=== PATIENT | female | born 1960 | race African-American/Black ===

== ENCOUNTER 2016-11-25 14:39 | Inpatient (IN) | payer MEDICARE, OTHER ==
[~2016-11-25] VITALS: Ht 162.6 cm; Wt 98.0 kg
[~2016-11-25 14:39] MED LIST: DIPH25CA58 PO; HYDR-963 PO; HYDR200T PO; IBUP-1027 PO; MULT1TAB52 PO; OXYC-323 PO; OXYC1TAB9 PO
[2016-11-25] MEDS ORDERED: IV NORMAL SALINE 1000ML BAG 1,000 ML IV ONE (15:15)
--- NOTE | 2016-11-25 15:26 | EKG ---
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
--- NOTE | 2016-11-25 15:30 | RAD ---
Indication change in mental status. Suspect CVA. Protocol study. A single view of the chest was obtained. Comparison is made to a previous examination 02/03/2015. Heart size is unremarkable. There is no congestive heart failure. A left Port-A-Cath is noted. Tiny calcified parenchymal granulomas are noted. An acute parenchymal infiltrate is not seen. A significant change compared to the prior study is not apparent. IMPRESSION: No acute finding. No significant change
[2016-11-25 15:31] LABS: BASO % 0 % (0-3); EOS % 0 % (0-3); HEMATOCRIT 43.1 % (36.0-47.0); HEMOGLOBIN 15.1 g/dL (12.0-15.5); LYMPH # 0.2 x10^3/uL (1.0-4.8); LYMPH % 4 % (24-48); MEAN CORPUSCULAR HEMOGLOBIN 30 pg (25-35); MEAN CORPUSCULAR HGB CONC 35 g/dL (31-37); MEAN CORPUSCULAR VOLUME 86 fL (79-100); MONO % 6 % (0-9); NEUT % 89 % (31-73); PLATELET COUNT 56 x10^3/uL (140-400); RED BLOOD COUNT 5.01 x10^6/uL (3.50-5.40); RED CELL DISTRIBUTION WIDTH 13.8 % (11.5-14.5); WHITE BLOOD COUNT 5.6 x10^3/uL (4.0-11.0)
[2016-11-25 15:36] LABS: INR 1.3 (0.8-1.1); PROTHROMBIN TIME PATIENT 15.6 SEC (11.7-14.0)
--- NOTE | 2016-11-25 15:46 | PHYS DOC ---
Past Medical History Past Medical History: Bipolar, Bronchitis, Other Additional Past Medical Histor: DJD,Lupus"in the skin not in the blood." Past Surgical History: Cholecystectomy, Tonsillectomy, Other Additional Past Surgical Histo: Bone spurs in neck. Alcohol Use: Occasionally Drug Use: Marijuana, Other Adult General Chief Complaint Chief Complaint: ALTERED MENTAL STATUS [facility] HPI Patient is a 55 year old female presenting to the emergency department for evaluation of altered mental status. Reportedly someone from her apartment complex came to check on her as known had seen her in 3 days and she was found passed out on the floor. EMS was called and they brought her to the emergency department for further evaluation. Patient is oriented to place and person but very confused on the day and she appears somewhat lethargic. She has some dried substance around her mouth and her mouth appears very dry. There is no obvious signs of trauma on her that there is some dried scab on the back of her head. She denies any pain to me. As we were looking through her purse to check for her medications she had a pill bottle of 5 mg oxycodone was written on November 14 for 180 pills that may be 30 pills were left in the bottle. Nurse later also found a white powdery substance as well. Review of Systems Review of Systems Constitutional: Denies fever or chills [] Eyes: Denies change in visual acuity, redness, or eye pain [] HENT: Denies nasal congestion or sore throat [] Respiratory: Denies cough or shortness of breath [] Cardiovascular: No additional information not addressed in HPI [] GI: Denies abdominal pain, nausea, vomiting, bloody stools or diarrhea [] : Denies dysuria or hematuria [] Musculoskeletal: Denies back pain or joint pain [] Integument: Denies rash or skin lesions [] Neurologic: Denies headache, focal weakness or sensory changes [] Endocrine: Denies polyuria or polydipsia [] Current Medications Current Medications Current Medications Medications (Trade) Dose Ordered Sig/Altaf Start Time Stop Time Status Last Admin Dose Admin Sodium Chloride 1,000 ml @ 1,000 mls/hr 1X ONCE 11/25/16 15:15 11/25/16 16:14 DC 11/25/16 15:56 1,000 MLS/HR Allergies Allergies Allergies Coded Allergies Type Severity Reaction Last Updated Verified Penicillins Adverse Reaction Intermediate NAUSEA AND VOMITING WITH PENICILLIN INJECTIONS/ORAL IS OK 05/12/15 Yes diazepam Adverse Reaction Intermediate NAUSEA AND VOMITING WITH IV DOSES/OK WITH ORAL FORM 05/12/15 Yes ibuprofen Adverse Reaction Intermediate LARGE DOSES CAUSE GI UPSET 05/12/15 Yes Physical Exam Physical Exam Constitutional: Well developed, well nourished, no acute distress, non-toxic appearance. [] HENT: Normocephalic, atraumatic, bilateral external ears normal, oropharynx dry Eyes: PERRLA, EOMI, conjunctiva normal, no discharge. [] Neck: Normal range of motion, no tenderness, supple, no stridor. [] Cardiovascular:Heart rate regular rhythm, no murmur [] Lungs & Thorax: Bilateral breath sounds clear to auscultation [] Abdomen: Bowel sounds normal, soft, mild lower tenderness, no rebound or guarding no masses, no pulsatile masses. [] Skin: Right volar wrist with multiple small red appearing lesions that were flat and non-blanchable. Back: No tenderness, no CVA tenderness. [] Extremities: No tenderness, no cyanosis, no clubbing, ROM intact, no edema. [] Neurologic: Alert and oriented X 2, moves all extremities Current Patient Data Vital Signs Vital Signs Date Time Temp Pulse Resp B/P (MAP) Pulse Ox O2 Delivery O2 Flow Rate FiO2 11/25/16 16:30 92 23 108/61 (77) 96 Room Air 11/25/16 14:39 98.5 98.5 Lab Values Laboratory Tests Test 11/25/16 14:55 11/25/16 15:41 White Blood Count 5.6 x10^3/uL (4.0-11.0) Red Blood Count 5.01 x10^6/uL (3.50-5.40) Hemoglobin 15.1 g/dL (12.0-15.5) Hematocrit 43.1 % (36.0-47.0) Mean Corpuscular Volume 86 fL (79-100) Mean Corpuscular Hemoglobin 30 pg (25-35) Mean Corpuscular Hemoglobin Concent 35 g/dL (31-37) Red Cell Distribution Width 13.8 % (11.5-14.5) Platelet Count 56 x10^3/uL (140-400) L Neutrophils (%) (Auto) 89 % (31-73) H Lymphocytes (%) (Auto) 4 % (24-48) L Monocytes (%) (Auto) 6 % (0-9) Eosinophils (%) (Auto) 0 % (0-3) Basophils (%) (Auto) 0 % (0-3) Neutrophils # (Auto) 5.0 x10^3uL (1.8-7.7) Lymphocytes # (Auto) 0.2 x10^3/uL (1.0-4.8) L Monocytes # (Auto) 0.4 x10^3/uL (0.0-1.1) Eosinophils # (Auto) 0.0 x10^3/uL (0.0-0.7) Basophils # (Auto) 0.0 x10^3/uL (0.0-0.2) Prothrombin Time 15.6 SEC (11.7-14.0) H Prothrombin Time INR 1.3 (0.8-1.1) H PTT 29 SEC (24-38) Sodium Level 125 mmol/L (136-145) L Potassium Level 2.3 mmol/L (3.5-5.1) *L Chloride Level 88 mmol/L (98-107) L Carbon Dioxide Level 23 mmol/L (21-32) Anion Gap 14 (6-14) Blood Urea Nitrogen 12 mg/dL (7-20) Creatinine 0.7 mg/dL (0.6-1.0) Estimated GFR (Cockcroft-Gault) 105.1 BUN/Creatinine Ratio 17 (6-20) Glucose Level 113 mg/dL (70-99) H Lactic Acid Level 2.0 mmol/L (0.4-2.0) Calcium Level 8.9 mg/dL (8.5-10.1) Magnesium Level 2.0 mg/dL (1.8-2.4) Total Bilirubin 1.3 mg/dL (0.2-1.0) H Aspartate Amino Transferase (AST) 88 U/L (15-37) H Alanine Aminotransferase (ALT) 43 U/L (14-59) Alkaline Phosphatase 74 U/L (46-116) Creatine Kinase 1113 U/L (26-192) H Troponin I Quantitative 0.046 ng/mL (0.000-0.055) [id number]-Type Natriuretic Peptide 6907 pg/mL (0-124) H Total Protein 7.1 g/dL (6.4-8.2) Albumin 2.8 g/dL (3.4-5.0) L Albumin/Globulin Ratio 0.7 (1.0-1.7) L Lipase 603 U/L (73-393) H Thyroid Stimulating Hormone (TSH) 0.586 uIU/mL (0.358-3.74) Salicylates Level < 2.8 mg/dL (2.8-20.0) L Salicylate Last Dose Date Unk Salicylate Last Dose Time Unk Acetaminophen Level < 10 mcg/ml (10-30) L Acetaminophen Last Dose Date Unk Acetaminophen Last Dose Time Unk Ethyl Alcohol Level < 10 mg/dL (0-10) Urine Collection Type U cath Urine Color [place] Urine Clarity Cloudy Urine pH 6.0 Urine Specific [place] 1.025 Urine Protein >=300 mg/dL (NEG-TRACE) Urine Glucose (UA) Negative mg/dL (NEG) Urine Ketones (Stick) 40 mg/dL (NEG) Urine Blood Large (NEG) Urine Nitrite Negative (NEG) Urine Bilirubin Small (NEG) Urine Urobilinogen Dipstick 1.0 mg/dL (0.2 mg/dL) Urine Leukocyte Esterase Small (NEG) Urine RBC Occ /HPF (0-2) Urine WBC 11-20 /HPF (0-4) Urine Squamous Epithelial Cells Few /LPF Urine Bacteria Many /HPF (0-FEW) Urine Hyaline Casts Few /HPF Urine Mucus Slight /LPF Urine Opiates Screen Neg (NEG) Urine Methadone Screen Neg (NEG) Urine Barbiturates Neg (NEG) Urine Phencyclidine Screen Neg (NEG) Urine Amphetamine/Methamphetamine Pos (NEG) Urine Benzodiazepines Screen Neg (NEG) Urine Cocaine Screen Neg (NEG) Urine Cannabinoids Screen Neg (NEG) Urine Ethyl Alcohol Neg (NEG) Laboratory Tests 11/25/16 14:55 Laboratory Tests 11/25/16 14:55 EKG EKG Sinus rhythm at 99 beats per minutes with leftward axis no deviation no obvious ST elevation or depression and normal T waves. Radiology/Procedures Radiology/Procedures Indication change in mental status. Suspect CVA. Protocol study. A single view of the chest was obtained. Comparison is made to a previous examination 02/03/2015. Heart size is unremarkable. There is no congestive heart failure. A left Port-A-Cath is noted. Tiny calcified parenchymal granulomas are noted. An acute parenchymal infiltrate is not seen. A significant change compared to the prior study is not apparent. IMPRESSION: No acute finding. No significant change DICTATED and SIGNED BY: BRITNEY MACDONALD MD DATE: 11/25/[address] of the head without contrast, 11/25/2016: History: Altered mental status The ventricles are within normal limits in size. There is no shift of the midline structures. There is no evidence of acute intracranial hemorrhage or mass effect. IMPRESSION: No acute intracranial abnormality is detected. PQRS Compliance Statement: One or more of the following individualized dose reduction techniques were utilized for this examination: 1. Automated exposure control 2. Adjustment of the mA and/or kV according to patient size 3. Use of iterative reconstruction technique DICTATED and SIGNED BY: NIMA ROD MD DATE: 11/25/16 1542 Course & Med Decision Making Course & Med Decision Making Patient with undifferentiated altered mental status however substance abuse seems to be the most likely etiology based off the information I have. We'll check screening labs give fluids and reassess. Patient is suffering from some sort of metabolic encephalopathy. She has some possible petechial. Lesions on her right wrist and she is thrombocytopenic so we 'll go ahead and give a dose of IV Rocephin. She has normal lactic acid and white blood cell count so she is not septic. Patient is profoundly hypokalemic so she was given an oral potassium pill in addition to potassium IV fluids. Patient will be admitted to the hospital in guarded condition given her mental status and profound metabolic derangements. Critical care time of 35 minutes Dragon Disclaimer Dragon Disclaimer This electronic medical record was generated, in whole or in part, using a voice recognition dictation system. Departure Departure Impression: Primary Impression: Encephalopathy acute Additional Impressions: Hypokalemia Hyponatremia Thrombocytopenia Disposition: 09 ADMITTED INPATIENT Admitting Physician: Other (REUSCH) Condition: GUARDED Referrals: AMA LR MD (PCP) Problem Qualifiers MARIE HURT DO Nov 25, 2016 15:46
--- NOTE | 2016-11-25 15:54 | ACF ---
Admit Criteria Forms Admit Criteria Forms Admit Criteria Forms MENTAL STATUS CHANGE Clinical Indications for Inpatient Care (Place 'X' for any and all applicable criteria): Ongoing inpatient care may be needed for 1 or more of the following(1)(2)(3)(5)( 6): [X]I. Suspected serious etiology (eg, medical disorder, WIRE SPLICER event) of altered mental status [ ]II. Danger to self or others not manageable at lower level of care [ ]III. Grave disability (eg, inability to perform self care necessary at lower level of care) [ ]IV. Agitation or inappropriate behavior interfering with care for primary condition (eg, attempting to discontinue lines or drains prematurely, unable to cooperate with respiratory care) [ ]V. Delirium [A] [D][E] as described by 1 or more of the following(26): [ ]a) Delirium due to alcohol or sedative [F] withdrawal [ ]b) Delirium of uncertain etiology that has not responded to appropriate empiric treatment [ ]c) Delirium that prevents performance of a life-sustaining function (eg, feeding or hydrating oneself) [X]. General contraindications and/or Inappropriate clinical situations for Observational Care in patients with Mental Status Change, when ANY ONE of the following is required: [X]a) Prediction of prolongation of LOS based on ANY ONE of the following may be considered as a contraindication for observational care 2, 3, 4, 5, 6, 7, 8, 9, 10, 11 [ ]i) Age > 65 yrs. [X]ii) Patient arriving by ambulance [ ]iii) Patient with high acuity [ ]iv) Patient requiring vital sign monitoring [ ]v) Patient on IV medication [ ]b) Systolic blood pressures greater than or equal to 180mmHg 3, 12 [ ]c) Patient with altered mental status including delirium and other alteration of consciousness, (3) [ ]d) Patient whose discharge disposition will be to a [place] [facility] home or rehabilitation home should not be managed in Emergency Department Observation Unit. CMS rule requires 3 days hospital stay before such placement.3,13 [ ]e) Patient with failure to thrive due to broad array of etiologies 3,16,17 [ ]f) Inability to ambulate 3,14 Extended stay beyond goal length of stay for the primary condition may be needed until ALL of the following are present(3)(5): [ ]a) Underlying medical etiology of mental status change is absent, or has been established and adequately treated [ ]b) Danger to self or others is absent or manageable at lower level of care. [ ]c) Behavior crisis management, including physical or chemical restraints, is not required or available at lower level of car [ ]d) Substance or alcohol withdrawal is absent or manageable at lower level of care. [ ]e) Behavioral symptoms (eg, agitation, somnolence, inappropriate behavior) are absent, or are manageable at lower level of care. The original [facility] content created by [facility] has been revised. The portions of the content which have been revised are identified through the use of italic text or in bold, and [facility] has neither reviewed nor approved the modified material. All other unmodified content is copyright [facility]. Please see references footnoted in the original [facility] [employer] edition 2016 SDUHA MATTSON Nov 25, 2016 15:54
[2016-11-25 15:56] LABS: BILIRUBIN,URINE SMALL (NEG); GLUCOSE,URINE NEGATIVE (NEG); NITRITE,URINE NEGATIVE (NEG); PROTEIN,URINE >=300 mg/dL (NEG-TRACE)
[2016-11-25 16:03] LABS: BARBITURATES NEG (NEG); BENZODIAZEPINES NEG (NEG); CANNABINOIDS NEG (NEG); COCAINE NEG (NEG); METHADONE NEG (NEG); OPIATES NEG (NEG); PHENCYCLIDINE NEG (NEG)
[2016-11-25 16:16] LABS: ETHANOL < 10 mg/dL (0-10)
[2016-11-25 16:28] LABS: ALBUMIN 2.8 g/dL (3.4-5.0); ALBUMIN/GLOBULIN RATIO 0.7 (1.0-1.7); CALCIUM 8.9 mg/dL (8.5-10.1); CREATININE 0.7 mg/dL (0.6-1.0); GFR 105.1; TOTAL BILIRUBIN 1.3 mg/dL (0.2-1.0); TOTAL PROTEIN 7.1 g/dL (6.4-8.2)
[2016-11-25 16:43] LABS: POTASSIUM 2.3 mmol/L (3.5-5.1)
[2016-11-25 16:45] LABS: BACTERIA,URINE MANY /HPF (0-FEW); RBC,URINE OCC /HPF (0-2); SQUAMOUS EPITHELIAL CELL,UR FEW /LPF
[2016-11-25] MEDS ORDERED: ONDANSETRON PF 4 MG/2 ML VIAL. IV PRN (16:45)
[2016-11-25] MEDS ORDERED: POTASSIUM CL 40MEQ IN 0.9%NACL 1,000 ML IV ONE (17:00)
[2016-11-25] MEDS ORDERED: POTASSIUM CHLORIDE 20 MEQ TABLET.ER. PO ONE (17:00)
[2016-11-25] MEDS ORDERED: POTASSIUM CL 40MEQ D5-0.45NACL 1,000 ML IV ONE (17:00)
[2016-11-25 19:00] VITALS: BP 118/71
[2016-11-25] MEDS ORDERED: HYDR200T5 PO (20:54)
[2016-11-25] MEDS ORDERED: HYDR25TA PO (20:54)
[2016-11-25] MEDS ORDERED: ALPR0.254 PO (20:54)
[2016-11-25] MEDS ORDERED: BUPR100T11 PO (20:54)
[2016-11-25] MEDS ORDERED: CLON0.1T PO (20:54)
[2016-11-25] MEDS ORDERED: [UNRECOGNIZED DRUG - CODE] NS (20:54)
[2016-11-25] MEDS ORDERED: ONDA8TAB14 PO (20:54)
[2016-11-25] MEDS ORDERED: GABA300C8 PO (20:54)
[2016-11-25] MEDS ORDERED: DULO60CA44 PO (20:54)
[2016-11-25] MEDS ORDERED: FURO20TA3 PO (20:54)
[2016-11-25] MEDS ORDERED: ROPI0.252 PO (20:54)
[2016-11-25] MEDS ORDERED: RANI150C PO (20:54)
[2016-11-25] MEDS ORDERED: NYST15CR TP (20:54)
[2016-11-25] MEDS ORDERED: ALBU1.25 NEB (20:54)
[2016-11-25] MEDS ORDERED: OXYC5TAB PO (20:54)
[2016-11-25] MEDS ORDERED: AZIT250T6 PO (20:54)
[2016-11-25] MEDS ORDERED: LISI-334 PO (20:54)
[2016-11-25] MEDS ORDERED: PREG150C PO (20:54)
[2016-11-25] MEDS ORDERED: FAMC125T PO (20:54)
[2016-11-25] MEDS ORDERED: ALPRAZolam 0.25 MG TABLET PO PRN (21:00)
[2016-11-25] MEDS: NYSTATIN 100,000 UNIT/GM TOPICAL CREAM 15GM TUBE. TP SCH (21:00)
[2016-11-25] MEDS ORDERED: IBUPROFEN 400 MG TABLET. PO PRN (21:00)
--- NOTE | 2016-11-25 22:07 | HP ---
ADMIT DATE: 11/25/2016 CHIEF COMPLAINT: Altered mental status. HISTORY OF PRESENT ILLNESS: This is a 55-year-old woman with past medical history of bipolar, systemic lupus as well as breast cancer with completed treatment by the end of last year, who presented to the Emergency Room with altered mental status. Reportedly, she was found down by one of her friends in the apartment complex when she was noted to be absent from the community for about 3 days. EMS was called, and she was brought in for further evaluation and treatment. The patient was still confused in the Emergency Room and appears lethargic. This seems to be continuing at this time. She is not quite sure what happened. She denies any pain currently. She does have two scabs in the back of her head with dried blood. In the Emergency Room, her purse was examined, and oxycodone bottle was found, which had been written on 11/14/2016 with 180 pills. The vast majority of these were gone. A white powder was found as well, and the patient's drug screen was found positive for methamphetamine, negative for opioids. The patient is now admitted for further management and care. PAST MEDICAL HISTORY: Bipolar disorder, lupus, on Plaquenil; breast cancer, T2N1A HER2 positive, completed Herceptin by the end of last year; DJD with bone spurs in her neck, and bronchitis. FAMILY HISTORY: No known disorders prevalent. SOCIAL HISTORY: Lives by herself, admits to marijuana. Denies any methamphetamine use. ALLERGIES: No known drug allergies. MEDICATIONS: MAR reconciled with home meds. REVIEW OF SYSTEMS: The patient currently denies any pain. She is lethargic and cannot recall any further details but is aware that she is now at [facility]. Rest of organ system review is negative. PHYSICAL EXAMINATION: VITAL SIGNS: From today show a blood pressure of 126/69, heart rate of 96, respiratory rate of 23. She is afebrile. GENERAL: This is a 55-year-old, obese, woman, lethargic, responding appropriately, but significant memory lapses about the recent history. HEENT: Shows no scleral icterus. Oral mucosa is very dry. NECK: Supple. LUNGS: Clear. HEART: Regular rate and rhythm. ABDOMEN: Obese, positive bowel sounds. EXTREMITIES: Show no edema. Medial upper thighs with erythema. LABORATORY DATA: CBC with a WBC of 5.6, hemoglobin 15.1, and platelets of 56. Neutrophils at 89%. Chemistries with a BUN and creatinine of 12 and 0.7, potassium at 2.3, sodium 125, CO2 at 23, total bilirubin 1.3, AST at 88, CK 1113, proBNP 6907, albumin 2.8, lipase at 603, and initial troponin 0.046. Coags with a PT and PTT of 15.6 and 2.9. Of note, historical data revealed hepatitis C positive in 2013. Toxicology screen is positive for methamphetamines and negative for opioids or other drugs. IMAGING STUDIES: Chest x-ray with no acute findings. CT of the head is revealing no acute intracranial abnormality. ASSESSMENT AND PLAN: The patient is a 55-year-old woman with several medical issues who was found down for unknown etiology. Apparently, she did have some diarrhea at home. It is unclear how long this had been going on. This would certainly explain the sides of dehydration as well as low potassium. We will give IV fluids, replete electrolytes, monitor magnesium, phos, and potassium as well as sodium. 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 It is unclear if she actually is taking these as her screen has been negative. She maintains that in the past 4 days she has not been able to eat or drink anything. Nevertheless, over 100 pills are missing from her bottle which was just issued 1 week ago. This in conjunction with methamphetamine in her drug screen is somewhat suspicious for abuse, potential sale of her prescription medications. We will hold off for now. For neuropathy, she would be better served with Neurontin. The patient is on Plaquenil for her lupus. We will continue the medications as no blood count abnormality except for thrombocytopenia as noted. Although this is a potential side effect, I doubt that this is related. Monitor counts closely. The patient does have a historical finding of hepatitis C with genotype 1A. This is unclear if she was ever treated for this. The elevated liver function tests may be related versus more acute issue. We will monitor labs for the time being. For prophylaxis, we will omit heparin or heparinoids for the time being given her low platelet count. SCDs and compression stockings will be instituted. For reflux disease, we will start proton pump inhibitor. RICO WOODWARD MD DR: MEHNAZ/nts JOB#: [id number] / [id number] A Crowder MD [facility]
[2016-11-25] MEDS: POTASSIUM CHLORIDE 30 MEQ in IV NORMAL SALINE 1000ML BAG 1,000 ML IV SCH (22:25)
[2016-11-25] MEDS: GABAPENTIN 300 MG CAPSULE. PO SCH (22:26)
[2016-11-25] MEDS: FAMOTIDINE 20 MG TABLET. PO SCH (22:26)
[2016-11-25] MEDS: buPROPion 100 MG TABLET PO SCH (22:26)
[2016-11-25 23:00] VITALS: BP 120/52
[2016-11-26] MEDS ORDERED: NON FORMULARY ITEM (Albuterol Sulfate (Albuterol Sulfate Neb Soln) 1 VIAL) NEB SCH
[2016-11-26 03:00] VITALS: BP 128/75
[2016-11-26 06:39] LABS: CALCIUM 8.9 mg/dL (8.5-10.1); CREATININE 0.7 mg/dL (0.6-1.0); GFR 105.1
[2016-11-26 06:48] LABS: ALBUMIN 2.4 g/dL (3.4-5.0); DIRECT BILIRUBIN 0.5 mg/dL (0.0-0.2); MAGNESIUM 1.8 mg/dL (1.8-2.4); TOTAL PROTEIN 5.8 g/dL (6.4-8.2)
[2016-11-26 06:50] LABS: POTASSIUM 2.9 mmol/L (3.5-5.1)
[2016-11-26 07:00] VITALS: BP 117/69
[2016-11-26 07:22] LABS: BASO % 0 % (0-3); EOS % 1 % (0-3); HEMATOCRIT 37.6 % (36.0-47.0); LYMPH # 0.3 x10^3/uL (1.0-4.8); LYMPH % 7 % (24-48); MEAN CORPUSCULAR HEMOGLOBIN 30 pg (25-35); MEAN CORPUSCULAR HGB CONC 35 g/dL (31-37); MEAN CORPUSCULAR VOLUME 87 fL (79-100); MONO % 8 % (0-9); NEUT % 84 % (31-73); PLATELET COUNT 39 x10^3/uL (140-400); RED CELL DISTRIBUTION WIDTH 14.3 % (11.5-14.5); WHITE BLOOD COUNT 4.1 x10^3/uL (4.0-11.0)
[2016-11-26] MEDS: POTASSIUM CHLORIDE 20 MEQ TABLET.ER. PO SCH ×2 (08:46→12:14)
[2016-11-26] MEDS: CROMOLYN 4% NASAL SPRAY 26ML BOTTLE. NS SCH (08:47)
[2016-11-26] MEDS: DULoxetine HCL 30 MG CAPSULE.DR PO SCH (08:48)
[2016-11-26] MEDS: cloNIDine HCL 0.1 MG TABLET PO SCH (08:48)
[2016-11-26] MEDS: FAMOTIDINE 20 MG TABLET. PO SCH ×2 (08:49→20:51)
[2016-11-26] MEDS: GABAPENTIN 300 MG CAPSULE. PO SCH ×2 (08:49→20:51)
[2016-11-26] MEDS: HYDROXYCHLOROQUINE 200 MG TABLET PO SCH (08:49)
[2016-11-26] MEDS: MULTIVITAMIN with MINERAL TABLET. PO SCH (08:50)
[2016-11-26] MEDS: LISINOPRIL 20 MG TABLET PO SCH (08:50)
[2016-11-26] MEDS: ONDANSETRON ODT 4 MG TAB.RAPDIS. PO SCH (08:51)
[2016-11-26] MEDS: NYSTATIN 100,000 UNIT/GM TOPICAL CREAM 15GM TUBE. TP SCH ×2 (08:52→20:53)
[2016-11-26 09:47] LABS: % EOS 1 % (0-5)
[2016-11-26 09:48] LABS: PLT ESTIMATE DECREASED (ADEQUATE)
[2016-11-26] MEDS: buPROPion 100 MG TABLET PO SCH ×2 (10:17→20:53)
[2016-11-26] MEDS: hydrOXYzine 10 MG TABLET PO SCH (10:17)
[2016-11-26 11:00] VITALS: BP 92/50
[2016-11-26] MEDS: POTASSIUM CHLORIDE 30 MEQ in IV NORMAL SALINE 1000ML BAG 1,000 ML IV SCH ×2 (12:13→17:18)
[2016-11-26 15:00] VITALS: BP 87/44
--- NOTE | 2016-11-26 15:51 | PDOC ---
PROGRESS NOTES Chief Complaint Chief Complaint Altered mental status Electrolyte derangements ASSESSMENT AND PLAN: 1. Encephalopathy: suspected metabolic/toxic, but cannot r/o hepatic or malignant. remains lethargic, but answering appropriately. NH3 pending. MRI brain ordered as well 2. UTI: empiric ceftriax. prelim culture with GNR 3. Diarrhea: intermittent; C.diff pending 4. Hyponatremia, Hypokalemia: severe; replete IV and PO 5. HCV 1A: dx.ed 3 yrs ago; unclear if treated. mild hepatitis by labs is sl improved. monitor; check NH3; viral load PCR only available on O/P basis 6. Peripheral neuropathy: chemo incuced. on lortab, but UDS neg for opioids... stop narcotics, start neurontin if indicated (currently no c/o) 7. Drug abuse: UDS is positive for meth, which she denies using 8. SLE: on plaquenil; cont home med 9. Thrombocytopenia: poss 2/2 plaquenil vs HCV induced. 10. Breast CA: completed triple rx last 11. GERD: PPI 12. Prophylaxis: SCDs. hold SQ 2/2 thrombocytopenia History of Present Illness History of Present Illness no pain. not feeling like getting up because "there is nothing to do" Vitals Vitals Vital Signs Date Time Temp Pulse Resp B/P (MAP) Pulse Ox O2 Delivery O2 Flow Rate FiO2 11/26/16 11:00 97.8 64 18 92/50 (64) 96 Room Air 97.8 Physical Exam General: Cooperative, No acute distress, Other (lethargic, answering appropriately) Heart: Regular rate Lungs: Clear Abdomen: Normal bowel sounds, Soft, No tenderness Extremities: No edema Skin: Other (erythema on neck and upper chest, per pt, c/w her SLE) Labs LABS Laboratory Tests Test 11/25/16 15:41 11/25/16 21:30 11/25/16 23:54 11/26/16 06:15 Urine Collection Type U cath Urine Color [place] Urine Clarity Cloudy Urine pH 6.0 Urine Specific [place] 1.025 Urine Protein >=300 mg/dL (NEG-TRACE) Urine Glucose (UA) Negative mg/dL (NEG) Urine Ketones (Stick) 40 mg/dL (NEG) Urine Blood Large (NEG) Urine Nitrite Negative (NEG) Urine Bilirubin Small (NEG) Urine Urobilinogen Dipstick 1.0 mg/dL (0.2 mg/dL) Urine Leukocyte Esterase Small (NEG) Urine RBC Occ /HPF (0-2) Urine WBC 11-20 /HPF (0-4) Urine Squamous Epithelial Cells Few /LPF Urine Bacteria Many /HPF (0-FEW) Urine Hyaline Casts Few /HPF Urine Mucus Slight /LPF Urine Opiates Screen Neg (NEG) Urine Methadone Screen Neg (NEG) Urine Barbiturates Neg (NEG) Urine Phencyclidine Screen Neg (NEG) Urine Amphetamine/Methamphetamine Pos (NEG) Urine Benzodiazepines Screen Neg (NEG) Urine Cocaine Screen Neg (NEG) Urine Cannabinoids Screen Neg (NEG) Urine Ethyl Alcohol Neg (NEG) Nasal Screen MRSA (PCR) Positive (Negative) Clostridium difficile Toxin (PCR) Negative (Negative) White Blood Count 4.1 x10^3/uL (4.0-11.0) Red Blood Count 4.30 x10^6/uL (3.50-5.40) Hemoglobin 13.0 g/dL (12.0-15.5) Hematocrit 37.6 % (36.0-47.0) Mean Corpuscular Volume 87 fL (79-100) Mean Corpuscular Hemoglobin 30 pg (25-35) Mean Corpuscular Hemoglobin Concent 35 g/dL (31-37) Red Cell Distribution Width 14.3 % (11.5-14.5) Platelet Count 39 x10^3/uL (140-400) Neutrophils (%) (Auto) 84 % (31-73) Lymphocytes (%) (Auto) 7 % (24-48) Monocytes (%) (Auto) 8 % (0-9) Eosinophils (%) (Auto) 1 % (0-3) Basophils (%) (Auto) 0 % (0-3) Neutrophils # (Auto) 3.4 x10^3uL (1.8-7.7) Lymphocytes # (Auto) 0.3 x10^3/uL (1.0-4.8) Monocytes # (Auto) 0.3 x10^3/uL (0.0-1.1) Eosinophils # (Auto) 0.0 x10^3/uL (0.0-0.7) Basophils # (Auto) 0.0 x10^3/uL (0.0-0.2) Segmented Neutrophils % 75 % (35-66) Band Neutrophils % 16 % (0-9) Lymphocytes % 3 % (24-48) Monocytes % 4 % (0-10) Eosinophils % 1 % (0-5) Metamyelocytes % 1 % (0-0) Platelet Estimate Decreased (ADEQUATE) Sodium Level 126 mmol/L (136-145) Potassium Level 2.9 mmol/L (3.5-5.1) Chloride Level 91 mmol/L (98-107) Carbon Dioxide Level 24 mmol/L (21-32) Anion Gap 11 (6-14) Blood Urea Nitrogen 10 mg/dL (7-20) Creatinine 0.7 mg/dL (0.6-1.0) Estimated GFR (Cockcroft-Gault) 105.1 Glucose Level 93 mg/dL (70-99) Calcium Level 8.9 mg/dL (8.5-10.1) Magnesium Level 1.8 mg/dL (1.8-2.4) Total Bilirubin 1.0 mg/dL (0.2-1.0) Direct Bilirubin 0.5 mg/dL (0.0-0.2) Aspartate Amino Transf (AST/SGOT) 73 U/L (15-37) Alanine Aminotransferase (ALT/SGPT) 37 U/L (14-59) Alkaline Phosphatase 64 U/L (46-116) Total Protein 5.8 g/dL (6.4-8.2) Albumin 2.4 g/dL (3.4-5.0) RICO WOODWARD MD Nov 26, 2016 15:51
[2016-11-26] MEDS: ALBUTEROL SULFATE 2.5 MG/3 ML NEBU. NEB SCH ×3 (16:00→17:16)
[2016-11-26] MEDS ORDERED: GADOBUTROL 10 MMOL/10 ML VIAL IV ONE (16:30)
--- NOTE | 2016-11-26 17:04 | RAD ---
MR BRAIN HISTORY: NO PRIORS....GAVE 9ML GADAVIST...GENERALIZED WEAKENS MENTAL STATUS CHANGE... TECHNIQUE: Axial diffusion weighted imaging was obtained. Additional sagittal T1, axial T1, axial FLAIR, and axial T2 weighted imaging of the brain was also performed. FINDINGS: There are a few scattered foci of FLAIR signal hyperintensity in the bilateral cerebral white matter. Nonspecific lesions but commonly related to sequelae of chronic small vessel ischemic disease. No evidence of acute intracranial hemorrhage. There is restricted diffusion involving the central portion of the splenium at midline. This shows very slight T2 hyperintensity. No extra-axial fluid collections. No midline shift or mass effect. Ventricular size is appropriate. There is a small focus of hemosiderin deposition in the posteromedial right temporal lobe likely from previous tiny microhemorrhage. Midline structures have a normal anatomic configuration. Basal cisterns are patent. Arterial flow voids at the skull base and major dural venous sinuses are maintained. Globes and orbits are unremarkable. Paranasal sinuses and mastoid air cells are clear. IMPRESSION: There is some restricted diffusion noted in the midline involving the splenium of the corpus callosum. This could represent a splenule infarct but is also a common place for artifact from the sudden cessation of antiepileptic medication or associated with patient's experiencing mild encephalitis/encephalopathy. ( Mild encephalopathy/encephalitis with reversible splenium lesion MERS). The latter is favored given the lack of other territorial areas of restricted diffusion. A follow-up MRI could confirm or refute this. Electronically signed by: Hunter Michaud MD (11/26/2016 5:01 PM)
[2016-11-26 18:41] LABS: BASO % 0 % (0-3); EOS % 1 % (0-3); HEMATOCRIT 38.9 % (36.0-47.0); HEMOGLOBIN 13.2 g/dL (12.0-15.5); LYMPH # 0.3 x10^3/uL (1.0-4.8); LYMPH % 10 % (24-48); MEAN CORPUSCULAR HEMOGLOBIN 30 pg (25-35); MEAN CORPUSCULAR HGB CONC 34 g/dL (31-37); MEAN CORPUSCULAR VOLUME 88 fL (79-100); MONO % 10 % (0-9); NEUT % 79 % (31-73); PLATELET COUNT 34 x10^3/uL (140-400); RED BLOOD COUNT 4.41 x10^6/uL (3.50-5.40); RED CELL DISTRIBUTION WIDTH 14.3 % (11.5-14.5); WHITE BLOOD COUNT 3.3 x10^3/uL (4.0-11.0)
[2016-11-26 18:49] LABS: ALBUMIN 2.4 g/dL (3.4-5.0); ALBUMIN/GLOBULIN RATIO 0.6 (1.0-1.7); CALCIUM 8.9 mg/dL (8.5-10.1); CREATININE 0.9 mg/dL (0.6-1.0); GFR 78.7; POTASSIUM 3.8 mmol/L (3.5-5.1); TOTAL PROTEIN 6.5 g/dL (6.4-8.2)
[2016-11-26 19:00] VITALS: BP 97/54
[2016-11-26 23:00] VITALS: BP 83/50
[2016-11-27] MEDS: POTASSIUM CHLORIDE 30 MEQ in IV NORMAL SALINE 1000ML BAG 1,000 ML IV SCH ×2 (00:13→09:18)
[2016-11-27 03:00] VITALS: BP 105/55
[2016-11-27 07:00] VITALS: BP 121/69
[2016-11-27] MEDS: ALBUTEROL SULFATE 2.5 MG/3 ML NEBU. NEB SCH ×4 (07:12→20:07)
[2016-11-27] MEDS: POTASSIUM CHLORIDE 20 MEQ TABLET.ER. PO SCH ×2 (08:34→11:52)
[2016-11-27] MEDS: CROMOLYN 4% NASAL SPRAY 26ML BOTTLE. NS SCH (08:34)
[2016-11-27] MEDS: hydrOXYzine 10 MG TABLET PO SCH (08:37)
[2016-11-27] MEDS: cloNIDine HCL 0.1 MG TABLET PO SCH (08:37)
[2016-11-27] MEDS: DULoxetine HCL 30 MG CAPSULE.DR PO SCH (08:38)
[2016-11-27] MEDS: GABAPENTIN 300 MG CAPSULE. PO SCH ×2 (08:38→21:03)
[2016-11-27] MEDS: HYDROXYCHLOROQUINE 200 MG TABLET PO SCH (08:39)
[2016-11-27] MEDS: FAMOTIDINE 20 MG TABLET. PO SCH ×2 (08:39→21:03)
[2016-11-27] MEDS: LISINOPRIL 20 MG TABLET PO SCH (08:39)
[2016-11-27] MEDS: MULTIVITAMIN with MINERAL TABLET. PO SCH (08:39)
[2016-11-27] MEDS: ONDANSETRON ODT 4 MG TAB.RAPDIS. PO SCH (08:40)
[2016-11-27] MEDS: buPROPion 100 MG TABLET PO SCH ×2 (08:40→21:03)
[2016-11-27] MEDS: NYSTATIN 100,000 UNIT/GM TOPICAL CREAM 15GM TUBE. TP SCH ×2 (08:41→21:03)
[2016-11-27] MEDS ORDERED: oxyCODONE IR 5 MG TABLET PO PRN (10:15)
[2016-11-27 10:58] VITALS: BP 96/57
--- NOTE | 2016-11-27 13:05 | PDOC ---
PROGRESS NOTES Chief Complaint Chief Complaint Altered mental status Electrolyte derangements ASSESSMENT AND PLAN: 1. Encephalopathy: suspected metabolic/toxic (low Na, meth). remains lethargic, but answering appropriately. NH3 neg, MRI w/o significant abn. she states she is at her baseline. 2. UTI: empiric ceftriax. prelim culture with GNR 3. Diarrhea: intermittent; C.diff neg 4. Hyponatremia: ongoing; unclear etiology. stop IVF. strict I&O. urine Na 5. Hypokalemia: severe at POA, now resolved 5. HCV 1A: dx.ed 3 yrs ago; unclear if treated. mild hepatitis by labs is sl improved. monitor; check NH3; viral load PCR only available on O/P basis 6. Peripheral neuropathy: chemo induced. on lortab, but UDS neg for opioids... stop narcotics, start neurontin if indicated (currently no c/o) 7. Drug abuse: UDS is positive for meth, which she denies using 8. SLE: on plaquenil; cont home med 9. Thrombocytopenia: poss 2/2 plaquenil vs HCV induced. 10. Breast CA: completed triple rx last 11. GERD: PPI 12. Prophylaxis: SCDs. hold SQ 2/2 thrombocytopenia 13. Dispo: OT/PT rec.s for SNF. to be arranged History of Present Illness History of Present Illness sitting in chair. eyes closed, but answering in complete and logical sentences Vitals Vitals Vital Signs Date Time Temp Pulse Resp B/P (MAP) Pulse Ox O2 Delivery O2 Flow Rate FiO2 11/27/16 11:39 20 97 Room Air 11/27/16 10:58 97.9 67 96/57 (70) 97.9 Physical Exam General: Oriented X3, Cooperative, No acute distress, Other (lethargic, answering appropriately) Heart: Regular rate Lungs: Clear Abdomen: Normal bowel sounds, Soft, No tenderness Extremities: No edema Skin: Other (erythema on neck and upper chest, per pt, c/w her SLE) Labs LABS Laboratory Tests Test 11/26/16 18:00 White Blood Count 3.3 x10^3/uL (4.0-11.0) Red Blood Count 4.41 x10^6/uL (3.50-5.40) Hemoglobin 13.2 g/dL (12.0-15.5) Hematocrit 38.9 % (36.0-47.0) Mean Corpuscular Volume 88 fL (79-100) Mean Corpuscular Hemoglobin 30 pg (25-35) Mean Corpuscular Hemoglobin Concent 34 g/dL (31-37) Red Cell Distribution Width 14.3 % (11.5-14.5) Platelet Count 34 x10^3/uL (140-400) Neutrophils (%) (Auto) 79 % (31-73) Lymphocytes (%) (Auto) 10 % (24-48) Monocytes (%) (Auto) 10 % (0-9) Eosinophils (%) (Auto) 1 % (0-3) Basophils (%) (Auto) 0 % (0-3) Neutrophils # (Auto) 2.6 x10^3uL (1.8-7.7) Lymphocytes # (Auto) 0.3 x10^3/uL (1.0-4.8) Monocytes # (Auto) 0.3 x10^3/uL (0.0-1.1) Eosinophils # (Auto) 0.0 x10^3/uL (0.0-0.7) Basophils # (Auto) 0.0 x10^3/uL (0.0-0.2) Sodium Level 126 mmol/L (136-145) Potassium Level 3.8 mmol/L (3.5-5.1) Chloride Level 93 mmol/L (98-107) Carbon Dioxide Level 23 mmol/L (21-32) Anion Gap 10 (6-14) Blood Urea Nitrogen 15 mg/dL (7-20) Creatinine 0.9 mg/dL (0.6-1.0) Estimated GFR (Cockcroft-Gault) 78.7 BUN/Creatinine Ratio 17 (6-20) Glucose Level 102 mg/dL (70-99) Calcium Level 8.9 mg/dL (8.5-10.1) Total Bilirubin 1.0 mg/dL (0.2-1.0) Aspartate Amino Transf (AST/SGOT) 72 U/L (15-37) Alanine Aminotransferase (ALT/SGPT) 36 U/L (14-59) Alkaline Phosphatase 66 U/L (46-116) Ammonia < 10 mcmol/L (11-34) Total Protein 6.5 g/dL (6.4-8.2) Albumin 2.4 g/dL (3.4-5.0) Albumin/Globulin Ratio 0.6 (1.0-1.7) RICO WOODWARD MD Nov 27, 2016 13:05
[2016-11-27 13:47] LABS: ALBUMIN 2.2 g/dL (3.4-5.0); ALBUMIN/GLOBULIN RATIO 0.6 (1.0-1.7); CALCIUM 8.6 mg/dL (8.5-10.1); CREATININE 0.6 mg/dL (0.6-1.0); GFR 125.6; POTASSIUM 4.3 mmol/L (3.5-5.1); TOTAL BILIRUBIN 0.7 mg/dL (0.2-1.0); TOTAL PROTEIN 6.2 g/dL (6.4-8.2)
[2016-11-27 13:49] LABS: BASO % 1 % (0-3); EOS % 1 % (0-3); HEMATOCRIT 34.8 % (36.0-47.0); LYMPH # 0.5 x10^3/uL (1.0-4.8); LYMPH % 12 % (24-48); MEAN CORPUSCULAR HEMOGLOBIN 30 pg (25-35); MEAN CORPUSCULAR HGB CONC 35 g/dL (31-37); MEAN CORPUSCULAR VOLUME 87 fL (79-100); MONO % 12 % (0-9); NEUT % 75 % (31-73); PLATELET COUNT 41 x10^3/uL (140-400); RED CELL DISTRIBUTION WIDTH 14.4 % (11.5-14.5); WHITE BLOOD COUNT 4.3 x10^3/uL (4.0-11.0)
[2016-11-27 15:00] VITALS: BP 99/59
[2016-11-27 19:00] VITALS: BP 107/58
[2016-11-27] MEDS ORDERED: hydrOXYzine PAMOATE 25 MG CAPSULE PO SCH (21:05)
[2016-11-27] MEDS: oxyCODONE IR 5 MG TABLET PO PRN (21:41)
[2016-11-27 23:00] VITALS: BP 104/55
[2016-11-28 03:12] VITALS: BP 109/72
[2016-11-28] MEDS: oxyCODONE IR 5 MG TABLET PO PRN (04:05)
[2016-11-28 07:00] VITALS: BP 104/52
[2016-11-28] MEDS: ALBUTEROL SULFATE 2.5 MG/3 ML NEBU. NEB SCH ×2 (07:11→11:15)
[2016-11-28] MEDS: POTASSIUM CHLORIDE 20 MEQ TABLET.ER. PO SCH ×2 (07:45→11:33)
[2016-11-28 08:30] LABS: SODIUM, URINE <20 mmol/L (Not Estab.)
[2016-11-28] MEDS: cloNIDine HCL 0.1 MG TABLET PO SCH (09:00)
[2016-11-28] MEDS: LISINOPRIL 20 MG TABLET PO SCH (09:00)
[2016-11-28] MEDS: buPROPion 100 MG TABLET PO SCH (09:17)
[2016-11-28] MEDS: GABAPENTIN 300 MG CAPSULE. PO SCH (09:17)
[2016-11-28] MEDS: DULoxetine HCL 30 MG CAPSULE.DR PO SCH (09:17)
[2016-11-28] MEDS: FAMOTIDINE 20 MG TABLET. PO SCH (09:17)
[2016-11-28] MEDS: ONDANSETRON ODT 4 MG TAB.RAPDIS. PO SCH (09:18)
[2016-11-28] MEDS: HYDROXYCHLOROQUINE 200 MG TABLET PO SCH (09:18)
[2016-11-28] MEDS: NYSTATIN 100,000 UNIT/GM TOPICAL CREAM 15GM TUBE. TP SCH (09:19)
[2016-11-28] MEDS: MULTIVITAMIN with MINERAL TABLET. PO SCH (09:19)
[2016-11-28 11:00] VITALS: BP 105/57
[2016-11-28] MEDS: CROMOLYN 4% NASAL SPRAY 26ML BOTTLE. NS SCH (14:36)
[2016-11-28 14:44] VITALS: BP 110/53
--- NOTE | 2016-11-28 15:49 | PDOC ---
PROGRESS NOTES Chief Complaint Chief Complaint Altered mental status Electrolyte derangements ASSESSMENT AND PLAN: 1. Encephalopathy: suspected metabolic/toxic (low Na, meth). improving; remains lethargic, but answering appropriately. NH3 neg, MRI w/o significant abn. she states she is at her baseline. 2. UTI: Ecoli, pansensitive. stop ceftriax (3 doses) 3. Diarrhea: intermittent; C.diff neg 4. Hyponatremia: improving. unclear etiology. appropriately low urine sodium , ruling out SIADH. monitor periodically 5. Hypokalemia: severe at POA, now resolved 5. HCV 1A: dx.ed 3 yrs ago; unclear if treated. mild hepatitis by labs is sl improved. monitor; check NH3; viral load PCR only available on O/P basis 6. Peripheral neuropathy: chemo induced. on lortab, but UDS neg for opioids... neurontin bid, oxy as last resort 7. Drug abuse: UDS is positive for meth, which she denies using 8. SLE: on plaquenil; cont home med 9. Thrombocytopenia: poss 2/2 plaquenil vs HCV induced. 10. Breast CA: completed triple rx last 11. GERD: PPI 12. Prophylaxis: SCDs. hold SQ 2/2 thrombocytopenia 13. Dispo: to SNF today History of Present Illness History of Present Illness sitting in chair. eyes closed, but answering in complete and logical sentences Vitals Vitals Vital Signs Date Time Temp Pulse Resp B/P (MAP) Pulse Ox O2 Delivery O2 Flow Rate FiO2 11/28/16 14:44 98.1 90 22 110/53 (72) 97 Room Air 98.1 Physical Exam General: Oriented X3, Cooperative, No acute distress, Other (lethargic, answering appropriately) Heart: Regular rate Lungs: Clear Abdomen: Normal bowel sounds, Soft, No tenderness Extremities: No edema Skin: Other (erythema on neck and upper chest, per pt, c/w her SLE) RICO WOODWARD MD Nov 28, 2016 15:49
[2016-11-28] MEDS ORDERED: OXYC5TAB PO (15:56)
--- NOTE | 2016-11-29 01:11 | DS ---
DATE OF DISCHARGE: 11/28/2016 CHIEF COMPLAINT: Altered mental status, electrolyte derangements. HOSPITAL COURSE: The patient is a 55-year-old woman who presented to the hospital after being found down by her neighbor for unknown amount of time. Encephalopathy was diagnosed in the Emergency Room and suspected to be secondary to methamphetamine for which she was found positive. She did have a prescription from her oncologist for oxycodone for peripheral neuropathy, chemo-induced, which was three quarters gone, although just been within the week prior. However, UDS was negative for opioids. During her hospitalization, her mental status slowly cleared. She, however, seemed very lethargic and sleeping easily. In entire workup including hepatic encephalopathy and breast cancer, mets to brain could be ruled out with lab studies and MRI. She was found with a sodium of 126 at admission, which did not seem to respond to IV normal saline repletion initially. However, with time, sodium slowly began improving. She was also found with UTI, E. coli, which was pansensitive. She received ceftriaxone for 3 doses. Intermittent diarrhea was shown to be C. diff negative and resolved spontaneously. Hypokalemia at admission was thought to be secondary to fluid and electrolyte losses due to diarrhea. This resolved completely with serial repletion. Multiple chronic issues were maintained on her home medications including systemic lupus erythematosus on Plaquenil, peripheral neuropathy on Neurontin, opioids sparingly sparingly. She received a PPI for GERD. She was found with thrombocytopenia and in further review of old charts, she was found to have been diagnosed with hepatitis C. It was unclear if she ever had been treated for this in the past 3 years. Mild transaminitis was attributed to this diagnosis. Ammonia level, however, was completely negative. Thrombocytopenia was also moderate and attributed to hepatitis. In evaluation by physical therapy, she was thought to benefit from rehab placement. She initially declined this, but later agreed and was accepted on 11/28/2016. DISCHARGE DATE: 11/28/2016. DISCHARGE DIAGNOSES: Altered mental status, methamphetamine use, urinary tract infection, hypokalemia and hyponatremia. DISCHARGE DISPOSITION: To SNF. DISCHARGE CONDITION: Improved. DISCHARGE MEDICATIONS: Please refer to the transfer sheet. DISCHARGE INSTRUCTIONS: The patient will follow up with PCP and Oncology after discharge back to home. RICO WOODWARD MD DR: MEHNAZ/nts JOB#: [id number] / [id number] A Crowder MD [facility]
[2016-11-29] MEDS ORDERED: CROMOLYN 4% NASAL SPRAY 26ML BOTTLE. NS SCH (09:00)
== END 2016-11-28 17:49 | DRG 640 ==
LOC: ER 14:39 → 5 NORTH 16:43
PROVIDERS: ADMIT Internal Medicine Hematology & Oncology; ATTEND Internal Medicine Hematology & Oncology
DX: E86.0 Dehydration (principal); G93.40 Encephalopathy, unspecified; R65.11 Systemic inflammatory response syndrome (SIRS) of non-infectious origin with acute organ dysfunction; N39.0 Urinary tract infection, site not specified; E44.0 Moderate protein-calorie malnutrition; E87.1 Hypo-osmolality and hyponatremia; F31.9 Bipolar disorder, unspecified; M19.90 Unspecified osteoarthritis, unspecified site; F12.90 Cannabis use, unspecified, uncomplicated; E87.6 Hypokalemia; D69.6 Thrombocytopenia, unspecified; K21.9 Gastro-esophageal reflux disease without esophagitis; G62.9 Polyneuropathy, unspecified; B19.20 Unspecified viral hepatitis C without hepatic coma; M32.9 Systemic lupus erythematosus, unspecified; B96.20 Unspecified Escherichia coli [E. coli] as the cause of diseases classified elsewhere; F15.90 Other stimulant use, unspecified, uncomplicated; R74.0 Nonspecific elevation of levels of transaminase and lactic acid dehydrogenase [LDH]; Z88.0 Allergy status to penicillin; Z90.89 Acquired absence of other organs; Z90.49 Acquired absence of other specified parts of digestive tract; Z85.3 Personal history of malignant neoplasm of breast; Z88.6 Allergy status to analgesic agent; Z88.8 Allergy status to other drugs, medicaments and biological substances
CPT/HCPCS: 36415; 70450; 70553; 71010; 80048; 80053; 80076; 80329; 81001; 82140; 82436; 82550; 82962; 83605; 83690; 83735; 83880; 84133; 84300; 84443; 84484; 85007; 85027; 85610; 85730; 87086; 87186; 87324; 87641; 93005; 94640; 94760; 96365; 96366; 96367; 96375; A9585; G0480; G0481; J0690; J0696; J2405; J3480; J7030; Q0162; Q0177; 97110; 97535; 99291-25

== ENCOUNTER 2016-12-06 15:40 | Inpatient (IN) | payer MEDICARE, OTHER ==
[~2016-12-06] VITALS: Ht 162.6 cm; Wt 105.7 kg
[2016-12-06] VITALS (10 sets, daily range): BP systolic 75–103; BP diastolic 5–57
[~2016-12-06 15:40] MED LIST changes: +ALBU1.25 NEB; +ALPR0.254 PO; +AZIT250T6 PO; +BUPR100T11 PO; +CLON0.1T PO; +DULO60CA44 PO; +FAMC125T PO; +FURO20TA3 PO; +GABA300C8 PO; +HYDR200T5 PO; +HYDR25TA PO; +LISI-334 PO; +NYST15CR TP; +ONDA8TAB14 PO; +OXYC5TAB PO; +PREG150C PO; +RANI150C PO; +ROPI0.252 PO; +[UNRECOGNIZED DRUG - CODE] NS
[2016-12-06] MEDS ORDERED: IV NORMAL SALINE 1000ML BAG 1,000 ML IV ONE ×3 (16:15→19:15)
[2016-12-06 16:23] LABS: BASO % 1 % (0-3); EOS % 1 % (0-3); HEMATOCRIT 23.1 % (36.0-47.0); HEMOGLOBIN 7.8 g/dL (12.0-15.5); LYMPH # 0.2 x10^3/uL (1.0-4.8); LYMPH % 10 % (24-48); MEAN CORPUSCULAR HEMOGLOBIN 30 pg (25-35); MEAN CORPUSCULAR HGB CONC 34 g/dL (31-37); MEAN CORPUSCULAR VOLUME 89 fL (79-100); MONO % 7 % (0-9); NEUT % 81 % (31-73); PLATELET COUNT 27 x10^3/uL (140-400); RED CELL DISTRIBUTION WIDTH 14.5 % (11.5-14.5)
[2016-12-06 16:28] LABS: WHITE BLOOD COUNT 1.7 x10^3/uL (4.0-11.0)
[2016-12-06 16:36] LABS: CREATININE 1.6 mg/dL (0.6-1.0); GFR 40.5; POTASSIUM 3.7 mmol/L (3.5-5.1)
[2016-12-06 16:43] LABS: ALBUMIN 1.6 g/dL (3.4-5.0); ALBUMIN/GLOBULIN RATIO 0.4 (1.0-1.7); C-REACTIVE PROTEIN 191.2 mg/L (0-3.3); TOTAL BILIRUBIN 1.1 mg/dL (0.2-1.0); TOTAL PROTEIN 5.4 g/dL (6.4-8.2)
--- NOTE | 2016-12-06 16:43 | RAD ---
AP portable chest radiograph 12/06/2016 Clinical History: Shortness of breath. An AP portable erect digital radiograph of the chest was obtained. Comparison study is dated 11/25/2016. A left subclavian Htqely-a-Ahaj type catheter is unchanged in position. The cardiac silhouette is mildly enlarged. The thoracic aorta is minimally tortuous. Calcified right paratracheal lymph nodes are unchanged. No area of consolidation is seen. No pneumothorax or significant pleural effusion is noted. The osseous structures are unchanged. Impression: No area of consolidation is seen.
[2016-12-06 16:50] LABS: BILIRUBIN,URINE MODERATE (NEG); GLUCOSE,URINE NEGATIVE (NEG); NITRITE,URINE NEGATIVE (NEG); PROTEIN,URINE 30 mg/dL (NEG-TRACE)
[2016-12-06 16:58] LABS: PLT ESTIMATE DECREASED (ADEQUATE)
[2016-12-06 16:58] LABS: BACTERIA,URINE 0 /HPF (0-FEW); RBC,URINE 0 /HPF (0-2)
[2016-12-06 17:00] LABS: TOXIC VACUOLATION MOD
[2016-12-06] MEDS ORDERED: VANCOMYCIN 2 GM in IV NORMAL SALINE 500ML BAG 500 ML IV ONE (17:00)
[2016-12-06 17:01] LABS: TOXIC GRANULATION MOD
[2016-12-06 17:02] LABS: FIO2 ABG 28; HCO3 ABG 20 mmol/L (21-28); PCO2 ABG 30 mmHg (35-46); PH ABG 7.43 (7.35-7.45); PO2 ABG 75 mmHg (75-108); SAT O2 ABG 94 % (92-99)
[2016-12-06] MEDS ORDERED: SUCCINYLCHOLINE 200 MG/10 ML VIAL. IV ONE (17:15)
[2016-12-06] MEDS ORDERED: ETOMIDATE 20 MG/10 ML VIAL. IV ONE (17:15)
[2016-12-06] MEDS: MEROPENEM 500 MG in IV NORMAL SALINE 50ML 50 ML IV SCH (17:26)
--- NOTE | 2016-12-06 17:26 | ED.ADGEN ---
Past Medical History Past Medical History: Bipolar, Bronchitis, Cancer, GERD, Hepatitis, MRSA, Other Additional Past Medical Histor: DJD,Lupus"in the skin not in the blood.",VIRAL HEP C,DRUG INDUCED POLYNEUR Past Surgical History: Cholecystectomy, Tonsillectomy, Other Additional Past Surgical Histo: Bone spurs in neck,R MASTECTOMY,HEP B&C Additional Information: 1 PPD Alcohol Use: Occasionally Drug Use: Marijuana, Other Adult General Chief Complaint Chief Complaint: HYPOTENSION HPI HPI Patient is a 55 year old female with history of lupus, immunocompromise currently on Plaquenil who presents with altered mental status , tachycardia and hypotension from outpatient rehabilitation. Reportedly, the patient being diagnosed with urinary tract infection earlier today. She was started on Rocephin, this afternoon, the patient reportedly being confused with abnormal vital signs and was referred to the ED for further evaluation. History is limited by the patient's clinical condition. Review of Systems Review of Systems ROS unobtainable. Current Medications Current Medications Current Medications Medications (Trade) Dose Ordered Sig/Altaf Start Time Stop Time Status Last Admin Dose Admin Sodium Chloride 1,000 ml @ 1,000 mls/hr 1X ONCE 12/06/16 16:15 12/06/16 17:14 DC 12/06/16 16:18 1,000 MLS/HR Allergies Allergies Allergies Coded Allergies Type Severity Reaction Last Updated Verified I S O L A T I O N *CONTACT* Allergy Unknown 11/27/16 Yes Penicillins Adverse Reaction Intermediate NAUSEA AND VOMITING WITH PENICILLIN INJECTIONS/ORAL IS OK 05/12/15 Yes diazepam Adverse Reaction Intermediate NAUSEA AND VOMITING WITH IV DOSES/OK WITH ORAL FORM 05/12/15 Yes ibuprofen Adverse Reaction Intermediate LARGE DOSES CAUSE GI UPSET 05/12/15 Yes Physical Exam Physical Exam Constitutional: Acutely ill-appearing. HENT: Normocephalic, atraumatic, bilateral external ears normal, oropharynx, dry , no oral exudates, nose normal. Eyes: PERRL. Neck: Supple. Cardiovascular: Tachycardia. Lungs & Thorax: Respirations nonlabored, mildly diminished. Abdomen: Bowel sounds normal, soft, no tenderness. Skin: Mottling of torso. Back: No tenderness. Neurologic: Decreased mentation with with disorientation. Current Patient Data Vital Signs Vital Signs Date Time Temp Pulse Resp B/P (MAP) Pulse Ox O2 Delivery O2 Flow Rate FiO2 12/06/16 15:40 98.8 94 26 107/59 (75) 97 Nasal Cannula 2.0 98.8 Lab Values Laboratory Tests Test 12/06/16 16:03 12/06/16 16:06 12/06/16 16:40 O2 Saturation 94 % (92-99) Arterial Blood pH 7.43 (7.35-7.45) Arterial Blood pCO2 at Patient Temp 30 mmHg (35-46) L Arterial Blood pO2 at Patient Temp 75 mmHg (75-108) Arterial Blood HCO3 20 mmol/L (21-28) L Arterial Blood Base Excess -4 mmol/L (-3-3) L FiO2 28 White Blood Count 1.7 x10^3/uL (4.0-11.0) *L Red Blood Count 2.60 x10^6/uL (3.50-5.40) L Hemoglobin 7.8 g/dL (12.0-15.5) L Hematocrit 23.1 % (36.0-47.0) L Mean Corpuscular Volume 89 fL (79-100) Mean Corpuscular Hemoglobin 30 pg (25-35) Mean Corpuscular Hemoglobin Concent 34 g/dL (31-37) Red Cell Distribution Width 14.5 % (11.5-14.5) Platelet Count 27 x10^3/uL (140-400) L Neutrophils (%) (Auto) 81 % (31-73) H Lymphocytes (%) (Auto) 10 % (24-48) L Monocytes (%) (Auto) 7 % (0-9) Eosinophils (%) (Auto) 1 % (0-3) Basophils (%) (Auto) 1 % (0-3) Neutrophils # (Auto) 1.4 x10^3uL (1.8-7.7) L Lymphocytes # (Auto) 0.2 x10^3/uL (1.0-4.8) L Monocytes # (Auto) 0.1 x10^3/uL (0.0-1.1) Eosinophils # (Auto) 0.0 x10^3/uL (0.0-0.7) Basophils # (Auto) 0.0 x10^3/uL (0.0-0.2) Segmented Neutrophils % 68 % (35-66) H Band Neutrophils % 30 % (0-9) H Lymphocytes % 2 % (24-48) L Toxic Granulation Mod Toxic Vacuolation Mod Dohle Bodies Present Platelet Estimate Decreased (ADEQUATE) Sodium Level 126 mmol/L (136-145) L Potassium Level 3.7 mmol/L (3.5-5.1) Chloride Level 94 mmol/L (98-107) L Carbon Dioxide Level 22 mmol/L (21-32) Anion Gap 10 (6-14) Blood Urea Nitrogen 61 mg/dL (7-20) H Creatinine 1.6 mg/dL (0.6-1.0) H Estimated GFR (Cockcroft-Gault) 40.5 BUN/Creatinine Ratio 38 (6-20) H Glucose Level 94 mg/dL (70-99) Calcium Level 8.0 mg/dL (8.5-10.1) L Total Bilirubin 1.1 mg/dL (0.2-1.0) H Aspartate Amino Transferase (AST) 85 U/L (15-37) H Alanine Aminotransferase (ALT) 51 U/L (14-59) Alkaline Phosphatase 64 U/L (46-116) Ammonia 13 mcmol/L (11-34) C-Reactive Protein, Quantitative 191.2 mg/L (0-3.3) H VO-Zjc-[id number]-Type Natriuretic Peptide 5646 pg/mL (0-124) H Total Protein 5.4 g/dL (6.4-8.2) L Albumin 1.6 g/dL (3.4-5.0) L Albumin/Globulin Ratio 0.4 (1.0-1.7) L Urine Collection Type Unknown Urine Color Andrews Urine Clarity Cloudy Urine pH 5.0 Urine Specific [place] 1.020 Urine Protein 30 mg/dL (NEG-TRACE) Urine Glucose (UA) Negative mg/dL (NEG) Urine Ketones (Stick) Trace mg/dL (NEG) Urine Blood Negative (NEG) Urine Nitrite Negative (NEG) Urine Bilirubin Moderate (NEG) Urine Urobilinogen Dipstick 1.0 mg/dL (0.2 mg/dL) Urine Leukocyte Esterase Small (NEG) Urine RBC 0 /HPF (0-2) Urine WBC 5-10 /HPF (0-4) Urine Amorphous Sediment Present /HPF Urine Bacteria 0 /HPF (0-FEW) Urine Hyaline Casts Many /HPF Urine Granular Casts Occasional /HPF Laboratory Tests 6/16/17 16:06 Laboratory Tests 12/06/16 16:06 EKG EKG [EKG normal sinus rate 94, ST segments-limited interpretation due to artifact, QTC 433] Radiology/Procedures Radiology/Procedures [Chest x-ray: No acute cardiopulmonary disease per radiology report Post Intubation chest x-ray: Endotracheal tube in good position, patient with diffuse interstitial markings not present on previous imaging study] Course & Med Decision Making Course & Med Decision Making Pertinent Labs and Imaging studies reviewed. (See chart for details) [Patient with severe sepsis and hypotension with unknown worse. Rest of IV fluids, broad-spectrum antibiotics given. Due to hemodynamics instability, and worsening respiratory status, the patient was intubated while in the emergency department. Dr. Green agrees to admit to the ICU. Dr. Alan will infectious disease consult, Dr. Janes GUNN, neurology/critical care consultation. Attempts to notify next of kin/family friend were unsuccessful. Dragon Disclaimer Dragon Disclaimer This electronic medical record was generated, in whole or in part, using a voice recognition dictation system. LUIGI VIDES DO Dec 06, 2016 17:26
[2016-12-06] MEDS: VANCOMYCIN PER PHARMACY MC PRN (17:29)
[2016-12-06] MEDS ORDERED: MIDAZOLAM PREMIX 100 ML IV ONE (17:36)
[2016-12-06] MEDS ORDERED: MIDAZOLAM HCL/PF 5 MG/5 ML VIAL. ONE (17:37)
[2016-12-06] MEDS ORDERED: MIDAZOLAM HCL/PF 2 MG/2 ML VIAL. IV PRN (17:45)
--- NOTE | 2016-12-06 18:13 | ACF ---
Admission Forms Criteria SEPSIS and OTHER FEBRILE ILLNESS, W/O FOCAL INFECTION Clinical Indications for Admission to Inpatient Care ( Place 'X' for any and all applicable criteria): Admission is indicated for ANY ONE of the following (1)(2)(3)(4): [ ] I. Bacteremia [ ]II. Suspected or identified specific infection requiring hospitalization (eg, meningitis, endocarditis) [ ]III. Hemodynamic instability [ ]IV. Altered mental status [X]V. Failure or unavailability of outpatient antimicrobial treatment [ ]. Hypoxemia [ ]VII. Seizures [ ]VIII. High-risk febrile neutropenia [ ]IX. Need for parenteral antibiotic in patient who is likely to abuse vascular access device (eg, injection drug user) [A](7) [ ]X. Temperature greater than 104.9 degrees F (40.5 degrees C) (oral) [ ]XI. Inpatient admission required rather than observation care because of ANY ONE of the following: [ ]1) Specific infection identified that is too severe for outpatient treatment or observation care trial [ ]2) Metabolic disorder (eg, hypoglycemia, hyperglycemia, metabolic acidosis) that is severe or persistent [ ]3) Temperature greater than 103.1 degrees F (39.5 degrees C) ( oral) that is not responsive to observation care treatment [ ]4) IV fluid to replace significant ongoing (eg, for over 24 hours) losses (> 3 L/m2 per day) [ ]5) Supplemental oxygen or respiratory treatments for over 24 hours that is performable only in acute inpatient setting [ ]6) Parenteral nutrition regimen need that must be implemented on inpatient basis [ ]7) Strict or protective (eg, laminar flow) isolation [ ]8) Other condition, treatment or monitoring requiring inpatient admission Extended stay beyond goal length of stay may be needed for(1)(3) [ ]a) Sepsis or septic shock(22) [ ]b) Positive blood cultures [ ]c) Insufficient oral intake [ ]d) High-risk febrile neutropenia(29)(30) [ ]e) Continued fever and clinical instability [ ]f) Clinically active comorbid illness (e.g,heart failure, renal failure , diabetes) The original [employer] content created by [employer] has been revised. The portions of the content which have been revised are identified through the use of italic text or in bold, and [employer] has neither reviewed nor approved the modified material. All other unmodified content is copyright [facility]. Please see references footnoted in the original [facility] edition 2016 Admission Criteria Met?: Yes ALONDRA SANDERSON Dec 06, 2016 18:13
--- NOTE | 2016-12-06 18:40 | PDOC1 ---
History and Physical Past Medical History Cardiovascular: No pertinent hx Pulmonary: No pertinent hx, Bronchitis CENTRAL NERVOUS SYSTEM: Periperal neuropathy GI: GERD, Other Heme/Onc: No pertinent hx Hepatobiliary: No pertinent hx Psych: Bipolar Rheumatologic: Other Infectious disease: No pertinent hx Renal/: No pertinent hx, Other Endocrine: Diabetes Past Surgical History Past Surgical History: Appendectomy, Cholecystectomy Family History Family History: Cancer Social History ALCOHOL: none Drugs: None Current Problem List Problem List Problems Medical Problems: (1) Respiratory failure Status: Acute Current Medications Current Medications Current Medications Medications (Trade) Dose Ordered Sig/Altaf Start Time Stop Time Status Last Admin Dose Admin Dopamine HCl/ Dextrose 250 ml @ 16.414 mls/ hr 1X ONCE 12/06/16 17:15 12/07/16 08:28 12/06/16 17:41 16.414 MLS/HR Etomidate (Amidate) 20 mg 1X ONCE 12/06/16 17:15 12/06/16 17:17 DC 12/06/16 17:19 20 MG Hydrocortisone Sodium Succinate (Solu-CORTEF) 100 mg Q8HRS 12/06/16 18:30 Levofloxacin/ Dextrose 150 ml @ 100 mls/hr 1X ONCE 12/06/16 17:00 12/06/16 18:29 DC Meropenem 500 mg/ Sodium Chloride 50 ml @ 100 mls/hr Q8HRS 12/06/16 18:00 12/06/16 17:26 100 MLS/HR Midazolam HCl (Versed) 5 mg PRN Q10MIN PRN 12/06/16 17:45 Sodium Chloride 1,000 ml @ 1,000 mls/hr 1X ONCE 12/06/16 17:00 12/06/16 17:59 DC 12/06/16 17:09 1,000 MLS/HR Succinylcholine Chloride (Anectine) 100 mg 1X ONCE 12/06/16 17:15 12/06/16 17:17 DC 12/06/16 17:20 100 MG Vancomycin HCl 1 each 1X ONCE 12/07/16 16:30 12/07/16 16:31 Vancomycin HCl (Vanco Per Pharmacy) 1 each PRN DAILY PRN 12/06/16 17:00 12/06/16 17:29 1 EACH Vancomycin HCl 1.25 gm/Sodium Chloride 250 ml @ 167 mls/hr Q24H 12/07/16 17:00 Vancomycin HCl 2 gm/Sodium Chloride 500 ml @ 250 mls/hr 1X ONCE 12/06/16 17:00 12/06/16 18:59 12/06/16 17:11 250 MLS/HR Allergies Allergies Allergies Coded Allergies Type Severity Reaction Last Updated Verified I S O L A T I O N *CONTACT* Allergy Unknown 11/27/16 Yes Penicillins Adverse Reaction Intermediate NAUSEA AND VOMITING WITH PENICILLIN INJECTIONS/ORAL IS OK 05/12/15 Yes diazepam Adverse Reaction Intermediate NAUSEA AND VOMITING WITH IV DOSES/OK WITH ORAL FORM 05/12/15 Yes ibuprofen Adverse Reaction Intermediate LARGE DOSES CAUSE GI UPSET 05/12/15 Yes ROS Review of System not able to obtain due to severity of condition, Physical Exam Physical Exam GEN.: sedated, incubated. HEENT: Head is normocephalic, atraumatic NECK: Supple. no JVD LUNGS: Clear to auscultation. Anterior, lot of secretions HEART: RRR, S1, S2 present. Peripheral pulses intact ABDOMEN: Soft, nontender. Positive bowel sounds. EXTREMITIES: Without any cyanosis. NEUROLOGIC: sedated. PSYCHIATRIC: SKIN: circular ecchymose on abdomen Vitals Vitals Vital Signs Date Time Temp Pulse Resp B/P (MAP) Pulse Ox O2 Delivery O2 Flow Rate FiO2 12/06/16 17:30 97 Ventilator 12/06/16 17:03 2.0 12/06/16 15:40 98.8 94 26 107/59 (75) 98.8 Labs Labs Laboratory Tests Test 12/06/16 16:03 12/06/16 16:06 12/06/16 16:40 O2 Saturation 94 % (92-99) Arterial Blood pH 7.43 (7.35-7.45) Arterial Blood pCO2 at Patient Temp 30 mmHg (35-46) Arterial Blood pO2 at Patient Temp 75 mmHg (75-108) Arterial Blood HCO3 20 mmol/L (21-28) Arterial Blood Base Excess -4 mmol/L (-3-3) FiO2 28 White Blood Count 1.7 x10^3/uL (4.0-11.0) Red Blood Count 2.60 x10^6/uL (3.50-5.40) Hemoglobin 7.8 g/dL (12.0-15.5) Hematocrit 23.1 % (36.0-47.0) Mean Corpuscular Volume 89 fL (79-100) Mean Corpuscular Hemoglobin 30 pg (25-35) Mean Corpuscular Hemoglobin Concent 34 g/dL (31-37) Red Cell Distribution Width 14.5 % (11.5-14.5) Platelet Count 27 x10^3/uL (140-400) Neutrophils (%) (Auto) 81 % (31-73) Lymphocytes (%) (Auto) 10 % (24-48) Monocytes (%) (Auto) 7 % (0-9) Eosinophils (%) (Auto) 1 % (0-3) Basophils (%) (Auto) 1 % (0-3) Neutrophils # (Auto) 1.4 x10^3uL (1.8-7.7) Lymphocytes # (Auto) 0.2 x10^3/uL (1.0-4.8) Monocytes # (Auto) 0.1 x10^3/uL (0.0-1.1) Eosinophils # (Auto) 0.0 x10^3/uL (0.0-0.7) Basophils # (Auto) 0.0 x10^3/uL (0.0-0.2) Segmented Neutrophils % 68 % (35-66) Band Neutrophils % 30 % (0-9) Lymphocytes % 2 % (24-48) Toxic Granulation Mod Toxic Vacuolation Mod Dohle Bodies Present Platelet Estimate Decreased (ADEQUATE) Sodium Level 126 mmol/L (136-145) Potassium Level 3.7 mmol/L (3.5-5.1) Chloride Level 94 mmol/L (98-107) Carbon Dioxide Level 22 mmol/L (21-32) Anion Gap 10 (6-14) Blood Urea Nitrogen 61 mg/dL (7-20) Creatinine 1.6 mg/dL (0.6-1.0) Estimated GFR (Cockcroft-Gault) 40.5 BUN/Creatinine Ratio 38 (6-20) Glucose Level 94 mg/dL (70-99) Calcium Level 8.0 mg/dL (8.5-10.1) Total Bilirubin 1.1 mg/dL (0.2-1.0) Aspartate Amino Transf (AST/SGOT) 85 U/L (15-37) Alanine Aminotransferase (ALT/SGPT) 51 U/L (14-59) Alkaline Phosphatase 64 U/L (46-116) Ammonia 13 mcmol/L (11-34) C-Reactive Protein, Quantitative 191.2 mg/L (0-3.3) DN-Qrv-[id number]-Type Natriuretic Peptide 5646 pg/mL (0-124) Total Protein 5.4 g/dL (6.4-8.2) Albumin 1.6 g/dL (3.4-5.0) Albumin/Globulin Ratio 0.4 (1.0-1.7) Urine Collection Type Unknown Urine Color [place] Urine Clarity Cloudy Urine pH 5.0 Urine Specific [place] 1.020 Urine Protein 30 mg/dL (NEG-TRACE) Urine Glucose (UA) Negative mg/dL (NEG) Urine Ketones (Stick) Trace mg/dL (NEG) Urine Blood Negative (NEG) Urine Nitrite Negative (NEG) Urine Bilirubin Moderate (NEG) Urine Urobilinogen Dipstick 1.0 mg/dL (0.2 mg/dL) Urine Leukocyte Esterase Small (NEG) Urine RBC 0 /HPF (0-2) Urine WBC 5-10 /HPF (0-4) Urine Amorphous Sediment Present /HPF Urine Bacteria 0 /HPF (0-FEW) Urine Hyaline Casts Many /HPF Urine Granular Casts Occasional /HPF Laboratory Tests Test 12/06/16 16:03 12/06/16 16:06 12/06/16 16:40 O2 Saturation 94 % (92-99) Arterial Blood pH 7.43 (7.35-7.45) Arterial Blood pCO2 at Patient Temp 30 mmHg (35-46) Arterial Blood pO2 at Patient Temp 75 mmHg (75-108) Arterial Blood HCO3 20 mmol/L (21-28) Arterial Blood Base Excess -4 mmol/L (-3-3) FiO2 28 White Blood Count 1.7 x10^3/uL (4.0-11.0) Red Blood Count 2.60 x10^6/uL (3.50-5.40) Hemoglobin 7.8 g/dL (12.0-15.5) Hematocrit 23.1 % (36.0-47.0) Mean Corpuscular Volume 89 fL (79-100) Mean Corpuscular Hemoglobin 30 pg (25-35) Mean Corpuscular Hemoglobin Concent 34 g/dL (31-37) Red Cell Distribution Width 14.5 % (11.5-14.5) Platelet Count 27 x10^3/uL (140-400) Neutrophils (%) (Auto) 81 % (31-73) Lymphocytes (%) (Auto) 10 % (24-48) Monocytes (%) (Auto) 7 % (0-9) Eosinophils (%) (Auto) 1 % (0-3) Basophils (%) (Auto) 1 % (0-3) Neutrophils # (Auto) 1.4 x10^3uL (1.8-7.7) Lymphocytes # (Auto) 0.2 x10^3/uL (1.0-4.8) Monocytes # (Auto) 0.1 x10^3/uL (0.0-1.1) Eosinophils # (Auto) 0.0 x10^3/uL (0.0-0.7) Basophils # (Auto) 0.0 x10^3/uL (0.0-0.2) Segmented Neutrophils % 68 % (35-66) Band Neutrophils % 30 % (0-9) Lymphocytes % 2 % (24-48) Toxic Granulation Mod Toxic Vacuolation Mod Dohle Bodies Present Platelet Estimate Decreased (ADEQUATE) Sodium Level 126 mmol/L (136-145) Potassium Level 3.7 mmol/L (3.5-5.1) Chloride Level 94 mmol/L (98-107) Carbon Dioxide Level 22 mmol/L (21-32) Anion Gap 10 (6-14) Blood Urea Nitrogen 61 mg/dL (7-20) Creatinine 1.6 mg/dL (0.6-1.0) Estimated GFR (Cockcroft-Gault) 40.5 BUN/Creatinine Ratio 38 (6-20) Glucose Level 94 mg/dL (70-99) Calcium Level 8.0 mg/dL (8.5-10.1) Total Bilirubin 1.1 mg/dL (0.2-1.0) Aspartate Amino Transf (AST/SGOT) 85 U/L (15-37) Alanine Aminotransferase (ALT/SGPT) 51 U/L (14-59) Alkaline Phosphatase 64 U/L (46-116) Ammonia 13 mcmol/L (11-34) C-Reactive Protein, Quantitative 191.2 mg/L (0-3.3) YY-Did-E-Type Natriuretic Peptide 5646 pg/mL (0-124) Total Protein 5.4 g/dL (6.4-8.2) Albumin 1.6 g/dL (3.4-5.0) Albumin/Globulin Ratio 0.4 (1.0-1.7) Urine Collection Type Unknown Urine Color [place] Urine Clarity Cloudy Urine pH 5.0 Urine Specific [place] 1.020 Urine Protein 30 mg/dL (NEG-TRACE) Urine Glucose (UA) Negative mg/dL (NEG) Urine Ketones (Stick) Trace mg/dL (NEG) Urine Blood Negative (NEG) Urine Nitrite Negative (NEG) Urine Bilirubin Moderate (NEG) Urine Urobilinogen Dipstick 1.0 mg/dL (0.2 mg/dL) Urine Leukocyte Esterase Small (NEG) Urine RBC 0 /HPF (0-2) Urine WBC 5-10 /HPF (0-4) Urine Amorphous Sediment Present /HPF Urine Bacteria 0 /HPF (0-FEW) Urine Hyaline Casts Many /HPF Urine Granular Casts Occasional /HPF VTE Prophylaxis Ordered VTE Prophylaxis Devices: Contraindicated VTE Pharmacological Prophylaxi: Contraindicated REDD CAN MD Dec 06, 2016 18:39
[2016-12-06] MEDS ORDERED: ACETAMINOPHEN 325 MG TABLET. PO PRN (19:00)
[2016-12-06] MEDS ORDERED: NOREPINEPHRINE VIAL 16 MG in IV NORMAL SALINE 250ML 250 ML IV PRN (19:00)
[2016-12-06] MEDS ORDERED: NOREPINEPHRIN PREMIX 250 ML IV PRN (19:00)
[2016-12-06] MEDS ORDERED: ONDANSETRON PF 4 MG/2 ML VIAL. IV PRN (19:00)
[2016-12-06] MEDS: IV NORMAL SALINE 1000ML BAG 1,000 ML IV SCH (19:48)
[2016-12-06] MEDS: HYDROCORTISONE SOD SUCC/PF 100 MG/2 ML VIAL. IV SCH (19:55)
[2016-12-06] MEDS: PANTOPRAZOLE IV PUSH 40 MG VIAL. IVP SCH (19:55)
[2016-12-06 21:28] LABS: FIO2 ABG 40; HCO3 ABG 17 mmol/L (21-28); PCO2 ABG 30 mmHg (35-46); PH ABG 7.36 (7.35-7.45); PO2 ABG 134 mmHg (75-108); SAT O2 ABG 98 % (92-99)
--- NOTE | 2016-12-06 22:40 | HP ---
ADMIT DATE: 12/06/2016 CHIEF COMPLAINT: Hypotension. HISTORY OF PRESENT ILLNESS: A 55-year-old female patient who was recently discharged from [facility], brought back to the ER with complaints of altered mental status and hypotension. Reportedly, the patient was treated for urinary tract infection with Rocephin; however, her blood pressures did not improve. Old records reviewed. She was here with altered mental status, suspect due to narcotic abuse. At the time of arrival to the ER, the patient was hypotensive and she received IV hydration and also placed on vasopressors such as dopamine. Later, after some time, ER physician thought the patient may not maintain her airway and she was intubated to protect her airway. At the time of my examination, no family members available. The patient is intubated, sedated, currently on pressors and IV hydration. PAST MEDICAL HISTORY: Bipolar, breast cancer, GERD, hepatitis, MRSA, lupus, degenerative joint disease, viral hepatitis C, drug induced PAST SURGICAL HISTORY: Cholecystectomy, tonsillectomy, surgical history of, bone spurs and mastectomy. PERSONAL HISTORY: Smoking positive, occasionally drinks alcohol and substance abuse positive. FAMILY HISTORY: Per records, cancer, not able to verify. REVIEW OF SYSTEMS: Not able to obtain. ALLERGIES: PENICILLIN, DIAZEPAM, REVIEW OF SYSTEMS AND PHYSICAL EXAMINATION: Please see my electronic H and P. LABORATORY DATA: Chemistry: Sodium 126, potassium is 3.7, chloride is 94, gap is 10, BUN is 61, creatinine 1.6. Total bilirubin 1.2. CRP 191. ProBNP 5646. Hematology: WBC 1.7, hemoglobin is 7.8, MCV 89, platelets 27. INR is 1.3. Urine protein 30, ____ nitrites negative, leukocyte esterase small. IMAGING STUDIES: Chest x-ray: No area of consolidation noted. ASSESSMENT: 1. Shock. 2. Pancytopenia. 3. Suspected neutropenic fevers. 4. Dehydration. 5. Lupus. 6. Recently treated urinary tract infection, Escherichia coli. 7. Hyponatremia. PLAN: 1. The patient has been placed in Critical Care Unit and will continue IV antibiotics, meropenem and vancomycin. Vancomycin is to be dosed according to renal functions. 2. Monitor CBC and BMP closely. The patient is at high risk for bleeding due to thrombocytopenia. 3. Consult Oncology. Replace platelets if the patient's platelets drop less than 10 with any episodes of bleeding. 4. IV hydration, normal saline bolus 1 liter now and change fluids to 125 mL per hour normal saline and add Levophed to keep MAP around 65. 5. We will order an echocardiogram in the a.m. 6. Infectious Disease consult and Pulmonology consult. 7. The patient currently resting comfortably on ventilator and we will consult Pulmonology. 8. ABGs daily. 9. Vent protocol, Protonix. PROGNOSIS: Guarded. CONDITION: Critical. Total critical care time is 35 minutes. Plan discussed with RN. REDD CAN MD DR: ANMOL/cricket JOB#: [id number] / [id number] ANDREI
[2016-12-07] VITALS (24 sets, daily range): BP systolic 86–155; BP diastolic 46–82
[2016-12-07] MEDS: MEROPENEM 500 MG in IV NORMAL SALINE 50ML 50 ML IV SCH ×4 (00:21→21:36)
[2016-12-07 05:01] LABS: BARBITURATES NEG (NEG); BENZODIAZEPINES POS (NEG); CANNABINOIDS NEG (NEG); COCAINE NEG (NEG); METHADONE NEG (NEG); OPIATES POS (NEG); PHENCYCLIDINE NEG (NEG)
[2016-12-07] MEDS: IV NORMAL SALINE 1000ML BAG 1,000 ML IV SCH ×3 (05:08→20:27)
[2016-12-07 05:14] LABS: BASO % 1 % (0-3); EOS % 3 % (0-3); HEMATOCRIT 25.6 % (36.0-47.0); HEMOGLOBIN 8.6 g/dL (12.0-15.5); LYMPH # 0.2 x10^3/uL (1.0-4.8); LYMPH % 9 % (24-48); MEAN CORPUSCULAR HEMOGLOBIN 30 pg (25-35); MEAN CORPUSCULAR HGB CONC 34 g/dL (31-37); MEAN CORPUSCULAR VOLUME 90 fL (79-100); MONO % 8 % (0-9); NEUT % 79 % (31-73); PLATELET COUNT 37 x10^3/uL (140-400); RED BLOOD COUNT 2.85 x10^6/uL (3.50-5.40); RED CELL DISTRIBUTION WIDTH 15.2 % (11.5-14.5); WHITE BLOOD COUNT 2.7 x10^3/uL (4.0-11.0)
[2016-12-07] MEDS: HYDROCORTISONE SOD SUCC/PF 100 MG/2 ML VIAL. IV SCH ×3 (05:16→21:36)
[2016-12-07 05:42] LABS: CALCIUM 7.6 mg/dL (8.5-10.1); GFR 69.7; POTASSIUM 3.7 mmol/L (3.5-5.1)
[2016-12-07] MEDS: PANTOPRAZOLE IV PUSH 40 MG VIAL. IVP SCH (07:48)
[2016-12-07 07:50] LABS: HCO3 ABG 16 mmol/L (21-28); PCO2 ABG 27 mmHg (35-46); PH ABG 7.39 (7.35-7.45); PO2 ABG 150 mmHg (75-108); SAT O2 ABG 99 % (92-99)
[2016-12-07 07:52] LABS: FIO2 ABG 40
--- NOTE | 2016-12-07 08:48 | PDOC ---
Provider Note Provider Note [id number] acute resp fail abnl cxr septic shock cont vent support until more stable. MAYURI WHITNEY MD Dec 07, 2016 08:48
--- NOTE | 2016-12-07 09:03 | RAD ---
EXAM: Chest one view. HISTORY: Intubated, respiratory failure. COMPARISON: 12/06/2016, 1626. FINDINGS: A frontal view of the chest is obtained. An endotracheal tube has its tip 1 cm above the nunu. A left-sided port catheter has its tip in the superior cavoatrial junction. Multifocal airspace opacities most notable in the left apex and right base have increased since the prior study. There is no pneumothorax or pleural effusion. The heart is mildly enlarged. Calcified mediastinal lymph nodes are likely secondary to old granulomatous disease. There are multiple calcified parenchymal granulomas bilaterally. IMPRESSION: 1. Increased airspace infiltrates in the left upper lobe and right base. 2. Mild cardiomegaly.
[2016-12-07] MEDS ORDERED: PNEUMOCOCCAL VAX SCREEN BY RX. MC PRN (09:30)
--- NOTE | 2016-12-07 10:04 | CONS ---
DATE OF CONSULTATION: 12/07/2016 I was asked to see this 55-year-old lady for acute respiratory failure and septic shock. HISTORY OF PRESENT ILLNESS: The patient is currently on the ventilator and sedated and is not able to give me any information. All of the information was obtained from chart and nursing staff. She has lupus and is immunocompromised. She is on Plaquenil. She was brought to the Emergency Room with altered mental status and hypertension. I think earlier yesterday, she was diagnosed with a UTI. She was given Rocephin. Her respiratory status is get worse. In the Emergency Room, she was intubated. She was given IV fluid. She is now on Levophed. PAST MEDICAL HISTORY: History of breast cancer, gastroesophageal reflux disease; lupus on Plaquenil, immunocompromised; hepatitis; MRSA; DJD and hepatitis C. PAST SURGICAL HISTORY: Cholecystectomy, tonsillectomy, and mastectomy. SOCIAL HISTORY: Positive for smoking details are not known. FAMILY HISTORY: Positive for cancer, not able to verify. ALLERGIES: PENICILLIN, DIAZEPAM AND IBUPROFEN. MEDICATIONS: Currently she is on Levophed, vancomycin, Protonix, IV fluid, meropenem, Solu-Cortef 100 mg IV every 8 hours. REVIEW OF SYSTEMS: As mentioned as above. I have discussed the patient with RN and RT. Other systems are otherwise negative. PHYSICAL EXAMINATION: GENERAL: This is a well-developed lady on the ventilator. She is sedated. VITAL SIGNS: Her O2 saturation on 40% FiO2 is 98%, respiratory rate 22, heart rate 84, blood pressure 120/63 temperature 98. HEENT: Normocephalic, atraumatic. Pupils are equal, round and reactive to light. She is orally intubated. Nose is clear. NECK: There is no JVD, lymphadenopathy or thyromegaly. CARDIOVASCULAR: Regular rate and rhythm. PMI is nondisplaced. CHEST: Inspection is normal. LUNGS: There are bibasilar crackles, dullness at the bases. ABDOMEN: Soft. Bowel sounds are good. There is no mass. EXTREMITIES: There is trace edema. LYMPHATICS: There is no lymphadenopathy. NEUROLOGIC: She is sedated. SKIN: Warm. LABORATORY DATA: I reviewed the following lab data: Chest x-ray does show bilateral infiltrate, which is worsening right lower lobe area. ABG this morning, pH 7.39, pCO2 of 27, pO2 of 150. Sodium 132, potassium 3.7, chloride 101, CO2 of 20, glucose 118, BUN 42, creatinine 1, yesterday creatinine was 1.6. WBC 2.7, hemoglobin 8.6, platelet 37. Her urine drug screen is positive for opioid and benzodiazepine. IMPRESSION: 1. Acute respiratory failure, multifactorial in etiology. 2. Abnormal chest x-ray could be secondary to volume overdose, congestive heart failure or pneumonia. 3. Septic shock? source. 4. Hypotension. 5. Pancytopenia. 6. Systemic lupus erythematosus, immunocompromised. 7. Hyponatremia. 8. Acute kidney injury. 9. History of breast cancer. 10. Hepatitis C. 11. Gastroesophageal reflux disease. 12. MRSA colonization. PLAN AND RECOMMENDATIONS: 1. Titrate FiO2 to keep O2 saturation 94%. 2. Continue ventilator support. Ventilator setting was reviewed. We will continue ventilator support until the patient is more stable and off pressors. 3. Continue antibiotic. ID is consulted. 4. Follow up sheikh cultures. 5. Protonix for stress ulcer prophylaxis. 6. Start DuoNeb. 7. SCDs. 8. A.m. ABG and portable chest x-ray. 9. solucortef 100 mg q 8hrs The findings and recommendations were discussed with RN and RT. Thank you very much for allowing me to participate in care of this very nice lady. Liliam WORTHY/cricket JOB#: [id number] / [id number] ANDREI
--- NOTE | 2016-12-07 10:06 | PDOC1 ---
History and Physical Past Medical History Cardiovascular: No pertinent hx Pulmonary: No pertinent hx, Bronchitis CENTRAL NERVOUS SYSTEM: Periperal neuropathy GI: GERD, Other Heme/Onc: No pertinent hx Hepatobiliary: No pertinent hx Psych: Bipolar Rheumatologic: Other Infectious disease: No pertinent hx Renal/: No pertinent hx, Other Endocrine: Diabetes Past Surgical History Past Surgical History: Appendectomy, Cholecystectomy Family History Family History: Cancer Social History ALCOHOL: none Drugs: None Current Problem List Problem List Problems Medical Problems: (1) Respiratory failure Status: Acute Current Medications Current Medications Current Medications Medications (Trade) Dose Ordered Sig/Altaf Start Time Stop Time Status Last Admin Dose Admin Acetaminophen (Tylenol) 325 mg PRN Q6HRS PRN 12/06/16 19:00 Albuterol Sulfate (Ventolin Neb Soln) 2.5 mg PRN Q4HRS PRN 12/06/16 19:00 Albuterol/ Ipratropium (Duoneb) 3 ml RTQID 12/07/16 12:00 Dopamine HCl/ Dextrose 250 ml @ 16.414 mls/ hr 1X ONCE 12/06/16 17:15 12/07/16 08:28 DC 12/06/16 17:41 16.414 MLS/HR Etomidate (Amidate) 20 mg 1X ONCE 12/06/16 17:15 12/06/16 17:17 DC 12/06/16 17:19 20 MG Hydralazine HCl (Apresoline) 10 mg PRN Q4HRS PRN 12/06/16 19:00 Hydrocortisone Sodium Succinate (Solu-CORTEF) 100 mg Q8HRS 12/06/16 18:30 12/07/16 05:16 100 MG Levofloxacin/ Dextrose 150 ml @ 100 mls/hr 1X ONCE 12/06/16 17:00 12/06/16 18:29 DC 12/06/16 20:04 100 MLS/HR Meropenem 500 mg/ Sodium Chloride 50 ml @ 100 mls/hr Q8HRS 12/06/16 18:00 12/07/16 05:08 100 MLS/HR Midazolam HCl 100 ml @ 0 mls/hr CONT PRN 12/07/16 10:15 UNV Midazolam HCl (Versed) 5 mg PRN Q10MIN PRN 12/06/16 17:45 Norepinephrine Bitartrate 250 ml @ 1.875 mls/ hr CONT PRN 12/06/16 19:00 12/06/16 19:55 7.5 MLS/HR Norepinephrine Bitartrate 16 mg/ Sodium Chloride 266 ml @ 0 mls/hr CONT PRN 12/06/16 19:00 UNV Ondansetron HCl (Zofran) 4 mg PRN Q8HRS PRN 12/06/16 19:00 Pantoprazole Sodium (Protonix Vial) 40 mg DAILYAC 12/06/16 19:30 12/07/16 07:48 40 MG Pneumococcal Polyvalent Vaccine (Do NOT chart on this placeholder) 1 each PRN DAILY PRN 12/07/16 09:30 Pneumococcal Polyvalent Vaccine (Pneumovax 23) 0.5 ml ONCE ONCE 12/08/16 09:00 12/08/16 09:01 Sodium Chloride 1,000 ml @ 125 mls/hr Q8H 12/06/16 19:15 12/07/16 05:08 125 MLS/HR Succinylcholine Chloride (Anectine) 100 mg 1X ONCE 12/06/16 17:15 12/06/16 17:17 DC 12/06/16 17:20 100 MG Vancomycin HCl 1 each 1X ONCE 12/07/16 16:30 12/07/16 16:31 Vancomycin HCl (Vanco Per Pharmacy) 1 each PRN DAILY PRN 12/06/16 17:00 12/06/16 17:29 1 EACH Vancomycin HCl 1.25 gm/Sodium Chloride 250 ml @ 167 mls/hr Q24H 12/07/16 17:00 Vancomycin HCl 2 gm/Sodium Chloride 500 ml @ 250 mls/hr 1X ONCE 12/06/16 17:00 12/06/16 18:59 DC 12/06/16 17:11 250 MLS/HR Allergies Allergies Allergies Coded Allergies Type Severity Reaction Last Updated Verified I S O L A T I O N *CONTACT* Allergy Unknown 11/27/16 Yes Penicillins Adverse Reaction Intermediate NAUSEA AND VOMITING WITH PENICILLIN INJECTIONS/ORAL IS OK 05/12/15 Yes diazepam Adverse Reaction Intermediate NAUSEA AND VOMITING WITH IV DOSES/OK WITH ORAL FORM 05/12/15 Yes ibuprofen Adverse Reaction Intermediate LARGE DOSES CAUSE GI UPSET 05/12/15 Yes ROS Review of System CONSTITUTIONAL: No fever or chills EYES: No recent changes SKIN: No rash or itching CARDIOVASCULAR: No chest pain, syncope, palpitations, or edema RESPIRATORY: No SOB or cough GASTROINTESTINAL: No nausea, vomiting or abdominal pain NEUROLOGICAL: No headaches or weakness ENDOCRINE: No cold or heat intolerance GENITOURINARY: No urgency or frequency of urination MUSCULOSKELETAL: No back pain or joint pain LYMPHATICS: No enlarged lymph nodes PSYCHIATRIC: No anxiety or depression Physical Exam Physical Exam GEN.: No apparent distress. Alert and oriented. HEENT: Head is normocephalic, atraumatic NECK: Supple. LUNGS: Clear to auscultation. HEART: RRR, S1, S2 present. Peripheral pulses intact ABDOMEN: Soft, nontender. Positive bowel sounds. EXTREMITIES: Without any cyanosis. NEUROLOGIC: Normal speech, normal tone PSYCHIATRIC: Normal affect, normal mood. SKIN: No ulcerations Vitals Vitals Vital Signs Date Time Temp Pulse Resp B/P (MAP) Pulse Ox O2 Delivery O2 Flow Rate FiO2 12/07/16 08:57 99 Ventilator 12/07/16 07:00 84 23 122/63 (82) 12/07/16 04:00 2.0 12/07/16 03:00 98.6 98.6 Labs Labs Laboratory Tests Test 12/06/16 16:03 12/06/16 16:06 12/06/16 16:40 12/06/16 19:10 O2 Saturation 94 % (92-99) Arterial Blood pH 7.43 (7.35-7.45) Arterial Blood pCO2 at Patient Temp 30 mmHg (35-46) Arterial Blood pO2 at Patient Temp 75 mmHg (75-108) Arterial Blood HCO3 20 mmol/L (21-28) Arterial Blood Base Excess -4 mmol/L (-3-3) FiO2 28 White Blood Count 1.7 x10^3/uL (4.0-11.0) Red Blood Count 2.60 x10^6/uL (3.50-5.40) Hemoglobin 7.8 g/dL (12.0-15.5) Hematocrit 23.1 % (36.0-47.0) Mean Corpuscular Volume 89 fL (79-100) Mean Corpuscular Hemoglobin 30 pg (25-35) Mean Corpuscular Hemoglobin Concent 34 g/dL (31-37) Red Cell Distribution Width 14.5 % (11.5-14.5) Platelet Count 27 x10^3/uL (140-400) Neutrophils (%) (Auto) 81 % (31-73) Lymphocytes (%) (Auto) 10 % (24-48) Monocytes (%) (Auto) 7 % (0-9) Eosinophils (%) (Auto) 1 % (0-3) Basophils (%) (Auto) 1 % (0-3) Neutrophils # (Auto) 1.4 x10^3uL (1.8-7.7) Lymphocytes # (Auto) 0.2 x10^3/uL (1.0-4.8) Monocytes # (Auto) 0.1 x10^3/uL (0.0-1.1) Eosinophils # (Auto) 0.0 x10^3/uL (0.0-0.7) Basophils # (Auto) 0.0 x10^3/uL (0.0-0.2) Segmented Neutrophils % 68 % (35-66) Band Neutrophils % 30 % (0-9) Lymphocytes % 2 % (24-48) Toxic Granulation Mod Toxic Vacuolation Mod Dohle Bodies Present Platelet Estimate Decreased (ADEQUATE) Sodium Level 126 mmol/L (136-145) Potassium Level 3.7 mmol/L (3.5-5.1) Chloride Level 94 mmol/L (98-107) Carbon Dioxide Level 22 mmol/L (21-32) Anion Gap 10 (6-14) Blood Urea Nitrogen 61 mg/dL (7-20) Creatinine 1.6 mg/dL (0.6-1.0) Estimated GFR (Cockcroft-Gault) 40.5 BUN/Creatinine Ratio 38 (6-20) Glucose Level 94 mg/dL (70-99) Calcium Level 8.0 mg/dL (8.5-10.1) Total Bilirubin 1.1 mg/dL (0.2-1.0) Aspartate Amino Transf (AST/SGOT) 85 U/L (15-37) Alanine Aminotransferase (ALT/SGPT) 51 U/L (14-59) Alkaline Phosphatase 64 U/L (46-116) Ammonia 13 mcmol/L (11-34) C-Reactive Protein, Quantitative 191.2 mg/L (0-3.3) DG-Iaz-Y-Type Natriuretic Peptide 5646 pg/mL (0-124) Total Protein 5.4 g/dL (6.4-8.2) Albumin 1.6 g/dL (3.4-5.0) Albumin/Globulin Ratio 0.4 (1.0-1.7) Urine Collection Type Unknown Urine Color [place] Urine Clarity Cloudy Urine pH 5.0 Urine Specific [place] 1.020 Urine Protein 30 mg/dL (NEG-TRACE) Urine Glucose (UA) Negative mg/dL (NEG) Urine Ketones (Stick) Trace mg/dL (NEG) Urine Blood Negative (NEG) Urine Nitrite Negative (NEG) Urine Bilirubin Moderate (NEG) Urine Urobilinogen Dipstick 1.0 mg/dL (0.2 mg/dL) Urine Leukocyte Esterase Small (NEG) Urine RBC 0 /HPF (0-2) Urine WBC 5-10 /HPF (0-4) Urine Amorphous Sediment Present /HPF Urine Bacteria 0 /HPF (0-FEW) Urine Hyaline Casts Many /HPF Urine Granular Casts Occasional /HPF Lactic Acid Level 1.0 mmol/L (0.4-2.0) Test 12/06/16 20:15 12/07/16 01:15 12/07/16 05:00 12/07/16 08:00 O2 Saturation 98 % (92-99) 99 % (92-99) Arterial Blood pH 7.36 (7.35-7.45) 7.39 (7.35-7.45) Arterial Blood pCO2 at Patient Temp 30 mmHg (35-46) 27 mmHg (35-46) Arterial Blood pO2 at Patient Temp 134 mmHg (75-108) 150 mmHg (75-108) Arterial Blood HCO3 17 mmol/L (21-28) 16 mmol/L (21-28) Arterial Blood Base Excess -8 mmol/L (-3-3) -8 mmol/L (-3-3) FiO2 40 40 Urine Opiates Screen Pos (NEG) Urine Methadone Screen Neg (NEG) Urine Barbiturates Neg (NEG) Urine Phencyclidine Screen Neg (NEG) Urine Amphetamine/Methamphetamine Neg (NEG) Urine Benzodiazepines Screen Pos (NEG) Urine Cocaine Screen Neg (NEG) Urine Cannabinoids Screen Neg (NEG) Urine Ethyl Alcohol Neg (NEG) White Blood Count 2.7 x10^3/uL (4.0-11.0) Red Blood Count 2.85 x10^6/uL (3.50-5.40) Hemoglobin 8.6 g/dL (12.0-15.5) Hematocrit 25.6 % (36.0-47.0) Mean Corpuscular Volume 90 fL (79-100) Mean Corpuscular Hemoglobin 30 pg (25-35) Mean Corpuscular Hemoglobin Concent 34 g/dL (31-37) Red Cell Distribution Width 15.2 % (11.5-14.5) Platelet Count 37 x10^3/uL (140-400) Neutrophils (%) (Auto) 79 % (31-73) Lymphocytes (%) (Auto) 9 % (24-48) Monocytes (%) (Auto) 8 % (0-9) Eosinophils (%) (Auto) 3 % (0-3) Basophils (%) (Auto) 1 % (0-3) Neutrophils # (Auto) 2.1 x10^3uL (1.8-7.7) Lymphocytes # (Auto) 0.2 x10^3/uL (1.0-4.8) Monocytes # (Auto) 0.2 x10^3/uL (0.0-1.1) Eosinophils # (Auto) 0.1 x10^3/uL (0.0-0.7) Basophils # (Auto) 0.0 x10^3/uL (0.0-0.2) Sodium Level 132 mmol/L (136-145) Potassium Level 3.7 mmol/L (3.5-5.1) Chloride Level 101 mmol/L (98-107) Carbon Dioxide Level 20 mmol/L (21-32) Anion Gap 11 (6-14) Blood Urea Nitrogen 42 mg/dL (7-20) Creatinine 1.0 mg/dL (0.6-1.0) Estimated GFR (Cockcroft-Gault) 69.7 Glucose Level 118 mg/dL (70-99) Calcium Level 7.6 mg/dL (8.5-10.1) Laboratory Tests Test 12/06/16 16:03 12/06/16 16:06 12/06/16 16:40 12/06/16 19:10 O2 Saturation 94 % (92-99) Arterial Blood pH 7.43 (7.35-7.45) Arterial Blood pCO2 at Patient Temp 30 mmHg (35-46) Arterial Blood pO2 at Patient Temp 75 mmHg (75-108) Arterial Blood HCO3 20 mmol/L (21-28) Arterial Blood Base Excess -4 mmol/L (-3-3) FiO2 28 White Blood Count 1.7 x10^3/uL (4.0-11.0) Red Blood Count 2.60 x10^6/uL (3.50-5.40) Hemoglobin 7.8 g/dL (12.0-15.5) Hematocrit 23.1 % (36.0-47.0) Mean Corpuscular Volume 89 fL (79-100) Mean Corpuscular Hemoglobin 30 pg (25-35) Mean Corpuscular Hemoglobin Concent 34 g/dL (31-37) Red Cell Distribution Width 14.5 % (11.5-14.5) Platelet Count 27 x10^3/uL (140-400) Neutrophils (%) (Auto) 81 % (31-73) Lymphocytes (%) (Auto) 10 % (24-48) Monocytes (%) (Auto) 7 % (0-9) Eosinophils (%) (Auto) 1 % (0-3) Basophils (%) (Auto) 1 % (0-3) Neutrophils # (Auto) 1.4 x10^3uL (1.8-7.7) Lymphocytes # (Auto) 0.2 x10^3/uL (1.0-4.8) Monocytes # (Auto) 0.1 x10^3/uL (0.0-1.1) Eosinophils # (Auto) 0.0 x10^3/uL (0.0-0.7) Basophils # (Auto) 0.0 x10^3/uL (0.0-0.2) Segmented Neutrophils % 68 % (35-66) Band Neutrophils % 30 % (0-9) Lymphocytes % 2 % (24-48) Toxic Granulation Mod Toxic Vacuolation Mod Dohle Bodies Present Platelet Estimate Decreased (ADEQUATE) Sodium Level 126 mmol/L (136-145) Potassium Level 3.7 mmol/L (3.5-5.1) Chloride Level 94 mmol/L (98-107) Carbon Dioxide Level 22 mmol/L (21-32) Anion Gap 10 (6-14) Blood Urea Nitrogen 61 mg/dL (7-20) Creatinine 1.6 mg/dL (0.6-1.0) Estimated GFR (Cockcroft-Gault) 40.5 BUN/Creatinine Ratio 38 (6-20) Glucose Level 94 mg/dL (70-99) Calcium Level 8.0 mg/dL (8.5-10.1) Total Bilirubin 1.1 mg/dL (0.2-1.0) Aspartate Amino Transf (AST/SGOT) 85 U/L (15-37) Alanine Aminotransferase (ALT/SGPT) 51 U/L (14-59) Alkaline Phosphatase 64 U/L (46-116) Ammonia 13 mcmol/L (11-34) C-Reactive Protein, Quantitative 191.2 mg/L (0-3.3) KW-Unk-K-Type Natriuretic Peptide 5646 pg/mL (0-124) Total Protein 5.4 g/dL (6.4-8.2) Albumin 1.6 g/dL (3.4-5.0) Albumin/Globulin Ratio 0.4 (1.0-1.7) Urine Collection Type Unknown Urine Color [place] Urine Clarity Cloudy Urine pH 5.0 Urine Specific [place] 1.020 Urine Protein 30 mg/dL (NEG-TRACE) Urine Glucose (UA) Negative mg/dL (NEG) Urine Ketones (Stick) Trace mg/dL (NEG) Urine Blood Negative (NEG) Urine Nitrite Negative (NEG) Urine Bilirubin Moderate (NEG) Urine Urobilinogen Dipstick 1.0 mg/dL (0.2 mg/dL) Urine Leukocyte Esterase Small (NEG) Urine RBC 0 /HPF (0-2) Urine WBC 5-10 /HPF (0-4) Urine Amorphous Sediment Present /HPF Urine Bacteria 0 /HPF (0-FEW) Urine Hyaline Casts Many /HPF Urine Granular Casts Occasional /HPF Lactic Acid Level 1.0 mmol/L (0.4-2.0) Test 12/06/16 20:15 12/07/16 01:15 12/07/16 05:00 12/07/16 08:00 O2 Saturation 98 % (92-99) 99 % (92-99) Arterial Blood pH 7.36 (7.35-7.45) 7.39 (7.35-7.45) Arterial Blood pCO2 at Patient Temp 30 mmHg (35-46) 27 mmHg (35-46) Arterial Blood pO2 at Patient Temp 134 mmHg (75-108) 150 mmHg (75-108) Arterial Blood HCO3 17 mmol/L (21-28) 16 mmol/L (21-28) Arterial Blood Base Excess -8 mmol/L (-3-3) -8 mmol/L (-3-3) FiO2 40 40 Urine Opiates Screen Pos (NEG) Urine Methadone Screen Neg (NEG) Urine Barbiturates Neg (NEG) Urine Phencyclidine Screen Neg (NEG) Urine Amphetamine/Methamphetamine Neg (NEG) Urine Benzodiazepines Screen Pos (NEG) Urine Cocaine Screen Neg (NEG) Urine Cannabinoids Screen Neg (NEG) Urine Ethyl Alcohol Neg (NEG) White Blood Count 2.7 x10^3/uL (4.0-11.0) Red Blood Count 2.85 x10^6/uL (3.50-5.40) Hemoglobin 8.6 g/dL (12.0-15.5) Hematocrit 25.6 % (36.0-47.0) Mean Corpuscular Volume 90 fL (79-100) Mean Corpuscular Hemoglobin 30 pg (25-35) Mean Corpuscular Hemoglobin Concent 34 g/dL (31-37) Red Cell Distribution Width 15.2 % (11.5-14.5) Platelet Count 37 x10^3/uL (140-400) Neutrophils (%) (Auto) 79 % (31-73) Lymphocytes (%) (Auto) 9 % (24-48) Monocytes (%) (Auto) 8 % (0-9) Eosinophils (%) (Auto) 3 % (0-3) Basophils (%) (Auto) 1 % (0-3) Neutrophils # (Auto) 2.1 x10^3uL (1.8-7.7) Lymphocytes # (Auto) 0.2 x10^3/uL (1.0-4.8) Monocytes # (Auto) 0.2 x10^3/uL (0.0-1.1) Eosinophils # (Auto) 0.1 x10^3/uL (0.0-0.7) Basophils # (Auto) 0.0 x10^3/uL (0.0-0.2) Sodium Level 132 mmol/L (136-145) Potassium Level 3.7 mmol/L (3.5-5.1) Chloride Level 101 mmol/L (98-107) Carbon Dioxide Level 20 mmol/L (21-32) Anion Gap 11 (6-14) Blood Urea Nitrogen 42 mg/dL (7-20) Creatinine 1.0 mg/dL (0.6-1.0) Estimated GFR (Cockcroft-Gault) 69.7 Glucose Level 118 mg/dL (70-99) Calcium Level 7.6 mg/dL (8.5-10.1) VTE Prophylaxis Ordered VTE Prophylaxis Devices: Yes VTE Pharmacological Prophylaxi: Contraindicated REDD CAN MD Dec 07, 2016 10:06
[2016-12-07] MEDS ORDERED: MIDAZOLAM PREMIX 100 ML IV PRN (10:15)
--- NOTE | 2016-12-07 10:30 | PDOC ---
Infectious Disease Note Vital Sign Vital Signs Vital Signs Date Time Temp Pulse Resp B/P (MAP) Pulse Ox O2 Delivery O2 Flow Rate FiO2 12/07/16 08:57 99 Ventilator 12/07/16 07:00 84 23 122/63 (82) 12/07/16 04:00 2.0 12/07/16 03:00 98.6 98.6 Labs Lab Laboratory Tests Test 12/06/16 16:03 12/06/16 16:06 12/06/16 16:40 12/06/16 19:10 O2 Saturation 94 % (92-99) Arterial Blood pH 7.43 (7.35-7.45) Arterial Blood pCO2 at Patient Temp 30 mmHg (35-46) Arterial Blood pO2 at Patient Temp 75 mmHg (75-108) Arterial Blood HCO3 20 mmol/L (21-28) Arterial Blood Base Excess -4 mmol/L (-3-3) FiO2 28 White Blood Count 1.7 x10^3/uL (4.0-11.0) Red Blood Count 2.60 x10^6/uL (3.50-5.40) Hemoglobin 7.8 g/dL (12.0-15.5) Hematocrit 23.1 % (36.0-47.0) Mean Corpuscular Volume 89 fL (79-100) Mean Corpuscular Hemoglobin 30 pg (25-35) Mean Corpuscular Hemoglobin Concent 34 g/dL (31-37) Red Cell Distribution Width 14.5 % (11.5-14.5) Platelet Count 27 x10^3/uL (140-400) Neutrophils (%) (Auto) 81 % (31-73) Lymphocytes (%) (Auto) 10 % (24-48) Monocytes (%) (Auto) 7 % (0-9) Eosinophils (%) (Auto) 1 % (0-3) Basophils (%) (Auto) 1 % (0-3) Neutrophils # (Auto) 1.4 x10^3uL (1.8-7.7) Lymphocytes # (Auto) 0.2 x10^3/uL (1.0-4.8) Monocytes # (Auto) 0.1 x10^3/uL (0.0-1.1) Eosinophils # (Auto) 0.0 x10^3/uL (0.0-0.7) Basophils # (Auto) 0.0 x10^3/uL (0.0-0.2) Segmented Neutrophils % 68 % (35-66) Band Neutrophils % 30 % (0-9) Lymphocytes % 2 % (24-48) Toxic Granulation Mod Toxic Vacuolation Mod Dohle Bodies Present Platelet Estimate Decreased (ADEQUATE) Sodium Level 126 mmol/L (136-145) Potassium Level 3.7 mmol/L (3.5-5.1) Chloride Level 94 mmol/L (98-107) Carbon Dioxide Level 22 mmol/L (21-32) Anion Gap 10 (6-14) Blood Urea Nitrogen 61 mg/dL (7-20) Creatinine 1.6 mg/dL (0.6-1.0) Estimated GFR (Cockcroft-Gault) 40.5 BUN/Creatinine Ratio 38 (6-20) Glucose Level 94 mg/dL (70-99) Calcium Level 8.0 mg/dL (8.5-10.1) Total Bilirubin 1.1 mg/dL (0.2-1.0) Aspartate Amino Transf (AST/SGOT) 85 U/L (15-37) Alanine Aminotransferase (ALT/SGPT) 51 U/L (14-59) Alkaline Phosphatase 64 U/L (46-116) Ammonia 13 mcmol/L (11-34) C-Reactive Protein, Quantitative 191.2 mg/L (0-3.3) PV-Hwn-P-Type Natriuretic Peptide 5646 pg/mL (0-124) Total Protein 5.4 g/dL (6.4-8.2) Albumin 1.6 g/dL (3.4-5.0) Albumin/Globulin Ratio 0.4 (1.0-1.7) Urine Collection Type Unknown Urine Color [place] Urine Clarity Cloudy Urine pH 5.0 Urine Specific [place] 1.020 Urine Protein 30 mg/dL (NEG-TRACE) Urine Glucose (UA) Negative mg/dL (NEG) Urine Ketones (Stick) Trace mg/dL (NEG) Urine Blood Negative (NEG) Urine Nitrite Negative (NEG) Urine Bilirubin Moderate (NEG) Urine Urobilinogen Dipstick 1.0 mg/dL (0.2 mg/dL) Urine Leukocyte Esterase Small (NEG) Urine RBC 0 /HPF (0-2) Urine WBC 5-10 /HPF (0-4) Urine Amorphous Sediment Present /HPF Urine Bacteria 0 /HPF (0-FEW) Urine Hyaline Casts Many /HPF Urine Granular Casts Occasional /HPF Lactic Acid Level 1.0 mmol/L (0.4-2.0) Test 12/06/16 20:15 12/07/16 01:15 12/07/16 05:00 12/07/16 08:00 O2 Saturation 98 % (92-99) 99 % (92-99) Arterial Blood pH 7.36 (7.35-7.45) 7.39 (7.35-7.45) Arterial Blood pCO2 at Patient Temp 30 mmHg (35-46) 27 mmHg (35-46) Arterial Blood pO2 at Patient Temp 134 mmHg (75-108) 150 mmHg (75-108) Arterial Blood HCO3 17 mmol/L (21-28) 16 mmol/L (21-28) Arterial Blood Base Excess -8 mmol/L (-3-3) -8 mmol/L (-3-3) FiO2 40 40 Urine Opiates Screen Pos (NEG) Urine Methadone Screen Neg (NEG) Urine Barbiturates Neg (NEG) Urine Phencyclidine Screen Neg (NEG) Urine Amphetamine/Methamphetamine Neg (NEG) Urine Benzodiazepines Screen Pos (NEG) Urine Cocaine Screen Neg (NEG) Urine Cannabinoids Screen Neg (NEG) Urine Ethyl Alcohol Neg (NEG) White Blood Count 2.7 x10^3/uL (4.0-11.0) Red Blood Count 2.85 x10^6/uL (3.50-5.40) Hemoglobin 8.6 g/dL (12.0-15.5) Hematocrit 25.6 % (36.0-47.0) Mean Corpuscular Volume 90 fL (79-100) Mean Corpuscular Hemoglobin 30 pg (25-35) Mean Corpuscular Hemoglobin Concent 34 g/dL (31-37) Red Cell Distribution Width 15.2 % (11.5-14.5) Platelet Count 37 x10^3/uL (140-400) Neutrophils (%) (Auto) 79 % (31-73) Lymphocytes (%) (Auto) 9 % (24-48) Monocytes (%) (Auto) 8 % (0-9) Eosinophils (%) (Auto) 3 % (0-3) Basophils (%) (Auto) 1 % (0-3) Neutrophils # (Auto) 2.1 x10^3uL (1.8-7.7) Lymphocytes # (Auto) 0.2 x10^3/uL (1.0-4.8) Monocytes # (Auto) 0.2 x10^3/uL (0.0-1.1) Eosinophils # (Auto) 0.1 x10^3/uL (0.0-0.7) Basophils # (Auto) 0.0 x10^3/uL (0.0-0.2) Sodium Level 132 mmol/L (136-145) Potassium Level 3.7 mmol/L (3.5-5.1) Chloride Level 101 mmol/L (98-107) Carbon Dioxide Level 20 mmol/L (21-32) Anion Gap 11 (6-14) Blood Urea Nitrogen 42 mg/dL (7-20) Creatinine 1.0 mg/dL (0.6-1.0) Estimated GFR (Cockcroft-Gault) 69.7 Glucose Level 118 mg/dL (70-99) Calcium Level 7.6 mg/dL (8.5-10.1) Objective Assessment Sepsis. POA Hypotension Pancytopenia PCN allergy, reaction unknown Acute encephalopathy LEONARDO Acute respiratory failure h/o breast cancer, s/p chemo. Port still in place Lupus on Plaquenil Recent E. coli UTI h/o MRSA nares, 6/ Plan Plan of Care Vanc, meropenem Monitor WBC, Cr and temp Await results of pancultures and C. diff PCR D/w sister Critically ill Thank you [phone]... Attending Co-Sign The patient was seen and interviewed as well as examined at the bedside. The chart was reviewed. The case was discussed. Agree with the plan of care. YOCASTA RODRÍGUEZ APRN Dec 07, 2016 10:30 AMANDA MARC MD Dec 07, 2016 14:14
[2016-12-07] MEDS: IPRATRPIUM/ALBUTEROL 0.5/2.5MG 3 ML NEBU. NEB SCH ×3 (12:00→20:34)
--- NOTE | 2016-12-07 12:11 | EKG ---
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
[2016-12-07 13:21] LABS: NEG OBC FOB NEG; POS OBC FOB POS
--- NOTE | 2016-12-07 16:27 | PDOC ---
PROGRESS NOTES Chief Complaint Chief Complaint cc: hypotension 1. Shock, septic: On Levophed, with IV hydration, on Meropenem and Vancomycin, Ranal dosing. follow blood cx. 2. Pancytopenia: monitor, neutropenic precautions, monitor, consult hematology. 3. Acute respiratory failure on [employer] ventilation: daily CXR, sedation breaks, tube feeding, Protonix and but no DVT prophylaxis. 4. Malnutrition, 5. Lupus, immuno suppressive state. 6. Recently treated urinary tract infection, Escherichia coli. 7. Hyponatremia.: improving. Prognosis: guarded, critical conditions, d/w sister at bedside, all questions answered. cc time 36 min. Vitals Vitals Vital Signs Date Time Temp Pulse Resp B/P (MAP) Pulse Ox O2 Delivery O2 Flow Rate FiO2 12/07/16 14:59 100 Ventilator 12/07/16 14:00 78 22 112/63 (79) 12/07/16 12:00 98.5 98.5 12/07/16 04:00 2.0 Physical Exam General: Other Heart: Normal S1, Normal S2 Lungs: Clear Abdomen: Normal bowel sounds, Soft Extremities: No clubbing Skin: Other Labs LABS Laboratory Tests Test 12/06/16 16:40 12/06/16 19:10 12/06/16 20:15 12/07/16 01:15 Urine Collection Type Unknown Urine Color [place] Urine Clarity Cloudy Urine pH 5.0 Urine Specific [employer] 1.020 Urine Protein 30 mg/dL (NEG-TRACE) Urine Glucose (UA) Negative mg/dL (NEG) Urine Ketones (Stick) Trace mg/dL (NEG) Urine Blood Negative (NEG) Urine Nitrite Negative (NEG) Urine Bilirubin Moderate (NEG) Urine Urobilinogen Dipstick 1.0 mg/dL (0.2 mg/dL) Urine Leukocyte Esterase Small (NEG) Urine RBC 0 /HPF (0-2) Urine WBC 5-10 /HPF (0-4) Urine Amorphous Sediment Present /HPF Urine Bacteria 0 /HPF (0-FEW) Urine Hyaline Casts Many /HPF Urine Granular Casts Occasional /HPF Clostridium difficile Toxin (PCR) Negative (Negative) Lactic Acid Level 1.0 mmol/L (0.4-2.0) O2 Saturation 98 % (92-99) Arterial Blood pH 7.36 (7.35-7.45) Arterial Blood pCO2 at Patient Temp 30 mmHg (35-46) Arterial Blood pO2 at Patient Temp 134 mmHg (75-108) Arterial Blood HCO3 17 mmol/L (21-28) Arterial Blood Base Excess -8 mmol/L (-3-3) FiO2 40 Urine Opiates Screen Pos (NEG) Urine Methadone Screen Neg (NEG) Urine Barbiturates Neg (NEG) Urine Phencyclidine Screen Neg (NEG) Urine Amphetamine/Methamphetamine Neg (NEG) Urine Benzodiazepines Screen Pos (NEG) Urine Cocaine Screen Neg (NEG) Urine Cannabinoids Screen Neg (NEG) Urine Ethyl Alcohol Neg (NEG) Test 12/07/16 04:20 12/07/16 05:00 12/07/16 08:00 Stool Occult Blood Negative (NEG) White Blood Count 2.7 x10^3/uL (4.0-11.0) Red Blood Count 2.85 x10^6/uL (3.50-5.40) Hemoglobin 8.6 g/dL (12.0-15.5) Hematocrit 25.6 % (36.0-47.0) Mean Corpuscular Volume 90 fL (79-100) Mean Corpuscular Hemoglobin 30 pg (25-35) Mean Corpuscular Hemoglobin Concent 34 g/dL (31-37) Red Cell Distribution Width 15.2 % (11.5-14.5) Platelet Count 37 x10^3/uL (140-400) Neutrophils (%) (Auto) 79 % (31-73) Lymphocytes (%) (Auto) 9 % (24-48) Monocytes (%) (Auto) 8 % (0-9) Eosinophils (%) (Auto) 3 % (0-3) Basophils (%) (Auto) 1 % (0-3) Neutrophils # (Auto) 2.1 x10^3uL (1.8-7.7) Lymphocytes # (Auto) 0.2 x10^3/uL (1.0-4.8) Monocytes # (Auto) 0.2 x10^3/uL (0.0-1.1) Eosinophils # (Auto) 0.1 x10^3/uL (0.0-0.7) Basophils # (Auto) 0.0 x10^3/uL (0.0-0.2) Sodium Level 132 mmol/L (136-145) Potassium Level 3.7 mmol/L (3.5-5.1) Chloride Level 101 mmol/L (98-107) Carbon Dioxide Level 20 mmol/L (21-32) Anion Gap 11 (6-14) Blood Urea Nitrogen 42 mg/dL (7-20) Creatinine 1.0 mg/dL (0.6-1.0) Estimated GFR (Cockcroft-Gault) 69.7 Glucose Level 118 mg/dL (70-99) Calcium Level 7.6 mg/dL (8.5-10.1) O2 Saturation 99 % (92-99) Arterial Blood pH 7.39 (7.35-7.45) Arterial Blood pCO2 at Patient Temp 27 mmHg (35-46) Arterial Blood pO2 at Patient Temp 150 mmHg (75-108) Arterial Blood HCO3 16 mmol/L (21-28) Arterial Blood Base Excess -8 mmol/L (-3-3) FiO2 40 Assessment and Plan Assessmemt and Plan Problems Medical Problems: (1) Respiratory failure Status: Acute Problems: Comment Review of Relevant I have reviewed the following items anselmo (where applicable) has been applied. Labs Laboratory Tests Test 12/06/16 16:03 12/06/16 16:06 12/06/16 16:40 12/06/16 19:10 O2 Saturation 94 % (92-99) Arterial Blood pH 7.43 (7.35-7.45) Arterial Blood pCO2 at Patient Temp 30 mmHg (35-46) Arterial Blood pO2 at Patient Temp 75 mmHg (75-108) Arterial Blood HCO3 20 mmol/L (21-28) Arterial Blood Base Excess -4 mmol/L (-3-3) FiO2 28 White Blood Count 1.7 x10^3/uL (4.0-11.0) Red Blood Count 2.60 x10^6/uL (3.50-5.40) Hemoglobin 7.8 g/dL (12.0-15.5) Hematocrit 23.1 % (36.0-47.0) Mean Corpuscular Volume 89 fL (79-100) Mean Corpuscular Hemoglobin 30 pg (25-35) Mean Corpuscular Hemoglobin Concent 34 g/dL (31-37) Red Cell Distribution Width 14.5 % (11.5-14.5) Platelet Count 27 x10^3/uL (140-400) Neutrophils (%) (Auto) 81 % (31-73) Lymphocytes (%) (Auto) 10 % (24-48) Monocytes (%) (Auto) 7 % (0-9) Eosinophils (%) (Auto) 1 % (0-3) Basophils (%) (Auto) 1 % (0-3) Neutrophils # (Auto) 1.4 x10^3uL (1.8-7.7) Lymphocytes # (Auto) 0.2 x10^3/uL (1.0-4.8) Monocytes # (Auto) 0.1 x10^3/uL (0.0-1.1) Eosinophils # (Auto) 0.0 x10^3/uL (0.0-0.7) Basophils # (Auto) 0.0 x10^3/uL (0.0-0.2) Segmented Neutrophils % 68 % (35-66) Band Neutrophils % 30 % (0-9) Lymphocytes % 2 % (24-48) Toxic Granulation Mod Toxic Vacuolation Mod Dohle Bodies Present Platelet Estimate Decreased (ADEQUATE) Sodium Level 126 mmol/L (136-145) Potassium Level 3.7 mmol/L (3.5-5.1) Chloride Level 94 mmol/L (98-107) Carbon Dioxide Level 22 mmol/L (21-32) Anion Gap 10 (6-14) Blood Urea Nitrogen 61 mg/dL (7-20) Creatinine 1.6 mg/dL (0.6-1.0) Estimated GFR (Cockcroft-Gault) 40.5 BUN/Creatinine Ratio 38 (6-20) Glucose Level 94 mg/dL (70-99) Calcium Level 8.0 mg/dL (8.5-10.1) Total Bilirubin 1.1 mg/dL (0.2-1.0) Aspartate Amino Transf (AST/SGOT) 85 U/L (15-37) Alanine Aminotransferase (ALT/SGPT) 51 U/L (14-59) Alkaline Phosphatase 64 U/L (46-116) Ammonia 13 mcmol/L (11-34) C-Reactive Protein, Quantitative 191.2 mg/L (0-3.3) YC-Xkq-V-Type Natriuretic Peptide 5646 pg/mL (0-124) Total Protein 5.4 g/dL (6.4-8.2) Albumin 1.6 g/dL (3.4-5.0) Albumin/Globulin Ratio 0.4 (1.0-1.7) Urine Collection Type Unknown Urine Color [place] Urine Clarity Cloudy Urine pH 5.0 Urine Specific [employer] 1.020 Urine Protein 30 mg/dL (NEG-TRACE) Urine Glucose (UA) Negative mg/dL (NEG) Urine Ketones (Stick) Trace mg/dL (NEG) Urine Blood Negative (NEG) Urine Nitrite Negative (NEG) Urine Bilirubin Moderate (NEG) Urine Urobilinogen Dipstick 1.0 mg/dL (0.2 mg/dL) Urine Leukocyte Esterase Small (NEG) Urine RBC 0 /HPF (0-2) Urine WBC 5-10 /HPF (0-4) Urine Amorphous Sediment Present /HPF Urine Bacteria 0 /HPF (0-FEW) Urine Hyaline Casts Many /HPF Urine Granular Casts Occasional /HPF Clostridium difficile Toxin (PCR) Negative (Negative) Lactic Acid Level 1.0 mmol/L (0.4-2.0) Test 12/06/16 20:15 12/07/16 01:15 12/07/16 04:20 12/07/16 05:00 O2 Saturation 98 % (92-99) Arterial Blood pH 7.36 (7.35-7.45) Arterial Blood pCO2 at Patient Temp 30 mmHg (35-46) Arterial Blood pO2 at Patient Temp 134 mmHg (75-108) Arterial Blood HCO3 17 mmol/L (21-28) Arterial Blood Base Excess -8 mmol/L (-3-3) FiO2 40 Urine Opiates Screen Pos (NEG) Urine Methadone Screen Neg (NEG) Urine Barbiturates Neg (NEG) Urine Phencyclidine Screen Neg (NEG) Urine Amphetamine/Methamphetamine Neg (NEG) Urine Benzodiazepines Screen Pos (NEG) Urine Cocaine Screen Neg (NEG) Urine Cannabinoids Screen Neg (NEG) Urine Ethyl Alcohol Neg (NEG) Stool Occult Blood Negative (NEG) White Blood Count 2.7 x10^3/uL (4.0-11.0) Red Blood Count 2.85 x10^6/uL (3.50-5.40) Hemoglobin 8.6 g/dL (12.0-15.5) Hematocrit 25.6 % (36.0-47.0) Mean Corpuscular Volume 90 fL (79-100) Mean Corpuscular Hemoglobin 30 pg (25-35) Mean Corpuscular Hemoglobin Concent 34 g/dL (31-37) Red Cell Distribution Width 15.2 % (11.5-14.5) Platelet Count 37 x10^3/uL (140-400) Neutrophils (%) (Auto) 79 % (31-73) Lymphocytes (%) (Auto) 9 % (24-48) Monocytes (%) (Auto) 8 % (0-9) Eosinophils (%) (Auto) 3 % (0-3) Basophils (%) (Auto) 1 % (0-3) Neutrophils # (Auto) 2.1 x10^3uL (1.8-7.7) Lymphocytes # (Auto) 0.2 x10^3/uL (1.0-4.8) Monocytes # (Auto) 0.2 x10^3/uL (0.0-1.1) Eosinophils # (Auto) 0.1 x10^3/uL (0.0-0.7) Basophils # (Auto) 0.0 x10^3/uL (0.0-0.2) Sodium Level 132 mmol/L (136-145) Potassium Level 3.7 mmol/L (3.5-5.1) Chloride Level 101 mmol/L (98-107) Carbon Dioxide Level 20 mmol/L (21-32) Anion Gap 11 (6-14) Blood Urea Nitrogen 42 mg/dL (7-20) Creatinine 1.0 mg/dL (0.6-1.0) Estimated GFR (Cockcroft-Gault) 69.7 Glucose Level 118 mg/dL (70-99) Calcium Level 7.6 mg/dL (8.5-10.1) Test 12/07/16 08:00 O2 Saturation 99 % (92-99) Arterial Blood pH 7.39 (7.35-7.45) Arterial Blood pCO2 at Patient Temp 27 mmHg (35-46) Arterial Blood pO2 at Patient Temp 150 mmHg (75-108) Arterial Blood HCO3 16 mmol/L (21-28) Arterial Blood Base Excess -8 mmol/L (-3-3) FiO2 40 Laboratory Tests Test 12/06/16 16:40 12/06/16 19:10 12/06/16 20:15 12/07/16 01:15 Urine Collection Type Unknown Urine Color [place] Urine Clarity Cloudy Urine pH 5.0 Urine Specific [employer] 1.020 Urine Protein 30 mg/dL (NEG-TRACE) Urine Glucose (UA) Negative mg/dL (NEG) Urine Ketones (Stick) Trace mg/dL (NEG) Urine Blood Negative (NEG) Urine Nitrite Negative (NEG) Urine Bilirubin Moderate (NEG) Urine Urobilinogen Dipstick 1.0 mg/dL (0.2 mg/dL) Urine Leukocyte Esterase Small (NEG) Urine RBC 0 /HPF (0-2) Urine WBC 5-10 /HPF (0-4) Urine Amorphous Sediment Present /HPF Urine Bacteria 0 /HPF (0-FEW) Urine Hyaline Casts Many /HPF Urine Granular Casts Occasional /HPF Clostridium difficile Toxin (PCR) Negative (Negative) Lactic Acid Level 1.0 mmol/L (0.4-2.0) O2 Saturation 98 % (92-99) Arterial Blood pH 7.36 (7.35-7.45) Arterial Blood pCO2 at Patient Temp 30 mmHg (35-46) Arterial Blood pO2 at Patient Temp 134 mmHg (75-108) Arterial Blood HCO3 17 mmol/L (21-28) Arterial Blood Base Excess -8 mmol/L (-3-3) FiO2 40 Urine Opiates Screen Pos (NEG) Urine Methadone Screen Neg (NEG) Urine Barbiturates Neg (NEG) Urine Phencyclidine Screen Neg (NEG) Urine Amphetamine/Methamphetamine Neg (NEG) Urine Benzodiazepines Screen Pos (NEG) Urine Cocaine Screen Neg (NEG) Urine Cannabinoids Screen Neg (NEG) Urine Ethyl Alcohol Neg (NEG) Test 12/07/16 04:20 12/07/16 05:00 12/07/16 08:00 Stool Occult Blood Negative (NEG) White Blood Count 2.7 x10^3/uL (4.0-11.0) Red Blood Count 2.85 x10^6/uL (3.50-5.40) Hemoglobin 8.6 g/dL (12.0-15.5) Hematocrit 25.6 % (36.0-47.0) Mean Corpuscular Volume 90 fL (79-100) Mean Corpuscular Hemoglobin 30 pg (25-35) Mean Corpuscular Hemoglobin Concent 34 g/dL (31-37) Red Cell Distribution Width 15.2 % (11.5-14.5) Platelet Count 37 x10^3/uL (140-400) Neutrophils (%) (Auto) 79 % (31-73) Lymphocytes (%) (Auto) 9 % (24-48) Monocytes (%) (Auto) 8 % (0-9) Eosinophils (%) (Auto) 3 % (0-3) Basophils (%) (Auto) 1 % (0-3) Neutrophils # (Auto) 2.1 x10^3uL (1.8-7.7) Lymphocytes # (Auto) 0.2 x10^3/uL (1.0-4.8) Monocytes # (Auto) 0.2 x10^3/uL (0.0-1.1) Eosinophils # (Auto) 0.1 x10^3/uL (0.0-0.7) Basophils # (Auto) 0.0 x10^3/uL (0.0-0.2) Sodium Level 132 mmol/L (136-145) Potassium Level 3.7 mmol/L (3.5-5.1) Chloride Level 101 mmol/L (98-107) Carbon Dioxide Level 20 mmol/L (21-32) Anion Gap 11 (6-14) Blood Urea Nitrogen 42 mg/dL (7-20) Creatinine 1.0 mg/dL (0.6-1.0) Estimated GFR (Cockcroft-Gault) 69.7 Glucose Level 118 mg/dL (70-99) Calcium Level 7.6 mg/dL (8.5-10.1) O2 Saturation 99 % (92-99) Arterial Blood pH 7.39 (7.35-7.45) Arterial Blood pCO2 at Patient Temp 27 mmHg (35-46) Arterial Blood pO2 at Patient Temp 150 mmHg (75-108) Arterial Blood HCO3 16 mmol/L (21-28) Arterial Blood Base Excess -8 mmol/L (-3-3) FiO2 40 Microbiology 12/06/16 Blood Culture - Final, Complete Medications Current Medications Sodium Chloride 1,000 ml @ 1,000 mls/hr 1X ONCE IV Last administered on 16:18; Start 12/06/16 at 16:15; Stop 12/06/16 at 17:14; Status DC Vancomycin HCl (Vanco Per Pharmacy) 1 each PRN DAILY PRN MC SEE COMMENTS Last administered on 12/06/16 17:29; Start 12/06/16 at 17:00 Levofloxacin/ Dextrose 150 ml @ 100 mls/hr 1X ONCE IV Last administered on 20:04; Start 12/06/16 at 17:00; Stop 12/06/16 at 18:29; Status DC Vancomycin HCl 2 gm/Sodium Chloride 500 ml @ 250 mls/hr 1X ONCE IV Last administered on 12/06/16 17:11; Start 12/06/16 at 17:00; Stop 12/06/16 at 18:59 ; Status DC Sodium Chloride 1,000 ml @ 1,000 mls/hr 1X ONCE IV Last administered on 17:09; Start 12/06/16 at 17:00; Stop 12/06/16 at 17:59; Status DC Meropenem 500 mg/ Sodium Chloride 50 ml @ 100 mls/hr Q8HRS IV Last administered on 12/07/16 14:36; Start 12/06/16 at 18:00 Dopamine HCl/ Dextrose 250 ml @ 16.414 mls/ hr 1X ONCE IV Last administered on 12/06/16 17:41; Start 12/06/16 at 17:15; Stop 12/07/16 at 08:28; Status DC Etomidate (Amidate) 20 mg 1X ONCE IV Last administered on 12/06/16 17:19; Start 12/06/16 at 17:15; Stop 12/06/16 at 17:17; Status DC Succinylcholine Chloride (Anectine) 100 mg 1X ONCE IV Last administered on 17:20; Start 12/06/16 at 17:15; Stop 12/06/16 at 17:17; Status DC Vancomycin HCl 1.25 gm/Sodium Chloride 250 ml @ 167 mls/hr Q24H IV ; Start at 17:00 Vancomycin HCl 1 each 1X ONCE MC ; Start 12/07/16 at 16:30; Stop 12/07/16 at 16 :31 Midazolam HCl 100 ml @ As Directed STK-MED ONCE IV ; Start 12/06/16 at 17:36; Stop 12/06/16 at 17:37; Status DC Midazolam HCl (Versed) 5 mg STK-MED ONCE .ROUTE ; Start 12/06/16 at 17:37; Stop 12/06/16 at 17:38; Status DC Midazolam HCl (Versed) 5 mg PRN Q10MIN PRN IV SEDATION; Start 12/06/16 at 17:45 Hydrocortisone Sodium Succinate (Solu-CORTEF) 100 mg Q8HRS IV Last administered on 12/07/16 14:36; Start 12/06/16 at 18:30 Norepinephrine Bitartrate 16 mg/ Sodium Chloride 266 ml @ 0 mls/hr CONT PRN IV SEE I/O RECORD; Start 12/06/16 at 19:00; Status UNV Pantoprazole Sodium (Protonix Vial) 40 mg DAILYAC IVP Last administered on 12/07 07:48; Start 12/06/16 at 19:30 Acetaminophen (Tylenol) 325 mg PRN Q6HRS PRN PO MILD PAIN / TEMP; Start at 19:00 Hydralazine HCl (Apresoline) 10 mg PRN Q4HRS PRN IVP ELEVATED BP, SEE COMMENTS ; Start 12/06/16 at 19:00 Ondansetron HCl (Zofran) 4 mg PRN Q8HRS PRN IV NAUSEA/VOMITING; Start 12/06/16 at 19:00 Albuterol Sulfate (Ventolin Neb Soln) 2.5 mg PRN Q4HRS PRN NEB SHORTNESS OF BREATH; Start 12/06/16 at 19:00 Norepinephrine Bitartrate 250 ml @ 1.875 mls/ hr CONT PRN IV SEE I/O RECORD Last administered on 12/06/16 19:55; Start 12/06/16 at 19:00 Sodium Chloride 1,000 ml @ 1,000 mls/hr 1X ONCE IV Last administered on 19:56; Start 12/06/16 at 19:15; Stop 12/06/16 at 20:14; Status DC Sodium Chloride 1,000 ml @ 125 mls/hr Q8H IV Last administered on 12/07/16 12 :17; Start 12/06/16 at 19:15 Pneumococcal Polyvalent Vaccine (Do NOT chart on this placeholder) 1 each PRN DAILY PRN MC PT UNABLE TO RESPOND; Start 12/07/16 at 09:30 Pneumococcal Polyvalent Vaccine (Pneumovax 23) 0.5 ml ONCE ONCE VAX IM ; Start 12/08/16 at 09:00; Stop 12/08/16 at 09:01 Albuterol/ Ipratropium (Duoneb) 3 ml RTQID NEB ; Start 12/07/16 at 12:00 Midazolam HCl 100 ml @ 0 mls/hr CONT PRN IV SEE I/O RECORD Last administered on 12/07/16t 10:29; Start 12/07/16 at 10:15 Fentanyl Citrate (Fentanyl 2ml Vial) 25 mcg PRN Q1HR PRN IV PAIN; Start at 10:45 Active Scripts Active Oxycodone Hcl 5 Mg Tablet 5 Mg PO PRN Q6HRS PRN Reported Albuterol Sulfate Neb Soln (Albuterol Sulfate) 1.25 Mg/3 Ml Vial.neb 1 Vial NEB Q6HRS Ranitidine Hcl 150 Mg Capsule 75 Mg PO DAILY Ondansetron Hcl 8 Mg Tablet 8 Mg PO DAILY Azithromycin Tablet (Azithromycin) 250 Mg Tablet 250 Mg PO DAILY Bupropion Hcl 100 Mg Tablet 100 Mg PO BID Nasal Allergy [place] (Cromolyn Sodium) 13 Ml [place].pump 13 Ml NS DAILY Gabapentin 300 Mg Capsule 300 Mg PO BID Hydroxyzine Hcl 25 Mg Tablet 25 Mg PO DAILY Nystatin 15 Gm Cream..g. 15 Gm TP BID Duloxetine Hcl 60 Mg Capsule.dr 60 Mg PO DAILY Clonidine Hcl 0.1 Mg Tablet 0.1 Mg PO DAILY Lisinopril 20 Mg Tablet 20 Mg PO DAILY Famciclovir 125 Mg Tablet 125 Mg PO DAILY Ropinirole Hcl 0.25 Mg Tablet 0.25 Mg PO DAILY Hydroxychloroquine Sulfate 200 Mg Tablet 200 Mg PO DAILY Lyrica (Pregabalin) 150 Mg Capsule 150 Mg PO DAILY Furosemide 20 Mg Tablet 20 Mg PO DAILY Alprazolam 0.25 Mg Tablet 0.25 Mg PO Oxycodone Hcl 5 Mg Tablet 5 Mg PO PRN Q4HRS PRN Ibuprofen 400 Mg Tablet 400 Mg PO PRN DAILY PRN Multivitamins (Multivitamin) 1 Each Tablet 1 Each PO DAILY Oxycodone-Acetaminophen 10-325 (Oxycodone Hcl/Acetaminophen) 1 Each Tablet 1 Each PO PRN Q4-6HRS PRN Plaquenil (Hydroxychloroquine Sulfate) 200 Mg Tablet 200 Mg PO BID Vitals/I & O Vital Sign - Last 24 Hours 12/06/16 12/06/16 12/06/16 12/06/16 16:36 16:39 17:03 17:04 Pulse 94 94 94 Resp 27 26 27 B/P (MAP) 79/38 (52) 85/48 (60) 68/37 (47) Pulse Ox 93 97 89 O2 Delivery Nasal Cannula Nasal Cannula Nasal Cannula Nasal Cannula O2 Flow Rate 2.0 2.0 2.0 2.0 12/06/16 12/06/16 12/06/16 12/06/16 17:12 17:17 17:22 17:27 Pulse 92 94 102 104 Resp 28 31 24 16 B/P (MAP) 89/54 (66) 78/51 (60) 151/86 (107) 137/73 (94) Pulse Ox 94 98 100 100 O2 Delivery Nasal Cannula Nasal Cannula Nasal Cannula Ventilator O2 Flow Rate 2.0 2.0 2.0 12/06/16 12/06/16 12/06/16 12/06/16 17:30 17:32 17:37 17:42 Pulse 108 108 106 Resp 16 37 29 B/P (MAP) 154/87 (109) 145/72 (96) 126/64 (84) Pulse Ox 97 95 95 96 O2 Delivery Ventilator Ventilator Ventilator Ventilator 12/06/16 12/06/16 12/06/16 12/06/16 17:47 17:52 17:57 18:02 Pulse 102 100 100 96 Resp 31 29 34 31 B/P (MAP) 104/57 (73) 114/55 (74) 110/54 (72) 97/67 (77) Pulse Ox 98 94 100 98 O2 Delivery Ventilator Ventilator Ventilator Ventilator 12/06/16 12/06/16 12/06/16 12/06/16 18:07 18:12 18:17 19:00 Temp 98.9 98.9 Pulse 96 94 84 86 Resp 30 24 45 16 B/P (MAP) 92/44 (60) 96/38 (57) 75/41 (52) 80/32 (48) Pulse Ox 96 100 100 97 O2 Delivery Ventilator Ventilator Ventilator Ventilator 12/06/16 12/06/16 12/06/16 12/06/16 20:00 20:00 20:12 20:20 Pulse 88 Resp 19 B/P (MAP) 79/34 (49) 76/34 (48) Pulse Ox 96 97 O2 Delivery Mechanical Ventilator Ventilator Ventilator O2 Flow Rate 2.0 6/12/06/16 12/06/16 12/06/16 20:30 21:00 21:59 22:00 Pulse 88 83 Resp 19 16 B/P (MAP) 75/39 (51) 87/44 (58) 86/50 (62) 93/49 (64) Pulse Ox 97 97 O2 Delivery Ventilator Ventilator 12/06/16 12/06/16 12/06/16 12/06/16 22:17 22:45 23:00 23:17 Temp 98.7 98.7 Pulse 83 Resp 19 B/P (MAP) 98/54 (69) 92/56 (68) 103/57 (72) Pulse Ox 98 O2 Delivery Ventilator Mechanical Ventilator 12/06/16 12/06/16 12/07/16 12/07/16 23:18 23:59 00:00 01:00 Pulse 94 92 Resp 16 16 B/P (MAP) 128/79 (95) 135/77 (96) Pulse Ox 98 99 100 O2 Delivery Ventilator Mechanical Ventilator Ventilator Ventilator 12/07/16 12/07/16 12/07/16 12/07/16 02:00 02:30 03:00 03:43 Temp 98.6 98.6 Pulse 99 92 Resp 16 16 B/P (MAP) 135/67 (89) 138/75 (96) Pulse Ox 100 98 99 98 O2 Delivery Ventilator Ventilator Ventilator Ventilator 12/07/16 12/07/16 12/07/16 12/07/16 04:00 04:00 05:00 06:07 Pulse 88 85 86 Resp 25 23 24 B/P (MAP) 133/74 (93) 130/74 (92) 122/75 (91) Pulse Ox 99 100 100 O2 Delivery Ventilator Mechanical Ventilator Ventilator Ventilator O2 Flow Rate 2.0 12/07/16 12/07/16 12/07/16 12/07/16 06:18 07:00 07:38 08:00 Pulse 84 Resp 23 B/P (MAP) 122/63 (82) Pulse Ox 100 100 100 O2 Delivery Ventilator Ventilator Ventilator Mechanical Ventilator 12/07/16 12/07/16 12/07/16 12/07/16 08:00 08:57 09:00 10:00 Temp 99.1 99.1 Pulse 84 80 80 Resp 24 23 25 B/P (MAP) 117/58 (77) 120/62 (81) 108/62 (77) Pulse Ox 99 99 99 99 O2 Delivery Ventilator Ventilator Ventilator Ventilator 12/07/16 12/07/16 12/07/16 12/07/16 10:57 11:00 12:00 12:00 Temp 98.5 98.5 Pulse 82 78 Resp 22 25 B/P (MAP) 110/60 (77) 112/64 (80) Pulse Ox 99 99 99 O2 Delivery Ventilator Ventilator Ventilator Mechanical Ventilator 12/07/16 12/07/16 12/07/16 12/07/16 12:43 13:00 14:00 14:59 Pulse 82 78 Resp 21 22 B/P (MAP) 113/59 (77) 112/63 (79) Pulse Ox 99 99 99 100 O2 Delivery Ventilator Ventilator Ventilator Ventilator Intake and Output 12/06/16 12/06/16 12/07/16 15:00 23:00 07:00 Intake Total 1200 ml 3127 ml Output Total 725 ml 1165 ml Balance 475 ml 1962 ml REDD CAN MD Dec 07, 2016 16:27
[2016-12-07] MEDS: VANCOMYCIN PER PHARMACY MC PRN (16:43)
[2016-12-07] MEDS ORDERED: VANCOMYCIN 1.25 GM in IV NORMAL SALINE 250ML 250 ML IV SCH (17:00)
[2016-12-07] MEDS ORDERED: PANTOPRAZOLE IV PUSH 40 MG VIAL. IVP SCH (17:00)
[2016-12-07] MEDS: fentaNYL PF VIAL 100 MCG/2 ML VIAL IV PRN (22:33)
[2016-12-08] VITALS (24 sets, daily range): BP systolic 93–129; BP diastolic 53–83
[2016-12-08] MEDS: IV NORMAL SALINE 1000ML BAG 1,000 ML IV SCH ×3 (03:19→21:55)
[2016-12-08] MEDS: fentaNYL PF VIAL 100 MCG/2 ML VIAL IV PRN (03:20)
[2016-12-08 05:11] LABS: BASO % 0 % (0-3); EOS % 0 % (0-3); HEMATOCRIT 23.1 % (36.0-47.0); HEMOGLOBIN 7.7 g/dL (12.0-15.5); LYMPH # 0.3 x10^3/uL (1.0-4.8); LYMPH % 13 % (24-48); MEAN CORPUSCULAR HEMOGLOBIN 30 pg (25-35); MEAN CORPUSCULAR HGB CONC 34 g/dL (31-37); MEAN CORPUSCULAR VOLUME 90 fL (79-100); MONO % 7 % (0-9); NEUT % 79 % (31-73); PLATELET COUNT 38 x10^3/uL (140-400); RED BLOOD COUNT 2.56 x10^6/uL (3.50-5.40); RED CELL DISTRIBUTION WIDTH 14.6 % (11.5-14.5); WHITE BLOOD COUNT 2.7 x10^3/uL (4.0-11.0)
[2016-12-08] MEDS: MEROPENEM 500 MG in IV NORMAL SALINE 50ML 50 ML IV SCH ×3 (05:21→21:54)
[2016-12-08 05:22] LABS: CALCIUM 8.6 mg/dL (8.5-10.1); CREATININE 0.6 mg/dL (0.6-1.0); GFR 125.6; POTASSIUM 3.6 mmol/L (3.5-5.1)
[2016-12-08] MEDS: HYDROCORTISONE SOD SUCC/PF 100 MG/2 ML VIAL. IV SCH ×3 (05:25→21:55)
--- NOTE | 2016-12-08 05:25 | CONS ---
DATE OF CONSULTATION: 12/06/2016 REFERRING PHYSICIAN: Dr. Miller. REASON FOR CONSULT: Infectious disease process. HISTORY OF PRESENT ILLNESS: This patient is a 55-year-old female with a past medical history of breast cancer status post right mastectomy and chemotherapy as well as lupus, on Plaquenil, who was sent from [facility] rehab with confusion, tachycardia and hypotension. The patient is currently in the intensive care unit, intubated and sedated, unable to provide history of present illness, past medical history, and review of systems. Her sister Kristin is present, but she is unable to provide additional information regarding recent events. On arrival to the ER, she had a white blood cell count of 1700 with segs 68%, bands 30%. Lactic acid was 1.0. Urinalysis was unremarkable for infection. Sheikh cultures have been ordered. She is on a Levophed drip at 5 mcg. She has a rectal tube in place due to diarrhea. C. difficile PCR is pending. ID has been asked to consult for further evaluation. PAST MEDICAL HISTORY: E. coli UTI, breast cancer, status post right mastectomy and chemotherapy. Lupus, on Plaquenil. 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 FAMILY HISTORY: Positive for cancer, hypertension, and obesity. SOCIAL HISTORY: Currently residing in a [facility] facility. History of drug abuse. Alcohol use and tobaccoism. ALLERGIES: PENICILLIN, REACTION UNKNOWN, DIAZEPAM AND IBUPROFEN. PAST SURGICAL HISTORY: Appendectomy, cholecystectomy, right mastectomy, left subclavian Port-A-Cath placement on 05/12/2015, and tonsillectomy. REVIEW OF SYSTEMS: Unobtainable as the patient is intubated and sedated. MEDICATIONS: Vancomycin and meropenem. Other medications are available and have been reviewed on AUG. PHYSICAL EXAMINATION: HEAD female, intubated and sedated. VITAL SIGNS: Temperature is 98.6, blood pressure 122/63, heart rate 84, respiratory rate 23, pulse oximetry is 99% on FiO2 of 40%, and weight is 211 pounds. HEENT: Pupils equally round, reactive. Normal conjunctivae. ETT. LUNGS: Clear to auscultation anteriorly. HEART: Normal S1 and S2. ABDOMEN: Nondistended. Bowel sounds are present and soft. Rectal tube in place. GENITOURINARY: She has a Vaughan in place. EXTREMITIES: No gross edema or cyanosis. SKIN: Without rash. Warm to touch. NEUROLOGIC: Unresponsive/sedated. LINES: Left-sided Port-A-Cath access. No area of redness or swelling noted. LABORATORY DATA: Today's WBC is 2.7, hemoglobin 8.6, and platelet count 37,000. Sodium 132, potassium 3.7, creatinine 1.0 from 1.6 on admission, BUN 42, lactic acid 1.0, and total bilirubin 1.1, AST 85, ALT 51. Ammonia is 13. CRP 191.2. BNP 5646, albumin 1.6. Sheikh cultures pending. MRSA screen on 11/25/2016 positive. C. difficile PCR pending. IMAGING STUDIES: Recent chest x-ray shows increased airspace infiltrates in the left upper lobe and right base; and mild cardiomegaly. IMPRESSION: 1. Sepsis present on admission. 2. Hypotension. 3. Pancytopenia. 4. Penicillin allergy, reaction unknown. 5. Acute encephalopathy. 6. Acute kidney injury. 7. Acute respiratory failure. 8. History of breast cancer, status post chemotherapy. Jvlr-[id number]-Amkgptub remains in place. 9. Lupus, on Plaquenil. 10. History of methicillin-resistant Staphylococcus aureus ____ on 11/25/2016. PLAN: Continue broad spectrum antibiotics. Await results of sheikh cultures and stool for Clostridium difficile. Monitor WBC count, creatinine and temperature. Supportive care. I discussed with the patient's sister. The patient is critically ill. Thank you, Dr. Miller for asking us to participate in this patient's care. Should you have further questions or concerns, please call. AMANDA MARC MD DR: PING/cricket JOB#: [id number] / [id number]
[2016-12-08] MEDS: VANCOMYCIN 1.25 GM in IV NORMAL SALINE 250ML 250 ML IV SCH ×2 (06:08→18:38)
[2016-12-08] MEDS: PANTOPRAZOLE IV PUSH 40 MG VIAL. IVP SCH (07:30)
--- NOTE | 2016-12-08 08:30 | PDOC ---
PULMONARY PROGRESS NOTES Subjective on vent sedated, large ett secretion, sedated Vitals Vital Signs Date Time Temp Pulse Resp B/P (MAP) Pulse Ox O2 Delivery O2 Flow Rate FiO2 12/08/16 07:00 72 24 105/64 (78) 100 Ventilator 12/08/16 03:00 97.7 97.7 Comments ros discussed w rn, as mentioned as above, other sys otherwise neg HEENT: Other (nc at perrl, orally intubated, nose clear... neck no lap, no thyromegaly) Lungs: Crackles Cardiovascular: S1, S2 Abdomen: Soft, Non-tender, Other (no mass) Extremities: Other (edema) Skin: Warm Labs Laboratory Tests Test 12/06/16 16:03 12/06/16 16:06 12/06/16 16:40 12/06/16 18:50 O2 Saturation 94 % (92-99) Arterial Blood pH 7.43 (7.35-7.45) Arterial Blood pCO2 at Patient Temp 30 mmHg (35-46) Arterial Blood pO2 at Patient Temp 75 mmHg (75-108) Arterial Blood HCO3 20 mmol/L (21-28) Arterial Blood Base Excess -4 mmol/L (-3-3) FiO2 28 White Blood Count 1.7 x10^3/uL (4.0-11.0) Red Blood Count 2.60 x10^6/uL (3.50-5.40) Hemoglobin 7.8 g/dL (12.0-15.5) Hematocrit 23.1 % (36.0-47.0) Mean Corpuscular Volume 89 fL (79-100) Mean Corpuscular Hemoglobin 30 pg (25-35) Mean Corpuscular Hemoglobin Concent 34 g/dL (31-37) Red Cell Distribution Width 14.5 % (11.5-14.5) Platelet Count 27 x10^3/uL (140-400) Neutrophils (%) (Auto) 81 % (31-73) Lymphocytes (%) (Auto) 10 % (24-48) Monocytes (%) (Auto) 7 % (0-9) Eosinophils (%) (Auto) 1 % (0-3) Basophils (%) (Auto) 1 % (0-3) Neutrophils # (Auto) 1.4 x10^3uL (1.8-7.7) Lymphocytes # (Auto) 0.2 x10^3/uL (1.0-4.8) Monocytes # (Auto) 0.1 x10^3/uL (0.0-1.1) Eosinophils # (Auto) 0.0 x10^3/uL (0.0-0.7) Basophils # (Auto) 0.0 x10^3/uL (0.0-0.2) Segmented Neutrophils % 68 % (35-66) Band Neutrophils % 30 % (0-9) Lymphocytes % 2 % (24-48) Toxic Granulation Mod Toxic Vacuolation Mod Dohle Bodies Present Platelet Estimate Decreased (ADEQUATE) Sodium Level 126 mmol/L (136-145) Potassium Level 3.7 mmol/L (3.5-5.1) Chloride Level 94 mmol/L (98-107) Carbon Dioxide Level 22 mmol/L (21-32) Anion Gap 10 (6-14) Blood Urea Nitrogen 61 mg/dL (7-20) Creatinine 1.6 mg/dL (0.6-1.0) Estimated GFR (Cockcroft-Gault) 40.5 BUN/Creatinine Ratio 38 (6-20) Glucose Level 94 mg/dL (70-99) Calcium Level 8.0 mg/dL (8.5-10.1) Total Bilirubin 1.1 mg/dL (0.2-1.0) Aspartate Amino Transf (AST/SGOT) 85 U/L (15-37) Alanine Aminotransferase (ALT/SGPT) 51 U/L (14-59) Alkaline Phosphatase 64 U/L (46-116) Ammonia 13 mcmol/L (11-34) C-Reactive Protein, Quantitative 191.2 mg/L (0-3.3) XG-Lhh-W-Type Natriuretic Peptide 5646 pg/mL (0-124) Total Protein 5.4 g/dL (6.4-8.2) Albumin 1.6 g/dL (3.4-5.0) Albumin/Globulin Ratio 0.4 (1.0-1.7) Urine Collection Type Unknown Urine Color Elliott Urine Clarity Cloudy Urine pH 5.0 Urine Specific [place] 1.020 Urine Protein 30 mg/dL (NEG-TRACE) Urine Glucose (UA) Negative mg/dL (NEG) Urine Ketones (Stick) Trace mg/dL (NEG) Urine Blood Negative (NEG) Urine Nitrite Negative (NEG) Urine Bilirubin Moderate (NEG) Urine Urobilinogen Dipstick 1.0 mg/dL (0.2 mg/dL) Urine Leukocyte Esterase Small (NEG) Urine RBC 0 /HPF (0-2) Urine WBC 5-10 /HPF (0-4) Urine Amorphous Sediment Present /HPF Urine Bacteria 0 /HPF (0-FEW) Urine Hyaline Casts Many /HPF Urine Granular Casts Occasional /HPF Clostridium difficile Toxin (PCR) Negative (Negative) Nasal Screen MRSA (PCR) Positive (Negative) Test 12/06/16 19:10 12/06/16 20:15 12/07/16 01:15 12/07/16 04:20 Lactic Acid Level 1.0 mmol/L (0.4-2.0) O2 Saturation 98 % (92-99) Arterial Blood pH 7.36 (7.35-7.45) Arterial Blood pCO2 at Patient Temp 30 mmHg (35-46) Arterial Blood pO2 at Patient Temp 134 mmHg (75-108) Arterial Blood HCO3 17 mmol/L (21-28) Arterial Blood Base Excess -8 mmol/L (-3-3) FiO2 40 Urine Opiates Screen Pos (NEG) Urine Methadone Screen Neg (NEG) Urine Barbiturates Neg (NEG) Urine Phencyclidine Screen Neg (NEG) Urine Amphetamine/Methamphetamine Neg (NEG) Urine Benzodiazepines Screen Pos (NEG) Urine Cocaine Screen Neg (NEG) Urine Cannabinoids Screen Neg (NEG) Urine Ethyl Alcohol Neg (NEG) Stool Occult Blood Negative (NEG) Test 12/07/16 05:00 12/07/16 08:00 12/08/16 03:38 White Blood Count 2.7 x10^3/uL (4.0-11.0) 2.7 x10^3/uL (4.0-11.0) Red Blood Count 2.85 x10^6/uL (3.50-5.40) 2.56 x10^6/uL (3.50-5.40) Hemoglobin 8.6 g/dL (12.0-15.5) 7.7 g/dL (12.0-15.5) Hematocrit 25.6 % (36.0-47.0) 23.1 % (36.0-47.0) Mean Corpuscular Volume 90 fL (79-100) 90 fL (79-100) Mean Corpuscular Hemoglobin 30 pg (25-35) 30 pg (25-35) Mean Corpuscular Hemoglobin Concent 34 g/dL (31-37) 34 g/dL (31-37) Red Cell Distribution Width 15.2 % (11.5-14.5) 14.6 % (11.5-14.5) Platelet Count 37 x10^3/uL (140-400) 38 x10^3/uL (140-400) Neutrophils (%) (Auto) 79 % (31-73) 79 % (31-73) Lymphocytes (%) (Auto) 9 % (24-48) 13 % (24-48) Monocytes (%) (Auto) 8 % (0-9) 7 % (0-9) Eosinophils (%) (Auto) 3 % (0-3) 0 % (0-3) Basophils (%) (Auto) 1 % (0-3) 0 % (0-3) Neutrophils # (Auto) 2.1 x10^3uL (1.8-7.7) 2.1 x10^3uL (1.8-7.7) Lymphocytes # (Auto) 0.2 x10^3/uL (1.0-4.8) 0.3 x10^3/uL (1.0-4.8) Monocytes # (Auto) 0.2 x10^3/uL (0.0-1.1) 0.2 x10^3/uL (0.0-1.1) Eosinophils # (Auto) 0.1 x10^3/uL (0.0-0.7) 0.0 x10^3/uL (0.0-0.7) Basophils # (Auto) 0.0 x10^3/uL (0.0-0.2) 0.0 x10^3/uL (0.0-0.2) Sodium Level 132 mmol/L (136-145) 139 mmol/L (136-145) Potassium Level 3.7 mmol/L (3.5-5.1) 3.6 mmol/L (3.5-5.1) Chloride Level 101 mmol/L (98-107) 109 mmol/L (98-107) Carbon Dioxide Level 20 mmol/L (21-32) 19 mmol/L (21-32) Anion Gap 11 (6-14) 11 (6-14) Blood Urea Nitrogen 42 mg/dL (7-20) 41 mg/dL (7-20) Creatinine 1.0 mg/dL (0.6-1.0) 0.6 mg/dL (0.6-1.0) Estimated GFR (Cockcroft-Gault) 69.7 125.6 Glucose Level 118 mg/dL (70-99) 151 mg/dL (70-99) Calcium Level 7.6 mg/dL (8.5-10.1) 8.6 mg/dL (8.5-10.1) O2 Saturation 99 % (92-99) Arterial Blood pH 7.39 (7.35-7.45) Arterial Blood pCO2 at Patient Temp 27 mmHg (35-46) Arterial Blood pO2 at Patient Temp 150 mmHg (75-108) Arterial Blood HCO3 16 mmol/L (21-28) Arterial Blood Base Excess -8 mmol/L (-3-3) FiO2 40 Laboratory Tests Test 12/08/16 03:38 White Blood Count 2.7 x10^3/uL (4.0-11.0) Red Blood Count 2.56 x10^6/uL (3.50-5.40) Hemoglobin 7.7 g/dL (12.0-15.5) Hematocrit 23.1 % (36.0-47.0) Mean Corpuscular Volume 90 fL (79-100) Mean Corpuscular Hemoglobin 30 pg (25-35) Mean Corpuscular Hemoglobin Concent 34 g/dL (31-37) Red Cell Distribution Width 14.6 % (11.5-14.5) Platelet Count 38 x10^3/uL (140-400) Neutrophils (%) (Auto) 79 % (31-73) Lymphocytes (%) (Auto) 13 % (24-48) Monocytes (%) (Auto) 7 % (0-9) Eosinophils (%) (Auto) 0 % (0-3) Basophils (%) (Auto) 0 % (0-3) Neutrophils # (Auto) 2.1 x10^3uL (1.8-7.7) Lymphocytes # (Auto) 0.3 x10^3/uL (1.0-4.8) Monocytes # (Auto) 0.2 x10^3/uL (0.0-1.1) Eosinophils # (Auto) 0.0 x10^3/uL (0.0-0.7) Basophils # (Auto) 0.0 x10^3/uL (0.0-0.2) Sodium Level 139 mmol/L (136-145) Potassium Level 3.6 mmol/L (3.5-5.1) Chloride Level 109 mmol/L (98-107) Carbon Dioxide Level 19 mmol/L (21-32) Anion Gap 11 (6-14) Blood Urea Nitrogen 41 mg/dL (7-20) Creatinine 0.6 mg/dL (0.6-1.0) Estimated GFR (Cockcroft-Gault) 125.6 Glucose Level 151 mg/dL (70-99) Calcium Level 8.6 mg/dL (8.5-10.1) Medications Active Scripts Medications Dose Route/Sig Max Daily Dose Days Date Category Oxycodone Hcl 5 Mg Tablet 5 Mg PO PRN Q6HRS PRN 11/28/16 Rx Albuterol Sulfate Neb Soln (Albuterol Sulfate) 1.25 Mg/3 Ml Vial.neb 1 Vial NEB Q6HRS 11/25/16 Reported Ranitidine Hcl 150 Mg Capsule 75 Mg PO DAILY 11/25/16 Reported Ondansetron Hcl 8 Mg Tablet 8 Mg PO DAILY 11/25/16 Reported Azithromycin Tablet (Azithromycin) 250 Mg Tablet 250 Mg PO DAILY 11/25/16 Reported Bupropion Hcl 100 Mg Tablet 100 Mg PO BID 11/25/16 Reported Nasal Allergy [place] (Cromolyn Sodium) 13 Ml [place].pump 13 Ml NS DAILY 11/25/16 Reported Gabapentin 300 Mg Capsule 300 Mg PO BID 11/25/16 Reported Hydroxyzine Hcl 25 Mg Tablet 25 Mg PO DAILY 11/25/16 Reported Nystatin 15 Gm Cream..g. 15 Gm TP BID 11/25/16 Reported Duloxetine Hcl 60 Mg Capsule.dr 60 Mg PO DAILY 11/25/16 Reported Clonidine Hcl 0.1 Mg Tablet 0.1 Mg PO DAILY 11/25/16 Reported Lisinopril 20 Mg Tablet 20 Mg PO DAILY 11/25/16 Reported Famciclovir 125 Mg Tablet 125 Mg PO DAILY 11/25/16 Reported Ropinirole Hcl 0.25 Mg Tablet 0.25 Mg PO DAILY 11/25/16 Reported Hydroxychloroquine Sulfate 200 Mg Tablet 200 Mg PO DAILY 11/25/16 Reported Lyrica (Pregabalin) 150 Mg Capsule 150 Mg PO DAILY 11/25/16 Reported Furosemide 20 Mg Tablet 20 Mg PO DAILY 11/25/16 Reported Alprazolam 0.25 Mg Tablet 0.25 Mg PO 11/25/16 Reported Oxycodone Hcl 5 Mg Tablet 5 Mg PO PRN Q4HRS PRN 11/25/16 Reported Ibuprofen 400 Mg Tablet 400 Mg PO PRN DAILY PRN 05/11/15 Reported Multivitamins (Multivitamin) 1 Each Tablet 1 Each PO DAILY 05/11/15 Reported Oxycodone-Acetaminophen 10-325 (Oxycodone Hcl/Acetaminophen) 1 Each Tablet 1 Each PO PRN Q4-6HRS PRN 05/11/15 Reported Plaquenil (Hydroxychloroquine Sulfate) 200 Mg Tablet 200 Mg PO BID 08/19/13 Reported Comments cxr reviewed,, 1. Improved airspace infiltrates. Mild pulmonary edema persists. 2. Mild cardiomegaly. Impression . IMPRESSION: 1. Acute respiratory failure, multifactorial in etiology. 2. Abnormal chest x-ray could be secondary to volume overload, congestive heart failure or pneumonia. 3. Septic shock, bacteremis, g + cocci 4. Hypotension, resolved. 5. Pancytopenia. 6. Systemic lupus erythematosus, immunocompromised. 7. Hyponatremia. 8. Acute kidney injury. 9. History of breast cancer. 10. Hepatitis C. 11. Gastroesophageal reflux disease. 12. MRSA colonization. Plan . PLAN AND RECOMMENDATIONS: 1. Titrate FiO2 to keep O2 saturation 94%. 2. Continue ventilator support. Ventilator setting was reviewed. decrease sedation, sbt when more awake 3. Continue antibiotic per D 4. Follow up sheikh cultures. 5. Protonix for stress ulcer prophylaxis. 6. Start DuoNeb. 7. SCDs. 8. ABG and portable chest x-ray. 9. solucortef 100 mg q 8hrs The findings and recommendations were discussed with RN and RT. MAYURI WHITNEY MD Dec 08, 2016 08:30
[2016-12-08] MEDS: IPRATRPIUM/ALBUTEROL 0.5/2.5MG 3 ML NEBU. NEB SCH ×4 (08:46→20:27)
[2016-12-08] MEDS ORDERED: PNEUMOC CONJ VACC 23-VALENT 0.5 ML VIAL. VAX IM ONE (09:00)
--- NOTE | 2016-12-08 09:09 | PDOC ---
Infectious Disease Note Subjective Subjective Sedated Remains intubated, FiO2 35 % BP stable, off Levophed No fever last 24 hours + diarrhea, rectal tube in place ROS ROS Unobtainable Vital Sign Vital Signs Vital Signs Date Time Temp Pulse Resp B/P (MAP) Pulse Ox O2 Delivery O2 Flow Rate FiO2 12/08/16 07:00 72 24 105/64 (78) 100 Ventilator 12/08/16 03:00 97.7 97.7 Physical Exam PHYSICAL EXAM GENERAL: Intubated and sedated. mittens HEENT: PERRL. ETT. LUNGS: Clear to auscultation anteriorly. HEART: Normal S1 and S2. ABDOMEN: Nondistended. Bowel sounds present, soft. + rectal tube. GENITOURINARY: [place] EXTREMITIES: Generalized trace edema. No cyanosis SKIN: Without rash. Warm to touch. NEUROLOGIC: Unresponsive/sedated. Port-a-cath. clean Labs Lab Laboratory Tests Test 12/08/16 03:38 White Blood Count 2.7 x10^3/uL (4.0-11.0) Red Blood Count 2.56 x10^6/uL (3.50-5.40) Hemoglobin 7.7 g/dL (12.0-15.5) Hematocrit 23.1 % (36.0-47.0) Mean Corpuscular Volume 90 fL (79-100) Mean Corpuscular Hemoglobin 30 pg (25-35) Mean Corpuscular Hemoglobin Concent 34 g/dL (31-37) Red Cell Distribution Width 14.6 % (11.5-14.5) Platelet Count 38 x10^3/uL (140-400) Neutrophils (%) (Auto) 79 % (31-73) Lymphocytes (%) (Auto) 13 % (24-48) Monocytes (%) (Auto) 7 % (0-9) Eosinophils (%) (Auto) 0 % (0-3) Basophils (%) (Auto) 0 % (0-3) Neutrophils # (Auto) 2.1 x10^3uL (1.8-7.7) Lymphocytes # (Auto) 0.3 x10^3/uL (1.0-4.8) Monocytes # (Auto) 0.2 x10^3/uL (0.0-1.1) Eosinophils # (Auto) 0.0 x10^3/uL (0.0-0.7) Basophils # (Auto) 0.0 x10^3/uL (0.0-0.2) Sodium Level 139 mmol/L (136-145) Potassium Level 3.6 mmol/L (3.5-5.1) Chloride Level 109 mmol/L (98-107) Carbon Dioxide Level 19 mmol/L (21-32) Anion Gap 11 (6-14) Blood Urea Nitrogen 41 mg/dL (7-20) Creatinine 0.6 mg/dL (0.6-1.0) Estimated GFR (Cockcroft-Gault) 125.6 Glucose Level 151 mg/dL (70-99) Calcium Level 8.6 mg/dL (8.5-10.1) Micro URINE CULTURE RES 1 Preliminary Comment No growth after 18-24 hours. BLOOD CULTURE Final GRAM POSITIVE COCCI IN CLUSTERS 1 SET DRAWN, 1 OF 2 POSITIVE CALLED SILVIA CAREY RN IN ICU BY AVA,12/07/16,1400 SPECIMEN SEND TO [facility] FOR FURTHER WORK GRAM POSITIVE COCCI IN CLUSTERS 1 SET DRAWN,2 OF 2 POSITIVE Objective Assessment Sepsis. POA Hypotension, now off pressor Pancytopenia PCN allergy, reaction unknown Acute encephalopathy LEONARDO Acute respiratory failure h/o breast cancer, s/p chemo. Port still in place Lupus on Plaquenil Recent E. coli UTI MRSA nares, 11/25, 12/06 Diarrhea. C. diff. neg 12/06 Plan Plan of Care Vanc, meropenem Monitor WBC, Cr and temp Await GPC ID Critically ill Attending Co-Sign The patient was seen and interviewed as well as examined at the bedside. The chart was reviewed. The case was discussed. Agree with the plan of care. YOCASTA RODRÍGUEZ APRN Dec 08, 2016 09:09 AMANDA MARC MD Dec 08, 2016 12:07
--- NOTE | 2016-12-08 09:11 | RAD ---
EXAM: Chest one view. HISTORY: Ventilated, respiratory failure. COMPARISON: 12/06/2016. FINDINGS: A frontal view of the chest is obtained. An endotracheal tube has its tip 2.5 cm above the nunu. A left-sided port catheter has its tip in the right atrium. Cholecystectomy clips are noted. Previously noted airspace opacities in the right base and left apex have improved. There are mild interstitial opacities elsewhere. Calcified mediastinal lymph nodes are likely secondary to old granulomatous disease. There is no pneumothorax or clear pleural effusion. The heart is mildly enlarged. IMPRESSION: 1. Improved airspace infiltrates. Mild pulmonary edema persists. 2. Mild cardiomegaly.
--- NOTE | 2016-12-08 13:02 | CARD ---
APPROVED REPORT EXAM: Two-dimensional and M-mode echocardiogram with Doppler and color Doppler. Other Information Quality : Good INDICATION Hypotension 2D DIMENSIONS RVDd3.0 (2.9-3.5cm)Left Atrium(2D)4.1 (1.6-4.0cm) IVSd0.8 (0.7-1.1cm)Aortic Root(2D)2.7 (2.0-3.7cm) LVDd4.4 (3.9-5.9cm)LVOT Diameter2.0 (1.8-2.4cm) PWd0.9 (0.7-1.1cm)LVDs2.7 (2.5-4.0cm) FS (%) 39.1 %SV60.9 ml LVEF(%)60.0 (>50%) Aortic Valve AoV Peak Pablo.163.0cm/sAoV VTI28.0cm AO Peak GR.10.6mmHgLVOT VTI 26.02cm AO Mean GR.6mmHg Mitral Valve MV E Cnaswiqj495.2cm/sMV DECEL [id number] MV A Zlvoonhv929.8cm/sE/A Ratio0.9 TDI Lateral E' P. V8.82cm/sMedial E' P. V5.60cm/s E/Lateral E'12.4E/Medial E'19.5 Tricuspid Valve TR P. Jrquujdh824nc/sRAP [id number] TR Peak Gr.12yfJuARDO54smIc Pulmonary Vein S1 Lsrkqxuw57.9cm/sS2 Cndpoava21.51cm/s D2 Expeerkn47.5cm/s LEFT VENTRICLE The left ventricle is normal size. There is normal left ventricular wall thickness. The left ventricu lar systolic function is normal and the ejection fraction is 60% There is normal LV segmental wall mo tion. Transmitral Doppler flow pattern is Grade I-abnormal relaxation pattern. RIGHT VENTRICLE The right ventricle is normal size. The right ventricular systolic function is normal. ATRIA The left atrium is mildly dilated. The right atrium size is normal. The interatrial septum is intact with no evidence for an atrial septal defect or patent foramen ovale as noted on 2-D or Doppler imagi ng. AORTIC VALVE The aortic valve is calcified but opens well. Doppler and Color Flow revealed no significant aortic r egurgitation. There is no significant aortic valvular stenosis. MITRAL VALVE The mitral valve is normal in structure Mitral annular calcification is mild. There is no evidence of mitral valve prolapse. There is no mitral valve stenosis. Doppler and Color-flow revealed mild pooja l regurgitation. TRICUSPID VALVE The tricuspid valve is normal in structure Doppler and Color Flow revealed mild tricuspid regurgitati on. There is mild pulmonary hypertension. The PA pressure was estimated at 34 mmHg. There is no tricu spid valve stenosis. PULMONIC VALVE The pulmonary valve is normal in structure Doppler and Color Flow revealed trace pulmonic valvular re gurgitation. There is no pulmonic valvular stenosis. GREAT VESSELS The aortic root is normal in size. The ascending aorta is normal in size. PERICARDIAL EFFUSION There is a trace of pericardial effusion. Critical Notification Critical Value: No <Conclusion> The left ventricular systolic function is normal and the ejection fraction is 60% Transmitral Doppler flow pattern is Grade I-abnormal relaxation pattern. The left atrium is mildly dilated. The right atrium size is normal. The aortic valve is calcified but opens well. Doppler and Color-flow revealed mild mitral regurgitation. The mitral valve is normal in structure Mitral annular calcification is mild. Doppler and Color Flow revealed mild tricuspid regurgitation. There is mild pulmonary hypertension. The PA pressure was estimated at 34 mmHg. Doppler and Color Flow revealed trace pulmonic valvular regurgitation. There is a trace of pericardial effusion.
--- NOTE | 2016-12-08 13:28 | PDOC ---
PROGRESS NOTES Chief Complaint Chief Complaint cc: hypotension 1. Shock, septic: off Levophed, on IV hydration, on Meropenem and Vancomycin, Ranal dosing. follow blood cx. GPC 2. Pancytopenia: monitor, neutropenic precautions, monitor, consult hematology. 3. Acute respiratory failure on Mechan[employer] ventilation: daily CXR, sedation breaks, tube feeding, Protonix and but no DVT prophylaxis. 4. Malnutrition, 5. Lupus, immuno suppressive state. 6. Recently treated urinary tract infection, Escherichia coli. 7. Hyponatremia.: improving. Prognosis: guarded, critical conditions, d/w sister at bedside, all questions answered. cc time 31 min. Vitals Vitals Vital Signs Date Time Temp Pulse Resp B/P (MAP) Pulse Ox O2 Delivery O2 Flow Rate FiO2 12/08/16 12:50 100 Ventilator 12/08/16 12:00 76 20 104/58 (73) 12/08/16 09:00 97.9 97.9 Physical Exam General: Other (sedated) Heart: Normal S1, Normal S2 Lungs: Clear Abdomen: Normal bowel sounds, Soft Extremities: No clubbing Skin: Other Labs LABS Laboratory Tests Test 12/08/16 03:38 White Blood Count 2.7 x10^3/uL (4.0-11.0) Red Blood Count 2.56 x10^6/uL (3.50-5.40) Hemoglobin 7.7 g/dL (12.0-15.5) Hematocrit 23.1 % (36.0-47.0) Mean Corpuscular Volume 90 fL (79-100) Mean Corpuscular Hemoglobin 30 pg (25-35) Mean Corpuscular Hemoglobin Concent 34 g/dL (31-37) Red Cell Distribution Width 14.6 % (11.5-14.5) Platelet Count 38 x10^3/uL (140-400) Neutrophils (%) (Auto) 79 % (31-73) Lymphocytes (%) (Auto) 13 % (24-48) Monocytes (%) (Auto) 7 % (0-9) Eosinophils (%) (Auto) 0 % (0-3) Basophils (%) (Auto) 0 % (0-3) Neutrophils # (Auto) 2.1 x10^3uL (1.8-7.7) Lymphocytes # (Auto) 0.3 x10^3/uL (1.0-4.8) Monocytes # (Auto) 0.2 x10^3/uL (0.0-1.1) Eosinophils # (Auto) 0.0 x10^3/uL (0.0-0.7) Basophils # (Auto) 0.0 x10^3/uL (0.0-0.2) Sodium Level 139 mmol/L (136-145) Potassium Level 3.6 mmol/L (3.5-5.1) Chloride Level 109 mmol/L (98-107) Carbon Dioxide Level 19 mmol/L (21-32) Anion Gap 11 (6-14) Blood Urea Nitrogen 41 mg/dL (7-20) Creatinine 0.6 mg/dL (0.6-1.0) Estimated GFR (Cockcroft-Gault) 125.6 Glucose Level 151 mg/dL (70-99) Calcium Level 8.6 mg/dL (8.5-10.1) Assessment and Plan Assessmemt and Plan Problems Medical Problems: (1) Respiratory failure Status: Acute Problems: Comment Review of Relevant I have reviewed the following items anselmo (where applicable) has been applied. Labs Laboratory Tests Test 12/06/16 16:03 12/06/16 16:06 12/06/16 16:40 12/06/16 18:50 O2 Saturation 94 % (92-99) Arterial Blood pH 7.43 (7.35-7.45) Arterial Blood pCO2 at Patient Temp 30 mmHg (35-46) Arterial Blood pO2 at Patient Temp 75 mmHg (75-108) Arterial Blood HCO3 20 mmol/L (21-28) Arterial Blood Base Excess -4 mmol/L (-3-3) FiO2 28 White Blood Count 1.7 x10^3/uL (4.0-11.0) Red Blood Count 2.60 x10^6/uL (3.50-5.40) Hemoglobin 7.8 g/dL (12.0-15.5) Hematocrit 23.1 % (36.0-47.0) Mean Corpuscular Volume 89 fL (79-100) Mean Corpuscular Hemoglobin 30 pg (25-35) Mean Corpuscular Hemoglobin Concent 34 g/dL (31-37) Red Cell Distribution Width 14.5 % (11.5-14.5) Platelet Count 27 x10^3/uL (140-400) Neutrophils (%) (Auto) 81 % (31-73) Lymphocytes (%) (Auto) 10 % (24-48) Monocytes (%) (Auto) 7 % (0-9) Eosinophils (%) (Auto) 1 % (0-3) Basophils (%) (Auto) 1 % (0-3) Neutrophils # (Auto) 1.4 x10^3uL (1.8-7.7) Lymphocytes # (Auto) 0.2 x10^3/uL (1.0-4.8) Monocytes # (Auto) 0.1 x10^3/uL (0.0-1.1) Eosinophils # (Auto) 0.0 x10^3/uL (0.0-0.7) Basophils # (Auto) 0.0 x10^3/uL (0.0-0.2) Segmented Neutrophils % 68 % (35-66) Band Neutrophils % 30 % (0-9) Lymphocytes % 2 % (24-48) Toxic Granulation Mod Toxic Vacuolation Mod Dohle Bodies Present Platelet Estimate Decreased (ADEQUATE) Sodium Level 126 mmol/L (136-145) Potassium Level 3.7 mmol/L (3.5-5.1) Chloride Level 94 mmol/L (98-107) Carbon Dioxide Level 22 mmol/L (21-32) Anion Gap 10 (6-14) Blood Urea Nitrogen 61 mg/dL (7-20) Creatinine 1.6 mg/dL (0.6-1.0) Estimated GFR (Cockcroft-Gault) 40.5 BUN/Creatinine Ratio 38 (6-20) Glucose Level 94 mg/dL (70-99) Calcium Level 8.0 mg/dL (8.5-10.1) Total Bilirubin 1.1 mg/dL (0.2-1.0) Aspartate Amino Transf (AST/SGOT) 85 U/L (15-37) Alanine Aminotransferase (ALT/SGPT) 51 U/L (14-59) Alkaline Phosphatase 64 U/L (46-116) Ammonia 13 mcmol/L (11-34) C-Reactive Protein, Quantitative 191.2 mg/L (0-3.3) WN-Slv-Q-Type Natriuretic Peptide 5646 pg/mL (0-124) Total Protein 5.4 g/dL (6.4-8.2) Albumin 1.6 g/dL (3.4-5.0) Albumin/Globulin Ratio 0.4 (1.0-1.7) Urine Collection Type Unknown Urine Color [place] Urine Clarity Cloudy Urine pH 5.0 Urine Specific [place] 1.020 Urine Protein 30 mg/dL (NEG-TRACE) Urine Glucose (UA) Negative mg/dL (NEG) Urine Ketones (Stick) Trace mg/dL (NEG) Urine Blood Negative (NEG) Urine Nitrite Negative (NEG) Urine Bilirubin Moderate (NEG) Urine Urobilinogen Dipstick 1.0 mg/dL (0.2 mg/dL) Urine Leukocyte Esterase Small (NEG) Urine RBC 0 /HPF (0-2) Urine WBC 5-10 /HPF (0-4) Urine Amorphous Sediment Present /HPF Urine Bacteria 0 /HPF (0-FEW) Urine Hyaline Casts Many /HPF Urine Granular Casts Occasional /HPF Clostridium difficile Toxin (PCR) Negative (Negative) Nasal Screen MRSA (PCR) Positive (Negative) Test 12/06/16 19:10 12/06/16 20:15 12/07/16 01:15 12/07/16 04:20 Lactic Acid Level 1.0 mmol/L (0.4-2.0) O2 Saturation 98 % (92-99) Arterial Blood pH 7.36 (7.35-7.45) Arterial Blood pCO2 at Patient Temp 30 mmHg (35-46) Arterial Blood pO2 at Patient Temp 134 mmHg (75-108) Arterial Blood HCO3 17 mmol/L (21-28) Arterial Blood Base Excess -8 mmol/L (-3-3) FiO2 40 Urine Opiates Screen Pos (NEG) Urine Methadone Screen Neg (NEG) Urine Barbiturates Neg (NEG) Urine Phencyclidine Screen Neg (NEG) Urine Amphetamine/Methamphetamine Neg (NEG) Urine Benzodiazepines Screen Pos (NEG) Urine Cocaine Screen Neg (NEG) Urine Cannabinoids Screen Neg (NEG) Urine Ethyl Alcohol Neg (NEG) Stool Occult Blood Negative (NEG) Test 12/07/16 05:00 12/07/16 08:00 12/08/16 03:38 White Blood Count 2.7 x10^3/uL (4.0-11.0) 2.7 x10^3/uL (4.0-11.0) Red Blood Count 2.85 x10^6/uL (3.50-5.40) 2.56 x10^6/uL (3.50-5.40) Hemoglobin 8.6 g/dL (12.0-15.5) 7.7 g/dL (12.0-15.5) Hematocrit 25.6 % (36.0-47.0) 23.1 % (36.0-47.0) Mean Corpuscular Volume 90 fL (79-100) 90 fL (79-100) Mean Corpuscular Hemoglobin 30 pg (25-35) 30 pg (25-35) Mean Corpuscular Hemoglobin Concent 34 g/dL (31-37) 34 g/dL (31-37) Red Cell Distribution Width 15.2 % (11.5-14.5) 14.6 % (11.5-14.5) Platelet Count 37 x10^3/uL (140-400) 38 x10^3/uL (140-400) Neutrophils (%) (Auto) 79 % (31-73) 79 % (31-73) Lymphocytes (%) (Auto) 9 % (24-48) 13 % (24-48) Monocytes (%) (Auto) 8 % (0-9) 7 % (0-9) Eosinophils (%) (Auto) 3 % (0-3) 0 % (0-3) Basophils (%) (Auto) 1 % (0-3) 0 % (0-3) Neutrophils # (Auto) 2.1 x10^3uL (1.8-7.7) 2.1 x10^3uL (1.8-7.7) Lymphocytes # (Auto) 0.2 x10^3/uL (1.0-4.8) 0.3 x10^3/uL (1.0-4.8) Monocytes # (Auto) 0.2 x10^3/uL (0.0-1.1) 0.2 x10^3/uL (0.0-1.1) Eosinophils # (Auto) 0.1 x10^3/uL (0.0-0.7) 0.0 x10^3/uL (0.0-0.7) Basophils # (Auto) 0.0 x10^3/uL (0.0-0.2) 0.0 x10^3/uL (0.0-0.2) Sodium Level 132 mmol/L (136-145) 139 mmol/L (136-145) Potassium Level 3.7 mmol/L (3.5-5.1) 3.6 mmol/L (3.5-5.1) Chloride Level 101 mmol/L (98-107) 109 mmol/L (98-107) Carbon Dioxide Level 20 mmol/L (21-32) 19 mmol/L (21-32) Anion Gap 11 (6-14) 11 (6-14) Blood Urea Nitrogen 42 mg/dL (7-20) 41 mg/dL (7-20) Creatinine 1.0 mg/dL (0.6-1.0) 0.6 mg/dL (0.6-1.0) Estimated GFR (Cockcroft-Gault) 69.7 125.6 Glucose Level 118 mg/dL (70-99) 151 mg/dL (70-99) Calcium Level 7.6 mg/dL (8.5-10.1) 8.6 mg/dL (8.5-10.1) O2 Saturation 99 % (92-99) Arterial Blood pH 7.39 (7.35-7.45) Arterial Blood pCO2 at Patient Temp 27 mmHg (35-46) Arterial Blood pO2 at Patient Temp 150 mmHg (75-108) Arterial Blood HCO3 16 mmol/L (21-28) Arterial Blood Base Excess -8 mmol/L (-3-3) FiO2 40 Laboratory Tests Test 12/08/16 03:38 White Blood Count 2.7 x10^3/uL (4.0-11.0) Red Blood Count 2.56 x10^6/uL (3.50-5.40) Hemoglobin 7.7 g/dL (12.0-15.5) Hematocrit 23.1 % (36.0-47.0) Mean Corpuscular Volume 90 fL (79-100) Mean Corpuscular Hemoglobin 30 pg (25-35) Mean Corpuscular Hemoglobin Concent 34 g/dL (31-37) Red Cell Distribution Width 14.6 % (11.5-14.5) Platelet Count 38 x10^3/uL (140-400) Neutrophils (%) (Auto) 79 % (31-73) Lymphocytes (%) (Auto) 13 % (24-48) Monocytes (%) (Auto) 7 % (0-9) Eosinophils (%) (Auto) 0 % (0-3) Basophils (%) (Auto) 0 % (0-3) Neutrophils # (Auto) 2.1 x10^3uL (1.8-7.7) Lymphocytes # (Auto) 0.3 x10^3/uL (1.0-4.8) Monocytes # (Auto) 0.2 x10^3/uL (0.0-1.1) Eosinophils # (Auto) 0.0 x10^3/uL (0.0-0.7) Basophils # (Auto) 0.0 x10^3/uL (0.0-0.2) Sodium Level 139 mmol/L (136-145) Potassium Level 3.6 mmol/L (3.5-5.1) Chloride Level 109 mmol/L (98-107) Carbon Dioxide Level 19 mmol/L (21-32) Anion Gap 11 (6-14) Blood Urea Nitrogen 41 mg/dL (7-20) Creatinine 0.6 mg/dL (0.6-1.0) Estimated GFR (Cockcroft-Gault) 125.6 Glucose Level 151 mg/dL (70-99) Calcium Level 8.6 mg/dL (8.5-10.1) Microbiology 12/06/16 Blood Culture - Preliminary, Resulted 12/06/16 Blood Culture Result 1 (LUCINA) - Preliminary, Resulted 12/06/16 Urine Culture - Preliminary, Resulted 12/06/16 Urine Culture Result 1 (LUCINA) - Preliminary, Resulted Medications Current Medications Sodium Chloride 1,000 ml @ 1,000 mls/hr 1X ONCE IV Last administered on 16:18; Start 12/06/16 at 16:15; Stop 12/06/16 at 17:14; Status DC Vancomycin HCl (Vanco Per Pharmacy) 1 each PRN DAILY PRN MC SEE COMMENTS Last administered on 12/07/16 16:43; Start 12/06/16 at 17:00 Levofloxacin/ Dextrose 150 ml @ 100 mls/hr 1X ONCE IV Last administered on 20:04; Start 12/06/16 at 17:00; Stop 12/06/16 at 18:29; Status DC Vancomycin HCl 2 gm/Sodium Chloride 500 ml @ 250 mls/hr 1X ONCE IV Last administered on 12/06/16 17:11; Start 12/06/16 at 17:00; Stop 12/06/16 at 18:59 ; Status DC Sodium Chloride 1,000 ml @ 1,000 mls/hr 1X ONCE IV Last administered on 17:09; Start 12/06/16 at 17:00; Stop 12/06/16 at 17:59; Status DC Meropenem 500 mg/ Sodium Chloride 50 ml @ 100 mls/hr Q8HRS IV Last administered on 12/08/16 05:21; Start 12/06/16 at 18:00 Dopamine HCl/ Dextrose 250 ml @ 16.414 mls/ hr 1X ONCE IV Last administered on 12/06/16 17:41; Start 12/06/16 at 17:15; Stop 12/07/16 at 08:28; Status DC Etomidate (Amidate) 20 mg 1X ONCE IV Last administered on 12/06/16 17:19; Start 12/06/16 at 17:15; Stop 12/06/16 at 17:17; Status DC Succinylcholine Chloride (Anectine) 100 mg 1X ONCE IV Last administered on 17:20; Start 12/06/16 at 17:15; Stop 12/06/16 at 17:17; Status DC Vancomycin HCl 1.25 gm/Sodium Chloride 250 ml @ 167 mls/hr Q24H IV Last administered on 12/07/16 18:39; Start 12/07/16 at 17:00; Stop 12/07/16 at 23:00 ; Status DC Vancomycin HCl 1 each 1X ONCE MC ; Start 12/07/16 at 16:30; Stop 12/07/16 at 16 :31; Status Cancel Midazolam HCl 100 ml @ As Directed STK-MED ONCE IV ; Start 12/06/16 at 17:36; Stop 12/06/16 at 17:37; Status DC Midazolam HCl (Versed) 5 mg STK-MED ONCE .ROUTE ; Start 12/06/16 at 17:37; Stop 12/06/16 at 17:38; Status DC Midazolam HCl (Versed) 5 mg PRN Q10MIN PRN IV SEDATION; Start 12/06/16 at 17:45 Hydrocortisone Sodium Succinate (Solu-CORTEF) 100 mg Q8HRS IV Last administered on 12/08/16 05:25; Start 12/06/16 at 18:30 Norepinephrine Bitartrate 16 mg/ Sodium Chloride 266 ml @ 0 mls/hr CONT PRN IV SEE I/O RECORD; Start 12/06/16 at 19:00; Status UNV Pantoprazole Sodium (Protonix Vial) 40 mg DAILYAC IVP Last administered on 12/08 07:30; Start 12/06/16 at 19:30 Acetaminophen (Tylenol) 325 mg PRN Q6HRS PRN PO MILD PAIN / TEMP; Start at 19:00 Hydralazine HCl (Apresoline) 10 mg PRN Q4HRS PRN IVP ELEVATED BP, SEE COMMENTS ; Start 12/06/16 at 19:00 Ondansetron HCl (Zofran) 4 mg PRN Q8HRS PRN IV NAUSEA/VOMITING; Start 12/06/16 at 19:00 Albuterol Sulfate (Ventolin Neb Soln) 2.5 mg PRN Q4HRS PRN NEB SHORTNESS OF BREATH; Start 12/06/16 at 19:00 Norepinephrine Bitartrate 250 ml @ 1.875 mls/ hr CONT PRN IV SEE I/O RECORD Last administered on 12/06/16 19:55; Start 12/06/16 at 19:00 Sodium Chloride 1,000 ml @ 1,000 mls/hr 1X ONCE IV Last administered on 19:56; Start 12/06/16 at 19:15; Stop 12/06/16 at 20:14; Status DC Sodium Chloride 1,000 ml @ 125 mls/hr Q8H IV Last administered on 12/08/16 03 :19; Start 12/06/16 at 19:15 Pneumococcal Polyvalent Vaccine (Do NOT chart on this placeholder) 1 each PRN DAILY PRN MC PT UNABLE TO RESPOND; Start 12/07/16 at 09:30; Status Cancel Pneumococcal Polyvalent Vaccine (Pneumovax 23) 0.5 ml ONCE ONCE VAX IM ; Start 12/08/16 at 09:00; Stop 12/08/16 at 09:01; Status DC Albuterol/ Ipratropium (Duoneb) 3 ml RTQID NEB Last administered on 12/08/16 12:50; Start 12/07/16 at 12:00 Midazolam HCl 100 ml @ 0 mls/hr CONT PRN IV SEE I/O RECORD Last administered on 12/07/16 10:29; Start 12/07/16 at 10:15 Fentanyl Citrate (Fentanyl 2ml Vial) 25 mcg PRN Q1HR PRN IV PAIN Last administered on 12/08/16 03:20; Start 12/07/16 at 10:45 Pantoprazole Sodium (Protonix Vial) 40 mg DAILYAC IVP ; Start 12/07/16 at 17:00 ; Status Cancel Vancomycin HCl 1.25 gm/Sodium Chloride 250 ml @ 167 mls/hr Q12H IV Last administered on 12/08/16 06:08; Start 12/08/16 at 06:00 Vancomycin HCl 1 each 1X ONCE MC ; Start 12/08/16 at 17:30; Stop 12/08/16 at 17 :31 Active Scripts Active Oxycodone Hcl 5 Mg Tablet 5 Mg PO PRN Q6HRS PRN Reported Albuterol Sulfate Neb Soln (Albuterol Sulfate) 1.25 Mg/3 Ml Vial.neb 1 Vial NEB Q6HRS Ranitidine Hcl 150 Mg Capsule 75 Mg PO DAILY Ondansetron Hcl 8 Mg Tablet 8 Mg PO DAILY Azithromycin Tablet (Azithromycin) 250 Mg Tablet 250 Mg PO DAILY Bupropion Hcl 100 Mg Tablet 100 Mg PO BID Nasal Allergy [place] (Cromolyn Sodium) 13 Ml [place].pump 13 Ml NS DAILY Gabapentin 300 Mg Capsule 300 Mg PO BID Hydroxyzine Hcl 25 Mg Tablet 25 Mg PO DAILY Nystatin 15 Gm Cream..g. 15 Gm TP BID Duloxetine Hcl 60 Mg Capsule.dr 60 Mg PO DAILY Clonidine Hcl 0.1 Mg Tablet 0.1 Mg PO DAILY Lisinopril 20 Mg Tablet 20 Mg PO DAILY Famciclovir 125 Mg Tablet 125 Mg PO DAILY Ropinirole Hcl 0.25 Mg Tablet 0.25 Mg PO DAILY Hydroxychloroquine Sulfate 200 Mg Tablet 200 Mg PO DAILY Lyrica (Pregabalin) 150 Mg Capsule 150 Mg PO DAILY Furosemide 20 Mg Tablet 20 Mg PO DAILY Alprazolam 0.25 Mg Tablet 0.25 Mg PO Oxycodone Hcl 5 Mg Tablet 5 Mg PO PRN Q4HRS PRN Ibuprofen 400 Mg Tablet 400 Mg PO PRN DAILY PRN Multivitamins (Multivitamin) 1 Each Tablet 1 Each PO DAILY Oxycodone-Acetaminophen 10-325 (Oxycodone Hcl/Acetaminophen) 1 Each Tablet 1 Each PO PRN Q4-6HRS PRN Plaquenil (Hydroxychloroquine Sulfate) 200 Mg Tablet 200 Mg PO BID Vitals/I & O Vital Sign - Last 24 Hours 12/07/16 12/07/16 12/07/16 12/07/16 14:00 14:59 15:00 16:00 Temp 98.1 98.1 Pulse 78 84 84 Resp 22 24 24 B/P (MAP) 112/63 (79) 116/63 (80) 155/82 (106) Pulse Ox 99 100 99 97 O2 Delivery Ventilator Ventilator Ventilator Ventilator 12/07/16 12/07/16 12/07/16 12/07/16 16:00 16:59 17:00 18:00 Pulse 82 84 Resp 23 24 B/P (MAP) 86/46 (59) 144/72 (96) Pulse Ox 98 98 99 O2 Delivery Mechanical Ventilator Ventilator Ventilator Ventilator 12/07/16 12/07/16 12/07/16 12/07/16 19:00 20:00 20:00 20:34 Temp 98.1 98.1 Pulse 78 76 Resp 22 21 B/P (MAP) 144/59 (87) 114/63 (80) Pulse Ox 98 99 98 O2 Delivery Ventilator Mechanical Ventilator Ventilator Ventilator 12/07/16 12/07/16 12/07/16 12/07/16 21:00 22:00 22:33 23:00 Temp 97.5 97.5 Pulse 78 78 74 Resp 20 20 23 22 B/P (MAP) 124/65 (84) 123/64 (83) 105/60 (75) Pulse Ox 99 99 99 100 O2 Delivery Ventilator Ventilator Ventilator Ventilator 12/07/16 12/08/16 12/08/16 12/08/16 23:26 00:00 00:00 01:00 Pulse 77 76 Resp 22 20 B/P (MAP) 125/75 (92) 123/74 (90) Pulse Ox 98 100 99 O2 Delivery Ventilator Mechanical Ventilator Ventilator Ventilator 12/08/16 12/08/16 12/08/16 12/08/16 02:00 02:31 03:00 03:20 Temp 97.7 97.7 Pulse 78 75 Resp 20 19 19 B/P (MAP) 125/71 (89) 129/81 (97) Pulse Ox 99 100 100 100 O2 Delivery Ventilator Ventilator Ventilator Ventilator 12/08/16 12/08/16 12/08/16 12/08/16 03:48 03:50 04:00 04:00 Pulse 76 Resp 21 21 B/P (MAP) 93/53 (66) Pulse Ox 100 100 100 O2 Delivery Ventilator Ventilator Mechanical Ventilator 12/08/16 12/08/16 12/08/16 12/08/16 05:00 05:29 06:00 07:00 Pulse 73 76 72 Resp 22 21 24 B/P (MAP) 100/61 (74) 97/61 (73) 105/64 (78) Pulse Ox 100 100 100 100 O2 Delivery Ventilator Ventilator Ventilator Ventilator 12/08/16 12/08/16 12/08/16 12/08/16 08:00 08:00 08:46 09:00 Temp 97.9 97.9 Pulse 76 72 Resp 24 24 B/P (MAP) 110/69 (83) 110/65 (80) Pulse Ox 100 100 100 O2 Delivery Ventilator Mechanical Ventilator Ventilator Ventilator 12/08/16 12/08/16 12/08/16 12/08/16 10:00 11:00 12:00 12:00 Pulse 76 77 76 Resp 24 24 20 B/P (MAP) 102/58 (73) 94/64 (74) 104/58 (73) Pulse Ox 100 100 100 O2 Delivery Ventilator Ventilator Ventilator Mechanical Ventilator 12/08/16 12:50 Pulse Ox 100 O2 Delivery Ventilator Intake and Output 12/07/16 12/07/16 12/08/16 15:00 23:00 07:00 Intake Total 0 ml 1981.17 ml 3629 ml Output Total 805 ml 585 ml 380 ml Balance -805 ml 1396.17 ml 3249 ml REDD CAN MD Dec 08, 2016 13:28
[2016-12-08] MEDS: VANCOMYCIN PER PHARMACY MC PRN (14:58)
[2016-12-08] MEDS ORDERED: VANCOMYCIN 1 GM in IV NORMAL SALINE 250ML 250 ML IV SCH (18:00)
[2016-12-08 18:23] LABS: HCO3 ABG 18 mmol/L (21-28); PCO2 ABG 29 mmHg (35-46); PH ABG 7.42 (7.35-7.45); PO2 ABG 115 mmHg (75-108); SAT O2 ABG 98 % (92-99)
[2016-12-08 19:07] LABS: FIO2 ABG 35
[2016-12-09] VITALS (24 sets, daily range): BP systolic 113–178; BP diastolic 64–103
[2016-12-09] MEDS: fentaNYL PF VIAL 100 MCG/2 ML VIAL IV PRN ×3 (00:45→21:06)
[2016-12-09 04:34] LABS: BASO % 0 % (0-3); EOS % 0 % (0-3); HEMATOCRIT 24.6 % (36.0-47.0); HEMOGLOBIN 8.2 g/dL (12.0-15.5); LYMPH # 0.4 x10^3/uL (1.0-4.8); LYMPH % 12 % (24-48); MEAN CORPUSCULAR HEMOGLOBIN 30 pg (25-35); MEAN CORPUSCULAR HGB CONC 33 g/dL (31-37); MEAN CORPUSCULAR VOLUME 89 fL (79-100); MONO % 6 % (0-9); NEUT % 82 % (31-73); PLATELET COUNT 43 x10^3/uL (140-400); RED BLOOD COUNT 2.75 x10^6/uL (3.50-5.40); RED CELL DISTRIBUTION WIDTH 15.3 % (11.5-14.5); WHITE BLOOD COUNT 3.2 x10^3/uL (4.0-11.0)
[2016-12-09 05:12] LABS: CALCIUM 8.6 mg/dL (8.5-10.1); CREATININE 0.7 mg/dL (0.6-1.0); GFR 105.1; POTASSIUM 3.9 mmol/L (3.5-5.1)
[2016-12-09] MEDS: HYDROCORTISONE SOD SUCC/PF 100 MG/2 ML VIAL. IV SCH ×3 (06:02→20:17)
[2016-12-09] MEDS: MEROPENEM 500 MG in IV NORMAL SALINE 50ML 50 ML IV SCH ×3 (06:02→22:24)
[2016-12-09] MEDS: VANCOMYCIN 1.25 GM in IV NORMAL SALINE 250ML 250 ML IV SCH ×2 (06:03→17:55)
[2016-12-09] MEDS: PANTOPRAZOLE IV PUSH 40 MG VIAL. IVP SCH (08:04)
--- NOTE | 2016-12-09 08:19 | PDOC ---
Infectious Disease Note Subjective Subjective Sedated Remains intubated, FiO2 35 % BP stable, off Levophed No fever last 24 hours + diarrhea, rectal tube in place ROS ROS unable to do Vital Sign Vital Signs Vital Signs Date Time Temp Pulse Resp B/P (MAP) Pulse Ox O2 Delivery O2 Flow Rate FiO2 12/09/16 06:00 88 16 144/79 (100) 100 Ventilator 12/09/16 03:00 98.5 98.5 Physical Exam PHYSICAL EXAM GENERAL: NAD, on vent HEENT: PERRL, OC/OP NECK: Supple, no JVD, no LN LUNGS: Clear HEART: S1S2, no gallop, no murmur ABD: Soft, NT, no organomegaly, no rebound EXT: No edema, no cyanosis [employer]: sedated on vent SKIN: No rash IV: ok Labs Lab Laboratory Tests Test 12/08/16 17:30 12/09/16 04:00 Vancomycin Level Trough 19.8 mcg/mL (10.0-20.0) Vancomycin Last Dose Date Vancomycin Last Dose Time White Blood Count 3.2 x10^3/uL (4.0-11.0) Red Blood Count 2.75 x10^6/uL (3.50-5.40) Hemoglobin 8.2 g/dL (12.0-15.5) Hematocrit 24.6 % (36.0-47.0) Mean Corpuscular Volume 89 fL (79-100) Mean Corpuscular Hemoglobin 30 pg (25-35) Mean Corpuscular Hemoglobin Concent 33 g/dL (31-37) Red Cell Distribution Width 15.3 % (11.5-14.5) Platelet Count 43 x10^3/uL (140-400) Neutrophils (%) (Auto) 82 % (31-73) Lymphocytes (%) (Auto) 12 % (24-48) Monocytes (%) (Auto) 6 % (0-9) Eosinophils (%) (Auto) 0 % (0-3) Basophils (%) (Auto) 0 % (0-3) Neutrophils # (Auto) 2.7 x10^3uL (1.8-7.7) Lymphocytes # (Auto) 0.4 x10^3/uL (1.0-4.8) Monocytes # (Auto) 0.2 x10^3/uL (0.0-1.1) Eosinophils # (Auto) 0.0 x10^3/uL (0.0-0.7) Basophils # (Auto) 0.0 x10^3/uL (0.0-0.2) Sodium Level 144 mmol/L (136-145) Potassium Level 3.9 mmol/L (3.5-5.1) Chloride Level 113 mmol/L (98-107) Carbon Dioxide Level 22 mmol/L (21-32) Anion Gap 9 (6-14) Blood Urea Nitrogen 46 mg/dL (7-20) Creatinine 0.7 mg/dL (0.6-1.0) Estimated GFR (Cockcroft-Gault) 105.1 Glucose Level 162 mg/dL (70-99) Calcium Level 8.6 mg/dL (8.5-10.1) Micro staph a Objective Assessment Sepsis. POA Hypotension, now off pressor Pancytopenia PCN allergy, reaction unknown Acute encephalopathy LEONARDO Acute respiratory failure h/o breast cancer, s/p chemo. Port still in place Lupus on Plaquenil Recent E. coli UTI MRSA nares, 11/25, 12/06 Diarrhea. C. diff. neg 12/06 BC + with staph A Plan Plan of Care Vanc, meropenem Monitor WBC, Cr and temp Critically ill AMANDA MARC MD Dec 09, 2016 08:19
[2016-12-09 08:53] LABS: HCO3 ABG 18 mmol/L (21-28); PCO2 ABG 29 mmHg (35-46); PO2 ABG 102 mmHg (75-108); SAT O2 ABG 97 % (92-99)
[2016-12-09 08:54] LABS: FIO2 ABG 35
[2016-12-09] MEDS: IPRATRPIUM/ALBUTEROL 0.5/2.5MG 3 ML NEBU. NEB SCH ×4 (08:54→20:24)
[2016-12-09] MEDS: VANCOMYCIN PER PHARMACY MC PRN (09:30)
[2016-12-09 13:56] LABS: HCO3 ABG 18 mmol/L (21-28); PCO2 ABG 30 mmHg (35-46); PO2 ABG 123 mmHg (75-108); SAT O2 ABG 98 % (92-99)
--- NOTE | 2016-12-09 14:30 | PDOC ---
PROGRESS NOTES Chief Complaint Chief Complaint cc: hypotension 1. Shock, septic: off Levophed, on IV hydration, on Meropenem and Vancomycin, Naresh dosing. follow blood cx. GPC 2. Pancytopenia: monitor, neutropenic precautions, monitor, hematology consulted 3. Acute respiratory failure on Mechan[employer] ventilation: daily CXR, sedation breaks, tube feeding, Protonix and but no DVT prophylaxis. possible extubation today. failed SBT yesterday 4. Malnutrition, 5. Lupus, immuno suppressive state. 6. Recently treated urinary tract infection, Escherichia coli. 7. Hyponatremia.: improving. Prognosis: guarded, critical conditions, Vitals Vitals Vital Signs Date Time Temp Pulse Resp B/P (MAP) Pulse Ox O2 Delivery O2 Flow Rate FiO2 12/09/16 14:00 89 16 133/75 (94) 100 Ventilator 12/09/16 12:00 98.1 98.1 Physical Exam General: Other (sedated) Heart: Normal S1, Normal S2 Lungs: Clear Abdomen: Normal bowel sounds, Soft Extremities: No clubbing Skin: Other Labs LABS Laboratory Tests Test 12/08/16 17:30 12/09/16 04:00 12/09/16 08:50 Vancomycin Level Trough 19.8 mcg/mL (10.0-20.0) Vancomycin Last Dose Date Vancomycin Last Dose Time White Blood Count 3.2 x10^3/uL (4.0-11.0) Red Blood Count 2.75 x10^6/uL (3.50-5.40) Hemoglobin 8.2 g/dL (12.0-15.5) Hematocrit 24.6 % (36.0-47.0) Mean Corpuscular Volume 89 fL (79-100) Mean Corpuscular Hemoglobin 30 pg (25-35) Mean Corpuscular Hemoglobin Concent 33 g/dL (31-37) Red Cell Distribution Width 15.3 % (11.5-14.5) Platelet Count 43 x10^3/uL (140-400) Neutrophils (%) (Auto) 82 % (31-73) Lymphocytes (%) (Auto) 12 % (24-48) Monocytes (%) (Auto) 6 % (0-9) Eosinophils (%) (Auto) 0 % (0-3) Basophils (%) (Auto) 0 % (0-3) Neutrophils # (Auto) 2.7 x10^3uL (1.8-7.7) Lymphocytes # (Auto) 0.4 x10^3/uL (1.0-4.8) Monocytes # (Auto) 0.2 x10^3/uL (0.0-1.1) Eosinophils # (Auto) 0.0 x10^3/uL (0.0-0.7) Basophils # (Auto) 0.0 x10^3/uL (0.0-0.2) Sodium Level 144 mmol/L (136-145) Potassium Level 3.9 mmol/L (3.5-5.1) Chloride Level 113 mmol/L (98-107) Carbon Dioxide Level 22 mmol/L (21-32) Anion Gap 9 (6-14) Blood Urea Nitrogen 46 mg/dL (7-20) Creatinine 0.7 mg/dL (0.6-1.0) Estimated GFR (Cockcroft-Gault) 105.1 Glucose Level 162 mg/dL (70-99) Calcium Level 8.6 mg/dL (8.5-10.1) O2 Saturation 97 % (92-99) Arterial Blood pH 7.40 (7.35-7.45) Arterial Blood pCO2 at Patient Temp 29 mmHg (35-46) Arterial Blood pO2 at Patient Temp 102 mmHg (75-108) Arterial Blood HCO3 18 mmol/L (21-28) Arterial Blood Base Excess -6 mmol/L (-3-3) FiO2 35 Assessment and Plan Assessmemt and Plan Problems Medical Problems: (1) Respiratory failure Status: Acute Problems: Comment Review of Relevant I have reviewed the following items anselmo (where applicable) has been applied. Labs Laboratory Tests Test 12/08/16 03:38 12/08/16 08:00 12/08/16 17:30 12/09/16 04:00 White Blood Count 2.7 x10^3/uL (4.0-11.0) 3.2 x10^3/uL (4.0-11.0) Red Blood Count 2.56 x10^6/uL (3.50-5.40) 2.75 x10^6/uL (3.50-5.40) Hemoglobin 7.7 g/dL (12.0-15.5) 8.2 g/dL (12.0-15.5) Hematocrit 23.1 % (36.0-47.0) 24.6 % (36.0-47.0) Mean Corpuscular Volume 90 fL (79-100) 89 fL (79-100) Mean Corpuscular Hemoglobin 30 pg (25-35) 30 pg (25-35) Mean Corpuscular Hemoglobin Concent 34 g/dL (31-37) 33 g/dL (31-37) Red Cell Distribution Width 14.6 % (11.5-14.5) 15.3 % (11.5-14.5) Platelet Count 38 x10^3/uL (140-400) 43 x10^3/uL (140-400) Neutrophils (%) (Auto) 79 % (31-73) 82 % (31-73) Lymphocytes (%) (Auto) 13 % (24-48) 12 % (24-48) Monocytes (%) (Auto) 7 % (0-9) 6 % (0-9) Eosinophils (%) (Auto) 0 % (0-3) 0 % (0-3) Basophils (%) (Auto) 0 % (0-3) 0 % (0-3) Neutrophils # (Auto) 2.1 x10^3uL (1.8-7.7) 2.7 x10^3uL (1.8-7.7) Lymphocytes # (Auto) 0.3 x10^3/uL (1.0-4.8) 0.4 x10^3/uL (1.0-4.8) Monocytes # (Auto) 0.2 x10^3/uL (0.0-1.1) 0.2 x10^3/uL (0.0-1.1) Eosinophils # (Auto) 0.0 x10^3/uL (0.0-0.7) 0.0 x10^3/uL (0.0-0.7) Basophils # (Auto) 0.0 x10^3/uL (0.0-0.2) 0.0 x10^3/uL (0.0-0.2) Sodium Level 139 mmol/L (136-145) 144 mmol/L (136-145) Potassium Level 3.6 mmol/L (3.5-5.1) 3.9 mmol/L (3.5-5.1) Chloride Level 109 mmol/L (98-107) 113 mmol/L (98-107) Carbon Dioxide Level 19 mmol/L (21-32) 22 mmol/L (21-32) Anion Gap 11 (6-14) 9 (6-14) Blood Urea Nitrogen 41 mg/dL (7-20) 46 mg/dL (7-20) Creatinine 0.6 mg/dL (0.6-1.0) 0.7 mg/dL (0.6-1.0) Estimated GFR (Cockcroft-Gault) 125.6 105.1 Glucose Level 151 mg/dL (70-99) 162 mg/dL (70-99) Calcium Level 8.6 mg/dL (8.5-10.1) 8.6 mg/dL (8.5-10.1) O2 Saturation 98 % (92-99) Arterial Blood pH 7.42 (7.35-7.45) Arterial Blood pCO2 at Patient Temp 29 mmHg (35-46) Arterial Blood pO2 at Patient Temp 115 mmHg (75-108) Arterial Blood HCO3 18 mmol/L (21-28) Arterial Blood Base Excess -5 mmol/L (-3-3) FiO2 35 Vancomycin Level Trough 19.8 mcg/mL (10.0-20.0) Vancomycin Last Dose Date Vancomycin Last Dose Time Test 12/09/16 08:50 O2 Saturation 97 % (92-99) Arterial Blood pH 7.40 (7.35-7.45) Arterial Blood pCO2 at Patient Temp 29 mmHg (35-46) Arterial Blood pO2 at Patient Temp 102 mmHg (75-108) Arterial Blood HCO3 18 mmol/L (21-28) Arterial Blood Base Excess -6 mmol/L (-3-3) FiO2 35 Laboratory Tests Test 12/08/16 17:30 12/09/16 04:00 12/09/16 08:50 Vancomycin Level Trough 19.8 mcg/mL (10.0-20.0) Vancomycin Last Dose Date Vancomycin Last Dose Time White Blood Count 3.2 x10^3/uL (4.0-11.0) Red Blood Count 2.75 x10^6/uL (3.50-5.40) Hemoglobin 8.2 g/dL (12.0-15.5) Hematocrit 24.6 % (36.0-47.0) Mean Corpuscular Volume 89 fL (79-100) Mean Corpuscular Hemoglobin 30 pg (25-35) Mean Corpuscular Hemoglobin Concent 33 g/dL (31-37) Red Cell Distribution Width 15.3 % (11.5-14.5) Platelet Count 43 x10^3/uL (140-400) Neutrophils (%) (Auto) 82 % (31-73) Lymphocytes (%) (Auto) 12 % (24-48) Monocytes (%) (Auto) 6 % (0-9) Eosinophils (%) (Auto) 0 % (0-3) Basophils (%) (Auto) 0 % (0-3) Neutrophils # (Auto) 2.7 x10^3uL (1.8-7.7) Lymphocytes # (Auto) 0.4 x10^3/uL (1.0-4.8) Monocytes # (Auto) 0.2 x10^3/uL (0.0-1.1) Eosinophils # (Auto) 0.0 x10^3/uL (0.0-0.7) Basophils # (Auto) 0.0 x10^3/uL (0.0-0.2) Sodium Level 144 mmol/L (136-145) Potassium Level 3.9 mmol/L (3.5-5.1) Chloride Level 113 mmol/L (98-107) Carbon Dioxide Level 22 mmol/L (21-32) Anion Gap 9 (6-14) Blood Urea Nitrogen 46 mg/dL (7-20) Creatinine 0.7 mg/dL (0.6-1.0) Estimated GFR (Cockcroft-Gault) 105.1 Glucose Level 162 mg/dL (70-99) Calcium Level 8.6 mg/dL (8.5-10.1) O2 Saturation 97 % (92-99) Arterial Blood pH 7.40 (7.35-7.45) Arterial Blood pCO2 at Patient Temp 29 mmHg (35-46) Arterial Blood pO2 at Patient Temp 102 mmHg (75-108) Arterial Blood HCO3 18 mmol/L (21-28) Arterial Blood Base Excess -6 mmol/L (-3-3) FiO2 35 Microbiology 12/06/16 Blood Culture - Final, Complete 12/06/16 Blood Culture Result 1 (LUCINA) - Final, Complete 12/06/16 Antimicrobic Susceptibility - Final, Complete 12/07/16 Gram Stain - Final, Complete 12/06/16 Urine Culture - Final, Complete 12/06/16 Urine Culture Result 1 (LUCINA) - Final, Complete Medications Current Medications Sodium Chloride 1,000 ml @ 1,000 mls/hr 1X ONCE IV Last administered on 16:18; Start 12/06/16 at 16:15; Stop 12/06/16 at 17:14; Status DC Vancomycin HCl (Vanco Per Pharmacy) 1 each PRN DAILY PRN MC SEE COMMENTS Last administered on 12/09/16 09:30; Start 12/06/16 at 17:00 Levofloxacin/ Dextrose 150 ml @ 100 mls/hr 1X ONCE IV Last administered on 20:04; Start 12/06/16 at 17:00; Stop 12/06/16 at 18:29; Status DC Vancomycin HCl 2 gm/Sodium Chloride 500 ml @ 250 mls/hr 1X ONCE IV Last administered on 12/06/16 17:11; Start 12/06/16 at 17:00; Stop 12/06/16 at 18:59 ; Status DC Sodium Chloride 1,000 ml @ 1,000 mls/hr 1X ONCE IV Last administered on 17:09; Start 12/06/16 at 17:00; Stop 12/06/16 at 17:59; Status DC Meropenem 500 mg/ Sodium Chloride 50 ml @ 100 mls/hr Q8HRS IV Last administered on 12/09/16 13:55; Start 12/06/16 at 18:00 Dopamine HCl/ Dextrose 250 ml @ 16.414 mls/ hr 1X ONCE IV Last administered on 12/06/16 17:41; Start 12/06/16 at 17:15; Stop 12/07/16 at 08:28; Status DC Etomidate (Amidate) 20 mg 1X ONCE IV Last administered on 12/06/16 17:19; Start 12/06/16 at 17:15; Stop 12/06/16 at 17:17; Status DC Succinylcholine Chloride (Anectine) 100 mg 1X ONCE IV Last administered on 17:20; Start 12/06/16 at 17:15; Stop 12/06/16 at 17:17; Status DC Vancomycin HCl 1.25 gm/Sodium Chloride 250 ml @ 167 mls/hr Q24H IV Last administered on 12/07/16 18:39; Start 12/07/16 at 17:00; Stop 12/07/16 at 23:00 ; Status DC Vancomycin HCl 1 each 1X ONCE MC ; Start 12/07/16 at 16:30; Stop 12/07/16 at 16 :31; Status Cancel Midazolam HCl 100 ml @ As Directed STK-MED ONCE IV ; Start 12/06/16 at 17:36; Stop 12/06/16 at 17:37; Status DC Midazolam HCl (Versed) 5 mg STK-MED ONCE .ROUTE ; Start 12/06/16 at 17:37; Stop 12/06/16 at 17:38; Status DC Midazolam HCl (Versed) 5 mg PRN Q10MIN PRN IV SEDATION; Start 12/06/16 at 17:45 Hydrocortisone Sodium Succinate (Solu-CORTEF) 100 mg Q8HRS IV Last administered on 12/09/16 13:55; Start 12/06/16 at 18:30 Norepinephrine Bitartrate 16 mg/ Sodium Chloride 266 ml @ 0 mls/hr CONT PRN IV SEE I/O RECORD; Start 12/06/16 at 19:00; Status UNV Pantoprazole Sodium (Protonix Vial) 40 mg DAILYAC IVP Last administered on 12/09 08:04; Start 12/06/16 at 19:30 Acetaminophen (Tylenol) 325 mg PRN Q6HRS PRN PO MILD PAIN / TEMP; Start at 19:00 Hydralazine HCl (Apresoline) 10 mg PRN Q4HRS PRN IVP ELEVATED BP, SEE COMMENTS ; Start 12/06/16 at 19:00 Ondansetron HCl (Zofran) 4 mg PRN Q8HRS PRN IV NAUSEA/VOMITING; Start 12/06/16 at 19:00 Albuterol Sulfate (Ventolin Neb Soln) 2.5 mg PRN Q4HRS PRN NEB SHORTNESS OF BREATH; Start 12/06/16 at 19:00 Norepinephrine Bitartrate 250 ml @ 1.875 mls/ hr CONT PRN IV SEE I/O RECORD Last administered on 12/06/16 19:55; Start 12/06/16 at 19:00 Sodium Chloride 1,000 ml @ 1,000 mls/hr 1X ONCE IV Last administered on 19:56; Start 12/06/16 at 19:15; Stop 12/06/16 at 20:14; Status DC Sodium Chloride 1,000 ml @ 75 mls/hr [id number] IV Last administered on 21:55; Start 12/06/16 at 19:15 Pneumococcal Polyvalent Vaccine (Do NOT chart on this placeholder) 1 each PRN DAILY PRN MC PT UNABLE TO RESPOND; Start 12/07/16 at 09:30; Status Cancel Pneumococcal Polyvalent Vaccine (Pneumovax 23) 0.5 ml ONCE ONCE VAX IM ; Start 12/08/16 at 09:00; Stop 12/08/16 at 09:01; Status DC Albuterol/ Ipratropium (Duoneb) 3 ml RTQID NEB Last administered on 12/09/16 11:53; Start 12/07/16 at 12:00 Midazolam HCl 100 ml @ 0 mls/hr CONT PRN IV SEE I/O RECORD Last administered on 12/07/16 10:29; Start 12/07/16 at 10:15 Fentanyl Citrate (Fentanyl 2ml Vial) 25 mcg PRN Q1HR PRN IV PAIN Last administered on 12/09/16 00:45; Start 12/07/16 at 10:45 Pantoprazole Sodium (Protonix Vial) 40 mg DAILYAC IVP ; Start 12/07/16 at 17:00 ; Status Cancel Vancomycin HCl 1.25 gm/Sodium Chloride 250 ml @ 167 mls/hr Q12H IV Last administered on 12/09/16 06:03; Start 12/08/16 at 06:00 Vancomycin HCl 1 each 1X ONCE MC ; Start 12/08/16 at 17:30; Stop 12/08/16 at 17 :31; Status DC Vancomycin HCl 1 gm/Sodium Chloride 250 ml @ 250 mls/hr Q12H IV ; Start at 18:00; Status Cancel Chlorhexidine Gluconate (Peridex) 15 ml BID SWSP ; Start 12/09/16 at 21:00 Active Scripts Active Oxycodone Hcl 5 Mg Tablet 5 Mg PO PRN Q6HRS PRN Reported Albuterol Sulfate Neb Soln (Albuterol Sulfate) 1.25 Mg/3 Ml Vial.neb 1 Vial NEB Q6HRS Ranitidine Hcl 150 Mg Capsule 75 Mg PO DAILY Ondansetron Hcl 8 Mg Tablet 8 Mg PO DAILY Azithromycin Tablet (Azithromycin) 250 Mg Tablet 250 Mg PO DAILY Bupropion Hcl 100 Mg Tablet 100 Mg PO BID Nasal Allergy [place] (Cromolyn Sodium) 13 Ml [place].pump 13 Ml NS DAILY Gabapentin 300 Mg Capsule 300 Mg PO BID Hydroxyzine Hcl 25 Mg Tablet 25 Mg PO DAILY Nystatin 15 Gm Cream..g. 15 Gm TP BID Duloxetine Hcl 60 Mg Capsule.dr 60 Mg PO DAILY Clonidine Hcl 0.1 Mg Tablet 0.1 Mg PO DAILY Lisinopril 20 Mg Tablet 20 Mg PO DAILY Famciclovir 125 Mg Tablet 125 Mg PO DAILY Ropinirole Hcl 0.25 Mg Tablet 0.25 Mg PO DAILY Hydroxychloroquine Sulfate 200 Mg Tablet 200 Mg PO DAILY Lyrica (Pregabalin) 150 Mg Capsule 150 Mg PO DAILY Furosemide 20 Mg Tablet 20 Mg PO DAILY Alprazolam 0.25 Mg Tablet 0.25 Mg PO Oxycodone Hcl 5 Mg Tablet 5 Mg PO PRN Q4HRS PRN Ibuprofen 400 Mg Tablet 400 Mg PO PRN DAILY PRN Multivitamins (Multivitamin) 1 Each Tablet 1 Each PO DAILY Oxycodone-Acetaminophen 10-325 (Oxycodone Hcl/Acetaminophen) 1 Each Tablet 1 Each PO PRN Q4-6HRS PRN Plaquenil (Hydroxychloroquine Sulfate) 200 Mg Tablet 200 Mg PO BID Vitals/I & O Vital Sign - Last 24 Hours 12/08/16 12/08/16 12/08/16 12/08/16 15:00 16:00 16:08 17:00 Pulse 80 78 76 Resp 22 27 28 B/P (MAP) 99/59 (72) 111/66 (81) 116/63 (80) Pulse Ox 94 95 100 O2 Delivery Ventilator Ventilator Mechanical Ventilator Ventilator 12/08/16 12/08/16 12/08/16 12/08/16 18:00 19:00 20:00 20:00 Temp 97.6 97.6 Pulse 79 80 82 Resp 24 22 22 B/P (MAP) 112/62 (79) 114/83 (93) 120/67 (84) Pulse Ox 100 99 100 O2 Delivery Ventilator Ventilator Mechanical Ventilator 12/08/16 12/08/16 12/08/16 12/08/16 20:22 21:00 22:00 23:00 Temp 98.2 98.2 Pulse 86 83 84 Resp 23 24 24 B/P (MAP) 116/62 (80) 120/75 (90) 121/74 (90) Pulse Ox 100 97 96 100 O2 Delivery Ventilator Ventilator Ventilator Ventilator 12/08/16 12/09/16 12/09/16 12/09/16 23:28 00:00 00:00 00:45 Pulse 82 Resp 16 24 B/P (MAP) 124/73 (90) Pulse Ox 100 100 100 O2 Delivery Ventilator Ventilator Mechanical Ventilator Ventilator 12/09/16 12/09/16 12/09/16 12/09/16 01:00 01:15 01:50 02:00 Temp 98.5 98.5 Pulse 81 83 Resp 21 21 B/P (MAP) 135/64 (87) 139/73 (95) Pulse Ox 100 100 100 O2 Delivery Ventilator Ventilator Ventilator Ventilator 12/09/16 12/09/16 12/09/16 12/09/16 03:00 03:35 04:00 04:00 Temp 98.5 98.5 Pulse 88 87 Resp 24 B/P (MAP) 133/76 (95) 126/75 (92) Pulse Ox 100 100 100 O2 Delivery Ventilator Ventilator Mechanical Ventilator Ventilator 12/09/16 12/09/16 12/09/16 12/09/16 05:00 05:44 06:00 07:00 Pulse 90 88 84 Resp 13 16 16 B/P (MAP) 124/64 (84) 144/79 (100) 134/96 (109) Pulse Ox 100 100 100 100 O2 Delivery Ventilator Ventilator Ventilator intubated 12/09/16 12/09/16 12/09/16 12/09/16 08:00 08:00 08:46 09:00 Temp 97.0 97.0 Pulse 88 90 Resp 16 16 B/P (MAP) 159/96 (117) 156/103 (120) Pulse Ox 100 100 100 O2 Delivery intubated Mechanical Ventilator Ventilator 12/09/16 12/09/16 12/09/16 12/09/16 10:00 11:00 11:53 12:00 Pulse 89 90 Resp 24 20 B/P (MAP) 150/84 (106) 143/88 (106) Pulse Ox 100 99 97 O2 Delivery Ventilator Mechanical Ventilator 12/09/16 12/09/16 12/09/16 12/09/16 12:00 13:00 13:12 14:00 Temp 98.1 98.1 Pulse 80 95 89 Resp 16 16 16 B/P (MAP) 137/86 (103) 137/77 (97) 133/75 (94) Pulse Ox 98 100 100 100 O2 Delivery Ventilator Ventilator Ventilator Intake and Output 12/08/16 12/08/16 12/09/16 15:00 23:00 07:00 Intake Total 250 ml 1028.73 ml 1367 ml Output Total 135 ml 670 ml 370 ml Balance 115 ml 358.73 ml 997 ml Nutrition Consultation Dietary Evaluation: Recommendations by RD: Increase Calorie Intake Comments: Rec. advance to a regular diet when extubated and when medically appropriate Expected Outcomes/Goals: meet 75% estimated nutrition needs Malnutrition Findings: Reduced Electrotype Molder Strength: N/A Reduced Electrotype Molder Strength (Non-Sev: N/A Malnutrition related to morbid: No Weight Status: Obese REDD CAN MD Dec 09, 2016 14:30
--- NOTE | 2016-12-09 15:03 | PDOC ---
PULMONARY PROGRESS NOTES Subjective PT AWAKE AND ALERT Vitals Vital Signs Date Time Temp Pulse Resp B/P (MAP) Pulse Ox O2 Delivery O2 Flow Rate FiO2 12/09/16 14:00 89 16 133/75 (94) 100 Ventilator 12/09/16 12:00 98.1 98.1 HEENT: Other (nc at perrl, orally intubated, nose clear... neck no lap, no thyromegaly) Lungs: Clear Cardiovascular: S1, S2 Abdomen: Soft, Non-tender, Other (no mass) Neuro Exam: Alert Extremities: Other (edema) Skin: Warm Labs Laboratory Tests Test 12/08/16 03:38 12/08/16 08:00 12/08/16 17:30 12/09/16 04:00 White Blood Count 2.7 x10^3/uL (4.0-11.0) 3.2 x10^3/uL (4.0-11.0) Red Blood Count 2.56 x10^6/uL (3.50-5.40) 2.75 x10^6/uL (3.50-5.40) Hemoglobin 7.7 g/dL (12.0-15.5) 8.2 g/dL (12.0-15.5) Hematocrit 23.1 % (36.0-47.0) 24.6 % (36.0-47.0) Mean Corpuscular Volume 90 fL (79-100) 89 fL (79-100) Mean Corpuscular Hemoglobin 30 pg (25-35) 30 pg (25-35) Mean Corpuscular Hemoglobin Concent 34 g/dL (31-37) 33 g/dL (31-37) Red Cell Distribution Width 14.6 % (11.5-14.5) 15.3 % (11.5-14.5) Platelet Count 38 x10^3/uL (140-400) 43 x10^3/uL (140-400) Neutrophils (%) (Auto) 79 % (31-73) 82 % (31-73) Lymphocytes (%) (Auto) 13 % (24-48) 12 % (24-48) Monocytes (%) (Auto) 7 % (0-9) 6 % (0-9) Eosinophils (%) (Auto) 0 % (0-3) 0 % (0-3) Basophils (%) (Auto) 0 % (0-3) 0 % (0-3) Neutrophils # (Auto) 2.1 x10^3uL (1.8-7.7) 2.7 x10^3uL (1.8-7.7) Lymphocytes # (Auto) 0.3 x10^3/uL (1.0-4.8) 0.4 x10^3/uL (1.0-4.8) Monocytes # (Auto) 0.2 x10^3/uL (0.0-1.1) 0.2 x10^3/uL (0.0-1.1) Eosinophils # (Auto) 0.0 x10^3/uL (0.0-0.7) 0.0 x10^3/uL (0.0-0.7) Basophils # (Auto) 0.0 x10^3/uL (0.0-0.2) 0.0 x10^3/uL (0.0-0.2) Sodium Level 139 mmol/L (136-145) 144 mmol/L (136-145) Potassium Level 3.6 mmol/L (3.5-5.1) 3.9 mmol/L (3.5-5.1) Chloride Level 109 mmol/L (98-107) 113 mmol/L (98-107) Carbon Dioxide Level 19 mmol/L (21-32) 22 mmol/L (21-32) Anion Gap 11 (6-14) 9 (6-14) Blood Urea Nitrogen 41 mg/dL (7-20) 46 mg/dL (7-20) Creatinine 0.6 mg/dL (0.6-1.0) 0.7 mg/dL (0.6-1.0) Estimated GFR (Cockcroft-Gault) 125.6 105.1 Glucose Level 151 mg/dL (70-99) 162 mg/dL (70-99) Calcium Level 8.6 mg/dL (8.5-10.1) 8.6 mg/dL (8.5-10.1) O2 Saturation 98 % (92-99) Arterial Blood pH 7.42 (7.35-7.45) Arterial Blood pCO2 at Patient Temp 29 mmHg (35-46) Arterial Blood pO2 at Patient Temp 115 mmHg (75-108) Arterial Blood HCO3 18 mmol/L (21-28) Arterial Blood Base Excess -5 mmol/L (-3-3) FiO2 35 Vancomycin Level Trough 19.8 mcg/mL (10.0-20.0) Vancomycin Last Dose Date Vancomycin Last Dose Time Test 12/09/16 08:50 O2 Saturation 97 % (92-99) Arterial Blood pH 7.40 (7.35-7.45) Arterial Blood pCO2 at Patient Temp 29 mmHg (35-46) Arterial Blood pO2 at Patient Temp 102 mmHg (75-108) Arterial Blood HCO3 18 mmol/L (21-28) Arterial Blood Base Excess -6 mmol/L (-3-3) FiO2 35 Laboratory Tests Test 12/08/16 17:30 12/09/16 04:00 12/09/16 08:50 Vancomycin Level Trough 19.8 mcg/mL (10.0-20.0) Vancomycin Last Dose Date Vancomycin Last Dose Time White Blood Count 3.2 x10^3/uL (4.0-11.0) Red Blood Count 2.75 x10^6/uL (3.50-5.40) Hemoglobin 8.2 g/dL (12.0-15.5) Hematocrit 24.6 % (36.0-47.0) Mean Corpuscular Volume 89 fL (79-100) Mean Corpuscular Hemoglobin 30 pg (25-35) Mean Corpuscular Hemoglobin Concent 33 g/dL (31-37) Red Cell Distribution Width 15.3 % (11.5-14.5) Platelet Count 43 x10^3/uL (140-400) Neutrophils (%) (Auto) 82 % (31-73) Lymphocytes (%) (Auto) 12 % (24-48) Monocytes (%) (Auto) 6 % (0-9) Eosinophils (%) (Auto) 0 % (0-3) Basophils (%) (Auto) 0 % (0-3) Neutrophils # (Auto) 2.7 x10^3uL (1.8-7.7) Lymphocytes # (Auto) 0.4 x10^3/uL (1.0-4.8) Monocytes # (Auto) 0.2 x10^3/uL (0.0-1.1) Eosinophils # (Auto) 0.0 x10^3/uL (0.0-0.7) Basophils # (Auto) 0.0 x10^3/uL (0.0-0.2) Sodium Level 144 mmol/L (136-145) Potassium Level 3.9 mmol/L (3.5-5.1) Chloride Level 113 mmol/L (98-107) Carbon Dioxide Level 22 mmol/L (21-32) Anion Gap 9 (6-14) Blood Urea Nitrogen 46 mg/dL (7-20) Creatinine 0.7 mg/dL (0.6-1.0) Estimated GFR (Cockcroft-Gault) 105.1 Glucose Level 162 mg/dL (70-99) Calcium Level 8.6 mg/dL (8.5-10.1) O2 Saturation 97 % (92-99) Arterial Blood pH 7.40 (7.35-7.45) Arterial Blood pCO2 at Patient Temp 29 mmHg (35-46) Arterial Blood pO2 at Patient Temp 102 mmHg (75-108) Arterial Blood HCO3 18 mmol/L (21-28) Arterial Blood Base Excess -6 mmol/L (-3-3) FiO2 35 Medications Active Scripts Medications Dose Route/Sig Max Daily Dose Days Date Category Oxycodone Hcl 5 Mg Tablet 5 Mg PO PRN Q6HRS PRN 11/28/16 Rx Albuterol Sulfate Neb Soln (Albuterol Sulfate) 1.25 Mg/3 Ml Vial.neb 1 Vial NEB Q6HRS 11/25/16 Reported Ranitidine Hcl 150 Mg Capsule 75 Mg PO DAILY 11/25/16 Reported Ondansetron Hcl 8 Mg Tablet 8 Mg PO DAILY 11/25/16 Reported Azithromycin Tablet (Azithromycin) 250 Mg Tablet 250 Mg PO DAILY 11/25/16 Reported Bupropion Hcl 100 Mg Tablet 100 Mg PO BID 11/25/16 Reported Nasal Allergy [place] (Cromolyn Sodium) 13 Ml [place].pump 13 Ml NS DAILY 11/25/16 Reported Gabapentin 300 Mg Capsule 300 Mg PO BID 11/25/16 Reported Hydroxyzine Hcl 25 Mg Tablet 25 Mg PO DAILY 11/25/16 Reported Nystatin 15 Gm Cream..g. 15 Gm TP BID 11/25/16 Reported Duloxetine Hcl 60 Mg Capsule.dr 60 Mg PO DAILY 11/25/16 Reported Clonidine Hcl 0.1 Mg Tablet 0.1 Mg PO DAILY 11/25/16 Reported Lisinopril 20 Mg Tablet 20 Mg PO DAILY 11/25/16 Reported Famciclovir 125 Mg Tablet 125 Mg PO DAILY 11/25/16 Reported Ropinirole Hcl 0.25 Mg Tablet 0.25 Mg PO DAILY 11/25/16 Reported Hydroxychloroquine Sulfate 200 Mg Tablet 200 Mg PO DAILY 11/25/16 Reported Lyrica (Pregabalin) 150 Mg Capsule 150 Mg PO DAILY 11/25/16 Reported Furosemide 20 Mg Tablet 20 Mg PO DAILY 11/25/16 Reported Alprazolam 0.25 Mg Tablet 0.25 Mg PO 11/25/16 Reported Oxycodone Hcl 5 Mg Tablet 5 Mg PO PRN Q4HRS PRN 11/25/16 Reported Ibuprofen 400 Mg Tablet 400 Mg PO PRN DAILY PRN 05/11/15 Reported Multivitamins (Multivitamin) 1 Each Tablet 1 Each PO DAILY 05/11/15 Reported Oxycodone-Acetaminophen 10-325 (Oxycodone Hcl/Acetaminophen) 1 Each Tablet 1 Each PO PRN Q4-6HRS PRN 05/11/15 Reported Plaquenil (Hydroxychloroquine Sulfate) 200 Mg Tablet 200 Mg PO BID 08/19/13 Reported Impression . 1. Acute respiratory failure, multifactorial in etiology. 2. Abnormal chest x-ray could be secondary to volume overload, congestive heart failure or pneumonia. 3. Septic shock, bacteremia, g + cocci 4. Hypotension, resolved. 5. Pancytopenia. 6. Systemic lupus erythematosus, immunocompromised. 7. Hyponatremia. 8. Acute kidney injury. 9. History of breast cancer. 10. Hepatitis C. 11. Gastroesophageal reflux disease. 12. MRSA colonization. Plan . PT DID WELL ON TRIAL SHE IS FOLLOWING COMMANDS WILL PROCEED WITH EXTUBATION D/W RT 1. Titrate FiO2 to keep O2 saturation 94%. 2. TRIAL TODAY 3. ANTIBX PER ID 4. Follow up sheikh cultures. 5. Protonix for stress ulcer prophylaxis. 6. Start DuoNeb. 7. SCDs. 8. NO CXR TODAY 9. solucortef DECREASE TO Q12 YASMANY HENSON MD Dec 09, 2016 15:03
[2016-12-09] MEDS ORDERED: AMINO AC 3%/ELECTROLYTE/GLYCER 1,000 ML IV SCH (17:00)
[2016-12-09 18:34] LABS: FIO2 ABG 35
[2016-12-09] MEDS: buPROPion 100 MG TABLET PO SCH (20:17)
[2016-12-09] MEDS: rOPINIRole 0.25 MG TABLET. PO SCH (20:17)
[2016-12-09] MEDS ORDERED: CHLORHEXIDINE 0.12% 15 ML MOUTHWASH. SWSP SCH (21:00)
[2016-12-09] MEDS ORDERED: GABAPENTIN 300 MG CAPSULE. PO SCH (21:00)
[2016-12-10] VITALS (23 sets, daily range): BP systolic 80–168; BP diastolic 37–95
[2016-12-10] MEDS: fentaNYL PF VIAL 100 MCG/2 ML VIAL IV PRN ×4 (02:52→20:35)
[2016-12-10] MEDS: VANCOMYCIN 1.25 GM in IV NORMAL SALINE 250ML 250 ML IV SCH ×2 (06:00→18:19)
[2016-12-10] MEDS: hydrALAZINE 20 MG/ML VIAL. IVP PRN (07:29)
[2016-12-10] MEDS: MEROPENEM 500 MG in IV NORMAL SALINE 50ML 50 ML IV SCH (07:30)
[2016-12-10] MEDS: IPRATRPIUM/ALBUTEROL 0.5/2.5MG 3 ML NEBU. NEB SCH ×4 (07:38→19:38)
[2016-12-10] MEDS ORDERED: RACEPINEPHRINE 2.25% 0.5 ML NEBU. NEB ONE (07:45)
--- NOTE | 2016-12-10 08:13 | PDOC ---
Infectious Disease Note Subjective Subjective on bipap, extubated yesterday ROS ROS unable to do Vital Sign Vital Signs Vital Signs Date Time Temp Pulse Resp B/P (MAP) Pulse Ox O2 Delivery O2 Flow Rate FiO2 12/10/16 07:52 Nasal Cannula 4.0 12/10/16 07:29 28 12/10/16 07:29 122 165/109 12/10/16 06:00 91 12/10/16 04:00 98.0 98.0 Physical Exam PHYSICAL EXAM GENERAL: mod resp distress, on bipap HEENT: PERRL, OC/OP NECK: Supple, no JVD, no LN LUNGS: Clear HEART: S1S2, no gallop, no murmur ABD: Soft, NT, no organomegaly, no rebound EXT: No edema, no cyanosis [employer]: alert, moves all ext SKIN: No rash IV: ok Labs Lab Laboratory Tests Test 12/09/16 08:50 12/09/16 13:40 O2 Saturation 97 % (92-99) 98 % (92-99) Arterial Blood pH 7.40 (7.35-7.45) 7.40 (7.35-7.45) Arterial Blood pCO2 at Patient Temp 29 mmHg (35-46) 30 mmHg (35-46) Arterial Blood pO2 at Patient Temp 102 mmHg (75-108) 123 mmHg (75-108) Arterial Blood HCO3 18 mmol/L (21-28) 18 mmol/L (21-28) Arterial Blood Base Excess -6 mmol/L (-3-3) -6 mmol/L (-3-3) FiO2 35 35 Micro BC + MRSA sputum with staph a Objective Assessment Sepsis. POA Hypotension, now off pressor Pancytopenia PCN allergy, reaction unknown Acute encephalopathy [place] Acute respiratory failure h/o breast cancer, s/p chemo. Port still in place Lupus on Plaquenil Recent E. coli UTI MRSA nares, 11/25, 12/06 Diarrhea. C. diff. neg 12/06 BC + MRSA Plan Plan of Care cont Vanc, d/c meropenem Monitor WBC, Cr and temp AMANDA MARC MD Dec 10, 2016 08:13
[2016-12-10] MEDS: PANTOPRAZOLE IV PUSH 40 MG VIAL. IVP SCH (08:34)
[2016-12-10] MEDS: HYDROCORTISONE SOD SUCC/PF 100 MG/2 ML VIAL. IV SCH ×2 (08:34→20:34)
[2016-12-10] MEDS: PREGABALIN 75 MG CAPSULE PO SCH (08:35)
[2016-12-10] MEDS: buPROPion 100 MG TABLET PO SCH ×2 (08:35→20:34)
[2016-12-10] MEDS: ALPRAZolam 0.25 MG TABLET PO SCH (08:35)
--- NOTE | 2016-12-10 08:48 | PDOC ---
PULMONARY PROGRESS NOTES Subjective Pt had some resp distress earlier needed to be re intubated by anesthesia Vitals Vital Signs Date Time Temp Pulse Resp B/P (MAP) Pulse Ox O2 Delivery O2 Flow Rate FiO2 12/10/16 08:34 37 96 BiPAP/CPAP 12/10/16 07:52 4.0 12/10/16 07:29 122 165/109 12/10/16 04:00 98.0 98.0 HEENT: Other (nc at perrl, orally intubated, nose clear... neck no lap, no thyromegaly) Lungs: Clear Cardiovascular: S1, S2 Abdomen: Soft, Non-tender, Other (no mass) Neuro Exam: Alert Extremities: Other (edema) Skin: Warm Labs Laboratory Tests Test 12/08/16 17:30 12/09/16 04:00 12/09/16 08:50 12/09/16 13:40 Vancomycin Level Trough 19.8 mcg/mL (10.0-20.0) Vancomycin Last Dose Date Vancomycin Last Dose Time White Blood Count 3.2 x10^3/uL (4.0-11.0) Red Blood Count 2.75 x10^6/uL (3.50-5.40) Hemoglobin 8.2 g/dL (12.0-15.5) Hematocrit 24.6 % (36.0-47.0) Mean Corpuscular Volume 89 fL (79-100) Mean Corpuscular Hemoglobin 30 pg (25-35) Mean Corpuscular Hemoglobin Concent 33 g/dL (31-37) Red Cell Distribution Width 15.3 % (11.5-14.5) Platelet Count 43 x10^3/uL (140-400) Neutrophils (%) (Auto) 82 % (31-73) Lymphocytes (%) (Auto) 12 % (24-48) Monocytes (%) (Auto) 6 % (0-9) Eosinophils (%) (Auto) 0 % (0-3) Basophils (%) (Auto) 0 % (0-3) Neutrophils # (Auto) 2.7 x10^3uL (1.8-7.7) Lymphocytes # (Auto) 0.4 x10^3/uL (1.0-4.8) Monocytes # (Auto) 0.2 x10^3/uL (0.0-1.1) Eosinophils # (Auto) 0.0 x10^3/uL (0.0-0.7) Basophils # (Auto) 0.0 x10^3/uL (0.0-0.2) Sodium Level 144 mmol/L (136-145) Potassium Level 3.9 mmol/L (3.5-5.1) Chloride Level 113 mmol/L (98-107) Carbon Dioxide Level 22 mmol/L (21-32) Anion Gap 9 (6-14) Blood Urea Nitrogen 46 mg/dL (7-20) Creatinine 0.7 mg/dL (0.6-1.0) Estimated GFR (Cockcroft-Gault) 105.1 Glucose Level 162 mg/dL (70-99) Calcium Level 8.6 mg/dL (8.5-10.1) O2 Saturation 97 % (92-99) 98 % (92-99) Arterial Blood pH 7.40 (7.35-7.45) 7.40 (7.35-7.45) Arterial Blood pCO2 at Patient Temp 29 mmHg (35-46) 30 mmHg (35-46) Arterial Blood pO2 at Patient Temp 102 mmHg (75-108) 123 mmHg (75-108) Arterial Blood HCO3 18 mmol/L (21-28) 18 mmol/L (21-28) Arterial Blood Base Excess -6 mmol/L (-3-3) -6 mmol/L (-3-3) FiO2 35 35 Laboratory Tests Test 12/09/16 08:50 12/09/16 13:40 O2 Saturation 97 % (92-99) 98 % (92-99) Arterial Blood pH 7.40 (7.35-7.45) 7.40 (7.35-7.45) Arterial Blood pCO2 at Patient Temp 29 mmHg (35-46) 30 mmHg (35-46) Arterial Blood pO2 at Patient Temp 102 mmHg (75-108) 123 mmHg (75-108) Arterial Blood HCO3 18 mmol/L (21-28) 18 mmol/L (21-28) Arterial Blood Base Excess -6 mmol/L (-3-3) -6 mmol/L (-3-3) FiO2 35 35 Medications Active Scripts Medications Dose Route/Sig Max Daily Dose Days Date Category Oxycodone Hcl 5 Mg Tablet 5 Mg PO PRN Q6HRS PRN 11/28/16 Rx Albuterol Sulfate Neb Soln (Albuterol Sulfate) 1.25 Mg/3 Ml Vial.neb 1 Vial NEB Q6HRS 11/25/16 Reported Ranitidine Hcl 150 Mg Capsule 75 Mg PO DAILY 11/25/16 Reported Ondansetron Hcl 8 Mg Tablet 8 Mg PO DAILY 11/25/16 Reported Azithromycin Tablet (Azithromycin) 250 Mg Tablet 250 Mg PO DAILY 11/25/16 Reported Bupropion Hcl 100 Mg Tablet 100 Mg PO BID 11/25/16 Reported Nasal Allergy [place] (Cromolyn Sodium) 13 Ml [place].pump 13 Ml NS DAILY 11/25/16 Reported Gabapentin 300 Mg Capsule 300 Mg PO BID 11/25/16 Reported Hydroxyzine Hcl 25 Mg Tablet 25 Mg PO DAILY 11/25/16 Reported Nystatin 15 Gm Cream..g. 15 Gm TP BID 11/25/16 Reported Duloxetine Hcl 60 Mg Capsule.dr 60 Mg PO DAILY 11/25/16 Reported Clonidine Hcl 0.1 Mg Tablet 0.1 Mg PO DAILY 11/25/16 Reported Lisinopril 20 Mg Tablet 20 Mg PO DAILY 11/25/16 Reported Famciclovir 125 Mg Tablet 125 Mg PO DAILY 11/25/16 Reported Ropinirole Hcl 0.25 Mg Tablet 0.25 Mg PO DAILY 11/25/16 Reported Hydroxychloroquine Sulfate 200 Mg Tablet 200 Mg PO DAILY 11/25/16 Reported Lyrica (Pregabalin) 150 Mg Capsule 150 Mg PO DAILY 11/25/16 Reported Furosemide 20 Mg Tablet 20 Mg PO DAILY 11/25/16 Reported Alprazolam 0.25 Mg Tablet 0.25 Mg PO 11/25/16 Reported Oxycodone Hcl 5 Mg Tablet 5 Mg PO PRN Q4HRS PRN 11/25/16 Reported Ibuprofen 400 Mg Tablet 400 Mg PO PRN DAILY PRN 05/11/15 Reported Multivitamins (Multivitamin) 1 Each Tablet 1 Each PO DAILY 05/11/15 Reported Oxycodone-Acetaminophen 10-325 (Oxycodone Hcl/Acetaminophen) 1 Each Tablet 1 Each PO PRN Q4-6HRS PRN 05/11/15 Reported Plaquenil (Hydroxychloroquine Sulfate) 200 Mg Tablet 200 Mg PO BID 08/19/13 Reported Comments cxr bilateral infiltrates no change Impression . 1. Acute respiratory failure, multifactorial in etiology. 2. Abnormal chest x-ray could be secondary to volume overload, congestive heart failure or pneumonia. 3. Septic shock, bacteremia, g + cocci 4. Hypotension, resolved. 5. Pancytopenia. 6. Systemic lupus erythematosus, immunocompromised. 7. Hyponatremia. 8. Acute kidney injury. 9. History of breast cancer. 10. Hepatitis C. 11. Gastroesophageal reflux disease. 12. MRSA colonization. Plan . REINTUBATED 12/10 REPEAT ABG ON VENT D/W RT/RN RESTART TUBE FEEDING 1. Titrate FiO2 to keep O2 saturation 94%. 2. TRIAL TODAY 3. ANTIBX PER ID 4. Follow up sheikh cultures. 5. Protonix for stress ulcer prophylaxis. 6. Start DuoNeb. 7. SCDs. 8. DAILY CXR 9. solucortef DECREASE TO Q12 YASMANY HENSON MD Dec 10, 2016 08:48
[2016-12-10 09:08] LABS: HCO3 ABG 18 mmol/L (21-28); PO2 ABG 96 mmHg (75-108); SAT O2 ABG 92 % (92-99)
--- NOTE | 2016-12-10 09:08 | RAD ---
Indication difficulty breathing. A single view of the chest was obtained and is compared to a study 2 days previously. There is unchanged mild cardiomegaly. There are background changes suggesting congestive heart failure slightly worse than on the previous study. There are probable tiny pleural effusions. A consolidated pneumonia is not seen. A Port-A-Cath is noted. Endotracheal tube has been removed. IMPRESSION: Probable background changes of mild congestive heart failure. Small pleural effusions, similar.
[2016-12-10 09:11] LABS: PCO2 ABG 70 mmHg (35-46); PH ABG 7.03 (7.35-7.45)
[2016-12-10 09:12] LABS: FIO2 ABG 60
[2016-12-10 09:37] LABS: CALCIUM 8.7 mg/dL (8.5-10.1); GFR 69.7; POTASSIUM 5.2 mmol/L (3.5-5.1)
[2016-12-10 09:38] LABS: BASO % 0 % (0-3); EOS % 1 % (0-3); HEMATOCRIT 34.5 % (36.0-47.0); LYMPH # 1.7 x10^3/uL (1.0-4.8); LYMPH % 20 % (24-48); MEAN CORPUSCULAR HEMOGLOBIN 30 pg (25-35); MEAN CORPUSCULAR HGB CONC 33 g/dL (31-37); MEAN CORPUSCULAR VOLUME 93 fL (79-100); MONO % 1 % (0-9); NEUT % 78 % (31-73); PLATELET COUNT 62 x10^3/uL (140-400); RED BLOOD COUNT 3.72 x10^6/uL (3.50-5.40); RED CELL DISTRIBUTION WIDTH 15.8 % (11.5-14.5); WHITE BLOOD COUNT 8.4 x10^3/uL (4.0-11.0)
[2016-12-10 09:39] LABS: HEMOGLOBIN 11.2 g/dL (12.0-15.5)
[2016-12-10] MEDS: VANCOMYCIN PER PHARMACY MC PRN (10:04)
[2016-12-10] MEDS ORDERED: SUCCINYLCHOLINE 200 MG/10 ML VIAL. ONE (10:28)
[2016-12-10] MEDS ORDERED: PROPOFOL 100 ML IV ONE (10:28)
--- NOTE | 2016-12-10 11:15 | RAD ---
Indication respiratory failure. A single view of the chest was obtained at 1056 and is compared to a study approximately 4 hours earlier. Heart size is unchanged. Patchy pulmonary infiltrates persist and appear similar. Small pleural effusions appear similar. Left-sided Port-A-Cath is again noted. Relative to the previous exam an endotracheal tube has been passed which is appropriately positioned above the nunu. Nasogastric tube has its tip in the antrum of the stomach. Note is made of distention of the stomach with air. IMPRESSION: No significant change in the appearance of the chest. Interval placement of endotracheal and nasogastric tubes which appear appropriately placed
--- NOTE | 2016-12-10 11:18 | PDOC ---
PROGRESS NOTES Chief Complaint Chief Complaint cc: hypotension 1. Septic Shock, MRSA bacteremia, nares + MRSA, septic: off Levophed, on IV hydration, Vancomycin, Naresh dosing. follow blood cx. GPC 2. Pancytopenia: monitor, neutropenic precautions, monitor, hematology consulted, wbc up due to steroids 3. Acute respiratory failure on Mechan[employer] ventilation: extubated and re intubated today. 4. Malnutrition: on PPN, change to tube feeds, nutrition consultation 5. Lupus, immuno suppressive state. 6. Recently treated urinary tract infection, Escherichia coli. 7. Hyponatremia.:resolved 5. mild hyperkalemia: jamie gluconate and iv Lasix Prognosis: guarded, critical condition, no family at bedside. Vitals Vitals Vital Signs Date Time Temp Pulse Resp B/P (MAP) Pulse Ox O2 Delivery O2 Flow Rate FiO2 12/10/16 10:41 99 Ventilator 12/10/16 10:00 117 34 104/52 (69) 12/10/16 08:00 97.3 4.0 97.3 Physical Exam General: Other (sedated) Heart: Normal S1, Normal S2 Lungs: Clear, Other (rales) Abdomen: Normal bowel sounds, Soft Extremities: No clubbing Skin: Other Labs LABS Laboratory Tests Test 12/09/16 13:40 12/10/16 09:00 12/10/16 09:20 O2 Saturation 98 % (92-99) 92 % (92-99) Arterial Blood pH 7.40 (7.35-7.45) 7.03 (7.35-7.45) Arterial Blood pCO2 at Patient Temp 30 mmHg (35-46) 70 mmHg (35-46) Arterial Blood pO2 at Patient Temp 123 mmHg (75-108) 96 mmHg (75-108) Arterial Blood HCO3 18 mmol/L (21-28) 18 mmol/L (21-28) Arterial Blood Base Excess -6 mmol/L (-3-3) -13 mmol/L (-3-3) FiO2 35 60 White Blood Count 8.4 x10^3/uL (4.0-11.0) Red Blood Count 3.72 x10^6/uL (3.50-5.40) Hemoglobin 11.2 g/dL (12.0-15.5) Hematocrit 34.5 % (36.0-47.0) Mean Corpuscular Volume 93 fL (79-100) Mean Corpuscular Hemoglobin 30 pg (25-35) Mean Corpuscular Hemoglobin Concent 33 g/dL (31-37) Red Cell Distribution Width 15.8 % (11.5-14.5) Platelet Count 62 x10^3/uL (140-400) Neutrophils (%) (Auto) 78 % (31-73) Lymphocytes (%) (Auto) 20 % (24-48) Monocytes (%) (Auto) 1 % (0-9) Eosinophils (%) (Auto) 1 % (0-3) Basophils (%) (Auto) 0 % (0-3) Neutrophils # (Auto) 6.5 x10^3uL (1.8-7.7) Lymphocytes # (Auto) 1.7 x10^3/uL (1.0-4.8) Monocytes # (Auto) 0.1 x10^3/uL (0.0-1.1) Eosinophils # (Auto) 0.1 x10^3/uL (0.0-0.7) Basophils # (Auto) 0.0 x10^3/uL (0.0-0.2) Sodium Level 144 mmol/L (136-145) Potassium Level 5.2 mmol/L (3.5-5.1) Chloride Level 114 mmol/L (98-107) Carbon Dioxide Level 21 mmol/L (21-32) Anion Gap 9 (6-14) Blood Urea Nitrogen 49 mg/dL (7-20) Creatinine 1.0 mg/dL (0.6-1.0) Estimated GFR (Cockcroft-Gault) 69.7 Glucose Level 306 mg/dL (70-99) Calcium Level 8.7 mg/dL (8.5-10.1) Assessment and Plan Assessmemt and Plan Problems Medical Problems: (1) Respiratory failure Status: Acute Problems: Comment Review of Relevant I have reviewed the following items anselmo (where applicable) has been applied. Labs Laboratory Tests Test 12/08/16 17:30 12/09/16 04:00 12/09/16 08:50 12/09/16 13:40 Vancomycin Level Trough 19.8 mcg/mL (10.0-20.0) Vancomycin Last Dose Date Vancomycin Last Dose Time White Blood Count 3.2 x10^3/uL (4.0-11.0) Red Blood Count 2.75 x10^6/uL (3.50-5.40) Hemoglobin 8.2 g/dL (12.0-15.5) Hematocrit 24.6 % (36.0-47.0) Mean Corpuscular Volume 89 fL (79-100) Mean Corpuscular Hemoglobin 30 pg (25-35) Mean Corpuscular Hemoglobin Concent 33 g/dL (31-37) Red Cell Distribution Width 15.3 % (11.5-14.5) Platelet Count 43 x10^3/uL (140-400) Neutrophils (%) (Auto) 82 % (31-73) Lymphocytes (%) (Auto) 12 % (24-48) Monocytes (%) (Auto) 6 % (0-9) Eosinophils (%) (Auto) 0 % (0-3) Basophils (%) (Auto) 0 % (0-3) Neutrophils # (Auto) 2.7 x10^3uL (1.8-7.7) Lymphocytes # (Auto) 0.4 x10^3/uL (1.0-4.8) Monocytes # (Auto) 0.2 x10^3/uL (0.0-1.1) Eosinophils # (Auto) 0.0 x10^3/uL (0.0-0.7) Basophils # (Auto) 0.0 x10^3/uL (0.0-0.2) Sodium Level 144 mmol/L (136-145) Potassium Level 3.9 mmol/L (3.5-5.1) Chloride Level 113 mmol/L (98-107) Carbon Dioxide Level 22 mmol/L (21-32) Anion Gap 9 (6-14) Blood Urea Nitrogen 46 mg/dL (7-20) Creatinine 0.7 mg/dL (0.6-1.0) Estimated GFR (Cockcroft-Gault) 105.1 Glucose Level 162 mg/dL (70-99) Calcium Level 8.6 mg/dL (8.5-10.1) O2 Saturation 97 % (92-99) 98 % (92-99) Arterial Blood pH 7.40 (7.35-7.45) 7.40 (7.35-7.45) Arterial Blood pCO2 at Patient Temp 29 mmHg (35-46) 30 mmHg (35-46) Arterial Blood pO2 at Patient Temp 102 mmHg (75-108) 123 mmHg (75-108) Arterial Blood HCO3 18 mmol/L (21-28) 18 mmol/L (21-28) Arterial Blood Base Excess -6 mmol/L (-3-3) -6 mmol/L (-3-3) FiO2 35 35 Test 12/10/16 09:00 12/10/16 09:20 O2 Saturation 92 % (92-99) Arterial Blood pH 7.03 (7.35-7.45) Arterial Blood pCO2 at Patient Temp 70 mmHg (35-46) Arterial Blood pO2 at Patient Temp 96 mmHg (75-108) Arterial Blood HCO3 18 mmol/L (21-28) Arterial Blood Base Excess -13 mmol/L (-3-3) FiO2 60 White Blood Count 8.4 x10^3/uL (4.0-11.0) Red Blood Count 3.72 x10^6/uL (3.50-5.40) Hemoglobin 11.2 g/dL (12.0-15.5) Hematocrit 34.5 % (36.0-47.0) Mean Corpuscular Volume 93 fL (79-100) Mean Corpuscular Hemoglobin 30 pg (25-35) Mean Corpuscular Hemoglobin Concent 33 g/dL (31-37) Red Cell Distribution Width 15.8 % (11.5-14.5) Platelet Count 62 x10^3/uL (140-400) Neutrophils (%) (Auto) 78 % (31-73) Lymphocytes (%) (Auto) 20 % (24-48) Monocytes (%) (Auto) 1 % (0-9) Eosinophils (%) (Auto) 1 % (0-3) Basophils (%) (Auto) 0 % (0-3) Neutrophils # (Auto) 6.5 x10^3uL (1.8-7.7) Lymphocytes # (Auto) 1.7 x10^3/uL (1.0-4.8) Monocytes # (Auto) 0.1 x10^3/uL (0.0-1.1) Eosinophils # (Auto) 0.1 x10^3/uL (0.0-0.7) Basophils # (Auto) 0.0 x10^3/uL (0.0-0.2) Sodium Level 144 mmol/L (136-145) Potassium Level 5.2 mmol/L (3.5-5.1) Chloride Level 114 mmol/L (98-107) Carbon Dioxide Level 21 mmol/L (21-32) Anion Gap 9 (6-14) Blood Urea Nitrogen 49 mg/dL (7-20) Creatinine 1.0 mg/dL (0.6-1.0) Estimated GFR (Cockcroft-Gault) 69.7 Glucose Level 306 mg/dL (70-99) Calcium Level 8.7 mg/dL (8.5-10.1) Laboratory Tests Test 12/09/16 13:40 12/10/16 09:00 12/10/16 09:20 O2 Saturation 98 % (92-99) 92 % (92-99) Arterial Blood pH 7.40 (7.35-7.45) 7.03 (7.35-7.45) Arterial Blood pCO2 at Patient Temp 30 mmHg (35-46) 70 mmHg (35-46) Arterial Blood pO2 at Patient Temp 123 mmHg (75-108) 96 mmHg (75-108) Arterial Blood HCO3 18 mmol/L (21-28) 18 mmol/L (21-28) Arterial Blood Base Excess -6 mmol/L (-3-3) -13 mmol/L (-3-3) FiO2 35 60 White Blood Count 8.4 x10^3/uL (4.0-11.0) Red Blood Count 3.72 x10^6/uL (3.50-5.40) Hemoglobin 11.2 g/dL (12.0-15.5) Hematocrit 34.5 % (36.0-47.0) Mean Corpuscular Volume 93 fL (79-100) Mean Corpuscular Hemoglobin 30 pg (25-35) Mean Corpuscular Hemoglobin Concent 33 g/dL (31-37) Red Cell Distribution Width 15.8 % (11.5-14.5) Platelet Count 62 x10^3/uL (140-400) Neutrophils (%) (Auto) 78 % (31-73) Lymphocytes (%) (Auto) 20 % (24-48) Monocytes (%) (Auto) 1 % (0-9) Eosinophils (%) (Auto) 1 % (0-3) Basophils (%) (Auto) 0 % (0-3) Neutrophils # (Auto) 6.5 x10^3uL (1.8-7.7) Lymphocytes # (Auto) 1.7 x10^3/uL (1.0-4.8) Monocytes # (Auto) 0.1 x10^3/uL (0.0-1.1) Eosinophils # (Auto) 0.1 x10^3/uL (0.0-0.7) Basophils # (Auto) 0.0 x10^3/uL (0.0-0.2) Sodium Level 144 mmol/L (136-145) Potassium Level 5.2 mmol/L (3.5-5.1) Chloride Level 114 mmol/L (98-107) Carbon Dioxide Level 21 mmol/L (21-32) Anion Gap 9 (6-14) Blood Urea Nitrogen 49 mg/dL (7-20) Creatinine 1.0 mg/dL (0.6-1.0) Estimated GFR (Cockcroft-Gault) 69.7 Glucose Level 306 mg/dL (70-99) Calcium Level 8.7 mg/dL (8.5-10.1) Microbiology 12/06/16 Blood Culture - Final, Complete 12/06/16 Blood Culture Result 1 (LUCINA) - Final, Complete 12/06/16 Antimicrobic Susceptibility - Final, Complete 12/08/16 Sputum Culture - Preliminary, Resulted 12/08/16 Sputum Result 1 - Preliminary, Resulted 12/06/16 Urine Culture - Final, Complete 12/06/16 Urine Culture Result 1 (LUCINA) - Final, Complete Medications Current Medications Sodium Chloride 1,000 ml @ 1,000 mls/hr 1X ONCE IV Last administered on 16:18; Start 12/06/16 at 16:15; Stop 12/06/16 at 17:14; Status DC Vancomycin HCl (Vanco Per Pharmacy) 1 each PRN DAILY PRN MC SEE COMMENTS Last administered on 12/10/16 10:04; Start 12/06/16 at 17:00 Levofloxacin/ Dextrose 150 ml @ 100 mls/hr 1X ONCE IV Last administered on 20:04; Start 12/06/16 at 17:00; Stop 12/06/16 at 18:29; Status DC Vancomycin HCl 2 gm/Sodium Chloride 500 ml @ 250 mls/hr 1X ONCE IV Last administered on 12/06/16 17:11; Start 12/06/16 at 17:00; Stop 12/06/16 at 18:59 ; Status DC Sodium Chloride 1,000 ml @ 1,000 mls/hr 1X ONCE IV Last administered on 17:09; Start 12/06/16 at 17:00; Stop 12/06/16 at 17:59; Status DC Meropenem 500 mg/ Sodium Chloride 50 ml @ 100 mls/hr Q8HRS IV Last administered on 12/10/16 07:30; Start 12/06/16 at 18:00; Stop 12/10/16 at 08:13 ; Status DC Dopamine HCl/ Dextrose 250 ml @ 16.414 mls/ hr 1X ONCE IV Last administered on 12/06/16 17:41; Start 12/06/16 at 17:15; Stop 12/07/16 at 08:28; Status DC Etomidate (Amidate) 20 mg 1X ONCE IV Last administered on 12/06/16 17:19; Start 12/06/16 at 17:15; Stop 12/06/16 at 17:17; Status DC Succinylcholine Chloride (Anectine) 100 mg 1X ONCE IV Last administered on 17:20; Start 12/06/16 at 17:15; Stop 12/06/16 at 17:17; Status DC Vancomycin HCl 1.25 gm/Sodium Chloride 250 ml @ 167 mls/hr Q24H IV Last administered on 12/07/16 18:39; Start 12/07/16 at 17:00; Stop 12/07/16 at 23:00 ; Status DC Vancomycin HCl 1 each 1X ONCE MC ; Start 12/07/16 at 16:30; Stop 12/07/16 at 16 :31; Status Cancel Midazolam HCl 100 ml @ As Directed STK-MED ONCE IV ; Start 12/06/16 at 17:36; Stop 12/06/16 at 17:37; Status DC Midazolam HCl (Versed) 5 mg STK-MED ONCE .ROUTE ; Start 12/06/16 at 17:37; Stop 12/06/16 at 17:38; Status DC Midazolam HCl (Versed) 5 mg PRN Q10MIN PRN IV SEDATION; Start 12/06/16 at 17:45 Hydrocortisone Sodium Succinate (Solu-CORTEF) 100 mg Q8HRS IV Last administered on 12/09/16 13:55; Start 12/06/16 at 18:30; Stop 12/09/16 at 16:21 ; Status DC Norepinephrine Bitartrate 16 mg/ Sodium Chloride 266 ml @ 0 mls/hr CONT PRN IV SEE I/O RECORD; Start 12/06/16 at 19:00; Status UNV Pantoprazole Sodium (Protonix Vial) 40 mg DAILYAC IVP Last administered on 12/10 08:34; Start 12/06/16 at 19:30 Acetaminophen (Tylenol) 325 mg PRN Q6HRS PRN PO MILD PAIN / TEMP; Start at 19:00 Hydralazine HCl (Apresoline) 10 mg PRN Q4HRS PRN IVP ELEVATED BP, SEE COMMENTS Last administered on 12/10/16 07:29; Start 12/06/16 at 19:00 Ondansetron HCl (Zofran) 4 mg PRN Q8HRS PRN IV NAUSEA/VOMITING; Start 12/06/16 at 19:00 Albuterol Sulfate (Ventolin Neb Soln) 2.5 mg PRN Q4HRS PRN NEB SHORTNESS OF BREATH; Start 12/06/16 at 19:00 Norepinephrine Bitartrate 250 ml @ 1.875 mls/ hr CONT PRN IV SEE I/O RECORD Last administered on 12/06/16 19:55; Start 12/06/16 at 19:00 Sodium Chloride 1,000 ml @ 1,000 mls/hr 1X ONCE IV Last administered on 19:56; Start 12/06/16 at 19:15; Stop 12/06/16 at 20:14; Status DC Sodium Chloride 1,000 ml @ 75 mls/hr [id number] IV Last administered on 21:55; Start 12/06/16 at 19:15; Stop 12/09/16 at 18:44; Status DC Pneumococcal Polyvalent Vaccine (Do NOT chart on this placeholder) 1 each PRN DAILY PRN MC PT UNABLE TO RESPOND; Start 12/07/16 at 09:30; Status Cancel Pneumococcal Polyvalent Vaccine (Pneumovax 23) 0.5 ml ONCE ONCE VAX IM ; Start 12/08/16 at 09:00; Stop 12/08/16 at 09:01; Status DC Albuterol/ Ipratropium (Duoneb) 3 ml RTQID NEB Last administered on 12/10/16 07:38; Start 12/07/16 at 12:00 Midazolam HCl 100 ml @ 0 mls/hr CONT PRN IV SEE I/O RECORD Last administered on 12/07/16 10:29; Start 12/07/16 at 10:15 Fentanyl Citrate (Fentanyl 2ml Vial) 25 mcg PRN Q1HR PRN IV PAIN Last administered on 12/10/16 07:29; Start 12/07/16 at 10:45 Pantoprazole Sodium (Protonix Vial) 40 mg DAILYAC IVP ; Start 12/07/16 at 17:00 ; Status Cancel Vancomycin HCl 1.25 gm/Sodium Chloride 250 ml @ 167 mls/hr Q12H IV Last administered on 12/10/16 06:00; Start 12/08/16 at 06:00 Vancomycin HCl 1 each 1X ONCE MC ; Start 12/08/16 at 17:30; Stop 12/08/16 at 17 :31; Status DC Vancomycin HCl 1 gm/Sodium Chloride 250 ml @ 250 mls/hr Q12H IV ; Start at 18:00; Status Cancel Chlorhexidine Gluconate (Peridex) 15 ml BID SWSP ; Start 12/09/16 at 21:00; Stop 12/10/16 at 07:23; Status DC Hydrocortisone Sodium Succinate (Solu-CORTEF) 100 mg Q12HR IV Last administered on 12/10/16 08:34; Start 12/09/16 at 21:00 Amino Acids/ Glycerin/ Electrolytes 1,000 ml @ 40 mls/hr Q24H IV Last administered on 12/09/16 17:56; Start 12/09/16 at 17:00 Alprazolam (Xanax) 0.25 mg DAILY PO ; Start 12/10/16 at 09:00 Bupropion HCl (Wellbutrin) 100 mg BID PO Last administered on 12/09/16 20:17; Start 12/09/16 at 21:00 Gabapentin (Neurontin) 300 mg BID PO ; Start 12/09/16 at 21:00; Status Cancel Ropinirole HCl (Requip) 0.25 mg QHS PO Last administered on 12/09/16 20:17; Start 12/09/16 at 21:00 Pregabalin (Lyrica) 150 mg DAILY PO ; Start 12/10/16 at 09:00 Epinephrine (S2 Racepinephrine) 0.5 ml 1X ONCE NEB Last administered on 07:45; Start 12/10/16 at 07:45; Stop 12/10/16 at 07:46; Status DC Lorazepam (Ativan) 2 mg 1X ONCE IV Last administered on 12/10/16 08:33; Start 12/10/16 at 08:00; Stop 12/10/16 at 08:01; Status DC Succinylcholine Chloride (Anectine) 200 mg STK-MED ONCE .ROUTE ; Start 12/10/16 at 10:28; Stop 12/10/16 at 10:29; Status DC Propofol 100 ml @ As Directed STK-MED ONCE IV ; Start 12/10/16 at 10:28; Stop 12/10/16 at 10:29; Status DC Active Scripts Active Oxycodone Hcl 5 Mg Tablet 5 Mg PO PRN Q6HRS PRN Reported Albuterol Sulfate Neb Soln (Albuterol Sulfate) 1.25 Mg/3 Ml Vial.neb 1 Vial NEB Q6HRS Ranitidine Hcl 150 Mg Capsule 75 Mg PO DAILY Ondansetron Hcl 8 Mg Tablet 8 Mg PO DAILY Azithromycin Tablet (Azithromycin) 250 Mg Tablet 250 Mg PO DAILY Bupropion Hcl 100 Mg Tablet 100 Mg PO BID Nasal Allergy [employer] (Cromolyn Sodium) 13 Ml [employer].pump 13 Ml NS DAILY Gabapentin 300 Mg Capsule 300 Mg PO BID Hydroxyzine Hcl 25 Mg Tablet 25 Mg PO DAILY Nystatin 15 Gm Cream..g. 15 Gm TP BID Duloxetine Hcl 60 Mg Capsule.dr 60 Mg PO DAILY Clonidine Hcl 0.1 Mg Tablet 0.1 Mg PO DAILY Lisinopril 20 Mg Tablet 20 Mg PO DAILY Famciclovir 125 Mg Tablet 125 Mg PO DAILY Ropinirole Hcl 0.25 Mg Tablet 0.25 Mg PO DAILY Hydroxychloroquine Sulfate 200 Mg Tablet 200 Mg PO DAILY Lyrica (Pregabalin) 150 Mg Capsule 150 Mg PO DAILY Furosemide 20 Mg Tablet 20 Mg PO DAILY Alprazolam 0.25 Mg Tablet 0.25 Mg PO Oxycodone Hcl 5 Mg Tablet 5 Mg PO PRN Q4HRS PRN Ibuprofen 400 Mg Tablet 400 Mg PO PRN DAILY PRN Multivitamins (Multivitamin) 1 Each Tablet 1 Each PO DAILY Oxycodone-Acetaminophen 10-325 (Oxycodone Hcl/Acetaminophen) 1 Each Tablet 1 Each PO PRN Q4-6HRS PRN Plaquenil (Hydroxychloroquine Sulfate) 200 Mg Tablet 200 Mg PO BID Vitals/I & O Vital Sign - Last 24 Hours 12/09/16 12/09/16 12/09/16 12/09/16 11:53 12:00 12:00 13:00 Temp 98.1 98.1 Pulse 80 95 Resp 16 16 B/P (MAP) 137/86 (103) 137/77 (97) Pulse Ox 97 98 100 O2 Delivery Ventilator Mechanical Ventilator Ventilator 12/09/16 12/09/16 12/09/16 12/09/16 13:12 14:00 15:00 15:15 Pulse 89 89 Resp 16 16 B/P (MAP) 133/75 (94) 145/79 (101) Pulse Ox 100 100 100 97 O2 Delivery Ventilator Ventilator Ventilator 12/09/16 12/09/16 12/09/16 12/09/16 15:58 16:00 16:00 17:00 Temp 97.9 97.9 Pulse 86 92 Resp 18 18 B/P (MAP) 145/94 (111) 155/91 (112) Pulse Ox 98 97 O2 Delivery Nasal Cannula Nasal Cannula Nasal Cannula Nasal Cannula O2 Flow Rate 3.0 3.0 3.0 3.0 12/09/16 12/09/16 12/09/16 12/09/16 18:00 19:00 19:58 20:00 Pulse 96 96 Resp 15 25 B/P (MAP) 178/85 (116) 148/83 (104) Pulse Ox 100 100 O2 Delivery Nasal Cannula Nasal Cannula Room Air Nasal Cannula O2 Flow Rate 3.0 3.0 3.0 12/09/16 12/09/16 12/09/16 12/09/16 20:00 20:26 21:00 21:06 Temp 97.5 97.5 Pulse 100 96 Resp 28 24 B/P (MAP) 113/87 (96) 119/82 (94) Pulse Ox 96 95 96 O2 Delivery Room Air Room Air Room Air Room Air 12/09/16 12/09/16 12/10/16 12/10/16 22:00 23:00 00:00 00:00 Pulse 90 88 92 Resp 21 B/P (MAP) 127/83 (98) 131/85 (100) Pulse Ox 97 96 93 O2 Delivery Room Air Room Air Room Air Nasal Cannula O2 Flow Rate 3.0 12/10/16 12/10/16 12/10/16 12/10/16 00:00 01:00 02:00 02:52 Temp 97.5 97.5 Pulse 90 92 Resp 21 B/P (MAP) 152/74 (100) 137/77 (97) Pulse Ox 95 97 O2 Delivery Room Air Room Air Room Air 12/10/16 12/10/16 12/10/16 12/10/16 03:00 04:00 04:00 05:00 Temp 98.0 98.0 Pulse 94 96 92 Resp 22 B/P (MAP) 125/89 (101) 144/89 (107) 144/79 (100) Pulse Ox 93 96 95 O2 Delivery Room Air Nasal Cannula Room Air Room Air O2 Flow Rate 3.0 12/10/16 12/10/16 12/10/16 12/10/16 06:00 06:20 07:00 07:29 Pulse 99 120 122 Resp 29 26 B/P (MAP) 140/89 (106) 140/89 (106) 165/109 Pulse Ox 91 91 O2 Delivery Room Air Room Air Nasal Cannula O2 Flow Rate 2.0 12/10/16 12/10/16 12/10/16 12/10/16 07:29 07:39 07:52 08:00 Resp 28 O2 Delivery Nasal Cannula Nasal Cannula Nasal Cannula Nasal Cannula O2 Flow Rate 2.0 4.0 4.0 2.0 12/10/16 12/10/16 12/10/16 12/10/16 08:00 08:34 08:44 09:00 Temp 97.3 97.3 Pulse 132 124 Resp 36 37 35 B/P (MAP) 168/95 (119) 142/37 (72) Pulse Ox 94 96 93 93 O2 Delivery Nasal Cannula BiPAP/CPAP BiPAP/CPAP BiPAP/CPAP O2 Flow Rate 4.0 12/10/16 12/10/16 10:00 10:41 Pulse 117 Resp 34 B/P (MAP) 104/52 (69) Pulse Ox 91 99 O2 Delivery BiPAP/CPAP Ventilator Intake and Output 12/09/16 12/09/16 12/10/16 15:00 23:00 07:00 Intake Total 300 ml 0 ml 1987 ml Output Total 298 ml 375 ml 327 ml Balance 2 ml -375 ml 1660 ml Nutrition Consultation Dietary Evaluation: Recommendations by RD: Increase Calorie Intake Comments: PPN running at 40 ml/hr, consider increasing rate to 80 ml/hr Consider dobhoff TF's if unable to advance diet Expected Outcomes/Goals: meet 75% estimated nutrition needs Malnutrition Findings: Reduced Authorization Rep Strength: N/A Reduced Authorization Rep Strength (Non-Sev: N/A Malnutrition related to morbid: No Weight Status: Obese REDD CAN MD Dec 10, 2016 11:18
[2016-12-10] MEDS ORDERED: CALCIUM GLUCONATE 1,000 MG/10 ML VIAL. IVP ONE (11:30)
[2016-12-10] MEDS ORDERED: SUCCINYLCHOLINE 200 MG/10 ML VIAL. IV ONE (11:30)
[2016-12-10] MEDS: PROPOFOL 100 ML IV PRN ×2 (11:42→22:35)
[2016-12-10 12:03] LABS: HCO3 ABG 18 mmol/L (21-28); PCO2 ABG 38 mmHg (35-46); PH ABG 7.29 (7.35-7.45); PO2 ABG 299 mmHg (75-108); SAT O2 ABG 99 % (92-99)
[2016-12-10 12:06] LABS: FIO2 ABG 100
[2016-12-10] MEDS ORDERED: DEXTROSE 50% 25 GM / 50ML DISP.SYRIN. IV PRN (20:30)
[2016-12-10] MEDS: rOPINIRole 0.25 MG TABLET. PO SCH (20:34)
[2016-12-10] MEDS: INSULIN ASPART 300 UNITS/3 ML INSULN.PEN SQ SCH (23:43)
[2016-12-11] VITALS (24 sets, daily range): BP systolic 80–117; BP diastolic 50–65
[2016-12-11] MEDS: PROPOFOL 100 ML IV PRN ×3 (05:01→20:01)
[2016-12-11 05:24] LABS: BASO % 0 % (0-3); EOS % 0 % (0-3); HEMATOCRIT 24.4 % (36.0-47.0); LYMPH # 0.5 x10^3/uL (1.0-4.8); LYMPH % 17 % (24-48); MEAN CORPUSCULAR HEMOGLOBIN 30 pg (25-35); MEAN CORPUSCULAR HGB CONC 33 g/dL (31-37); MEAN CORPUSCULAR VOLUME 90 fL (79-100); MONO % 4 % (0-9); NEUT % 79 % (31-73); RED BLOOD COUNT 2.71 x10^6/uL (3.50-5.40); RED CELL DISTRIBUTION WIDTH 15.1 % (11.5-14.5)
[2016-12-11 05:33] LABS: PLATELET COUNT 22 x10^3/uL (140-400)
[2016-12-11 05:43] LABS: CALCIUM 8.2 mg/dL (8.5-10.1); CREATININE 0.9 mg/dL (0.6-1.0); GFR 78.7; POTASSIUM 4.1 mmol/L (3.5-5.1)
[2016-12-11] MEDS: INSULIN ASPART 300 UNITS/3 ML INSULN.PEN SQ SCH ×4 (05:57→23:56)
[2016-12-11] MEDS: VANCOMYCIN 1.25 GM in IV NORMAL SALINE 250ML 250 ML IV SCH ×2 (05:57→17:55)
[2016-12-11] MEDS: IPRATRPIUM/ALBUTEROL 0.5/2.5MG 3 ML NEBU. NEB SCH ×4 (07:27→21:40)
[2016-12-11] MEDS ORDERED: INSULIN ASPART 300 UNITS/3 ML INSULN.PEN SQ SCH (08:00)
--- NOTE | 2016-12-11 08:04 | PDOC ---
Infectious Disease Note Subjective Subjective reintubated ROS ROS unable to do Vital Sign Vital Signs Vital Signs Date Time Temp Pulse Resp B/P (MAP) Pulse Ox O2 Delivery O2 Flow Rate FiO2 12/11/16 07:27 100 Ventilator 12/11/16 06:00 86 18 91/57 (68) 12/11/16 04:00 98.0 98.0 12/10/16 21:00 16.0 Physical Exam PHYSICAL EXAM GENERAL: sedated on vent HEENT: PERRL, OC/OP NECK: Supple, no JVD, no LN LUNGS: Clear HEART: S1S2, no gallop, no murmur ABD: Soft, NT, no organomegaly, no rebound EXT: No edema, no cyanosis [employer]: sedated on vent SKIN: No rash IV: ok Labs Lab Laboratory Tests Test 12/10/16 09:00 12/10/16 09:20 12/10/16 11:50 12/10/16 23:43 O2 Saturation 92 % (92-99) 99 % (92-99) Arterial Blood pH 7.03 (7.35-7.45) 7.29 (7.35-7.45) Arterial Blood pCO2 at Patient Temp 70 mmHg (35-46) 38 mmHg (35-46) Arterial Blood pO2 at Patient Temp 96 mmHg (75-108) 299 mmHg (75-108) Arterial Blood HCO3 18 mmol/L (21-28) 18 mmol/L (21-28) Arterial Blood Base Excess -13 mmol/L (-3-3) -8 mmol/L (-3-3) FiO2 60 100 White Blood Count 8.4 x10^3/uL (4.0-11.0) Red Blood Count 3.72 x10^6/uL (3.50-5.40) Hemoglobin 11.2 g/dL (12.0-15.5) Hematocrit 34.5 % (36.0-47.0) Mean Corpuscular Volume 93 fL (79-100) Mean Corpuscular Hemoglobin 30 pg (25-35) Mean Corpuscular Hemoglobin Concent 33 g/dL (31-37) Red Cell Distribution Width 15.8 % (11.5-14.5) Platelet Count 62 x10^3/uL (140-400) Neutrophils (%) (Auto) 78 % (31-73) Lymphocytes (%) (Auto) 20 % (24-48) Monocytes (%) (Auto) 1 % (0-9) Eosinophils (%) (Auto) 1 % (0-3) Basophils (%) (Auto) 0 % (0-3) Neutrophils # (Auto) 6.5 x10^3uL (1.8-7.7) Lymphocytes # (Auto) 1.7 x10^3/uL (1.0-4.8) Monocytes # (Auto) 0.1 x10^3/uL (0.0-1.1) Eosinophils # (Auto) 0.1 x10^3/uL (0.0-0.7) Basophils # (Auto) 0.0 x10^3/uL (0.0-0.2) Sodium Level 144 mmol/L (136-145) Potassium Level 5.2 mmol/L (3.5-5.1) Chloride Level 114 mmol/L (98-107) Carbon Dioxide Level 21 mmol/L (21-32) Anion Gap 9 (6-14) Blood Urea Nitrogen 49 mg/dL (7-20) Creatinine 1.0 mg/dL (0.6-1.0) Estimated GFR (Cockcroft-Gault) 69.7 Glucose Level 306 mg/dL (70-99) Calcium Level 8.7 mg/dL (8.5-10.1) Glucose (Fingerstick) 133 mg/dL (70-99) Test 12/11/16 04:55 12/11/16 05:54 White Blood Count 3.0 x10^3/uL (4.0-11.0) Red Blood Count 2.71 x10^6/uL (3.50-5.40) Hemoglobin 8.0 g/dL (12.0-15.5) Hematocrit 24.4 % (36.0-47.0) Mean Corpuscular Volume 90 fL (79-100) Mean Corpuscular Hemoglobin 30 pg (25-35) Mean Corpuscular Hemoglobin Concent 33 g/dL (31-37) Red Cell Distribution Width 15.1 % (11.5-14.5) Platelet Count 22 x10^3/uL (140-400) Neutrophils (%) (Auto) 79 % (31-73) Lymphocytes (%) (Auto) 17 % (24-48) Monocytes (%) (Auto) 4 % (0-9) Eosinophils (%) (Auto) 0 % (0-3) Basophils (%) (Auto) 0 % (0-3) Neutrophils # (Auto) 2.4 x10^3uL (1.8-7.7) Lymphocytes # (Auto) 0.5 x10^3/uL (1.0-4.8) Monocytes # (Auto) 0.1 x10^3/uL (0.0-1.1) Eosinophils # (Auto) 0.0 x10^3/uL (0.0-0.7) Basophils # (Auto) 0.0 x10^3/uL (0.0-0.2) Sodium Level 144 mmol/L (136-145) Potassium Level 4.1 mmol/L (3.5-5.1) Chloride Level 113 mmol/L (98-107) Carbon Dioxide Level 20 mmol/L (21-32) Anion Gap 11 (6-14) Blood Urea Nitrogen 59 mg/dL (7-20) Creatinine 0.9 mg/dL (0.6-1.0) Estimated GFR (Cockcroft-Gault) 78.7 Glucose Level 171 mg/dL (70-99) Calcium Level 8.2 mg/dL (8.5-10.1) Glucose (Fingerstick) 151 mg/dL (70-99) Micro BLOOD CULTURE PRL Final Final report BLD CULT RESULT 1 Final Staphylococcus aureus Recovered from aerobic and anaerobic bottles. Methicillin resistant (MRSA) Based on resistance to oxacillin this isolate would be resistant to all currently available beta-lactam antimicrobial agents, with the exception of the newer cephalosporins with anti-MRSA activity, such as Ceftaroline ANTIMICROBIAL SUSCEPTIBILITY Final Comment S = Susceptible; I = Intermediate; R = Resistant P = Positive; N = Negative MICS are expressed in micrograms per mL Antibiotic RSLT#1 RSLT#2 RSLT#3 RSLT#4 Ciprofloxacin S Gentamicin S Levofloxacin S Linezolid S Nitrofurantoin S Oxacillin R Penicillin R Rifampin S Tetracycline S Trimethoprim/Sulfa S Vancomycin S Performed at: [address] [id number] [employer]: Evelyn Reyes MD, Phone: [phone] Objective Assessment Sepsis. POA Hypotension, now off pressor Pancytopenia PCN allergy, reaction unknown Acute encephalopathy LEONARDO Acute respiratory failure h/o breast cancer, s/p chemo. Port still in place Lupus on Plaquenil Recent E. coli UTI MRSA nares, 11/25, 12/06 and sputum Diarrhea. C. diff. neg 12/06 BC + MRSA Plan Plan of Care cont Vanc, Monitor WBC, Cr and temp CHARLI AMANDA MARC MD Dec 11, 2016 08:04
[2016-12-11 08:08] LABS: HCO3 ABG 18 mmol/L (21-28); PCO2 ABG 27 mmHg (35-46); PH ABG 7.45 (7.35-7.45); PO2 ABG 123 mmHg (75-108); SAT O2 ABG 98 % (92-99)
[2016-12-11] MEDS: VANCOMYCIN PER PHARMACY MC PRN (08:24)
[2016-12-11] MEDS: PREGABALIN 75 MG CAPSULE PO SCH (08:32)
[2016-12-11] MEDS: buPROPion 100 MG TABLET PO SCH ×2 (08:32→20:53)
[2016-12-11] MEDS: PANTOPRAZOLE IV PUSH 40 MG VIAL. IVP SCH (08:33)
[2016-12-11] MEDS: ALPRAZolam 0.25 MG TABLET PO SCH (08:33)
[2016-12-11] MEDS: HYDROCORTISONE SOD SUCC/PF 100 MG/2 ML VIAL. IV SCH ×2 (08:33→20:53)
[2016-12-11 08:39] LABS: FIO2 ABG 40
--- NOTE | 2016-12-11 09:21 | PDOC ---
PROGRESS NOTES Chief Complaint Chief Complaint cc: hypotension 1. Septic Shock, MRSA bacteremia, nares + MRSA, septic: off Levophed, on IV hydration, Vancomycin, Naresh dosing. follow blood cx. 2. Pancytopenia: possible due to sepsis, monitor, neutropenic precautions, monitor, hematology note reviewed. wbc up due to steroids 3. Acute respiratory failure on Mechanica ventilation: extubated and re intubated back on 12/11/16, CXR showed infiltrates 4. Malnutrition: on PPN, change to tube feeds, nutrition consultation 5. Lupus, immuno suppressive state. 6. Recently treated urinary tract infection, Escherichia coli. 7. Hyponatremia.:resolved 5. Mild hyperkalemia:resolved. Prognosis: guarded, critical condition, no family at bedside. Vitals Vitals Vital Signs Date Time Temp Pulse Resp B/P (MAP) Pulse Ox O2 Delivery O2 Flow Rate FiO2 12/11/16 09:00 86 22 97/56 (70) 100 Ventilator 20.0 12/11/16 08:00 97.8 97.8 Physical Exam General: Other (sedated) Heart: Normal S1, Normal S2 Lungs: Clear, Other (rales) Abdomen: Normal bowel sounds, Soft Extremities: No clubbing Skin: Other Labs LABS Laboratory Tests Test 12/10/16 11:50 12/10/16 23:43 12/11/16 04:55 12/11/16 05:54 O2 Saturation 99 % (92-99) Arterial Blood pH 7.29 (7.35-7.45) Arterial Blood pCO2 at Patient Temp 38 mmHg (35-46) Arterial Blood pO2 at Patient Temp 299 mmHg (75-108) Arterial Blood HCO3 18 mmol/L (21-28) Arterial Blood Base Excess -8 mmol/L (-3-3) FiO2 100 Glucose (Fingerstick) 133 mg/dL (70-99) 151 mg/dL (70-99) White Blood Count 3.0 x10^3/uL (4.0-11.0) Red Blood Count 2.71 x10^6/uL (3.50-5.40) Hemoglobin 8.0 g/dL (12.0-15.5) Hematocrit 24.4 % (36.0-47.0) Mean Corpuscular Volume 90 fL (79-100) Mean Corpuscular Hemoglobin 30 pg (25-35) Mean Corpuscular Hemoglobin Concent 33 g/dL (31-37) Red Cell Distribution Width 15.1 % (11.5-14.5) Platelet Count 22 x10^3/uL (140-400) Neutrophils (%) (Auto) 79 % (31-73) Lymphocytes (%) (Auto) 17 % (24-48) Monocytes (%) (Auto) 4 % (0-9) Eosinophils (%) (Auto) 0 % (0-3) Basophils (%) (Auto) 0 % (0-3) Neutrophils # (Auto) 2.4 x10^3uL (1.8-7.7) Lymphocytes # (Auto) 0.5 x10^3/uL (1.0-4.8) Monocytes # (Auto) 0.1 x10^3/uL (0.0-1.1) Eosinophils # (Auto) 0.0 x10^3/uL (0.0-0.7) Basophils # (Auto) 0.0 x10^3/uL (0.0-0.2) Sodium Level 144 mmol/L (136-145) Potassium Level 4.1 mmol/L (3.5-5.1) Chloride Level 113 mmol/L (98-107) Carbon Dioxide Level 20 mmol/L (21-32) Anion Gap 11 (6-14) Blood Urea Nitrogen 59 mg/dL (7-20) Creatinine 0.9 mg/dL (0.6-1.0) Estimated GFR (Cockcroft-Gault) 78.7 Glucose Level 171 mg/dL (70-99) Calcium Level 8.2 mg/dL (8.5-10.1) Test 12/11/16 08:10 O2 Saturation 98 % (92-99) Arterial Blood pH 7.45 (7.35-7.45) Arterial Blood pCO2 at Patient Temp 27 mmHg (35-46) Arterial Blood pO2 at Patient Temp 123 mmHg (75-108) Arterial Blood HCO3 18 mmol/L (21-28) Arterial Blood Base Excess -5 mmol/L (-3-3) FiO2 40 Assessment and Plan Assessmemt and Plan Problems Medical Problems: (1) Respiratory failure Status: Acute Problems: Comment Review of Relevant I have reviewed the following items anselmo (where applicable) has been applied. Labs Laboratory Tests Test 12/09/16 13:40 6/20/17 09:00 12/10/16 09:20 12/10/16 11:50 O2 Saturation 98 % (92-99) 92 % (92-99) 99 % (92-99) Arterial Blood pH 7.40 (7.35-7.45) 7.03 (7.35-7.45) 7.29 (7.35-7.45) Arterial Blood pCO2 at Patient Temp 30 mmHg (35-46) 70 mmHg (35-46) 38 mmHg (35-46) Arterial Blood pO2 at Patient Temp 123 mmHg (75-108) 96 mmHg (75-108) 299 mmHg (75-108) Arterial Blood HCO3 18 mmol/L (21-28) 18 mmol/L (21-28) 18 mmol/L (21-28) Arterial Blood Base Excess -6 mmol/L (-3-3) -13 mmol/L (-3-3) -8 mmol/L (-3-3) FiO2 35 60 100 White Blood Count 8.4 x10^3/uL (4.0-11.0) Red Blood Count 3.72 x10^6/uL (3.50-5.40) Hemoglobin 11.2 g/dL (12.0-15.5) Hematocrit 34.5 % (36.0-47.0) Mean Corpuscular Volume 93 fL (79-100) Mean Corpuscular Hemoglobin 30 pg (25-35) Mean Corpuscular Hemoglobin Concent 33 g/dL (31-37) Red Cell Distribution Width 15.8 % (11.5-14.5) Platelet Count 62 x10^3/uL (140-400) Neutrophils (%) (Auto) 78 % (31-73) Lymphocytes (%) (Auto) 20 % (24-48) Monocytes (%) (Auto) 1 % (0-9) Eosinophils (%) (Auto) 1 % (0-3) Basophils (%) (Auto) 0 % (0-3) Neutrophils # (Auto) 6.5 x10^3uL (1.8-7.7) Lymphocytes # (Auto) 1.7 x10^3/uL (1.0-4.8) Monocytes # (Auto) 0.1 x10^3/uL (0.0-1.1) Eosinophils # (Auto) 0.1 x10^3/uL (0.0-0.7) Basophils # (Auto) 0.0 x10^3/uL (0.0-0.2) Sodium Level 144 mmol/L (136-145) Potassium Level 5.2 mmol/L (3.5-5.1) Chloride Level 114 mmol/L (98-107) Carbon Dioxide Level 21 mmol/L (21-32) Anion Gap 9 (6-14) Blood Urea Nitrogen 49 mg/dL (7-20) Creatinine 1.0 mg/dL (0.6-1.0) Estimated GFR (Cockcroft-Gault) 69.7 Glucose Level 306 mg/dL (70-99) Calcium Level 8.7 mg/dL (8.5-10.1) Test 12/10/16 23:43 12/11/16 04:55 12/11/16 05:54 12/11/16 08:10 Glucose (Fingerstick) 133 mg/dL (70-99) 151 mg/dL (70-99) White Blood Count 3.0 x10^3/uL (4.0-11.0) Red Blood Count 2.71 x10^6/uL (3.50-5.40) Hemoglobin 8.0 g/dL (12.0-15.5) Hematocrit 24.4 % (36.0-47.0) Mean Corpuscular Volume 90 fL (79-100) Mean Corpuscular Hemoglobin 30 pg (25-35) Mean Corpuscular Hemoglobin Concent 33 g/dL (31-37) Red Cell Distribution Width 15.1 % (11.5-14.5) Platelet Count 22 x10^3/uL (140-400) Neutrophils (%) (Auto) 79 % (31-73) Lymphocytes (%) (Auto) 17 % (24-48) Monocytes (%) (Auto) 4 % (0-9) Eosinophils (%) (Auto) 0 % (0-3) Basophils (%) (Auto) 0 % (0-3) Neutrophils # (Auto) 2.4 x10^3uL (1.8-7.7) Lymphocytes # (Auto) 0.5 x10^3/uL (1.0-4.8) Monocytes # (Auto) 0.1 x10^3/uL (0.0-1.1) Eosinophils # (Auto) 0.0 x10^3/uL (0.0-0.7) Basophils # (Auto) 0.0 x10^3/uL (0.0-0.2) Sodium Level 144 mmol/L (136-145) Potassium Level 4.1 mmol/L (3.5-5.1) Chloride Level 113 mmol/L (98-107) Carbon Dioxide Level 20 mmol/L (21-32) Anion Gap 11 (6-14) Blood Urea Nitrogen 59 mg/dL (7-20) Creatinine 0.9 mg/dL (0.6-1.0) Estimated GFR (Cockcroft-Gault) 78.7 Glucose Level 171 mg/dL (70-99) Calcium Level 8.2 mg/dL (8.5-10.1) O2 Saturation 98 % (92-99) Arterial Blood pH 7.45 (7.35-7.45) Arterial Blood pCO2 at Patient Temp 27 mmHg (35-46) Arterial Blood pO2 at Patient Temp 123 mmHg (75-108) Arterial Blood HCO3 18 mmol/L (21-28) Arterial Blood Base Excess -5 mmol/L (-3-3) FiO2 40 Laboratory Tests Test 12/10/16 11:50 12/10/16 23:43 12/11/16 04:55 12/11/16 05:54 O2 Saturation 99 % (92-99) Arterial Blood pH 7.29 (7.35-7.45) Arterial Blood pCO2 at Patient Temp 38 mmHg (35-46) Arterial Blood pO2 at Patient Temp 299 mmHg (75-108) Arterial Blood HCO3 18 mmol/L (21-28) Arterial Blood Base Excess -8 mmol/L (-3-3) FiO2 100 Glucose (Fingerstick) 133 mg/dL (70-99) 151 mg/dL (70-99) White Blood Count 3.0 x10^3/uL (4.0-11.0) Red Blood Count 2.71 x10^6/uL (3.50-5.40) Hemoglobin 8.0 g/dL (12.0-15.5) Hematocrit 24.4 % (36.0-47.0) Mean Corpuscular Volume 90 fL (79-100) Mean Corpuscular Hemoglobin 30 pg (25-35) Mean Corpuscular Hemoglobin Concent 33 g/dL (31-37) Red Cell Distribution Width 15.1 % (11.5-14.5) Platelet Count 22 x10^3/uL (140-400) Neutrophils (%) (Auto) 79 % (31-73) Lymphocytes (%) (Auto) 17 % (24-48) Monocytes (%) (Auto) 4 % (0-9) Eosinophils (%) (Auto) 0 % (0-3) Basophils (%) (Auto) 0 % (0-3) Neutrophils # (Auto) 2.4 x10^3uL (1.8-7.7) Lymphocytes # (Auto) 0.5 x10^3/uL (1.0-4.8) Monocytes # (Auto) 0.1 x10^3/uL (0.0-1.1) Eosinophils # (Auto) 0.0 x10^3/uL (0.0-0.7) Basophils # (Auto) 0.0 x10^3/uL (0.0-0.2) Sodium Level 144 mmol/L (136-145) Potassium Level 4.1 mmol/L (3.5-5.1) Chloride Level 113 mmol/L (98-107) Carbon Dioxide Level 20 mmol/L (21-32) Anion Gap 11 (6-14) Blood Urea Nitrogen 59 mg/dL (7-20) Creatinine 0.9 mg/dL (0.6-1.0) Estimated GFR (Cockcroft-Gault) 78.7 Glucose Level 171 mg/dL (70-99) Calcium Level 8.2 mg/dL (8.5-10.1) Test 12/11/16 08:10 O2 Saturation 98 % (92-99) Arterial Blood pH 7.45 (7.35-7.45) Arterial Blood pCO2 at Patient Temp 27 mmHg (35-46) Arterial Blood pO2 at Patient Temp 123 mmHg (75-108) Arterial Blood HCO3 18 mmol/L (21-28) Arterial Blood Base Excess -5 mmol/L (-3-3) FiO2 40 Microbiology 12/10/16 Blood Culture - Preliminary, Resulted NO GROWTH AFTER 1 DAY 12/08/16 Sputum Culture - Final, Complete 12/08/16 Sputum Result 1 - Final, Complete 12/08/16 Antimicrobic Susceptibility - Final, Complete 12/06/16 Urine Culture - Final, Complete 12/06/16 Urine Culture Result 1 (LUCINA) - Final, Complete Medications Current Medications Sodium Chloride 1,000 ml @ 1,000 mls/hr 1X ONCE IV Last administered on 16:18; Start 12/06/16 at 16:15; Stop 12/06/16 at 17:14; Status DC Vancomycin HCl (Vanco Per Pharmacy) 1 each PRN DAILY PRN MC SEE COMMENTS Last administered on 12/11/16 08:24; Start 12/06/16 at 17:00 Levofloxacin/ Dextrose 150 ml @ 100 mls/hr 1X ONCE IV Last administered on 20:04; Start 12/06/16 at 17:00; Stop 12/06/16 at 18:29; Status DC Vancomycin HCl 2 gm/Sodium Chloride 500 ml @ 250 mls/hr 1X ONCE IV Last administered on 12/06/16 17:11; Start 12/06/16 at 17:00; Stop 12/06/16 at 18:59 ; Status DC Sodium Chloride 1,000 ml @ 1,000 mls/hr 1X ONCE IV Last administered on 17:09; Start 12/06/16 at 17:00; Stop 12/06/16 at 17:59; Status DC Meropenem 500 mg/ Sodium Chloride 50 ml @ 100 mls/hr Q8HRS IV Last administered on 12/10/16 07:30; Start 12/06/16 at 18:00; Stop 12/10/16 at 08:13 ; Status DC Dopamine HCl/ Dextrose 250 ml @ 16.414 mls/ hr 1X ONCE IV Last administered on 12/06/16 17:41; Start 12/06/16 at 17:15; Stop 12/07/16 at 08:28; Status DC Etomidate (Amidate) 20 mg 1X ONCE IV Last administered on 12/06/16 17:19; Start 12/06/16 at 17:15; Stop 12/06/16 at 17:17; Status DC Succinylcholine Chloride (Anectine) 100 mg 1X ONCE IV Last administered on 17:20; Start 12/06/16 at 17:15; Stop 12/06/16 at 17:17; Status DC Vancomycin HCl 1.25 gm/Sodium Chloride 250 ml @ 167 mls/hr Q24H IV Last administered on 12/07/16 18:39; Start 12/07/16 at 17:00; Stop 12/07/16 at 23:00 ; Status DC Vancomycin HCl 1 each 1X ONCE MC ; Start 12/07/16 at 16:30; Stop 12/07/16 at 16 :31; Status Cancel Midazolam HCl 100 ml @ As Directed STK-MED ONCE IV ; Start 12/06/16 at 17:36; Stop 12/06/16 at 17:37; Status DC Midazolam HCl (Versed) 5 mg STK-MED ONCE .ROUTE ; Start 12/06/16 at 17:37; Stop 12/06/16 at 17:38; Status DC Midazolam HCl (Versed) 5 mg PRN Q10MIN PRN IV SEDATION; Start 12/06/16 at 17:45 Hydrocortisone Sodium Succinate (Solu-CORTEF) 100 mg Q8HRS IV Last administered on 12/09/16 13:55; Start 12/06/16 at 18:30; Stop 12/09/16 at 16:21 ; Status DC Norepinephrine Bitartrate 16 mg/ Sodium Chloride 266 ml @ 0 mls/hr CONT PRN IV SEE I/O RECORD; Start 12/06/16 at 19:00; Status UNV Pantoprazole Sodium (Protonix Vial) 40 mg DAILYAC IVP Last administered on 12/11 08:33; Start 12/06/16 at 19:30 Acetaminophen (Tylenol) 325 mg PRN Q6HRS PRN PO MILD PAIN / TEMP; Start at 19:00 Hydralazine HCl (Apresoline) 10 mg PRN Q4HRS PRN IVP ELEVATED BP, SEE COMMENTS Last administered on 12/10/16 07:29; Start 12/06/16 at 19:00 Ondansetron HCl (Zofran) 4 mg PRN Q8HRS PRN IV NAUSEA/VOMITING; Start 12/06/16 at 19:00 Albuterol Sulfate (Ventolin Neb Soln) 2.5 mg PRN Q4HRS PRN NEB SHORTNESS OF BREATH; Start 12/06/16 at 19:00 Norepinephrine Bitartrate 250 ml @ 1.875 mls/ hr CONT PRN IV SEE I/O RECORD Last administered on 12/06/16 19:55; Start 12/06/16 at 19:00 Sodium Chloride 1,000 ml @ 1,000 mls/hr 1X ONCE IV Last administered on 19:56; Start 12/06/16 at 19:15; Stop 12/06/16 at 20:14; Status DC Sodium Chloride 1,000 ml @ 75 mls/hr [id number] IV Last administered on 21:55; Start 12/06/16 at 19:15; Stop 12/09/16 at 18:44; Status DC Pneumococcal Polyvalent Vaccine (Do NOT chart on this placeholder) 1 each PRN DAILY PRN MC PT UNABLE TO RESPOND; Start 12/07/16 at 09:30; Status Cancel Pneumococcal Polyvalent Vaccine (Pneumovax 23) 0.5 ml ONCE ONCE VAX IM ; Start 12/08/16 at 09:00; Stop 12/08/16 at 09:01; Status DC Albuterol/ Ipratropium (Duoneb) 3 ml RTQID NEB Last administered on 12/11/16 07:27; Start 12/07/16 at 12:00 Midazolam HCl 100 ml @ 0 mls/hr CONT PRN IV SEE I/O RECORD Last administered on 12/07/16 10:29; Start 12/07/16 at 10:15 Fentanyl Citrate (Fentanyl 2ml Vial) 25 mcg PRN Q1HR PRN IV PAIN Last administered on 12/10/16 20:35; Start 12/07/16 at 10:45 Pantoprazole Sodium (Protonix Vial) 40 mg DAILYAC IVP ; Start 12/07/16 at 17:00 ; Status Cancel Vancomycin HCl 1.25 gm/Sodium Chloride 250 ml @ 167 mls/hr Q12H IV Last administered on 12/11/16 05:57; Start 12/08/16 at 06:00 Vancomycin HCl 1 each 1X ONCE MC ; Start 12/08/16 at 17:30; Stop 12/08/16 at 17 :31; Status DC Vancomycin HCl 1 gm/Sodium Chloride 250 ml @ 250 mls/hr Q12H IV ; Start at 18:00; Status Cancel Chlorhexidine Gluconate (Peridex) 15 ml BID SWSP ; Start 12/09/16 at 21:00; Stop 12/10/16 at 07:23; Status DC Hydrocortisone Sodium Succinate (Solu-CORTEF) 100 mg Q12HR IV Last administered on 12/11/16 08:33; Start 12/09/16 at 21:00 Amino Acids/ Glycerin/ Electrolytes 1,000 ml @ 40 mls/hr Q24H IV Last administered on 12/09/16 17:56; Start 12/09/16 at 17:00; Stop 12/10/16 at 14:16 ; Status DC Alprazolam (Xanax) 0.25 mg DAILY PO Last administered on 12/11/16 08:33; Start 12/10/16 at 09:00 Bupropion HCl (Wellbutrin) 100 mg BID PO Last administered on 12/11/16 08:32; Start 12/09/16 at 21:00 Gabapentin (Neurontin) 300 mg BID PO ; Start 12/09/16 at 21:00; Status Cancel Ropinirole HCl (Requip) 0.25 mg QHS PO Last administered on 12/10/16 20:34; Start 12/09/16 at 21:00 Pregabalin (Lyrica) 150 mg DAILY PO Last administered on 12/11/16 08:32; Start 12/10/16 at 09:00 Epinephrine (S2 Racepinephrine) 0.5 ml 1X ONCE NEB Last administered on 07:45; Start 12/10/16 at 07:45; Stop 12/10/16 at 07:46; Status DC Lorazepam (Ativan) 2 mg 1X ONCE IV Last administered on 12/10/16 08:33; Start 12/10/16 at 08:00; Stop 12/10/16 at 08:01; Status DC Succinylcholine Chloride (Anectine) 200 mg STK-MED ONCE .ROUTE ; Start 12/10/16 at 10:28; Stop 12/10/16 at 10:29; Status DC Propofol 100 ml @ As Directed STK-MED ONCE IV ; Start 12/10/16 at 10:28; Stop 12/10/16 at 10:29; Status DC Calcium Gluconate (Calcium Gluconate) 1,000 mg 1X ONCE IVP Last administered on 12/10/16 11:41; Start 12/10/16 at 11:30; Stop 12/10/16 at 11:31; Status DC Succinylcholine Chloride (Anectine) 200 mg 1X ONCE IV Last administered on 11:41; Start 12/10/16 at 11:30; Stop 12/10/16 at 11:31; Status DC Propofol 100 ml @ 0 mls/hr CONT PRN IV SEE I/O RECORD Last administered on 12/11 05:01; Start 12/10/16 at 11:30 Insulin Aspart (NovoLOG) 0-5 UNITS TIDWMEALS SQ ; Start 12/11/16 at 08:00; Stop 12/11/16 at 08:00; Status DC Dextrose (Dextrose 50%-Water Syringe) 12.5 gm PRN Q15MIN PRN IV SEE COMMENTS; Start 12/10/16 at 20:30 Insulin Aspart (NovoLOG) 0-5 UNITS Q6HRS SQ Last administered on 12/11/16 05: 57; Start 12/11/16 at 00:00 Active Scripts Active Oxycodone Hcl 5 Mg Tablet 5 Mg PO PRN Q6HRS PRN Reported Albuterol Sulfate Neb Soln (Albuterol Sulfate) 1.25 Mg/3 Ml Vial.neb 1 Vial NEB Q6HRS Ranitidine Hcl 150 Mg Capsule 75 Mg PO DAILY Ondansetron Hcl 8 Mg Tablet 8 Mg PO DAILY Azithromycin Tablet (Azithromycin) 250 Mg Tablet 250 Mg PO DAILY Bupropion Hcl 100 Mg Tablet 100 Mg PO BID Nasal Allergy [place] (Cromolyn Sodium) 13 Ml [place].pump 13 Ml NS DAILY Gabapentin 300 Mg Capsule 300 Mg PO BID Hydroxyzine Hcl 25 Mg Tablet 25 Mg PO DAILY Nystatin 15 Gm Cream..g. 15 Gm TP BID Duloxetine Hcl 60 Mg Capsule.dr 60 Mg PO DAILY Clonidine Hcl 0.1 Mg Tablet 0.1 Mg PO DAILY Lisinopril 20 Mg Tablet 20 Mg PO DAILY Famciclovir 125 Mg Tablet 125 Mg PO DAILY Ropinirole Hcl 0.25 Mg Tablet 0.25 Mg PO DAILY Hydroxychloroquine Sulfate 200 Mg Tablet 200 Mg PO DAILY Lyrica (Pregabalin) 150 Mg Capsule 150 Mg PO DAILY Furosemide 20 Mg Tablet 20 Mg PO DAILY Alprazolam 0.25 Mg Tablet 0.25 Mg PO Oxycodone Hcl 5 Mg Tablet 5 Mg PO PRN Q4HRS PRN Ibuprofen 400 Mg Tablet 400 Mg PO PRN DAILY PRN Multivitamins (Multivitamin) 1 Each Tablet 1 Each PO DAILY Oxycodone-Acetaminophen 10-325 (Oxycodone Hcl/Acetaminophen) 1 Each Tablet 1 Each PO PRN Q4-6HRS PRN Plaquenil (Hydroxychloroquine Sulfate) 200 Mg Tablet 200 Mg PO BID Vitals/I & O Vital Sign - Last 24 Hours 12/10/16 12/10/16 12/10/16 12/10/16 10:00 10:41 11:00 11:21 Pulse 117 118 Resp 34 32 B/P (MAP) 104/52 (69) 97/54 (68) Pulse Ox 91 99 100 100 O2 Delivery BiPAP/CPAP Ventilator Ventilator Ventilator 12/10/16 12/10/16 12/10/16 12/10/16 12:00 12:00 13:00 14:00 Temp 97.8 97.8 Pulse 108 106 98 Resp 30 29 29 B/P (MAP) 86/46 (59) 86/54 (65) 88/55 (66) Pulse Ox 99 98 100 O2 Delivery Mechanical Ventilator Ventilator Ventilator Ventilator 12/10/16 12/10/16 12/10/16 12/10/16 15:00 15:27 16:00 16:00 Temp 97.5 97.5 Pulse 109 95 Resp 16 25 B/P (MAP) 91/74 (80) 94/62 (73) Pulse Ox 99 100 100 O2 Delivery Ventilator Ventilator Mechanical Ventilator Ventilator 12/10/16 12/10/16 12/10/16 12/10/16 17:00 18:00 19:00 19:39 Pulse 98 104 96 Resp 28 30 27 B/P (MAP) 83/59 (67) 101/77 (85) 85/57 (66) Pulse Ox 100 100 100 100 O2 Delivery Ventilator Ventilator Ventilator Ventilator 12/10/16 12/10/16 12/10/16 12/10/16 19:49 20:01 20:35 21:00 Temp 97.9 97.9 Pulse 93 94 Resp 36 31 B/P (MAP) 80/54 (63) 85/53 (64) Pulse Ox 100 98 99 O2 Delivery Mechanical Ventilator Ventilator Ventilator Ventilator O2 Flow Rate 16.0 12/10/16 12/10/16 12/10/16 12/10/16 21:05 21:05 22:00 23:00 Pulse 87 88 Resp 16 20 25 B/P (MAP) 90/60 (70) 94/62 (73) Pulse Ox 99 100 100 100 O2 Delivery Ventilator Ventilator Ventilator Ventilator 12/10/16 12/10/16 12/11/16 12/11/16 23:10 23:56 00:00 00:12 Temp 97.6 97.6 Pulse 87 Resp 25 B/P (MAP) 88/58 (68) Pulse Ox 100 100 O2 Delivery Ventilator Mechanical Ventilator Ventilator 12/11/16 12/11/16 12/11/16 12/11/16 01:00 01:25 02:00 03:00 Pulse 89 88 90 Resp 22 22 22 B/P (MAP) 93/59 (70) 82/56 (65) 80/50 (60) Pulse Ox 100 100 100 100 O2 Delivery Ventilator Ventilator Ventilator Ventilator 12/11/16 12/11/16 12/11/16 12/11/16 03:17 04:00 04:00 05:00 Temp 98.0 98.0 Pulse 95 85 Resp 27 18 B/P (MAP) 89/60 (70) 99/61 (74) Pulse Ox 100 100 100 O2 Delivery Ventilator Mechanical Ventilator Ventilator Ventilator 12/11/16 12/11/16 12/11/16 12/11/16 05:38 06:00 07:00 07:27 Pulse 86 86 Resp 18 20 B/P (MAP) 91/57 (68) 91/54 (66) Pulse Ox 100 100 100 100 O2 Delivery Ventilator Ventilator Ventilator Ventilator O2 Flow Rate 20.0 12/11/16 12/11/16 12/11/16 08:00 08:57 09:00 Temp 97.8 97.8 Pulse 86 86 Resp 20 22 B/P (MAP) 97/57 (70) 97/56 (70) Pulse Ox 100 100 100 O2 Delivery Ventilator Ventilator Ventilator O2 Flow Rate 20.0 20.0 Intake and Output 12/10/16 12/10/16 12/11/16 15:00 23:00 07:00 Intake Total 300 ml 2127.9 ml 1406 ml Output Total 100 ml 305 ml 260 ml Balance 200 ml 1822.9 ml 1146 ml Nutrition Consultation Dietary Evaluation: Recommendations by RD: Increase Calorie Intake Comments: Rec. TF's with Diabetisource AC, goal rate 60 ml/hr start at 20 ml/hr, increase by 20 ml/hr q8h to goal flushes 200 cc q6h Expected Outcomes/Goals: tolerate the TF's at goal rate-in progress meet 75% estimated nutrition needs- in progress Malnutrition Findings: Reduced Case Therapist Strength: N/A Reduced Case Therapist Strength (Non-Sev: N/A Malnutrition related to morbid: No Weight Status: Obese REDD CAN MD Dec 11, 2016 09:21
--- NOTE | 2016-12-11 09:40 | RAD ---
Portable chest, 12/11/2016: History: Respiratory failure Comparison is made to yesterday's study. The tip of the ET tube lies well above the nunu. A left Port-A-Cath extends into the spur aspect of the right atrium. An NG tube extends into the stomach. The heart is within normal limits in size. There are patchy bilateral pulmonary infiltrates with poor definition of the underlying pulmonary vascularity. These infiltrates appear to have improved slightly, however, a better depth of inspiration may be contributing to that appearance. There are small bilateral pleural effusions, with slight interval increase on the left. IMPRESSION: 1. Various tubes and catheters remain in place in satisfactory positions. 2. Patchy bilateral pulmonary infiltrates appear to have improved slightly. 3. Ongoing small pleural effusions with slight increase on the left.
--- NOTE | 2016-12-11 09:46 | PDOC ---
PULMONARY PROGRESS NOTES Subjective ac mode Vitals Vital Signs Date Time Temp Pulse Resp B/P (MAP) Pulse Ox O2 Delivery O2 Flow Rate FiO2 12/11/16 09:00 86 22 97/56 (70) 100 Ventilator 20.0 12/11/16 08:00 97.8 97.8 HEENT: Other (nc at perrl, orally intubated, nose clear... neck no lap, no thyromegaly) Lungs: Clear, Other (rales) Cardiovascular: S1, S2 Abdomen: Soft, Non-tender, Other (no mass) Extremities: Other (edema) Skin: Warm Labs Laboratory Tests Test 12/09/16 13:40 12/10/16 09:00 12/10/16 09:20 12/10/16 11:50 O2 Saturation 98 % (92-99) 92 % (92-99) 99 % (92-99) Arterial Blood pH 7.40 (7.35-7.45) 7.03 (7.35-7.45) 7.29 (7.35-7.45) Arterial Blood pCO2 at Patient Temp 30 mmHg (35-46) 70 mmHg (35-46) 38 mmHg (35-46) Arterial Blood pO2 at Patient Temp 123 mmHg (75-108) 96 mmHg (75-108) 299 mmHg (75-108) Arterial Blood HCO3 18 mmol/L (21-28) 18 mmol/L (21-28) 18 mmol/L (21-28) Arterial Blood Base Excess -6 mmol/L (-3-3) -13 mmol/L (-3-3) -8 mmol/L (-3-3) FiO2 35 60 100 White Blood Count 8.4 x10^3/uL (4.0-11.0) Red Blood Count 3.72 x10^6/uL (3.50-5.40) Hemoglobin 11.2 g/dL (12.0-15.5) Hematocrit 34.5 % (36.0-47.0) Mean Corpuscular Volume 93 fL (79-100) Mean Corpuscular Hemoglobin 30 pg (25-35) Mean Corpuscular Hemoglobin Concent 33 g/dL (31-37) Red Cell Distribution Width 15.8 % (11.5-14.5) Platelet Count 62 x10^3/uL (140-400) Neutrophils (%) (Auto) 78 % (31-73) Lymphocytes (%) (Auto) 20 % (24-48) Monocytes (%) (Auto) 1 % (0-9) Eosinophils (%) (Auto) 1 % (0-3) Basophils (%) (Auto) 0 % (0-3) Neutrophils # (Auto) 6.5 x10^3uL (1.8-7.7) Lymphocytes # (Auto) 1.7 x10^3/uL (1.0-4.8) Monocytes # (Auto) 0.1 x10^3/uL (0.0-1.1) Eosinophils # (Auto) 0.1 x10^3/uL (0.0-0.7) Basophils # (Auto) 0.0 x10^3/uL (0.0-0.2) Sodium Level 144 mmol/L (136-145) Potassium Level 5.2 mmol/L (3.5-5.1) Chloride Level 114 mmol/L (98-107) Carbon Dioxide Level 21 mmol/L (21-32) Anion Gap 9 (6-14) Blood Urea Nitrogen 49 mg/dL (7-20) Creatinine 1.0 mg/dL (0.6-1.0) Estimated GFR (Cockcroft-Gault) 69.7 Glucose Level 306 mg/dL (70-99) Calcium Level 8.7 mg/dL (8.5-10.1) Test 12/10/16 23:43 12/11/16 04:55 12/11/16 05:54 12/11/16 08:10 Glucose (Fingerstick) 133 mg/dL (70-99) 151 mg/dL (70-99) White Blood Count 3.0 x10^3/uL (4.0-11.0) Red Blood Count 2.71 x10^6/uL (3.50-5.40) Hemoglobin 8.0 g/dL (12.0-15.5) Hematocrit 24.4 % (36.0-47.0) Mean Corpuscular Volume 90 fL (79-100) Mean Corpuscular Hemoglobin 30 pg (25-35) Mean Corpuscular Hemoglobin Concent 33 g/dL (31-37) Red Cell Distribution Width 15.1 % (11.5-14.5) Platelet Count 22 x10^3/uL (140-400) Neutrophils (%) (Auto) 79 % (31-73) Lymphocytes (%) (Auto) 17 % (24-48) Monocytes (%) (Auto) 4 % (0-9) Eosinophils (%) (Auto) 0 % (0-3) Basophils (%) (Auto) 0 % (0-3) Neutrophils # (Auto) 2.4 x10^3uL (1.8-7.7) Lymphocytes # (Auto) 0.5 x10^3/uL (1.0-4.8) Monocytes # (Auto) 0.1 x10^3/uL (0.0-1.1) Eosinophils # (Auto) 0.0 x10^3/uL (0.0-0.7) Basophils # (Auto) 0.0 x10^3/uL (0.0-0.2) Sodium Level 144 mmol/L (136-145) Potassium Level 4.1 mmol/L (3.5-5.1) Chloride Level 113 mmol/L (98-107) Carbon Dioxide Level 20 mmol/L (21-32) Anion Gap 11 (6-14) Blood Urea Nitrogen 59 mg/dL (7-20) Creatinine 0.9 mg/dL (0.6-1.0) Estimated GFR (Cockcroft-Gault) 78.7 Glucose Level 171 mg/dL (70-99) Calcium Level 8.2 mg/dL (8.5-10.1) O2 Saturation 98 % (92-99) Arterial Blood pH 7.45 (7.35-7.45) Arterial Blood pCO2 at Patient Temp 27 mmHg (35-46) Arterial Blood pO2 at Patient Temp 123 mmHg (75-108) Arterial Blood HCO3 18 mmol/L (21-28) Arterial Blood Base Excess -5 mmol/L (-3-3) FiO2 40 Laboratory Tests Test 12/10/16 11:50 12/10/16 23:43 12/11/16 04:55 12/11/16 05:54 O2 Saturation 99 % (92-99) Arterial Blood pH 7.29 (7.35-7.45) Arterial Blood pCO2 at Patient Temp 38 mmHg (35-46) Arterial Blood pO2 at Patient Temp 299 mmHg (75-108) Arterial Blood HCO3 18 mmol/L (21-28) Arterial Blood Base Excess -8 mmol/L (-3-3) FiO2 100 Glucose (Fingerstick) 133 mg/dL (70-99) 151 mg/dL (70-99) White Blood Count 3.0 x10^3/uL (4.0-11.0) Red Blood Count 2.71 x10^6/uL (3.50-5.40) Hemoglobin 8.0 g/dL (12.0-15.5) Hematocrit 24.4 % (36.0-47.0) Mean Corpuscular Volume 90 fL (79-100) Mean Corpuscular Hemoglobin 30 pg (25-35) Mean Corpuscular Hemoglobin Concent 33 g/dL (31-37) Red Cell Distribution Width 15.1 % (11.5-14.5) Platelet Count 22 x10^3/uL (140-400) Neutrophils (%) (Auto) 79 % (31-73) Lymphocytes (%) (Auto) 17 % (24-48) Monocytes (%) (Auto) 4 % (0-9) Eosinophils (%) (Auto) 0 % (0-3) Basophils (%) (Auto) 0 % (0-3) Neutrophils # (Auto) 2.4 x10^3uL (1.8-7.7) Lymphocytes # (Auto) 0.5 x10^3/uL (1.0-4.8) Monocytes # (Auto) 0.1 x10^3/uL (0.0-1.1) Eosinophils # (Auto) 0.0 x10^3/uL (0.0-0.7) Basophils # (Auto) 0.0 x10^3/uL (0.0-0.2) Sodium Level 144 mmol/L (136-145) Potassium Level 4.1 mmol/L (3.5-5.1) Chloride Level 113 mmol/L (98-107) Carbon Dioxide Level 20 mmol/L (21-32) Anion Gap 11 (6-14) Blood Urea Nitrogen 59 mg/dL (7-20) Creatinine 0.9 mg/dL (0.6-1.0) Estimated GFR (Cockcroft-Gault) 78.7 Glucose Level 171 mg/dL (70-99) Calcium Level 8.2 mg/dL (8.5-10.1) Test 12/11/16 08:10 O2 Saturation 98 % (92-99) Arterial Blood pH 7.45 (7.35-7.45) Arterial Blood pCO2 at Patient Temp 27 mmHg (35-46) Arterial Blood pO2 at Patient Temp 123 mmHg (75-108) Arterial Blood HCO3 18 mmol/L (21-28) Arterial Blood Base Excess -5 mmol/L (-3-3) FiO2 40 Medications Active Scripts Medications Dose Route/Sig Max Daily Dose Days Date Category Oxycodone Hcl 5 Mg Tablet 5 Mg PO PRN Q6HRS PRN 11/28/16 Rx Albuterol Sulfate Neb Soln (Albuterol Sulfate) 1.25 Mg/3 Ml Vial.neb 1 Vial NEB Q6HRS 11/25/16 Reported Ranitidine Hcl 150 Mg Capsule 75 Mg PO DAILY 11/25/16 Reported Ondansetron Hcl 8 Mg Tablet 8 Mg PO DAILY 11/25/16 Reported Azithromycin Tablet (Azithromycin) 250 Mg Tablet 250 Mg PO DAILY 11/25/16 Reported Bupropion Hcl 100 Mg Tablet 100 Mg PO BID 11/25/16 Reported Nasal Allergy [place] (Cromolyn Sodium) 13 Ml [place].pump 13 Ml NS DAILY 11/25/16 Reported Gabapentin 300 Mg Capsule 300 Mg PO BID 11/25/16 Reported Hydroxyzine Hcl 25 Mg Tablet 25 Mg PO DAILY 11/25/16 Reported Nystatin 15 Gm Cream..g. 15 Gm TP BID 11/25/16 Reported Duloxetine Hcl 60 Mg Capsule.dr 60 Mg PO DAILY 11/25/16 Reported Clonidine Hcl 0.1 Mg Tablet 0.1 Mg PO DAILY 11/25/16 Reported Lisinopril 20 Mg Tablet 20 Mg PO DAILY 11/25/16 Reported Famciclovir 125 Mg Tablet 125 Mg PO DAILY 11/25/16 Reported Ropinirole Hcl 0.25 Mg Tablet 0.25 Mg PO DAILY 11/25/16 Reported Hydroxychloroquine Sulfate 200 Mg Tablet 200 Mg PO DAILY 11/25/16 Reported Lyrica (Pregabalin) 150 Mg Capsule 150 Mg PO DAILY 11/25/16 Reported Furosemide 20 Mg Tablet 20 Mg PO DAILY 11/25/16 Reported Alprazolam 0.25 Mg Tablet 0.25 Mg PO 11/25/16 Reported Oxycodone Hcl 5 Mg Tablet 5 Mg PO PRN Q4HRS PRN 11/25/16 Reported Ibuprofen 400 Mg Tablet 400 Mg PO PRN DAILY PRN 05/11/15 Reported Multivitamins (Multivitamin) 1 Each Tablet 1 Each PO DAILY 05/11/15 Reported Oxycodone-Acetaminophen 10-325 (Oxycodone Hcl/Acetaminophen) 1 Each Tablet 1 Each PO PRN Q4-6HRS PRN 05/11/15 Reported Plaquenil (Hydroxychloroquine Sulfate) 200 Mg Tablet 200 Mg PO BID 08/19/13 Reported Comments cxr bilateral infiltrates no change Impression . 1. Acute respiratory failure, multifactorial in etiology. 2. Abnormal chest x-ray could be secondary to volume overload, congestive heart failure or pneumonia. 3. Septic shock, bacteremia, g + cocci 4. Hypotension, resolved. 5. Pancytopenia. 6. Systemic lupus erythematosus, immunocompromised. 7. Hyponatremia. 8. Acute kidney injury. 9. History of breast cancer. 10. Hepatitis C. 11. Gastroesophageal reflux disease. 12. MRSA colonization. Plan . REINTUBATED 12/10 REPEAT ABG ON VENT UPPER EXT EDEMA RESTART TUBE FEEDING 1. Titrate FiO2 to keep O2 saturation 94%. 2. U/S UPPER EXT 3. ANTIBX PER ID 4. Follow up sheikh cultures. 5. Protonix for stress ulcer prophylaxis. 6. Start DuoNeb. 7. SCDs. 8. DAILY CXR 9. solucortef DECREASE TO Q12 YASMANY HENSON MD Dec 11, 2016 09:46
--- NOTE | 2016-12-11 09:53 | PDOC ---
Provider Note Provider Note Onc consult dictated- [id number] Pancytopenia- Related to severe sepsis. Nml CBC with Dr. Nuñez late October 2016. Breast cancer-- Finished chemo 08/09 MRSA bacteremia, severe sepsis- On supportive care, ok to remove port if needed. LUE swelling- U/S ordered but can't tolerate anticoag until plt > 50. Dr. Nuñez will return tomorrow. FLACO SHAW DO Dec 11, 2016 09:53
--- NOTE | 2016-12-11 14:03 | RAD ---
Left upper extremity venous ultrasound, 12/11/2016: History: Severe swelling and bruising Duplex evaluation of the major veins in the left upper extremity was performed including grayscale, color-flow and spectral Doppler analysis. The left internal jugular, subclavian, axillary, brachial and basilic veins are patent. The cephalic vein was not clearly visualized. There are streaky subcutaneous edema in the antecubital fossa extending into the forearm. There is an ill-defined discoid shaped hypoechoic area in the antecubital fossa suggesting complex fluid, probably hemorrhage. It measures approximately 25 x 30 x 8 mm in greatest dimension. IMPRESSION: 1. No sonographic evidence of deep vein thrombosis in the left upper extremity. 2. Small complex fluid collection in the antecubital fossa probably representing a hematoma with adjacent subcutaneous edema.
--- NOTE | 2016-12-11 14:32 | PDOC ---
Provider Note Provider Note 12/11/2016 1420 Discussed with ID and requesting CHARLI to rule out endocarditis in regards to sepsis/bacteremia/MRSA. Pt currently intubated and on mechanical ventilation. Trying to notify sister to obtain consent for CHARLI and awaiting call. Tentatively schedule for tomorrow pending consent, no acute bleed, and PLT is not significantly low in which currently 22 which is a contraindication for CHARLI. SHANICE CARPIO SENIOR APPLICATION SOFTWARE ENGINEER Dec 11, 2016 14:32
[2016-12-11] MEDS: rOPINIRole 0.25 MG TABLET. PO SCH (20:53)
[2016-12-11] MEDS: CHLORHEXIDINE 0.12% 15 ML MOUTHWASH. MM SCH (20:53)
[2016-12-12] VITALS (24 sets, daily range): BP systolic 112–143; BP diastolic 57–77
--- NOTE | 2016-12-12 01:59 | CONS ---
DATE OF CONSULTATION: 12/11/2016 REFERRING PROVIDER: Dr. Sam Green. REASON FOR CONSULTATION: Pancytopenia. HISTORY OF PRESENT ILLNESS: The patient is a 55-year-old female who presented to the hospital on 12/06/2016, with severe sepsis, acute respiratory failure, and significant pancytopenia. She is followed by Dr. 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 She has several risk features. Ultimately, she agreed to have a mastectomy, which was completed in 04/2015. Her tumor was ER/AL negative, HER2 positive. She completed adjuvant Adriamycin/Cytoxan in 06/2015 and Taxol/Herceptin. She completed 1 year of Herceptin in 07/2016. A CT scan in 07/2016 showed indeterminant hilar lymph nodes and pulmonary nodules and bone scan was negative for any metastases. He last saw her in 10/2016 and had referred her to genetic counseling because she had multiple family members with malignancies and she desired prophylactic left mastectomy as well. Of note, on 11/14/2016, her CBC was essentially unremarkable with hemoglobin 12.8, platelets 129 (although in July it had been normal at 163), and WBC 4.8. Upon presentation here in the Emergency Room, her WBC was 1.7, hemoglobin has dropped to 8.0 and platelets have dropped to 22. She has grown MRSA from her blood and the port will likely be removed. This morning I also noted left upper extremity swelling, which is possibly new as well. Previous abdominal ultrasound in 06/2015 showed hepatomegaly and steatosis. PAST MEDICAL HISTORY: Neuropathy, diabetes, degenerative joint disease, hepatitis B and C, bipolar, breast cancer, lupus, rheumatoid arthritis and history of cervical cancer. PAST SURGICAL HISTORY: Appendectomy, cholecystectomy, right mastectomy, bone spur surgery and tonsillectomy. FAMILY HISTORY: Mom had lung cancer and reported liver cancer. Dad had diabetes and high cholesterol, maternal aunt with breast cancer, possibly maternal uncle also with breast cancer, paternal aunts with breast cancer. SOCIAL HISTORY: Per chart review, smoking 1 pack per day and previously told Dr. Nuñez she did not want to quit. She was living in a [facility] facility before her admission. Positive alcohol use, but I am not sure how much. ALLERGIES: PENICILLIN, VALIUM, IBUPROFEN. CURRENT MEDICATIONS: NovoLog, propofol, Lyrica, Xanax, Requip, Wellbutrin, Solu-Reyes, vancomycin, DuoNebs, fentanyl, Versed, Protonix, norepinephrine, albuterol, Zofran, hydralazine, and Tylenol. REVIEW OF SYSTEMS: Unobtainable due to the patient's sedated and intubated state. PHYSICAL EXAMINATION: VITAL SIGNS: Temperature 97.8, pulse 86, respiratory rate 20, blood pressure 97/57, 100% O2 on the ventilator. GENERAL: Sedated, no distress. HEENT: Eyes closed, endotracheal tube in place. CARDIOVASCULAR: Heart is regular in rhythm and rate. LUNGS: Clear to auscultation bilaterally. ABDOMEN: Soft, nontender. EXTREMITIES: 2+ edema in left upper extremity, 1+ edema in other extremities. NEUROLOGIC: Sedated. SKIN: No petechiae or excessive bruising. IMAGING AND LABORATORY DATA: Pertinent previous oncology records, labs, ultrasound and hospital admission records reviewed as above. ASSESSMENT AND PLAN: The patient is a 55-year-old female with the following medical problems: 1. Acute pancytopenia, likely related to her severe sepsis with methicillin-resistant Staphylococcus aureus bacteremia. Her CBC was normal in late 10/2016. I recommend continuing to treat the underlying infection as you are doing. Transfuse for hemoglobin less than 7, platelets less than 10. She has no evidence of bleeding at this time. Per discussion with nursing, her port may be removed. This is very reasonable as she has finished with her chemotherapy. 2. Left upper extremity swelling. Ultrasound has been ordered, but if positive for a DVT, we cannot use anticoagulation until her platelet count rises closer to 50. Thank you for alerting us of her admission. Dr. Nuñez will return and will continue following her tomorrow. FLACO SHAW DO DR: RANI/cricket JOB#: [id number] / [id number] ANDREI
[2016-12-12 04:23] LABS: BASO % 0 % (0-3); EOS % 0 % (0-3); HEMATOCRIT 21.2 % (36.0-47.0); HEMOGLOBIN 7.2 g/dL (12.0-15.5); LYMPH # 0.3 x10^3/uL (1.0-4.8); LYMPH % 13 % (24-48); MEAN CORPUSCULAR HEMOGLOBIN 30 pg (25-35); MEAN CORPUSCULAR HGB CONC 34 g/dL (31-37); MEAN CORPUSCULAR VOLUME 88 fL (79-100); MONO % 4 % (0-9); NEUT % 83 % (31-73); RED BLOOD COUNT 2.41 x10^6/uL (3.50-5.40); WHITE BLOOD COUNT 2.6 x10^3/uL (4.0-11.0)
[2016-12-12 04:37] LABS: CREATININE 1.1 mg/dL (0.6-1.0); GFR 62.4; PLATELET COUNT 24 x10^3/uL (140-400); POTASSIUM 4.4 mmol/L (3.5-5.1)
[2016-12-12] MEDS: PROPOFOL 100 ML IV PRN ×2 (04:56→11:14)
[2016-12-12] MEDS: VANCOMYCIN 1.25 GM in IV NORMAL SALINE 250ML 250 ML IV SCH ×2 (05:35→18:06)
[2016-12-12] MEDS: INSULIN ASPART 300 UNITS/3 ML INSULN.PEN SQ SCH ×4 (05:36→23:32)
[2016-12-12] MEDS ORDERED: IV RINGERS,LACTATED 1000ML 1,000 ML IV SCH (07:00)
[2016-12-12] MEDS ORDERED: fentaNYL PF VIAL 100 MCG/2 ML VIAL IV PRN ×2 (07:00)
[2016-12-12] MEDS ORDERED: MORPHINE SULFATE 2 MG/ML DISP.SYRIN. IV PRN (07:00)
[2016-12-12] MEDS ORDERED: HYDROmorphone 2 MG/ML VIAL IV PRN (07:00)
[2016-12-12] MEDS ORDERED: PROCHLORPERAZINE 10 MG/2 ML VIAL. IV PRN (07:00)
[2016-12-12] MEDS ORDERED: LIDOCAINE 1% 1 ML SYRINGE. ID PRN (07:00)
[2016-12-12] MEDS: IPRATRPIUM/ALBUTEROL 0.5/2.5MG 3 ML NEBU. NEB SCH ×4 (07:51→19:56)
[2016-12-12] MEDS: ALPRAZolam 0.25 MG TABLET PO SCH (08:04)
[2016-12-12] MEDS: PANTOPRAZOLE IV PUSH 40 MG VIAL. IVP SCH (08:04)
[2016-12-12] MEDS: buPROPion 100 MG TABLET PO SCH ×2 (08:04→21:08)
[2016-12-12] MEDS: HYDROCORTISONE SOD SUCC/PF 100 MG/2 ML VIAL. IV SCH ×2 (08:04→21:09)
[2016-12-12] MEDS: PREGABALIN 75 MG CAPSULE PO SCH (08:05)
[2016-12-12] MEDS: CHLORHEXIDINE 0.12% 15 ML MOUTHWASH. MM SCH ×2 (08:05→21:08)
[2016-12-12 08:08] LABS: HCO3 ABG 19 mmol/L (21-28); PCO2 ABG 30 mmHg (35-46); PH ABG 7.42 (7.35-7.45); PO2 ABG 131 mmHg (75-108); SAT O2 ABG 98 % (92-99)
[2016-12-12] MEDS ORDERED: LIDOCAINE 2% PF Vial for OR 5 ML VIAL. ONE (08:15)
[2016-12-12] MEDS ORDERED: PROPOFOL 0 ML IV ONE (08:15)
--- NOTE | 2016-12-12 08:15 | PDOC ---
Infectious Disease Note Subjective Subjective intubated on vent, awake ROS ROS unable to do Vital Sign Vital Signs Vital Signs Date Time Temp Pulse Resp B/P (MAP) Pulse Ox O2 Delivery O2 Flow Rate FiO2 12/12/16 07:52 100 Ventilator 12/12/16 07:00 97 24 128/69 (88) 16.0 12/12/16 04:00 97.6 97.6 Physical Exam PHYSICAL EXAM GENERAL: NAD, Alert on vent HEENT: PERRL, OC/OP NECK: Supple, no JVD, no LN LUNGS: Clear HEART: S1S2, no gallop, no murmur ABD: Soft, NT, no organomegaly, no rebound EXT: No edema, no cyanosis ACADEMIC PROGRAM SPECIALIST: Alert, on vent SKIN: No rash IV: ok Labs Lab Laboratory Tests Test 12/11/16 13:00 12/11/16 17:59 12/11/16 23:54 12/12/16 04:10 Glucose (Fingerstick) 164 mg/dL (70-99) 163 mg/dL (70-99) 153 mg/dL (70-99) White Blood Count 2.6 x10^3/uL (4.0-11.0) Red Blood Count 2.41 x10^6/uL (3.50-5.40) Hemoglobin 7.2 g/dL (12.0-15.5) Hematocrit 21.2 % (36.0-47.0) Mean Corpuscular Volume 88 fL (79-100) Mean Corpuscular Hemoglobin 30 pg (25-35) Mean Corpuscular Hemoglobin Concent 34 g/dL (31-37) Red Cell Distribution Width 15.0 % (11.5-14.5) Platelet Count 24 x10^3/uL (140-400) Neutrophils (%) (Auto) 83 % (31-73) Lymphocytes (%) (Auto) 13 % (24-48) Monocytes (%) (Auto) 4 % (0-9) Eosinophils (%) (Auto) 0 % (0-3) Basophils (%) (Auto) 0 % (0-3) Neutrophils # (Auto) 2.2 x10^3uL (1.8-7.7) Lymphocytes # (Auto) 0.3 x10^3/uL (1.0-4.8) Monocytes # (Auto) 0.1 x10^3/uL (0.0-1.1) Eosinophils # (Auto) 0.0 x10^3/uL (0.0-0.7) Basophils # (Auto) 0.0 x10^3/uL (0.0-0.2) Sodium Level 146 mmol/L (136-145) Potassium Level 4.4 mmol/L (3.5-5.1) Chloride Level 115 mmol/L (98-107) Carbon Dioxide Level 21 mmol/L (21-32) Anion Gap 10 (6-14) Blood Urea Nitrogen 64 mg/dL (7-20) Creatinine 1.1 mg/dL (0.6-1.0) Estimated GFR (Cockcroft-Gault) 62.4 Glucose Level 192 mg/dL (70-99) Calcium Level 8.0 mg/dL (8.5-10.1) Test 12/12/16 05:35 Glucose (Fingerstick) 171 mg/dL (70-99) Micro BLOOD CULTURE PRL Final Final report BLD CULT RESULT 1 Final Staphylococcus aureus Recovered from aerobic and anaerobic bottles. Methicillin resistant (MRSA) Based on resistance to oxacillin this isolate would be resistant to all currently available beta-lactam antimicrobial agents, with the exception of the newer cephalosporins with anti-MRSA activity, such as Ceftaroline ANTIMICROBIAL SUSCEPTIBILITY Final Comment S = Susceptible; I = Intermediate; R = Resistant P = Positive; N = Negative MICS are expressed in micrograms per mL Antibiotic RSLT#1 RSLT#2 RSLT#3 RSLT#4 Ciprofloxacin S Gentamicin S Levofloxacin S Linezolid S Nitrofurantoin S Oxacillin R Penicillin R Rifampin S Tetracycline S Trimethoprim/Sulfa S Vancomycin S Performed at: [facility] [address], [place] [id number] Service Worker Helper: Evelyn Reyes MD, Phone: [phone] Objective Assessment Sepsis. POA Hypotension, now off pressor Pancytopenia PCN allergy, reaction unknown Acute encephalopathy LEONARDO Acute respiratory failure h/o breast cancer, s/p chemo. Port still in place Lupus on Plaquenil Recent E. coli UTI MRSA nares, 11/25, 12/06 and sputum Diarrhea. C. diff. neg 12/06 BC + MRSA Plan Plan of Care cont Vanc, Monitor WBC, Cr and temp CHARLI pending AMANDA MARC MD Dec 12, 2016 08:15
[2016-12-12] MEDS ORDERED: ACETAMINOPHEN 650 MG/20.3 ML SOLUTION. PEG PRN (08:30)
--- NOTE | 2016-12-12 09:17 | PDOC ---
PROGRESS NOTES Chief Complaint Chief Complaint 1. Severe sepsis with Shock, s/p pressors 2. MRSA bacteremia, + nares 2. Pancytopenia: background of sepsis 3. Acute respiratory failure RE intubation 12/11 4. Malnutrition: MOderate - to severe 5. Lupus, immuno suppressive 6. Recently treated urinary tract infection, Escherichia coli. 7. Hyponatremia.:resolved 8. Mild hyperkalemia:resolved. \ 9. Hx breast CA History of Present Illness History of Present Illness Seen in ICU On vent, awake, calm CHart reviewed, other notes read LAbs:Na 146 K 4.4 CRea 1,1 PLatelets 24 - Contraindic for CHARLI as per cards, hgb 7 plus, WBC 2,.6 Heme onc note reviewed Needed to be reintubated yesterday PLAn: CPM Levo on Aug if needed MOnitor pancytopenia SCs only SUpprotive care Prog guarded Vent labs/bundle FUll code Vitals Vitals Vital Signs Date Time Temp Pulse Resp B/P (MAP) Pulse Ox O2 Delivery O2 Flow Rate FiO2 12/12/16 08:27 100 Ventilator 12/12/16 07:00 97 24 128/69 (88) 16.0 12/12/16 04:00 97.6 97.6 Physical Exam General: Cooperative, Other (sedated) Heart: Normal S1, Normal S2 Lungs: Clear, Other (rales) Abdomen: Normal bowel sounds, Soft Extremities: No clubbing Skin: Other Labs LABS Laboratory Tests Test 12/11/16 13:00 12/11/16 17:59 12/11/16 23:54 12/12/16 04:10 Glucose (Fingerstick) 164 mg/dL (70-99) 163 mg/dL (70-99) 153 mg/dL (70-99) White Blood Count 2.6 x10^3/uL (4.0-11.0) Red Blood Count 2.41 x10^6/uL (3.50-5.40) Hemoglobin 7.2 g/dL (12.0-15.5) Hematocrit 21.2 % (36.0-47.0) Mean Corpuscular Volume 88 fL (79-100) Mean Corpuscular Hemoglobin 30 pg (25-35) Mean Corpuscular Hemoglobin Concent 34 g/dL (31-37) Red Cell Distribution Width 15.0 % (11.5-14.5) Platelet Count 24 x10^3/uL (140-400) Neutrophils (%) (Auto) 83 % (31-73) Lymphocytes (%) (Auto) 13 % (24-48) Monocytes (%) (Auto) 4 % (0-9) Eosinophils (%) (Auto) 0 % (0-3) Basophils (%) (Auto) 0 % (0-3) Neutrophils # (Auto) 2.2 x10^3uL (1.8-7.7) Lymphocytes # (Auto) 0.3 x10^3/uL (1.0-4.8) Monocytes # (Auto) 0.1 x10^3/uL (0.0-1.1) Eosinophils # (Auto) 0.0 x10^3/uL (0.0-0.7) Basophils # (Auto) 0.0 x10^3/uL (0.0-0.2) Sodium Level 146 mmol/L (136-145) Potassium Level 4.4 mmol/L (3.5-5.1) Chloride Level 115 mmol/L (98-107) Carbon Dioxide Level 21 mmol/L (21-32) Anion Gap 10 (6-14) Blood Urea Nitrogen 64 mg/dL (7-20) Creatinine 1.1 mg/dL (0.6-1.0) Estimated GFR (Cockcroft-Gault) 62.4 Glucose Level 192 mg/dL (70-99) Calcium Level 8.0 mg/dL (8.5-10.1) Test 12/12/16 05:35 Glucose (Fingerstick) 171 mg/dL (70-99) Review of Systems Review of Systems on vent Assessment and Plan Assessmemt and Plan Problems Medical Problems: (1) Respiratory failure Status: Acute Problems: Comment Review of Relevant I have reviewed the following items anselmo (where applicable) has been applied. Labs Laboratory Tests Test 12/10/16 09:20 12/10/16 11:50 12/10/16 23:43 12/11/16 04:55 White Blood Count 8.4 x10^3/uL (4.0-11.0) 3.0 x10^3/uL (4.0-11.0) Red Blood Count 3.72 x10^6/uL (3.50-5.40) 2.71 x10^6/uL (3.50-5.40) Hemoglobin 11.2 g/dL (12.0-15.5) 8.0 g/dL (12.0-15.5) Hematocrit 34.5 % (36.0-47.0) 24.4 % (36.0-47.0) Mean Corpuscular Volume 93 fL (79-100) 90 fL (79-100) Mean Corpuscular Hemoglobin 30 pg (25-35) 30 pg (25-35) Mean Corpuscular Hemoglobin Concent 33 g/dL (31-37) 33 g/dL (31-37) Red Cell Distribution Width 15.8 % (11.5-14.5) 15.1 % (11.5-14.5) Platelet Count 62 x10^3/uL (140-400) 22 x10^3/uL (140-400) Neutrophils (%) (Auto) 78 % (31-73) 79 % (31-73) Lymphocytes (%) (Auto) 20 % (24-48) 17 % (24-48) Monocytes (%) (Auto) 1 % (0-9) 4 % (0-9) Eosinophils (%) (Auto) 1 % (0-3) 0 % (0-3) Basophils (%) (Auto) 0 % (0-3) 0 % (0-3) Neutrophils # (Auto) 6.5 x10^3uL (1.8-7.7) 2.4 x10^3uL (1.8-7.7) Lymphocytes # (Auto) 1.7 x10^3/uL (1.0-4.8) 0.5 x10^3/uL (1.0-4.8) Monocytes # (Auto) 0.1 x10^3/uL (0.0-1.1) 0.1 x10^3/uL (0.0-1.1) Eosinophils # (Auto) 0.1 x10^3/uL (0.0-0.7) 0.0 x10^3/uL (0.0-0.7) Basophils # (Auto) 0.0 x10^3/uL (0.0-0.2) 0.0 x10^3/uL (0.0-0.2) Sodium Level 144 mmol/L (136-145) 144 mmol/L (136-145) Potassium Level 5.2 mmol/L (3.5-5.1) 4.1 mmol/L (3.5-5.1) Chloride Level 114 mmol/L (98-107) 113 mmol/L (98-107) Carbon Dioxide Level 21 mmol/L (21-32) 20 mmol/L (21-32) Anion Gap 9 (6-14) 11 (6-14) Blood Urea Nitrogen 49 mg/dL (7-20) 59 mg/dL (7-20) Creatinine 1.0 mg/dL (0.6-1.0) 0.9 mg/dL (0.6-1.0) Estimated GFR (Cockcroft-Gault) 69.7 78.7 Glucose Level 306 mg/dL (70-99) 171 mg/dL (70-99) Calcium Level 8.7 mg/dL (8.5-10.1) 8.2 mg/dL (8.5-10.1) O2 Saturation 99 % (92-99) Arterial Blood pH 7.29 (7.35-7.45) Arterial Blood pCO2 at Patient Temp 38 mmHg (35-46) Arterial Blood pO2 at Patient Temp 299 mmHg (75-108) Arterial Blood HCO3 18 mmol/L (21-28) Arterial Blood Base Excess -8 mmol/L (-3-3) FiO2 100 Glucose (Fingerstick) 133 mg/dL (70-99) Test 12/11/16 05:54 12/11/16 08:10 12/11/16 13:00 12/11/16 17:59 Glucose (Fingerstick) 151 mg/dL (70-99) 164 mg/dL (70-99) 163 mg/dL (70-99) O2 Saturation 98 % (92-99) Arterial Blood pH 7.45 (7.35-7.45) Arterial Blood pCO2 at Patient Temp 27 mmHg (35-46) Arterial Blood pO2 at Patient Temp 123 mmHg (75-108) Arterial Blood HCO3 18 mmol/L (21-28) Arterial Blood Base Excess -5 mmol/L (-3-3) FiO2 40 Test 12/11/16 23:54 12/12/16 04:10 12/12/16 05:35 Glucose (Fingerstick) 153 mg/dL (70-99) 171 mg/dL (70-99) White Blood Count 2.6 x10^3/uL (4.0-11.0) Red Blood Count 2.41 x10^6/uL (3.50-5.40) Hemoglobin 7.2 g/dL (12.0-15.5) Hematocrit 21.2 % (36.0-47.0) Mean Corpuscular Volume 88 fL (79-100) Mean Corpuscular Hemoglobin 30 pg (25-35) Mean Corpuscular Hemoglobin Concent 34 g/dL (31-37) Red Cell Distribution Width 15.0 % (11.5-14.5) Platelet Count 24 x10^3/uL (140-400) Neutrophils (%) (Auto) 83 % (31-73) Lymphocytes (%) (Auto) 13 % (24-48) Monocytes (%) (Auto) 4 % (0-9) Eosinophils (%) (Auto) 0 % (0-3) Basophils (%) (Auto) 0 % (0-3) Neutrophils # (Auto) 2.2 x10^3uL (1.8-7.7) Lymphocytes # (Auto) 0.3 x10^3/uL (1.0-4.8) Monocytes # (Auto) 0.1 x10^3/uL (0.0-1.1) Eosinophils # (Auto) 0.0 x10^3/uL (0.0-0.7) Basophils # (Auto) 0.0 x10^3/uL (0.0-0.2) Sodium Level 146 mmol/L (136-145) Potassium Level 4.4 mmol/L (3.5-5.1) Chloride Level 115 mmol/L (98-107) Carbon Dioxide Level 21 mmol/L (21-32) Anion Gap 10 (6-14) Blood Urea Nitrogen 64 mg/dL (7-20) Creatinine 1.1 mg/dL (0.6-1.0) Estimated GFR (Cockcroft-Gault) 62.4 Glucose Level 192 mg/dL (70-99) Calcium Level 8.0 mg/dL (8.5-10.1) Laboratory Tests Test 12/11/16 13:00 12/11/16 17:59 12/11/16 23:54 12/12/16 04:10 Glucose (Fingerstick) 164 mg/dL (70-99) 163 mg/dL (70-99) 153 mg/dL (70-99) White Blood Count 2.6 x10^3/uL (4.0-11.0) Red Blood Count 2.41 x10^6/uL (3.50-5.40) Hemoglobin 7.2 g/dL (12.0-15.5) Hematocrit 21.2 % (36.0-47.0) Mean Corpuscular Volume 88 fL (79-100) Mean Corpuscular Hemoglobin 30 pg (25-35) Mean Corpuscular Hemoglobin Concent 34 g/dL (31-37) Red Cell Distribution Width 15.0 % (11.5-14.5) Platelet Count 24 x10^3/uL (140-400) Neutrophils (%) (Auto) 83 % (31-73) Lymphocytes (%) (Auto) 13 % (24-48) Monocytes (%) (Auto) 4 % (0-9) Eosinophils (%) (Auto) 0 % (0-3) Basophils (%) (Auto) 0 % (0-3) Neutrophils # (Auto) 2.2 x10^3uL (1.8-7.7) Lymphocytes # (Auto) 0.3 x10^3/uL (1.0-4.8) Monocytes # (Auto) 0.1 x10^3/uL (0.0-1.1) Eosinophils # (Auto) 0.0 x10^3/uL (0.0-0.7) Basophils # (Auto) 0.0 x10^3/uL (0.0-0.2) Sodium Level 146 mmol/L (136-145) Potassium Level 4.4 mmol/L (3.5-5.1) Chloride Level 115 mmol/L (98-107) Carbon Dioxide Level 21 mmol/L (21-32) Anion Gap 10 (6-14) Blood Urea Nitrogen 64 mg/dL (7-20) Creatinine 1.1 mg/dL (0.6-1.0) Estimated GFR (Cockcroft-Gault) 62.4 Glucose Level 192 mg/dL (70-99) Calcium Level 8.0 mg/dL (8.5-10.1) Test 12/12/16 05:35 Glucose (Fingerstick) 171 mg/dL (70-99) Microbiology 12/10/16 Blood Culture - Preliminary, Resulted NO GROWTH AFTER 2 DAYS 12/09/16 Stool Culture, Resulted Pending 12/09/16 Stool Culture Result 1 (LUCINA), Resulted Pending 12/09/16 Campylobacter Antigen Assay, Resulted Pending 12/09/16 Campylobactor Result 1, Resulted Pending 12/09/16 Shiga Toxin Test - Final, Resulted 12/08/16 Sputum Culture - Final, Complete 12/08/16 Sputum Result 1 - Final, Complete 12/08/16 Antimicrobic Susceptibility - Final, Complete 12/06/16 Urine Culture - Final, Complete 12/06/16 Urine Culture Result 1 (LUCINA) - Final, Complete Medications Current Medications Sodium Chloride 1,000 ml @ 1,000 mls/hr 1X ONCE IV Last administered on 16:18; Start 12/06/16 at 16:15; Stop 12/06/16 at 17:14; Status DC Vancomycin HCl (Vanco Per Pharmacy) 1 each PRN DAILY PRN MC SEE COMMENTS Last administered on 12/11/16 08:24; Start 12/06/16 at 17:00 Levofloxacin/ Dextrose 150 ml @ 100 mls/hr 1X ONCE IV Last administered on 20:04; Start 12/06/16 at 17:00; Stop 12/06/16 at 18:29; Status DC Vancomycin HCl 2 gm/Sodium Chloride 500 ml @ 250 mls/hr 1X ONCE IV Last administered on 12/06/16 17:11; Start 12/06/16 at 17:00; Stop 12/06/16 at 18:59 ; Status DC Sodium Chloride 1,000 ml @ 1,000 mls/hr 1X ONCE IV Last administered on 17:09; Start 12/06/16 at 17:00; Stop 12/06/16 at 17:59; Status DC Meropenem 500 mg/ Sodium Chloride 50 ml @ 100 mls/hr Q8HRS IV Last administered on 12/10/16 07:30; Start 12/06/16 at 18:00; Stop 12/10/16 at 08:13 ; Status DC Dopamine HCl/ Dextrose 250 ml @ 16.414 mls/ hr 1X ONCE IV Last administered on 12/06/16 17:41; Start 12/06/16 at 17:15; Stop 12/07/16 at 08:28; Status DC Etomidate (Amidate) 20 mg 1X ONCE IV Last administered on 12/06/16 17:19; Start 12/06/16 at 17:15; Stop 12/06/16 at 17:17; Status DC Succinylcholine Chloride (Anectine) 100 mg 1X ONCE IV Last administered on 17:20; Start 12/06/16 at 17:15; Stop 12/06/16 at 17:17; Status DC Vancomycin HCl 1.25 gm/Sodium Chloride 250 ml @ 167 mls/hr Q24H IV Last administered on 12/07/16 18:39; Start 12/07/16 at 17:00; Stop 12/07/16 at 23:00 ; Status DC Vancomycin HCl 1 each 1X ONCE MC ; Start 12/07/16 at 16:30; Stop 12/07/16 at 16 :31; Status Cancel Midazolam HCl 100 ml @ As Directed STK-MED ONCE IV ; Start 12/06/16 at 17:36; Stop 12/06/16 at 17:37; Status DC Midazolam HCl (Versed) 5 mg STK-MED ONCE .ROUTE ; Start 12/06/16 at 17:37; Stop 12/06/16 at 17:38; Status DC Midazolam HCl (Versed) 5 mg PRN Q10MIN PRN IV SEDATION; Start 12/06/16 at 17:45 Hydrocortisone Sodium Succinate (Solu-CORTEF) 100 mg Q8HRS IV Last administered on 12/09/16 13:55; Start 12/06/16 at 18:30; Stop 12/09/16 at 16:21 ; Status DC Norepinephrine Bitartrate 16 mg/ Sodium Chloride 266 ml @ 0 mls/hr CONT PRN IV SEE I/O RECORD; Start 12/06/16 at 19:00; Status UNV Pantoprazole Sodium (Protonix Vial) 40 mg DAILYAC IVP Last administered on 12/12 08:04; Start 12/06/16 at 19:30 Acetaminophen (Tylenol) 325 mg PRN Q6HRS PRN PO MILD PAIN / TEMP; Start at 19:00 Hydralazine HCl (Apresoline) 10 mg PRN Q4HRS PRN IVP ELEVATED BP, SEE COMMENTS Last administered on 12/10/16 07:29; Start 12/06/16 at 19:00 Ondansetron HCl (Zofran) 4 mg PRN Q8HRS PRN IV NAUSEA/VOMITING; Start 12/06/16 at 19:00; Stop 12/12/16 at 08:31; Status DC Albuterol Sulfate (Ventolin Neb Soln) 2.5 mg PRN Q4HRS PRN NEB SHORTNESS OF BREATH; Start 12/06/16 at 19:00 Norepinephrine Bitartrate 250 ml @ 1.875 mls/ hr CONT PRN IV SEE I/O RECORD Last administered on 12/06/16 19:55; Start 12/06/16 at 19:00 Sodium Chloride 1,000 ml @ 1,000 mls/hr 1X ONCE IV Last administered on 19:56; Start 12/06/16 at 19:15; Stop 12/06/16 at 20:14; Status DC Sodium Chloride 1,000 ml @ 75 mls/hr [id number] IV Last administered on 21:55; Start 12/06/16 at 19:15; Stop 12/09/16 at 18:44; Status DC Pneumococcal Polyvalent Vaccine (Do NOT chart on this placeholder) 1 each PRN DAILY PRN MC PT UNABLE TO RESPOND; Start 12/07/16 at 09:30; Status Cancel Pneumococcal Polyvalent Vaccine (Pneumovax 23) 0.5 ml ONCE ONCE VAX IM ; Start 12/08/16 at 09:00; Stop 12/08/16 at 09:01; Status DC Albuterol/ Ipratropium (Duoneb) 3 ml RTQID NEB Last administered on 12/12/16 07:51; Start 12/07/16 at 12:00 Midazolam HCl 100 ml @ 0 mls/hr CONT PRN IV SEE I/O RECORD Last administered on 12/07/16 10:29; Start 12/07/16 at 10:15 Fentanyl Citrate (Fentanyl 2ml Vial) 25 mcg PRN Q1HR PRN IV PAIN Last administered on 12/10/16 20:35; Start 12/07/16 at 10:45 Pantoprazole Sodium (Protonix Vial) 40 mg DAILYAC IVP ; Start 12/07/16 at 17:00 ; Status Cancel Vancomycin HCl 1.25 gm/Sodium Chloride 250 ml @ 167 mls/hr Q12H IV Last administered on 12/12/16 05:35; Start 12/08/16 at 06:00 Vancomycin HCl 1 each 1X ONCE MC ; Start 12/08/16 at 17:30; Stop 12/08/16 at 17 :31; Status DC Vancomycin HCl 1 gm/Sodium Chloride 250 ml @ 250 mls/hr Q12H IV ; Start at 18:00; Status Cancel Chlorhexidine Gluconate (Peridex) 15 ml BID SWSP ; Start 12/09/16 at 21:00; Stop 12/10/16 at 07:23; Status DC Hydrocortisone Sodium Succinate (Solu-CORTEF) 100 mg Q12HR IV Last administered on 12/12/16 08:04; Start 12/09/16 at 21:00 Amino Acids/ Glycerin/ Electrolytes 1,000 ml @ 40 mls/hr Q24H IV Last administered on 12/09/16 17:56; Start 12/09/16 at 17:00; Stop 12/10/16 at 14:16 ; Status DC Alprazolam (Xanax) 0.25 mg DAILY PO Last administered on 12/12/16 08:04; Start 12/10/16 at 09:00 Bupropion HCl (Wellbutrin) 100 mg BID PO Last administered on 12/12/16 08:04; Start 12/09/16 at 21:00 Gabapentin (Neurontin) 300 mg BID PO ; Start 12/09/16 at 21:00; Status Cancel Ropinirole HCl (Requip) 0.25 mg QHS PO Last administered on 12/11/16 20:53; Start 12/09/16 at 21:00 Pregabalin (Lyrica) 150 mg DAILY PO Last administered on 12/12/16 08:05; Start 12/10/16 at 09:00 Epinephrine (S2 Racepinephrine) 0.5 ml 1X ONCE NEB Last administered on 07:45; Start 12/10/16 at 07:45; Stop 12/10/16 at 07:46; Status DC Lorazepam (Ativan) 2 mg 1X ONCE IV Last administered on 12/10/16 08:33; Start 12/10/16 at 08:00; Stop 12/10/16 at 08:01; Status DC Succinylcholine Chloride (Anectine) 200 mg STK-MED ONCE .ROUTE ; Start 12/10/16 at 10:28; Stop 12/10/16 at 10:29; Status DC Propofol 100 ml @ As Directed STK-MED ONCE IV ; Start 12/10/16 at 10:28; Stop 12/10/16 at 10:29; Status DC Calcium Gluconate (Calcium Gluconate) 1,000 mg 1X ONCE IVP Last administered on 12/10/16 11:41; Start 12/10/16 at 11:30; Stop 12/10/16 at 11:31; Status DC Succinylcholine Chloride (Anectine) 200 mg 1X ONCE IV Last administered on 11:41; Start 12/10/16 at 11:30; Stop 12/10/16 at 11:31; Status DC Propofol 100 ml @ 0 mls/hr CONT PRN IV SEE I/O RECORD Last administered on 12/12 04:56; Start 12/10/16 at 11:30 Insulin Aspart (NovoLOG) 0-5 UNITS TIDWMEALS SQ ; Start 12/11/16 at 08:00; Stop 12/11/16 at 08:00; Status DC Dextrose (Dextrose 50%-Water Syringe) 12.5 gm PRN Q15MIN PRN IV SEE COMMENTS; Start 12/10/16 at 20:30 Insulin Aspart (NovoLOG) 0-5 UNITS Q6HRS SQ Last administered on 12/12/16 05: 36; Start 12/11/16 at 00:00 Chlorhexidine Gluconate (Peridex) 15 ml BID MM Last administered on 12/12/16 08:05; Start 12/11/16 at 21:00 Fentanyl Citrate (Fentanyl 2ml Vial) 25 mcg PRN Q5MIN PRN IV MILD PAIN; Start 12/12/16 at 07:00; Stop 12/13/16 at 06:59 Fentanyl Citrate (Fentanyl 2ml Vial) 50 mcg PRN Q5MIN PRN IV MODERATE PAIN; Start 12/12/16 at 07:00; Stop 12/13/16 at 06:59 Morphine Sulfate 1 mg PRN Q10MIN PRN IV SEVERE PAIN; Start 12/12/16 at 07:00; Stop 12/13/16 at 06:59 Ringer's Solution 1,000 ml @ 30 mls/hr Q24H IV ; Start 12/12/16 at 07:00; Stop 12/12/16 at 18:59 Lidocaine HCl 2 ml PRN 1X PRN ID PRIOR TO IV START; Start 12/12/16 at 07:00; Stop 12/13/16 at 06:59 Hydromorphone HCl (Dilaudid) 0.5 mg PRN Q10MIN PRN IV SEV PAIN, Second choice; Start 12/12/16 at 07:00; Stop 12/13/16 at 06:59 Prochlorperazine Edisylate (Compazine) 5 mg PACU PRN PRN IV NAUSEA, MRX1; Start 12/12/16 at 07:00; Stop 12/13/16 at 06:59 Lidocaine HCl (Lidocaine Pf 2% Vial) 5 ml STK-MED ONCE .ROUTE ; Start 12/12/16 at 08:15; Stop 12/12/16 at 08:16; Status DC Propofol 20 ml @ As Directed STK-MED ONCE IV ; Start 12/12/16 at 08:15; Stop at 08:16; Status DC Ondansetron HCl (Zofran) 4 mg PRN Q6HRS PRN IV NAUSEA/VOMITING; Start 12/12/16 at 19:00 Acetaminophen (Tylenol) 650 mg PRN Q6HRS PRN PEG MILD PAIN / TEMP; Start at 08:30 Active Scripts Active Oxycodone Hcl 5 Mg Tablet 5 Mg PO PRN Q6HRS PRN Reported Albuterol Sulfate Neb Soln (Albuterol Sulfate) 1.25 Mg/3 Ml Vial.neb 1 Vial NEB Q6HRS Ranitidine Hcl 150 Mg Capsule 75 Mg PO DAILY Ondansetron Hcl 8 Mg Tablet 8 Mg PO DAILY Azithromycin Tablet (Azithromycin) 250 Mg Tablet 250 Mg PO DAILY Bupropion Hcl 100 Mg Tablet 100 Mg PO BID Nasal Allergy Argos (Cromolyn Sodium) 13 Ml Argos.pump 13 Ml NS DAILY Gabapentin 300 Mg Capsule 300 Mg PO BID Hydroxyzine Hcl 25 Mg Tablet 25 Mg PO DAILY Nystatin 15 Gm Cream..g. 15 Gm TP BID Duloxetine Hcl 60 Mg Capsule.dr 60 Mg PO DAILY Clonidine Hcl 0.1 Mg Tablet 0.1 Mg PO DAILY Lisinopril 20 Mg Tablet 20 Mg PO DAILY Famciclovir 125 Mg Tablet 125 Mg PO DAILY Ropinirole Hcl 0.25 Mg Tablet 0.25 Mg PO DAILY Hydroxychloroquine Sulfate 200 Mg Tablet 200 Mg PO DAILY Lyrica (Pregabalin) 150 Mg Capsule 150 Mg PO DAILY Furosemide 20 Mg Tablet 20 Mg PO DAILY Alprazolam 0.25 Mg Tablet 0.25 Mg PO Oxycodone Hcl 5 Mg Tablet 5 Mg PO PRN Q4HRS PRN Ibuprofen 400 Mg Tablet 400 Mg PO PRN DAILY PRN Multivitamins (Multivitamin) 1 Each Tablet 1 Each PO DAILY Oxycodone-Acetaminophen 10-325 (Oxycodone Hcl/Acetaminophen) 1 Each Tablet 1 Each PO PRN Q4-6HRS PRN Plaquenil (Hydroxychloroquine Sulfate) 200 Mg Tablet 200 Mg PO BID Vitals/I & O Vital Sign - Last 24 Hours 12/11/16 12/11/16 12/11/16 12/11/16 10:00 11:00 11:15 12:00 Pulse 94 88 Resp B/P (MAP) 104/65 (78) 90/58 (69) Pulse Ox 99 99 100 O2 Delivery Ventilator Ventilator Ventilator Mechanical Ventilator O2 Flow Rate 16.0 16.0 16.0 12/11/16 12/11/16 12/11/16 12/11/16 12:00 13:00 13:03 14:00 Temp 97.7 97.7 Pulse 98 96 89 Resp B/P (MAP) 100/57 (71) 94/55 (68) 92/54 (67) Pulse Ox 98 99 99 94 O2 Delivery Ventilator Ventilator Ventilator Ventilator O2 Flow Rate 16.0 16.0 16.0 12/11/16 12/11/16 12/11/16 12/11/16 15:00 15:14 16:00 16:00 Pulse 86 90 Resp B/P (MAP) 83/56 (65) 104/61 (75) Pulse Ox 100 100 100 O2 Delivery Ventilator Ventilator Ventilator Mechanical Ventilator O2 Flow Rate 16.0 16.0 16.0 12/11/16 12/11/16 12/11/16 12/11/16 16:52 17:00 18:00 19:00 Temp 97.7 97.7 Pulse 96 102 92 Resp 32 25 16 B/P (MAP) 103/61 (75) 116/60 (78) 97/54 (68) Pulse Ox 100 98 99 100 O2 Delivery Ventilator Ventilator Ventilator Ventilator O2 Flow Rate 16.0 16.0 12/11/16 12/11/16 12/11/16 12/11/16 19:36 20:00 20:13 21:00 Temp 97.8 97.8 Pulse 87 85 Resp 16 16 B/P (MAP) 90/53 (65) 103/59 (74) Pulse Ox 100 100 100 O2 Delivery Mechanical Ventilator Ventilator Ventilator Ventilator 12/11/16 12/11/16 12/11/16 12/11/16 21:40 22:00 23:00 23:59 Pulse 88 89 Resp 16 16 B/P (MAP) 107/59 (75) 117/65 (82) Pulse Ox 100 100 100 O2 Delivery Ventilator Ventilator Ventilator Mechanical Ventilator 12/12/16 12/12/16 12/12/16 12/12/16 00:00 00:19 01:00 02:00 Temp 97.6 97.6 Pulse 91 86 90 Resp 16 16 16 B/P (MAP) 117/60 (79) 112/61 (78) 114/67 (83) Pulse Ox 100 100 100 100 O2 Delivery Ventilator Ventilator Ventilator Ventilator 12/12/16 12/12/16 12/12/16 12/12/16 02:10 03:00 03:45 04:00 Temp 97.6 97.6 Pulse 92 92 Resp 16 16 B/P (MAP) 118/63 (81) 122/65 (84) Pulse Ox 100 100 100 O2 Delivery Ventilator Ventilator Mechanical Ventilator Ventilator 12/12/16 12/12/16 12/12/16 12/12/16 04:06 05:00 05:38 06:00 Pulse 94 92 Resp 16 18 B/P (MAP) 119/60 (79) 119/74 (89) Pulse Ox 100 100 100 100 O2 Delivery Ventilator Ventilator Ventilator Ventilator 12/12/16 12/12/16 12/12/16 12/12/16 07:00 07:52 08:00 08:27 Pulse 97 Resp 24 B/P (MAP) 128/69 (88) Pulse Ox 99 100 100 O2 Delivery Ventilator Ventilator Mechanical Ventilator Ventilator O2 Flow Rate 16.0 Intake and Output 12/11/16 12/11/16 12/12/16 15:00 23:00 07:00 Intake Total 800 ml 1870 ml 1584 ml Output Total 100 ml 658 ml 380 ml Balance 700 ml 1212 ml 1204 ml Nutrition Consultation Dietary Evaluation: Recommendations by RD: Increase Calorie Intake Comments: Rec. TF's with Diabetisource AC, goal rate 60 ml/hr start at 20 ml/hr, increase by 20 ml/hr q8h to goal flushes 200 cc q6h Expected Outcomes/Goals: tolerate the TF's at goal rate-in progress meet 75% estimated nutrition needs- in progress Malnutrition Findings: Reduced Clinical Exercise Specialist Strength: N/A Reduced Clinical Exercise Specialist Strength (Non-Sev: N/A Malnutrition related to morbid: No Weight Status: Obese SHARIF REYNA MD Dec 12, 2016 09:17
--- NOTE | 2016-12-12 09:46 | PDOC ---
PULMONARY PROGRESS NOTES Subjective Pt seen on PS no major distress Vitals Vital Signs Date Time Temp Pulse Resp B/P (MAP) Pulse Ox O2 Delivery O2 Flow Rate FiO2 12/12/16 09:00 91 20 136/69 (91) 99 Ventilator 12/12/16 08:00 98.0 98.0 12/12/16 07:00 16.0 HEENT: Other (nc at perrl, orally intubated, nose clear... neck no lap, no thyromegaly) Lungs: Clear, Wheezing, Other (poor airlfolow) Cardiovascular: S1, S2 Abdomen: Soft, Non-tender, Other (no mass) Neuro Exam: Alert Extremities: Other (edema) Skin: Warm Labs Laboratory Tests Test 12/10/16 11:50 12/10/16 23:43 12/11/16 04:55 12/11/16 05:54 O2 Saturation 99 % (92-99) Arterial Blood pH 7.29 (7.35-7.45) Arterial Blood pCO2 at Patient Temp 38 mmHg (35-46) Arterial Blood pO2 at Patient Temp 299 mmHg (75-108) Arterial Blood HCO3 18 mmol/L (21-28) Arterial Blood Base Excess -8 mmol/L (-3-3) FiO2 100 Glucose (Fingerstick) 133 mg/dL (70-99) 151 mg/dL (70-99) White Blood Count 3.0 x10^3/uL (4.0-11.0) Red Blood Count 2.71 x10^6/uL (3.50-5.40) Hemoglobin 8.0 g/dL (12.0-15.5) Hematocrit 24.4 % (36.0-47.0) Mean Corpuscular Volume 90 fL (79-100) Mean Corpuscular Hemoglobin 30 pg (25-35) Mean Corpuscular Hemoglobin Concent 33 g/dL (31-37) Red Cell Distribution Width 15.1 % (11.5-14.5) Platelet Count 22 x10^3/uL (140-400) Neutrophils (%) (Auto) 79 % (31-73) Lymphocytes (%) (Auto) 17 % (24-48) Monocytes (%) (Auto) 4 % (0-9) Eosinophils (%) (Auto) 0 % (0-3) Basophils (%) (Auto) 0 % (0-3) Neutrophils # (Auto) 2.4 x10^3uL (1.8-7.7) Lymphocytes # (Auto) 0.5 x10^3/uL (1.0-4.8) Monocytes # (Auto) 0.1 x10^3/uL (0.0-1.1) Eosinophils # (Auto) 0.0 x10^3/uL (0.0-0.7) Basophils # (Auto) 0.0 x10^3/uL (0.0-0.2) Sodium Level 144 mmol/L (136-145) Potassium Level 4.1 mmol/L (3.5-5.1) Chloride Level 113 mmol/L (98-107) Carbon Dioxide Level 20 mmol/L (21-32) Anion Gap 11 (6-14) Blood Urea Nitrogen 59 mg/dL (7-20) Creatinine 0.9 mg/dL (0.6-1.0) Estimated GFR (Cockcroft-Gault) 78.7 Glucose Level 171 mg/dL (70-99) Calcium Level 8.2 mg/dL (8.5-10.1) Test 12/11/16 08:10 12/11/16 13:00 12/11/16 17:59 12/11/16 23:54 O2 Saturation 98 % (92-99) Arterial Blood pH 7.45 (7.35-7.45) Arterial Blood pCO2 at Patient Temp 27 mmHg (35-46) Arterial Blood pO2 at Patient Temp 123 mmHg (75-108) Arterial Blood HCO3 18 mmol/L (21-28) Arterial Blood Base Excess -5 mmol/L (-3-3) FiO2 40 Glucose (Fingerstick) 164 mg/dL (70-99) 163 mg/dL (70-99) 153 mg/dL (70-99) Test 12/12/16 04:10 12/12/16 05:35 White Blood Count 2.6 x10^3/uL (4.0-11.0) Red Blood Count 2.41 x10^6/uL (3.50-5.40) Hemoglobin 7.2 g/dL (12.0-15.5) Hematocrit 21.2 % (36.0-47.0) Mean Corpuscular Volume 88 fL (79-100) Mean Corpuscular Hemoglobin 30 pg (25-35) Mean Corpuscular Hemoglobin Concent 34 g/dL (31-37) Red Cell Distribution Width 15.0 % (11.5-14.5) Platelet Count 24 x10^3/uL (140-400) Neutrophils (%) (Auto) 83 % (31-73) Lymphocytes (%) (Auto) 13 % (24-48) Monocytes (%) (Auto) 4 % (0-9) Eosinophils (%) (Auto) 0 % (0-3) Basophils (%) (Auto) 0 % (0-3) Neutrophils # (Auto) 2.2 x10^3uL (1.8-7.7) Lymphocytes # (Auto) 0.3 x10^3/uL (1.0-4.8) Monocytes # (Auto) 0.1 x10^3/uL (0.0-1.1) Eosinophils # (Auto) 0.0 x10^3/uL (0.0-0.7) Basophils # (Auto) 0.0 x10^3/uL (0.0-0.2) Sodium Level 146 mmol/L (136-145) Potassium Level 4.4 mmol/L (3.5-5.1) Chloride Level 115 mmol/L (98-107) Carbon Dioxide Level 21 mmol/L (21-32) Anion Gap 10 (6-14) Blood Urea Nitrogen 64 mg/dL (7-20) Creatinine 1.1 mg/dL (0.6-1.0) Estimated GFR (Cockcroft-Gault) 62.4 Glucose Level 192 mg/dL (70-99) Calcium Level 8.0 mg/dL (8.5-10.1) Glucose (Fingerstick) 171 mg/dL (70-99) Laboratory Tests Test 12/11/16 13:00 12/11/16 17:59 12/11/16 23:54 12/12/16 04:10 Glucose (Fingerstick) 164 mg/dL (70-99) 163 mg/dL (70-99) 153 mg/dL (70-99) White Blood Count 2.6 x10^3/uL (4.0-11.0) Red Blood Count 2.41 x10^6/uL (3.50-5.40) Hemoglobin 7.2 g/dL (12.0-15.5) Hematocrit 21.2 % (36.0-47.0) Mean Corpuscular Volume 88 fL (79-100) Mean Corpuscular Hemoglobin 30 pg (25-35) Mean Corpuscular Hemoglobin Concent 34 g/dL (31-37) Red Cell Distribution Width 15.0 % (11.5-14.5) Platelet Count 24 x10^3/uL (140-400) Neutrophils (%) (Auto) 83 % (31-73) Lymphocytes (%) (Auto) 13 % (24-48) Monocytes (%) (Auto) 4 % (0-9) Eosinophils (%) (Auto) 0 % (0-3) Basophils (%) (Auto) 0 % (0-3) Neutrophils # (Auto) 2.2 x10^3uL (1.8-7.7) Lymphocytes # (Auto) 0.3 x10^3/uL (1.0-4.8) Monocytes # (Auto) 0.1 x10^3/uL (0.0-1.1) Eosinophils # (Auto) 0.0 x10^3/uL (0.0-0.7) Basophils # (Auto) 0.0 x10^3/uL (0.0-0.2) Sodium Level 146 mmol/L (136-145) Potassium Level 4.4 mmol/L (3.5-5.1) Chloride Level 115 mmol/L (98-107) Carbon Dioxide Level 21 mmol/L (21-32) Anion Gap 10 (6-14) Blood Urea Nitrogen 64 mg/dL (7-20) Creatinine 1.1 mg/dL (0.6-1.0) Estimated GFR (Cockcroft-Gault) 62.4 Glucose Level 192 mg/dL (70-99) Calcium Level 8.0 mg/dL (8.5-10.1) Test 12/12/16 05:35 Glucose (Fingerstick) 171 mg/dL (70-99) Medications Active Scripts Medications Dose Route/Sig Max Daily Dose Days Date Category Oxycodone Hcl 5 Mg Tablet 5 Mg PO PRN Q6HRS PRN 11/28/16 Rx Albuterol Sulfate Neb Soln (Albuterol Sulfate) 1.25 Mg/3 Ml Vial.neb 1 Vial NEB Q6HRS 11/25/16 Reported Ranitidine Hcl 150 Mg Capsule 75 Mg PO DAILY 11/25/16 Reported Ondansetron Hcl 8 Mg Tablet 8 Mg PO DAILY 11/25/16 Reported Azithromycin Tablet (Azithromycin) 250 Mg Tablet 250 Mg PO DAILY 11/25/16 Reported Bupropion Hcl 100 Mg Tablet 100 Mg PO BID 11/25/16 Reported Nasal Allergy Sycamore (Cromolyn Sodium) 13 Ml Sycamore.pump 13 Ml NS DAILY 11/25/16 Reported Gabapentin 300 Mg Capsule 300 Mg PO BID 11/25/16 Reported Hydroxyzine Hcl 25 Mg Tablet 25 Mg PO DAILY 11/25/16 Reported Nystatin 15 Gm Cream..g. 15 Gm TP BID 11/25/16 Reported Duloxetine Hcl 60 Mg Capsule.dr 60 Mg PO DAILY 11/25/16 Reported Clonidine Hcl 0.1 Mg Tablet 0.1 Mg PO DAILY 11/25/16 Reported Lisinopril 20 Mg Tablet 20 Mg PO DAILY 11/25/16 Reported Famciclovir 125 Mg Tablet 125 Mg PO DAILY 11/25/16 Reported Ropinirole Hcl 0.25 Mg Tablet 0.25 Mg PO DAILY 11/25/16 Reported Hydroxychloroquine Sulfate 200 Mg Tablet 200 Mg PO DAILY 11/25/16 Reported Lyrica (Pregabalin) 150 Mg Capsule 150 Mg PO DAILY 11/25/16 Reported Furosemide 20 Mg Tablet 20 Mg PO DAILY 11/25/16 Reported Alprazolam 0.25 Mg Tablet 0.25 Mg PO 11/25/16 Reported Oxycodone Hcl 5 Mg Tablet 5 Mg PO PRN Q4HRS PRN 11/25/16 Reported Ibuprofen 400 Mg Tablet 400 Mg PO PRN DAILY PRN 05/11/15 Reported Multivitamins (Multivitamin) 1 Each Tablet 1 Each PO DAILY 05/11/15 Reported Oxycodone-Acetaminophen 10-325 (Oxycodone Hcl/Acetaminophen) 1 Each Tablet 1 Each PO PRN Q4-6HRS PRN 05/11/15 Reported Plaquenil (Hydroxychloroquine Sulfate) 200 Mg Tablet 200 Mg PO BID 08/19/13 Reported Comments cxr bilateral infiltrates no change Impression . 1. Acute respiratory failure, multifactorial in etiology. 2. Abnormal chest x-ray could be secondary to volume overload, congestive heart failure or pneumonia. 3. Septic shock, bacteremia, g + cocci 4. Hypotension, resolved. 5. Pancytopenia. 6. Systemic lupus erythematosus, immunocompromised. 7. Hyponatremia. 8. Acute kidney injury. 9. History of breast cancer. 10. Hepatitis C. 11. Gastroesophageal reflux disease. 12. MRSA colonization. Plan . REINTUBATED 12/10 IMPROVING WILL MAINTAIN ON PS ALL DAY AND QHS AC UPPER EXT EDEMA RESTART TUBE FEEDING D/W RN 1. Titrate FiO2 to keep O2 saturation 94%. 2. U/S UPPER EXT LEFT NEGATIVE FOR DVT 3. ANTIBX PER ID 4. Follow up sheikh cultures. 5. Protonix for stress ulcer prophylaxis. 6. Start DuoNeb. 7. SCDs. 8. DAILY CXR 9. solucortef DECREASE TO Q12 YASMANY HENSON MD Dec 12, 2016 09:46
[2016-12-12 10:21] LABS: FIO2 ABG 40%
--- NOTE | 2016-12-12 12:33 | PDOC ---
Provider Note Provider Note 12/12/2016 0900 Discussed CHARLI with sister, risks and benefits and agreeable. I did discuss with her that this could not be performed at this time due to very low PLTs. Will reeval at a later time, prior TTE noted with no vegetation. Will defer for now, reconsult once PLT/HGG are much improved. SHANICE CARPIO APRN Dec 12, 2016 12:33
[2016-12-12] MEDS: VANCOMYCIN PER PHARMACY MC PRN (14:10)
--- NOTE | 2016-12-12 16:11 | PDOC ---
PROGRESS NOTES Subjective Subjective c/c - f/u of pancytopenia ROS - -on vent Objective Objective Vital Signs Date Time Temp Pulse Resp B/P (MAP) Pulse Ox O2 Delivery O2 Flow Rate FiO2 12/12/16 15:00 89 17 119/64 (82) 100 Ventilator 12/12/16 12:00 98.6 98.6 12/12/16 07:00 16.0 Intake and Output 12/12/16 07:00 Intake Total 4254 ml Output Total 1138 ml Balance 3116 ml IV Total 559 ml Tube Feeding 3495 ml Other 200 ml Output Urine Total 1138 ml Physical Exam Heart: Normal S1, Normal S2 Lungs: Clear to auscultation Psych/Mental Status: Other (on vent) Assessment Assessment Problems Medical Problems: (1) Respiratory failure Status: Acute ASSESSMENT AND PLAN: The patient is a 55-year-old female with the following medical problems: 1. Acute pancytopenia, likely related to her severe sepsis with methicillin-resistant Staphylococcus aureus bacteremia. Her CBC was normal in late 10/2016. I recommend continuing to treat the underlying infection as you are doing. Transfuse for hemoglobin less than 7, platelets less than 10. She has no evidence of bleeding at this time. Her port may be removed. This is very reasonable as she has finished with her chemotherapy. 2. Left upper extremity swelling. Ultrasound negative for a DVT 3. 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 She has several risk features. Ultimately, she agreed to have a mastectomy, which was completed in 04/2015. Her tumor was ER/ND negative, HER2 positive. She completed adjuvant Adriamycin/Cytoxan in 06/2015 and Taxol/Herceptin. She completed 1 year of Herceptin in 07/2016. A CT scan in 07/2016 showed indeterminant hilar lymph nodes and pulmonary nodules and bone scan was negative for any metastases. Comment Review of Relevant I have reviewed the following items anselmo (where applicable) has been applied. Labs Laboratory Tests Test 12/10/16 23:43 12/11/16 04:55 12/11/16 05:54 12/11/16 08:10 Glucose (Fingerstick) 133 mg/dL (70-99) 151 mg/dL (70-99) White Blood Count 3.0 x10^3/uL (4.0-11.0) Red Blood Count 2.71 x10^6/uL (3.50-5.40) Hemoglobin 8.0 g/dL (12.0-15.5) Hematocrit 24.4 % (36.0-47.0) Mean Corpuscular Volume 90 fL (79-100) Mean Corpuscular Hemoglobin 30 pg (25-35) Mean Corpuscular Hemoglobin Concent 33 g/dL (31-37) Red Cell Distribution Width 15.1 % (11.5-14.5) Platelet Count 22 x10^3/uL (140-400) Neutrophils (%) (Auto) 79 % (31-73) Lymphocytes (%) (Auto) 17 % (24-48) Monocytes (%) (Auto) 4 % (0-9) Eosinophils (%) (Auto) 0 % (0-3) Basophils (%) (Auto) 0 % (0-3) Neutrophils # (Auto) 2.4 x10^3uL (1.8-7.7) Lymphocytes # (Auto) 0.5 x10^3/uL (1.0-4.8) Monocytes # (Auto) 0.1 x10^3/uL (0.0-1.1) Eosinophils # (Auto) 0.0 x10^3/uL (0.0-0.7) Basophils # (Auto) 0.0 x10^3/uL (0.0-0.2) Sodium Level 144 mmol/L (136-145) Potassium Level 4.1 mmol/L (3.5-5.1) Chloride Level 113 mmol/L (98-107) Carbon Dioxide Level 20 mmol/L (21-32) Anion Gap 11 (6-14) Blood Urea Nitrogen 59 mg/dL (7-20) Creatinine 0.9 mg/dL (0.6-1.0) Estimated GFR (Cockcroft-Gault) 78.7 Glucose Level 171 mg/dL (70-99) Calcium Level 8.2 mg/dL (8.5-10.1) O2 Saturation 98 % (92-99) Arterial Blood pH 7.45 (7.35-7.45) Arterial Blood pCO2 at Patient Temp 27 mmHg (35-46) Arterial Blood pO2 at Patient Temp 123 mmHg (75-108) Arterial Blood HCO3 18 mmol/L (21-28) Arterial Blood Base Excess -5 mmol/L (-3-3) FiO2 40 Test 12/11/16 13:00 12/11/16 17:59 12/11/16 23:54 12/12/16 04:10 Glucose (Fingerstick) 164 mg/dL (70-99) 163 mg/dL (70-99) 153 mg/dL (70-99) White Blood Count 2.6 x10^3/uL (4.0-11.0) Red Blood Count 2.41 x10^6/uL (3.50-5.40) Hemoglobin 7.2 g/dL (12.0-15.5) Hematocrit 21.2 % (36.0-47.0) Mean Corpuscular Volume 88 fL (79-100) Mean Corpuscular Hemoglobin 30 pg (25-35) Mean Corpuscular Hemoglobin Concent 34 g/dL (31-37) Red Cell Distribution Width 15.0 % (11.5-14.5) Platelet Count 24 x10^3/uL (140-400) Neutrophils (%) (Auto) 83 % (31-73) Lymphocytes (%) (Auto) 13 % (24-48) Monocytes (%) (Auto) 4 % (0-9) Eosinophils (%) (Auto) 0 % (0-3) Basophils (%) (Auto) 0 % (0-3) Neutrophils # (Auto) 2.2 x10^3uL (1.8-7.7) Lymphocytes # (Auto) 0.3 x10^3/uL (1.0-4.8) Monocytes # (Auto) 0.1 x10^3/uL (0.0-1.1) Eosinophils # (Auto) 0.0 x10^3/uL (0.0-0.7) Basophils # (Auto) 0.0 x10^3/uL (0.0-0.2) Sodium Level 146 mmol/L (136-145) Potassium Level 4.4 mmol/L (3.5-5.1) Chloride Level 115 mmol/L (98-107) Carbon Dioxide Level 21 mmol/L (21-32) Anion Gap 10 (6-14) Blood Urea Nitrogen 64 mg/dL (7-20) Creatinine 1.1 mg/dL (0.6-1.0) Estimated GFR (Cockcroft-Gault) 62.4 Glucose Level 192 mg/dL (70-99) Calcium Level 8.0 mg/dL (8.5-10.1) Test 12/12/16 05:35 12/12/16 08:00 12/12/16 11:15 Glucose (Fingerstick) 171 mg/dL (70-99) 161 mg/dL (70-99) O2 Saturation 98 % (92-99) Arterial Blood pH 7.42 (7.35-7.45) Arterial Blood pCO2 at Patient Temp 30 mmHg (35-46) Arterial Blood pO2 at Patient Temp 131 mmHg (75-108) Arterial Blood HCO3 19 mmol/L (21-28) Arterial Blood Base Excess -5 mmol/L (-3-3) FiO2 40% Laboratory Tests Test 12/11/16 17:59 12/11/16 23:54 12/12/16 04:10 12/12/16 05:35 Glucose (Fingerstick) 163 mg/dL (70-99) 153 mg/dL (70-99) 171 mg/dL (70-99) White Blood Count 2.6 x10^3/uL (4.0-11.0) Red Blood Count 2.41 x10^6/uL (3.50-5.40) Hemoglobin 7.2 g/dL (12.0-15.5) Hematocrit 21.2 % (36.0-47.0) Mean Corpuscular Volume 88 fL (79-100) Mean Corpuscular Hemoglobin 30 pg (25-35) Mean Corpuscular Hemoglobin Concent 34 g/dL (31-37) Red Cell Distribution Width 15.0 % (11.5-14.5) Platelet Count 24 x10^3/uL (140-400) Neutrophils (%) (Auto) 83 % (31-73) Lymphocytes (%) (Auto) 13 % (24-48) Monocytes (%) (Auto) 4 % (0-9) Eosinophils (%) (Auto) 0 % (0-3) Basophils (%) (Auto) 0 % (0-3) Neutrophils # (Auto) 2.2 x10^3uL (1.8-7.7) Lymphocytes # (Auto) 0.3 x10^3/uL (1.0-4.8) Monocytes # (Auto) 0.1 x10^3/uL (0.0-1.1) Eosinophils # (Auto) 0.0 x10^3/uL (0.0-0.7) Basophils # (Auto) 0.0 x10^3/uL (0.0-0.2) Sodium Level 146 mmol/L (136-145) Potassium Level 4.4 mmol/L (3.5-5.1) Chloride Level 115 mmol/L (98-107) Carbon Dioxide Level 21 mmol/L (21-32) Anion Gap 10 (6-14) Blood Urea Nitrogen 64 mg/dL (7-20) Creatinine 1.1 mg/dL (0.6-1.0) Estimated GFR (Cockcroft-Gault) 62.4 Glucose Level 192 mg/dL (70-99) Calcium Level 8.0 mg/dL (8.5-10.1) Test 12/12/16 08:00 12/12/16 11:15 O2 Saturation 98 % (92-99) Arterial Blood pH 7.42 (7.35-7.45) Arterial Blood pCO2 at Patient Temp 30 mmHg (35-46) Arterial Blood pO2 at Patient Temp 131 mmHg (75-108) Arterial Blood HCO3 19 mmol/L (21-28) Arterial Blood Base Excess -5 mmol/L (-3-3) FiO2 40% Glucose (Fingerstick) 161 mg/dL (70-99) Microbiology 12/10/16 Blood Culture - Preliminary, Resulted NO GROWTH AFTER 2 DAYS 12/09/16 Stool Culture - Final, Resulted 12/09/16 Stool Culture Result 1 (LUCINA) - Final, Resulted 12/09/16 Campylobacter Antigen Assay - Preliminary, Resulted 12/09/16 Campylobactor Result 1 - Preliminary, Resulted 12/09/16 Shiga Toxin Test - Final, Resulted 12/08/16 Sputum Culture - Final, Complete 12/08/16 Sputum Result 1 - Final, Complete 12/08/16 Antimicrobic Susceptibility - Final, Complete 12/06/16 Urine Culture - Final, Complete 12/06/16 Urine Culture Result 1 (LUCINA) - Final, Complete Medications Current Medications Sodium Chloride 1,000 ml @ 1,000 mls/hr 1X ONCE IV Last administered on 16:18; Start 12/06/16 at 16:15; Stop 12/06/16 at 17:14; Status DC Vancomycin HCl (Vanco Per Pharmacy) 1 each PRN DAILY PRN MC SEE COMMENTS Last administered on 12/12/16 14:10; Start 12/06/16 at 17:00 Levofloxacin/ Dextrose 150 ml @ 100 mls/hr 1X ONCE IV Last administered on 20:04; Start 12/06/16 at 17:00; Stop 12/06/16 at 18:29; Status DC Vancomycin HCl 2 gm/Sodium Chloride 500 ml @ 250 mls/hr 1X ONCE IV Last administered on 12/06/16 17:11; Start 12/06/16 at 17:00; Stop 12/06/16 at 18:59 ; Status DC Sodium Chloride 1,000 ml @ 1,000 mls/hr 1X ONCE IV Last administered on 17:09; Start 12/06/16 at 17:00; Stop 12/06/16 at 17:59; Status DC Meropenem 500 mg/ Sodium Chloride 50 ml @ 100 mls/hr Q8HRS IV Last administered on 12/10/16 07:30; Start 12/06/16 at 18:00; Stop 12/10/16 at 08:13 ; Status DC Dopamine HCl/ Dextrose 250 ml @ 16.414 mls/ hr 1X ONCE IV Last administered on 12/06/16 17:41; Start 12/06/16 at 17:15; Stop 12/07/16 at 08:28; Status DC Etomidate (Amidate) 20 mg 1X ONCE IV Last administered on 12/06/16 17:19; Start 12/06/16 at 17:15; Stop 12/06/16 at 17:17; Status DC Succinylcholine Chloride (Anectine) 100 mg 1X ONCE IV Last administered on 17:20; Start 12/06/16 at 17:15; Stop 12/06/16 at 17:17; Status DC Vancomycin HCl 1.25 gm/Sodium Chloride 250 ml @ 167 mls/hr Q24H IV Last administered on 12/07/16 18:39; Start 12/07/16 at 17:00; Stop 12/07/16 at 23:00 ; Status DC Vancomycin HCl 1 each 1X ONCE MC ; Start 12/07/16 at 16:30; Stop 12/07/16 at 16 :31; Status Cancel Midazolam HCl 100 ml @ As Directed STK-MED ONCE IV ; Start 12/06/16 at 17:36; Stop 12/06/16 at 17:37; Status DC Midazolam HCl (Versed) 5 mg STK-MED ONCE .ROUTE ; Start 12/06/16 at 17:37; Stop 12/06/16 at 17:38; Status DC Midazolam HCl (Versed) 5 mg PRN Q10MIN PRN IV SEDATION; Start 12/06/16 at 17:45 Hydrocortisone Sodium Succinate (Solu-CORTEF) 100 mg Q8HRS IV Last administered on 12/09/16 13:55; Start 12/06/16 at 18:30; Stop 12/09/16 at 16:21 ; Status DC Norepinephrine Bitartrate 16 mg/ Sodium Chloride 266 ml @ 0 mls/hr CONT PRN IV SEE I/O RECORD; Start 12/06/16 at 19:00; Status UNV Pantoprazole Sodium (Protonix Vial) 40 mg DAILYAC IVP Last administered on 12/12 08:04; Start 12/06/16 at 19:30 Acetaminophen (Tylenol) 325 mg PRN Q6HRS PRN PO MILD PAIN / TEMP; Start at 19:00 Hydralazine HCl (Apresoline) 10 mg PRN Q4HRS PRN IVP ELEVATED BP, SEE COMMENTS Last administered on 12/10/16 07:29; Start 12/06/16 at 19:00 Ondansetron HCl (Zofran) 4 mg PRN Q8HRS PRN IV NAUSEA/VOMITING; Start 12/06/16 at 19:00; Stop 12/12/16 at 08:31; Status DC Albuterol Sulfate (Ventolin Neb Soln) 2.5 mg PRN Q4HRS PRN NEB SHORTNESS OF BREATH; Start 12/06/16 at 19:00 Norepinephrine Bitartrate 250 ml @ 1.875 mls/ hr CONT PRN IV SEE I/O RECORD Last administered on 12/06/16 19:55; Start 12/06/16 at 19:00 Sodium Chloride 1,000 ml @ 1,000 mls/hr 1X ONCE IV Last administered on 19:56; Start 12/06/16 at 19:15; Stop 12/06/16 at 20:14; Status DC Sodium Chloride 1,000 ml @ 75 mls/hr [id number] IV Last administered on 21:55; Start 12/06/16 at 19:15; Stop 12/09/16 at 18:44; Status DC Pneumococcal Polyvalent Vaccine (Do NOT chart on this placeholder) 1 each PRN DAILY PRN MC PT UNABLE TO RESPOND; Start 12/07/16 at 09:30; Status Cancel Pneumococcal Polyvalent Vaccine (Pneumovax 23) 0.5 ml ONCE ONCE VAX IM ; Start 12/08/16 at 09:00; Stop 12/08/16 at 09:01; Status DC Albuterol/ Ipratropium (Duoneb) 3 ml RTQID NEB Last administered on 12/12/16 13:57; Start 12/07/16 at 12:00 Midazolam HCl 100 ml @ 0 mls/hr CONT PRN IV SEE I/O RECORD Last administered on 12/07/16 10:29; Start 12/07/16 at 10:15 Fentanyl Citrate (Fentanyl 2ml Vial) 25 mcg PRN Q1HR PRN IV PAIN Last administered on 12/10/16 20:35; Start 12/07/16 at 10:45 Pantoprazole Sodium (Protonix Vial) 40 mg DAILYAC IVP ; Start 12/07/16 at 17:00 ; Status Cancel Vancomycin HCl 1.25 gm/Sodium Chloride 250 ml @ 167 mls/hr Q12H IV Last administered on 12/12/16 05:35; Start 12/08/16 at 06:00 Vancomycin HCl 1 each 1X ONCE MC ; Start 12/08/16 at 17:30; Stop 12/08/16 at 17 :31; Status DC Vancomycin HCl 1 gm/Sodium Chloride 250 ml @ 250 mls/hr Q12H IV ; Start at 18:00; Status Cancel Chlorhexidine Gluconate (Peridex) 15 ml BID SWSP ; Start 12/09/16 at 21:00; Stop 12/10/16 at 07:23; Status DC Hydrocortisone Sodium Succinate (Solu-CORTEF) 100 mg Q12HR IV Last administered on 12/12/16 08:04; Start 12/09/16 at 21:00 Amino Acids/ Glycerin/ Electrolytes 1,000 ml @ 40 mls/hr Q24H IV Last administered on 12/09/16 17:56; Start 12/09/16 at 17:00; Stop 12/10/16 at 14:16 ; Status DC Alprazolam (Xanax) 0.25 mg DAILY PO Last administered on 12/12/16 08:04; Start 12/10/16 at 09:00 Bupropion HCl (Wellbutrin) 100 mg BID PO Last administered on 12/12/16 08:04; Start 12/09/16 at 21:00 Gabapentin (Neurontin) 300 mg BID PO ; Start 12/09/16 at 21:00; Status Cancel Ropinirole HCl (Requip) 0.25 mg QHS PO Last administered on 12/11/16 20:53; Start 12/09/16 at 21:00 Pregabalin (Lyrica) 150 mg DAILY PO Last administered on 12/12/16 08:05; Start 12/10/16 at 09:00 Epinephrine (S2 Racepinephrine) 0.5 ml 1X ONCE NEB Last administered on 07:45; Start 12/10/16 at 07:45; Stop 12/10/16 at 07:46; Status DC Lorazepam (Ativan) 2 mg 1X ONCE IV Last administered on 12/10/16 08:33; Start 12/10/16 at 08:00; Stop 12/10/16 at 08:01; Status DC Succinylcholine Chloride (Anectine) 200 mg STK-MED ONCE .ROUTE ; Start 12/10/16 at 10:28; Stop 12/10/16 at 10:29; Status DC Propofol 100 ml @ As Directed STK-MED ONCE IV ; Start 12/10/16 at 10:28; Stop 12/10/16 at 10:29; Status DC Calcium Gluconate (Calcium Gluconate) 1,000 mg 1X ONCE IVP Last administered on 12/10/16 11:41; Start 12/10/16 at 11:30; Stop 12/10/16 at 11:31; Status DC Succinylcholine Chloride (Anectine) 200 mg 1X ONCE IV Last administered on 11:41; Start 12/10/16 at 11:30; Stop 12/10/16 at 11:31; Status DC Propofol 100 ml @ 0 mls/hr CONT PRN IV SEE I/O RECORD Last administered on 12/12 11:14; Start 12/10/16 at 11:30 Insulin Aspart (NovoLOG) 0-5 UNITS TIDWMEALS SQ ; Start 12/11/16 at 08:00; Stop 12/11/16 at 08:00; Status DC Dextrose (Dextrose 50%-Water Syringe) 12.5 gm PRN Q15MIN PRN IV SEE COMMENTS; Start 12/10/16 at 20:30 Insulin Aspart (NovoLOG) 0-5 UNITS Q6HRS SQ Last administered on 12/12/16 11: 23; Start 12/11/16 at 00:00 Chlorhexidine Gluconate (Peridex) 15 ml BID MM Last administered on 12/12/16 08:05; Start 12/11/16 at 21:00 Fentanyl Citrate (Fentanyl 2ml Vial) 25 mcg PRN Q5MIN PRN IV MILD PAIN; Start 12/12/16 at 07:00; Stop 12/13/16 at 06:59 Fentanyl Citrate (Fentanyl 2ml Vial) 50 mcg PRN Q5MIN PRN IV MODERATE PAIN; Start 12/12/16 at 07:00; Stop 12/13/16 at 06:59 Morphine Sulfate 1 mg PRN Q10MIN PRN IV SEVERE PAIN; Start 12/12/16 at 07:00; Stop 12/13/16 at 06:59 Ringer's Solution 1,000 ml @ 30 mls/hr Q24H IV ; Start 12/12/16 at 07:00; Stop 12/12/16 at 18:59 Lidocaine HCl 2 ml PRN 1X PRN ID PRIOR TO IV START; Start 12/12/16 at 07:00; Stop 12/13/16 at 06:59 Hydromorphone HCl (Dilaudid) 0.5 mg PRN Q10MIN PRN IV SEV PAIN, Second choice; Start 12/12/16 at 07:00; Stop 12/13/16 at 06:59 Prochlorperazine Edisylate (Compazine) 5 mg PACU PRN PRN IV NAUSEA, MRX1; Start 12/12/16 at 07:00; Stop 12/13/16 at 06:59 Lidocaine HCl (Lidocaine Pf 2% Vial) 5 ml STK-MED ONCE .ROUTE ; Start 12/12/16 at 08:15; Stop 12/12/16 at 08:16; Status DC Propofol 0 ml @ As Directed STK-MED ONCE IV ; Start 12/12/16 at 08:15; Stop at 08:16; Status DC Ondansetron HCl (Zofran) 4 mg PRN Q6HRS PRN IV NAUSEA/VOMITING; Start 12/12/16 at 19:00 Acetaminophen (Tylenol) 650 mg PRN Q6HRS PRN PEG MILD PAIN / TEMP; Start at 08:30 Active Scripts Active Oxycodone Hcl 5 Mg Tablet 5 Mg PO PRN Q6HRS PRN Reported Albuterol Sulfate Neb Soln (Albuterol Sulfate) 1.25 Mg/3 Ml Vial.neb 1 Vial NEB Q6HRS Ranitidine Hcl 150 Mg Capsule 75 Mg PO DAILY Ondansetron Hcl 8 Mg Tablet 8 Mg PO DAILY Azithromycin Tablet (Azithromycin) 250 Mg Tablet 250 Mg PO DAILY Bupropion Hcl 100 Mg Tablet 100 Mg PO BID Nasal Allergy [place] (Cromolyn Sodium) 13 Ml [place].pump 13 Ml NS DAILY Gabapentin 300 Mg Capsule 300 Mg PO BID Hydroxyzine Hcl 25 Mg Tablet 25 Mg PO DAILY Nystatin 15 Gm Cream..g. 15 Gm TP BID Duloxetine Hcl 60 Mg Capsule.dr 60 Mg PO DAILY Clonidine Hcl 0.1 Mg Tablet 0.1 Mg PO DAILY Lisinopril 20 Mg Tablet 20 Mg PO DAILY Famciclovir 125 Mg Tablet 125 Mg PO DAILY Ropinirole Hcl 0.25 Mg Tablet 0.25 Mg PO DAILY Hydroxychloroquine Sulfate 200 Mg Tablet 200 Mg PO DAILY Lyrica (Pregabalin) 150 Mg Capsule 150 Mg PO DAILY Furosemide 20 Mg Tablet 20 Mg PO DAILY Alprazolam 0.25 Mg Tablet 0.25 Mg PO Oxycodone Hcl 5 Mg Tablet 5 Mg PO PRN Q4HRS PRN Ibuprofen 400 Mg Tablet 400 Mg PO PRN DAILY PRN Multivitamins (Multivitamin) 1 Each Tablet 1 Each PO DAILY Oxycodone-Acetaminophen 10-325 (Oxycodone Hcl/Acetaminophen) 1 Each Tablet 1 Each PO PRN Q4-6HRS PRN Plaquenil (Hydroxychloroquine Sulfate) 200 Mg Tablet 200 Mg PO BID Vitals/I & O Vital Sign - Last 24 Hours 12/11/16 12/11/16 12/11/16 12/11/16 16:52 17:00 18:00 19:00 Temp 97.7 97.7 Pulse 96 102 92 Resp 32 25 16 B/P (MAP) 103/61 (75) 116/60 (78) 97/54 (68) Pulse Ox 100 98 99 100 O2 Delivery Ventilator Ventilator Ventilator Ventilator O2 Flow Rate 16.0 16.0 12/11/16 12/11/16 12/11/16 12/11/16 19:36 20:00 20:13 21:00 Temp 97.8 97.8 Pulse 87 85 Resp 16 16 B/P (MAP) 90/53 (65) 103/59 (74) Pulse Ox 100 100 100 O2 Delivery Mechanical Ventilator Ventilator Ventilator Ventilator 12/11/16 12/11/16 12/11/16 12/11/16 21:40 22:00 23:00 23:59 Pulse 88 89 Resp 16 16 B/P (MAP) 107/59 (75) 117/65 (82) Pulse Ox 100 100 100 O2 Delivery Ventilator Ventilator Ventilator Mechanical Ventilator 12/12/16 12/12/16 12/12/16 12/12/16 00:00 00:19 01:00 02:00 Temp 97.6 97.6 Pulse 91 86 90 Resp 16 16 16 B/P (MAP) 117/60 (79) 112/61 (78) 114/67 (83) Pulse Ox 100 100 100 100 O2 Delivery Ventilator Ventilator Ventilator Ventilator 12/12/16 12/12/16 12/12/16 12/12/16 02:10 03:00 03:45 04:00 Temp 97.6 97.6 Pulse 92 92 Resp 16 16 B/P (MAP) 118/63 (81) 122/65 (84) Pulse Ox 100 100 100 O2 Delivery Ventilator Ventilator Mechanical Ventilator Ventilator 12/12/16 12/12/16 12/12/16 12/12/16 04:06 05:00 05:38 06:00 Pulse 94 92 Resp 16 18 B/P (MAP) 119/60 (79) 119/74 (89) Pulse Ox 100 100 100 100 O2 Delivery Ventilator Ventilator Ventilator Ventilator 12/12/16 12/12/16 12/12/16 12/12/16 07:00 07:52 08:00 08:00 Temp 98.0 98.0 Pulse 97 95 Resp 24 19 B/P (MAP) 128/69 (88) 120/65 (83) Pulse Ox 99 100 100 O2 Delivery Ventilator Ventilator Ventilator Mechanical Ventilator O2 Flow Rate 16.0 12/12/16 12/12/16 12/12/16 12/12/16 08:27 09:00 10:00 11:00 Pulse 91 90 91 Resp 20 19 18 B/P (MAP) 136/69 (91) 131/71 (91) 139/73 (95) Pulse Ox 100 99 99 99 O2 Delivery Ventilator Ventilator Ventilator Ventilator 12/12/16 12/12/16 12/12/16 12/12/16 11:13 12:00 12:00 12:17 Temp 98.6 98.6 Pulse 90 Resp 18 B/P (MAP) 118/65 (82) Pulse Ox 99 99 99 O2 Delivery Ventilator Mechanical Ventilator Ventilator Ventilator 12/12/16 12/12/16 12/12/16 12/12/16 13:00 13:57 14:00 15:00 Pulse 86 86 89 Resp 16 17 17 B/P (MAP) 119/66 (83) 134/67 (89) 119/64 (82) Pulse Ox 99 99 100 100 O2 Delivery Ventilator Ventilator Ventilator Ventilator Intake and Output 12/11/16 12/11/16 12/12/16 15:00 23:00 07:00 Intake Total 800 ml 1870 ml 1584 ml Output Total 100 ml 658 ml 380 ml Balance 700 ml 1212 ml 1204 ml Nutrition Consultation Dietary Evaluation: Recommendations by RD: Increase Calorie Intake Comments: Contiue the TF's with Diabetisource AC, goal rate 60 ml/hr start at 20 ml/hr, increase by 20 ml/hr q8h to goal flushes 200 cc q6h Expected Outcomes/Goals: tolerate the TF's at goal rate- goal met meet 75% estimated nutrition needs- goal met Malnutrition Findings: Reduced House Player Strength: N/A Reduced House Player Strength (Non-Sev: N/A Malnutrition related to morbid: No Weight Status: Obese ELLE CLARK MD Dec 12, 2016 16:11
[2016-12-12] MEDS ORDERED: ONDANSETRON PF 4 MG/2 ML VIAL. IV PRN (19:00)
[2016-12-12] MEDS: rOPINIRole 0.25 MG TABLET. PO SCH (21:09)
[2016-12-13] VITALS (30 sets, daily range): BP systolic 110–164; BP diastolic 56–90
[2016-12-13] MEDS: fentaNYL PF VIAL 100 MCG/2 ML VIAL IV PRN (00:52)
[2016-12-13] MEDS: PROPOFOL 100 ML IV PRN (00:57)
[2016-12-13 05:49] LABS: BASO % 0 % (0-3); EOS % 0 % (0-3); LYMPH # 0.5 x10^3/uL (1.0-4.8); LYMPH % 14 % (24-48); MEAN CORPUSCULAR HEMOGLOBIN 30 pg (25-35); MEAN CORPUSCULAR HGB CONC 34 g/dL (31-37); MEAN CORPUSCULAR VOLUME 90 fL (79-100); MONO % 4 % (0-9); NEUT % 82 % (31-73); PLATELET COUNT 30 x10^3/uL (140-400); RED BLOOD COUNT 2.28 x10^6/uL (3.50-5.40); RED CELL DISTRIBUTION WIDTH 14.8 % (11.5-14.5); WHITE BLOOD COUNT 3.2 x10^3/uL (4.0-11.0)
[2016-12-13 06:00] LABS: HEMATOCRIT 20.4 % (36.0-47.0); HEMOGLOBIN 6.8 g/dL (12.0-15.5)
[2016-12-13 06:06] LABS: GFR 69.7; POTASSIUM 4.6 mmol/L (3.5-5.1)
[2016-12-13] MEDS: VANCOMYCIN 1.25 GM in IV NORMAL SALINE 250ML 250 ML IV SCH ×2 (06:24→18:25)
[2016-12-13] MEDS: INSULIN ASPART 300 UNITS/3 ML INSULN.PEN SQ SCH ×3 (06:25→18:00)
[2016-12-13] MEDS: IPRATRPIUM/ALBUTEROL 0.5/2.5MG 3 ML NEBU. NEB SCH ×4 (07:41→19:25)
--- NOTE | 2016-12-13 07:49 | RAD ---
Portable chest, 12/13/2016: History: Respiratory failure Comparison is made to a study from 12/11/2016. The tip of the ET tube lies 2.5 cm above the nunu. A left Port-A-Cath extends into the right atrium. An NG tube extends into the stomach although its tip is not visible. The patient is rotated to the right on today's exam. The heart size is unchanged. The pulmonary vascularity appears prominent. There are bibasilar opacities compatible with a small amount of pleural fluid, left greater than right, and mild underlying infiltrates. There has been no interval improvement. No new abnormality is detected. IMPRESSION: No significant change since 12/11/2016.
[2016-12-13 07:53] LABS: HCO3 ABG 19 mmol/L (21-28); PCO2 ABG 30 mmHg (35-46); PO2 ABG 149 mmHg (75-108); SAT O2 ABG 98 % (92-99)
[2016-12-13 07:58] LABS: FIO2 ABG 40; PH ABG 7.42 (7.35-7.45)
--- NOTE | 2016-12-13 08:46 | PDOC ---
PULMONARY PROGRESS NOTES Subjective Pt did well on trial Vitals Vital Signs Date Time Temp Pulse Resp B/P (MAP) Pulse Ox O2 Delivery O2 Flow Rate FiO2 12/13/16 07:42 100 Ventilator 12/13/16 06:00 78 17 116/59 (78) 12/13/16 04:00 97.7 97.7 12/12/16 07:00 16.0 HEENT: Other (nc at perrl, orally intubated, nose clear... neck no lap, no thyromegaly) Lungs: Clear, Wheezing, Other (poor airlfolow) Cardiovascular: S1, S2 Abdomen: Soft, Non-tender, Other (no mass) Neuro Exam: Alert Extremities: Other (edema) Skin: Warm Labs Laboratory Tests Test 12/11/16 13:00 12/11/16 17:59 12/11/16 23:54 12/12/16 04:10 Glucose (Fingerstick) 164 mg/dL (70-99) 163 mg/dL (70-99) 153 mg/dL (70-99) White Blood Count 2.6 x10^3/uL (4.0-11.0) Red Blood Count 2.41 x10^6/uL (3.50-5.40) Hemoglobin 7.2 g/dL (12.0-15.5) Hematocrit 21.2 % (36.0-47.0) Mean Corpuscular Volume 88 fL (79-100) Mean Corpuscular Hemoglobin 30 pg (25-35) Mean Corpuscular Hemoglobin Concent 34 g/dL (31-37) Red Cell Distribution Width 15.0 % (11.5-14.5) Platelet Count 24 x10^3/uL (140-400) Neutrophils (%) (Auto) 83 % (31-73) Lymphocytes (%) (Auto) 13 % (24-48) Monocytes (%) (Auto) 4 % (0-9) Eosinophils (%) (Auto) 0 % (0-3) Basophils (%) (Auto) 0 % (0-3) Neutrophils # (Auto) 2.2 x10^3uL (1.8-7.7) Lymphocytes # (Auto) 0.3 x10^3/uL (1.0-4.8) Monocytes # (Auto) 0.1 x10^3/uL (0.0-1.1) Eosinophils # (Auto) 0.0 x10^3/uL (0.0-0.7) Basophils # (Auto) 0.0 x10^3/uL (0.0-0.2) Sodium Level 146 mmol/L (136-145) Potassium Level 4.4 mmol/L (3.5-5.1) Chloride Level 115 mmol/L (98-107) Carbon Dioxide Level 21 mmol/L (21-32) Anion Gap 10 (6-14) Blood Urea Nitrogen 64 mg/dL (7-20) Creatinine 1.1 mg/dL (0.6-1.0) Estimated GFR (Cockcroft-Gault) 62.4 Glucose Level 192 mg/dL (70-99) Calcium Level 8.0 mg/dL (8.5-10.1) Test 12/12/16 05:35 12/12/16 08:00 12/12/16 11:15 12/12/16 18:07 Glucose (Fingerstick) 171 mg/dL (70-99) 161 mg/dL (70-99) 156 mg/dL (70-99) O2 Saturation 98 % (92-99) Arterial Blood pH 7.42 (7.35-7.45) Arterial Blood pCO2 at Patient Temp 30 mmHg (35-46) Arterial Blood pO2 at Patient Temp 131 mmHg (75-108) Arterial Blood HCO3 19 mmol/L (21-28) Arterial Blood Base Excess -5 mmol/L (-3-3) FiO2 40% Test 12/12/16 23:28 12/13/16 04:30 12/13/16 06:19 12/13/16 07:45 Glucose (Fingerstick) 162 mg/dL (70-99) 187 mg/dL (70-99) White Blood Count 3.2 x10^3/uL (4.0-11.0) Red Blood Count 2.28 x10^6/uL (3.50-5.40) Hemoglobin 6.8 g/dL (12.0-15.5) Hematocrit 20.4 % (36.0-47.0) Mean Corpuscular Volume 90 fL (79-100) Mean Corpuscular Hemoglobin 30 pg (25-35) Mean Corpuscular Hemoglobin Concent 34 g/dL (31-37) Red Cell Distribution Width 14.8 % (11.5-14.5) Platelet Count 30 x10^3/uL (140-400) Neutrophils (%) (Auto) 82 % (31-73) Lymphocytes (%) (Auto) 14 % (24-48) Monocytes (%) (Auto) 4 % (0-9) Eosinophils (%) (Auto) 0 % (0-3) Basophils (%) (Auto) 0 % (0-3) Neutrophils # (Auto) 2.6 x10^3uL (1.8-7.7) Lymphocytes # (Auto) 0.5 x10^3/uL (1.0-4.8) Monocytes # (Auto) 0.1 x10^3/uL (0.0-1.1) Eosinophils # (Auto) 0.0 x10^3/uL (0.0-0.7) Basophils # (Auto) 0.0 x10^3/uL (0.0-0.2) Sodium Level 147 mmol/L (136-145) Potassium Level 4.6 mmol/L (3.5-5.1) Chloride Level 115 mmol/L (98-107) Carbon Dioxide Level 23 mmol/L (21-32) Anion Gap 9 (6-14) Blood Urea Nitrogen 63 mg/dL (7-20) Creatinine 1.0 mg/dL (0.6-1.0) Estimated GFR (Cockcroft-Gault) 69.7 Glucose Level 183 mg/dL (70-99) Calcium Level 8.0 mg/dL (8.5-10.1) O2 Saturation 98 % (92-99) Arterial Blood pH 7.42 (7.35-7.45) Arterial Blood pCO2 at Patient Temp 30 mmHg (35-46) Arterial Blood pO2 at Patient Temp 149 mmHg (75-108) Arterial Blood HCO3 19 mmol/L (21-28) Arterial Blood Base Excess -5 mmol/L (-3-3) FiO2 40 Laboratory Tests Test 12/12/16 11:15 12/12/16 18:07 12/12/16 23:28 12/13/16 04:30 Glucose (Fingerstick) 161 mg/dL (70-99) 156 mg/dL (70-99) 162 mg/dL (70-99) White Blood Count 3.2 x10^3/uL (4.0-11.0) Red Blood Count 2.28 x10^6/uL (3.50-5.40) Hemoglobin 6.8 g/dL (12.0-15.5) Hematocrit 20.4 % (36.0-47.0) Mean Corpuscular Volume 90 fL (79-100) Mean Corpuscular Hemoglobin 30 pg (25-35) Mean Corpuscular Hemoglobin Concent 34 g/dL (31-37) Red Cell Distribution Width 14.8 % (11.5-14.5) Platelet Count 30 x10^3/uL (140-400) Neutrophils (%) (Auto) 82 % (31-73) Lymphocytes (%) (Auto) 14 % (24-48) Monocytes (%) (Auto) 4 % (0-9) Eosinophils (%) (Auto) 0 % (0-3) Basophils (%) (Auto) 0 % (0-3) Neutrophils # (Auto) 2.6 x10^3uL (1.8-7.7) Lymphocytes # (Auto) 0.5 x10^3/uL (1.0-4.8) Monocytes # (Auto) 0.1 x10^3/uL (0.0-1.1) Eosinophils # (Auto) 0.0 x10^3/uL (0.0-0.7) Basophils # (Auto) 0.0 x10^3/uL (0.0-0.2) Sodium Level 147 mmol/L (136-145) Potassium Level 4.6 mmol/L (3.5-5.1) Chloride Level 115 mmol/L (98-107) Carbon Dioxide Level 23 mmol/L (21-32) Anion Gap 9 (6-14) Blood Urea Nitrogen 63 mg/dL (7-20) Creatinine 1.0 mg/dL (0.6-1.0) Estimated GFR (Cockcroft-Gault) 69.7 Glucose Level 183 mg/dL (70-99) Calcium Level 8.0 mg/dL (8.5-10.1) Test 12/13/16 06:19 12/13/16 07:45 Glucose (Fingerstick) 187 mg/dL (70-99) O2 Saturation 98 % (92-99) Arterial Blood pH 7.42 (7.35-7.45) Arterial Blood pCO2 at Patient Temp 30 mmHg (35-46) Arterial Blood pO2 at Patient Temp 149 mmHg (75-108) Arterial Blood HCO3 19 mmol/L (21-28) Arterial Blood Base Excess -5 mmol/L (-3-3) FiO2 40 Medications Active Scripts Medications Dose Route/Sig Max Daily Dose Days Date Category Oxycodone Hcl 5 Mg Tablet 5 Mg PO PRN Q6HRS PRN 11/28/16 Rx Albuterol Sulfate Neb Soln (Albuterol Sulfate) 1.25 Mg/3 Ml Vial.neb 1 Vial NEB Q6HRS 11/25/16 Reported Ranitidine Hcl 150 Mg Capsule 75 Mg PO DAILY 11/25/16 Reported Ondansetron Hcl 8 Mg Tablet 8 Mg PO DAILY 11/25/16 Reported Azithromycin Tablet (Azithromycin) 250 Mg Tablet 250 Mg PO DAILY 11/25/16 Reported Bupropion Hcl 100 Mg Tablet 100 Mg PO BID 11/25/16 Reported Nasal Allergy [place] (Cromolyn Sodium) 13 Ml [place].pump 13 Ml NS DAILY 11/25/16 Reported Gabapentin 300 Mg Capsule 300 Mg PO BID 11/25/16 Reported Hydroxyzine Hcl 25 Mg Tablet 25 Mg PO DAILY 11/25/16 Reported Nystatin 15 Gm Cream..g. 15 Gm TP BID 11/25/16 Reported Duloxetine Hcl 60 Mg Capsule.dr 60 Mg PO DAILY 11/25/16 Reported Clonidine Hcl 0.1 Mg Tablet 0.1 Mg PO DAILY 11/25/16 Reported Lisinopril 20 Mg Tablet 20 Mg PO DAILY 11/25/16 Reported Famciclovir 125 Mg Tablet 125 Mg PO DAILY 11/25/16 Reported Ropinirole Hcl 0.25 Mg Tablet 0.25 Mg PO DAILY 11/25/16 Reported Hydroxychloroquine Sulfate 200 Mg Tablet 200 Mg PO DAILY 11/25/16 Reported Lyrica (Pregabalin) 150 Mg Capsule 150 Mg PO DAILY 11/25/16 Reported Furosemide 20 Mg Tablet 20 Mg PO DAILY 11/25/16 Reported Alprazolam 0.25 Mg Tablet 0.25 Mg PO 11/25/16 Reported Oxycodone Hcl 5 Mg Tablet 5 Mg PO PRN Q4HRS PRN 11/25/16 Reported Ibuprofen 400 Mg Tablet 400 Mg PO PRN DAILY PRN 05/11/15 Reported Multivitamins (Multivitamin) 1 Each Tablet 1 Each PO DAILY 05/11/15 Reported Oxycodone-Acetaminophen 10-325 (Oxycodone Hcl/Acetaminophen) 1 Each Tablet 1 Each PO PRN Q4-6HRS PRN 05/11/15 Reported Plaquenil (Hydroxychloroquine Sulfate) 200 Mg Tablet 200 Mg PO BID 08/19/13 Reported Comments cxr bilateral infiltrates no change Impression . 1. Acute respiratory failure, multifactorial in etiology. 2. Abnormal chest x-ray could be secondary to volume overload, congestive heart failure or pneumonia. 3. Septic shock, bacteremia, g + cocci 4. Hypotension, resolved. 5. Pancytopenia. 6. Systemic lupus erythematosus, immunocompromised. 7. Hyponatremia. 8. Acute kidney injury. 9. History of breast cancer. 10. Hepatitis C. 11. Gastroesophageal reflux disease. 12. MRSA colonization. Plan . REINTUBATED 12/10 DID WELL ON TRIAL MORE AWAKE AND ALERT WILL EXTUBATE UPPER EXT EDEMA RESTART TUBE FEEDING D/W RN/RT DECREASE STEROIDS IN AM ANTIBX PER YASMANY JUAREZ MD Dec 13, 2016 08:46
--- NOTE | 2016-12-13 09:05 | PDOC ---
Infectious Disease Note Subjective Subjective No fever Denies N/V/D or pain Remains intubated Lightly sedated Tube feedings via OGT Vital Sign Vital Signs Vital Signs Date Time Temp Pulse Resp B/P (MAP) Pulse Ox O2 Delivery O2 Flow Rate FiO2 12/13/16 07:42 100 Ventilator 12/13/16 06:00 78 17 116/59 (78) 12/13/16 04:00 97.7 97.7 12/12/16 07:00 16.0 Physical Exam PHYSICAL EXAM GENERAL: Intubated. alert, calm. mittens. HEENT: ETT. OGT LUNGS: Clear to auscultation anteriorly. HEART: Normal S1 and S2. No murmur appreciated. ABDOMEN: Nondistended. Bowel sounds present, soft. GENITOURINARY: [place] EXTREMITIES: Generalized trace edema. No cyanosis SKIN: + purpura BLE. L>R NEUROLOGIC: Alert, nods to questions appropriately and follow commands Port-a-cath. clean Labs Lab Laboratory Tests Test 12/12/16 11:15 12/12/16 18:07 12/12/16 23:28 12/13/16 04:30 Glucose (Fingerstick) 161 mg/dL (70-99) 156 mg/dL (70-99) 162 mg/dL (70-99) White Blood Count 3.2 x10^3/uL (4.0-11.0) Red Blood Count 2.28 x10^6/uL (3.50-5.40) Hemoglobin 6.8 g/dL (12.0-15.5) Hematocrit 20.4 % (36.0-47.0) Mean Corpuscular Volume 90 fL (79-100) Mean Corpuscular Hemoglobin 30 pg (25-35) Mean Corpuscular Hemoglobin Concent 34 g/dL (31-37) Red Cell Distribution Width 14.8 % (11.5-14.5) Platelet Count 30 x10^3/uL (140-400) Neutrophils (%) (Auto) 82 % (31-73) Lymphocytes (%) (Auto) 14 % (24-48) Monocytes (%) (Auto) 4 % (0-9) Eosinophils (%) (Auto) 0 % (0-3) Basophils (%) (Auto) 0 % (0-3) Neutrophils # (Auto) 2.6 x10^3uL (1.8-7.7) Lymphocytes # (Auto) 0.5 x10^3/uL (1.0-4.8) Monocytes # (Auto) 0.1 x10^3/uL (0.0-1.1) Eosinophils # (Auto) 0.0 x10^3/uL (0.0-0.7) Basophils # (Auto) 0.0 x10^3/uL (0.0-0.2) Sodium Level 147 mmol/L (136-145) Potassium Level 4.6 mmol/L (3.5-5.1) Chloride Level 115 mmol/L (98-107) Carbon Dioxide Level 23 mmol/L (21-32) Anion Gap 9 (6-14) Blood Urea Nitrogen 63 mg/dL (7-20) Creatinine 1.0 mg/dL (0.6-1.0) Estimated GFR (Cockcroft-Gault) 69.7 Glucose Level 183 mg/dL (70-99) Calcium Level 8.0 mg/dL (8.5-10.1) Test 12/13/16 06:19 12/13/16 07:45 Glucose (Fingerstick) 187 mg/dL (70-99) O2 Saturation 98 % (92-99) Arterial Blood pH 7.42 (7.35-7.45) Arterial Blood pCO2 at Patient Temp 30 mmHg (35-46) Arterial Blood pO2 at Patient Temp 149 mmHg (75-108) Arterial Blood HCO3 19 mmol/L (21-28) Arterial Blood Base Excess -5 mmol/L (-3-3) FiO2 40 Portable chest, 12/13/2016: History: Respiratory failure Comparison is made to a study from 12/11/2016. The tip of the ET tube lies 2.5 cm above the nunu. A left Port-A-Cath extends into the right atrium. An NG tube extends into the stomach although its tip is not visible. The patient is rotated to the right on today's exam. The heart size is unchanged. The pulmonary vascularity appears prominent. There are bibasilar opacities compatible with a small amount of pleural fluid, left greater than right, and mild underlying infiltrates. There has been no interval improvement. No new abnormality is detected. IMPRESSION: No significant change since 12/11/2016. Micro 12/10. BLOOD CULTURE Preliminary GRAM POSITIVE COCCI IN CLUSTERS, SUGGESTIVE OF STAPH, IN 1 OF 2 BOTTLES, ONE SET DRAWN. Objective Assessment Sepsis. POA with MRSA bacteremia. -TTE neg. repeat BC positive, 12/10 MRSA pneumonia, POA Hypotension, now off pressor Pancytopenia/anemia PCN allergy, reaction unknown Acute encephalopathy- improved LEONARDO Acute respiratory failure h/o breast cancer, s/p chemo. Port still in place Lupus on Plaquenil Recent E. coli UTI MRSA nares, 11/25, 12/06 Diarrhea. C. diff. neg 12/06 Plan Plan of Care cont Vanc, Monitor WBC, Cr and temp CHARLI pending Port removal considered - will likely need removed Await GPC ID Blood transfusion underway D/w family Attending Co-Sign Attending Co-Sign The patient was seen and interviewed as well as examined at the bedside. The chart was reviewed. The case was discussed. Agree with the plan of care. YOCASTA RODRÍGUEZ APRN Dec 13, 2016 09:05 KEITH DAIGLE MD Dec 13, 2016 14:10
[2016-12-13] MEDS: buPROPion 100 MG TABLET PO SCH ×2 (09:45→21:00)
[2016-12-13] MEDS: HYDROCORTISONE SOD SUCC/PF 100 MG/2 ML VIAL. IV SCH ×2 (09:45→21:18)
[2016-12-13] MEDS: PREGABALIN 75 MG CAPSULE PO SCH (09:45)
[2016-12-13] MEDS: PANTOPRAZOLE IV PUSH 40 MG VIAL. IVP SCH (09:45)
[2016-12-13] MEDS: ALPRAZolam 0.25 MG TABLET PO SCH (09:45)
[2016-12-13] MEDS: CHLORHEXIDINE 0.12% 15 ML MOUTHWASH. MM SCH (09:46)
--- NOTE | 2016-12-13 09:53 | PDOC ---
PROGRESS NOTES Chief Complaint Chief Complaint 1. Severe sepsis with Shock, s/p pressors 2. MRSA bacteremia, + nares 2. Pancytopenia: background of sepsis 3. Acute respiratory failure RE intubation 12/11 4. Malnutrition: MOderate - to severe 5. Lupus, immuno suppressive 6. Recently treated urinary tract infection, Escherichia coli. 7. Hyponatremia.:resolved 8. Mild hyperkalemia:resolved. \ 9. Hx breast CA History of Present Illness History of Present Illness Seen in ICU On vent, awake, calm FAmily at bedside CHart reviewed, other notes read LAbs:Na 146 K 4.4 CRea 1,1 PLatelets 230 today better - Contraindic for CHARLI as per cards, hgb 6.8 today, dropped from 7.2 Heme onc note reviewed Needed to be reintubated 12/10 PLAn: TRAnsfuse 1 pRBC CBC again dominick Steroid decreased today q12 by pulmo (BS ok) COnt TF MOnitor pancytopenia SCDs only SUpprotive care Prog guarded Vent labs/bundle FUll code Vitals Vitals Vital Signs Date Time Temp Pulse Resp B/P (MAP) Pulse Ox O2 Delivery O2 Flow Rate FiO2 12/13/16 09:15 99 Ventilator 12/13/16 06:00 78 17 116/59 (78) 12/13/16 04:00 97.7 97.7 12/12/16 07:00 16.0 Physical Exam General: Cooperative, Other (sedated) Heart: Normal S1, Normal S2 Lungs: Clear, Wheezing, Other (poor airlfolow) Abdomen: Normal bowel sounds, Soft Extremities: No clubbing Skin: Other Labs LABS Laboratory Tests Test 12/12/16 11:15 12/12/16 18:07 12/12/16 23:28 12/13/16 04:30 Glucose (Fingerstick) 161 mg/dL (70-99) 156 mg/dL (70-99) 162 mg/dL (70-99) White Blood Count 3.2 x10^3/uL (4.0-11.0) Red Blood Count 2.28 x10^6/uL (3.50-5.40) Hemoglobin 6.8 g/dL (12.0-15.5) Hematocrit 20.4 % (36.0-47.0) Mean Corpuscular Volume 90 fL (79-100) Mean Corpuscular Hemoglobin 30 pg (25-35) Mean Corpuscular Hemoglobin Concent 34 g/dL (31-37) Red Cell Distribution Width 14.8 % (11.5-14.5) Platelet Count 30 x10^3/uL (140-400) Neutrophils (%) (Auto) 82 % (31-73) Lymphocytes (%) (Auto) 14 % (24-48) Monocytes (%) (Auto) 4 % (0-9) Eosinophils (%) (Auto) 0 % (0-3) Basophils (%) (Auto) 0 % (0-3) Neutrophils # (Auto) 2.6 x10^3uL (1.8-7.7) Lymphocytes # (Auto) 0.5 x10^3/uL (1.0-4.8) Monocytes # (Auto) 0.1 x10^3/uL (0.0-1.1) Eosinophils # (Auto) 0.0 x10^3/uL (0.0-0.7) Basophils # (Auto) 0.0 x10^3/uL (0.0-0.2) Sodium Level 147 mmol/L (136-145) Potassium Level 4.6 mmol/L (3.5-5.1) Chloride Level 115 mmol/L (98-107) Carbon Dioxide Level 23 mmol/L (21-32) Anion Gap 9 (6-14) Blood Urea Nitrogen 63 mg/dL (7-20) Creatinine 1.0 mg/dL (0.6-1.0) Estimated GFR (Cockcroft-Gault) 69.7 Glucose Level 183 mg/dL (70-99) Calcium Level 8.0 mg/dL (8.5-10.1) Test 12/13/16 06:19 12/13/16 07:45 Glucose (Fingerstick) 187 mg/dL (70-99) O2 Saturation 98 % (92-99) Arterial Blood pH 7.42 (7.35-7.45) Arterial Blood pCO2 at Patient Temp 30 mmHg (35-46) Arterial Blood pO2 at Patient Temp 149 mmHg (75-108) Arterial Blood HCO3 19 mmol/L (21-28) Arterial Blood Base Excess -5 mmol/L (-3-3) FiO2 40 Review of Systems Review of Systems intubated, lightly sedated Assessment and Plan Assessmemt and Plan Problems Medical Problems: (1) Respiratory failure Status: Acute Problems: Comment Review of Relevant I have reviewed the following items anselmo (where applicable) has been applied. Labs Laboratory Tests Test 12/11/16 13:00 12/11/16 17:59 12/11/16 23:54 12/12/16 04:10 Glucose (Fingerstick) 164 mg/dL (70-99) 163 mg/dL (70-99) 153 mg/dL (70-99) White Blood Count 2.6 x10^3/uL (4.0-11.0) Red Blood Count 2.41 x10^6/uL (3.50-5.40) Hemoglobin 7.2 g/dL (12.0-15.5) Hematocrit 21.2 % (36.0-47.0) Mean Corpuscular Volume 88 fL (79-100) Mean Corpuscular Hemoglobin 30 pg (25-35) Mean Corpuscular Hemoglobin Concent 34 g/dL (31-37) Red Cell Distribution Width 15.0 % (11.5-14.5) Platelet Count 24 x10^3/uL (140-400) Neutrophils (%) (Auto) 83 % (31-73) Lymphocytes (%) (Auto) 13 % (24-48) Monocytes (%) (Auto) 4 % (0-9) Eosinophils (%) (Auto) 0 % (0-3) Basophils (%) (Auto) 0 % (0-3) Neutrophils # (Auto) 2.2 x10^3uL (1.8-7.7) Lymphocytes # (Auto) 0.3 x10^3/uL (1.0-4.8) Monocytes # (Auto) 0.1 x10^3/uL (0.0-1.1) Eosinophils # (Auto) 0.0 x10^3/uL (0.0-0.7) Basophils # (Auto) 0.0 x10^3/uL (0.0-0.2) Sodium Level 146 mmol/L (136-145) Potassium Level 4.4 mmol/L (3.5-5.1) Chloride Level 115 mmol/L (98-107) Carbon Dioxide Level 21 mmol/L (21-32) Anion Gap 10 (6-14) Blood Urea Nitrogen 64 mg/dL (7-20) Creatinine 1.1 mg/dL (0.6-1.0) Estimated GFR (Cockcroft-Gault) 62.4 Glucose Level 192 mg/dL (70-99) Calcium Level 8.0 mg/dL (8.5-10.1) Test 12/12/16 05:35 12/12/16 08:00 12/12/16 11:15 12/12/16 18:07 Glucose (Fingerstick) 171 mg/dL (70-99) 161 mg/dL (70-99) 156 mg/dL (70-99) O2 Saturation 98 % (92-99) Arterial Blood pH 7.42 (7.35-7.45) Arterial Blood pCO2 at Patient Temp 30 mmHg (35-46) Arterial Blood pO2 at Patient Temp 131 mmHg (75-108) Arterial Blood HCO3 19 mmol/L (21-28) Arterial Blood Base Excess -5 mmol/L (-3-3) FiO2 40% Test 12/12/16 23:28 12/13/16 04:30 12/13/16 06:19 12/13/16 07:45 Glucose (Fingerstick) 162 mg/dL (70-99) 187 mg/dL (70-99) White Blood Count 3.2 x10^3/uL (4.0-11.0) Red Blood Count 2.28 x10^6/uL (3.50-5.40) Hemoglobin 6.8 g/dL (12.0-15.5) Hematocrit 20.4 % (36.0-47.0) Mean Corpuscular Volume 90 fL (79-100) Mean Corpuscular Hemoglobin 30 pg (25-35) Mean Corpuscular Hemoglobin Concent 34 g/dL (31-37) Red Cell Distribution Width 14.8 % (11.5-14.5) Platelet Count 30 x10^3/uL (140-400) Neutrophils (%) (Auto) 82 % (31-73) Lymphocytes (%) (Auto) 14 % (24-48) Monocytes (%) (Auto) 4 % (0-9) Eosinophils (%) (Auto) 0 % (0-3) Basophils (%) (Auto) 0 % (0-3) Neutrophils # (Auto) 2.6 x10^3uL (1.8-7.7) Lymphocytes # (Auto) 0.5 x10^3/uL (1.0-4.8) Monocytes # (Auto) 0.1 x10^3/uL (0.0-1.1) Eosinophils # (Auto) 0.0 x10^3/uL (0.0-0.7) Basophils # (Auto) 0.0 x10^3/uL (0.0-0.2) Sodium Level 147 mmol/L (136-145) Potassium Level 4.6 mmol/L (3.5-5.1) Chloride Level 115 mmol/L (98-107) Carbon Dioxide Level 23 mmol/L (21-32) Anion Gap 9 (6-14) Blood Urea Nitrogen 63 mg/dL (7-20) Creatinine 1.0 mg/dL (0.6-1.0) Estimated GFR (Cockcroft-Gault) 69.7 Glucose Level 183 mg/dL (70-99) Calcium Level 8.0 mg/dL (8.5-10.1) O2 Saturation 98 % (92-99) Arterial Blood pH 7.42 (7.35-7.45) Arterial Blood pCO2 at Patient Temp 30 mmHg (35-46) Arterial Blood pO2 at Patient Temp 149 mmHg (75-108) Arterial Blood HCO3 19 mmol/L (21-28) Arterial Blood Base Excess -5 mmol/L (-3-3) FiO2 40 Laboratory Tests Test 12/12/16 11:15 12/12/16 18:07 12/12/16 23:28 12/13/16 04:30 Glucose (Fingerstick) 161 mg/dL (70-99) 156 mg/dL (70-99) 162 mg/dL (70-99) White Blood Count 3.2 x10^3/uL (4.0-11.0) Red Blood Count 2.28 x10^6/uL (3.50-5.40) Hemoglobin 6.8 g/dL (12.0-15.5) Hematocrit 20.4 % (36.0-47.0) Mean Corpuscular Volume 90 fL (79-100) Mean Corpuscular Hemoglobin 30 pg (25-35) Mean Corpuscular Hemoglobin Concent 34 g/dL (31-37) Red Cell Distribution Width 14.8 % (11.5-14.5) Platelet Count 30 x10^3/uL (140-400) Neutrophils (%) (Auto) 82 % (31-73) Lymphocytes (%) (Auto) 14 % (24-48) Monocytes (%) (Auto) 4 % (0-9) Eosinophils (%) (Auto) 0 % (0-3) Basophils (%) (Auto) 0 % (0-3) Neutrophils # (Auto) 2.6 x10^3uL (1.8-7.7) Lymphocytes # (Auto) 0.5 x10^3/uL (1.0-4.8) Monocytes # (Auto) 0.1 x10^3/uL (0.0-1.1) Eosinophils # (Auto) 0.0 x10^3/uL (0.0-0.7) Basophils # (Auto) 0.0 x10^3/uL (0.0-0.2) Sodium Level 147 mmol/L (136-145) Potassium Level 4.6 mmol/L (3.5-5.1) Chloride Level 115 mmol/L (98-107) Carbon Dioxide Level 23 mmol/L (21-32) Anion Gap 9 (6-14) Blood Urea Nitrogen 63 mg/dL (7-20) Creatinine 1.0 mg/dL (0.6-1.0) Estimated GFR (Cockcroft-Gault) 69.7 Glucose Level 183 mg/dL (70-99) Calcium Level 8.0 mg/dL (8.5-10.1) Test 12/13/16 06:19 12/13/16 07:45 Glucose (Fingerstick) 187 mg/dL (70-99) O2 Saturation 98 % (92-99) Arterial Blood pH 7.42 (7.35-7.45) Arterial Blood pCO2 at Patient Temp 30 mmHg (35-46) Arterial Blood pO2 at Patient Temp 149 mmHg (75-108) Arterial Blood HCO3 19 mmol/L (21-28) Arterial Blood Base Excess -5 mmol/L (-3-3) FiO2 40 Microbiology 12/10/16 Blood Culture - Preliminary, Resulted 12/09/16 Stool Culture - Final, Resulted 12/09/16 Stool Culture Result 1 (LUCINA) - Final, Resulted 12/09/16 Campylobacter Antigen Assay - Preliminary, Resulted 12/09/16 Campylobactor Result 1 - Preliminary, Resulted 12/09/16 Shiga Toxin Test - Final, Resulted 12/08/16 Sputum Culture - Final, Complete 12/08/16 Sputum Result 1 - Final, Complete 12/08/16 Antimicrobic Susceptibility - Final, Complete 12/06/16 Urine Culture - Final, Complete 12/06/16 Urine Culture Result 1 (LUCINA) - Final, Complete Medications Current Medications Sodium Chloride 1,000 ml @ 1,000 mls/hr 1X ONCE IV Last administered on 16:18; Start 12/06/16 at 16:15; Stop 12/06/16 at 17:14; Status DC Vancomycin HCl (Vanco Per Pharmacy) 1 each PRN DAILY PRN MC SEE COMMENTS Last administered on 12/12/16 14:10; Start 12/06/16 at 17:00 Levofloxacin/ Dextrose 150 ml @ 100 mls/hr 1X ONCE IV Last administered on 20:04; Start 12/06/16 at 17:00; Stop 12/06/16 at 18:29; Status DC Vancomycin HCl 2 gm/Sodium Chloride 500 ml @ 250 mls/hr 1X ONCE IV Last administered on 12/06/16 17:11; Start 12/06/16 at 17:00; Stop 12/06/16 at 18:59 ; Status DC Sodium Chloride 1,000 ml @ 1,000 mls/hr 1X ONCE IV Last administered on 17:09; Start 12/06/16 at 17:00; Stop 12/06/16 at 17:59; Status DC Meropenem 500 mg/ Sodium Chloride 50 ml @ 100 mls/hr Q8HRS IV Last administered on 12/10/16 07:30; Start 12/06/16 at 18:00; Stop 12/10/16 at 08:13 ; Status DC Dopamine HCl/ Dextrose 250 ml @ 16.414 mls/ hr 1X ONCE IV Last administered on 12/06/16 17:41; Start 12/06/16 at 17:15; Stop 12/07/16 at 08:28; Status DC Etomidate (Amidate) 20 mg 1X ONCE IV Last administered on 12/06/16 17:19; Start 12/06/16 at 17:15; Stop 12/06/16 at 17:17; Status DC Succinylcholine Chloride (Anectine) 100 mg 1X ONCE IV Last administered on 17:20; Start 12/06/16 at 17:15; Stop 12/06/16 at 17:17; Status DC Vancomycin HCl 1.25 gm/Sodium Chloride 250 ml @ 167 mls/hr Q24H IV Last administered on 12/07/16 18:39; Start 12/07/16 at 17:00; Stop 12/07/16 at 23:00 ; Status DC Vancomycin HCl 1 each 1X ONCE MC ; Start 12/07/16 at 16:30; Stop 12/07/16 at 16 :31; Status Cancel Midazolam HCl 100 ml @ As Directed STK-MED ONCE IV ; Start 12/06/16 at 17:36; Stop 12/06/16 at 17:37; Status DC Midazolam HCl (Versed) 5 mg STK-MED ONCE .ROUTE ; Start 12/06/16 at 17:37; Stop 12/06/16 at 17:38; Status DC Midazolam HCl (Versed) 5 mg PRN Q10MIN PRN IV SEDATION; Start 12/06/16 at 17:45 Hydrocortisone Sodium Succinate (Solu-CORTEF) 100 mg Q8HRS IV Last administered on 12/09/16 13:55; Start 12/06/16 at 18:30; Stop 12/09/16 at 16:21 ; Status DC Norepinephrine Bitartrate 16 mg/ Sodium Chloride 266 ml @ 0 mls/hr CONT PRN IV SEE I/O RECORD; Start 12/06/16 at 19:00; Status UNV Pantoprazole Sodium (Protonix Vial) 40 mg DAILYAC IVP Last administered on 12/13 09:45; Start 12/06/16 at 19:30 Acetaminophen (Tylenol) 325 mg PRN Q6HRS PRN PO MILD PAIN / TEMP; Start at 19:00 Hydralazine HCl (Apresoline) 10 mg PRN Q4HRS PRN IVP ELEVATED BP, SEE COMMENTS Last administered on 12/10/16 07:29; Start 12/06/16 at 19:00 Ondansetron HCl (Zofran) 4 mg PRN Q8HRS PRN IV NAUSEA/VOMITING; Start 12/06/16 at 19:00; Stop 12/12/16 at 08:31; Status DC Albuterol Sulfate (Ventolin Neb Soln) 2.5 mg PRN Q4HRS PRN NEB SHORTNESS OF BREATH; Start 12/06/16 at 19:00 Norepinephrine Bitartrate 250 ml @ 1.875 mls/ hr CONT PRN IV SEE I/O RECORD Last administered on 12/06/16 19:55; Start 12/06/16 at 19:00 Sodium Chloride 1,000 ml @ 1,000 mls/hr 1X ONCE IV Last administered on 19:56; Start 12/06/16 at 19:15; Stop 12/06/16 at 20:14; Status DC Sodium Chloride 1,000 ml @ 75 mls/hr [id number] IV Last administered on 21:55; Start 12/06/16 at 19:15; Stop 12/09/16 at 18:44; Status DC Pneumococcal Polyvalent Vaccine (Do NOT chart on this placeholder) 1 each PRN DAILY PRN MC PT UNABLE TO RESPOND; Start 12/07/16 at 09:30; Status Cancel Pneumococcal Polyvalent Vaccine (Pneumovax 23) 0.5 ml ONCE ONCE VAX IM ; Start 12/08/16 at 09:00; Stop 12/08/16 at 09:01; Status DC Albuterol/ Ipratropium (Duoneb) 3 ml RTQID NEB Last administered on 12/13/16 07:41; Start 12/07/16 at 12:00 Midazolam HCl 100 ml @ 0 mls/hr CONT PRN IV SEE I/O RECORD Last administered on 12/07/16 10:29; Start 12/07/16 at 10:15 Fentanyl Citrate (Fentanyl 2ml Vial) 25 mcg PRN Q1HR PRN IV PAIN Last administered on 12/13/16 00:52; Start 12/07/16 at 10:45 Pantoprazole Sodium (Protonix Vial) 40 mg DAILYAC IVP ; Start 12/07/16 at 17:00 ; Status Cancel Vancomycin HCl 1.25 gm/Sodium Chloride 250 ml @ 167 mls/hr Q12H IV Last administered on 12/13/16 06:24; Start 12/08/16 at 06:00 Vancomycin HCl 1 each 1X ONCE MC ; Start 12/08/16 at 17:30; Stop 12/08/16 at 17 :31; Status DC Vancomycin HCl 1 gm/Sodium Chloride 250 ml @ 250 mls/hr Q12H IV ; Start at 18:00; Status Cancel Chlorhexidine Gluconate (Peridex) 15 ml BID SWSP ; Start 12/09/16 at 21:00; Stop 12/10/16 at 07:23; Status DC Hydrocortisone Sodium Succinate (Solu-CORTEF) 100 mg Q12HR IV Last administered on 12/13/16 09:45; Start 12/09/16 at 21:00 Amino Acids/ Glycerin/ Electrolytes 1,000 ml @ 40 mls/hr Q24H IV Last administered on 12/09/16 17:56; Start 12/09/16 at 17:00; Stop 12/10/16 at 14:16 ; Status DC Alprazolam (Xanax) 0.25 mg DAILY PO Last administered on 12/13/16 09:45; Start 12/10/16 at 09:00 Bupropion HCl (Wellbutrin) 100 mg BID PO Last administered on 12/13/16 09:45; Start 12/09/16 at 21:00 Gabapentin (Neurontin) 300 mg BID PO ; Start 12/09/16 at 21:00; Status Cancel Ropinirole HCl (Requip) 0.25 mg QHS PO Last administered on 12/12/16 21:09; Start 12/09/16 at 21:00 Pregabalin (Lyrica) 150 mg DAILY PO Last administered on 12/13/16 09:45; Start 12/10/16 at 09:00 Epinephrine (S2 Racepinephrine) 0.5 ml 1X ONCE NEB Last administered on 07:45; Start 12/10/16 at 07:45; Stop 12/10/16 at 07:46; Status DC Lorazepam (Ativan) 2 mg 1X ONCE IV Last administered on 12/10/16 08:33; Start 12/10/16 at 08:00; Stop 12/10/16 at 08:01; Status DC Succinylcholine Chloride (Anectine) 200 mg STK-MED ONCE .ROUTE ; Start 12/10/16 at 10:28; Stop 12/10/16 at 10:29; Status DC Propofol 100 ml @ As Directed STK-MED ONCE IV ; Start 12/10/16 at 10:28; Stop 12/10/16 at 10:29; Status DC Calcium Gluconate (Calcium Gluconate) 1,000 mg 1X ONCE IVP Last administered on 12/10/16 11:41; Start 12/10/16 at 11:30; Stop 12/10/16 at 11:31; Status DC Succinylcholine Chloride (Anectine) 200 mg 1X ONCE IV Last administered on 11:41; Start 12/10/16 at 11:30; Stop 12/10/16 at 11:31; Status DC Propofol 100 ml @ 0 mls/hr CONT PRN IV SEE I/O RECORD Last administered on 12/13 00:57; Start 12/10/16 at 11:30 Insulin Aspart (NovoLOG) 0-5 UNITS TIDWMEALS SQ ; Start 12/11/16 at 08:00; Stop 12/11/16 at 08:00; Status DC Dextrose (Dextrose 50%-Water Syringe) 12.5 gm PRN Q15MIN PRN IV SEE COMMENTS; Start 12/10/16 at 20:30 Insulin Aspart (NovoLOG) 0-5 UNITS Q6HRS SQ Last administered on 12/13/16 06: 25; Start 12/11/16 at 00:00 Chlorhexidine Gluconate (Peridex) 15 ml BID MM Last administered on 12/13/16 09:46; Start 12/11/16 at 21:00 Fentanyl Citrate (Fentanyl 2ml Vial) 25 mcg PRN Q5MIN PRN IV MILD PAIN; Start 12/12/16 at 07:00; Stop 12/13/16 at 06:59; Status DC Fentanyl Citrate (Fentanyl 2ml Vial) 50 mcg PRN Q5MIN PRN IV MODERATE PAIN; Start 12/12/16 at 07:00; Stop 12/13/16 at 06:59; Status DC Morphine Sulfate 1 mg PRN Q10MIN PRN IV SEVERE PAIN; Start 12/12/16 at 07:00; Stop 12/13/16 at 06:59; Status DC Ringer's Solution 1,000 ml @ 30 mls/hr Q24H IV ; Start 12/12/16 at 07:00; Stop 12/12/16 at 18:59; Status DC Lidocaine HCl 2 ml PRN 1X PRN ID PRIOR TO IV START; Start 12/12/16 at 07:00; Stop 12/13/16 at 06:59; Status DC Hydromorphone HCl (Dilaudid) 0.5 mg PRN Q10MIN PRN IV SEV PAIN, Second choice; Start 12/12/16 at 07:00; Stop 12/13/16 at 06:59; Status DC Prochlorperazine Edisylate (Compazine) 5 mg PACU PRN PRN IV NAUSEA, MRX1; Start 12/12/16 at 07:00; Stop 12/13/16 at 06:59; Status DC Lidocaine HCl (Lidocaine Pf 2% Vial) 5 ml STK-MED ONCE .ROUTE ; Start 12/12/16 at 08:15; Stop 12/12/16 at 08:16; Status DC Propofol 0 ml @ As Directed STK-MED ONCE IV ; Start 12/12/16 at 08:15; Stop at 08:16; Status DC Ondansetron HCl (Zofran) 4 mg PRN Q6HRS PRN IV NAUSEA/VOMITING; Start 12/12/16 at 19:00 Acetaminophen (Tylenol) 650 mg PRN Q6HRS PRN PEG MILD PAIN / TEMP; Start at 08:30 Active Scripts Active Oxycodone Hcl 5 Mg Tablet 5 Mg PO PRN Q6HRS PRN Reported Albuterol Sulfate Neb Soln (Albuterol Sulfate) 1.25 Mg/3 Ml Vial.neb 1 Vial NEB Q6HRS Ranitidine Hcl 150 Mg Capsule 75 Mg PO DAILY Ondansetron Hcl 8 Mg Tablet 8 Mg PO DAILY Azithromycin Tablet (Azithromycin) 250 Mg Tablet 250 Mg PO DAILY Bupropion Hcl 100 Mg Tablet 100 Mg PO BID Nasal Allergy [place] (Cromolyn Sodium) 13 Ml [place].pump 13 Ml NS DAILY Gabapentin 300 Mg Capsule 300 Mg PO BID Hydroxyzine Hcl 25 Mg Tablet 25 Mg PO DAILY Nystatin 15 Gm Cream..g. 15 Gm TP BID Duloxetine Hcl 60 Mg Capsule.dr 60 Mg PO DAILY Clonidine Hcl 0.1 Mg Tablet 0.1 Mg PO DAILY Lisinopril 20 Mg Tablet 20 Mg PO DAILY Famciclovir 125 Mg Tablet 125 Mg PO DAILY Ropinirole Hcl 0.25 Mg Tablet 0.25 Mg PO DAILY Hydroxychloroquine Sulfate 200 Mg Tablet 200 Mg PO DAILY Lyrica (Pregabalin) 150 Mg Capsule 150 Mg PO DAILY Furosemide 20 Mg Tablet 20 Mg PO DAILY Alprazolam 0.25 Mg Tablet 0.25 Mg PO Oxycodone Hcl 5 Mg Tablet 5 Mg PO PRN Q4HRS PRN Ibuprofen 400 Mg Tablet 400 Mg PO PRN DAILY PRN Multivitamins (Multivitamin) 1 Each Tablet 1 Each PO DAILY Oxycodone-Acetaminophen 10-325 (Oxycodone Hcl/Acetaminophen) 1 Each Tablet 1 Each PO PRN Q4-6HRS PRN Plaquenil (Hydroxychloroquine Sulfate) 200 Mg Tablet 200 Mg PO BID Vitals/I & O Vital Sign - Last 24 Hours 12/12/16 12/12/16 12/12/16 12/12/16 10:00 11:00 11:13 12:00 Pulse 90 91 Resp 18 B/P (MAP) 131/71 (91) 139/73 (95) Pulse Ox 99 99 99 O2 Delivery Ventilator Ventilator Ventilator Mechanical Ventilator 12/12/16 12/12/16 12/12/16 12/12/16 12:00 12:17 13:00 13:57 Temp 98.6 98.6 Pulse 90 86 Resp 18 16 B/P (MAP) 118/65 (82) 119/66 (83) Pulse Ox 99 99 99 99 O2 Delivery Ventilator Ventilator Ventilator Ventilator 12/12/16 12/12/16 12/12/16 12/12/16 14:00 15:00 16:00 16:00 Pulse 86 89 87 Resp 17 21 B/P (MAP) 134/67 (89) 119/64 (82) 116/64 (81) Pulse Ox 100 100 99 O2 Delivery Ventilator Ventilator Mechanical Ventilator Ventilator 12/12/16 12/12/16 12/12/16 12/12/16 16:46 17:00 18:00 19:00 Temp 98.4 98.4 Pulse 88 88 80 Resp 20 18 15 B/P (MAP) 133/71 (91) 120/65 (83) 143/77 (99) Pulse Ox 100 99 99 99 O2 Delivery Ventilator Ventilator Ventilator Ventilator 12/12/16 12/12/16 12/12/16 12/12/16 19:33 19:53 20:00 21:00 Temp 98.6 98.6 Pulse 87 86 Resp 15 16 B/P (MAP) 134/64 (87) 119/57 (77) Pulse Ox 100 99 100 O2 Delivery Mechanical Ventilator Ventilator Ventilator Ventilator 12/12/16 12/12/16 12/12/16 12/12/16 22:00 23:00 23:39 23:59 Pulse 86 83 Resp 16 16 B/P (MAP) 124/63 (83) 127/60 (82) Pulse Ox 100 100 100 O2 Delivery Ventilator Ventilator Ventilator Mechanical Ventilator 12/13/16 12/13/16 12/13/16 12/13/16 00:00 00:52 01:00 01:22 Temp 98.4 98.4 Pulse 86 82 Resp 16 16 16 16 B/P (MAP) 134/62 (86) 116/56 (76) Pulse Ox 100 100 98 99 O2 Delivery Ventilator Ventilator Ventilator Ventilator 12/13/16 12/13/16 12/13/16 12/13/16 01:40 02:00 03:00 03:45 Pulse 85 77 Resp 16 16 B/P (MAP) 123/60 (81) 121/62 (81) Pulse Ox 100 98 100 100 O2 Delivery Ventilator Ventilator Ventilator Ventilator 12/13/16 12/13/16 12/13/16 12/13/16 03:46 04:00 05:00 05:42 Temp 97.7 97.7 Pulse 80 79 Resp 16 16 B/P (MAP) 115/59 (77) 115/59 (77) Pulse Ox 100 100 100 O2 Delivery Mechanical Ventilator Ventilator Ventilator Ventilator 12/13/16 12/13/16 12/13/16 06:00 07:42 09:15 Pulse 78 Resp 17 B/P (MAP) 116/59 (78) Pulse Ox 100 100 99 O2 Delivery Ventilator Ventilator Ventilator Intake and Output 12/12/16 12/12/16 12/13/16 14:59 22:59 06:59 Intake Total 620 ml 1964.74 ml 1092 ml Output Total 350 ml 1374 ml 505 ml Balance 270 ml 590.74 ml 587 ml Nutrition Consultation Dietary Evaluation: Recommendations by RD: Increase Calorie Intake Comments: Contiue the TF's with Diabetisource AC, goal rate 60 ml/hr start at 20 ml/hr, increase by 20 ml/hr q8h to goal flushes 200 cc q6h Expected Outcomes/Goals: tolerate the TF's at goal rate- goal met meet 75% estimated nutrition needs- goal met Malnutrition Findings: Reduced Hander In Strength: N/A Reduced Hander In Strength (Non-Sev: N/A Malnutrition related to morbid: No Weight Status: Obese SHARIF REYNA MD Dec 13, 2016 09:53
[2016-12-13] MEDS: VANCOMYCIN PER PHARMACY MC PRN ×2 (09:57→19:13)
[2016-12-13 10:15] LABS: HCO3 ABG 20 mmol/L (21-28); PCO2 ABG 33 mmHg (35-46); PO2 ABG 440 mmHg (75-108); SAT O2 ABG 99 % (92-99)
--- NOTE | 2016-12-13 10:50 | PDOC ---
PROGRESS NOTES Subjective Subjective c/c - f/u of pancytopenia ROS - on vent Objective Objective Vital Signs Date Time Temp Pulse Resp B/P (MAP) Pulse Ox O2 Delivery O2 Flow Rate FiO2 12/13/16 10:35 98.0 79 16 137/74 98.0 12/13/16 09:15 99 Ventilator 12/12/16 07:00 16.0 Intake and Output 12/13/16 07:00 Intake Total 3676.74 ml Output Total 2179 ml Balance 1497.74 ml IV Total 642.74 ml Tube Feeding 2834 ml Other 200 ml Output Urine Total 2179 ml Physical Exam Heart: Normal S1, Normal S2 General: Alert, Oriented X3 HEENT: Atraumatic Lungs: Clear to auscultation Assessment Assessment Problems Medical Problems: (1) Respiratory failure Status: Acute ASSESSMENT AND PLAN: The patient is a 55-year-old female with the following medical problems: 1. Acute pancytopenia, likely related to her severe sepsis with methicillin-resistant Staphylococcus aureus bacteremia. Her CBC was normal in late 10/2016. I recommend continuing to treat the underlying infection as you are doing. Transfuse for hemoglobin less than 7, platelets less than 20. She has no evidence of bleeding at this time. 2. Left upper extremity swelling. Ultrasound negative for a DVT 3. 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 She has several risk features. Ultimately, she agreed to have a mastectomy, which was completed in 04/2015. Her tumor was ER/ID negative, HER2 positive. She completed adjuvant Adriamycin/Cytoxan in 06/2015 and Taxol/Herceptin. She completed 1 year of Herceptin in 07/2016. A CT scan in 07/2016 showed indeterminant hilar lymph nodes and pulmonary nodules and bone scan was negative for any metastases. 4. Anemia worse, Hb 6.8, agree to transfuse. Comment Review of Relevant I have reviewed the following items anselmo (where applicable) has been applied. Labs Laboratory Tests Test 12/11/16 13:00 12/11/16 17:59 12/11/16 23:54 12/12/16 04:10 Glucose (Fingerstick) 164 mg/dL (70-99) 163 mg/dL (70-99) 153 mg/dL (70-99) White Blood Count 2.6 x10^3/uL (4.0-11.0) Red Blood Count 2.41 x10^6/uL (3.50-5.40) Hemoglobin 7.2 g/dL (12.0-15.5) Hematocrit 21.2 % (36.0-47.0) Mean Corpuscular Volume 88 fL (79-100) Mean Corpuscular Hemoglobin 30 pg (25-35) Mean Corpuscular Hemoglobin Concent 34 g/dL (31-37) Red Cell Distribution Width 15.0 % (11.5-14.5) Platelet Count 24 x10^3/uL (140-400) Neutrophils (%) (Auto) 83 % (31-73) Lymphocytes (%) (Auto) 13 % (24-48) Monocytes (%) (Auto) 4 % (0-9) Eosinophils (%) (Auto) 0 % (0-3) Basophils (%) (Auto) 0 % (0-3) Neutrophils # (Auto) 2.2 x10^3uL (1.8-7.7) Lymphocytes # (Auto) 0.3 x10^3/uL (1.0-4.8) Monocytes # (Auto) 0.1 x10^3/uL (0.0-1.1) Eosinophils # (Auto) 0.0 x10^3/uL (0.0-0.7) Basophils # (Auto) 0.0 x10^3/uL (0.0-0.2) Sodium Level 146 mmol/L (136-145) Potassium Level 4.4 mmol/L (3.5-5.1) Chloride Level 115 mmol/L (98-107) Carbon Dioxide Level 21 mmol/L (21-32) Anion Gap 10 (6-14) Blood Urea Nitrogen 64 mg/dL (7-20) Creatinine 1.1 mg/dL (0.6-1.0) Estimated GFR (Cockcroft-Gault) 62.4 Glucose Level 192 mg/dL (70-99) Calcium Level 8.0 mg/dL (8.5-10.1) Test 12/12/16 05:35 12/12/16 08:00 12/12/16 11:15 12/12/16 18:07 Glucose (Fingerstick) 171 mg/dL (70-99) 161 mg/dL (70-99) 156 mg/dL (70-99) O2 Saturation 98 % (92-99) Arterial Blood pH 7.42 (7.35-7.45) Arterial Blood pCO2 at Patient Temp 30 mmHg (35-46) Arterial Blood pO2 at Patient Temp 131 mmHg (75-108) Arterial Blood HCO3 19 mmol/L (21-28) Arterial Blood Base Excess -5 mmol/L (-3-3) FiO2 40% Test 12/12/16 23:28 12/13/16 04:30 12/13/16 06:19 12/13/16 07:45 Glucose (Fingerstick) 162 mg/dL (70-99) 187 mg/dL (70-99) White Blood Count 3.2 x10^3/uL (4.0-11.0) Red Blood Count 2.28 x10^6/uL (3.50-5.40) Hemoglobin 6.8 g/dL (12.0-15.5) Hematocrit 20.4 % (36.0-47.0) Mean Corpuscular Volume 90 fL (79-100) Mean Corpuscular Hemoglobin 30 pg (25-35) Mean Corpuscular Hemoglobin Concent 34 g/dL (31-37) Red Cell Distribution Width 14.8 % (11.5-14.5) Platelet Count 30 x10^3/uL (140-400) Neutrophils (%) (Auto) 82 % (31-73) Lymphocytes (%) (Auto) 14 % (24-48) Monocytes (%) (Auto) 4 % (0-9) Eosinophils (%) (Auto) 0 % (0-3) Basophils (%) (Auto) 0 % (0-3) Neutrophils # (Auto) 2.6 x10^3uL (1.8-7.7) Lymphocytes # (Auto) 0.5 x10^3/uL (1.0-4.8) Monocytes # (Auto) 0.1 x10^3/uL (0.0-1.1) Eosinophils # (Auto) 0.0 x10^3/uL (0.0-0.7) Basophils # (Auto) 0.0 x10^3/uL (0.0-0.2) Sodium Level 147 mmol/L (136-145) Potassium Level 4.6 mmol/L (3.5-5.1) Chloride Level 115 mmol/L (98-107) Carbon Dioxide Level 23 mmol/L (21-32) Anion Gap 9 (6-14) Blood Urea Nitrogen 63 mg/dL (7-20) Creatinine 1.0 mg/dL (0.6-1.0) Estimated GFR (Cockcroft-Gault) 69.7 Glucose Level 183 mg/dL (70-99) Calcium Level 8.0 mg/dL (8.5-10.1) O2 Saturation 98 % (92-99) Arterial Blood pH 7.42 (7.35-7.45) Arterial Blood pCO2 at Patient Temp 30 mmHg (35-46) Arterial Blood pO2 at Patient Temp 149 mmHg (75-108) Arterial Blood HCO3 19 mmol/L (21-28) Arterial Blood Base Excess -5 mmol/L (-3-3) FiO2 40 Test 12/13/16 10:00 O2 Saturation 99 % (92-99) Arterial Blood pH 7.40 (7.35-7.45) Arterial Blood pCO2 at Patient Temp 33 mmHg (35-46) Arterial Blood pO2 at Patient Temp 440 mmHg (75-108) Arterial Blood HCO3 20 mmol/L (21-28) Arterial Blood Base Excess -4 mmol/L (-3-3) FiO2 35.0 Laboratory Tests Test 12/12/16 11:15 12/12/16 18:07 12/12/16 23:28 12/13/16 04:30 Glucose (Fingerstick) 161 mg/dL (70-99) 156 mg/dL (70-99) 162 mg/dL (70-99) White Blood Count 3.2 x10^3/uL (4.0-11.0) Red Blood Count 2.28 x10^6/uL (3.50-5.40) Hemoglobin 6.8 g/dL (12.0-15.5) Hematocrit 20.4 % (36.0-47.0) Mean Corpuscular Volume 90 fL (79-100) Mean Corpuscular Hemoglobin 30 pg (25-35) Mean Corpuscular Hemoglobin Concent 34 g/dL (31-37) Red Cell Distribution Width 14.8 % (11.5-14.5) Platelet Count 30 x10^3/uL (140-400) Neutrophils (%) (Auto) 82 % (31-73) Lymphocytes (%) (Auto) 14 % (24-48) Monocytes (%) (Auto) 4 % (0-9) Eosinophils (%) (Auto) 0 % (0-3) Basophils (%) (Auto) 0 % (0-3) Neutrophils # (Auto) 2.6 x10^3uL (1.8-7.7) Lymphocytes # (Auto) 0.5 x10^3/uL (1.0-4.8) Monocytes # (Auto) 0.1 x10^3/uL (0.0-1.1) Eosinophils # (Auto) 0.0 x10^3/uL (0.0-0.7) Basophils # (Auto) 0.0 x10^3/uL (0.0-0.2) Sodium Level 147 mmol/L (136-145) Potassium Level 4.6 mmol/L (3.5-5.1) Chloride Level 115 mmol/L (98-107) Carbon Dioxide Level 23 mmol/L (21-32) Anion Gap 9 (6-14) Blood Urea Nitrogen 63 mg/dL (7-20) Creatinine 1.0 mg/dL (0.6-1.0) Estimated GFR (Cockcroft-Gault) 69.7 Glucose Level 183 mg/dL (70-99) Calcium Level 8.0 mg/dL (8.5-10.1) Test 12/13/16 06:19 12/13/16 07:45 12/13/16 10:00 Glucose (Fingerstick) 187 mg/dL (70-99) O2 Saturation 98 % (92-99) 99 % (92-99) Arterial Blood pH 7.42 (7.35-7.45) 7.40 (7.35-7.45) Arterial Blood pCO2 at Patient Temp 30 mmHg (35-46) 33 mmHg (35-46) Arterial Blood pO2 at Patient Temp 149 mmHg (75-108) 440 mmHg (75-108) Arterial Blood HCO3 19 mmol/L (21-28) 20 mmol/L (21-28) Arterial Blood Base Excess -5 mmol/L (-3-3) -4 mmol/L (-3-3) FiO2 40 35.0 Microbiology 12/10/16 Blood Culture - Preliminary, Resulted 12/09/16 Stool Culture - Final, Resulted 12/09/16 Stool Culture Result 1 (LUCINA) - Final, Resulted 12/09/16 Campylobacter Antigen Assay - Preliminary, Resulted 12/09/16 Campylobactor Result 1 - Preliminary, Resulted 12/09/16 Shiga Toxin Test - Final, Resulted 12/08/16 Sputum Culture - Final, Complete 12/08/16 Sputum Result 1 - Final, Complete 12/08/16 Antimicrobic Susceptibility - Final, Complete 12/06/16 Urine Culture - Final, Complete 12/06/16 Urine Culture Result 1 (LUCINA) - Final, Complete Medications Current Medications Sodium Chloride 1,000 ml @ 1,000 mls/hr 1X ONCE IV Last administered on 16:18; Start 12/06/16 at 16:15; Stop 12/06/16 at 17:14; Status DC Vancomycin HCl (Vanco Per Pharmacy) 1 each PRN DAILY PRN MC SEE COMMENTS Last administered on 12/13/16 09:57; Start 12/06/16 at 17:00 Levofloxacin/ Dextrose 150 ml @ 100 mls/hr 1X ONCE IV Last administered on 20:04; Start 12/06/16 at 17:00; Stop 12/06/16 at 18:29; Status DC Vancomycin HCl 2 gm/Sodium Chloride 500 ml @ 250 mls/hr 1X ONCE IV Last administered on 12/06/16 17:11; Start 12/06/16 at 17:00; Stop 12/06/16 at 18:59 ; Status DC Sodium Chloride 1,000 ml @ 1,000 mls/hr 1X ONCE IV Last administered on 17:09; Start 12/06/16 at 17:00; Stop 12/06/16 at 17:59; Status DC Meropenem 500 mg/ Sodium Chloride 50 ml @ 100 mls/hr Q8HRS IV Last administered on 12/10/16 07:30; Start 12/06/16 at 18:00; Stop 12/10/16 at 08:13 ; Status DC Dopamine HCl/ Dextrose 250 ml @ 16.414 mls/ hr 1X ONCE IV Last administered on 12/06/16 17:41; Start 12/06/16 at 17:15; Stop 12/07/16 at 08:28; Status DC Etomidate (Amidate) 20 mg 1X ONCE IV Last administered on 12/06/16 17:19; Start 12/06/16 at 17:15; Stop 12/06/16 at 17:17; Status DC Succinylcholine Chloride (Anectine) 100 mg 1X ONCE IV Last administered on 17:20; Start 12/06/16 at 17:15; Stop 12/06/16 at 17:17; Status DC Vancomycin HCl 1.25 gm/Sodium Chloride 250 ml @ 167 mls/hr Q24H IV Last administered on 12/07/16 18:39; Start 12/07/16 at 17:00; Stop 12/07/16 at 23:00 ; Status DC Vancomycin HCl 1 each 1X ONCE MC ; Start 12/07/16 at 16:30; Stop 12/07/16 at 16 :31; Status Cancel Midazolam HCl 100 ml @ As Directed STK-MED ONCE IV ; Start 12/06/16 at 17:36; Stop 12/06/16 at 17:37; Status DC Midazolam HCl (Versed) 5 mg STK-MED ONCE .ROUTE ; Start 12/06/16 at 17:37; Stop 12/06/16 at 17:38; Status DC Midazolam HCl (Versed) 5 mg PRN Q10MIN PRN IV SEDATION; Start 12/06/16 at 17:45 Hydrocortisone Sodium Succinate (Solu-CORTEF) 100 mg Q8HRS IV Last administered on 12/09/16 13:55; Start 12/06/16 at 18:30; Stop 12/09/16 at 16:21 ; Status DC Norepinephrine Bitartrate 16 mg/ Sodium Chloride 266 ml @ 0 mls/hr CONT PRN IV SEE I/O RECORD; Start 12/06/16 at 19:00; Status UNV Pantoprazole Sodium (Protonix Vial) 40 mg DAILYAC IVP Last administered on 12/13 09:45; Start 12/06/16 at 19:30 Acetaminophen (Tylenol) 325 mg PRN Q6HRS PRN PO MILD PAIN / TEMP; Start at 19:00 Hydralazine HCl (Apresoline) 10 mg PRN Q4HRS PRN IVP ELEVATED BP, SEE COMMENTS Last administered on 12/10/16 07:29; Start 12/06/16 at 19:00 Ondansetron HCl (Zofran) 4 mg PRN Q8HRS PRN IV NAUSEA/VOMITING; Start 12/06/16 at 19:00; Stop 12/12/16 at 08:31; Status DC Albuterol Sulfate (Ventolin Neb Soln) 2.5 mg PRN Q4HRS PRN NEB SHORTNESS OF BREATH; Start 12/06/16 at 19:00 Norepinephrine Bitartrate 250 ml @ 1.875 mls/ hr CONT PRN IV SEE I/O RECORD Last administered on 12/06/16 19:55; Start 12/06/16 at 19:00 Sodium Chloride 1,000 ml @ 1,000 mls/hr 1X ONCE IV Last administered on 19:56; Start 12/06/16 at 19:15; Stop 12/06/16 at 20:14; Status DC Sodium Chloride 1,000 ml @ 75 mls/hr [id number] IV Last administered on 21:55; Start 12/06/16 at 19:15; Stop 12/09/16 at 18:44; Status DC Pneumococcal Polyvalent Vaccine (Do NOT chart on this placeholder) 1 each PRN DAILY PRN MC PT UNABLE TO RESPOND; Start 12/07/16 at 09:30; Status Cancel Pneumococcal Polyvalent Vaccine (Pneumovax 23) 0.5 ml ONCE ONCE VAX IM ; Start 12/08/16 at 09:00; Stop 12/08/16 at 09:01; Status DC Albuterol/ Ipratropium (Duoneb) 3 ml RTQID NEB Last administered on 12/13/16 07:41; Start 12/07/16 at 12:00 Midazolam HCl 100 ml @ 0 mls/hr CONT PRN IV SEE I/O RECORD Last administered on 12/07/16 10:29; Start 12/07/16 at 10:15 Fentanyl Citrate (Fentanyl 2ml Vial) 25 mcg PRN Q1HR PRN IV PAIN Last administered on 12/13/16 00:52; Start 12/07/16 at 10:45 Pantoprazole Sodium (Protonix Vial) 40 mg DAILYAC IVP ; Start 12/07/16 at 17:00 ; Status Cancel Vancomycin HCl 1.25 gm/Sodium Chloride 250 ml @ 167 mls/hr Q12H IV Last administered on 12/13/16 06:24; Start 12/08/16 at 06:00 Vancomycin HCl 1 each 1X ONCE MC ; Start 12/08/16 at 17:30; Stop 12/08/16 at 17 :31; Status DC Vancomycin HCl 1 gm/Sodium Chloride 250 ml @ 250 mls/hr Q12H IV ; Start at 18:00; Status Cancel Chlorhexidine Gluconate (Peridex) 15 ml BID SWSP ; Start 12/09/16 at 21:00; Stop 12/10/16 at 07:23; Status DC Hydrocortisone Sodium Succinate (Solu-CORTEF) 100 mg Q12HR IV Last administered on 12/13/16 09:45; Start 12/09/16 at 21:00 Amino Acids/ Glycerin/ Electrolytes 1,000 ml @ 40 mls/hr Q24H IV Last administered on 12/09/16 17:56; Start 12/09/16 at 17:00; Stop 12/10/16 at 14:16 ; Status DC Alprazolam (Xanax) 0.25 mg DAILY PO Last administered on 12/13/16 09:45; Start 12/10/16 at 09:00 Bupropion HCl (Wellbutrin) 100 mg BID PO Last administered on 12/13/16 09:45; Start 12/09/16 at 21:00 Gabapentin (Neurontin) 300 mg BID PO ; Start 12/09/16 at 21:00; Status Cancel Ropinirole HCl (Requip) 0.25 mg QHS PO Last administered on 12/12/16 21:09; Start 12/09/16 at 21:00 Pregabalin (Lyrica) 150 mg DAILY PO Last administered on 12/13/16 09:45; Start 12/10/16 at 09:00 Epinephrine (S2 Racepinephrine) 0.5 ml 1X ONCE NEB Last administered on 07:45; Start 12/10/16 at 07:45; Stop 12/10/16 at 07:46; Status DC Lorazepam (Ativan) 2 mg 1X ONCE IV Last administered on 12/10/16 08:33; Start 12/10/16 at 08:00; Stop 12/10/16 at 08:01; Status DC Succinylcholine Chloride (Anectine) 200 mg STK-MED ONCE .ROUTE ; Start 12/10/16 at 10:28; Stop 12/10/16 at 10:29; Status DC Propofol 100 ml @ As Directed STK-MED ONCE IV ; Start 12/10/16 at 10:28; Stop 12/10/16 at 10:29; Status DC Calcium Gluconate (Calcium Gluconate) 1,000 mg 1X ONCE IVP Last administered on 12/10/16 11:41; Start 12/10/16 at 11:30; Stop 12/10/16 at 11:31; Status DC Succinylcholine Chloride (Anectine) 200 mg 1X ONCE IV Last administered on 11:41; Start 12/10/16 at 11:30; Stop 12/10/16 at 11:31; Status DC Propofol 100 ml @ 0 mls/hr CONT PRN IV SEE I/O RECORD Last administered on 12/13 00:57; Start 12/10/16 at 11:30 Insulin Aspart (NovoLOG) 0-5 UNITS TIDWMEALS SQ ; Start 12/11/16 at 08:00; Stop 12/11/16 at 08:00; Status DC Dextrose (Dextrose 50%-Water Syringe) 12.5 gm PRN Q15MIN PRN IV SEE COMMENTS; Start 12/10/16 at 20:30 Insulin Aspart (NovoLOG) 0-5 UNITS Q6HRS SQ Last administered on 12/13/16 06: 25; Start 12/11/16 at 00:00 Chlorhexidine Gluconate (Peridex) 15 ml BID MM Last administered on 12/13/16 09:46; Start 12/11/16 at 21:00 Fentanyl Citrate (Fentanyl 2ml Vial) 25 mcg PRN Q5MIN PRN IV MILD PAIN; Start 12/12/16 at 07:00; Stop 12/13/16 at 06:59; Status DC Fentanyl Citrate (Fentanyl 2ml Vial) 50 mcg PRN Q5MIN PRN IV MODERATE PAIN; Start 12/12/16 at 07:00; Stop 12/13/16 at 06:59; Status DC Morphine Sulfate 1 mg PRN Q10MIN PRN IV SEVERE PAIN; Start 12/12/16 at 07:00; Stop 12/13/16 at 06:59; Status DC Ringer's Solution 1,000 ml @ 30 mls/hr Q24H IV ; Start 12/12/16 at 07:00; Stop 12/12/16 at 18:59; Status DC Lidocaine HCl 2 ml PRN 1X PRN ID PRIOR TO IV START; Start 12/12/16 at 07:00; Stop 12/13/16 at 06:59; Status DC Hydromorphone HCl (Dilaudid) 0.5 mg PRN Q10MIN PRN IV SEV PAIN, Second choice; Start 12/12/16 at 07:00; Stop 12/13/16 at 06:59; Status DC Prochlorperazine Edisylate (Compazine) 5 mg PACU PRN PRN IV NAUSEA, MRX1; Start 12/12/16 at 07:00; Stop 12/13/16 at 06:59; Status DC Lidocaine HCl (Lidocaine Pf 2% Vial) 5 ml STK-MED ONCE .ROUTE ; Start 12/12/16 at 08:15; Stop 12/12/16 at 08:16; Status DC Propofol 0 ml @ As Directed STK-MED ONCE IV ; Start 12/12/16 at 08:15; Stop at 08:16; Status DC Ondansetron HCl (Zofran) 4 mg PRN Q6HRS PRN IV NAUSEA/VOMITING; Start 12/12/16 at 19:00 Acetaminophen (Tylenol) 650 mg PRN Q6HRS PRN PEG MILD PAIN / TEMP; Start at 08:30 Vancomycin HCl 1 each 1X ONCE MC Last administered on 12/13/16t 10:00; Start 12/13/16 at 10:00; Stop 12/13/16 at 10:01; Status DC Active Scripts Active Oxycodone Hcl 5 Mg Tablet 5 Mg PO PRN Q6HRS PRN Reported Albuterol Sulfate Neb Soln (Albuterol Sulfate) 1.25 Mg/3 Ml Vial.neb 1 Vial NEB Q6HRS Ranitidine Hcl 150 Mg Capsule 75 Mg PO DAILY Ondansetron Hcl 8 Mg Tablet 8 Mg PO DAILY Azithromycin Tablet (Azithromycin) 250 Mg Tablet 250 Mg PO DAILY Bupropion Hcl 100 Mg Tablet 100 Mg PO BID Nasal Allergy [place] (Cromolyn Sodium) 13 Ml [place].pump 13 Ml NS DAILY Gabapentin 300 Mg Capsule 300 Mg PO BID Hydroxyzine Hcl 25 Mg Tablet 25 Mg PO DAILY Nystatin 15 Gm Cream..g. 15 Gm TP BID Duloxetine Hcl 60 Mg Capsule.dr 60 Mg PO DAILY Clonidine Hcl 0.1 Mg Tablet 0.1 Mg PO DAILY Lisinopril 20 Mg Tablet 20 Mg PO DAILY Famciclovir 125 Mg Tablet 125 Mg PO DAILY Ropinirole Hcl 0.25 Mg Tablet 0.25 Mg PO DAILY Hydroxychloroquine Sulfate 200 Mg Tablet 200 Mg PO DAILY Lyrica (Pregabalin) 150 Mg Capsule 150 Mg PO DAILY Furosemide 20 Mg Tablet 20 Mg PO DAILY Alprazolam 0.25 Mg Tablet 0.25 Mg PO Oxycodone Hcl 5 Mg Tablet 5 Mg PO PRN Q4HRS PRN Ibuprofen 400 Mg Tablet 400 Mg PO PRN DAILY PRN Multivitamins (Multivitamin) 1 Each Tablet 1 Each PO DAILY Oxycodone-Acetaminophen 10-325 (Oxycodone Hcl/Acetaminophen) 1 Each Tablet 1 Each PO PRN Q4-6HRS PRN Plaquenil (Hydroxychloroquine Sulfate) 200 Mg Tablet 200 Mg PO BID Vitals/I & O Vital Sign - Last 24 Hours 12/12/16 12/12/16 12/12/16 12/12/16 11:00 11:13 12:00 12:00 Temp 98.6 98.6 Pulse 91 90 Resp 18 18 B/P (MAP) 139/73 (95) 118/65 (82) Pulse Ox 99 99 99 O2 Delivery Ventilator Ventilator Mechanical Ventilator Ventilator 12/12/16 12/12/16 12/12/16 12/12/16 12:17 13:00 13:57 14:00 Pulse 86 86 Resp 16 17 B/P (MAP) 119/66 (83) 134/67 (89) Pulse Ox 99 99 99 100 O2 Delivery Ventilator Ventilator Ventilator Ventilator 12/12/16 12/12/16 12/12/16 12/12/16 15:00 16:00 16:00 16:46 Pulse 89 87 Resp 17 21 B/P (MAP) 119/64 (82) 116/64 (81) Pulse Ox 100 99 100 O2 Delivery Ventilator Mechanical Ventilator Ventilator Ventilator 12/12/16 12/12/16 12/12/1622/17 17:00 18:00 19:00 19:33 Temp 98.4 98.4 Pulse 88 88 80 Resp 20 18 15 B/P (MAP) 133/71 (91) 120/65 (83) 143/77 (99) Pulse Ox 99 99 99 O2 Delivery Ventilator Ventilator Ventilator Mechanical Ventilator 12/12/16 12/12/16 12/12/16 12/12/16 19:53 20:00 21:00 22:00 Temp 98.6 98.6 Pulse 87 86 86 Resp 15 16 16 B/P (MAP) 134/64 (87) 119/57 (77) 124/63 (83) Pulse Ox 100 99 100 100 O2 Delivery Ventilator Ventilator Ventilator Ventilator 12/12/16 12/12/16 12/12/16 12/13/16 23:00 23:39 23:59 00:00 Temp 98.4 98.4 Pulse 83 86 Resp 16 16 B/P (MAP) 127/60 (82) 134/62 (86) Pulse Ox 100 100 100 O2 Delivery Ventilator Ventilator Mechanical Ventilator Ventilator 12/13/16 12/13/16 12/13/16 12/13/16 00:52 01:00 01:22 01:40 Pulse 82 Resp 16 16 16 B/P (MAP) 116/56 (76) Pulse Ox 100 98 99 100 O2 Delivery Ventilator Ventilator Ventilator Ventilator 12/13/16 12/13/16 12/13/16 12/13/16 02:00 03:00 03:45 03:46 Pulse 85 77 Resp 16 16 B/P (MAP) 123/60 (81) 121/62 (81) Pulse Ox 98 100 100 O2 Delivery Ventilator Ventilator Ventilator Mechanical Ventilator 12/13/16 12/13/16 12/13/16 12/13/16 04:00 05:00 05:42 06:00 Temp 97.7 97.7 Pulse 80 79 78 Resp 16 16 17 B/P (MAP) 115/59 (77) 115/59 (77) 116/59 (78) Pulse Ox 100 100 100 100 O2 Delivery Ventilator Ventilator Ventilator Ventilator 12/13/16 12/13/16 12/13/16 07:42 09:15 10:35 Temp 98.0 98.0 Pulse 79 Resp 16 B/P (MAP) 137/74 Pulse Ox 100 99 O2 Delivery Ventilator Ventilator Intake and Output 12/12/16 12/12/16 12/13/16 15:00 23:00 07:00 Intake Total 620 ml 1964.74 ml 1092 ml Output Total 300 ml 1429 ml 450 ml Balance 320 ml 535.74 ml 642 ml Nutrition Consultation Dietary Evaluation: Recommendations by RD: Increase Calorie Intake Comments: Contiue the TF's with Diabetisource AC, goal rate 60 ml/hr start at 20 ml/hr, increase by 20 ml/hr q8h to goal flushes 225 cc q6h Expected Outcomes/Goals: tolerate the TF's at goal rate- goal met meet 75% estimated nutrition needs- goal met Malnutrition Findings: Reduced Physiotherapy Assistant Strength: N/A Reduced Physiotherapy Assistant Strength (Non-Sev: N/A Malnutrition related to morbid: No Weight Status: Obese ELLE CLARK MD Dec 13, 2016 10:50
[2016-12-13] MEDS ORDERED: FUROSEMIDE 20 MG/2 ML VIAL. IVP ONE (11:15)
[2016-12-13] MEDS: rOPINIRole 0.25 MG TABLET. PO SCH (21:00)
[2016-12-13] MEDS: AMINO AC 3%/ELECTROLYTE/GLYCER 1,000 ML IV SCH (21:17)
[2016-12-14] VITALS (23 sets, daily range): BP systolic 149–179; BP diastolic 80–100
[2016-12-14] MEDS: hydrALAZINE 20 MG/ML VIAL. IVP PRN ×3 (04:39→23:33)
[2016-12-14 04:51] LABS: BASO % 0 % (0-3); EOS % 0 % (0-3); HEMATOCRIT 26.7 % (36.0-47.0); HEMOGLOBIN 8.9 g/dL (12.0-15.5); LYMPH # 0.4 x10^3/uL (1.0-4.8); LYMPH % 6 % (24-48); MEAN CORPUSCULAR HEMOGLOBIN 30 pg (25-35); MEAN CORPUSCULAR HGB CONC 34 g/dL (31-37); MEAN CORPUSCULAR VOLUME 90 fL (79-100); MONO % 3 % (0-9); NEUT % 91 % (31-73); PLATELET COUNT 42 x10^3/uL (140-400); RED BLOOD COUNT 2.97 x10^6/uL (3.50-5.40); WHITE BLOOD COUNT 7.3 x10^3/uL (4.0-11.0)
[2016-12-14] MEDS: fentaNYL PF VIAL 100 MCG/2 ML VIAL IV PRN ×3 (04:52→21:27)
[2016-12-14 05:19] LABS: CALCIUM 8.8 mg/dL (8.5-10.1); GFR 69.7; POTASSIUM 4.2 mmol/L (3.5-5.1)
[2016-12-14] MEDS: INSULIN ASPART 300 UNITS/3 ML INSULN.PEN SQ SCH ×5 (06:00→23:33)
[2016-12-14] MEDS: IPRATRPIUM/ALBUTEROL 0.5/2.5MG 3 ML NEBU. NEB SCH ×4 (08:07→19:24)
[2016-12-14] MEDS: PREGABALIN 75 MG CAPSULE PO SCH (08:22)
[2016-12-14] MEDS: buPROPion 100 MG TABLET PO SCH ×2 (08:22→19:58)
[2016-12-14] MEDS: ALPRAZolam 0.25 MG TABLET PO SCH (08:23)
--- NOTE | 2016-12-14 08:27 | PDOC ---
Infectious Disease Note Subjective Subjective Extubated "Thirsty, throat dry" + cough with phlegm production Denies work of breathing, SOA or chest discomfort PPN + BM ROS ROS GEN: Denies fevers, chills, sweats GI: Denies n/v Vital Sign Vital Signs Vital Signs Date Time Temp Pulse Resp B/P (MAP) Pulse Ox O2 Delivery O2 Flow Rate FiO2 12/14/16 08:09 98 Nasal Cannula 2.0 12/14/16 06:00 108 24 170/92 (118) 12/14/16 05:00 99.5 99.5 Physical Exam PHYSICAL EXAM GENERAL: Propped up in bed, relaxed appearance, joking, NAD HEENT: OC/OP dry NECK: Supple LUNGS: Clear anteriorly, nonlabored HEART: S1S2, no gallop, no murmur ABD: Soft, NT, BS active : [employer]: Alert, oriented x 3, no focal neurologic deficit EXT: Generalized edema. SKIN: + purpura BLE. L>R. stable Port-a-cath. clean Labs Lab Laboratory Tests Test 12/13/16 10:00 12/13/16 12:57 12/13/16 17:30 12/13/16 17:44 O2 Saturation 99 % (92-99) Arterial Blood pH 7.40 (7.35-7.45) Arterial Blood pCO2 at Patient Temp 33 mmHg (35-46) Arterial Blood pO2 at Patient Temp 440 mmHg (75-108) Arterial Blood HCO3 20 mmol/L (21-28) Arterial Blood Base Excess -4 mmol/L (-3-3) FiO2 35.0 Glucose (Fingerstick) 135 mg/dL (70-99) 137 mg/dL (70-99) Vancomycin Level Trough 48.8 mcg/mL (10.0-20.0) Vancomycin Last Dose Date 12/13/16 Vancomycin Last Dose Time 0600 Test 12/13/16 23:34 12/14/16 04:00 Glucose (Fingerstick) 115 mg/dL (70-99) White Blood Count 7.3 x10^3/uL (4.0-11.0) Red Blood Count 2.97 x10^6/uL (3.50-5.40) Hemoglobin 8.9 g/dL (12.0-15.5) Hematocrit 26.7 % (36.0-47.0) Mean Corpuscular Volume 90 fL (79-100) Mean Corpuscular Hemoglobin 30 pg (25-35) Mean Corpuscular Hemoglobin Concent 34 g/dL (31-37) Red Cell Distribution Width 15.0 % (11.5-14.5) Platelet Count 42 x10^3/uL (140-400) Neutrophils (%) (Auto) 91 % (31-73) Lymphocytes (%) (Auto) 6 % (24-48) Monocytes (%) (Auto) 3 % (0-9) Eosinophils (%) (Auto) 0 % (0-3) Basophils (%) (Auto) 0 % (0-3) Neutrophils # (Auto) 6.7 x10^3uL (1.8-7.7) Lymphocytes # (Auto) 0.4 x10^3/uL (1.0-4.8) Monocytes # (Auto) 0.2 x10^3/uL (0.0-1.1) Eosinophils # (Auto) 0.0 x10^3/uL (0.0-0.7) Basophils # (Auto) 0.0 x10^3/uL (0.0-0.2) Sodium Level 146 mmol/L (136-145) Potassium Level 4.2 mmol/L (3.5-5.1) Chloride Level 113 mmol/L (98-107) Carbon Dioxide Level 24 mmol/L (21-32) Anion Gap 9 (6-14) Blood Urea Nitrogen 59 mg/dL (7-20) Creatinine 1.0 mg/dL (0.6-1.0) Estimated GFR (Cockcroft-Gault) 69.7 Glucose Level 165 mg/dL (70-99) Calcium Level 8.8 mg/dL (8.5-10.1) Micro 12/10. BLOOD CULTURE Preliminary GRAM POSITIVE COCCI IN CLUSTERS, SUGGESTIVE OF STAPH, IN 1 OF 2 BOTTLES, ONE SET DRAWN. Objective Assessment Sepsis. POA with MRSA bacteremia. 12/06 with repeat 12/10 likely positive -TTE neg. repeat BC positive, 12/10 MRSA pneumonia, POA Hypotension, now off pressor Pancytopenia/anemia PCN allergy, reaction unknown Acute encephalopathy- improved LEONARDO Acute respiratory failure h/o breast cancer, s/p chemo. Port still in place Lupus on Plaquenil Recent E. coli UTI MRSA nares, 11/25, 12/06 Diarrhea. C. diff. neg 12/06 Plan Plan of Care cont Vanc - held last pm with elevated level and repeated random this am Monitor WBC, Cr and temp. May need to change off Vanc Repeat BC today 12/14 CHARLI pending Port removal considered - will likely need removal GPC ID - staph aureus Attending Co-Sign Attending Co-Sign The patient was seen and interviewed as well as examined at the bedside. The chart was reviewed. The case was discussed. Agree with the plan of care. YOCASTA RODRÍGUEZ APRN Dec 14, 2016 08:27 KEITH DAIGLE MD Dec 14, 2016 12:19
[2016-12-14] MEDS: HYDROCORTISONE SOD SUCC/PF 100 MG/2 ML VIAL. IV SCH (08:53)
[2016-12-14] MEDS: PANTOPRAZOLE IV PUSH 40 MG VIAL. IVP SCH (08:54)
[2016-12-14] MEDS ORDERED: VANCOMYCIN RANDOM LEVEL. MC ONE (09:00)
[2016-12-14] MEDS: VANCOMYCIN PER PHARMACY MC PRN (10:22)
--- NOTE | 2016-12-14 11:23 | PDOC ---
PROGRESS NOTES Chief Complaint Chief Complaint 1. Severe sepsis with Shock, s/p pressors 2. MRSA bacteremia, + nares 2. Pancytopenia: background of sepsis 3. Acute respiratory failure RE intubation 12/11 - extubated 12/13 4. Malnutrition: MOderate - to severe 5. Lupus, immuno suppressive 6. Recently treated urinary tract infection, Escherichia coli. 7. Hyponatremia.:resolved 8. Mild hyperkalemia:resolved. \ 9. 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 The left atrium is mildly dilated. The right atrium size is normal. The aortic valve is calcified but opens well. Doppler and Color-flow revealed mild mitral regurgitation. The mitral valve is normal in structure Mitral annular calcification is mild. Doppler and Color Flow revealed mild tricuspid regurgitation. There is mild pulmonary hypertension. The PA pressure was estimated at 34 mmHg. Doppler and Color Flow revealed trace pulmonic valvular regurgitation. There is a trace of pericardial effusion. Vitals Vitals Vital Signs Date Time Temp Pulse Resp B/P (MAP) Pulse Ox O2 Delivery O2 Flow Rate FiO2 12/14/16 08:09 98 Nasal Cannula 2.0 12/14/16 06:00 108 24 170/92 (118) 12/14/16 05:00 99.5 99.5 Physical Exam General: Alert, Oriented X3 Heart: Normal S1, Normal S2 Lungs: Clear, Wheezing, Other (poor airlfolow) Abdomen: Normal bowel sounds, Soft Extremities: No clubbing Skin: Other Labs LABS Laboratory Tests Test 12/13/16 12:57 12/13/16 17:30 12/13/16 17:44 12/13/16 23:34 Glucose (Fingerstick) 135 mg/dL (70-99) 137 mg/dL (70-99) 115 mg/dL (70-99) Vancomycin Level Trough 48.8 mcg/mL (10.0-20.0) Vancomycin Last Dose Date 12/13/16 Vancomycin Last Dose Time 0600 Test 12/14/16 04:00 12/14/16 09:05 White Blood Count 7.3 x10^3/uL (4.0-11.0) Red Blood Count 2.97 x10^6/uL (3.50-5.40) Hemoglobin 8.9 g/dL (12.0-15.5) Hematocrit 26.7 % (36.0-47.0) Mean Corpuscular Volume 90 fL (79-100) Mean Corpuscular Hemoglobin 30 pg (25-35) Mean Corpuscular Hemoglobin Concent 34 g/dL (31-37) Red Cell Distribution Width 15.0 % (11.5-14.5) Platelet Count 42 x10^3/uL (140-400) Neutrophils (%) (Auto) 91 % (31-73) Lymphocytes (%) (Auto) 6 % (24-48) Monocytes (%) (Auto) 3 % (0-9) Eosinophils (%) (Auto) 0 % (0-3) Basophils (%) (Auto) 0 % (0-3) Neutrophils # (Auto) 6.7 x10^3uL (1.8-7.7) Lymphocytes # (Auto) 0.4 x10^3/uL (1.0-4.8) Monocytes # (Auto) 0.2 x10^3/uL (0.0-1.1) Eosinophils # (Auto) 0.0 x10^3/uL (0.0-0.7) Basophils # (Auto) 0.0 x10^3/uL (0.0-0.2) Sodium Level 146 mmol/L (136-145) Potassium Level 4.2 mmol/L (3.5-5.1) Chloride Level 113 mmol/L (98-107) Carbon Dioxide Level 24 mmol/L (21-32) Anion Gap 9 (6-14) Blood Urea Nitrogen 59 mg/dL (7-20) Creatinine 1.0 mg/dL (0.6-1.0) Estimated GFR (Cockcroft-Gault) 69.7 Glucose Level 165 mg/dL (70-99) Calcium Level 8.8 mg/dL (8.5-10.1) Random Vancomycin Level 36.6 mcg/mL Review of Systems Review of Systems too weak to participate Assessment and Plan Assessmemt and Plan Problems Medical Problems: (1) Respiratory failure Status: Acute Problems: Comment Review of Relevant I have reviewed the following items anselmo (where applicable) has been applied. Labs Laboratory Tests Test 12/12/16 18:07 12/12/16 23:28 12/13/16 04:30 12/13/16 06:19 Glucose (Fingerstick) 156 mg/dL (70-99) 162 mg/dL (70-99) 187 mg/dL (70-99) White Blood Count 3.2 x10^3/uL (4.0-11.0) Red Blood Count 2.28 x10^6/uL (3.50-5.40) Hemoglobin 6.8 g/dL (12.0-15.5) Hematocrit 20.4 % (36.0-47.0) Mean Corpuscular Volume 90 fL (79-100) Mean Corpuscular Hemoglobin 30 pg (25-35) Mean Corpuscular Hemoglobin Concent 34 g/dL (31-37) Red Cell Distribution Width 14.8 % (11.5-14.5) Platelet Count 30 x10^3/uL (140-400) Neutrophils (%) (Auto) 82 % (31-73) Lymphocytes (%) (Auto) 14 % (24-48) Monocytes (%) (Auto) 4 % (0-9) Eosinophils (%) (Auto) 0 % (0-3) Basophils (%) (Auto) 0 % (0-3) Neutrophils # (Auto) 2.6 x10^3uL (1.8-7.7) Lymphocytes # (Auto) 0.5 x10^3/uL (1.0-4.8) Monocytes # (Auto) 0.1 x10^3/uL (0.0-1.1) Eosinophils # (Auto) 0.0 x10^3/uL (0.0-0.7) Basophils # (Auto) 0.0 x10^3/uL (0.0-0.2) Sodium Level 147 mmol/L (136-145) Potassium Level 4.6 mmol/L (3.5-5.1) Chloride Level 115 mmol/L (98-107) Carbon Dioxide Level 23 mmol/L (21-32) Anion Gap 9 (6-14) Blood Urea Nitrogen 63 mg/dL (7-20) Creatinine 1.0 mg/dL (0.6-1.0) Estimated GFR (Cockcroft-Gault) 69.7 Glucose Level 183 mg/dL (70-99) Calcium Level 8.0 mg/dL (8.5-10.1) Test 12/13/16 07:45 12/13/16 10:00 12/13/16 12:57 12/13/16 17:30 O2 Saturation 98 % (92-99) 99 % (92-99) Arterial Blood pH 7.42 (7.35-7.45) 7.40 (7.35-7.45) Arterial Blood pCO2 at Patient Temp 30 mmHg (35-46) 33 mmHg (35-46) Arterial Blood pO2 at Patient Temp 149 mmHg (75-108) 440 mmHg (75-108) Arterial Blood HCO3 19 mmol/L (21-28) 20 mmol/L (21-28) Arterial Blood Base Excess -5 mmol/L (-3-3) -4 mmol/L (-3-3) FiO2 40 35.0 Glucose (Fingerstick) 135 mg/dL (70-99) Vancomycin Level Trough 48.8 mcg/mL (10.0-20.0) Vancomycin Last Dose Date 12/13/16 Vancomycin Last Dose Time 0600 Test 12/13/16 17:44 12/13/16 23:34 12/14/16 04:00 12/14/16 09:05 Glucose (Fingerstick) 137 mg/dL (70-99) 115 mg/dL (70-99) White Blood Count 7.3 x10^3/uL (4.0-11.0) Red Blood Count 2.97 x10^6/uL (3.50-5.40) Hemoglobin 8.9 g/dL (12.0-15.5) Hematocrit 26.7 % (36.0-47.0) Mean Corpuscular Volume 90 fL (79-100) Mean Corpuscular Hemoglobin 30 pg (25-35) Mean Corpuscular Hemoglobin Concent 34 g/dL (31-37) Red Cell Distribution Width 15.0 % (11.5-14.5) Platelet Count 42 x10^3/uL (140-400) Neutrophils (%) (Auto) 91 % (31-73) Lymphocytes (%) (Auto) 6 % (24-48) Monocytes (%) (Auto) 3 % (0-9) Eosinophils (%) (Auto) 0 % (0-3) Basophils (%) (Auto) 0 % (0-3) Neutrophils # (Auto) 6.7 x10^3uL (1.8-7.7) Lymphocytes # (Auto) 0.4 x10^3/uL (1.0-4.8) Monocytes # (Auto) 0.2 x10^3/uL (0.0-1.1) Eosinophils # (Auto) 0.0 x10^3/uL (0.0-0.7) Basophils # (Auto) 0.0 x10^3/uL (0.0-0.2) Sodium Level 146 mmol/L (136-145) Potassium Level 4.2 mmol/L (3.5-5.1) Chloride Level 113 mmol/L (98-107) Carbon Dioxide Level 24 mmol/L (21-32) Anion Gap 9 (6-14) Blood Urea Nitrogen 59 mg/dL (7-20) Creatinine 1.0 mg/dL (0.6-1.0) Estimated GFR (Cockcroft-Gault) 69.7 Glucose Level 165 mg/dL (70-99) Calcium Level 8.8 mg/dL (8.5-10.1) Random Vancomycin Level 36.6 mcg/mL Laboratory Tests Test 12/13/16 12:57 12/13/16 17:30 12/13/16 17:44 12/13/16 23:34 Glucose (Fingerstick) 135 mg/dL (70-99) 137 mg/dL (70-99) 115 mg/dL (70-99) Vancomycin Level Trough 48.8 mcg/mL (10.0-20.0) Vancomycin Last Dose Date 12/13/16 Vancomycin Last Dose Time 0600 Test 12/14/16 04:00 12/14/16 09:05 White Blood Count 7.3 x10^3/uL (4.0-11.0) Red Blood Count 2.97 x10^6/uL (3.50-5.40) Hemoglobin 8.9 g/dL (12.0-15.5) Hematocrit 26.7 % (36.0-47.0) Mean Corpuscular Volume 90 fL (79-100) Mean Corpuscular Hemoglobin 30 pg (25-35) Mean Corpuscular Hemoglobin Concent 34 g/dL (31-37) Red Cell Distribution Width 15.0 % (11.5-14.5) Platelet Count 42 x10^3/uL (140-400) Neutrophils (%) (Auto) 91 % (31-73) Lymphocytes (%) (Auto) 6 % (24-48) Monocytes (%) (Auto) 3 % (0-9) Eosinophils (%) (Auto) 0 % (0-3) Basophils (%) (Auto) 0 % (0-3) Neutrophils # (Auto) 6.7 x10^3uL (1.8-7.7) Lymphocytes # (Auto) 0.4 x10^3/uL (1.0-4.8) Monocytes # (Auto) 0.2 x10^3/uL (0.0-1.1) Eosinophils # (Auto) 0.0 x10^3/uL (0.0-0.7) Basophils # (Auto) 0.0 x10^3/uL (0.0-0.2) Sodium Level 146 mmol/L (136-145) Potassium Level 4.2 mmol/L (3.5-5.1) Chloride Level 113 mmol/L (98-107) Carbon Dioxide Level 24 mmol/L (21-32) Anion Gap 9 (6-14) Blood Urea Nitrogen 59 mg/dL (7-20) Creatinine 1.0 mg/dL (0.6-1.0) Estimated GFR (Cockcroft-Gault) 69.7 Glucose Level 165 mg/dL (70-99) Calcium Level 8.8 mg/dL (8.5-10.1) Random Vancomycin Level 36.6 mcg/mL Microbiology 12/10/16 Blood Culture - Preliminary, Resulted 12/10/16 Blood Culture Result 1 (LUCINA) - Preliminary, Resulted 12/09/16 Stool Culture - Final, Complete 12/09/16 Stool Culture Result 1 (LUCINA) - Final, Complete 12/09/16 Campylobacter Antigen Assay - Final, Complete 12/09/16 Campylobactor Result 1 - Final, Complete 12/09/16 Shiga Toxin Test - Final, Complete 12/08/16 Sputum Culture - Final, Complete 12/08/16 Sputum Result 1 - Final, Complete 12/08/16 Antimicrobic Susceptibility - Final, Complete 12/06/16 Urine Culture - Final, Complete 12/06/16 Urine Culture Result 1 (LUCINA) - Final, Complete Medications Current Medications Sodium Chloride 1,000 ml @ 1,000 mls/hr 1X ONCE IV Last administered on 16:18; Start 12/06/16 at 16:15; Stop 12/06/16 at 17:14; Status DC Vancomycin HCl (Vanco Per Pharmacy) 1 each PRN DAILY PRN MC SEE COMMENTS Last administered on 12/14/16 10:22; Start 12/06/16 at 17:00 Levofloxacin/ Dextrose 150 ml @ 100 mls/hr 1X ONCE IV Last administered on 20:04; Start 12/06/16 at 17:00; Stop 12/06/16 at 18:29; Status DC Vancomycin HCl 2 gm/Sodium Chloride 500 ml @ 250 mls/hr 1X ONCE IV Last administered on 12/06/16 17:11; Start 12/06/16 at 17:00; Stop 12/06/16 at 18:59 ; Status DC Sodium Chloride 1,000 ml @ 1,000 mls/hr 1X ONCE IV Last administered on 17:09; Start 12/06/16 at 17:00; Stop 12/06/16 at 17:59; Status DC Meropenem 500 mg/ Sodium Chloride 50 ml @ 100 mls/hr Q8HRS IV Last administered on 12/10/16 07:30; Start 12/06/16 at 18:00; Stop 12/10/16 at 08:13 ; Status DC Dopamine HCl/ Dextrose 250 ml @ 16.414 mls/ hr 1X ONCE IV Last administered on 12/06/16 17:41; Start 12/06/16 at 17:15; Stop 12/07/16 at 08:28; Status DC Etomidate (Amidate) 20 mg 1X ONCE IV Last administered on 12/06/16 17:19; Start 12/06/16 at 17:15; Stop 12/06/16 at 17:17; Status DC Succinylcholine Chloride (Anectine) 100 mg 1X ONCE IV Last administered on 17:20; Start 12/06/16 at 17:15; Stop 12/06/16 at 17:17; Status DC Vancomycin HCl 1.25 gm/Sodium Chloride 250 ml @ 167 mls/hr Q24H IV Last administered on 12/07/16 18:39; Start 12/07/16 at 17:00; Stop 12/07/16 at 23:00 ; Status DC Vancomycin HCl 1 each 1X ONCE MC ; Start 12/07/16 at 16:30; Stop 12/07/16 at 16 :31; Status Cancel Midazolam HCl 100 ml @ As Directed STK-MED ONCE IV ; Start 12/06/16 at 17:36; Stop 12/06/16 at 17:37; Status DC Midazolam HCl (Versed) 5 mg STK-MED ONCE .ROUTE ; Start 12/06/16 at 17:37; Stop 12/06/16 at 17:38; Status DC Midazolam HCl (Versed) 5 mg PRN Q10MIN PRN IV SEDATION; Start 12/06/16 at 17:45 Hydrocortisone Sodium Succinate (Solu-CORTEF) 100 mg Q8HRS IV Last administered on 12/09/16 13:55; Start 12/06/16 at 18:30; Stop 12/09/16 at 16:21 ; Status DC Norepinephrine Bitartrate 16 mg/ Sodium Chloride 266 ml @ 0 mls/hr CONT PRN IV SEE I/O RECORD; Start 12/06/16 at 19:00; Status UNV Pantoprazole Sodium (Protonix Vial) 40 mg DAILYAC IVP Last administered on 12/14 08:54; Start 12/06/16 at 19:30 Acetaminophen (Tylenol) 325 mg PRN Q6HRS PRN PO MILD PAIN / TEMP; Start at 19:00 Hydralazine HCl (Apresoline) 10 mg PRN Q4HRS PRN IVP ELEVATED BP, SEE COMMENTS Last administered on 12/14/16 04:39; Start 12/06/16 at 19:00 Ondansetron HCl (Zofran) 4 mg PRN Q8HRS PRN IV NAUSEA/VOMITING; Start 12/06/16 at 19:00; Stop 12/12/16 at 08:31; Status DC Albuterol Sulfate (Ventolin Neb Soln) 2.5 mg PRN Q4HRS PRN NEB SHORTNESS OF BREATH; Start 12/06/16 at 19:00 Norepinephrine Bitartrate 250 ml @ 1.875 mls/ hr CONT PRN IV SEE I/O RECORD Last administered on 12/06/16 19:55; Start 12/06/16 at 19:00 Sodium Chloride 1,000 ml @ 1,000 mls/hr 1X ONCE IV Last administered on 19:56; Start 12/06/16 at 19:15; Stop 12/06/16 at 20:14; Status DC Sodium Chloride 1,000 ml @ 75 mls/hr [id number] IV Last administered on 21:55; Start 12/06/16 at 19:15; Stop 12/09/16 at 18:44; Status DC Pneumococcal Polyvalent Vaccine (Do NOT chart on this placeholder) 1 each PRN DAILY PRN MC PT UNABLE TO RESPOND; Start 12/07/16 at 09:30; Status Cancel Pneumococcal Polyvalent Vaccine (Pneumovax 23) 0.5 ml ONCE ONCE VAX IM ; Start 12/08/16 at 09:00; Stop 12/08/16 at 09:01; Status DC Albuterol/ Ipratropium (Duoneb) 3 ml RTQID NEB Last administered on 12/14/16 08:07; Start 12/07/16 at 12:00 Midazolam HCl 100 ml @ 0 mls/hr CONT PRN IV SEE I/O RECORD Last administered on 12/07/16 10:29; Start 12/07/16 at 10:15; Stop 12/13/16 at 20:41; Status DC Fentanyl Citrate (Fentanyl 2ml Vial) 25 mcg PRN Q1HR PRN IV PAIN Last administered on 12/14/16 08:53; Start 12/07/16 at 10:45 Pantoprazole Sodium (Protonix Vial) 40 mg DAILYAC IVP ; Start 12/07/16 at 17:00 ; Status Cancel Vancomycin HCl 1.25 gm/Sodium Chloride 250 ml @ 167 mls/hr Q12H IV Last administered on 12/13/16 18:25; Start 12/08/16 at 06:00; Stop 12/13/16 at 18:54 ; Status DC Vancomycin HCl 1 each 1X ONCE MC ; Start 12/08/16 at 17:30; Stop 12/08/16 at 17 :31; Status DC Vancomycin HCl 1 gm/Sodium Chloride 250 ml @ 250 mls/hr Q12H IV ; Start at 18:00; Status Cancel Chlorhexidine Gluconate (Peridex) 15 ml BID SWSP ; Start 12/09/16 at 21:00; Stop 12/10/16 at 07:23; Status DC Hydrocortisone Sodium Succinate (Solu-CORTEF) 100 mg Q12HR IV Last administered on 12/14/16 08:53; Start 12/09/16 at 21:00 Amino Acids/ Glycerin/ Electrolytes 1,000 ml @ 40 mls/hr Q24H IV Last administered on 12/09/16 17:56; Start 12/09/16 at 17:00; Stop 12/10/16 at 14:16 ; Status DC Alprazolam (Xanax) 0.25 mg DAILY PO Last administered on 12/13/16 09:45; Start 12/10/16 at 09:00 Bupropion HCl (Wellbutrin) 100 mg BID PO Last administered on 12/13/16 09:45; Start 12/09/16 at 21:00 Gabapentin (Neurontin) 300 mg BID PO ; Start 12/09/16 at 21:00; Status Cancel Ropinirole HCl (Requip) 0.25 mg QHS PO Last administered on 12/12/16 21:09; Start 12/09/16 at 21:00 Pregabalin (Lyrica) 150 mg DAILY PO Last administered on 12/13/16 09:45; Start 12/10/16 at 09:00 Epinephrine (S2 Racepinephrine) 0.5 ml 1X ONCE NEB Last administered on 07:45; Start 12/10/16 at 07:45; Stop 12/10/16 at 07:46; Status DC Lorazepam (Ativan) 2 mg 1X ONCE IV Last administered on 12/10/16 08:33; Start 12/10/16 at 08:00; Stop 12/10/16 at 08:01; Status DC Succinylcholine Chloride (Anectine) 200 mg STK-MED ONCE .ROUTE ; Start 12/10/16 at 10:28; Stop 12/10/16 at 10:29; Status DC Propofol 100 ml @ As Directed STK-MED ONCE IV ; Start 12/10/16 at 10:28; Stop 12/10/16 at 10:29; Status DC Calcium Gluconate (Calcium Gluconate) 1,000 mg 1X ONCE IVP Last administered on 12/10/16 11:41; Start 12/10/16 at 11:30; Stop 12/10/16 at 11:31; Status DC Succinylcholine Chloride (Anectine) 200 mg 1X ONCE IV Last administered on 11:41; Start 12/10/16 at 11:30; Stop 12/10/16 at 11:31; Status DC Propofol 100 ml @ 0 mls/hr CONT PRN IV SEE I/O RECORD Last administered on 12/13 00:57; Start 12/10/16 at 11:30; Stop 12/13/16 at 20:41; Status DC Insulin Aspart (NovoLOG) 0-5 UNITS TIDWMEALS SQ ; Start 12/11/16 at 08:00; Stop 12/11/16 at 08:00; Status DC Dextrose (Dextrose 50%-Water Syringe) 12.5 gm PRN Q15MIN PRN IV SEE COMMENTS; Start 12/10/16 at 20:30 Insulin Aspart (NovoLOG) 0-5 UNITS Q6HRS SQ Last administered on 12/13/16 06: 25; Start 12/11/16 at 00:00 Chlorhexidine Gluconate (Peridex) 15 ml BID MM Last administered on 12/13/16 09:46; Start 12/11/16 at 21:00; Stop 12/13/16 at 20:41; Status DC Fentanyl Citrate (Fentanyl 2ml Vial) 25 mcg PRN Q5MIN PRN IV MILD PAIN; Start 12/12/16 at 07:00; Stop 12/13/16 at 06:59; Status DC Fentanyl Citrate (Fentanyl 2ml Vial) 50 mcg PRN Q5MIN PRN IV MODERATE PAIN; Start 12/12/16 at 07:00; Stop 12/13/16 at 06:59; Status DC Morphine Sulfate 1 mg PRN Q10MIN PRN IV SEVERE PAIN; Start 12/12/16 at 07:00; Stop 12/13/16 at 06:59; Status DC Ringer's Solution 1,000 ml @ 30 mls/hr Q24H IV ; Start 12/12/16 at 07:00; Stop 12/12/16 at 18:59; Status DC Lidocaine HCl 2 ml PRN 1X PRN ID PRIOR TO IV START; Start 12/12/16 at 07:00; Stop 12/13/16 at 06:59; Status DC Hydromorphone HCl (Dilaudid) 0.5 mg PRN Q10MIN PRN IV SEV PAIN, Second choice; Start 12/12/16 at 07:00; Stop 12/13/16 at 06:59; Status DC Prochlorperazine Edisylate (Compazine) 5 mg PACU PRN PRN IV NAUSEA, MRX1; Start 12/12/16 at 07:00; Stop 12/13/16 at 06:59; Status DC Lidocaine HCl (Lidocaine Pf 2% Vial) 5 ml STK-MED ONCE .ROUTE ; Start 12/12/16 at 08:15; Stop 12/12/16 at 08:16; Status DC Propofol 0 ml @ As Directed STK-MED ONCE IV ; Start 12/12/16 at 08:15; Stop at 08:16; Status DC Ondansetron HCl (Zofran) 4 mg PRN Q6HRS PRN IV NAUSEA/VOMITING Last administered on 12/14/16 01:41; Start 12/12/16 at 19:00 Acetaminophen (Tylenol) 650 mg PRN Q6HRS PRN PEG MILD PAIN / TEMP; Start at 08:30 Vancomycin HCl 1 each 1X ONCE MC Last administered on 12/13/16 10:00; Start 12/13/16 at 10:00; Stop 12/13/16 at 10:01; Status DC Furosemide (Lasix) 40 mg 1X ONCE IVP Last administered on 12/13/16 11:31; Start 12/13/16 at 11:15; Stop 12/13/16 at 11:16; Status DC Amino Acids/ Glycerin/ Electrolytes 1,000 ml @ 75 mls/hr [id number] IV Last administered on 12/13/16 21:17; Start 12/13/16 at 21:00 Vancomycin HCl 1 each 1X ONCE MC Last administered on 12/14/16 09:00; Start 12/14/16 at 09:00; Stop 12/14/16 at 09:01; Status DC Vancomycin HCl 1 each 1X ONCE MC ; Start 12/15/16 at 06:00; Stop 12/15/16 at 06 :01; Status Cancel Active Scripts Active Oxycodone Hcl 5 Mg Tablet 5 Mg PO PRN Q6HRS PRN Reported Albuterol Sulfate Neb Soln (Albuterol Sulfate) 1.25 Mg/3 Ml Vial.neb 1 Vial NEB Q6HRS Ranitidine Hcl 150 Mg Capsule 75 Mg PO DAILY Ondansetron Hcl 8 Mg Tablet 8 Mg PO DAILY Azithromycin Tablet (Azithromycin) 250 Mg Tablet 250 Mg PO DAILY Bupropion Hcl 100 Mg Tablet 100 Mg PO BID Nasal Allergy Kendalia (Cromolyn Sodium) 13 Ml Kendalia.pump 13 Ml NS DAILY Gabapentin 300 Mg Capsule 300 Mg PO BID Hydroxyzine Hcl 25 Mg Tablet 25 Mg PO DAILY Nystatin 15 Gm Cream..g. 15 Gm TP BID Duloxetine Hcl 60 Mg Capsule.dr 60 Mg PO DAILY Clonidine Hcl 0.1 Mg Tablet 0.1 Mg PO DAILY Lisinopril 20 Mg Tablet 20 Mg PO DAILY Famciclovir 125 Mg Tablet 125 Mg PO DAILY Ropinirole Hcl 0.25 Mg Tablet 0.25 Mg PO DAILY Hydroxychloroquine Sulfate 200 Mg Tablet 200 Mg PO DAILY Lyrica (Pregabalin) 150 Mg Capsule 150 Mg PO DAILY Furosemide 20 Mg Tablet 20 Mg PO DAILY Alprazolam 0.25 Mg Tablet 0.25 Mg PO Oxycodone Hcl 5 Mg Tablet 5 Mg PO PRN Q4HRS PRN Ibuprofen 400 Mg Tablet 400 Mg PO PRN DAILY PRN Multivitamins (Multivitamin) 1 Each Tablet 1 Each PO DAILY Oxycodone-Acetaminophen 10-325 (Oxycodone Hcl/Acetaminophen) 1 Each Tablet 1 Each PO PRN Q4-6HRS PRN Plaquenil (Hydroxychloroquine Sulfate) 200 Mg Tablet 200 Mg PO BID Vitals/I & O Vital Sign - Last 24 Hours 12/13/16 12/13/16 12/13/16 12/13/16 11:35 12:00 12:00 12:05 Temp 98.7 98.3 98.4 98.7 98.3 98.4 Pulse 82 82 83 Resp 16 14 14 B/P (MAP) 141/87 152/81 (104) 149/79 Pulse Ox 98 O2 Delivery Mechanical Ventilator Ventilator 12/13/16 12/13/16 12/13/16 12/13/16 13:00 14:00 15:00 15:08 Pulse 84 92 92 Resp 15 15 13 B/P (MAP) 164/85 (111) 140/81 (100) 150/78 (102) Pulse Ox 99 99 100 99 O2 Delivery Ventilator Ventilator Ventilator Nasal Cannula O2 Flow Rate 3.0 12/13/16 12/13/16 12/13/16 12/13/16 16:00 16:00 17:00 18:00 Temp 97.9 97.9 Pulse 88 88 88 Resp 14 15 15 B/P (MAP) 145/82 (103) 155/85 (108) 164/90 (114) Pulse Ox 99 99 96 O2 Delivery Nasal Cannula Ventilator Ventilator Ventilator O2 Flow Rate 3.0 12/13/16 12/13/16 12/13/16 12/13/16 19:00 19:25 20:00 20:00 Temp 98.0 98.0 Pulse 90 90 Resp 20 20 B/P (MAP) 150/87 (108) 159/85 (109) Pulse Ox 97 98 97 O2 Delivery Nasal Cannula Nasal Cannula Nasal Cannula Nasal Cannula O2 Flow Rate 2.0 2.0 3.0 2.0 12/13/16 12/13/16 12/13/16 12/13/16 21:00 22:00 23:00 23:59 Pulse 90 87 93 Resp 18 18 18 B/P (MAP) 147/80 (102) 150/87 (108) 140/88 (105) Pulse Ox 97 98 99 O2 Delivery Nasal Cannula Nasal Cannula Nasal Cannula Nasal Cannula O2 Flow Rate 2.0 2.0 2.0 2.0 12/14/16 12/14/16 12/14/16 12/14/16 00:00 01:00 02:00 03:00 Temp 99.0 99.0 Pulse 100 100 99 96 Resp 18 18 18 18 B/P (MAP) 155/80 (105) 149/90 (109) 160/82 (108) 161/80 (107) Pulse Ox 98 97 96 97 O2 Delivery Nasal Cannula Nasal Cannula Nasal Cannula Nasal Cannula O2 Flow Rate 2.0 2.0 2.0 2.0 12/14/16 12/14/16 12/14/16 12/14/16 04:00 04:00 04:39 04:52 Pulse 95 101 Resp 18 22 B/P (MAP) 179/97 (124) 179/97 Pulse Ox 98 97 O2 Delivery Nasal Cannula Nasal Cannula Nasal Cannula O2 Flow Rate 2.0 2.0 2.0 12/14/16 12/14/16 12/14/16 12/14/16 05:00 05:22 06:00 08:09 Temp 99.5 99.5 Pulse 110 108 Resp 24 24 B/P (MAP) 173/88 (116) 170/92 (118) Pulse Ox 98 97 98 98 O2 Delivery Nasal Cannula Nasal Cannula Nasal Cannula Nasal Cannula O2 Flow Rate 2.0 2.0 2.0 2.0 Intake and Output 12/13/16 12/13/16 12/14/16 14:59 22:59 06:59 Intake Total 400 ml 568 ml Output Total 830 ml 610 ml 950 ml Balance -430 ml -610 ml -382 ml Nutrition Consultation Dietary Evaluation: Recommendations by RD: Increase Calorie Intake Comments: Contiue the TF's with Diabetisource AC, goal rate 60 ml/hr start at 20 ml/hr, increase by 20 ml/hr q8h to goal flushes 225 cc q6h Expected Outcomes/Goals: tolerate the TF's at goal rate- goal met meet 75% estimated nutrition needs- goal met Malnutrition Findings: Reduced Galley Stripper Strength: N/A Reduced Galley Stripper Strength (Non-Sev: N/A Malnutrition related to morbid: No Weight Status: Obese SHARIF REYNA MD Dec 14, 2016 11:23
[2016-12-14 11:25] LABS: PLT ESTIMATE DECREASED (ADEQUATE)
[2016-12-14 11:26] LABS: TOXIC GRANULATION PRESENT
[2016-12-14 11:27] LABS: ANISOCYTOSIS PRESENT
--- NOTE | 2016-12-14 12:28 | PDOC ---
PROGRESS NOTES Subjective Subjective c/c - f/u of Acute pancytopenia ROS - extubated Has cough Objective Objective Vital Signs Date Time Temp Pulse Resp B/P (MAP) Pulse Ox O2 Delivery O2 Flow Rate FiO2 12/14/16 12:00 Nasal Cannula 2.0 12/14/16 11:21 98 12/14/16 06:00 108 24 170/92 (118) 12/14/16 05:00 99.5 99.5 Intake and Output 12/14/16 07:00 Intake Total 968 ml Output Total 2310 ml Balance -1342 ml Intake Oral 100 ml IV Total 468 ml Tube Feeding 400 ml Output Urine Total 2310 ml # Bowel Movements 1 Physical Exam General: Alert, Oriented X3 Neck: No JVD Psych/Mental Status: Mental status NL Assessment Assessment Problems Medical Problems: (1) Respiratory failure Status: Acute ASSESSMENT AND PLAN: The patient is a 55-year-old female with the following medical problems: 1. Acute pancytopenia, likely related to her severe sepsis with methicillin-resistant Staphylococcus aureus bacteremia. Her CBC was normal in late 10/2016. I recommend continuing to treat the underlying infection as you are doing. Transfuse for hemoglobin less than 7, platelets less than 20. She has no evidence of bleeding at this time. 2. Left upper extremity swelling. Ultrasound negative for a DVT 3. 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 She has several risk features. Ultimately, she agreed to have a mastectomy, which was completed in 04/2015. Her tumor was ER/UT negative, HER2 positive. She completed adjuvant Adriamycin/Cytoxan in 06/2015 and Taxol/Herceptin. She completed 1 year of Herceptin in 07/2016. A CT scan in 07/2016 showed indeterminant hilar lymph nodes and pulmonary nodules and bone scan was negative for any metastases. 4. Anemia worse, Hb 8.9,s/p transfusion 5. Thrombocytopenia better at 42, monitor cbc.. Comment Review of Relevant I have reviewed the following items anselmo (where applicable) has been applied. Labs Laboratory Tests Test 12/12/16 18:07 12/12/16 23:28 12/13/16 04:30 12/13/16 06:19 Glucose (Fingerstick) 156 mg/dL (70-99) 162 mg/dL (70-99) 187 mg/dL (70-99) White Blood Count 3.2 x10^3/uL (4.0-11.0) Red Blood Count 2.28 x10^6/uL (3.50-5.40) Hemoglobin 6.8 g/dL (12.0-15.5) Hematocrit 20.4 % (36.0-47.0) Mean Corpuscular Volume 90 fL (79-100) Mean Corpuscular Hemoglobin 30 pg (25-35) Mean Corpuscular Hemoglobin Concent 34 g/dL (31-37) Red Cell Distribution Width 14.8 % (11.5-14.5) Platelet Count 30 x10^3/uL (140-400) Neutrophils (%) (Auto) 82 % (31-73) Lymphocytes (%) (Auto) 14 % (24-48) Monocytes (%) (Auto) 4 % (0-9) Eosinophils (%) (Auto) 0 % (0-3) Basophils (%) (Auto) 0 % (0-3) Neutrophils # (Auto) 2.6 x10^3uL (1.8-7.7) Lymphocytes # (Auto) 0.5 x10^3/uL (1.0-4.8) Monocytes # (Auto) 0.1 x10^3/uL (0.0-1.1) Eosinophils # (Auto) 0.0 x10^3/uL (0.0-0.7) Basophils # (Auto) 0.0 x10^3/uL (0.0-0.2) Sodium Level 147 mmol/L (136-145) Potassium Level 4.6 mmol/L (3.5-5.1) Chloride Level 115 mmol/L (98-107) Carbon Dioxide Level 23 mmol/L (21-32) Anion Gap 9 (6-14) Blood Urea Nitrogen 63 mg/dL (7-20) Creatinine 1.0 mg/dL (0.6-1.0) Estimated GFR (Cockcroft-Gault) 69.7 Glucose Level 183 mg/dL (70-99) Calcium Level 8.0 mg/dL (8.5-10.1) Test 12/13/16 07:45 12/13/16 10:00 12/13/16 12:57 12/13/16 17:30 O2 Saturation 98 % (92-99) 99 % (92-99) Arterial Blood pH 7.42 (7.35-7.45) 7.40 (7.35-7.45) Arterial Blood pCO2 at Patient Temp 30 mmHg (35-46) 33 mmHg (35-46) Arterial Blood pO2 at Patient Temp 149 mmHg (75-108) 440 mmHg (75-108) Arterial Blood HCO3 19 mmol/L (21-28) 20 mmol/L (21-28) Arterial Blood Base Excess -5 mmol/L (-3-3) -4 mmol/L (-3-3) FiO2 40 35.0 Glucose (Fingerstick) 135 mg/dL (70-99) Vancomycin Level Trough 48.8 mcg/mL (10.0-20.0) Vancomycin Last Dose Date 12/13/16 Vancomycin Last Dose Time 0600 Test 12/13/16 17:44 12/13/16 23:34 12/14/16 04:00 12/14/16 09:05 Glucose (Fingerstick) 137 mg/dL (70-99) 115 mg/dL (70-99) White Blood Count 7.3 x10^3/uL (4.0-11.0) Red Blood Count 2.97 x10^6/uL (3.50-5.40) Hemoglobin 8.9 g/dL (12.0-15.5) Hematocrit 26.7 % (36.0-47.0) Mean Corpuscular Volume 90 fL (79-100) Mean Corpuscular Hemoglobin 30 pg (25-35) Mean Corpuscular Hemoglobin Concent 34 g/dL (31-37) Red Cell Distribution Width 15.0 % (11.5-14.5) Platelet Count 42 x10^3/uL (140-400) Neutrophils (%) (Auto) 91 % (31-73) Lymphocytes (%) (Auto) 6 % (24-48) Monocytes (%) (Auto) 3 % (0-9) Eosinophils (%) (Auto) 0 % (0-3) Basophils (%) (Auto) 0 % (0-3) Neutrophils # (Auto) 6.7 x10^3uL (1.8-7.7) Lymphocytes # (Auto) 0.4 x10^3/uL (1.0-4.8) Monocytes # (Auto) 0.2 x10^3/uL (0.0-1.1) Eosinophils # (Auto) 0.0 x10^3/uL (0.0-0.7) Basophils # (Auto) 0.0 x10^3/uL (0.0-0.2) Segmented Neutrophils % 94 % (35-66) Band Neutrophils % 3 % (0-9) Lymphocytes % 1 % (24-48) Monocytes % 2 % (0-10) Toxic Granulation Present Dohle Bodies Present Platelet Estimate Decreased (ADEQUATE) Basophilic Stippling Present Anisocytosis Present Sodium Level 146 mmol/L (136-145) Potassium Level 4.2 mmol/L (3.5-5.1) Chloride Level 113 mmol/L (98-107) Carbon Dioxide Level 24 mmol/L (21-32) Anion Gap 9 (6-14) Blood Urea Nitrogen 59 mg/dL (7-20) Creatinine 1.0 mg/dL (0.6-1.0) Estimated GFR (Cockcroft-Gault) 69.7 Glucose Level 165 mg/dL (70-99) Calcium Level 8.8 mg/dL (8.5-10.1) Random Vancomycin Level 36.6 mcg/mL Laboratory Tests Test 12/13/16 12:57 12/13/16 17:30 12/13/16 17:44 12/13/16 23:34 Glucose (Fingerstick) 135 mg/dL (70-99) 137 mg/dL (70-99) 115 mg/dL (70-99) Vancomycin Level Trough 48.8 mcg/mL (10.0-20.0) Vancomycin Last Dose Date 12/13/16 Vancomycin Last Dose Time 0600 Test 12/14/16 04:00 12/14/16 09:05 White Blood Count 7.3 x10^3/uL (4.0-11.0) Red Blood Count 2.97 x10^6/uL (3.50-5.40) Hemoglobin 8.9 g/dL (12.0-15.5) Hematocrit 26.7 % (36.0-47.0) Mean Corpuscular Volume 90 fL (79-100) Mean Corpuscular Hemoglobin 30 pg (25-35) Mean Corpuscular Hemoglobin Concent 34 g/dL (31-37) Red Cell Distribution Width 15.0 % (11.5-14.5) Platelet Count 42 x10^3/uL (140-400) Neutrophils (%) (Auto) 91 % (31-73) Lymphocytes (%) (Auto) 6 % (24-48) Monocytes (%) (Auto) 3 % (0-9) Eosinophils (%) (Auto) 0 % (0-3) Basophils (%) (Auto) 0 % (0-3) Neutrophils # (Auto) 6.7 x10^3uL (1.8-7.7) Lymphocytes # (Auto) 0.4 x10^3/uL (1.0-4.8) Monocytes # (Auto) 0.2 x10^3/uL (0.0-1.1) Eosinophils # (Auto) 0.0 x10^3/uL (0.0-0.7) Basophils # (Auto) 0.0 x10^3/uL (0.0-0.2) Segmented Neutrophils % 94 % (35-66) Band Neutrophils % 3 % (0-9) Lymphocytes % 1 % (24-48) Monocytes % 2 % (0-10) Toxic Granulation Present Dohle Bodies Present Platelet Estimate Decreased (ADEQUATE) Basophilic Stippling Present Anisocytosis Present Sodium Level 146 mmol/L (136-145) Potassium Level 4.2 mmol/L (3.5-5.1) Chloride Level 113 mmol/L (98-107) Carbon Dioxide Level 24 mmol/L (21-32) Anion Gap 9 (6-14) Blood Urea Nitrogen 59 mg/dL (7-20) Creatinine 1.0 mg/dL (0.6-1.0) Estimated GFR (Cockcroft-Gault) 69.7 Glucose Level 165 mg/dL (70-99) Calcium Level 8.8 mg/dL (8.5-10.1) Random Vancomycin Level 36.6 mcg/mL Microbiology 12/10/16 Blood Culture - Preliminary, Resulted 12/10/16 Blood Culture Result 1 (LUCINA) - Preliminary, Resulted 12/09/16 Stool Culture - Final, Complete 12/09/16 Stool Culture Result 1 (LUCINA) - Final, Complete 12/09/16 Campylobacter Antigen Assay - Final, Complete 12/09/16 Campylobactor Result 1 - Final, Complete 12/09/16 Shiga Toxin Test - Final, Complete 12/08/16 Sputum Culture - Final, Complete 12/08/16 Sputum Result 1 - Final, Complete 12/08/16 Antimicrobic Susceptibility - Final, Complete 12/06/16 Urine Culture - Final, Complete 12/06/16 Urine Culture Result 1 (LUCINA) - Final, Complete Medications Current Medications Sodium Chloride 1,000 ml @ 1,000 mls/hr 1X ONCE IV Last administered on 16:18; Start 12/06/16 at 16:15; Stop 12/06/16 at 17:14; Status DC Vancomycin HCl (Vanco Per Pharmacy) 1 each PRN DAILY PRN MC SEE COMMENTS Last administered on 12/14/16 10:22; Start 12/06/16 at 17:00 Levofloxacin/ Dextrose 150 ml @ 100 mls/hr 1X ONCE IV Last administered on 20:04; Start 12/06/16 at 17:00; Stop 12/06/16 at 18:29; Status DC Vancomycin HCl 2 gm/Sodium Chloride 500 ml @ 250 mls/hr 1X ONCE IV Last administered on 12/06/16 17:11; Start 12/06/16 at 17:00; Stop 12/06/16 at 18:59 ; Status DC Sodium Chloride 1,000 ml @ 1,000 mls/hr 1X ONCE IV Last administered on 17:09; Start 12/06/16 at 17:00; Stop 12/06/16 at 17:59; Status DC Meropenem 500 mg/ Sodium Chloride 50 ml @ 100 mls/hr Q8HRS IV Last administered on 12/10/16 07:30; Start 12/06/16 at 18:00; Stop 12/10/16 at 08:13 ; Status DC Dopamine HCl/ Dextrose 250 ml @ 16.414 mls/ hr 1X ONCE IV Last administered on 12/06/16 17:41; Start 12/06/16 at 17:15; Stop 12/07/16 at 08:28; Status DC Etomidate (Amidate) 20 mg 1X ONCE IV Last administered on 12/06/16 17:19; Start 12/06/16 at 17:15; Stop 12/06/16 at 17:17; Status DC Succinylcholine Chloride (Anectine) 100 mg 1X ONCE IV Last administered on 17:20; Start 12/06/16 at 17:15; Stop 12/06/16 at 17:17; Status DC Vancomycin HCl 1.25 gm/Sodium Chloride 250 ml @ 167 mls/hr Q24H IV Last administered on 12/07/16 18:39; Start 12/07/16 at 17:00; Stop 12/07/16 at 23:00 ; Status DC Vancomycin HCl 1 each 1X ONCE MC ; Start 12/07/16 at 16:30; Stop 12/07/16 at 16 :31; Status Cancel Midazolam HCl 100 ml @ As Directed STK-MED ONCE IV ; Start 12/06/16 at 17:36; Stop 12/06/16 at 17:37; Status DC Midazolam HCl (Versed) 5 mg STK-MED ONCE .ROUTE ; Start 12/06/16 at 17:37; Stop 12/06/16 at 17:38; Status DC Midazolam HCl (Versed) 5 mg PRN Q10MIN PRN IV SEDATION; Start 12/06/16 at 17:45 Hydrocortisone Sodium Succinate (Solu-CORTEF) 100 mg Q8HRS IV Last administered on 12/09/16 13:55; Start 12/06/16 at 18:30; Stop 12/09/16 at 16:21 ; Status DC Norepinephrine Bitartrate 16 mg/ Sodium Chloride 266 ml @ 0 mls/hr CONT PRN IV SEE I/O RECORD; Start 12/06/16 at 19:00; Status UNV Pantoprazole Sodium (Protonix Vial) 40 mg DAILYAC IVP Last administered on 12/14 08:54; Start 12/06/16 at 19:30 Acetaminophen (Tylenol) 325 mg PRN Q6HRS PRN PO MILD PAIN / TEMP; Start at 19:00 Hydralazine HCl (Apresoline) 10 mg PRN Q4HRS PRN IVP ELEVATED BP, SEE COMMENTS Last administered on 12/14/16 04:39; Start 12/06/16 at 19:00 Ondansetron HCl (Zofran) 4 mg PRN Q8HRS PRN IV NAUSEA/VOMITING; Start 12/06/16 at 19:00; Stop 12/12/16 at 08:31; Status DC Albuterol Sulfate (Ventolin Neb Soln) 2.5 mg PRN Q4HRS PRN NEB SHORTNESS OF BREATH; Start 12/06/16 at 19:00 Norepinephrine Bitartrate 250 ml @ 1.875 mls/ hr CONT PRN IV SEE I/O RECORD Last administered on 12/06/16 19:55; Start 12/06/16 at 19:00 Sodium Chloride 1,000 ml @ 1,000 mls/hr 1X ONCE IV Last administered on 19:56; Start 12/06/16 at 19:15; Stop 12/06/16 at 20:14; Status DC Sodium Chloride 1,000 ml @ 75 mls/hr [id number] IV Last administered on 21:55; Start 12/06/16 at 19:15; Stop 12/09/16 at 18:44; Status DC Pneumococcal Polyvalent Vaccine (Do NOT chart on this placeholder) 1 each PRN DAILY PRN MC PT UNABLE TO RESPOND; Start 12/07/16 at 09:30; Status Cancel Pneumococcal Polyvalent Vaccine (Pneumovax 23) 0.5 ml ONCE ONCE VAX IM ; Start 12/08/16 at 09:00; Stop 12/08/16 at 09:01; Status DC Albuterol/ Ipratropium (Duoneb) 3 ml RTQID NEB Last administered on 12/14/16 11:21; Start 12/07/16 at 12:00 Midazolam HCl 100 ml @ 0 mls/hr CONT PRN IV SEE I/O RECORD Last administered on 12/07/16 10:29; Start 12/07/16 at 10:15; Stop 12/13/16 at 20:41; Status DC Fentanyl Citrate (Fentanyl 2ml Vial) 25 mcg PRN Q1HR PRN IV PAIN Last administered on 12/14/16 08:53; Start 12/07/16 at 10:45 Pantoprazole Sodium (Protonix Vial) 40 mg DAILYAC IVP ; Start 12/07/16 at 17:00 ; Status Cancel Vancomycin HCl 1.25 gm/Sodium Chloride 250 ml @ 167 mls/hr Q12H IV Last administered on 12/13/16 18:25; Start 12/08/16 at 06:00; Stop 12/13/16 at 18:54 ; Status DC Vancomycin HCl 1 each 1X ONCE MC ; Start 12/08/16 at 17:30; Stop 12/08/16 at 17 :31; Status DC Vancomycin HCl 1 gm/Sodium Chloride 250 ml @ 250 mls/hr Q12H IV ; Start at 18:00; Status Cancel Chlorhexidine Gluconate (Peridex) 15 ml BID SWSP ; Start 12/09/16 at 21:00; Stop 12/10/16 at 07:23; Status DC Hydrocortisone Sodium Succinate (Solu-CORTEF) 100 mg Q12HR IV Last administered on 12/14/16 08:53; Start 12/09/16 at 21:00 Amino Acids/ Glycerin/ Electrolytes 1,000 ml @ 40 mls/hr Q24H IV Last administered on 12/09/16 17:56; Start 12/09/16 at 17:00; Stop 12/10/16 at 14:16 ; Status DC Alprazolam (Xanax) 0.25 mg DAILY PO Last administered on 12/13/16 09:45; Start 12/10/16 at 09:00 Bupropion HCl (Wellbutrin) 100 mg BID PO Last administered on 12/13/16 09:45; Start 12/09/16 at 21:00 Gabapentin (Neurontin) 300 mg BID PO ; Start 12/09/16 at 21:00; Status Cancel Ropinirole HCl (Requip) 0.25 mg QHS PO Last administered on 12/12/16 21:09; Start 12/09/16 at 21:00 Pregabalin (Lyrica) 150 mg DAILY PO Last administered on 12/13/16 09:45; Start 12/10/16 at 09:00 Epinephrine (S2 Racepinephrine) 0.5 ml 1X ONCE NEB Last administered on 07:45; Start 12/10/16 at 07:45; Stop 12/10/16 at 07:46; Status DC Lorazepam (Ativan) 2 mg 1X ONCE IV Last administered on 12/10/16 08:33; Start 12/10/16 at 08:00; Stop 12/10/16 at 08:01; Status DC Succinylcholine Chloride (Anectine) 200 mg STK-MED ONCE .ROUTE ; Start 12/10/16 at 10:28; Stop 12/10/16 at 10:29; Status DC Propofol 100 ml @ As Directed STK-MED ONCE IV ; Start 12/10/16 at 10:28; Stop 12/10/16 at 10:29; Status DC Calcium Gluconate (Calcium Gluconate) 1,000 mg 1X ONCE IVP Last administered on 12/10/16 11:41; Start 12/10/16 at 11:30; Stop 12/10/16 at 11:31; Status DC Succinylcholine Chloride (Anectine) 200 mg 1X ONCE IV Last administered on 11:41; Start 12/10/16 at 11:30; Stop 12/10/16 at 11:31; Status DC Propofol 100 ml @ 0 mls/hr CONT PRN IV SEE I/O RECORD Last administered on 12/13 00:57; Start 12/10/16 at 11:30; Stop 12/13/16 at 20:41; Status DC Insulin Aspart (NovoLOG) 0-5 UNITS TIDWMEALS SQ ; Start 12/11/16 at 08:00; Stop 12/11/16 at 08:00; Status DC Dextrose (Dextrose 50%-Water Syringe) 12.5 gm PRN Q15MIN PRN IV SEE COMMENTS; Start 12/10/16 at 20:30 Insulin Aspart (NovoLOG) 0-5 UNITS Q6HRS SQ Last administered on 12/13/16 06: 25; Start 12/11/16 at 00:00 Chlorhexidine Gluconate (Peridex) 15 ml BID MM Last administered on 12/13/16 09:46; Start 12/11/16 at 21:00; Stop 12/13/16 at 20:41; Status DC Fentanyl Citrate (Fentanyl 2ml Vial) 25 mcg PRN Q5MIN PRN IV MILD PAIN; Start 12/12/16 at 07:00; Stop 12/13/16 at 06:59; Status DC Fentanyl Citrate (Fentanyl 2ml Vial) 50 mcg PRN Q5MIN PRN IV MODERATE PAIN; Start 12/12/16 at 07:00; Stop 12/13/16 at 06:59; Status DC Morphine Sulfate 1 mg PRN Q10MIN PRN IV SEVERE PAIN; Start 12/12/16 at 07:00; Stop 12/13/16 at 06:59; Status DC Ringer's Solution 1,000 ml @ 30 mls/hr Q24H IV ; Start 12/12/16 at 07:00; Stop 12/12/16 at 18:59; Status DC Lidocaine HCl 2 ml PRN 1X PRN ID PRIOR TO IV START; Start 12/12/16 at 07:00; Stop 12/13/16 at 06:59; Status DC Hydromorphone HCl (Dilaudid) 0.5 mg PRN Q10MIN PRN IV SEV PAIN, Second choice; Start 12/12/16 at 07:00; Stop 12/13/16 at 06:59; Status DC Prochlorperazine Edisylate (Compazine) 5 mg PACU PRN PRN IV NAUSEA, MRX1; Start 12/12/16 at 07:00; Stop 12/13/16 at 06:59; Status DC Lidocaine HCl (Lidocaine Pf 2% Vial) 5 ml STK-MED ONCE .ROUTE ; Start 12/12/16 at 08:15; Stop 12/12/16 at 08:16; Status DC Propofol 0 ml @ As Directed STK-MED ONCE IV ; Start 12/12/16 at 08:15; Stop at 08:16; Status DC Ondansetron HCl (Zofran) 4 mg PRN Q6HRS PRN IV NAUSEA/VOMITING Last administered on 12/14/16 01:41; Start 12/12/16 at 19:00 Acetaminophen (Tylenol) 650 mg PRN Q6HRS PRN PEG MILD PAIN / TEMP; Start at 08:30 Vancomycin HCl 1 each 1X ONCE MC Last administered on 12/13/16 10:00; Start 12/13/16 at 10:00; Stop 12/13/16 at 10:01; Status DC Furosemide (Lasix) 40 mg 1X ONCE IVP Last administered on 12/13/16 11:31; Start 12/13/16 at 11:15; Stop 12/13/16 at 11:16; Status DC Amino Acids/ Glycerin/ Electrolytes 1,000 ml @ 75 mls/hr [id number] IV Last administered on 12/13/16 21:17; Start 12/13/16 at 21:00 Vancomycin HCl 1 each 1X ONCE MC Last administered on 12/14/16t 09:00; Start 12/14/16 at 09:00; Stop 12/14/16 at 09:01; Status DC Vancomycin HCl 1 each 1X ONCE MC ; Start 12/15/16 at 06:00; Stop 12/15/16 at 06 :01; Status Cancel Active Scripts Active Oxycodone Hcl 5 Mg Tablet 5 Mg PO PRN Q6HRS PRN Reported Albuterol Sulfate Neb Soln (Albuterol Sulfate) 1.25 Mg/3 Ml Vial.neb 1 Vial NEB Q6HRS Ranitidine Hcl 150 Mg Capsule 75 Mg PO DAILY Ondansetron Hcl 8 Mg Tablet 8 Mg PO DAILY Azithromycin Tablet (Azithromycin) 250 Mg Tablet 250 Mg PO DAILY Bupropion Hcl 100 Mg Tablet 100 Mg PO BID Nasal Allergy Fontana (Cromolyn Sodium) 13 Ml Fontana.pump 13 Ml NS DAILY Gabapentin 300 Mg Capsule 300 Mg PO BID Hydroxyzine Hcl 25 Mg Tablet 25 Mg PO DAILY Nystatin 15 Gm Cream..g. 15 Gm TP BID Duloxetine Hcl 60 Mg Capsule.dr 60 Mg PO DAILY Clonidine Hcl 0.1 Mg Tablet 0.1 Mg PO DAILY Lisinopril 20 Mg Tablet 20 Mg PO DAILY Famciclovir 125 Mg Tablet 125 Mg PO DAILY Ropinirole Hcl 0.25 Mg Tablet 0.25 Mg PO DAILY Hydroxychloroquine Sulfate 200 Mg Tablet 200 Mg PO DAILY Lyrica (Pregabalin) 150 Mg Capsule 150 Mg PO DAILY Furosemide 20 Mg Tablet 20 Mg PO DAILY Alprazolam 0.25 Mg Tablet 0.25 Mg PO Oxycodone Hcl 5 Mg Tablet 5 Mg PO PRN Q4HRS PRN Ibuprofen 400 Mg Tablet 400 Mg PO PRN DAILY PRN Multivitamins (Multivitamin) 1 Each Tablet 1 Each PO DAILY Oxycodone-Acetaminophen 10-325 (Oxycodone Hcl/Acetaminophen) 1 Each Tablet 1 Each PO PRN Q4-6HRS PRN Plaquenil (Hydroxychloroquine Sulfate) 200 Mg Tablet 200 Mg PO BID Vitals/I & O Vital Sign - Last 24 Hours 12/13/16 12/13/16 12/13/16 12/13/16 13:00 14:00 15:00 15:08 Pulse 84 92 92 Resp 15 15 13 B/P (MAP) 164/85 (111) 140/81 (100) 150/78 (102) Pulse Ox 99 99 100 99 O2 Delivery Ventilator Ventilator Ventilator Nasal Cannula O2 Flow Rate 3.0 12/13/16 12/13/16 12/13/16 12/13/16 16:00 16:00 17:00 18:00 Temp 97.9 97.9 Pulse 88 88 88 Resp 14 15 15 B/P (MAP) 145/82 (103) 155/85 (108) 164/90 (114) Pulse Ox 99 99 96 O2 Delivery Nasal Cannula Ventilator Ventilator Ventilator O2 Flow Rate 3.0 12/13/16 12/13/16 12/13/16 12/13/16 19:00 19:25 20:00 20:00 Temp 98.0 98.0 Pulse 90 90 Resp 20 20 B/P (MAP) 150/87 (108) 159/85 (109) Pulse Ox 97 98 97 O2 Delivery Nasal Cannula Nasal Cannula Nasal Cannula Nasal Cannula O2 Flow Rate 2.0 2.0 3.0 2.0 12/13/16 12/13/16 12/13/16 12/13/16 21:00 22:00 23:00 23:59 Pulse 90 87 93 Resp 18 18 18 B/P (MAP) 147/80 (102) 150/87 (108) 140/88 (105) Pulse Ox 97 98 99 O2 Delivery Nasal Cannula Nasal Cannula Nasal Cannula Nasal Cannula O2 Flow Rate 2.0 2.0 2.0 2.0 12/14/16 12/14/16 12/14/16 12/14/16 00:00 01:00 02:00 03:00 Temp 99.0 99.0 Pulse 100 100 99 96 Resp 18 18 18 18 B/P (MAP) 155/80 (105) 149/90 (109) 160/82 (108) 161/80 (107) Pulse Ox 98 97 96 97 O2 Delivery Nasal Cannula Nasal Cannula Nasal Cannula Nasal Cannula O2 Flow Rate 2.0 2.0 2.0 2.0 12/14/16 12/14/16 12/14/16 12/14/16 04:00 04:00 04:39 04:52 Pulse 95 101 Resp 18 22 B/P (MAP) 179/97 (124) 179/97 Pulse Ox 98 97 O2 Delivery Nasal Cannula Nasal Cannula Nasal Cannula O2 Flow Rate 2.0 2.0 2.0 12/14/16 12/14/16 12/14/16 12/14/16 05:00 05:22 06:00 08:00 Temp 99.5 99.5 Pulse 110 108 Resp B/P (MAP) 173/88 (116) 170/92 (118) Pulse Ox 98 97 98 O2 Delivery Nasal Cannula Nasal Cannula Nasal Cannula Nasal Cannula O2 Flow Rate 2.0 2.0 2.0 2.0 12/14/16 12/14/16 12/14/16 08:09 11:21 12:00 Pulse Ox 98 98 O2 Delivery Nasal Cannula Nasal Cannula Nasal Cannula O2 Flow Rate 2.0 2.0 2.0 Intake and Output 12/13/16 12/13/16 12/14/16 15:00 23:00 07:00 Intake Total 400 ml 568 ml Output Total 900 ml 460 ml 950 ml Balance -500 ml -460 ml -382 ml Nutrition Consultation Dietary Evaluation: Recommendations by RD: Increase Calorie Intake Comments: Contiue the TF's with Diabetisource AC, goal rate 60 ml/hr start at 20 ml/hr, increase by 20 ml/hr q8h to goal flushes 225 cc q6h Expected Outcomes/Goals: tolerate the TF's at goal rate- goal met meet 75% estimated nutrition needs- goal met 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
[2016-12-14] MEDS: AMINO AC 3%/ELECTROLYTE/GLYCER 1,000 ML IV SCH (12:46)
[2016-12-14] MEDS ORDERED: ALTEPLASE 2 MG VIAL INT CAT ONE (14:30)
--- NOTE | 2016-12-14 16:51 | PDOC ---
PULMONARY PROGRESS NOTES Subjective FEELS BETTER EXTUBATED 12/13 Vitals Vital Signs Date Time Temp Pulse Resp B/P (MAP) Pulse Ox O2 Delivery O2 Flow Rate FiO2 12/14/16 16:23 98 Nasal Cannula 2.0 12/14/16 15:00 96 24 173/93 (119) 12/14/16 12:00 99.5 99.5 ROS: No Nausea, No Chest Pain, No Abdominal Pain, No Increase Cough HEENT: Other (nc at perrl, orally intubated, nose clear... neck no lap, no thyromegaly) Lungs: Clear, Wheezing Cardiovascular: S1, S2 Abdomen: Soft, Non-tender Neuro Exam: Alert Extremities: Other (edema) Skin: Warm Labs Laboratory Tests Test 12/12/16 18:07 12/12/16 23:28 12/13/16 04:30 12/13/16 06:19 Glucose (Fingerstick) 156 mg/dL (70-99) 162 mg/dL (70-99) 187 mg/dL (70-99) White Blood Count 3.2 x10^3/uL (4.0-11.0) Red Blood Count 2.28 x10^6/uL (3.50-5.40) Hemoglobin 6.8 g/dL (12.0-15.5) Hematocrit 20.4 % (36.0-47.0) Mean Corpuscular Volume 90 fL (79-100) Mean Corpuscular Hemoglobin 30 pg (25-35) Mean Corpuscular Hemoglobin Concent 34 g/dL (31-37) Red Cell Distribution Width 14.8 % (11.5-14.5) Platelet Count 30 x10^3/uL (140-400) Neutrophils (%) (Auto) 82 % (31-73) Lymphocytes (%) (Auto) 14 % (24-48) Monocytes (%) (Auto) 4 % (0-9) Eosinophils (%) (Auto) 0 % (0-3) Basophils (%) (Auto) 0 % (0-3) Neutrophils # (Auto) 2.6 x10^3uL (1.8-7.7) Lymphocytes # (Auto) 0.5 x10^3/uL (1.0-4.8) Monocytes # (Auto) 0.1 x10^3/uL (0.0-1.1) Eosinophils # (Auto) 0.0 x10^3/uL (0.0-0.7) Basophils # (Auto) 0.0 x10^3/uL (0.0-0.2) Sodium Level 147 mmol/L (136-145) Potassium Level 4.6 mmol/L (3.5-5.1) Chloride Level 115 mmol/L (98-107) Carbon Dioxide Level 23 mmol/L (21-32) Anion Gap 9 (6-14) Blood Urea Nitrogen 63 mg/dL (7-20) Creatinine 1.0 mg/dL (0.6-1.0) Estimated GFR (Cockcroft-Gault) 69.7 Glucose Level 183 mg/dL (70-99) Calcium Level 8.0 mg/dL (8.5-10.1) Test 12/13/16 07:45 12/13/16 10:00 12/13/16 12:57 12/13/16 17:30 O2 Saturation 98 % (92-99) 99 % (92-99) Arterial Blood pH 7.42 (7.35-7.45) 7.40 (7.35-7.45) Arterial Blood pCO2 at Patient Temp 30 mmHg (35-46) 33 mmHg (35-46) Arterial Blood pO2 at Patient Temp 149 mmHg (75-108) 440 mmHg (75-108) Arterial Blood HCO3 19 mmol/L (21-28) 20 mmol/L (21-28) Arterial Blood Base Excess -5 mmol/L (-3-3) -4 mmol/L (-3-3) FiO2 40 35.0 Glucose (Fingerstick) 135 mg/dL (70-99) Vancomycin Level Trough 48.8 mcg/mL (10.0-20.0) Vancomycin Last Dose Date 12/13/16 Vancomycin Last Dose Time 0600 Test 12/13/16 17:44 12/13/16 23:34 12/14/16 04:00 12/14/16 09:05 Glucose (Fingerstick) 137 mg/dL (70-99) 115 mg/dL (70-99) White Blood Count 7.3 x10^3/uL (4.0-11.0) Red Blood Count 2.97 x10^6/uL (3.50-5.40) Hemoglobin 8.9 g/dL (12.0-15.5) Hematocrit 26.7 % (36.0-47.0) Mean Corpuscular Volume 90 fL (79-100) Mean Corpuscular Hemoglobin 30 pg (25-35) Mean Corpuscular Hemoglobin Concent 34 g/dL (31-37) Red Cell Distribution Width 15.0 % (11.5-14.5) Platelet Count 42 x10^3/uL (140-400) Neutrophils (%) (Auto) 91 % (31-73) Lymphocytes (%) (Auto) 6 % (24-48) Monocytes (%) (Auto) 3 % (0-9) Eosinophils (%) (Auto) 0 % (0-3) Basophils (%) (Auto) 0 % (0-3) Neutrophils # (Auto) 6.7 x10^3uL (1.8-7.7) Lymphocytes # (Auto) 0.4 x10^3/uL (1.0-4.8) Monocytes # (Auto) 0.2 x10^3/uL (0.0-1.1) Eosinophils # (Auto) 0.0 x10^3/uL (0.0-0.7) Basophils # (Auto) 0.0 x10^3/uL (0.0-0.2) Segmented Neutrophils % 94 % (35-66) Band Neutrophils % 3 % (0-9) Lymphocytes % 1 % (24-48) Monocytes % 2 % (0-10) Toxic Granulation Present Dohle Bodies Present Platelet Estimate Decreased (ADEQUATE) Basophilic Stippling Present Anisocytosis Present Sodium Level 146 mmol/L (136-145) Potassium Level 4.2 mmol/L (3.5-5.1) Chloride Level 113 mmol/L (98-107) Carbon Dioxide Level 24 mmol/L (21-32) Anion Gap 9 (6-14) Blood Urea Nitrogen 59 mg/dL (7-20) Creatinine 1.0 mg/dL (0.6-1.0) Estimated GFR (Cockcroft-Gault) 69.7 Glucose Level 165 mg/dL (70-99) Calcium Level 8.8 mg/dL (8.5-10.1) Random Vancomycin Level 36.6 mcg/mL Test 12/14/16 14:56 Glucose (Fingerstick) 141 mg/dL (70-99) Laboratory Tests Test 12/13/16 17:30 12/13/16 17:44 12/13/16 23:34 12/14/16 04:00 Vancomycin Level Trough 48.8 mcg/mL (10.0-20.0) Vancomycin Last Dose Date 12/13/16 Vancomycin Last Dose Time 0600 Glucose (Fingerstick) 137 mg/dL (70-99) 115 mg/dL (70-99) White Blood Count 7.3 x10^3/uL (4.0-11.0) Red Blood Count 2.97 x10^6/uL (3.50-5.40) Hemoglobin 8.9 g/dL (12.0-15.5) Hematocrit 26.7 % (36.0-47.0) Mean Corpuscular Volume 90 fL (79-100) Mean Corpuscular Hemoglobin 30 pg (25-35) Mean Corpuscular Hemoglobin Concent 34 g/dL (31-37) Red Cell Distribution Width 15.0 % (11.5-14.5) Platelet Count 42 x10^3/uL (140-400) Neutrophils (%) (Auto) 91 % (31-73) Lymphocytes (%) (Auto) 6 % (24-48) Monocytes (%) (Auto) 3 % (0-9) Eosinophils (%) (Auto) 0 % (0-3) Basophils (%) (Auto) 0 % (0-3) Neutrophils # (Auto) 6.7 x10^3uL (1.8-7.7) Lymphocytes # (Auto) 0.4 x10^3/uL (1.0-4.8) Monocytes # (Auto) 0.2 x10^3/uL (0.0-1.1) Eosinophils # (Auto) 0.0 x10^3/uL (0.0-0.7) Basophils # (Auto) 0.0 x10^3/uL (0.0-0.2) Segmented Neutrophils % 94 % (35-66) Band Neutrophils % 3 % (0-9) Lymphocytes % 1 % (24-48) Monocytes % 2 % (0-10) Toxic Granulation Present Dohle Bodies Present Platelet Estimate Decreased (ADEQUATE) Basophilic Stippling Present Anisocytosis Present Sodium Level 146 mmol/L (136-145) Potassium Level 4.2 mmol/L (3.5-5.1) Chloride Level 113 mmol/L (98-107) Carbon Dioxide Level 24 mmol/L (21-32) Anion Gap 9 (6-14) Blood Urea Nitrogen 59 mg/dL (7-20) Creatinine 1.0 mg/dL (0.6-1.0) Estimated GFR (Cockcroft-Gault) 69.7 Glucose Level 165 mg/dL (70-99) Calcium Level 8.8 mg/dL (8.5-10.1) Test 12/14/16 09:05 12/14/16 14:56 Random Vancomycin Level 36.6 mcg/mL Glucose (Fingerstick) 141 mg/dL (70-99) Medications Active Scripts Medications Dose Route/Sig Max Daily Dose Days Date Category Oxycodone Hcl 5 Mg Tablet 5 Mg PO PRN Q6HRS PRN 11/28/16 Rx Albuterol Sulfate Neb Soln (Albuterol Sulfate) 1.25 Mg/3 Ml Vial.neb 1 Vial NEB Q6HRS 11/25/16 Reported Ranitidine Hcl 150 Mg Capsule 75 Mg PO DAILY 11/25/16 Reported Ondansetron Hcl 8 Mg Tablet 8 Mg PO DAILY 11/25/16 Reported Azithromycin Tablet (Azithromycin) 250 Mg Tablet 250 Mg PO DAILY 11/25/16 Reported Bupropion Hcl 100 Mg Tablet 100 Mg PO BID 11/25/16 Reported Nasal Allergy Pike (Cromolyn Sodium) 13 Ml Pike.pump 13 Ml NS DAILY 11/25/16 Reported Gabapentin 300 Mg Capsule 300 Mg PO BID 11/25/16 Reported Hydroxyzine Hcl 25 Mg Tablet 25 Mg PO DAILY 11/25/16 Reported Nystatin 15 Gm Cream..g. 15 Gm TP BID 11/25/16 Reported Duloxetine Hcl 60 Mg Capsule.dr 60 Mg PO DAILY 11/25/16 Reported Clonidine Hcl 0.1 Mg Tablet 0.1 Mg PO DAILY 11/25/16 Reported Lisinopril 20 Mg Tablet 20 Mg PO DAILY 11/25/16 Reported Famciclovir 125 Mg Tablet 125 Mg PO DAILY 11/25/16 Reported Ropinirole Hcl 0.25 Mg Tablet 0.25 Mg PO DAILY 11/25/16 Reported Hydroxychloroquine Sulfate 200 Mg Tablet 200 Mg PO DAILY 11/25/16 Reported Lyrica (Pregabalin) 150 Mg Capsule 150 Mg PO DAILY 11/25/16 Reported Furosemide 20 Mg Tablet 20 Mg PO DAILY 11/25/16 Reported Alprazolam 0.25 Mg Tablet 0.25 Mg PO 11/25/16 Reported Oxycodone Hcl 5 Mg Tablet 5 Mg PO PRN Q4HRS PRN 11/25/16 Reported Ibuprofen 400 Mg Tablet 400 Mg PO PRN DAILY PRN 05/11/15 Reported Multivitamins (Multivitamin) 1 Each Tablet 1 Each PO DAILY 05/11/15 Reported Oxycodone-Acetaminophen 10-325 (Oxycodone Hcl/Acetaminophen) 1 Each Tablet 1 Each PO PRN Q4-6HRS PRN 05/11/15 Reported Plaquenil (Hydroxychloroquine Sulfate) 200 Mg Tablet 200 Mg PO BID 08/19/13 Reported Comments cxr bilateral infiltrates no change Impression . 1. Acute respiratory failure, multifactorial in etiology. 2. Abnormal chest x-ray could be secondary to volume overload, congestive heart failure or pneumonia. 3. Septic shock, bacteremia, g + cocci CHARLI NEGATIVE 4. Hypotension, resolved. 5. Pancytopenia. 6. Systemic lupus erythematosus, immunocompromised. 7. Hyponatremia. 8. Acute kidney injury. 9. History of breast cancer. 10. Hepatitis C. 11. Gastroesophageal reflux disease. 12. MRSA colonization. Plan . REINTUBATED 12/10 EXTUBATED 12/13 DOING BETTER NPO FOR NOW UPPER EXT EDEMA RESTART TUBE FEEDING D/W RN/RT DECREASE STEROIDS IN AM ANTIBX PER YASMANY JUAREZ MD Dec 14, 2016 16:51
[2016-12-14] MEDS: rOPINIRole 0.25 MG TABLET. PO SCH (19:58)
[2016-12-15] VITALS (15 sets, daily range): BP systolic 148–184; BP diastolic 60–106
[2016-12-15] MEDS: ALBUTEROL SULFATE 2.5 MG/3 ML NEBU. NEB PRN ×2 (00:18→17:32)
[2016-12-15] MEDS: fentaNYL PF VIAL 100 MCG/2 ML VIAL IV PRN (00:34)
[2016-12-15] MEDS: AMINO AC 3%/ELECTROLYTE/GLYCER 1,000 ML IV SCH (04:25)
[2016-12-15] MEDS ORDERED: VANCOMYCIN RANDOM LEVEL. MC ONE ×2 (06:00)
[2016-12-15] MEDS: INSULIN ASPART 300 UNITS/3 ML INSULN.PEN SQ SCH ×3 (06:00→17:22)
[2016-12-15] MEDS: hydrALAZINE 20 MG/ML VIAL. IVP PRN (06:06)
[2016-12-15] MEDS: HALOPERIDOL LACTATE 5 MG/ML VIAL. IVP PRN ×2 (06:42→20:35)
[2016-12-15] MEDS: IPRATRPIUM/ALBUTEROL 0.5/2.5MG 3 ML NEBU. NEB SCH ×4 (07:44→19:31)
--- NOTE | 2016-12-15 08:11 | RAD ---
ABDOMEN AP Clinical Indication: Placement of Dobbhoff Comparison: AP chest, 2 days ago Findings: There are interstitial lung opacities. Left pleural effusion. Tip of Port-A-Cath is in the right atrium. There is new Dobbhoff, tip in the proximal stomach. Enteric tube has been removed. Lower abdomen outside of field of view. Right upper quadrant surgical clips. Mild air in bowel, pattern is nonspecific. No evidence of pneumoperitoneum. IMPRESSION: Enteric tube has been removed. Tip of Dobbhoff is in the proximal stomach.
--- NOTE | 2016-12-15 08:26 | PDOC ---
Infectious Disease Note Subjective Subjective "Thirsty" Mild anxiety Denies work of breathing, SOA or chest discomfort ROS ROS GEN: Denies fevers, chills, sweats GI: Denies n/v/d Vital Sign Vital Signs Vital Signs Date Time Temp Pulse Resp B/P (MAP) Pulse Ox O2 Delivery O2 Flow Rate FiO2 12/15/16 07:45 93 Nasal Cannula 2.0 12/15/16 07:00 121 27 180/86 (117) 12/14/16 23:00 97.9 97.9 Physical Exam PHYSICAL EXAM GENERAL: Propped up in bed, calm, flushed, NAD HEENT: OC/OP dry, Dobbhoff NECK: Supple LUNGS: Scattered soft wheezes, airway clear, nonlabored HEART: S1S2, no gallop, no murmur ABD: Soft, NT, BS active : Vaughan [employer]: Alert, oriented x 3, no focal neurologic deficit EXT: Generalized edema. SKIN: + purpura BLE. fading Port-a-cath. clean Labs Lab Laboratory Tests Test 12/14/16 09:05 12/14/16 14:56 12/14/16 17:07 12/14/16 22:30 Random Vancomycin Level 36.6 mcg/mL Glucose (Fingerstick) 141 mg/dL (70-99) 133 mg/dL (70-99) Vancomycin Level Trough 25.4 mcg/mL (10.0-20.0) Vancomycin Last Dose Date Vancomycin Last Dose Time 0600 Test 12/14/16 23:06 12/15/16 04:30 12/15/16 06:10 Glucose (Fingerstick) 114 mg/dL (70-99) 136 mg/dL (70-99) Random Vancomycin Level 23.5 mcg/mL Micro 12/10. BLD CULT RESULT 1 Final Staph aureus Antibiotic RSLT#1 Ciprofloxacin S Gentamicin S Levofloxacin S Linezolid S Nitrofurantoin S Oxacillin R Penicillin R Rifampin S Tetracycline S Trimethoprim/Sulfa S Vancomycin S Objective Assessment Sepsis. POA with MRSA bacteremia. 12/06 -TTE neg. repeat BC positive, 12/10 MRSA pneumonia, POA Hypotension, now off pressor Pancytopenia/anemia. slowly improving PCN allergy, reaction unknown Acute encephalopathy- improved LEONARDO Acute respiratory failure h/o breast cancer, s/p chemo. Port still in place Lupus on Plaquenil Recent E. coli UTI MRSA nares, 11/25, 12/06 Diarrhea. C. diff. neg 12/06 Plan Plan of Care d/c cont Vanc - remains on hold ? reason for elevation with nml. CR. area of redness about the neck Change to Daptomycin when Vanc trough less than 15 vanc trough 23.5 12/15 Monitor WBC, Cr and temp. May need to change off Vanc Repeat BC from 12/14 pending CHARLI pending. Will need CHARLI please Port will likely need removal. am labs Attending Co-Sign Attending Co-Sign The patient was seen and interviewed as well as examined at the bedside. The chart was reviewed. The case was discussed. Agree with the plan of care. YOCASTA RODRÍGUEZ APRN Dec 15, 2016 08:26 KEITH DAIGLE MD Dec 15, 2016 16:04
[2016-12-15] MEDS: PANTOPRAZOLE IV PUSH 40 MG VIAL. IVP SCH (08:40)
[2016-12-15] MEDS: ALPRAZolam 0.25 MG TABLET PO SCH (08:41)
[2016-12-15] MEDS: HYDROCORTISONE SOD SUCC/PF 100 MG/2 ML VIAL. IV SCH (08:41)
[2016-12-15] MEDS: buPROPion 100 MG TABLET PO SCH ×2 (08:41→20:34)
[2016-12-15] MEDS: PREGABALIN 75 MG CAPSULE PO SCH (08:41)
--- NOTE | 2016-12-15 10:31 | PDOC ---
PROGRESS NOTES Chief Complaint Chief Complaint 1. Severe sepsis with Shock, s/p pressors 2. MRSA bacteremia, + nares 2. Pancytopenia: background of sepsis 3. Acute respiratory failure RE intubation 12/11 - extubated 12/13 4. Malnutrition: MOderate - to severe 5. Lupus, immuno suppressive 6. Recently treated urinary tract infection, Escherichia coli. 7. Hyponatremia.:resolved 8. Mild hyperkalemia:resolved. \ 9. Hx breast CA 10. 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 The left atrium is mildly dilated. The right atrium size is normal. The aortic valve is calcified but opens well. Doppler and Color-flow revealed mild mitral regurgitation. The mitral valve is normal in structure Mitral annular calcification is mild. Doppler and Color Flow revealed mild tricuspid regurgitation. There is mild pulmonary hypertension. The PA pressure was estimated at 34 mmHg. Doppler and Color Flow revealed trace pulmonic valvular regurgitation. There is a trace of pericardial effusion. Vitals Vitals Vital Signs Date Time Temp Pulse Resp B/P (MAP) Pulse Ox O2 Delivery O2 Flow Rate FiO2 12/15/16 08:00 97.7 117 12 158/81 (106) 95 Nasal Cannula 2.0 97.7 Physical Exam General: Alert, Oriented X3 Heart: Normal S1, Normal S2 Lungs: Clear, Wheezing Abdomen: Normal bowel sounds, Soft Extremities: No clubbing Skin: Other Labs LABS Laboratory Tests Test 12/14/16 14:56 12/14/16 17:07 12/14/16 22:30 12/14/16 23:06 Glucose (Fingerstick) 141 mg/dL (70-99) 133 mg/dL (70-99) 114 mg/dL (70-99) Vancomycin Level Trough 25.4 mcg/mL (10.0-20.0) Vancomycin Last Dose Date Vancomycin Last Dose Time 599 Test 12/15/16 04:30 12/15/16 06:10 Random Vancomycin Level 23.5 mcg/mL Glucose (Fingerstick) 136 mg/dL (70-99) Review of Systems Review of Systems weak, hungry, no inc in soa or cp, or emesis Assessment and Plan Assessmemt and Plan Problems Medical Problems: (1) Respiratory failure Status: Acute Problems: Comment Review of Relevant I have reviewed the following items anselmo (where applicable) has been applied. Labs Laboratory Tests Test 12/13/16 12:57 12/13/16 17:30 12/13/16 17:44 12/13/16 23:34 Glucose (Fingerstick) 135 mg/dL (70-99) 137 mg/dL (70-99) 115 mg/dL (70-99) Vancomycin Level Trough 48.8 mcg/mL (10.0-20.0) Vancomycin Last Dose Date 12/13/16 Vancomycin Last Dose Time 599 Test 12/14/16 04:00 12/14/16 09:05 12/14/16 14:56 12/14/16 17:07 White Blood Count 7.3 x10^3/uL (4.0-11.0) Red Blood Count 2.97 x10^6/uL (3.50-5.40) Hemoglobin 8.9 g/dL (12.0-15.5) Hematocrit 26.7 % (36.0-47.0) Mean Corpuscular Volume 90 fL (79-100) Mean Corpuscular Hemoglobin 30 pg (25-35) Mean Corpuscular Hemoglobin Concent 34 g/dL (31-37) Red Cell Distribution Width 15.0 % (11.5-14.5) Platelet Count 42 x10^3/uL (140-400) Neutrophils (%) (Auto) 91 % (31-73) Lymphocytes (%) (Auto) 6 % (24-48) Monocytes (%) (Auto) 3 % (0-9) Eosinophils (%) (Auto) 0 % (0-3) Basophils (%) (Auto) 0 % (0-3) Neutrophils # (Auto) 6.7 x10^3uL (1.8-7.7) Lymphocytes # (Auto) 0.4 x10^3/uL (1.0-4.8) Monocytes # (Auto) 0.2 x10^3/uL (0.0-1.1) Eosinophils # (Auto) 0.0 x10^3/uL (0.0-0.7) Basophils # (Auto) 0.0 x10^3/uL (0.0-0.2) Segmented Neutrophils % 94 % (35-66) Band Neutrophils % 3 % (0-9) Lymphocytes % 1 % (24-48) Monocytes % 2 % (0-10) Toxic Granulation Present Dohle Bodies Present Platelet Estimate Decreased (ADEQUATE) Basophilic Stippling Present Anisocytosis Present Sodium Level 146 mmol/L (136-145) Potassium Level 4.2 mmol/L (3.5-5.1) Chloride Level 113 mmol/L (98-107) Carbon Dioxide Level 24 mmol/L (21-32) Anion Gap 9 (6-14) Blood Urea Nitrogen 59 mg/dL (7-20) Creatinine 1.0 mg/dL (0.6-1.0) Estimated GFR (Cockcroft-Gault) 69.7 Glucose Level 165 mg/dL (70-99) Calcium Level 8.8 mg/dL (8.5-10.1) Random Vancomycin Level 36.6 mcg/mL Glucose (Fingerstick) 141 mg/dL (70-99) 133 mg/dL (70-99) Test 12/14/16 22:30 12/14/16 23:06 12/15/16 04:30 12/15/16 06:10 Vancomycin Level Trough 25.4 mcg/mL (10.0-20.0) Vancomycin Last Dose Date Vancomycin Last Dose Time 0600 Glucose (Fingerstick) 114 mg/dL (70-99) 136 mg/dL (70-99) Random Vancomycin Level 23.5 mcg/mL Laboratory Tests Test 12/14/16 14:56 12/14/16 17:07 12/14/16 22:30 12/14/16 23:06 Glucose (Fingerstick) 141 mg/dL (70-99) 133 mg/dL (70-99) 114 mg/dL (70-99) Vancomycin Level Trough 25.4 mcg/mL (10.0-20.0) Vancomycin Last Dose Date Vancomycin Last Dose Time 0600 Test 12/15/16 04:30 12/15/16 06:10 Random Vancomycin Level 23.5 mcg/mL Glucose (Fingerstick) 136 mg/dL (70-99) Microbiology 12/14/16 Blood Culture - Preliminary, Resulted NO GROWTH AFTER 1 DAY 12/09/16 Stool Culture - Final, Complete 12/09/16 Stool Culture Result 1 (LUCINA) - Final, Complete 12/09/16 Campylobacter Antigen Assay - Final, Complete 12/09/16 Campylobactor Result 1 - Final, Complete 12/09/16 Shiga Toxin Test - Final, Complete 12/08/16 Sputum Culture - Final, Complete 12/08/16 Sputum Result 1 - Final, Complete 12/08/16 Antimicrobic Susceptibility - Final, Complete 12/06/16 Urine Culture - Final, Complete 12/06/16 Urine Culture Result 1 (LUCINA) - Final, Complete Medications Current Medications Sodium Chloride 1,000 ml @ 1,000 mls/hr 1X ONCE IV Last administered on 16:18; Start 12/06/16 at 16:15; Stop 12/06/16 at 17:14; Status DC Vancomycin HCl (Vanco Per Pharmacy) 1 each PRN DAILY PRN MC SEE COMMENTS Last administered on 12/14/16 10:22; Start 12/06/16 at 17:00 Levofloxacin/ Dextrose 150 ml @ 100 mls/hr 1X ONCE IV Last administered on 20:04; Start 12/06/16 at 17:00; Stop 12/06/16 at 18:29; Status DC Vancomycin HCl 2 gm/Sodium Chloride 500 ml @ 250 mls/hr 1X ONCE IV Last administered on 12/06/16 17:11; Start 12/06/16 at 17:00; Stop 12/06/16 at 18:59 ; Status DC Sodium Chloride 1,000 ml @ 1,000 mls/hr 1X ONCE IV Last administered on 17:09; Start 12/06/16 at 17:00; Stop 12/06/16 at 17:59; Status DC Meropenem 500 mg/ Sodium Chloride 50 ml @ 100 mls/hr Q8HRS IV Last administered on 12/10/16 07:30; Start 12/06/16 at 18:00; Stop 12/10/16 at 08:13 ; Status DC Dopamine HCl/ Dextrose 250 ml @ 16.414 mls/ hr 1X ONCE IV Last administered on 12/06/16 17:41; Start 12/06/16 at 17:15; Stop 12/07/16 at 08:28; Status DC Etomidate (Amidate) 20 mg 1X ONCE IV Last administered on 12/06/16 17:19; Start 12/06/16 at 17:15; Stop 12/06/16 at 17:17; Status DC Succinylcholine Chloride (Anectine) 100 mg 1X ONCE IV Last administered on 17:20; Start 12/06/16 at 17:15; Stop 12/06/16 at 17:17; Status DC Vancomycin HCl 1.25 gm/Sodium Chloride 250 ml @ 167 mls/hr Q24H IV Last administered on 12/07/16 18:39; Start 12/07/16 at 17:00; Stop 12/07/16 at 23:00 ; Status DC Vancomycin HCl 1 each 1X ONCE MC ; Start 12/07/16 at 16:30; Stop 12/07/16 at 16 :31; Status Cancel Midazolam HCl 100 ml @ As Directed STK-MED ONCE IV ; Start 12/06/16 at 17:36; Stop 12/06/16 at 17:37; Status DC Midazolam HCl (Versed) 5 mg STK-MED ONCE .ROUTE ; Start 12/06/16 at 17:37; Stop 12/06/16 at 17:38; Status DC Midazolam HCl (Versed) 5 mg PRN Q10MIN PRN IV SEDATION; Start 12/06/16 at 17:45 Hydrocortisone Sodium Succinate (Solu-CORTEF) 100 mg Q8HRS IV Last administered on 12/09/16 13:55; Start 12/06/16 at 18:30; Stop 12/09/16 at 16:21 ; Status DC Norepinephrine Bitartrate 16 mg/ Sodium Chloride 266 ml @ 0 mls/hr CONT PRN IV SEE I/O RECORD; Start 12/06/16 at 19:00; Status UNV Pantoprazole Sodium (Protonix Vial) 40 mg DAILYAC IVP Last administered on 12/15 08:40; Start 12/06/16 at 19:30 Acetaminophen (Tylenol) 325 mg PRN Q6HRS PRN PO MILD PAIN / TEMP; Start at 19:00 Hydralazine HCl (Apresoline) 10 mg PRN Q4HRS PRN IVP ELEVATED BP, SEE COMMENTS Last administered on 12/15/16 06:06; Start 12/06/16 at 19:00 Ondansetron HCl (Zofran) 4 mg PRN Q8HRS PRN IV NAUSEA/VOMITING; Start 12/06/16 at 19:00; Stop 12/12/16 at 08:31; Status DC Albuterol Sulfate (Ventolin Neb Soln) 2.5 mg PRN Q4HRS PRN NEB SHORTNESS OF BREATH Last administered on 12/15/16 00:18; Start 12/06/16 at 19:00 Norepinephrine Bitartrate 250 ml @ 1.875 mls/ hr CONT PRN IV SEE I/O RECORD Last administered on 12/06/16 19:55; Start 12/06/16 at 19:00 Sodium Chloride 1,000 ml @ 1,000 mls/hr 1X ONCE IV Last administered on 19:56; Start 12/06/16 at 19:15; Stop 12/06/16 at 20:14; Status DC Sodium Chloride 1,000 ml @ 75 mls/hr [id number] IV Last administered on 21:55; Start 12/06/16 at 19:15; Stop 12/09/16 at 18:44; Status DC Pneumococcal Polyvalent Vaccine (Do NOT chart on this placeholder) 1 each PRN DAILY PRN MC PT UNABLE TO RESPOND; Start 12/07/16 at 09:30; Status Cancel Pneumococcal Polyvalent Vaccine (Pneumovax 23) 0.5 ml ONCE ONCE VAX IM ; Start 12/08/16 at 09:00; Stop 12/08/16 at 09:01; Status DC Albuterol/ Ipratropium (Duoneb) 3 ml RTQID NEB Last administered on 12/15/16 07:44; Start 12/07/16 at 12:00 Midazolam HCl 100 ml @ 0 mls/hr CONT PRN IV SEE I/O RECORD Last administered on 12/07/16 10:29; Start 12/07/16 at 10:15; Stop 12/13/16 at 20:41; Status DC Fentanyl Citrate (Fentanyl 2ml Vial) 25 mcg PRN Q1HR PRN IV PAIN Last administered on 12/15/16 00:34; Start 12/07/16 at 10:45 Pantoprazole Sodium (Protonix Vial) 40 mg DAILYAC IVP ; Start 12/07/16 at 17:00 ; Status Cancel Vancomycin HCl 1.25 gm/Sodium Chloride 250 ml @ 167 mls/hr Q12H IV Last administered on 12/13/16 18:25; Start 12/08/16 at 06:00; Stop 12/13/16 at 18:54 ; Status DC Vancomycin HCl 1 each 1X ONCE MC ; Start 12/08/16 at 17:30; Stop 12/08/16 at 17 :31; Status DC Vancomycin HCl 1 gm/Sodium Chloride 250 ml @ 250 mls/hr Q12H IV ; Start at 18:00; Status Cancel Chlorhexidine Gluconate (Peridex) 15 ml BID SWSP ; Start 12/09/16 at 21:00; Stop 12/10/16 at 07:23; Status DC Hydrocortisone Sodium Succinate (Solu-CORTEF) 100 mg Q12HR IV Last administered on 12/14/16 08:53; Start 12/09/16 at 21:00; Stop 12/14/16 at 16:52 ; Status DC Amino Acids/ Glycerin/ Electrolytes 1,000 ml @ 40 mls/hr Q24H IV Last administered on 12/09/16 17:56; Start 12/09/16 at 17:00; Stop 12/10/16 at 14:16 ; Status DC Alprazolam (Xanax) 0.25 mg DAILY PO Last administered on 12/15/16 08:41; Start 12/10/16 at 09:00 Bupropion HCl (Wellbutrin) 100 mg BID PO Last administered on 12/15/16 08:41; Start 12/09/16 at 21:00 Gabapentin (Neurontin) 300 mg BID PO ; Start 12/09/16 at 21:00; Status Cancel Ropinirole HCl (Requip) 0.25 mg QHS PO Last administered on 12/12/16 21:09; Start 12/09/16 at 21:00 Pregabalin (Lyrica) 150 mg DAILY PO Last administered on 12/15/16 08:41; Start 12/10/16 at 09:00 Epinephrine (S2 Racepinephrine) 0.5 ml 1X ONCE NEB Last administered on 07:45; Start 12/10/16 at 07:45; Stop 12/10/16 at 07:46; Status DC Lorazepam (Ativan) 2 mg 1X ONCE IV Last administered on 12/10/16 08:33; Start 12/10/16 at 08:00; Stop 12/10/16 at 08:01; Status DC Succinylcholine Chloride (Anectine) 200 mg STK-MED ONCE .ROUTE ; Start 12/10/16 at 10:28; Stop 12/10/16 at 10:29; Status DC Propofol 100 ml @ As Directed STK-MED ONCE IV ; Start 12/10/16 at 10:28; Stop 12/10/16 at 10:29; Status DC Calcium Gluconate (Calcium Gluconate) 1,000 mg 1X ONCE IVP Last administered on 12/10/16 11:41; Start 12/10/16 at 11:30; Stop 12/10/16 at 11:31; Status DC Succinylcholine Chloride (Anectine) 200 mg 1X ONCE IV Last administered on 11:41; Start 12/10/16 at 11:30; Stop 12/10/16 at 11:31; Status DC Propofol 100 ml @ 0 mls/hr CONT PRN IV SEE I/O RECORD Last administered on 12/13 00:57; Start 12/10/16 at 11:30; Stop 12/13/16 at 20:41; Status DC Insulin Aspart (NovoLOG) 0-5 UNITS TIDWMEALS SQ ; Start 12/11/16 at 08:00; Stop 12/11/16 at 08:00; Status DC Dextrose (Dextrose 50%-Water Syringe) 12.5 gm PRN Q15MIN PRN IV SEE COMMENTS; Start 12/10/16 at 20:30 Insulin Aspart (NovoLOG) 0-5 UNITS Q6HRS SQ Last administered on 12/13/16 06: 25; Start 12/11/16 at 00:00 Chlorhexidine Gluconate (Peridex) 15 ml BID MM Last administered on 12/13/16 09:46; Start 12/11/16 at 21:00; Stop 12/13/16 at 20:41; Status DC Fentanyl Citrate (Fentanyl 2ml Vial) 25 mcg PRN Q5MIN PRN IV MILD PAIN; Start 12/12/16 at 07:00; Stop 12/13/16 at 06:59; Status DC Fentanyl Citrate (Fentanyl 2ml Vial) 50 mcg PRN Q5MIN PRN IV MODERATE PAIN; Start 12/12/16 at 07:00; Stop 12/13/16 at 06:59; Status DC Morphine Sulfate 1 mg PRN Q10MIN PRN IV SEVERE PAIN; Start 12/12/16 at 07:00; Stop 12/13/16 at 06:59; Status DC Ringer's Solution 1,000 ml @ 30 mls/hr Q24H IV ; Start 12/12/16 at 07:00; Stop 12/12/16 at 18:59; Status DC Lidocaine HCl 2 ml PRN 1X PRN ID PRIOR TO IV START; Start 12/12/16 at 07:00; Stop 12/13/16 at 06:59; Status DC Hydromorphone HCl (Dilaudid) 0.5 mg PRN Q10MIN PRN IV SEV PAIN, Second choice; Start 12/12/16 at 07:00; Stop 12/13/16 at 06:59; Status DC Prochlorperazine Edisylate (Compazine) 5 mg PACU PRN PRN IV NAUSEA, MRX1; Start 12/12/16 at 07:00; Stop 12/13/16 at 06:59; Status DC Lidocaine HCl (Lidocaine Pf 2% Vial) 5 ml STK-MED ONCE .ROUTE ; Start 12/12/16 at 08:15; Stop 12/12/16 at 08:16; Status DC Propofol 0 ml @ As Directed STK-MED ONCE IV ; Start 12/12/16 at 08:15; Stop at 08:16; Status DC Ondansetron HCl (Zofran) 4 mg PRN Q6HRS PRN IV NAUSEA/VOMITING Last administered on 12/14/16 01:41; Start 12/12/16 at 19:00 Acetaminophen (Tylenol) 650 mg PRN Q6HRS PRN PEG MILD PAIN / TEMP; Start at 08:30 Vancomycin HCl 1 each 1X ONCE MC Last administered on 12/13/16 10:00; Start 12/13/16 at 10:00; Stop 12/13/16 at 10:01; Status DC Furosemide (Lasix) 40 mg 1X ONCE IVP Last administered on 12/13/16 11:31; Start 12/13/16 at 11:15; Stop 12/13/16 at 11:16; Status DC Amino Acids/ Glycerin/ Electrolytes 1,000 ml @ 75 mls/hr [id number] IV Last administered on 12/15/16 04:25; Start 12/13/16 at 21:00 Vancomycin HCl 1 each 1X ONCE MC Last administered on 12/14/16 09:00; Start 12/14/16 at 09:00; Stop 12/14/16 at 09:01; Status DC Vancomycin HCl 1 each 1X ONCE MC ; Start 12/15/16 at 06:00; Stop 12/15/16 at 06 :01; Status Cancel Vancomycin HCl 1 each 1X ONCE MC Last administered on 12/15/16 06:00; Start 12/15/16 at 06:00; Stop 12/15/16 at 06:01; Status DC Alteplase, Recombinant (Cathflo) 2 mg 1X ONCE INT CAT Last administered on 14:58; Start 12/14/16 at 14:30; Stop 12/14/16 at 14:34; Status DC Hydrocortisone Sodium Succinate (Solu-CORTEF) 100 mg DAILY IV Last administered on 12/15/16 08:41; Start 12/15/16 at 09:00 Haloperidol Lactate (Haldol) 2.5 mg PRN Q4HRS PRN IVP AGITATION Last administered on 12/15/16 06:42; Start 12/15/16 at 06:45 Active Scripts Active Oxycodone Hcl 5 Mg Tablet 5 Mg PO PRN Q6HRS PRN Reported Albuterol Sulfate Neb Soln (Albuterol Sulfate) 1.25 Mg/3 Ml Vial.neb 1 Vial NEB Q6HRS Ranitidine Hcl 150 Mg Capsule 75 Mg PO DAILY Ondansetron Hcl 8 Mg Tablet 8 Mg PO DAILY Azithromycin Tablet (Azithromycin) 250 Mg Tablet 250 Mg PO DAILY Bupropion Hcl 100 Mg Tablet 100 Mg PO BID Nasal Allergy Rupert (Cromolyn Sodium) 13 Ml Rupert.pump 13 Ml NS DAILY Gabapentin 300 Mg Capsule 300 Mg PO BID Hydroxyzine Hcl 25 Mg Tablet 25 Mg PO DAILY Nystatin 15 Gm Cream..g. 15 Gm TP BID Duloxetine Hcl 60 Mg Capsule.dr 60 Mg PO DAILY Clonidine Hcl 0.1 Mg Tablet 0.1 Mg PO DAILY Lisinopril 20 Mg Tablet 20 Mg PO DAILY Famciclovir 125 Mg Tablet 125 Mg PO DAILY Ropinirole Hcl 0.25 Mg Tablet 0.25 Mg PO DAILY Hydroxychloroquine Sulfate 200 Mg Tablet 200 Mg PO DAILY Lyrica (Pregabalin) 150 Mg Capsule 150 Mg PO DAILY Furosemide 20 Mg Tablet 20 Mg PO DAILY Alprazolam 0.25 Mg Tablet 0.25 Mg PO Oxycodone Hcl 5 Mg Tablet 5 Mg PO PRN Q4HRS PRN Ibuprofen 400 Mg Tablet 400 Mg PO PRN DAILY PRN Multivitamins (Multivitamin) 1 Each Tablet 1 Each PO DAILY Oxycodone-Acetaminophen 10-325 (Oxycodone Hcl/Acetaminophen) 1 Each Tablet 1 Each PO PRN Q4-6HRS PRN Plaquenil (Hydroxychloroquine Sulfate) 200 Mg Tablet 200 Mg PO BID Vitals/I & O Vital Sign - Last 24 Hours 12/14/16 12/14/16 12/14/16 12/14/16 11:00 11:21 12:00 12:00 Temp 99.5 99.5 Pulse 97 97 Resp 16 16 B/P (MAP) 156/80 (105) 154/86 (108) Pulse Ox 98 98 99 O2 Delivery Nasal Cannula Nasal Cannula Nasal Cannula Nasal Cannula O2 Flow Rate 2.0 2.0 2.0 2.0 12/14/16 12/14/16 12/14/16 12/14/16 13:00 14:00 15:00 16:00 Temp 99.1 99.1 Pulse 96 93 96 97 Resp 16 B/P (MAP) 162/86 (111) 168/94 (118) 173/93 (119) 171/86 (114) Pulse Ox 99 100 98 99 O2 Delivery Nasal Cannula Nasal Cannula Nasal Cannula Nasal Cannula O2 Flow Rate 2.0 2.0 2.0 2.0 12/14/16 12/14/16 12/14/16 12/14/16 16:00 16:23 17:00 18:00 Pulse 96 96 Resp 22 22 B/P (MAP) 169/85 (113) 172/88 (116) Pulse Ox 98 96 97 O2 Delivery Nasal Cannula Nasal Cannula Nasal Cannula Nasal Cannula O2 Flow Rate 2.0 2.0 2.0 2.0 12/14/16 12/14/16 12/14/16 12/14/16 19:00 19:25 19:41 20:00 Temp 98.0 98.0 Pulse 96 100 Resp 26 B/P (MAP) 177/100 (125) 177/100 Pulse Ox 97 96 O2 Delivery Nasal Cannula Nasal Cannula Nasal Cannula O2 Flow Rate 2.0 2.0 2.0 12/14/16 12/14/16 12/14/16 12/14/16 20:00 21:00 21:27 21:57 Pulse 100 103 Resp 12 13 13 13 B/P (MAP) 173/86 (115) 155/81 (105) Pulse Ox 99 98 98 98 O2 Delivery Nasal Cannula Nasal Cannula Nasal Cannula Nasal Cannula O2 Flow Rate 2.0 2.0 2.0 2.0 12/14/16 12/14/16 12/14/16 12/15/16 22:00 23:00 23:33 00:00 Temp 97.9 97.9 Pulse 97 98 100 Resp 16 14 B/P (MAP) 167/84 (111) 175/90 (118) 186/91 Pulse Ox 97 98 O2 Delivery Nasal Cannula Nasal Cannula Nasal Cannula O2 Flow Rate 2.0 2.0 2.0 12/15/16 12/15/16 12/15/16 12/15/16 00:00 00:18 00:34 01:00 Pulse 112 104 Resp 13 16 15 B/P (MAP) 184/98 (126) 159/60 (93) Pulse Ox 98 99 98 98 O2 Delivery Nasal Cannula Nasal Cannula Nasal Cannula Nasal Cannula O2 Flow Rate 2.0 2.0 2.0 2.0 12/15/16 12/15/16 12/15/16 12/15/16 02:00 03:00 04:00 04:00 Pulse 100 96 96 Resp 14 14 24 B/P (MAP) 148/85 (106) 158/88 (111) 158/89 (112) Pulse Ox 98 98 98 O2 Delivery Nasal Cannula Nasal Cannula Nasal Cannula Nasal Cannula O2 Flow Rate 2.0 2.0 2.0 2.0 12/15/16 12/15/16 12/15/16 12/15/16 05:00 06:06 06:40 07:00 Pulse 96 128 128 121 Resp 22 26 27 B/P (MAP) 179/98 (125) 179/98 177/106 (129) 180/86 (117) Pulse Ox 91 90 97 O2 Delivery Nasal Cannula Nasal Cannula Nasal Cannula O2 Flow Rate 2.0 2.0 2.0 12/15/16 12/15/16 12/15/16 07:45 08:00 08:00 Temp 97.7 97.7 Pulse 117 Resp 12 B/P (MAP) 158/81 (106) Pulse Ox 93 95 O2 Delivery Nasal Cannula Nasal Cannula Nasal Cannula O2 Flow Rate 2.0 2.0 2.0 Intake and Output 12/14/16 12/14/16 12/15/16 15:00 23:00 07:00 Intake Total 802 ml 700 ml Output Total 745 ml 710 ml 165 ml Balance -745 ml 92 ml 535 ml Nutrition Consultation Dietary Evaluation: Recommendations by RD: Increase Calorie Intake Comments: Contiue the TF's with Diabetisource AC, goal rate 60 ml/hr start at 20 ml/hr, increase by 20 ml/hr q8h to goal flushes 225 cc q6h Expected Outcomes/Goals: tolerate the TF's at goal rate- goal met meet 75% estimated nutrition needs- goal met Malnutrition Findings: 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
--- NOTE | 2016-12-15 12:11 | PDOC ---
PULMONARY PROGRESS NOTES Subjective LESS SOA SITTING IN CHAIR Vitals Vital Signs Date Time Temp Pulse Resp B/P (MAP) Pulse Ox O2 Delivery O2 Flow Rate FiO2 12/15/16 11:18 96 Nasal Cannula 2.0 12/15/16 11:00 110 15 160/96 (117) 12/15/16 08:00 97.7 97.7 ROS: No Nausea, No Chest Pain, No Abdominal Pain, No Increase Cough General: Alert HEENT: Other (nc at perrl, orally intubated, nose clear... neck no lap, no thyromegaly) Lungs: Clear, Wheezing Cardiovascular: S1, S2 Abdomen: Soft, Non-tender Neuro Exam: Alert Extremities: Other (edema) Skin: Warm Labs Laboratory Tests Test 12/13/16 12:57 12/13/16 17:30 12/13/16 17:44 12/13/16 23:34 Glucose (Fingerstick) 135 mg/dL (70-99) 137 mg/dL (70-99) 115 mg/dL (70-99) Vancomycin Level Trough 48.8 mcg/mL (10.0-20.0) Vancomycin Last Dose Date 12/13/16 Vancomycin Last Dose Time 0600 Test 12/14/16 04:00 12/14/16 09:05 12/14/16 14:56 12/14/16 17:07 White Blood Count 7.3 x10^3/uL (4.0-11.0) Red Blood Count 2.97 x10^6/uL (3.50-5.40) Hemoglobin 8.9 g/dL (12.0-15.5) Hematocrit 26.7 % (36.0-47.0) Mean Corpuscular Volume 90 fL (79-100) Mean Corpuscular Hemoglobin 30 pg (25-35) Mean Corpuscular Hemoglobin Concent 34 g/dL (31-37) Red Cell Distribution Width 15.0 % (11.5-14.5) Platelet Count 42 x10^3/uL (140-400) Neutrophils (%) (Auto) 91 % (31-73) Lymphocytes (%) (Auto) 6 % (24-48) Monocytes (%) (Auto) 3 % (0-9) Eosinophils (%) (Auto) 0 % (0-3) Basophils (%) (Auto) 0 % (0-3) Neutrophils # (Auto) 6.7 x10^3uL (1.8-7.7) Lymphocytes # (Auto) 0.4 x10^3/uL (1.0-4.8) Monocytes # (Auto) 0.2 x10^3/uL (0.0-1.1) Eosinophils # (Auto) 0.0 x10^3/uL (0.0-0.7) Basophils # (Auto) 0.0 x10^3/uL (0.0-0.2) Segmented Neutrophils % 94 % (35-66) Band Neutrophils % 3 % (0-9) Lymphocytes % 1 % (24-48) Monocytes % 2 % (0-10) Toxic Granulation Present Dohle Bodies Present Platelet Estimate Decreased (ADEQUATE) Basophilic Stippling Present Anisocytosis Present Sodium Level 146 mmol/L (136-145) Potassium Level 4.2 mmol/L (3.5-5.1) Chloride Level 113 mmol/L (98-107) Carbon Dioxide Level 24 mmol/L (21-32) Anion Gap 9 (6-14) Blood Urea Nitrogen 59 mg/dL (7-20) Creatinine 1.0 mg/dL (0.6-1.0) Estimated GFR (Cockcroft-Gault) 69.7 Glucose Level 165 mg/dL (70-99) Calcium Level 8.8 mg/dL (8.5-10.1) Random Vancomycin Level 36.6 mcg/mL Glucose (Fingerstick) 141 mg/dL (70-99) 133 mg/dL (70-99) Test 12/14/16 22:30 12/14/16 23:06 12/15/16 04:30 12/15/16 06:10 Vancomycin Level Trough 25.4 mcg/mL (10.0-20.0) Vancomycin Last Dose Date Vancomycin Last Dose Time 0600 Glucose (Fingerstick) 114 mg/dL (70-99) 136 mg/dL (70-99) Random Vancomycin Level 23.5 mcg/mL Laboratory Tests Test 12/14/16 14:56 12/14/16 17:07 12/14/16 22:30 12/14/16 23:06 Glucose (Fingerstick) 141 mg/dL (70-99) 133 mg/dL (70-99) 114 mg/dL (70-99) Vancomycin Level Trough 25.4 mcg/mL (10.0-20.0) Vancomycin Last Dose Date Vancomycin Last Dose Time 0600 Test 12/15/16 04:30 12/15/16 06:10 Random Vancomycin Level 23.5 mcg/mL Glucose (Fingerstick) 136 mg/dL (70-99) Medications Active Scripts Medications Dose Route/Sig Max Daily Dose Days Date Category Oxycodone Hcl 5 Mg Tablet 5 Mg PO PRN Q6HRS PRN 11/28/16 Rx Albuterol Sulfate Neb Soln (Albuterol Sulfate) 1.25 Mg/3 Ml Vial.neb 1 Vial NEB Q6HRS 11/25/16 Reported Ranitidine Hcl 150 Mg Capsule 75 Mg PO DAILY 11/25/16 Reported Ondansetron Hcl 8 Mg Tablet 8 Mg PO DAILY 11/25/16 Reported Azithromycin Tablet (Azithromycin) 250 Mg Tablet 250 Mg PO DAILY 11/25/16 Reported Bupropion Hcl 100 Mg Tablet 100 Mg PO BID 11/25/16 Reported Nasal Allergy [place] (Cromolyn Sodium) 13 Ml [place].pump 13 Ml NS DAILY 11/25/16 Reported Gabapentin 300 Mg Capsule 300 Mg PO BID 11/25/16 Reported Hydroxyzine Hcl 25 Mg Tablet 25 Mg PO DAILY 11/25/16 Reported Nystatin 15 Gm Cream..g. 15 Gm TP BID 11/25/16 Reported Duloxetine Hcl 60 Mg Capsule.dr 60 Mg PO DAILY 11/25/16 Reported Clonidine Hcl 0.1 Mg Tablet 0.1 Mg PO DAILY 11/25/16 Reported Lisinopril 20 Mg Tablet 20 Mg PO DAILY 11/25/16 Reported Famciclovir 125 Mg Tablet 125 Mg PO DAILY 11/25/16 Reported Ropinirole Hcl 0.25 Mg Tablet 0.25 Mg PO DAILY 11/25/16 Reported Hydroxychloroquine Sulfate 200 Mg Tablet 200 Mg PO DAILY 11/25/16 Reported Lyrica (Pregabalin) 150 Mg Capsule 150 Mg PO DAILY 11/25/16 Reported Furosemide 20 Mg Tablet 20 Mg PO DAILY 11/25/16 Reported Alprazolam 0.25 Mg Tablet 0.25 Mg PO 11/25/16 Reported Oxycodone Hcl 5 Mg Tablet 5 Mg PO PRN Q4HRS PRN 11/25/16 Reported Ibuprofen 400 Mg Tablet 400 Mg PO PRN DAILY PRN 05/11/15 Reported Multivitamins (Multivitamin) 1 Each Tablet 1 Each PO DAILY 05/11/15 Reported Oxycodone-Acetaminophen 10-325 (Oxycodone Hcl/Acetaminophen) 1 Each Tablet 1 Each PO PRN Q4-6HRS PRN 05/11/15 Reported Plaquenil (Hydroxychloroquine Sulfate) 200 Mg Tablet 200 Mg PO BID 08/19/13 Reported Comments cxr bilateral infiltrates no change Impression . 1. Acute respiratory failure, multifactorial in etiology. 2. Abnormal chest x-ray could be secondary to volume overload, congestive heart failure or pneumonia. 3. Septic shock, bacteremia, g + cocci CHARLI NEGATIVE 4. Hypotension, resolved. 5. Pancytopenia. 6. Systemic lupus erythematosus, immunocompromised. 7. Hyponatremia. 8. Acute kidney injury. 9. History of breast cancer. 10. Hepatitis C. 11. Gastroesophageal reflux disease. 12. MRSA colonization. Plan . RESP STATUS IMPROVING WILL NEED SPEECH EVAL FOLLOW UP REINTUBATED 12/10 EXTUBATED 12/13 DOING BETTER NPO FOR NOW UPPER EXT EDEMA RESTART TUBE FEEDING D/W RN/RT DECREASE STEROIDS IN AM ANTIBX PER YASMANY JUAREZ MD Dec 15, 2016 12:11
--- NOTE | 2016-12-15 13:25 | PDOC ---
PROGRESS NOTES Subjective Subjective c/c - f/u of Acute pancytopenia Objective Objective Vital Signs Date Time Temp Pulse Resp B/P (MAP) Pulse Ox O2 Delivery O2 Flow Rate FiO2 12/15/16 11:18 96 Nasal Cannula 2.0 12/15/16 11:00 110 15 160/96 (117) 12/15/16 08:00 97.7 97.7 Intake and Output 12/15/16 07:00 Intake Total 1502 ml Output Total 1620 ml Balance -118 ml IV Total 1502 ml Output Urine Total 1620 ml Physical Exam General: Alert, Oriented X3 Neuro: Normal speech Psych/Mental Status: Mental status NL Assessment Assessment Problems Medical Problems: (1) Respiratory failure Status: Acute ASSESSMENT AND PLAN: The patient is a 55-year-old female with the following medical problems: 1. Acute pancytopenia, likely related to her severe sepsis with methicillin-resistant Staphylococcus aureus bacteremia. Her CBC was normal in late 10/2016. I recommend continuing to treat the underlying infection as you are doing. Transfuse for hemoglobin less than 7, platelets less than 20. She has no evidence of bleeding at this time. 2. Left upper extremity swelling. Ultrasound negative for a DVT 3. 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 She has several risk features. Ultimately, she agreed to have a mastectomy, which was completed in 04/2015. Her tumor was ER/TN negative, HER2 positive. She completed adjuvant Adriamycin/Cytoxan in 06/2015 and Taxol/Herceptin. She completed 1 year of Herceptin in 07/2016. A CT scan in 07/2016 showed indeterminant hilar lymph nodes and pulmonary nodules and bone scan was negative for any metastases. 4. Anemia worse, Hb 8.9,s/p transfusion 5. Thrombocytopenia better at 42, monitor cbc.. I d/w pt and dtr She will be transferred to 6th floor today. Comment Review of Relevant I have reviewed the following items anselmo (where applicable) has been applied. Labs Laboratory Tests Test 12/13/16 17:30 12/13/16 17:44 12/13/16 23:34 12/14/16 04:00 Vancomycin Level Trough 48.8 mcg/mL (10.0-20.0) Vancomycin Last Dose Date 12/13/16 Vancomycin Last Dose Time 0600 Glucose (Fingerstick) 137 mg/dL (70-99) 115 mg/dL (70-99) White Blood Count 7.3 x10^3/uL (4.0-11.0) Red Blood Count 2.97 x10^6/uL (3.50-5.40) Hemoglobin 8.9 g/dL (12.0-15.5) Hematocrit 26.7 % (36.0-47.0) Mean Corpuscular Volume 90 fL (79-100) Mean Corpuscular Hemoglobin 30 pg (25-35) Mean Corpuscular Hemoglobin Concent 34 g/dL (31-37) Red Cell Distribution Width 15.0 % (11.5-14.5) Platelet Count 42 x10^3/uL (140-400) Neutrophils (%) (Auto) 91 % (31-73) Lymphocytes (%) (Auto) 6 % (24-48) Monocytes (%) (Auto) 3 % (0-9) Eosinophils (%) (Auto) 0 % (0-3) Basophils (%) (Auto) 0 % (0-3) Neutrophils # (Auto) 6.7 x10^3uL (1.8-7.7) Lymphocytes # (Auto) 0.4 x10^3/uL (1.0-4.8) Monocytes # (Auto) 0.2 x10^3/uL (0.0-1.1) Eosinophils # (Auto) 0.0 x10^3/uL (0.0-0.7) Basophils # (Auto) 0.0 x10^3/uL (0.0-0.2) Segmented Neutrophils % 94 % (35-66) Band Neutrophils % 3 % (0-9) Lymphocytes % 1 % (24-48) Monocytes % 2 % (0-10) Toxic Granulation Present Dohle Bodies Present Platelet Estimate Decreased (ADEQUATE) Basophilic Stippling Present Anisocytosis Present Sodium Level 146 mmol/L (136-145) Potassium Level 4.2 mmol/L (3.5-5.1) Chloride Level 113 mmol/L (98-107) Carbon Dioxide Level 24 mmol/L (21-32) Anion Gap 9 (6-14) Blood Urea Nitrogen 59 mg/dL (7-20) Creatinine 1.0 mg/dL (0.6-1.0) Estimated GFR (Cockcroft-Gault) 69.7 Glucose Level 165 mg/dL (70-99) Calcium Level 8.8 mg/dL (8.5-10.1) Test 12/14/16 09:05 12/14/16 14:56 12/14/16 17:07 12/14/16 22:30 Random Vancomycin Level 36.6 mcg/mL Glucose (Fingerstick) 141 mg/dL (70-99) 133 mg/dL (70-99) Vancomycin Level Trough 25.4 mcg/mL (10.0-20.0) Vancomycin Last Dose Date Vancomycin Last Dose Time 06 Test 12/14/16 23:06 12/15/16 04:30 12/15/16 06:10 Glucose (Fingerstick) 114 mg/dL (70-99) 136 mg/dL (70-99) Random Vancomycin Level 23.5 mcg/mL Laboratory Tests Test 12/14/16 14:56 12/14/16 17:07 12/14/16 22:30 12/14/16 23:06 Glucose (Fingerstick) 141 mg/dL (70-99) 133 mg/dL (70-99) 114 mg/dL (70-99) Vancomycin Level Trough 25.4 mcg/mL (10.0-20.0) Vancomycin Last Dose Date Vancomycin Last Dose Time 06 Test 12/15/16 04:30 12/15/16 06:10 Random Vancomycin Level 23.5 mcg/mL Glucose (Fingerstick) 136 mg/dL (70-99) Microbiology 12/14/16 Blood Culture - Preliminary, Resulted NO GROWTH AFTER 1 DAY 12/09/16 Stool Culture - Final, Complete 12/09/16 Stool Culture Result 1 (LUCINA) - Final, Complete 12/09/16 Campylobacter Antigen Assay - Final, Complete 12/09/16 Campylobactor Result 1 - Final, Complete 12/09/16 Shiga Toxin Test - Final, Complete 12/08/16 Sputum Culture - Final, Complete 12/08/16 Sputum Result 1 - Final, Complete 12/08/16 Antimicrobic Susceptibility - Final, Complete 12/06/16 Urine Culture - Final, Complete 12/06/16 Urine Culture Result 1 (LUCINA) - Final, Complete Medications Current Medications Sodium Chloride 1,000 ml @ 1,000 mls/hr 1X ONCE IV Last administered on 16:18; Start 12/06/16 at 16:15; Stop 12/06/16 at 17:14; Status DC Vancomycin HCl (Vanco Per Pharmacy) 1 each PRN DAILY PRN MC SEE COMMENTS Last administered on 12/14/16 10:22; Start 12/06/16 at 17:00 Levofloxacin/ Dextrose 150 ml @ 100 mls/hr 1X ONCE IV Last administered on 20:04; Start 12/06/16 at 17:00; Stop 12/06/16 at 18:29; Status DC Vancomycin HCl 2 gm/Sodium Chloride 500 ml @ 250 mls/hr 1X ONCE IV Last administered on 12/06/16 17:11; Start 12/06/16 at 17:00; Stop 12/06/16 at 18:59 ; Status DC Sodium Chloride 1,000 ml @ 1,000 mls/hr 1X ONCE IV Last administered on 17:09; Start 12/06/16 at 17:00; Stop 12/06/16 at 17:59; Status DC Meropenem 500 mg/ Sodium Chloride 50 ml @ 100 mls/hr Q8HRS IV Last administered on 12/10/16 07:30; Start 12/06/16 at 18:00; Stop 12/10/16 at 08:13 ; Status DC Dopamine HCl/ Dextrose 250 ml @ 16.414 mls/ hr 1X ONCE IV Last administered on 12/06/16 17:41; Start 12/06/16 at 17:15; Stop 12/07/16 at 08:28; Status DC Etomidate (Amidate) 20 mg 1X ONCE IV Last administered on 12/06/16 17:19; Start 12/06/16 at 17:15; Stop 12/06/16 at 17:17; Status DC Succinylcholine Chloride (Anectine) 100 mg 1X ONCE IV Last administered on 17:20; Start 12/06/16 at 17:15; Stop 12/06/16 at 17:17; Status DC Vancomycin HCl 1.25 gm/Sodium Chloride 250 ml @ 167 mls/hr Q24H IV Last administered on 12/07/16 18:39; Start 12/07/16 at 17:00; Stop 12/07/16 at 23:00 ; Status DC Vancomycin HCl 1 each 1X ONCE MC ; Start 12/07/16 at 16:30; Stop 12/07/16 at 16 :31; Status Cancel Midazolam HCl 100 ml @ As Directed STK-MED ONCE IV ; Start 12/06/16 at 17:36; Stop 12/06/16 at 17:37; Status DC Midazolam HCl (Versed) 5 mg STK-MED ONCE .ROUTE ; Start 12/06/16 at 17:37; Stop 12/06/16 at 17:38; Status DC Midazolam HCl (Versed) 5 mg PRN Q10MIN PRN IV SEDATION; Start 12/06/16 at 17:45 Hydrocortisone Sodium Succinate (Solu-CORTEF) 100 mg Q8HRS IV Last administered on 12/09/16 13:55; Start 12/06/16 at 18:30; Stop 12/09/16 at 16:21 ; Status DC Norepinephrine Bitartrate 16 mg/ Sodium Chloride 266 ml @ 0 mls/hr CONT PRN IV SEE I/O RECORD; Start 12/06/16 at 19:00; Status UNV Pantoprazole Sodium (Protonix Vial) 40 mg DAILYAC IVP Last administered on 12/15 08:40; Start 12/06/16 at 19:30; Stop 12/15/16 at 10:35; Status DC Acetaminophen (Tylenol) 325 mg PRN Q6HRS PRN PO MILD PAIN / TEMP; Start at 19:00 Hydralazine HCl (Apresoline) 10 mg PRN Q4HRS PRN IVP ELEVATED BP, SEE COMMENTS Last administered on 12/15/16 06:06; Start 12/06/16 at 19:00 Ondansetron HCl (Zofran) 4 mg PRN Q8HRS PRN IV NAUSEA/VOMITING; Start 12/06/16 at 19:00; Stop 12/12/16 at 08:31; Status DC Albuterol Sulfate (Ventolin Neb Soln) 2.5 mg PRN Q4HRS PRN NEB SHORTNESS OF BREATH Last administered on 12/15/16 00:18; Start 12/06/16 at 19:00 Norepinephrine Bitartrate 250 ml @ 1.875 mls/ hr CONT PRN IV SEE I/O RECORD Last administered on 12/06/16 19:55; Start 12/06/16 at 19:00; Stop 12/15/16 at 10:33; Status DC Sodium Chloride 1,000 ml @ 1,000 mls/hr 1X ONCE IV Last administered on 19:56; Start 12/06/16 at 19:15; Stop 12/06/16 at 20:14; Status DC Sodium Chloride 1,000 ml @ 75 mls/hr [id number] IV Last administered on 21:55; Start 12/06/16 at 19:15; Stop 12/09/16 at 18:44; Status DC Pneumococcal Polyvalent Vaccine (Do NOT chart on this placeholder) 1 each PRN DAILY PRN MC PT UNABLE TO RESPOND; Start 12/07/16 at 09:30; Status Cancel Pneumococcal Polyvalent Vaccine (Pneumovax 23) 0.5 ml ONCE ONCE VAX IM ; Start 12/08/16 at 09:00; Stop 12/08/16 at 09:01; Status DC Albuterol/ Ipratropium (Duoneb) 3 ml RTQID NEB Last administered on 12/15/16 11:17; Start 12/07/16 at 12:00 Midazolam HCl 100 ml @ 0 mls/hr CONT PRN IV SEE I/O RECORD Last administered on 12/07/16 10:29; Start 12/07/16 at 10:15; Stop 12/13/16 at 20:41; Status DC Fentanyl Citrate (Fentanyl 2ml Vial) 25 mcg PRN Q1HR PRN IV PAIN Last administered on 12/15/16 00:34; Start 12/07/16 at 10:45 Pantoprazole Sodium (Protonix Vial) 40 mg DAILYAC IVP ; Start 12/07/16 at 17:00 ; Status Cancel Vancomycin HCl 1.25 gm/Sodium Chloride 250 ml @ 167 mls/hr Q12H IV Last administered on 12/13/16 18:25; Start 12/08/16 at 06:00; Stop 12/13/16 at 18:54 ; Status DC Vancomycin HCl 1 each 1X ONCE MC ; Start 12/08/16 at 17:30; Stop 12/08/16 at 17 :31; Status DC Vancomycin HCl 1 gm/Sodium Chloride 250 ml @ 250 mls/hr Q12H IV ; Start at 18:00; Status Cancel Chlorhexidine Gluconate (Peridex) 15 ml BID SWSP ; Start 12/09/16 at 21:00; Stop 12/10/16 at 07:23; Status DC Hydrocortisone Sodium Succinate (Solu-CORTEF) 100 mg Q12HR IV Last administered on 12/14/16 08:53; Start 12/09/16 at 21:00; Stop 12/14/16 at 16:52 ; Status DC Amino Acids/ Glycerin/ Electrolytes 1,000 ml @ 40 mls/hr Q24H IV Last administered on 12/09/16 17:56; Start 12/09/16 at 17:00; Stop 12/10/16 at 14:16 ; Status DC Alprazolam (Xanax) 0.25 mg DAILY PO Last administered on 12/15/16 08:41; Start 12/10/16 at 09:00 Bupropion HCl (Wellbutrin) 100 mg BID PO Last administered on 12/15/16 08:41; Start 12/09/16 at 21:00 Gabapentin (Neurontin) 300 mg BID PO ; Start 12/09/16 at 21:00; Status Cancel Ropinirole HCl (Requip) 0.25 mg QHS PO Last administered on 12/12/16 21:09; Start 12/09/16 at 21:00 Pregabalin (Lyrica) 150 mg DAILY PO Last administered on 12/15/16 08:41; Start 12/10/16 at 09:00 Epinephrine (S2 Racepinephrine) 0.5 ml 1X ONCE NEB Last administered on 07:45; Start 12/10/16 at 07:45; Stop 12/10/16 at 07:46; Status DC Lorazepam (Ativan) 2 mg 1X ONCE IV Last administered on 12/10/16 08:33; Start 12/10/16 at 08:00; Stop 12/10/16 at 08:01; Status DC Succinylcholine Chloride (Anectine) 200 mg STK-MED ONCE .ROUTE ; Start 12/10/16 at 10:28; Stop 12/10/16 at 10:29; Status DC Propofol 100 ml @ As Directed STK-MED ONCE IV ; Start 12/10/16 at 10:28; Stop 12/10/16 at 10:29; Status DC Calcium Gluconate (Calcium Gluconate) 1,000 mg 1X ONCE IVP Last administered on 12/10/16 11:41; Start 12/10/16 at 11:30; Stop 12/10/16 at 11:31; Status DC Succinylcholine Chloride (Anectine) 200 mg 1X ONCE IV Last administered on 11:41; Start 12/10/16 at 11:30; Stop 12/10/16 at 11:31; Status DC Propofol 100 ml @ 0 mls/hr CONT PRN IV SEE I/O RECORD Last administered on 12/13 00:57; Start 12/10/16 at 11:30; Stop 12/13/16 at 20:41; Status DC Insulin Aspart (NovoLOG) 0-5 UNITS TIDWMEALS SQ ; Start 12/11/16 at 08:00; Stop 12/11/16 at 08:00; Status DC Dextrose (Dextrose 50%-Water Syringe) 12.5 gm PRN Q15MIN PRN IV SEE COMMENTS; Start 12/10/16 at 20:30 Insulin Aspart (NovoLOG) 0-5 UNITS Q6HRS SQ Last administered on 12/13/16 06: 25; Start 12/11/16 at 00:00 Chlorhexidine Gluconate (Peridex) 15 ml BID MM Last administered on 12/13/16 09:46; Start 12/11/16 at 21:00; Stop 12/13/16 at 20:41; Status DC Fentanyl Citrate (Fentanyl 2ml Vial) 25 mcg PRN Q5MIN PRN IV MILD PAIN; Start 12/12/16 at 07:00; Stop 12/13/16 at 06:59; Status DC Fentanyl Citrate (Fentanyl 2ml Vial) 50 mcg PRN Q5MIN PRN IV MODERATE PAIN; Start 12/12/16 at 07:00; Stop 12/13/16 at 06:59; Status DC Morphine Sulfate 1 mg PRN Q10MIN PRN IV SEVERE PAIN; Start 12/12/16 at 07:00; Stop 12/13/16 at 06:59; Status DC Ringer's Solution 1,000 ml @ 30 mls/hr Q24H IV ; Start 12/12/16 at 07:00; Stop 12/12/16 at 18:59; Status DC Lidocaine HCl 2 ml PRN 1X PRN ID PRIOR TO IV START; Start 12/12/16 at 07:00; Stop 12/13/16 at 06:59; Status DC Hydromorphone HCl (Dilaudid) 0.5 mg PRN Q10MIN PRN IV SEV PAIN, Second choice; Start 12/12/16 at 07:00; Stop 12/13/16 at 06:59; Status DC Prochlorperazine Edisylate (Compazine) 5 mg PACU PRN PRN IV NAUSEA, MRX1; Start 12/12/16 at 07:00; Stop 12/13/16 at 06:59; Status DC Lidocaine HCl (Lidocaine Pf 2% Vial) 5 ml STK-MED ONCE .ROUTE ; Start 12/12/16 at 08:15; Stop 12/12/16 at 08:16; Status DC Propofol 0 ml @ As Directed STK-MED ONCE IV ; Start 12/12/16 at 08:15; Stop at 08:16; Status DC Ondansetron HCl (Zofran) 4 mg PRN Q6HRS PRN IV NAUSEA/VOMITING Last administered on 12/14/16 01:41; Start 12/12/16 at 19:00 Acetaminophen (Tylenol) 650 mg PRN Q6HRS PRN PEG MILD PAIN / TEMP; Start at 08:30 Vancomycin HCl 1 each 1X ONCE MC Last administered on 12/13/16 10:00; Start 12/13/16 at 10:00; Stop 12/13/16 at 10:01; Status DC Furosemide (Lasix) 40 mg 1X ONCE IVP Last administered on 12/13/16 11:31; Start 12/13/16 at 11:15; Stop 12/13/16 at 11:16; Status DC Amino Acids/ Glycerin/ Electrolytes 1,000 ml @ 75 mls/hr [id number] IV Last administered on 12/15/16 04:25; Start 12/13/16 at 21:00; Stop 12/15/16 at 10:33 ; Status DC Vancomycin HCl 1 each 1X ONCE MC Last administered on 12/14/16 09:00; Start 12/14/16 at 09:00; Stop 12/14/16 at 09:01; Status DC Vancomycin HCl 1 each 1X ONCE MC ; Start 12/15/16 at 06:00; Stop 12/15/16 at 06 :01; Status Cancel Vancomycin HCl 1 each 1X ONCE MC Last administered on 12/15/16 06:00; Start 12/15/16 at 06:00; Stop 12/15/16 at 06:01; Status DC Alteplase, Recombinant (Cathflo) 2 mg 1X ONCE INT CAT Last administered on 14:58; Start 12/14/16 at 14:30; Stop 12/14/16 at 14:34; Status DC Hydrocortisone Sodium Succinate (Solu-CORTEF) 100 mg DAILY IV Last administered on 12/15/16 08:41; Start 12/15/16 at 09:00 Haloperidol Lactate (Haldol) 2.5 mg PRN Q4HRS PRN IVP AGITATION Last administered on 12/15/16 06:42; Start 12/15/16 at 06:45 Lansoprazole (Prevacid) 30 mg DAILYAC FT ; Start 12/16/16 at 07:30 Active Scripts Active Oxycodone Hcl 5 Mg Tablet 5 Mg PO PRN Q6HRS PRN Reported Albuterol Sulfate Neb Soln (Albuterol Sulfate) 1.25 Mg/3 Ml Vial.neb 1 Vial NEB Q6HRS Ranitidine Hcl 150 Mg Capsule 75 Mg PO DAILY Ondansetron Hcl 8 Mg Tablet 8 Mg PO DAILY Azithromycin Tablet (Azithromycin) 250 Mg Tablet 250 Mg PO DAILY Bupropion Hcl 100 Mg Tablet 100 Mg PO BID Nasal Allergy Independence (Cromolyn Sodium) 13 Ml Independence.pump 13 Ml NS DAILY Gabapentin 300 Mg Capsule 300 Mg PO BID Hydroxyzine Hcl 25 Mg Tablet 25 Mg PO DAILY Nystatin 15 Gm Cream..g. 15 Gm TP BID Duloxetine Hcl 60 Mg Capsule.dr 60 Mg PO DAILY Clonidine Hcl 0.1 Mg Tablet 0.1 Mg PO DAILY Lisinopril 20 Mg Tablet 20 Mg PO DAILY Famciclovir 125 Mg Tablet 125 Mg PO DAILY Ropinirole Hcl 0.25 Mg Tablet 0.25 Mg PO DAILY Hydroxychloroquine Sulfate 200 Mg Tablet 200 Mg PO DAILY Lyrica (Pregabalin) 150 Mg Capsule 150 Mg PO DAILY Furosemide 20 Mg Tablet 20 Mg PO DAILY Alprazolam 0.25 Mg Tablet 0.25 Mg PO Oxycodone Hcl 5 Mg Tablet 5 Mg PO PRN Q4HRS PRN Ibuprofen 400 Mg Tablet 400 Mg PO PRN DAILY PRN Multivitamins (Multivitamin) 1 Each Tablet 1 Each PO DAILY Oxycodone-Acetaminophen 10-325 (Oxycodone Hcl/Acetaminophen) 1 Each Tablet 1 Each PO PRN Q4-6HRS PRN Plaquenil (Hydroxychloroquine Sulfate) 200 Mg Tablet 200 Mg PO BID Vitals/I & O Vital Sign - Last 24 Hours 12/14/16 12/14/16 12/14/16 12/14/16 14:00 15:00 16:00 16:00 Temp 99.1 99.1 Pulse 93 96 97 Resp 19 24 16 B/P (MAP) 168/94 (118) 173/93 (119) 171/86 (114) Pulse Ox 100 98 99 O2 Delivery Nasal Cannula Nasal Cannula Nasal Cannula Nasal Cannula O2 Flow Rate 2.0 2.0 2.0 2.0 12/14/16 12/14/16 12/14/16 12/14/16 16:23 17:00 18:00 19:00 Temp 98.0 98.0 Pulse 96 96 96 Resp 22 22 26 B/P (MAP) 169/85 (113) 172/88 (116) 177/100 (125) Pulse Ox 98 96 97 97 O2 Delivery Nasal Cannula Nasal Cannula Nasal Cannula Nasal Cannula O2 Flow Rate 2.0 2.0 2.0 2.0 12/14/16 12/14/16 12/14/16 12/14/16 19:25 19:41 20:00 20:00 Pulse 100 100 Resp 12 B/P (MAP) 177/100 173/86 (115) Pulse Ox 96 99 O2 Delivery Nasal Cannula Nasal Cannula Nasal Cannula O2 Flow Rate 2.0 2.0 2.0 12/14/16 12/14/16 12/14/16 12/14/16 21:00 21:27 21:57 22:00 Temp Pulse 103 97 Resp 13 13 13 16 B/P (MAP) 155/81 (105) 167/84 (111) Pulse Ox 98 98 98 97 O2 Delivery Nasal Cannula Nasal Cannula Nasal Cannula Nasal Cannula O2 Flow Rate 2.0 2.0 2.0 2.0 12/14/16 12/14/16 12/15/16 12/15/16 23:00 23:33 00:00 00:00 Temp 97.9 97.9 Pulse 98 100 112 Resp 14 13 B/P (MAP) 175/90 (118) 186/91 184/98 (126) Pulse Ox 98 98 O2 Delivery Nasal Cannula Nasal Cannula Nasal Cannula O2 Flow Rate 2.0 2.0 2.0 12/15/16 12/15/16 12/15/16 12/15/16 00:18 00:34 01:00 02:00 Pulse 104 100 Resp 16 15 14 B/P (MAP) 159/60 (93) 148/85 (106) Pulse Ox 99 98 98 98 O2 Delivery Nasal Cannula Nasal Cannula Nasal Cannula Nasal Cannula O2 Flow Rate 2.0 2.0 2.0 2.0 12/15/16 12/15/16 12/15/16 12/15/16 03:00 04:00 04:00 05:00 Pulse 96 96 96 Resp 14 24 22 B/P (MAP) 158/88 (111) 158/89 (112) 179/98 (125) Pulse Ox 98 98 91 O2 Delivery Nasal Cannula Nasal Cannula Nasal Cannula Nasal Cannula O2 Flow Rate 2.0 2.0 2.0 2.0 12/15/16 12/15/16 12/15/16 12/15/16 06:06 06:40 07:00 07:45 Pulse 128 128 121 Resp 26 27 B/P (MAP) 179/98 177/106 (129) 180/86 (117) Pulse Ox 90 97 93 O2 Delivery Nasal Cannula Nasal Cannula Nasal Cannula O2 Flow Rate 2.0 2.0 2.0 12/15/16 12/15/16 12/15/16 12/15/16 08:00 08:00 09:00 10:00 Temp 97.7 97.7 Pulse 117 118 114 Resp 12 17 16 B/P (MAP) 158/81 (106) 160/83 (108) 157/91 (113) Pulse Ox 95 95 95 O2 Delivery Nasal Cannula Nasal Cannula Nasal Cannula Nasal Cannula O2 Flow Rate 2.0 2.0 2.0 2.0 12/15/16 12/15/16 11:00 11:18 Pulse 110 Resp 15 B/P (MAP) 160/96 (117) Pulse Ox 96 96 O2 Delivery Nasal Cannula Nasal Cannula O2 Flow Rate 2.0 2.0 Intake and Output 12/14/16 12/14/16 12/15/16 15:00 23:00 07:00 Intake Total 802 ml 700 ml Output Total 745 ml 710 ml 165 ml Balance -745 ml 92 ml 535 ml Nutrition Consultation Dietary Evaluation: Recommendations by RD: Increase Calorie Intake Comments: Contiue the TF's with Diabetisource AC, goal rate 60 ml/hr start at 20 ml/hr, increase by 20 ml/hr q8h to goal flushes 225 cc q6h Expected Outcomes/Goals: tolerate the TF's at goal rate- goal met meet 75% estimated nutrition needs- goal met Malnutrition Findings: Reduced Rotary Bar Operator Strength: N/A Reduced Rotary Bar Operator Strength (Non-Sev: N/A Malnutrition related to morbid: No Weight Status: Obese ELLE CLARK MD Dec 15, 2016 13:25
[2016-12-15] MEDS: VANCOMYCIN PER PHARMACY MC PRN (15:18)
[2016-12-15] MEDS: rOPINIRole 0.25 MG TABLET. PO SCH (20:34)
[2016-12-15] MEDS ORDERED: VANCOMYCIN 1 GM in IV NORMAL SALINE 250ML 250 ML IV SCH (21:00)
[2016-12-15] MEDS: MORPHINE SULFATE 2 MG/ML DISP.SYRIN. IV PRN (21:15)
[2016-12-16] VITALS (26 sets, daily range): BP systolic 107–217; BP diastolic 58–90
[2016-12-16] MEDS: ZOLPIDEM 5 MG TABLET. PO PRN (00:17)
[2016-12-16] MEDS: INSULIN ASPART 300 UNITS/3 ML INSULN.PEN SQ SCH ×4 (00:36→17:55)
[2016-12-16] MEDS: ALBUTEROL SULFATE 2.5 MG/3 ML NEBU. NEB PRN (00:43)
[2016-12-16] MEDS: MORPHINE SULFATE 2 MG/ML DISP.SYRIN. IV PRN (01:19)
[2016-12-16 02:16] LABS: HCO3 ABG 25 mmol/L (21-28); PO2 ABG 144 mmHg (75-108); SAT O2 ABG 98 % (92-99)
[2016-12-16] MEDS ORDERED: PROPOFOL 100 ML IV ONE (02:34)
[2016-12-16] MEDS ORDERED: SUCCINYLCHOLINE 200 MG/10 ML VIAL. ONE ×2 (02:57)
[2016-12-16] MEDS ORDERED: ETOMIDATE 20 MG/10 ML VIAL. IV ONE (02:58)
[2016-12-16] MEDS ORDERED: PROPOFOL 10 MG/ML (100ML) VIAL. IV ONE (03:00)
--- NOTE | 2016-12-16 04:14 | RAD ---
EXAM: CHEST AP ONLY HISTORY: NEW INTUBATION, RESPIRATORY DISTRESS COMPARISON: December 13, 2016 TECHNIQUE: Portable semiupright AP view of the chest is obtained. FINDINGS: Distal tip of the ET tube appears similar in position, approximately 3 cm above the level of the nunu. The metallic, distal tip of a weighted Dobbhoff feeding tube projects over the level of the distal esophagus/GE junction. Left chest [id number] appears stable in position. Diffuse ground glass opacities are redemonstrated throughout both lungs, similar to minimally progressed when compared to the previous exam. Small bilateral pleural effusions may be present. No pneumothorax is seen. Cardiomediastinal silhouette remains stable in size. There is increased prominence of the central pulmonary vasculature. Visualized osseous structures and overlying soft tissues demonstrate no acute interval change. IMPRESSION: 1. Similar to slight progression of bilateral groundglass opacities suggesting worsening edema or infiltrate. Central pulmonary vascular congestion is progressed. 2. Distal tip of gastric tube projects over the distal esophagus/GE junction, recommend advancement. Electronically signed by: Michelle Quiroz MD (12/16/2016 4:11 AM)
[2016-12-16] MEDS ORDERED: PROPOFOL 100 ML IV PRN (04:15)
[2016-12-16 04:34] LABS: FIO2 ABG 60; PCO2 ABG 66 mmHg (35-46); PH ABG 7.19 (7.35-7.45)
[2016-12-16 05:02] LABS: HCO3 ABG 22 mmol/L (21-28); PCO2 ABG 43 mmHg (35-46); PH ABG 7.33 (7.35-7.45); PO2 ABG 264 mmHg (75-108); SAT O2 ABG 99 % (92-99)
[2016-12-16 05:03] LABS: FIO2 ABG 70
[2016-12-16] MEDS: PROPOFOL 100 ML IV PRN ×4 (06:45→21:12)
[2016-12-16] MEDS ORDERED: LANSOPRAZOLE 30 MG TAB.RAP.DR FT SCH (07:30)
[2016-12-16 08:03] LABS: GFR 69.7; POTASSIUM 3.7 mmol/L (3.5-5.1)
[2016-12-16 08:13] LABS: BASO % 0 % (0-3); EOS % 0 % (0-3); HEMATOCRIT 22.7 % (36.0-47.0); HEMOGLOBIN 7.5 g/dL (12.0-15.5); LYMPH % 10 % (24-48); MEAN CORPUSCULAR HEMOGLOBIN 30 pg (25-35); MEAN CORPUSCULAR HGB CONC 33 g/dL (31-37); MEAN CORPUSCULAR VOLUME 91 fL (79-100); MONO % 4 % (0-9); NEUT % 86 % (31-73); PLATELET COUNT 50 x10^3/uL (140-400); RED CELL DISTRIBUTION WIDTH 15.5 % (11.5-14.5); WHITE BLOOD COUNT 5.4 x10^3/uL (4.0-11.0)
[2016-12-16 08:14] LABS: LYMPH # 0.5 x10^3/uL (1.0-4.8)
[2016-12-16] MEDS: IPRATRPIUM/ALBUTEROL 0.5/2.5MG 3 ML NEBU. NEB SCH ×4 (08:22→19:26)
--- NOTE | 2016-12-16 08:54 | PDOC ---
PROGRESS NOTES Chief Complaint Chief Complaint 1. Severe sepsis with Shock, s/p pressors 2. MRSA bacteremia, + nares 2. Pancytopenia: background of sepsis 3. Acute respiratory failure RE intubation 12/11 - extubated 12/13, RE INTUBATED 12/15 4. Malnutrition: MOderate - to severe 5. Lupus, immuno suppressive 6. Recently treated urinary tract infection, Escherichia coli. 7. Hyponatremia.:resolved 8. Mild hyperkalemia:resolved. \ 9. Hx breast CA 10. MEtabolic encephalopathy - multifactorial 12/14 History of Present Illness History of Present Illness Seen in ICU Extubated 12/13, transferred to 6th floor but had stridor overnight, and needed to be RE iNTUABTED again the SECOND time this admission Pancytopenia, hx breast CA, sepsis - heme on on - stable so far Initial plans [facility] - but now a very poor candidate and prognsois very poor PALLIATIVE is in the horizon CXR yesterday: IMPRESSION: 1. Similar to slight progression of bilateral groundglass opacities suggesting worsening edema or infiltrate. Central pulmonary vascular congestion is progressed. 2. Distal tip of gastric tube projects over the distal esophagus/GE junction, recommend advancement. CARds on case - no lasix onboard I would diurese for now - keep close eye on creatinine (1.0) NA 147 0-=start water flushes EARLIER ENTRY Planned for [facility] (possibly nextw marlene) G[facility] etc [facility] B[facility] etc - ID on board Over all prog poor, weak heart, bacteremia, limited reserve - she knows PLAn: VENt bundle LAbs AddenduM: echo <Conclusion> The left ventricular systolic function is normal and the ejection fraction is 60 % Transmitral Doppler flow pattern is Grade I-abnormal relaxation pattern. The left atrium is mildly dilated. The right atrium size is normal. The aortic valve is calcified but opens well. Doppler and Color-flow revealed mild mitral regurgitation. The mitral valve is normal in structure Mitral annular calcification is mild. Doppler and Color Flow revealed mild tricuspid regurgitation. There is mild pulmonary hypertension. The PA pressure was estimated at 34 mmHg. Doppler and Color Flow revealed trace pulmonic valvular regurgitation. There is a trace of pericardial effusion. PLAN:Start water flushes per NGT LAsix 40 IV qdaily first dose now Involve palliative - might not be able to get off vent LAbs dominick AM Overall prog poor Vitals Vitals Vital Signs Date Time Temp Pulse Resp B/P (MAP) Pulse Ox O2 Delivery O2 Flow Rate FiO2 12/16/16 07:08 100 Ventilator 12/16/16 06:02 88 22 136/76 (96) 12/16/16 05:00 97.9 97.9 12/16/16 04:00 Physical Exam General: Alert, Oriented X3 Heart: Normal S1, Normal S2 Lungs: Clear, Wheezing Abdomen: Normal bowel sounds, Soft Extremities: No clubbing Skin: Other Labs LABS Laboratory Tests Test 12/15/16 16:58 12/16/16 00:32 12/16/16 02:15 12/16/16 05:01 Glucose (Fingerstick) 138 mg/dL (70-99) 146 mg/dL (70-99) O2 Saturation 98 % (92-99) 99 % (92-99) Arterial Blood pH 7.19 (7.35-7.45) 7.33 (7.35-7.45) Arterial Blood pCO2 at Patient Temp 66 mmHg (35-46) 43 mmHg (35-46) Arterial Blood pO2 at Patient Temp 144 mmHg (75-108) 264 mmHg (75-108) Arterial Blood HCO3 25 mmol/L (21-28) 22 mmol/L (21-28) Arterial Blood Base Excess -5 mmol/L (-3-3) -3 mmol/L (-3-3) FiO2 60 70 Test 12/16/16 06:50 12/16/16 07:10 Glucose (Fingerstick) 124 mg/dL (70-99) White Blood Count 5.4 x10^3/uL (4.0-11.0) Red Blood Count 2.50 x10^6/uL (3.50-5.40) Hemoglobin 7.5 g/dL (12.0-15.5) Hematocrit 22.7 % (36.0-47.0) Mean Corpuscular Volume 91 fL (79-100) Mean Corpuscular Hemoglobin 30 pg (25-35) Mean Corpuscular Hemoglobin Concent 33 g/dL (31-37) Red Cell Distribution Width 15.5 % (11.5-14.5) Platelet Count 50 x10^3/uL (140-400) Neutrophils (%) (Auto) 86 % (31-73) Lymphocytes (%) (Auto) 10 % (24-48) Monocytes (%) (Auto) 4 % (0-9) Eosinophils (%) (Auto) 0 % (0-3) Basophils (%) (Auto) 0 % (0-3) Neutrophils # (Auto) 4.6 x10^3uL (1.8-7.7) Lymphocytes # (Auto) 0.5 x10^3/uL (1.0-4.8) Monocytes # (Auto) 0.2 x10^3/uL (0.0-1.1) Eosinophils # (Auto) 0.0 x10^3/uL (0.0-0.7) Basophils # (Auto) 0.0 x10^3/uL (0.0-0.2) Sodium Level 147 mmol/L (136-145) Potassium Level 3.7 mmol/L (3.5-5.1) Chloride Level 115 mmol/L (98-107) Carbon Dioxide Level 25 mmol/L (21-32) Anion Gap 7 (6-14) Blood Urea Nitrogen 60 mg/dL (7-20) Creatinine 1.0 mg/dL (0.6-1.0) Estimated GFR (Cockcroft-Gault) 69.7 Glucose Level 135 mg/dL (70-99) Calcium Level 9.0 mg/dL (8.5-10.1) Random Vancomycin Level 13.5 mcg/mL Review of Systems Review of Systems intubated,s edated Assessment and Plan Assessmemt and Plan Problems Medical Problems: (1) Respiratory failure Status: Acute Problems: Comment Review of Relevant I have reviewed the following items anselmo (where applicable) has been applied. Labs Laboratory Tests Test 12/14/16 09:05 12/14/16 14:56 12/14/16 17:07 12/14/16 22:30 Random Vancomycin Level 36.6 mcg/mL Glucose (Fingerstick) 141 mg/dL (70-99) 133 mg/dL (70-99) Vancomycin Level Trough 25.4 mcg/mL (10.0-20.0) Vancomycin Last Dose Date Vancomycin Last Dose Time 0600 Test 12/14/16 23:06 12/15/16 04:30 12/15/16 06:10 12/15/16 16:58 Glucose (Fingerstick) 114 mg/dL (70-99) 136 mg/dL (70-99) 138 mg/dL (70-99) Random Vancomycin Level 23.5 mcg/mL Test 12/16/16 00:32 12/16/16 02:15 12/16/16 05:01 12/16/16 06:50 Glucose (Fingerstick) 146 mg/dL (70-99) 124 mg/dL (70-99) O2 Saturation 98 % (92-99) 99 % (92-99) Arterial Blood pH 7.19 (7.35-7.45) 7.33 (7.35-7.45) Arterial Blood pCO2 at Patient Temp 66 mmHg (35-46) 43 mmHg (35-46) Arterial Blood pO2 at Patient Temp 144 mmHg (75-108) 264 mmHg (75-108) Arterial Blood HCO3 25 mmol/L (21-28) 22 mmol/L (21-28) Arterial Blood Base Excess -5 mmol/L (-3-3) -3 mmol/L (-3-3) FiO2 60 70 Test 12/16/16 07:10 White Blood Count 5.4 x10^3/uL (4.0-11.0) Red Blood Count 2.50 x10^6/uL (3.50-5.40) Hemoglobin 7.5 g/dL (12.0-15.5) Hematocrit 22.7 % (36.0-47.0) Mean Corpuscular Volume 91 fL (79-100) Mean Corpuscular Hemoglobin 30 pg (25-35) Mean Corpuscular Hemoglobin Concent 33 g/dL (31-37) Red Cell Distribution Width 15.5 % (11.5-14.5) Platelet Count 50 x10^3/uL (140-400) Neutrophils (%) (Auto) 86 % (31-73) Lymphocytes (%) (Auto) 10 % (24-48) Monocytes (%) (Auto) 4 % (0-9) Eosinophils (%) (Auto) 0 % (0-3) Basophils (%) (Auto) 0 % (0-3) Neutrophils # (Auto) 4.6 x10^3uL (1.8-7.7) Lymphocytes # (Auto) 0.5 x10^3/uL (1.0-4.8) Monocytes # (Auto) 0.2 x10^3/uL (0.0-1.1) Eosinophils # (Auto) 0.0 x10^3/uL (0.0-0.7) Basophils # (Auto) 0.0 x10^3/uL (0.0-0.2) Sodium Level 147 mmol/L (136-145) Potassium Level 3.7 mmol/L (3.5-5.1) Chloride Level 115 mmol/L (98-107) Carbon Dioxide Level 25 mmol/L (21-32) Anion Gap 7 (6-14) Blood Urea Nitrogen 60 mg/dL (7-20) Creatinine 1.0 mg/dL (0.6-1.0) Estimated GFR (Cockcroft-Gault) 69.7 Glucose Level 135 mg/dL (70-99) Calcium Level 9.0 mg/dL (8.5-10.1) Random Vancomycin Level 13.5 mcg/mL Laboratory Tests Test 12/15/16 16:58 12/16/16 00:32 12/16/16 02:15 12/16/16 05:01 Glucose (Fingerstick) 138 mg/dL (70-99) 146 mg/dL (70-99) O2 Saturation 98 % (92-99) 99 % (92-99) Arterial Blood pH 7.19 (7.35-7.45) 7.33 (7.35-7.45) Arterial Blood pCO2 at Patient Temp 66 mmHg (35-46) 43 mmHg (35-46) Arterial Blood pO2 at Patient Temp 144 mmHg (75-108) 264 mmHg (75-108) Arterial Blood HCO3 25 mmol/L (21-28) 22 mmol/L (21-28) Arterial Blood Base Excess -5 mmol/L (-3-3) -3 mmol/L (-3-3) FiO2 60 70 Test 12/16/16 06:50 12/16/16 07:10 Glucose (Fingerstick) 124 mg/dL (70-99) White Blood Count 5.4 x10^3/uL (4.0-11.0) Red Blood Count 2.50 x10^6/uL (3.50-5.40) Hemoglobin 7.5 g/dL (12.0-15.5) Hematocrit 22.7 % (36.0-47.0) Mean Corpuscular Volume 91 fL (79-100) Mean Corpuscular Hemoglobin 30 pg (25-35) Mean Corpuscular Hemoglobin Concent 33 g/dL (31-37) Red Cell Distribution Width 15.5 % (11.5-14.5) Platelet Count 50 x10^3/uL (140-400) Neutrophils (%) (Auto) 86 % (31-73) Lymphocytes (%) (Auto) 10 % (24-48) Monocytes (%) (Auto) 4 % (0-9) Eosinophils (%) (Auto) 0 % (0-3) Basophils (%) (Auto) 0 % (0-3) Neutrophils # (Auto) 4.6 x10^3uL (1.8-7.7) Lymphocytes # (Auto) 0.5 x10^3/uL (1.0-4.8) Monocytes # (Auto) 0.2 x10^3/uL (0.0-1.1) Eosinophils # (Auto) 0.0 x10^3/uL (0.0-0.7) Basophils # (Auto) 0.0 x10^3/uL (0.0-0.2) Sodium Level 147 mmol/L (136-145) Potassium Level 3.7 mmol/L (3.5-5.1) Chloride Level 115 mmol/L (98-107) Carbon Dioxide Level 25 mmol/L (21-32) Anion Gap 7 (6-14) Blood Urea Nitrogen 60 mg/dL (7-20) Creatinine 1.0 mg/dL (0.6-1.0) Estimated GFR (Cockcroft-Gault) 69.7 Glucose Level 135 mg/dL (70-99) Calcium Level 9.0 mg/dL (8.5-10.1) Random Vancomycin Level 13.5 mcg/mL Microbiology 12/14/16 Blood Culture - Preliminary, Resulted NO GROWTH AFTER 1 DAY 12/09/16 Stool Culture - Final, Complete 12/09/16 Stool Culture Result 1 (LUCINA) - Final, Complete 12/09/16 Campylobacter Antigen Assay - Final, Complete 12/09/16 Campylobactor Result 1 - Final, Complete 12/09/16 Shiga Toxin Test - Final, Complete 12/08/16 Sputum Culture - Final, Complete 12/08/16 Sputum Result 1 - Final, Complete 12/08/16 Antimicrobic Susceptibility - Final, Complete 12/06/16 Urine Culture - Final, Complete 12/06/16 Urine Culture Result 1 (LUCINA) - Final, Complete Medications Current Medications Sodium Chloride 1,000 ml @ 1,000 mls/hr 1X ONCE IV Last administered on 16:18; Start 12/06/16 at 16:15; Stop 12/06/16 at 17:14; Status DC Vancomycin HCl (Vanco Per Pharmacy) 1 each PRN DAILY PRN MC SEE COMMENTS Last administered on 12/15/16 15:18; Start 12/06/16 at 17:00 Levofloxacin/ Dextrose 150 ml @ 100 mls/hr 1X ONCE IV Last administered on 20:04; Start 12/06/16 at 17:00; Stop 12/06/16 at 18:29; Status DC Vancomycin HCl 2 gm/Sodium Chloride 500 ml @ 250 mls/hr 1X ONCE IV Last administered on 12/06/16 17:11; Start 12/06/16 at 17:00; Stop 12/06/16 at 18:59 ; Status DC Sodium Chloride 1,000 ml @ 1,000 mls/hr 1X ONCE IV Last administered on 17:09; Start 12/06/16 at 17:00; Stop 12/06/16 at 17:59; Status DC Meropenem 500 mg/ Sodium Chloride 50 ml @ 100 mls/hr Q8HRS IV Last administered on 12/10/16 07:30; Start 12/06/16 at 18:00; Stop 12/10/16 at 08:13 ; Status DC Dopamine HCl/ Dextrose 250 ml @ 16.414 mls/ hr 1X ONCE IV Last administered on 12/06/16 17:41; Start 12/06/16 at 17:15; Stop 12/07/16 at 08:28; Status DC Etomidate (Amidate) 20 mg 1X ONCE IV Last administered on 12/06/16 17:19; Start 12/06/16 at 17:15; Stop 12/06/16 at 17:17; Status DC Succinylcholine Chloride (Anectine) 100 mg 1X ONCE IV Last administered on 17:20; Start 12/06/16 at 17:15; Stop 12/06/16 at 17:17; Status DC Vancomycin HCl 1.25 gm/Sodium Chloride 250 ml @ 167 mls/hr Q24H IV Last administered on 12/07/16 18:39; Start 12/07/16 at 17:00; Stop 12/07/16 at 23:00 ; Status DC Vancomycin HCl 1 each 1X ONCE MC ; Start 12/07/16 at 16:30; Stop 12/07/16 at 16 :31; Status Cancel Midazolam HCl 100 ml @ As Directed STK-MED ONCE IV ; Start 12/06/16 at 17:36; Stop 12/06/16 at 17:37; Status DC Midazolam HCl (Versed) 5 mg STK-MED ONCE .ROUTE ; Start 12/06/16 at 17:37; Stop 12/06/16 at 17:38; Status DC Midazolam HCl (Versed) 5 mg PRN Q10MIN PRN IV SEDATION; Start 12/06/16 at 17:45 Hydrocortisone Sodium Succinate (Solu-CORTEF) 100 mg Q8HRS IV Last administered on 12/09/16 13:55; Start 12/06/16 at 18:30; Stop 12/09/16 at 16:21 ; Status DC Norepinephrine Bitartrate 16 mg/ Sodium Chloride 266 ml @ 0 mls/hr CONT PRN IV SEE I/O RECORD; Start 12/06/16 at 19:00; Status UNV Pantoprazole Sodium (Protonix Vial) 40 mg DAILYAC IVP Last administered on 12/15 08:40; Start 12/06/16 at 19:30; Stop 12/15/16 at 10:35; Status DC Acetaminophen (Tylenol) 325 mg PRN Q6HRS PRN PO MILD PAIN / TEMP; Start at 19:00 Hydralazine HCl (Apresoline) 10 mg PRN Q4HRS PRN IVP ELEVATED BP, SEE COMMENTS Last administered on 12/15/16 06:06; Start 12/06/16 at 19:00 Ondansetron HCl (Zofran) 4 mg PRN Q8HRS PRN IV NAUSEA/VOMITING; Start 12/06/16 at 19:00; Stop 12/12/16 at 08:31; Status DC Albuterol Sulfate (Ventolin Neb Soln) 2.5 mg PRN Q4HRS PRN NEB SHORTNESS OF BREATH Last administered on 12/16/16 00:43; Start 12/06/16 at 19:00 Norepinephrine Bitartrate 250 ml @ 1.875 mls/ hr CONT PRN IV SEE I/O RECORD Last administered on 12/06/16 19:55; Start 12/06/16 at 19:00; Stop 12/15/16 at 10:33; Status DC Sodium Chloride 1,000 ml @ 1,000 mls/hr 1X ONCE IV Last administered on 19:56; Start 12/06/16 at 19:15; Stop 12/06/16 at 20:14; Status DC Sodium Chloride 1,000 ml @ 75 mls/hr [id number] IV Last administered on 21:55; Start 12/06/16 at 19:15; Stop 12/09/16 at 18:44; Status DC Pneumococcal Polyvalent Vaccine (Do NOT chart on this placeholder) 1 each PRN DAILY PRN MC PT UNABLE TO RESPOND; Start 12/07/16 at 09:30; Status Cancel Pneumococcal Polyvalent Vaccine (Pneumovax 23) 0.5 ml ONCE ONCE VAX IM ; Start 12/08/16 at 09:00; Stop 12/08/16 at 09:01; Status DC Albuterol/ Ipratropium (Duoneb) 3 ml RTQID NEB Last administered on 12/16/16 08:22; Start 12/07/16 at 12:00 Midazolam HCl 100 ml @ 0 mls/hr CONT PRN IV SEE I/O RECORD Last administered on 12/07/16 10:29; Start 12/07/16 at 10:15; Stop 12/13/16 at 20:41; Status DC Fentanyl Citrate (Fentanyl 2ml Vial) 25 mcg PRN Q1HR PRN IV PAIN Last administered on 12/15/16 00:34; Start 12/07/16 at 10:45 Pantoprazole Sodium (Protonix Vial) 40 mg DAILYAC IVP ; Start 12/07/16 at 17:00 ; Status Cancel Vancomycin HCl 1.25 gm/Sodium Chloride 250 ml @ 167 mls/hr Q12H IV Last administered on 12/13/16 18:25; Start 12/08/16 at 06:00; Stop 12/13/16 at 18:54 ; Status DC Vancomycin HCl 1 each 1X ONCE MC ; Start 12/08/16 at 17:30; Stop 12/08/16 at 17 :31; Status DC Vancomycin HCl 1 gm/Sodium Chloride 250 ml @ 250 mls/hr Q12H IV ; Start at 18:00; Status Cancel Chlorhexidine Gluconate (Peridex) 15 ml BID SWSP ; Start 12/09/16 at 21:00; Stop 12/10/16 at 07:23; Status DC Hydrocortisone Sodium Succinate (Solu-CORTEF) 100 mg Q12HR IV Last administered on 12/14/16 08:53; Start 12/09/16 at 21:00; Stop 12/14/16 at 16:52 ; Status DC Amino Acids/ Glycerin/ Electrolytes 1,000 ml @ 40 mls/hr Q24H IV Last administered on 12/09/16 17:56; Start 12/09/16 at 17:00; Stop 12/10/16 at 14:16 ; Status DC Alprazolam (Xanax) 0.25 mg DAILY PO Last administered on 12/15/16 08:41; Start 12/10/16 at 09:00 Bupropion HCl (Wellbutrin) 100 mg BID PO Last administered on 12/15/16 20:34; Start 12/09/16 at 21:00 Gabapentin (Neurontin) 300 mg BID PO ; Start 12/09/16 at 21:00; Status Cancel Ropinirole HCl (Requip) 0.25 mg QHS PO Last administered on 12/15/16 20:34; Start 12/09/16 at 21:00 Pregabalin (Lyrica) 150 mg DAILY PO Last administered on 12/15/16 08:41; Start 12/10/16 at 09:00 Epinephrine (S2 Racepinephrine) 0.5 ml 1X ONCE NEB Last administered on 07:45; Start 12/10/16 at 07:45; Stop 12/10/16 at 07:46; Status DC Lorazepam (Ativan) 2 mg 1X ONCE IV Last administered on 12/10/16 08:33; Start 12/10/16 at 08:00; Stop 12/10/16 at 08:01; Status DC Succinylcholine Chloride (Anectine) 200 mg STK-MED ONCE .ROUTE ; Start 12/10/16 at 10:28; Stop 12/10/16 at 10:29; Status DC Propofol 100 ml @ As Directed STK-MED ONCE IV ; Start 12/10/16 at 10:28; Stop 12/10/16 at 10:29; Status DC Calcium Gluconate (Calcium Gluconate) 1,000 mg 1X ONCE IVP Last administered on 12/10/16 11:41; Start 12/10/16 at 11:30; Stop 12/10/16 at 11:31; Status DC Succinylcholine Chloride (Anectine) 200 mg 1X ONCE IV Last administered on 11:41; Start 12/10/16 at 11:30; Stop 12/10/16 at 11:31; Status DC Propofol 100 ml @ 0 mls/hr CONT PRN IV SEE I/O RECORD Last administered on 12/13 00:57; Start 12/10/16 at 11:30; Stop 12/13/16 at 20:41; Status DC Insulin Aspart (NovoLOG) 0-5 UNITS TIDWMEALS SQ ; Start 12/11/16 at 08:00; Stop 12/11/16 at 08:00; Status DC Dextrose (Dextrose 50%-Water Syringe) 12.5 gm PRN Q15MIN PRN IV SEE COMMENTS; Start 12/10/16 at 20:30 Insulin Aspart (NovoLOG) 0-5 UNITS Q6HRS SQ Last administered on 12/13/16 06: 25; Start 12/11/16 at 00:00 Chlorhexidine Gluconate (Peridex) 15 ml BID MM Last administered on 12/13/16 09:46; Start 12/11/16 at 21:00; Stop 12/13/16 at 20:41; Status DC Fentanyl Citrate (Fentanyl 2ml Vial) 25 mcg PRN Q5MIN PRN IV MILD PAIN; Start 12/12/16 at 07:00; Stop 12/13/16 at 06:59; Status DC Fentanyl Citrate (Fentanyl 2ml Vial) 50 mcg PRN Q5MIN PRN IV MODERATE PAIN; Start 12/12/16 at 07:00; Stop 12/13/16 at 06:59; Status DC Morphine Sulfate 1 mg PRN Q10MIN PRN IV SEVERE PAIN; Start 12/12/16 at 07:00; Stop 12/13/16 at 06:59; Status DC Ringer's Solution 1,000 ml @ 30 mls/hr Q24H IV ; Start 12/12/16 at 07:00; Stop 12/12/16 at 18:59; Status DC Lidocaine HCl 2 ml PRN 1X PRN ID PRIOR TO IV START; Start 12/12/16 at 07:00; Stop 12/13/16 at 06:59; Status DC Hydromorphone HCl (Dilaudid) 0.5 mg PRN Q10MIN PRN IV SEV PAIN, Second choice; Start 12/12/16 at 07:00; Stop 12/13/16 at 06:59; Status DC Prochlorperazine Edisylate (Compazine) 5 mg PACU PRN PRN IV NAUSEA, MRX1; Start 12/12/16 at 07:00; Stop 12/13/16 at 06:59; Status DC Lidocaine HCl (Lidocaine Pf 2% Vial) 5 ml STK-MED ONCE .ROUTE ; Start 12/12/16 at 08:15; Stop 12/12/16 at 08:16; Status DC Propofol 0 ml @ As Directed STK-MED ONCE IV ; Start 12/12/16 at 08:15; Stop at 08:16; Status DC Ondansetron HCl (Zofran) 4 mg PRN Q6HRS PRN IV NAUSEA/VOMITING Last administered on 12/14/16 01:41; Start 12/12/16 at 19:00 Acetaminophen (Tylenol) 650 mg PRN Q6HRS PRN PEG MILD PAIN / TEMP Last administered on 12/15/16 17:25; Start 12/12/16 at 08:30 Vancomycin HCl 1 each 1X ONCE MC Last administered on 12/13/16 10:00; Start 12/13/16 at 10:00; Stop 12/13/16 at 10:01; Status DC Furosemide (Lasix) 40 mg 1X ONCE IVP Last administered on 12/13/16 11:31; Start 12/13/16 at 11:15; Stop 12/13/16 at 11:16; Status DC Amino Acids/ Glycerin/ Electrolytes 1,000 ml @ 75 mls/hr [id number] IV Last administered on 12/15/16 04:25; Start 12/13/16 at 21:00; Stop 12/15/16 at 10:33 ; Status DC Vancomycin HCl 1 each 1X ONCE MC Last administered on 12/14/16 09:00; Start 12/14/16 at 09:00; Stop 12/14/16 at 09:01; Status DC Vancomycin HCl 1 each 1X ONCE MC ; Start 12/15/16 at 06:00; Stop 12/15/16 at 06 :01; Status Cancel Vancomycin HCl 1 each 1X ONCE MC Last administered on 12/15/16 06:00; Start 12/15/16 at 06:00; Stop 12/15/16 at 06:01; Status DC Alteplase, Recombinant (Cathflo) 2 mg 1X ONCE INT CAT Last administered on 14:58; Start 12/14/16 at 14:30; Stop 12/14/16 at 14:34; Status DC Hydrocortisone Sodium Succinate (Solu-CORTEF) 100 mg DAILY IV Last administered on 12/15/16 08:41; Start 12/15/16 at 09:00 Haloperidol Lactate (Haldol) 2.5 mg PRN Q4HRS PRN IVP AGITATION Last administered on 12/15/16 20:35; Start 12/15/16 at 06:45 Lansoprazole (Prevacid) 30 mg DAILYAC FT ; Start 12/16/16 at 07:30 Vancomycin HCl 1 gm/Sodium Chloride 250 ml @ 250 mls/hr Q48H IV ; Start at 21:00; Status Cancel Morphine Sulfate 2 mg PRN Q2HR PRN IV SEVERE PAIN Last administered on 01:19; Start 12/15/16 at 21:15 Zolpidem Tartrate (Ambien) 5 mg PRN QHS PRN PO INSOMNIA Last administered on 00:17; Start 12/16/16 at 00:00 Propofol 100 ml @ As Directed STK-MED ONCE IV ; Start 12/16/16 at 02:34; Stop 12/16/16 at 02:35; Status DC Succinylcholine Chloride (Anectine) 200 mg STK-MED ONCE .ROUTE ; Start 12/16/16 at 02:57; Stop 12/16/16 at 02:58; Status DC Succinylcholine Chloride (Anectine) 200 mg STK-MED ONCE .ROUTE ; Start 12/16/16 at 02:57; Stop 12/16/16 at 02:58; Status DC Etomidate (Amidate) 20 mg STK-MED ONCE IV ; Start 12/16/16 at 02:58; Stop at 02:59; Status DC Propofol 100 ml @ 0 mls/hr CONT PRN IV SEE I/O RECORD; Start 12/16/16 at 04:15 ; Stop 12/16/16 at 08:04; Status DC Chlorhexidine Gluconate (Peridex) 15 ml BID MM ; Start 12/16/16 at 09:00 Propofol (Diprivan) 1,000 mg STK-MED ONCE IV ; Start 12/16/16 at 03:00; Stop at 07:11; Status DC Active Scripts Active Oxycodone Hcl 5 Mg Tablet 5 Mg PO PRN Q6HRS PRN Reported Albuterol Sulfate Neb Soln (Albuterol Sulfate) 1.25 Mg/3 Ml Vial.neb 1 Vial NEB Q6HRS Ranitidine Hcl 150 Mg Capsule 75 Mg PO DAILY Ondansetron Hcl 8 Mg Tablet 8 Mg PO DAILY Azithromycin Tablet (Azithromycin) 250 Mg Tablet 250 Mg PO DAILY Bupropion Hcl 100 Mg Tablet 100 Mg PO BID Nasal Allergy Gibbs (Cromolyn Sodium) 13 Ml Gibbs.pump 13 Ml NS DAILY Gabapentin 300 Mg Capsule 300 Mg PO BID Hydroxyzine Hcl 25 Mg Tablet 25 Mg PO DAILY Nystatin 15 Gm Cream..g. 15 Gm TP BID Duloxetine Hcl 60 Mg Capsule.dr 60 Mg PO DAILY Clonidine Hcl 0.1 Mg Tablet 0.1 Mg PO DAILY Lisinopril 20 Mg Tablet 20 Mg PO DAILY Famciclovir 125 Mg Tablet 125 Mg PO DAILY Ropinirole Hcl 0.25 Mg Tablet 0.25 Mg PO DAILY Hydroxychloroquine Sulfate 200 Mg Tablet 200 Mg PO DAILY Lyrica (Pregabalin) 150 Mg Capsule 150 Mg PO DAILY Furosemide 20 Mg Tablet 20 Mg PO DAILY Alprazolam 0.25 Mg Tablet 0.25 Mg PO Oxycodone Hcl 5 Mg Tablet 5 Mg PO PRN Q4HRS PRN Ibuprofen 400 Mg Tablet 400 Mg PO PRN DAILY PRN Multivitamins (Multivitamin) 1 Each Tablet 1 Each PO DAILY Oxycodone-Acetaminophen 10-325 (Oxycodone Hcl/Acetaminophen) 1 Each Tablet 1 Each PO PRN Q4-6HRS PRN Plaquenil (Hydroxychloroquine Sulfate) 200 Mg Tablet 200 Mg PO BID Vitals/I & O Vital Sign - Last 24 Hours 12/15/16 12/15/16 12/15/16 12/15/16 09:00 10:00 11:00 11:18 Pulse 118 114 110 Resp 17 16 15 B/P (MAP) 160/83 (108) 157/91 (113) 160/96 (117) Pulse Ox 95 95 96 96 O2 Delivery Nasal Cannula Nasal Cannula Nasal Cannula Nasal Cannula O2 Flow Rate 2.0 2.0 2.0 2.0 12/15/16 12/15/16 12/15/16 12/15/16 15:29 15:40 17:34 19:31 Temp 98.8 98.8 Pulse 127 Resp 16 B/P (MAP) 179/103 (128) Pulse Ox 96 97 96 O2 Delivery Nasal Cannula Nasal Cannula Nasal Cannula Nasal Cannula O2 Flow Rate 2.0 2.0 2.0 2.0 12/15/16 12/15/16 12/15/16 12/16/16 19:46 20:00 23:21 00:43 Temp 97.6 97.9 97.6 97.9 Pulse 123 103 Resp 22 20 B/P (MAP) 172/104 (126) 156/90 (112) Pulse Ox 97 98 96 O2 Delivery Nasal Cannula Nasal Cannula Nasal Cannula Nasal Cannula O2 Flow Rate 2.0 2.0 2.0 2.0 12/16/16 12/16/16 12/16/16 12/16/16 03:00 03:20 04:00 04:00 Temp 97.9 97.9 Pulse 103 100 Resp 20 24 B/P (MAP) 156/90 (112) 107/58 (74) Pulse Ox 99 100 100 O2 Delivery Ventilator Ventilator Mechanical Ventilator 12/16/16 12/16/16 12/16/16 12/16/16 04:00 04:58 05:00 06:02 Temp 97.9 97.9 Pulse 92 88 Resp 24 22 B/P (MAP) () 136/74 (94) 136/76 (96) Pulse Ox 100 99 100 O2 Delivery Ventilator Ventilator Ventilator O2 Flow Rate 12/16/16 12/16/16 06:02 07:08 Pulse Ox 100 O2 Delivery Mechanical Ventilator Ventilator Intake and Output 12/15/16 12/15/16 12/16/16 15:00 23:00 07:00 Intake Total 400 ml 625 ml 492 ml Output Total 340 ml 850 ml 700 ml Balance 60 ml -225 ml -208 ml Nutrition Consultation Dietary Evaluation: Recommendations by RD: Increase Calorie Intake Comments: Contiue the TF's with Diabetisource AC, goal rate 60 ml/hr start at 20 ml/hr, increase by 20 ml/hr q8h to goal flushes 225 cc q6h Expected Outcomes/Goals: tolerate the TF's at goal rate- goal met meet 75% estimated nutrition needs- goal met Malnutrition Findings: Reduced Insulation Inspector Strength: N/A Reduced Insulation Inspector Strength (Non-Sev: N/A Malnutrition related to morbid: No Weight Status: Obese SHARIF REYNA MD Dec 16, 2016 08:54
[2016-12-16 09:00] LABS: FIO2 ABG 40; HCO3 ABG 23 mmol/L (21-28); PCO2 ABG 38 mmHg (35-46); PH ABG 7.41 (7.35-7.45); PO2 ABG 144 mmHg (75-108); SAT O2 ABG 98 % (92-99)
[2016-12-16] MEDS: PREGABALIN 75 MG CAPSULE PO SCH (09:00)
[2016-12-16] MEDS: ALPRAZolam 0.25 MG TABLET PO SCH (09:00)
[2016-12-16] MEDS: buPROPion 100 MG TABLET PO SCH ×2 (09:53→21:12)
[2016-12-16] MEDS: CHLORHEXIDINE 0.12% 15 ML MOUTHWASH. MM SCH ×2 (09:54→21:12)
[2016-12-16] MEDS: HYDROCORTISONE SOD SUCC/PF 100 MG/2 ML VIAL. IV SCH (09:56)
--- NOTE | 2016-12-16 09:56 | PDOC ---
Infectious Disease Note Subjective Subjective Intubated/sedated ROS ROS Unobtainable Vital Sign Vital Signs Vital Signs Date Time Temp Pulse Resp B/P (MAP) Pulse Ox O2 Delivery O2 Flow Rate FiO2 12/16/16 09:03 100 Ventilator 12/16/16 06:02 88 22 136/76 (96) 12/16/16 05:00 97.9 97.9 12/16/16 04:00 Physical Exam PHYSICAL EXAM GENERAL: Intubated/sedated HEENT: OC/OP dry, [place] NECK: Supple LUNGS: Decreased airway clear, nonlabored HEART: S1S2, no gallop, no murmur ABD: Soft, NT, BS active : Vaughan GENERAL MATCHER: Sedated EXT: Generalized edema. SKIN: + purpura BLE. fading. Less ant chest erythema Port-a-cath. clean Labs Lab Laboratory Tests Test 12/15/16 16:58 12/16/16 00:32 12/16/16 02:15 12/16/16 05:01 Glucose (Fingerstick) 138 mg/dL (70-99) 146 mg/dL (70-99) O2 Saturation 98 % (92-99) 99 % (92-99) Arterial Blood pH 7.19 (7.35-7.45) 7.33 (7.35-7.45) Arterial Blood pCO2 at Patient Temp 66 mmHg (35-46) 43 mmHg (35-46) Arterial Blood pO2 at Patient Temp 144 mmHg (75-108) 264 mmHg (75-108) Arterial Blood HCO3 25 mmol/L (21-28) 22 mmol/L (21-28) Arterial Blood Base Excess -5 mmol/L (-3-3) -3 mmol/L (-3-3) FiO2 60 70 Test 12/16/16 06:50 12/16/16 07:10 12/16/16 08:55 12/16/16 09:09 Glucose (Fingerstick) 124 mg/dL (70-99) 93 mg/dL (70-99) White Blood Count 5.4 x10^3/uL (4.0-11.0) Red Blood Count 2.50 x10^6/uL (3.50-5.40) Hemoglobin 7.5 g/dL (12.0-15.5) Hematocrit 22.7 % (36.0-47.0) Mean Corpuscular Volume 91 fL (79-100) Mean Corpuscular Hemoglobin 30 pg (25-35) Mean Corpuscular Hemoglobin Concent 33 g/dL (31-37) Red Cell Distribution Width 15.5 % (11.5-14.5) Platelet Count 50 x10^3/uL (140-400) Neutrophils (%) (Auto) 86 % (31-73) Lymphocytes (%) (Auto) 10 % (24-48) Monocytes (%) (Auto) 4 % (0-9) Eosinophils (%) (Auto) 0 % (0-3) Basophils (%) (Auto) 0 % (0-3) Neutrophils # (Auto) 4.6 x10^3uL (1.8-7.7) Lymphocytes # (Auto) 0.5 x10^3/uL (1.0-4.8) Monocytes # (Auto) 0.2 x10^3/uL (0.0-1.1) Eosinophils # (Auto) 0.0 x10^3/uL (0.0-0.7) Basophils # (Auto) 0.0 x10^3/uL (0.0-0.2) Sodium Level 147 mmol/L (136-145) Potassium Level 3.7 mmol/L (3.5-5.1) Chloride Level 115 mmol/L (98-107) Carbon Dioxide Level 25 mmol/L (21-32) Anion Gap 7 (6-14) Blood Urea Nitrogen 60 mg/dL (7-20) Creatinine 1.0 mg/dL (0.6-1.0) Estimated GFR (Cockcroft-Gault) 69.7 Glucose Level 135 mg/dL (70-99) Calcium Level 9.0 mg/dL (8.5-10.1) Random Vancomycin Level 13.5 mcg/mL O2 Saturation 98 % (92-99) Arterial Blood pH 7.41 (7.35-7.45) Arterial Blood pCO2 at Patient Temp 38 mmHg (35-46) Arterial Blood pO2 at Patient Temp 144 mmHg (75-108) Arterial Blood HCO3 23 mmol/L (21-28) Arterial Blood Base Excess -1 mmol/L (-3-3) FiO2 40 Objective Assessment Acute resp failure - intubated. Per nursing a lot of plugs suctioned Sepsis. POA with MRSA bacteremia. 12/06 with repeat 12/10 likely positive -TTE neg. repeat BC positive, 12/10 MRSA pneumonia, POA Hypotension, now off pressor Pancytopenia/anemia PCN allergy, reaction unknown Acute encephalopathy- improved LEONARDO Acute respiratory failure h/o breast cancer, s/p chemo. Port still in place Lupus on Plaquenil Recent E. coli UTI MRSA nares, 11/25, 12/06 Diarrhea. C. diff. neg 12/06 Plan Plan of Care Given thrombocytopenia (avoid Zyvox and has bacteremia)/Acute resp failure ( Avoid Dapto no lung coverage) ? ant chest rash and ? Vanc kinetics - will change to Teflaro to cover lung and blood. May need bronch d/c cont Vanc - remains on hold ? reason for elevation with nml. CR. area of redness about the neck vanc trough 23.5 12/15 Monitor WBC, Cr and temp. May need to change off Vanc Repeat BC from 12/14 pending CHARLI pending. Will need CHARLI please Port will likely need removal. am labs D/w sister KEITH DAIGLE MD Dec 16, 2016 09:56
[2016-12-16] MEDS: FUROSEMIDE 40 MG/4 ML VIAL. IVP SCH (09:57)
[2016-12-16] MEDS: FAMOTIDINE 20 MG/2 ML VIAL IVP SCH ×2 (10:30→21:10)
--- NOTE | 2016-12-16 11:00 | PDOC ---
PULMONARY PROGRESS NOTES Subjective PT WITH RESP DISTRESS LAST ESPINOZA REINTUBATED NOW SEDATED Vitals Vital Signs Date Time Temp Pulse Resp B/P (MAP) Pulse Ox O2 Delivery O2 Flow Rate FiO2 12/16/16 09:03 100 Ventilator 12/16/16 06:02 88 22 136/76 (96) 12/16/16 05:00 97.9 97.9 12/16/16 04:00 ROS: No Nausea, No Chest Pain, No Abdominal Pain, No Increase Cough General: Alert HEENT: Other (nc at perrl, orally intubated, nose clear... neck no lap, no thyromegaly) Lungs: Clear, Wheezing Cardiovascular: S1, S2 Abdomen: Soft, Non-tender Neuro Exam: Alert Extremities: Other (edema) Skin: Warm Labs Laboratory Tests Test 12/14/16 14:56 12/14/16 17:07 12/14/16 22:30 12/14/16 23:06 Glucose (Fingerstick) 141 mg/dL (70-99) 133 mg/dL (70-99) 114 mg/dL (70-99) Vancomycin Level Trough 25.4 mcg/mL (10.0-20.0) Vancomycin Last Dose Date Vancomycin Last Dose Time 0600 Test 12/15/16 04:30 12/15/16 06:10 12/15/16 16:58 12/16/16 00:32 Random Vancomycin Level 23.5 mcg/mL Glucose (Fingerstick) 136 mg/dL (70-99) 138 mg/dL (70-99) 146 mg/dL (70-99) Test 12/16/16 02:15 12/16/16 05:01 12/16/16 06:50 12/16/16 07:10 O2 Saturation 98 % (92-99) 99 % (92-99) Arterial Blood pH 7.19 (7.35-7.45) 7.33 (7.35-7.45) Arterial Blood pCO2 at Patient Temp 66 mmHg (35-46) 43 mmHg (35-46) Arterial Blood pO2 at Patient Temp 144 mmHg (75-108) 264 mmHg (75-108) Arterial Blood HCO3 25 mmol/L (21-28) 22 mmol/L (21-28) Arterial Blood Base Excess -5 mmol/L (-3-3) -3 mmol/L (-3-3) FiO2 60 70 Glucose (Fingerstick) 124 mg/dL (70-99) White Blood Count 5.4 x10^3/uL (4.0-11.0) Red Blood Count 2.50 x10^6/uL (3.50-5.40) Hemoglobin 7.5 g/dL (12.0-15.5) Hematocrit 22.7 % (36.0-47.0) Mean Corpuscular Volume 91 fL (79-100) Mean Corpuscular Hemoglobin 30 pg (25-35) Mean Corpuscular Hemoglobin Concent 33 g/dL (31-37) Red Cell Distribution Width 15.5 % (11.5-14.5) Platelet Count 50 x10^3/uL (140-400) Neutrophils (%) (Auto) 86 % (31-73) Lymphocytes (%) (Auto) 10 % (24-48) Monocytes (%) (Auto) 4 % (0-9) Eosinophils (%) (Auto) 0 % (0-3) Basophils (%) (Auto) 0 % (0-3) Neutrophils # (Auto) 4.6 x10^3uL (1.8-7.7) Lymphocytes # (Auto) 0.5 x10^3/uL (1.0-4.8) Monocytes # (Auto) 0.2 x10^3/uL (0.0-1.1) Eosinophils # (Auto) 0.0 x10^3/uL (0.0-0.7) Basophils # (Auto) 0.0 x10^3/uL (0.0-0.2) Sodium Level 147 mmol/L (136-145) Potassium Level 3.7 mmol/L (3.5-5.1) Chloride Level 115 mmol/L (98-107) Carbon Dioxide Level 25 mmol/L (21-32) Anion Gap 7 (6-14) Blood Urea Nitrogen 60 mg/dL (7-20) Creatinine 1.0 mg/dL (0.6-1.0) Estimated GFR (Cockcroft-Gault) 69.7 Glucose Level 135 mg/dL (70-99) Calcium Level 9.0 mg/dL (8.5-10.1) Random Vancomycin Level 13.5 mcg/mL Test 12/16/16 08:55 12/16/16 09:09 O2 Saturation 98 % (92-99) Arterial Blood pH 7.41 (7.35-7.45) Arterial Blood pCO2 at Patient Temp 38 mmHg (35-46) Arterial Blood pO2 at Patient Temp 144 mmHg (75-108) Arterial Blood HCO3 23 mmol/L (21-28) Arterial Blood Base Excess -1 mmol/L (-3-3) FiO2 40 Glucose (Fingerstick) 93 mg/dL (70-99) Laboratory Tests Test 12/15/16 16:58 12/16/16 00:32 12/16/16 02:15 12/16/16 05:01 Glucose (Fingerstick) 138 mg/dL (70-99) 146 mg/dL (70-99) O2 Saturation 98 % (92-99) 99 % (92-99) Arterial Blood pH 7.19 (7.35-7.45) 7.33 (7.35-7.45) Arterial Blood pCO2 at Patient Temp 66 mmHg (35-46) 43 mmHg (35-46) Arterial Blood pO2 at Patient Temp 144 mmHg (75-108) 264 mmHg (75-108) Arterial Blood HCO3 25 mmol/L (21-28) 22 mmol/L (21-28) Arterial Blood Base Excess -5 mmol/L (-3-3) -3 mmol/L (-3-3) FiO2 60 70 Test 12/16/16 06:50 12/16/16 07:10 12/16/16 08:55 12/16/16 09:09 Glucose (Fingerstick) 124 mg/dL (70-99) 93 mg/dL (70-99) White Blood Count 5.4 x10^3/uL (4.0-11.0) Red Blood Count 2.50 x10^6/uL (3.50-5.40) Hemoglobin 7.5 g/dL (12.0-15.5) Hematocrit 22.7 % (36.0-47.0) Mean Corpuscular Volume 91 fL (79-100) Mean Corpuscular Hemoglobin 30 pg (25-35) Mean Corpuscular Hemoglobin Concent 33 g/dL (31-37) Red Cell Distribution Width 15.5 % (11.5-14.5) Platelet Count 50 x10^3/uL (140-400) Neutrophils (%) (Auto) 86 % (31-73) Lymphocytes (%) (Auto) 10 % (24-48) Monocytes (%) (Auto) 4 % (0-9) Eosinophils (%) (Auto) 0 % (0-3) Basophils (%) (Auto) 0 % (0-3) Neutrophils # (Auto) 4.6 x10^3uL (1.8-7.7) Lymphocytes # (Auto) 0.5 x10^3/uL (1.0-4.8) Monocytes # (Auto) 0.2 x10^3/uL (0.0-1.1) Eosinophils # (Auto) 0.0 x10^3/uL (0.0-0.7) Basophils # (Auto) 0.0 x10^3/uL (0.0-0.2) Sodium Level 147 mmol/L (136-145) Potassium Level 3.7 mmol/L (3.5-5.1) Chloride Level 115 mmol/L (98-107) Carbon Dioxide Level 25 mmol/L (21-32) Anion Gap 7 (6-14) Blood Urea Nitrogen 60 mg/dL (7-20) Creatinine 1.0 mg/dL (0.6-1.0) Estimated GFR (Cockcroft-Gault) 69.7 Glucose Level 135 mg/dL (70-99) Calcium Level 9.0 mg/dL (8.5-10.1) Random Vancomycin Level 13.5 mcg/mL O2 Saturation 98 % (92-99) Arterial Blood pH 7.41 (7.35-7.45) Arterial Blood pCO2 at Patient Temp 38 mmHg (35-46) Arterial Blood pO2 at Patient Temp 144 mmHg (75-108) Arterial Blood HCO3 23 mmol/L (21-28) Arterial Blood Base Excess -1 mmol/L (-3-3) FiO2 40 Medications Active Scripts Medications Dose Route/Sig Max Daily Dose Days Date Category Oxycodone Hcl 5 Mg Tablet 5 Mg PO PRN Q6HRS PRN 11/28/16 Rx Albuterol Sulfate Neb Soln (Albuterol Sulfate) 1.25 Mg/3 Ml Vial.neb 1 Vial NEB Q6HRS 11/25/16 Reported Ranitidine Hcl 150 Mg Capsule 75 Mg PO DAILY 11/25/16 Reported Ondansetron Hcl 8 Mg Tablet 8 Mg PO DAILY 11/25/16 Reported Azithromycin Tablet (Azithromycin) 250 Mg Tablet 250 Mg PO DAILY 11/25/16 Reported Bupropion Hcl 100 Mg Tablet 100 Mg PO BID 11/25/16 Reported Nasal Allergy [place] (Cromolyn Sodium) 13 Ml [place].pump 13 Ml NS DAILY 11/25/16 Reported Gabapentin 300 Mg Capsule 300 Mg PO BID 11/25/16 Reported Hydroxyzine Hcl 25 Mg Tablet 25 Mg PO DAILY 11/25/16 Reported Nystatin 15 Gm Cream..g. 15 Gm TP BID 11/25/16 Reported Duloxetine Hcl 60 Mg Capsule.dr 60 Mg PO DAILY 11/25/16 Reported Clonidine Hcl 0.1 Mg Tablet 0.1 Mg PO DAILY 11/25/16 Reported Lisinopril 20 Mg Tablet 20 Mg PO DAILY 11/25/16 Reported Famciclovir 125 Mg Tablet 125 Mg PO DAILY 11/25/16 Reported Ropinirole Hcl 0.25 Mg Tablet 0.25 Mg PO DAILY 11/25/16 Reported Hydroxychloroquine Sulfate 200 Mg Tablet 200 Mg PO DAILY 11/25/16 Reported Lyrica (Pregabalin) 150 Mg Capsule 150 Mg PO DAILY 11/25/16 Reported Furosemide 20 Mg Tablet 20 Mg PO DAILY 11/25/16 Reported Alprazolam 0.25 Mg Tablet 0.25 Mg PO 11/25/16 Reported Oxycodone Hcl 5 Mg Tablet 5 Mg PO PRN Q4HRS PRN 11/25/16 Reported Ibuprofen 400 Mg Tablet 400 Mg PO PRN DAILY PRN 05/11/15 Reported Multivitamins (Multivitamin) 1 Each Tablet 1 Each PO DAILY 05/11/15 Reported Oxycodone-Acetaminophen 10-325 (Oxycodone Hcl/Acetaminophen) 1 Each Tablet 1 Each PO PRN Q4-6HRS PRN 05/11/15 Reported Plaquenil (Hydroxychloroquine Sulfate) 200 Mg Tablet 200 Mg PO BID 08/19/13 Reported Comments CXR REVIEWED 1. Similar to slight progression of bilateral groundglass opacities suggesting worsening edema or infiltrate. Central pulmonary vascular congestion is progressed. 2. Distal tip of gastric tube projects over the distal esophagus/GE junction, recommend advancement. Impression . 1. Acute respiratory failure, multifactorial in etiology. THIRD INTUBATION 12/16 2. Abnormal chest x-ray could be secondary to volume overload, congestive heart failure or pneumonia. 3. Septic shock, bacteremia, g + cocci 4. Hypotension, resolved. 5. Pancytopenia. 6. Systemic lupus erythematosus, immunocompromised. 7. Hyponatremia. 8. Acute kidney injury. 9. History of breast cancer. 10. Hepatitis C. 11. Gastroesophageal reflux disease. 12. MRSA colonization. 13. ACUTE Blood loss anemia Plan . RESP STATUS DETERIATTED LAST ESPINOZA REINTUBATED 12/16 FOR THIRD TIME SHE NEEDS A TRACH CHARLI TUBE FEEDING REINTUBATED 12/10 EXTUBATED 12/13 DOING BETTER NPO FOR NOW UPPER EXT EDEMA TAPER STEROIDS ANTIBX PER ID DIURESE TRANSFUSE NEEDED YASMANY HENSON MD Dec 16, 2016 11:00
--- NOTE | 2016-12-16 11:07 | PDOC ---
Provider Note Provider Note 12/16/2016 0920 Pt is intubated and sedated. Discussed again with sister "Kristin" and agreed to proceed with CHARLI to rule out any endocarditis/vegetation in regards to bacteremia. Discussed with primary parlor maid and Informed staff and tentatively to be done at around 3 PM SHANICE CARPIO APRN Dec 16, 2016 11:07
[2016-12-16] MEDS: CEFTAROLINE FOSAMIL 600 MG in IV NORMAL SALINE 250ML 250 ML IV SCH ×3 (11:31→21:44)
--- NOTE | 2016-12-16 12:23 | PDOC ---
PROGRESS NOTES Subjective Subjective c/c - f/u of pancytopenia ROS - on vent Objective Objective Vital Signs Date Time Temp Pulse Resp B/P (MAP) Pulse Ox O2 Delivery O2 Flow Rate FiO2 12/16/16 11:30 82 20 144/72 (96) 100 Ventilator 12/16/16 08:00 97.5 97.5 12/16/16 04:00 Intake and Output 12/16/16 07:00 Intake Total 1517 ml Output Total 1890 ml Balance -373 ml Intake Oral 0 ml IV Total 42 ml Tube Feeding 1475 ml Output Urine Total 1890 ml Physical Exam HEENT: Atraumatic Lungs: Other (on vent) Neuro: Other (on vent) Assessment Assessment Problems Medical Problems: (1) Respiratory failure Status: Acute ASSESSMENT AND PLAN: The patient is a 55-year-old female with the following medical problems: 1. Acute pancytopenia, likely related to her severe sepsis with methicillin-resistant Staphylococcus aureus bacteremia. Her CBC was normal in late 10/2016. I recommend continuing to treat the underlying infection as you are doing. Transfuse for hemoglobin less than 7, platelets less than 20. She has no evidence of bleeding at this time. 2. Left upper extremity swelling. Ultrasound negative for a DVT 3. 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 She has several risk features. Ultimately, she agreed to have a mastectomy, which was completed in 04/2015. Her tumor was ER/KS negative, HER2 positive. She completed adjuvant Adriamycin/Cytoxan in 06/2015 and Taxol/Herceptin. She completed 1 year of Herceptin in 07/2016. A CT scan in 07/2016 showed indeterminant hilar lymph nodes and pulmonary nodules and bone scan was negative for any metastases. 4. Anemia worse, Hb 7.5,s/p transfusion 5. Thrombocytopenia better at 50, monitor cbc.. 6. Resp failure - appreciate pulm management. Comment Review of Relevant I have reviewed the following items anselmo (where applicable) has been applied. Labs Laboratory Tests Test 12/14/16 14:56 12/14/16 17:07 12/14/16 22:30 12/14/16 23:06 Glucose (Fingerstick) 141 mg/dL (70-99) 133 mg/dL (70-99) 114 mg/dL (70-99) Vancomycin Level Trough 25.4 mcg/mL (10.0-20.0) Vancomycin Last Dose Date Vancomycin Last Dose Time 0600 Test 12/15/16 04:30 12/15/16 06:10 12/15/16 16:58 12/16/16 00:32 Random Vancomycin Level 23.5 mcg/mL Glucose (Fingerstick) 136 mg/dL (70-99) 138 mg/dL (70-99) 146 mg/dL (70-99) Test 12/16/16 02:15 12/16/16 05:01 12/16/16 06:50 12/16/16 07:10 O2 Saturation 98 % (92-99) 99 % (92-99) Arterial Blood pH 7.19 (7.35-7.45) 7.33 (7.35-7.45) Arterial Blood pCO2 at Patient Temp 66 mmHg (35-46) 43 mmHg (35-46) Arterial Blood pO2 at Patient Temp 144 mmHg (75-108) 264 mmHg (75-108) Arterial Blood HCO3 25 mmol/L (21-28) 22 mmol/L (21-28) Arterial Blood Base Excess -5 mmol/L (-3-3) -3 mmol/L (-3-3) FiO2 60 70 Glucose (Fingerstick) 124 mg/dL (70-99) White Blood Count 5.4 x10^3/uL (4.0-11.0) Red Blood Count 2.50 x10^6/uL (3.50-5.40) Hemoglobin 7.5 g/dL (12.0-15.5) Hematocrit 22.7 % (36.0-47.0) Mean Corpuscular Volume 91 fL (79-100) Mean Corpuscular Hemoglobin 30 pg (25-35) Mean Corpuscular Hemoglobin Concent 33 g/dL (31-37) Red Cell Distribution Width 15.5 % (11.5-14.5) Platelet Count 50 x10^3/uL (140-400) Neutrophils (%) (Auto) 86 % (31-73) Lymphocytes (%) (Auto) 10 % (24-48) Monocytes (%) (Auto) 4 % (0-9) Eosinophils (%) (Auto) 0 % (0-3) Basophils (%) (Auto) 0 % (0-3) Neutrophils # (Auto) 4.6 x10^3uL (1.8-7.7) Lymphocytes # (Auto) 0.5 x10^3/uL (1.0-4.8) Monocytes # (Auto) 0.2 x10^3/uL (0.0-1.1) Eosinophils # (Auto) 0.0 x10^3/uL (0.0-0.7) Basophils # (Auto) 0.0 x10^3/uL (0.0-0.2) Sodium Level 147 mmol/L (136-145) Potassium Level 3.7 mmol/L (3.5-5.1) Chloride Level 115 mmol/L (98-107) Carbon Dioxide Level 25 mmol/L (21-32) Anion Gap 7 (6-14) Blood Urea Nitrogen 60 mg/dL (7-20) Creatinine 1.0 mg/dL (0.6-1.0) Estimated GFR (Cockcroft-Gault) 69.7 Glucose Level 135 mg/dL (70-99) Calcium Level 9.0 mg/dL (8.5-10.1) Random Vancomycin Level 13.5 mcg/mL Test 12/16/16 08:55 12/16/16 09:09 O2 Saturation 98 % (92-99) Arterial Blood pH 7.41 (7.35-7.45) Arterial Blood pCO2 at Patient Temp 38 mmHg (35-46) Arterial Blood pO2 at Patient Temp 144 mmHg (75-108) Arterial Blood HCO3 23 mmol/L (21-28) Arterial Blood Base Excess -1 mmol/L (-3-3) FiO2 40 Glucose (Fingerstick) 93 mg/dL (70-99) Laboratory Tests Test 12/15/16 16:58 12/16/16 00:32 12/16/16 02:15 12/16/16 05:01 Glucose (Fingerstick) 138 mg/dL (70-99) 146 mg/dL (70-99) O2 Saturation 98 % (92-99) 99 % (92-99) Arterial Blood pH 7.19 (7.35-7.45) 7.33 (7.35-7.45) Arterial Blood pCO2 at Patient Temp 66 mmHg (35-46) 43 mmHg (35-46) Arterial Blood pO2 at Patient Temp 144 mmHg (75-108) 264 mmHg (75-108) Arterial Blood HCO3 25 mmol/L (21-28) 22 mmol/L (21-28) Arterial Blood Base Excess -5 mmol/L (-3-3) -3 mmol/L (-3-3) FiO2 60 70 Test 12/16/16 06:50 12/16/16 07:10 12/16/16 08:55 12/16/16 09:09 Glucose (Fingerstick) 124 mg/dL (70-99) 93 mg/dL (70-99) White Blood Count 5.4 x10^3/uL (4.0-11.0) Red Blood Count 2.50 x10^6/uL (3.50-5.40) Hemoglobin 7.5 g/dL (12.0-15.5) Hematocrit 22.7 % (36.0-47.0) Mean Corpuscular Volume 91 fL (79-100) Mean Corpuscular Hemoglobin 30 pg (25-35) Mean Corpuscular Hemoglobin Concent 33 g/dL (31-37) Red Cell Distribution Width 15.5 % (11.5-14.5) Platelet Count 50 x10^3/uL (140-400) Neutrophils (%) (Auto) 86 % (31-73) Lymphocytes (%) (Auto) 10 % (24-48) Monocytes (%) (Auto) 4 % (0-9) Eosinophils (%) (Auto) 0 % (0-3) Basophils (%) (Auto) 0 % (0-3) Neutrophils # (Auto) 4.6 x10^3uL (1.8-7.7) Lymphocytes # (Auto) 0.5 x10^3/uL (1.0-4.8) Monocytes # (Auto) 0.2 x10^3/uL (0.0-1.1) Eosinophils # (Auto) 0.0 x10^3/uL (0.0-0.7) Basophils # (Auto) 0.0 x10^3/uL (0.0-0.2) Sodium Level 147 mmol/L (136-145) Potassium Level 3.7 mmol/L (3.5-5.1) Chloride Level 115 mmol/L (98-107) Carbon Dioxide Level 25 mmol/L (21-32) Anion Gap 7 (6-14) Blood Urea Nitrogen 60 mg/dL (7-20) Creatinine 1.0 mg/dL (0.6-1.0) Estimated GFR (Cockcroft-Gault) 69.7 Glucose Level 135 mg/dL (70-99) Calcium Level 9.0 mg/dL (8.5-10.1) Random Vancomycin Level 13.5 mcg/mL O2 Saturation 98 % (92-99) Arterial Blood pH 7.41 (7.35-7.45) Arterial Blood pCO2 at Patient Temp 38 mmHg (35-46) Arterial Blood pO2 at Patient Temp 144 mmHg (75-108) Arterial Blood HCO3 23 mmol/L (21-28) Arterial Blood Base Excess -1 mmol/L (-3-3) FiO2 40 Microbiology 12/14/16 Blood Culture - Preliminary, Resulted NO GROWTH AFTER 2 DAYS 12/09/16 Stool Culture - Final, Complete 12/09/16 Stool Culture Result 1 (LUCINA) - Final, Complete 12/09/16 Campylobacter Antigen Assay - Final, Complete 12/09/16 Campylobactor Result 1 - Final, Complete 12/09/16 Shiga Toxin Test - Final, Complete 12/08/16 Sputum Culture - Final, Complete 12/08/16 Sputum Result 1 - Final, Complete 12/08/16 Antimicrobic Susceptibility - Final, Complete 12/06/16 Urine Culture - Final, Complete 12/06/16 Urine Culture Result 1 (LUCINA) - Final, Complete Medications Current Medications Sodium Chloride 1,000 ml @ 1,000 mls/hr 1X ONCE IV Last administered on 16:18; Start 12/06/16 at 16:15; Stop 12/06/16 at 17:14; Status DC Vancomycin HCl (Vanco Per Pharmacy) 1 each PRN DAILY PRN MC SEE COMMENTS Last administered on 12/15/16 15:18; Start 12/06/16 at 17:00; Stop 12/16/16 at 09:58 ; Status DC Levofloxacin/ Dextrose 150 ml @ 100 mls/hr 1X ONCE IV Last administered on 20:04; Start 12/06/16 at 17:00; Stop 12/06/16 at 18:29; Status DC Vancomycin HCl 2 gm/Sodium Chloride 500 ml @ 250 mls/hr 1X ONCE IV Last administered on 12/06/16 17:11; Start 12/06/16 at 17:00; Stop 12/06/16 at 18:59 ; Status DC Sodium Chloride 1,000 ml @ 1,000 mls/hr 1X ONCE IV Last administered on 17:09; Start 12/06/16 at 17:00; Stop 12/06/16 at 17:59; Status DC Meropenem 500 mg/ Sodium Chloride 50 ml @ 100 mls/hr Q8HRS IV Last administered on 12/10/16 07:30; Start 12/06/16 at 18:00; Stop 12/10/16 at 08:13 ; Status DC Dopamine HCl/ Dextrose 250 ml @ 16.414 mls/ hr 1X ONCE IV Last administered on 12/06/16 17:41; Start 12/06/16 at 17:15; Stop 12/07/16 at 08:28; Status DC Etomidate (Amidate) 20 mg 1X ONCE IV Last administered on 12/06/16 17:19; Start 12/06/16 at 17:15; Stop 12/06/16 at 17:17; Status DC Succinylcholine Chloride (Anectine) 100 mg 1X ONCE IV Last administered on 17:20; Start 12/06/16 at 17:15; Stop 12/06/16 at 17:17; Status DC Vancomycin HCl 1.25 gm/Sodium Chloride 250 ml @ 167 mls/hr Q24H IV Last administered on 12/07/16 18:39; Start 12/07/16 at 17:00; Stop 12/07/16 at 23:00 ; Status DC Vancomycin HCl 1 each 1X ONCE MC ; Start 12/07/16 at 16:30; Stop 12/07/16 at 16 :31; Status Cancel Midazolam HCl 100 ml @ As Directed STK-MED ONCE IV ; Start 12/06/16 at 17:36; Stop 12/06/16 at 17:37; Status DC Midazolam HCl (Versed) 5 mg STK-MED ONCE .ROUTE ; Start 12/06/16 at 17:37; Stop 12/06/16 at 17:38; Status DC Midazolam HCl (Versed) 5 mg PRN Q10MIN PRN IV SEDATION; Start 12/06/16 at 17:45 Hydrocortisone Sodium Succinate (Solu-CORTEF) 100 mg Q8HRS IV Last administered on 12/09/16 13:55; Start 12/06/16 at 18:30; Stop 12/09/16 at 16:21 ; Status DC Norepinephrine Bitartrate 16 mg/ Sodium Chloride 266 ml @ 0 mls/hr CONT PRN IV SEE I/O RECORD; Start 12/06/16 at 19:00; Status UNV Pantoprazole Sodium (Protonix Vial) 40 mg DAILYAC IVP Last administered on 12/15 08:40; Start 12/06/16 at 19:30; Stop 12/15/16 at 10:35; Status DC Acetaminophen (Tylenol) 325 mg PRN Q6HRS PRN PO MILD PAIN / TEMP; Start at 19:00 Hydralazine HCl (Apresoline) 10 mg PRN Q4HRS PRN IVP ELEVATED BP, SEE COMMENTS Last administered on 12/15/16 06:06; Start 12/06/16 at 19:00 Ondansetron HCl (Zofran) 4 mg PRN Q8HRS PRN IV NAUSEA/VOMITING; Start 12/06/16 at 19:00; Stop 12/12/16 at 08:31; Status DC Albuterol Sulfate (Ventolin Neb Soln) 2.5 mg PRN Q4HRS PRN NEB SHORTNESS OF BREATH Last administered on 12/16/16 00:43; Start 12/06/16 at 19:00 Norepinephrine Bitartrate 250 ml @ 1.875 mls/ hr CONT PRN IV SEE I/O RECORD Last administered on 12/06/16 19:55; Start 12/06/16 at 19:00; Stop 12/15/16 at 10:33; Status DC Sodium Chloride 1,000 ml @ 1,000 mls/hr 1X ONCE IV Last administered on 19:56; Start 12/06/16 at 19:15; Stop 12/06/16 at 20:14; Status DC Sodium Chloride 1,000 ml @ 75 mls/hr [id number] IV Last administered on 21:55; Start 12/06/16 at 19:15; Stop 12/09/16 at 18:44; Status DC Pneumococcal Polyvalent Vaccine (Do NOT chart on this placeholder) 1 each PRN DAILY PRN MC PT UNABLE TO RESPOND; Start 12/07/16 at 09:30; Status Cancel Pneumococcal Polyvalent Vaccine (Pneumovax 23) 0.5 ml ONCE ONCE VAX IM ; Start 12/08/16 at 09:00; Stop 12/08/16 at 09:01; Status DC Albuterol/ Ipratropium (Duoneb) 3 ml RTQID NEB Last administered on 12/16/16 11:15; Start 12/07/16 at 12:00 Midazolam HCl 100 ml @ 0 mls/hr CONT PRN IV SEE I/O RECORD Last administered on 12/07/16 10:29; Start 12/07/16 at 10:15; Stop 12/13/16 at 20:41; Status DC Fentanyl Citrate (Fentanyl 2ml Vial) 25 mcg PRN Q1HR PRN IV PAIN Last administered on 12/15/16 00:34; Start 12/07/16 at 10:45 Pantoprazole Sodium (Protonix Vial) 40 mg DAILYAC IVP ; Start 12/07/16 at 17:00 ; Status Cancel Vancomycin HCl 1.25 gm/Sodium Chloride 250 ml @ 167 mls/hr Q12H IV Last administered on 12/13/16 18:25; Start 12/08/16 at 06:00; Stop 12/13/16 at 18:54 ; Status DC Vancomycin HCl 1 each 1X ONCE MC ; Start 12/08/16 at 17:30; Stop 12/08/16 at 17 :31; Status DC Vancomycin HCl 1 gm/Sodium Chloride 250 ml @ 250 mls/hr Q12H IV ; Start at 18:00; Status Cancel Chlorhexidine Gluconate (Peridex) 15 ml BID SWSP ; Start 12/09/16 at 21:00; Stop 12/10/16 at 07:23; Status DC Hydrocortisone Sodium Succinate (Solu-CORTEF) 100 mg Q12HR IV Last administered on 12/14/16 08:53; Start 12/09/16 at 21:00; Stop 12/14/16 at 16:52 ; Status DC Amino Acids/ Glycerin/ Electrolytes 1,000 ml @ 40 mls/hr Q24H IV Last administered on 12/09/16 17:56; Start 12/09/16 at 17:00; Stop 12/10/16 at 14:16 ; Status DC Alprazolam (Xanax) 0.25 mg DAILY PO Last administered on 12/15/16 08:41; Start 12/10/16 at 09:00 Bupropion HCl (Wellbutrin) 100 mg BID PO Last administered on 12/16/16 09:53; Start 12/09/16 at 21:00 Gabapentin (Neurontin) 300 mg BID PO ; Start 12/09/16 at 21:00; Status Cancel Ropinirole HCl (Requip) 0.25 mg QHS PO Last administered on 12/15/16 20:34; Start 12/09/16 at 21:00 Pregabalin (Lyrica) 150 mg DAILY PO Last administered on 12/15/16 08:41; Start 12/10/16 at 09:00 Epinephrine (S2 Racepinephrine) 0.5 ml 1X ONCE NEB Last administered on 07:45; Start 12/10/16 at 07:45; Stop 12/10/16 at 07:46; Status DC Lorazepam (Ativan) 2 mg 1X ONCE IV Last administered on 12/10/16 08:33; Start 12/10/16 at 08:00; Stop 12/10/16 at 08:01; Status DC Succinylcholine Chloride (Anectine) 200 mg STK-MED ONCE .ROUTE ; Start 12/10/16 at 10:28; Stop 12/10/16 at 10:29; Status DC Propofol 100 ml @ As Directed STK-MED ONCE IV ; Start 12/10/16 at 10:28; Stop 12/10/16 at 10:29; Status DC Calcium Gluconate (Calcium Gluconate) 1,000 mg 1X ONCE IVP Last administered on 12/10/16 11:41; Start 12/10/16 at 11:30; Stop 12/10/16 at 11:31; Status DC Succinylcholine Chloride (Anectine) 200 mg 1X ONCE IV Last administered on 11:41; Start 12/10/16 at 11:30; Stop 12/10/16 at 11:31; Status DC Propofol 100 ml @ 0 mls/hr CONT PRN IV SEE I/O RECORD Last administered on 12/13 00:57; Start 12/10/16 at 11:30; Stop 12/13/16 at 20:41; Status DC Insulin Aspart (NovoLOG) 0-5 UNITS TIDWMEALS SQ ; Start 12/11/16 at 08:00; Stop 12/11/16 at 08:00; Status DC Dextrose (Dextrose 50%-Water Syringe) 12.5 gm PRN Q15MIN PRN IV SEE COMMENTS; Start 12/10/16 at 20:30 Insulin Aspart (NovoLOG) 0-5 UNITS Q6HRS SQ Last administered on 12/13/16 06: 25; Start 12/11/16 at 00:00 Chlorhexidine Gluconate (Peridex) 15 ml BID MM Last administered on 12/13/16 09:46; Start 12/11/16 at 21:00; Stop 12/13/16 at 20:41; Status DC Fentanyl Citrate (Fentanyl 2ml Vial) 25 mcg PRN Q5MIN PRN IV MILD PAIN; Start 12/12/16 at 07:00; Stop 12/13/16 at 06:59; Status DC Fentanyl Citrate (Fentanyl 2ml Vial) 50 mcg PRN Q5MIN PRN IV MODERATE PAIN; Start 12/12/16 at 07:00; Stop 12/13/16 at 06:59; Status DC Morphine Sulfate 1 mg PRN Q10MIN PRN IV SEVERE PAIN; Start 12/12/16 at 07:00; Stop 12/13/16 at 06:59; Status DC Ringer's Solution 1,000 ml @ 30 mls/hr Q24H IV ; Start 12/12/16 at 07:00; Stop 12/12/16 at 18:59; Status DC Lidocaine HCl 2 ml PRN 1X PRN ID PRIOR TO IV START; Start 12/12/16 at 07:00; Stop 12/13/16 at 06:59; Status DC Hydromorphone HCl (Dilaudid) 0.5 mg PRN Q10MIN PRN IV SEV PAIN, Second choice; Start 12/12/16 at 07:00; Stop 12/13/16 at 06:59; Status DC Prochlorperazine Edisylate (Compazine) 5 mg PACU PRN PRN IV NAUSEA, MRX1; Start 12/12/16 at 07:00; Stop 12/13/16 at 06:59; Status DC Lidocaine HCl (Lidocaine Pf 2% Vial) 5 ml STK-MED ONCE .ROUTE ; Start 12/12/16 at 08:15; Stop 12/12/16 at 08:16; Status DC Propofol 0 ml @ As Directed STK-MED ONCE IV ; Start 12/12/16 at 08:15; Stop at 08:16; Status DC Ondansetron HCl (Zofran) 4 mg PRN Q6HRS PRN IV NAUSEA/VOMITING Last administered on 12/14/16 01:41; Start 12/12/16 at 19:00 Acetaminophen (Tylenol) 650 mg PRN Q6HRS PRN PEG MILD PAIN / TEMP Last administered on 12/15/16 17:25; Start 12/12/16 at 08:30 Vancomycin HCl 1 each 1X ONCE MC Last administered on 12/13/16 10:00; Start 12/13/16 at 10:00; Stop 12/13/16 at 10:01; Status DC Furosemide (Lasix) 40 mg 1X ONCE IVP Last administered on 12/13/16 11:31; Start 12/13/16 at 11:15; Stop 12/13/16 at 11:16; Status DC Amino Acids/ Glycerin/ Electrolytes 1,000 ml @ 75 mls/hr [id number] IV Last administered on 12/15/16 04:25; Start 12/13/16 at 21:00; Stop 12/15/16 at 10:33 ; Status DC Vancomycin HCl 1 each 1X ONCE MC Last administered on 12/14/16 09:00; Start 12/14/16 at 09:00; Stop 12/14/16 at 09:01; Status DC Vancomycin HCl 1 each 1X ONCE MC ; Start 12/15/16 at 06:00; Stop 12/15/16 at 06 :01; Status Cancel Vancomycin HCl 1 each 1X ONCE MC Last administered on 12/15/16 06:00; Start 12/15/16 at 06:00; Stop 12/15/16 at 06:01; Status DC Alteplase, Recombinant (Cathflo) 2 mg 1X ONCE INT CAT Last administered on 14:58; Start 12/14/16 at 14:30; Stop 12/14/16 at 14:34; Status DC Hydrocortisone Sodium Succinate (Solu-CORTEF) 100 mg DAILY IV Last administered on 12/16/16 09:56; Start 12/15/16 at 09:00 Haloperidol Lactate (Haldol) 2.5 mg PRN Q4HRS PRN IVP AGITATION Last administered on 12/15/16 20:35; Start 12/15/16 at 06:45 Lansoprazole (Prevacid) 30 mg DAILYAC FT ; Start 12/16/16 at 07:30; Stop at 10:00; Status DC Vancomycin HCl 1 gm/Sodium Chloride 250 ml @ 250 mls/hr Q48H IV ; Start at 21:00; Status Cancel Morphine Sulfate 2 mg PRN Q2HR PRN IV SEVERE PAIN Last administered on 01:19; Start 12/15/16 at 21:15 Zolpidem Tartrate (Ambien) 5 mg PRN QHS PRN PO INSOMNIA Last administered on 00:17; Start 12/16/16 at 00:00 Propofol 100 ml @ As Directed STK-MED ONCE IV ; Start 12/16/16 at 02:34; Stop 12/16/16 at 02:35; Status DC Succinylcholine Chloride (Anectine) 200 mg STK-MED ONCE .ROUTE ; Start 12/16/16 at 02:57; Stop 12/16/16 at 02:58; Status DC Succinylcholine Chloride (Anectine) 200 mg STK-MED ONCE .ROUTE ; Start 12/16/16 at 02:57; Stop 12/16/16 at 02:58; Status DC Etomidate (Amidate) 20 mg STK-MED ONCE IV ; Start 12/16/16 at 02:58; Stop at 02:59; Status DC Propofol 100 ml @ 0 mls/hr CONT PRN IV SEE I/O RECORD; Start 12/16/16 at 04:15 ; Stop 12/16/16 at 08:04; Status DC Chlorhexidine Gluconate (Peridex) 15 ml BID MM Last administered on 12/16/16 09:54; Start 12/16/16 at 09:00 Propofol (Diprivan) 1,000 mg STK-MED ONCE IV ; Start 12/16/16 at 03:00; Stop at 07:11; Status DC Furosemide (Lasix) 40 mg DAILY IVP Last administered on 12/16/16 09:57; Start 12/16/16 at 09:00 Ceftaroline Fosamil 600 mg/ Sodium Chloride 250 ml @ 250 mls/hr Q8HRS IV Last administered on 12/16/16 11:31; Start 12/16/16 at 10:00 Famotidine (Pepcid) 20 mg BID IVP Last administered on 12/16/16 10:30; Start 12/16/16 at 10:30 Propofol 100 ml @ 0 mls/hr CONT PRN IV PER PROTOCOL Last administered on 06:45; Start 12/16/16 at 06:45 Active Scripts Active Oxycodone Hcl 5 Mg Tablet 5 Mg PO PRN Q6HRS PRN Reported Albuterol Sulfate Neb Soln (Albuterol Sulfate) 1.25 Mg/3 Ml Vial.neb 1 Vial NEB Q6HRS Ranitidine Hcl 150 Mg Capsule 75 Mg PO DAILY Ondansetron Hcl 8 Mg Tablet 8 Mg PO DAILY Azithromycin Tablet (Azithromycin) 250 Mg Tablet 250 Mg PO DAILY Bupropion Hcl 100 Mg Tablet 100 Mg PO BID Nasal Allergy Juliaetta (Cromolyn Sodium) 13 Ml Juliaetta.pump 13 Ml NS DAILY Gabapentin 300 Mg Capsule 300 Mg PO BID Hydroxyzine Hcl 25 Mg Tablet 25 Mg PO DAILY Nystatin 15 Gm Cream..g. 15 Gm TP BID Duloxetine Hcl 60 Mg Capsule.dr 60 Mg PO DAILY Clonidine Hcl 0.1 Mg Tablet 0.1 Mg PO DAILY Lisinopril 20 Mg Tablet 20 Mg PO DAILY Famciclovir 125 Mg Tablet 125 Mg PO DAILY Ropinirole Hcl 0.25 Mg Tablet 0.25 Mg PO DAILY Hydroxychloroquine Sulfate 200 Mg Tablet 200 Mg PO DAILY Lyrica (Pregabalin) 150 Mg Capsule 150 Mg PO DAILY Furosemide 20 Mg Tablet 20 Mg PO DAILY Alprazolam 0.25 Mg Tablet 0.25 Mg PO Oxycodone Hcl 5 Mg Tablet 5 Mg PO PRN Q4HRS PRN Ibuprofen 400 Mg Tablet 400 Mg PO PRN DAILY PRN Multivitamins (Multivitamin) 1 Each Tablet 1 Each PO DAILY Oxycodone-Acetaminophen 10-325 (Oxycodone Hcl/Acetaminophen) 1 Each Tablet 1 Each PO PRN Q4-6HRS PRN Plaquenil (Hydroxychloroquine Sulfate) 200 Mg Tablet 200 Mg PO BID Vitals/I & O Vital Sign - Last 24 Hours 12/15/16 12/15/16 12/15/16 12/15/16 15:29 15:40 17:34 19:31 Temp 98.8 98.8 Pulse 127 Resp 16 B/P (MAP) 179/103 (128) Pulse Ox 96 97 96 O2 Delivery Nasal Cannula Nasal Cannula Nasal Cannula Nasal Cannula O2 Flow Rate 2.0 2.0 2.0 2.0 12/15/16 12/15/16 12/15/16 12/16/16 19:46 20:00 23:21 00:43 Temp 97.6 97.9 97.6 97.9 Pulse 123 103 Resp 22 20 B/P (MAP) 172/104 (126) 156/90 (112) Pulse Ox 97 98 96 O2 Delivery Nasal Cannula Nasal Cannula Nasal Cannula Nasal Cannula O2 Flow Rate 2.0 2.0 2.0 2.0 12/16/16 12/16/16 12/16/16 12/16/16 03:00 03:20 04:00 04:00 Temp 97.9 97.9 Pulse 103 100 Resp 20 24 B/P (MAP) 156/90 (112) 107/58 (74) Pulse Ox 99 100 100 O2 Delivery Ventilator Ventilator Mechanical Ventilator 12/16/16 12/16/16 12/16/16 12/16/16 04:00 04:58 05:00 06:02 Temp 97.9 97.9 Pulse 92 88 Resp 24 22 B/P (MAP) () 136/74 (94) 136/76 (96) Pulse Ox 100 99 100 O2 Delivery Ventilator Ventilator Ventilator O2 Flow Rate 12/16/16 12/16/16 12/16/16 12/16/16 06:02 07:00 07:08 07:30 Pulse 88 88 Resp 20 20 B/P (MAP) 132/62 (85) 135/64 (87) Pulse Ox 100 100 99 O2 Delivery Mechanical Ventilator Ventilator Ventilator Ventilator 12/16/16 12/16/16 12/16/16 12/16/16 08:00 08:30 09:00 09:03 Temp 97.5 97.5 Pulse 82 90 84 Resp 20 16 20 B/P (MAP) 127/65 (85) 160/82 (108) 139/72 (94) Pulse Ox 100 99 100 100 O2 Delivery Ventilator Ventilator Ventilator Ventilator 12/16/16 12/16/16 12/16/16 12/16/16 09:30 10:00 10:30 11:00 Pulse 84 86 84 84 Resp 20 20 20 20 B/P (MAP) 134/72 (92) 140/63 (88) 140/64 (89) 148/67 (94) Pulse Ox 100 100 100 100 O2 Delivery Ventilator Ventilator Ventilator Ventilator 12/16/16 12/16/16 11:15 11:30 Pulse 82 Resp 20 B/P (MAP) 144/72 (96) Pulse Ox 100 100 O2 Delivery Ventilator Ventilator Intake and Output 12/15/16 12/15/16 12/16/16 15:00 23:00 07:00 Intake Total 400 ml 625 ml 492 ml Output Total 340 ml 850 ml 700 ml Balance 60 ml -225 ml -208 ml Nutrition Consultation Dietary Evaluation: Recommendations by RD: Increase Calorie Intake Comments: Rec. restart the TF's with Diabetisource AC, goal rate 60 ml/hr start at 20 ml/hr, increase by 20 ml/hr q8h to goal flushes 225 cc q6h Expected Outcomes/Goals: tolerate the TF's at goal rate- not met / in progress meet 75% estimated nutrition needs- not met / in progress Malnutrition Findings: Reduced Middleware Systems Architect Strength: N/A Reduced Middleware Systems Architect Strength (Non-Sev: N/A Malnutrition related to morbid: No Weight Status: Obese ELLE CLARK MD Dec 16, 2016 12:23
[2016-12-16] MEDS ORDERED: IV RINGERS,LACTATED 1000ML 1,000 ML IV SCH (12:32)
[2016-12-16] MEDS ORDERED: LIDOCAINE 1% 1 ML SYRINGE. ID PRN (12:45)
[2016-12-16] MEDS ORDERED: MORPHINE SULFATE 2 MG/ML DISP.SYRIN. IV PRN (12:45)
[2016-12-16] MEDS ORDERED: HYDROmorphone 2 MG/ML VIAL IV PRN (12:45)
[2016-12-16] MEDS ORDERED: PROCHLORPERAZINE 10 MG/2 ML VIAL. IV PRN (12:45)
[2016-12-16] MEDS ORDERED: fentaNYL PF VIAL 100 MCG/2 ML VIAL IV PRN ×2 (12:45)
[2016-12-16] MEDS ORDERED: IV DEXTROSE 5 %-0.45 % NACL 1,000 ML IV SCH (13:00)
--- NOTE | 2016-12-16 13:39 | PDOC2 ---
PALLIATIVE CARE Palliative Care Note Palliative Care Consult requested by Dr. Antonio to address goals of care. Diagnosis: Severe sepsis with Shock, s/p pressors. MRSA bacteremia, + nares Pancytopenia : background of sepsis Acute respiratory failure RE intubation 12/11 - extubated 12/13, RE INTUBATED 12/15 Malnutrition: MOderate - to severe. Lupus, immuno suppressive ; Recent UTI; MRSA+_pneumonia Patient remains on Vent 45%. Propofol gtt. No Advanced Directive or any discussion with family regarding her wishes. Met with patient's daughter Araceli, sister-Kristin and friend of family Ruma Reviewed above medical condition/ changes in antibiotics/ likely removal of port / CHARLI Discussed goals of care; continue current treatment plan vs limitations of aggressive care vs comfort care if no improvement. Discussed code status: Daughter Araceli requests no chest compression or shocks. Continue all other current aggressive treatment. Questions answered. Discussed need for possible tracheostomy in future if unable to wean from ventilator. No decision. Discussed discharge plan. Patient has been accepted at [facility]. Awaiting insurance decisions. Will re-screen with changes. Plan: No chest compressions, no shocks, Continue current aggressive treatments. JOSE ELIAS SMITH Dec 16, 2016 13:39
--- NOTE | 2016-12-16 15:05 | PDOC4 ---
PROCEDURE Procedure BRONCHOSCOPY BAL RLL NO ENDOBRONCHIAL LESION NO MUCUS PLUGGING WILL AWAIT BAL RESULTS [id number] YASMANY HENSON MD Dec 16, 2016 15:04
--- NOTE | 2016-12-16 16:52 | CARD ---
APPROVED REPORT EXAM: Two-dimensional and M-mode echocardiogram with Doppler and color Doppler. INDICATION Bacteremia Reason For Test : Rule out endocarditis. PROCEDURE After obtaining informed consent, patient underwent transesophageal echo in the ICU. Type of Sedation : General Anesthesia Sedation was administered by ICU nurse. Sedation was achieved with Propofol intravenously. Transesophageal probe was inserted and advanced into esophagus by Danny Santillan MD. Echo enhancement indication: right atrial mass border delineation. Echo enhancement agent administered: Agitated Saline The CHARLI was performed without complications. Throughout the procedure, the blood pressure, pulse oximetry, cardiac rhythm, and rate were monitored . The patient tolerated the procedure without adverse effects. Recovery from conscious sedation was une ventful and vital signs were stable. LEFT VENTRICLE The left ventricle is normal size. There is normal left ventricular wall thickness. The left ventricu lar systolic function is normal and the ejection fraction is within normal range. The Ejection Fracti on is >55%. There is normal LV segmental wall motion. No left ventricle thrombus noted on this study. RIGHT VENTRICLE The right ventricle is normal size. There is normal right ventricular wall thickness. The right ventr icular systolic function is normal. ATRIA The left atrium is mildly dilated. The right atrium size is normal. A catheter is seen in the right a trium. There is a a 2.7 x 2.0 cm. hypoechoic structure attached to the catheter consistent with veget ation. The interatrial septum is intact with no evidence for an atrial septal defect or patent forame n ovale as noted on 2-D or Doppler imaging. There is no thrombus noted in the left atrial appendage. AORTIC VALVE The aortic valve is mildly sclerotic. The aortic valve is trileaflet. Doppler and Color Flow revealed no significant aortic regurgitation. There is no significant aortic valvular stenosis. MITRAL VALVE Mitral annular calcification is mild. The mitral valve leaflets are thickened. There is no evidence o f mitral valve prolapse. There is no mitral valve stenosis. Doppler and Color Flow revealed mild mitr al regurgitation. TRICUSPID VALVE Doppler and Color Flow revealed mild tricuspid regurgitation. Unable to determine pulmonary artery pr essure at exam time. PULMONIC VALVE Doppler and Color Flow revealed no pulmonic valvular regurgitation. There is no pulmonic valvular chilo nosis. GREAT VESSELS The aortic root is normal in size. The ascending aorta is normal in size. The pulmonary artery is nor mal. The IVC was not visualized. Catheter noted in the SVC extending into the RA with mobile thrombus attached. Critical Notification Critical Value: No <Conclusion> The left ventricular systolic function is normal and the ejection fraction is within normal range. Th e Ejection Fraction is >55%. There is normal LV segmental wall motion. A catheter is seen in the SVC/right atrium. There is a a 2.7 x 2.0 cm. hypoechoic structure attached to the catheter consistent with vegetation.
--- NOTE | 2016-12-16 17:23 | RAD ---
KUB [id number] History: Dobbhoff tube placement. IMPRESSION: Tip of the Dobbhoff tube is seen within the proximal body of the stomach. No obstructive bowel pattern is seen. Mild fecal retention is seen throughout the colon.
[2016-12-16] MEDS: hydrALAZINE 20 MG/ML VIAL. IVP PRN (21:11)
[2016-12-16] MEDS: rOPINIRole 0.25 MG TABLET. PO SCH (21:12)
[2016-12-17] VITALS (24 sets, daily range): BP systolic 99–198; BP diastolic 47–133
--- NOTE | 2016-12-17 01:12 | OP ---
DATE OF SURGERY: 12/16/2016 PROCEDURE: Bronchoscopy, bronchoalveolar lavage. INDICATIONS: The patient with recurrent respiratory failure. She has been intubated times twice, extubated required, reintubation last evening. Nursing and RT reports lots of mucus production. The patient is unable to cough adequately. She is undergoing a therapeutic bronchoscopy. Risks, benefits, and alternatives were reviewed with the patient's family. They consented. SEDATION: The patient was sedated with IV Diprivan. DESCRIPTION OF PROCEDURE: A timeout was performed prior to initiating the procedure. Vital signs and O2 saturation were maintained within normal limits throughout the procedure. Utilizing a disposable bronchoscope, the airways were inspected through the properly placed endotracheal tube. The endotracheal tube was properly positioned above the nunu. The right and left segments and subsegments were visualized. There was minimal amount of secretions, no major mucus plugging. The scope was then advanced into the right lower lobe segment and lavage. A bronchoalveolar lavage was performed. FINDINGS: 1. Properly positioned endotracheal tube. 2. No significant mucus plugging. 3. Bronchoalveolar lavage performed in the right lower lobe. PLAN: We will await the results. The patient tolerated the procedure well with no immediate complications. YASMANY HENSON MD DR: ALYSON/cricket JOB#: [id number] / [id number]
[2016-12-17] MEDS: hydrALAZINE 20 MG/ML VIAL. IVP PRN ×3 (02:02→12:26)
[2016-12-17] MEDS: PROPOFOL 100 ML IV PRN ×4 (04:20→19:20)
[2016-12-17] MEDS: INSULIN ASPART 300 UNITS/3 ML INSULN.PEN SQ SCH ×4 (06:00→18:00)
[2016-12-17] MEDS: CEFTAROLINE FOSAMIL 600 MG in IV NORMAL SALINE 250ML 250 ML IV SCH ×3 (06:13→21:33)
--- NOTE | 2016-12-17 07:56 | PDOC ---
Infectious Disease Note Subjective Subjective Intubated/sedated ROS ROS unobtainable Vital Sign Vital Signs Vital Signs Date Time Temp Pulse Resp B/P (MAP) Pulse Ox O2 Delivery O2 Flow Rate FiO2 12/17/16 07:23 97 Ventilator 12/17/16 06:00 81 20 160/82 (108) 12/17/16 04:00 98.6 98.6 12/16/16 16:00 2.0 Physical Exam PHYSICAL EXAM GENERAL: Intubated/sedated HEENT: Nml conj, Dobbhoff NECK: Supple LUNGS: Decreased airway clear, nonlabored HEART: S1S2, no gallop, no murmur ABD: Soft, NT, BS active : Vaughan TIRE CHANGER: Sedated EXT: Generalized edema. SKIN: + purpura BLE. fading. Less ant chest erythema Port-a-cath. clean Labs Lab Laboratory Tests Test 12/16/16 08:55 12/16/16 09:09 12/16/16 12:37 12/16/16 17:22 O2 Saturation 98 % (92-99) Arterial Blood pH 7.41 (7.35-7.45) Arterial Blood pCO2 at Patient Temp 38 mmHg (35-46) Arterial Blood pO2 at Patient Temp 144 mmHg (75-108) Arterial Blood HCO3 23 mmol/L (21-28) Arterial Blood Base Excess -1 mmol/L (-3-3) FiO2 40 Glucose (Fingerstick) 93 mg/dL (70-99) 101 mg/dL (70-99) 124 mg/dL (70-99) Test 12/17/16 00:34 12/17/16 06:11 Glucose (Fingerstick) 94 mg/dL (70-99) 114 mg/dL (70-99) Objective Assessment Acute resp failure - intubated. Per nursing a lot of plugs suctioned s/p bronch 12/16 - no plugs seen Infected port a cath with veg on port seen on CHARLI 12/16 Sepsis. POA with MRSA bacteremia. 12/06 with repeat 12/10 likely positive -TTE neg. repeat BC positive, 12/10 MRSA pneumonia, POA Hypotension, now off pressor Pancytopenia/anemia PCN allergy, reaction unknown Acute encephalopathy- improved LEONARDO Acute respiratory failure h/o breast cancer, s/p chemo. Port still in place Lupus on Plaquenil Recent E. coli UTI MRSA nares, 11/25, 12/06 Diarrhea. C. diff. neg 12/06 Plan Plan of Care Given thrombocytopenia (avoid Zyvox and has bacteremia)/Acute resp failure ( Avoid Dapto no lung coverage) ? ant chest rash and ? Vanc kinetics - will change to Teflaro to cover lung and blood. Labs pending this am Will need port removed Monitor WBC, Cr and temp. May need to change off Vanc Repeat BC from 12/14 pending am labs Critically ill KEITH DAIGLE MD Dec 17, 2016 07:56
[2016-12-17] MEDS: FUROSEMIDE 40 MG/4 ML VIAL. IVP SCH (08:02)
[2016-12-17] MEDS: HYDROCORTISONE SOD SUCC/PF 100 MG/2 ML VIAL. IV SCH (08:03)
[2016-12-17] MEDS: FAMOTIDINE 20 MG/2 ML VIAL IVP SCH ×2 (08:03→21:23)
[2016-12-17] MEDS: PREGABALIN 75 MG CAPSULE PO SCH (08:03)
[2016-12-17] MEDS: buPROPion 100 MG TABLET PO SCH ×2 (08:03→21:23)
[2016-12-17] MEDS: ALPRAZolam 0.25 MG TABLET PO SCH (08:03)
[2016-12-17] MEDS: IPRATRPIUM/ALBUTEROL 0.5/2.5MG 3 ML NEBU. NEB SCH ×4 (08:06→19:36)
[2016-12-17] MEDS: CHLORHEXIDINE 0.12% 15 ML MOUTHWASH. MM SCH ×2 (08:17→21:23)
[2016-12-17 08:21] LABS: HCO3 ABG 22 mmol/L (21-28); PCO2 ABG 28 mmHg (35-46); PH ABG 7.51 (7.35-7.45); PO2 ABG 100 mmHg (75-108); SAT O2 ABG 97 % (92-99)
[2016-12-17 08:25] LABS: FIO2 ABG 30
[2016-12-17 08:26] LABS: BASO % 0 % (0-3); EOS % 0 % (0-3); HEMATOCRIT 21.3 % (36.0-47.0); HEMOGLOBIN 7.2 g/dL (12.0-15.5); LYMPH # 0.4 x10^3/uL (1.0-4.8); LYMPH % 10 % (24-48); MEAN CORPUSCULAR HEMOGLOBIN 30 pg (25-35); MEAN CORPUSCULAR HGB CONC 34 g/dL (31-37); MEAN CORPUSCULAR VOLUME 90 fL (79-100); MONO % 4 % (0-9); NEUT % 85 % (31-73); PLATELET COUNT 61 x10^3/uL (140-400); RED BLOOD COUNT 2.37 x10^6/uL (3.50-5.40); RED CELL DISTRIBUTION WIDTH 15.6 % (11.5-14.5); WHITE BLOOD COUNT 4.2 x10^3/uL (4.0-11.0)
[2016-12-17 08:43] LABS: CALCIUM 8.5 mg/dL (8.5-10.1); CREATININE 1.1 mg/dL (0.6-1.0); GFR 62.4; POTASSIUM 3.4 mmol/L (3.5-5.1)
[2016-12-17 08:48] LABS: INR 1.2 (0.8-1.1); PROTHROMBIN TIME PATIENT 14.9 SEC (11.7-14.0)
--- NOTE | 2016-12-17 09:34 | PDOC ---
PULMONARY PROGRESS NOTES Subjective ON CHRISTINA AC MODE Vitals Vital Signs Date Time Temp Pulse Resp B/P (MAP) Pulse Ox O2 Delivery O2 Flow Rate FiO2 12/17/16 09:02 99 21 153/74 (100) 98 Ventilator 12/17/16 08:29 2.0 12/17/16 07:30 98.3 98.3 General: Alert HEENT: Other (nc at perrl, orally intubated, nose clear... neck no lap, no thyromegaly) Lungs: Crackles Cardiovascular: S1, S2 Abdomen: Soft, Non-tender Neuro Exam: Alert Extremities: Other (edema) Skin: Warm Labs Laboratory Tests Test 12/15/16 16:58 12/16/16 00:32 12/16/16 02:15 12/16/16 05:01 Glucose (Fingerstick) 138 mg/dL (70-99) 146 mg/dL (70-99) O2 Saturation 98 % (92-99) 99 % (92-99) Arterial Blood pH 7.19 (7.35-7.45) 7.33 (7.35-7.45) Arterial Blood pCO2 at Patient Temp 66 mmHg (35-46) 43 mmHg (35-46) Arterial Blood pO2 at Patient Temp 144 mmHg (75-108) 264 mmHg (75-108) Arterial Blood HCO3 25 mmol/L (21-28) 22 mmol/L (21-28) Arterial Blood Base Excess -5 mmol/L (-3-3) -3 mmol/L (-3-3) FiO2 60 70 Test 12/16/16 06:50 12/16/16 07:10 12/16/16 08:55 12/16/16 09:09 Glucose (Fingerstick) 124 mg/dL (70-99) 93 mg/dL (70-99) White Blood Count 5.4 x10^3/uL (4.0-11.0) Red Blood Count 2.50 x10^6/uL (3.50-5.40) Hemoglobin 7.5 g/dL (12.0-15.5) Hematocrit 22.7 % (36.0-47.0) Mean Corpuscular Volume 91 fL (79-100) Mean Corpuscular Hemoglobin 30 pg (25-35) Mean Corpuscular Hemoglobin Concent 33 g/dL (31-37) Red Cell Distribution Width 15.5 % (11.5-14.5) Platelet Count 50 x10^3/uL (140-400) Neutrophils (%) (Auto) 86 % (31-73) Lymphocytes (%) (Auto) 10 % (24-48) Monocytes (%) (Auto) 4 % (0-9) Eosinophils (%) (Auto) 0 % (0-3) Basophils (%) (Auto) 0 % (0-3) Neutrophils # (Auto) 4.6 x10^3uL (1.8-7.7) Lymphocytes # (Auto) 0.5 x10^3/uL (1.0-4.8) Monocytes # (Auto) 0.2 x10^3/uL (0.0-1.1) Eosinophils # (Auto) 0.0 x10^3/uL (0.0-0.7) Basophils # (Auto) 0.0 x10^3/uL (0.0-0.2) Sodium Level 147 mmol/L (136-145) Potassium Level 3.7 mmol/L (3.5-5.1) Chloride Level 115 mmol/L (98-107) Carbon Dioxide Level 25 mmol/L (21-32) Anion Gap 7 (6-14) Blood Urea Nitrogen 60 mg/dL (7-20) Creatinine 1.0 mg/dL (0.6-1.0) Estimated GFR (Cockcroft-Gault) 69.7 Glucose Level 135 mg/dL (70-99) Calcium Level 9.0 mg/dL (8.5-10.1) Random Vancomycin Level 13.5 mcg/mL O2 Saturation 98 % (92-99) Arterial Blood pH 7.41 (7.35-7.45) Arterial Blood pCO2 at Patient Temp 38 mmHg (35-46) Arterial Blood pO2 at Patient Temp 144 mmHg (75-108) Arterial Blood HCO3 23 mmol/L (21-28) Arterial Blood Base Excess -1 mmol/L (-3-3) FiO2 40 Test 12/16/16 12:37 12/16/16 17:22 12/17/16 00:34 12/17/16 06:11 Glucose (Fingerstick) 101 mg/dL (70-99) 124 mg/dL (70-99) 94 mg/dL (70-99) 114 mg/dL (70-99) Test 12/17/16 08:05 12/17/16 08:20 White Blood Count 4.2 x10^3/uL (4.0-11.0) Red Blood Count 2.37 x10^6/uL (3.50-5.40) Hemoglobin 7.2 g/dL (12.0-15.5) Hematocrit 21.3 % (36.0-47.0) Mean Corpuscular Volume 90 fL (79-100) Mean Corpuscular Hemoglobin 30 pg (25-35) Mean Corpuscular Hemoglobin Concent 34 g/dL (31-37) Red Cell Distribution Width 15.6 % (11.5-14.5) Platelet Count 61 x10^3/uL (140-400) Neutrophils (%) (Auto) 85 % (31-73) Lymphocytes (%) (Auto) 10 % (24-48) Monocytes (%) (Auto) 4 % (0-9) Eosinophils (%) (Auto) 0 % (0-3) Basophils (%) (Auto) 0 % (0-3) Neutrophils # (Auto) 3.6 x10^3uL (1.8-7.7) Lymphocytes # (Auto) 0.4 x10^3/uL (1.0-4.8) Monocytes # (Auto) 0.2 x10^3/uL (0.0-1.1) Eosinophils # (Auto) 0.0 x10^3/uL (0.0-0.7) Basophils # (Auto) 0.0 x10^3/uL (0.0-0.2) Prothrombin Time 14.9 SEC (11.7-14.0) Prothromb Time International Ratio 1.2 (0.8-1.1) Sodium Level 149 mmol/L (136-145) Potassium Level 3.4 mmol/L (3.5-5.1) Chloride Level 114 mmol/L (98-107) Carbon Dioxide Level 26 mmol/L (21-32) Anion Gap 9 (6-14) Blood Urea Nitrogen 54 mg/dL (7-20) Creatinine 1.1 mg/dL (0.6-1.0) Estimated GFR (Cockcroft-Gault) 62.4 Glucose Level 108 mg/dL (70-99) Calcium Level 8.5 mg/dL (8.5-10.1) O2 Saturation 97 % (92-99) Arterial Blood pH 7.51 (7.35-7.45) Arterial Blood pCO2 at Patient Temp 28 mmHg (35-46) Arterial Blood pO2 at Patient Temp 100 mmHg (75-108) Arterial Blood HCO3 22 mmol/L (21-28) Arterial Blood Base Excess -1 mmol/L (-3-3) FiO2 30 Laboratory Tests Test 12/16/16 12:37 12/16/16 17:22 12/17/16 00:34 12/17/16 06:11 Glucose (Fingerstick) 101 mg/dL (70-99) 124 mg/dL (70-99) 94 mg/dL (70-99) 114 mg/dL (70-99) Test 12/17/16 08:05 12/17/16 08:20 White Blood Count 4.2 x10^3/uL (4.0-11.0) Red Blood Count 2.37 x10^6/uL (3.50-5.40) Hemoglobin 7.2 g/dL (12.0-15.5) Hematocrit 21.3 % (36.0-47.0) Mean Corpuscular Volume 90 fL (79-100) Mean Corpuscular Hemoglobin 30 pg (25-35) Mean Corpuscular Hemoglobin Concent 34 g/dL (31-37) Red Cell Distribution Width 15.6 % (11.5-14.5) Platelet Count 61 x10^3/uL (140-400) Neutrophils (%) (Auto) 85 % (31-73) Lymphocytes (%) (Auto) 10 % (24-48) Monocytes (%) (Auto) 4 % (0-9) Eosinophils (%) (Auto) 0 % (0-3) Basophils (%) (Auto) 0 % (0-3) Neutrophils # (Auto) 3.6 x10^3uL (1.8-7.7) Lymphocytes # (Auto) 0.4 x10^3/uL (1.0-4.8) Monocytes # (Auto) 0.2 x10^3/uL (0.0-1.1) Eosinophils # (Auto) 0.0 x10^3/uL (0.0-0.7) Basophils # (Auto) 0.0 x10^3/uL (0.0-0.2) Prothrombin Time 14.9 SEC (11.7-14.0) Prothromb Time International Ratio 1.2 (0.8-1.1) Sodium Level 149 mmol/L (136-145) Potassium Level 3.4 mmol/L (3.5-5.1) Chloride Level 114 mmol/L (98-107) Carbon Dioxide Level 26 mmol/L (21-32) Anion Gap 9 (6-14) Blood Urea Nitrogen 54 mg/dL (7-20) Creatinine 1.1 mg/dL (0.6-1.0) Estimated GFR (Cockcroft-Gault) 62.4 Glucose Level 108 mg/dL (70-99) Calcium Level 8.5 mg/dL (8.5-10.1) O2 Saturation 97 % (92-99) Arterial Blood pH 7.51 (7.35-7.45) Arterial Blood pCO2 at Patient Temp 28 mmHg (35-46) Arterial Blood pO2 at Patient Temp 100 mmHg (75-108) Arterial Blood HCO3 22 mmol/L (21-28) Arterial Blood Base Excess -1 mmol/L (-3-3) FiO2 30 Medications Active Scripts Medications Dose Route/Sig Max Daily Dose Days Date Category Oxycodone Hcl 5 Mg Tablet 5 Mg PO PRN Q6HRS PRN 11/28/16 Rx Albuterol Sulfate Neb Soln (Albuterol Sulfate) 1.25 Mg/3 Ml Vial.neb 1 Vial NEB Q6HRS 11/25/16 Reported Ranitidine Hcl 150 Mg Capsule 75 Mg PO DAILY 11/25/16 Reported Ondansetron Hcl 8 Mg Tablet 8 Mg PO DAILY 11/25/16 Reported Azithromycin Tablet (Azithromycin) 250 Mg Tablet 250 Mg PO DAILY 11/25/16 Reported Bupropion Hcl 100 Mg Tablet 100 Mg PO BID 11/25/16 Reported Nasal Allergy Beckley (Cromolyn Sodium) 13 Ml Beckley.pump 13 Ml NS DAILY 11/25/16 Reported Gabapentin 300 Mg Capsule 300 Mg PO BID 11/25/16 Reported Hydroxyzine Hcl 25 Mg Tablet 25 Mg PO DAILY 11/25/16 Reported Nystatin 15 Gm Cream..g. 15 Gm TP BID 11/25/16 Reported Duloxetine Hcl 60 Mg Capsule.dr 60 Mg PO DAILY 11/25/16 Reported Clonidine Hcl 0.1 Mg Tablet 0.1 Mg PO DAILY 11/25/16 Reported Lisinopril 20 Mg Tablet 20 Mg PO DAILY 11/25/16 Reported Famciclovir 125 Mg Tablet 125 Mg PO DAILY 11/25/16 Reported Ropinirole Hcl 0.25 Mg Tablet 0.25 Mg PO DAILY 11/25/16 Reported Hydroxychloroquine Sulfate 200 Mg Tablet 200 Mg PO DAILY 11/25/16 Reported Lyrica (Pregabalin) 150 Mg Capsule 150 Mg PO DAILY 11/25/16 Reported Furosemide 20 Mg Tablet 20 Mg PO DAILY 11/25/16 Reported Alprazolam 0.25 Mg Tablet 0.25 Mg PO 11/25/16 Reported Oxycodone Hcl 5 Mg Tablet 5 Mg PO PRN Q4HRS PRN 11/25/16 Reported Ibuprofen 400 Mg Tablet 400 Mg PO PRN DAILY PRN 05/11/15 Reported Multivitamins (Multivitamin) 1 Each Tablet 1 Each PO DAILY 05/11/15 Reported Oxycodone-Acetaminophen 10-325 (Oxycodone Hcl/Acetaminophen) 1 Each Tablet 1 Each PO PRN Q4-6HRS PRN 05/11/15 Reported Plaquenil (Hydroxychloroquine Sulfate) 200 Mg Tablet 200 Mg PO BID 08/19/13 Reported Comments CXR REVIEWED CHF Impression . 1. Acute respiratory failure, multifactorial in etiology. THIRD INTUBATION 12/16 2. Abnormal chest x-ray could be secondary to volume overload, congestive heart failure or pneumonia. 3. Septic shock, bacteremia, g + cocci 4. Hypotension, resolved. 5. Pancytopenia. 6. Systemic lupus erythematosus, immunocompromised. 7. Hyponatremia. 8. Acute kidney injury. 9. History of breast cancer. 10. Hepatitis C. 11. Gastroesophageal reflux disease. 12. MRSA colonization. 13. ACUTE Blood loss anemia 14. POSITIVE CHARLI 12/16 Plan . ANTIBX PER DI SUSPECT MOST OF CXR FINDINGS RELATED TO EDEMA, NEEDS LASIX RESP STATUS DETERIORATED REINTUBATED 12/16 FOR THIRD TIME SHE NEEDS A TRACH SPOKE WITH DAUGHTER YESTERDAY, DECISION TO BE MADE SOON TUBE FEEDING REINTUBATED 12/10 EXTUBATED 12/13 UPPER EXT EDEMA TRANSFUSE NEEDED YASMANY HENSON MD Dec 17, 2016 09:34
--- NOTE | 2016-12-17 10:09 | PDOC ---
PROGRESS NOTES Chief Complaint Chief Complaint 1. Severe sepsis with Shock, s/p pressors 2. MRSA bacteremia, + nares 2. Pancytopenia: background of sepsis 3. Acute respiratory failure RE intubation 12/11 - extubated 12/13, RE INTUBATED 12/15 4. Malnutrition: MOderate - to severe 5. Lupus, immuno suppressive 6. Recently treated urinary tract infection, Escherichia coli. 7. Hyponatremia.:resolved 8. Mild hyperkalemia:resolved. now hypokalemia 9. Hx breast CA 10. MEtabolic encephalopathy - multifactorial 12/14 History of Present Illness History of Present Illness Seen in ICU Extubated 12/13, transferred to 6th floor but had stridor overnight, and needed to be RE iNTUABTED again the SECOND time this admission Pancytopenia, STABLE k 3.4 MILDLY LOW NA 129 - from 147 aWAKE, INtubated, NOds - she knows she is planned for trach Initial plans [facility]ha - but now a very poor candidate and prognsois very poor PALLIATIVE on case, now DNR DNI Getting lasix 40 IV daily, UO good, CReat 1,1, K 3.4 CARds on case - no lasix onboard PLAn: Replace Kcl 20 per pEG x 1 TRach plans SW for LTAC screen COnt IV lasix MOnitor lytes daily, DNR/DNI Outside DNR signed COnt water flushes SCds only pls Dw 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 The left atrium is mildly dilated. The right atrium size is normal. The aortic valve is calcified but opens well. Doppler and Color-flow revealed mild mitral regurgitation. The mitral valve is normal in structure Mitral annular calcification is mild. Doppler and Color Flow revealed mild tricuspid regurgitation. There is mild pulmonary hypertension. The PA pressure was estimated at 34 mmHg. Doppler and Color Flow revealed trace pulmonic valvular regurgitation. There is a trace of pericardial effusion. Vitals Vitals Vital Signs Date Time Temp Pulse Resp B/P (MAP) Pulse Ox O2 Delivery O2 Flow Rate FiO2 12/17/16 09:20 96 Ventilator 12/17/16 09:02 99 21 153/74 (100) 12/17/16 08:29 2.0 12/17/16 07:30 98.3 98.3 Physical Exam General: Alert, Oriented X3 Heart: Normal S1, Normal S2 Lungs: Clear, Wheezing Abdomen: Normal bowel sounds, Soft Extremities: No clubbing Skin: Other Labs LABS Laboratory Tests Test 12/16/16 12:37 12/16/16 17:22 12/17/16 00:34 12/17/16 06:11 Glucose (Fingerstick) 101 mg/dL (70-99) 124 mg/dL (70-99) 94 mg/dL (70-99) 114 mg/dL (70-99) Test 12/17/16 08:05 12/17/16 08:20 White Blood Count 4.2 x10^3/uL (4.0-11.0) Red Blood Count 2.37 x10^6/uL (3.50-5.40) Hemoglobin 7.2 g/dL (12.0-15.5) Hematocrit 21.3 % (36.0-47.0) Mean Corpuscular Volume 90 fL (79-100) Mean Corpuscular Hemoglobin 30 pg (25-35) Mean Corpuscular Hemoglobin Concent 34 g/dL (31-37) Red Cell Distribution Width 15.6 % (11.5-14.5) Platelet Count 61 x10^3/uL (140-400) Neutrophils (%) (Auto) 85 % (31-73) Lymphocytes (%) (Auto) 10 % (24-48) Monocytes (%) (Auto) 4 % (0-9) Eosinophils (%) (Auto) 0 % (0-3) Basophils (%) (Auto) 0 % (0-3) Neutrophils # (Auto) 3.6 x10^3uL (1.8-7.7) Lymphocytes # (Auto) 0.4 x10^3/uL (1.0-4.8) Monocytes # (Auto) 0.2 x10^3/uL (0.0-1.1) Eosinophils # (Auto) 0.0 x10^3/uL (0.0-0.7) Basophils # (Auto) 0.0 x10^3/uL (0.0-0.2) Prothrombin Time 14.9 SEC (11.7-14.0) Prothromb Time International Ratio 1.2 (0.8-1.1) Sodium Level 149 mmol/L (136-145) Potassium Level 3.4 mmol/L (3.5-5.1) Chloride Level 114 mmol/L (98-107) Carbon Dioxide Level 26 mmol/L (21-32) Anion Gap 9 (6-14) Blood Urea Nitrogen 54 mg/dL (7-20) Creatinine 1.1 mg/dL (0.6-1.0) Estimated GFR (Cockcroft-Gault) 62.4 Glucose Level 108 mg/dL (70-99) Calcium Level 8.5 mg/dL (8.5-10.1) O2 Saturation 97 % (92-99) Arterial Blood pH 7.51 (7.35-7.45) Arterial Blood pCO2 at Patient Temp 28 mmHg (35-46) Arterial Blood pO2 at Patient Temp 100 mmHg (75-108) Arterial Blood HCO3 22 mmol/L (21-28) Arterial Blood Base Excess -1 mmol/L (-3-3) FiO2 30 Review of Systems Review of Systems intubated Assessment and Plan Assessmemt and Plan Problems Medical Problems: (1) Respiratory failure Status: Acute Problems: Comment Review of Relevant I have reviewed the following items anselmo (where applicable) has been applied. Labs Laboratory Tests Test 12/15/16 16:58 12/16/16 00:32 12/16/16 02:15 12/16/16 05:01 Glucose (Fingerstick) 138 mg/dL (70-99) 146 mg/dL (70-99) O2 Saturation 98 % (92-99) 99 % (92-99) Arterial Blood pH 7.19 (7.35-7.45) 7.33 (7.35-7.45) Arterial Blood pCO2 at Patient Temp 66 mmHg (35-46) 43 mmHg (35-46) Arterial Blood pO2 at Patient Temp 144 mmHg (75-108) 264 mmHg (75-108) Arterial Blood HCO3 25 mmol/L (21-28) 22 mmol/L (21-28) Arterial Blood Base Excess -5 mmol/L (-3-3) -3 mmol/L (-3-3) FiO2 60 70 Test 12/16/16 06:50 12/16/16 07:10 12/16/16 08:55 12/16/16 09:09 Glucose (Fingerstick) 124 mg/dL (70-99) 93 mg/dL (70-99) White Blood Count 5.4 x10^3/uL (4.0-11.0) Red Blood Count 2.50 x10^6/uL (3.50-5.40) Hemoglobin 7.5 g/dL (12.0-15.5) Hematocrit 22.7 % (36.0-47.0) Mean Corpuscular Volume 91 fL (79-100) Mean Corpuscular Hemoglobin 30 pg (25-35) Mean Corpuscular Hemoglobin Concent 33 g/dL (31-37) Red Cell Distribution Width 15.5 % (11.5-14.5) Platelet Count 50 x10^3/uL (140-400) Neutrophils (%) (Auto) 86 % (31-73) Lymphocytes (%) (Auto) 10 % (24-48) Monocytes (%) (Auto) 4 % (0-9) Eosinophils (%) (Auto) 0 % (0-3) Basophils (%) (Auto) 0 % (0-3) Neutrophils # (Auto) 4.6 x10^3uL (1.8-7.7) Lymphocytes # (Auto) 0.5 x10^3/uL (1.0-4.8) Monocytes # (Auto) 0.2 x10^3/uL (0.0-1.1) Eosinophils # (Auto) 0.0 x10^3/uL (0.0-0.7) Basophils # (Auto) 0.0 x10^3/uL (0.0-0.2) Sodium Level 147 mmol/L (136-145) Potassium Level 3.7 mmol/L (3.5-5.1) Chloride Level 115 mmol/L (98-107) Carbon Dioxide Level 25 mmol/L (21-32) Anion Gap 7 (6-14) Blood Urea Nitrogen 60 mg/dL (7-20) Creatinine 1.0 mg/dL (0.6-1.0) Estimated GFR (Cockcroft-Gault) 69.7 Glucose Level 135 mg/dL (70-99) Calcium Level 9.0 mg/dL (8.5-10.1) Random Vancomycin Level 13.5 mcg/mL O2 Saturation 98 % (92-99) Arterial Blood pH 7.41 (7.35-7.45) Arterial Blood pCO2 at Patient Temp 38 mmHg (35-46) Arterial Blood pO2 at Patient Temp 144 mmHg (75-108) Arterial Blood HCO3 23 mmol/L (21-28) Arterial Blood Base Excess -1 mmol/L (-3-3) FiO2 40 Test 12/16/16 12:37 12/16/16 17:22 12/17/16 00:34 12/17/16 06:11 Glucose (Fingerstick) 101 mg/dL (70-99) 124 mg/dL (70-99) 94 mg/dL (70-99) 114 mg/dL (70-99) Test 12/17/16 08:05 12/17/16 08:20 White Blood Count 4.2 x10^3/uL (4.0-11.0) Red Blood Count 2.37 x10^6/uL (3.50-5.40) Hemoglobin 7.2 g/dL (12.0-15.5) Hematocrit 21.3 % (36.0-47.0) Mean Corpuscular Volume 90 fL (79-100) Mean Corpuscular Hemoglobin 30 pg (25-35) Mean Corpuscular Hemoglobin Concent 34 g/dL (31-37) Red Cell Distribution Width 15.6 % (11.5-14.5) Platelet Count 61 x10^3/uL (140-400) Neutrophils (%) (Auto) 85 % (31-73) Lymphocytes (%) (Auto) 10 % (24-48) Monocytes (%) (Auto) 4 % (0-9) Eosinophils (%) (Auto) 0 % (0-3) Basophils (%) (Auto) 0 % (0-3) Neutrophils # (Auto) 3.6 x10^3uL (1.8-7.7) Lymphocytes # (Auto) 0.4 x10^3/uL (1.0-4.8) Monocytes # (Auto) 0.2 x10^3/uL (0.0-1.1) Eosinophils # (Auto) 0.0 x10^3/uL (0.0-0.7) Basophils # (Auto) 0.0 x10^3/uL (0.0-0.2) Prothrombin Time 14.9 SEC (11.7-14.0) Prothromb Time International Ratio 1.2 (0.8-1.1) Sodium Level 149 mmol/L (136-145) Potassium Level 3.4 mmol/L (3.5-5.1) Chloride Level 114 mmol/L (98-107) Carbon Dioxide Level 26 mmol/L (21-32) Anion Gap 9 (6-14) Blood Urea Nitrogen 54 mg/dL (7-20) Creatinine 1.1 mg/dL (0.6-1.0) Estimated GFR (Cockcroft-Gault) 62.4 Glucose Level 108 mg/dL (70-99) Calcium Level 8.5 mg/dL (8.5-10.1) O2 Saturation 97 % (92-99) Arterial Blood pH 7.51 (7.35-7.45) Arterial Blood pCO2 at Patient Temp 28 mmHg (35-46) Arterial Blood pO2 at Patient Temp 100 mmHg (75-108) Arterial Blood HCO3 22 mmol/L (21-28) Arterial Blood Base Excess -1 mmol/L (-3-3) FiO2 30 Laboratory Tests Test 12/16/16 12:37 12/16/16 17:22 12/17/16 00:34 12/17/16 06:11 Glucose (Fingerstick) 101 mg/dL (70-99) 124 mg/dL (70-99) 94 mg/dL (70-99) 114 mg/dL (70-99) Test 12/17/16 08:05 12/17/16 08:20 White Blood Count 4.2 x10^3/uL (4.0-11.0) Red Blood Count 2.37 x10^6/uL (3.50-5.40) Hemoglobin 7.2 g/dL (12.0-15.5) Hematocrit 21.3 % (36.0-47.0) Mean Corpuscular Volume 90 fL (79-100) Mean Corpuscular Hemoglobin 30 pg (25-35) Mean Corpuscular Hemoglobin Concent 34 g/dL (31-37) Red Cell Distribution Width 15.6 % (11.5-14.5) Platelet Count 61 x10^3/uL (140-400) Neutrophils (%) (Auto) 85 % (31-73) Lymphocytes (%) (Auto) 10 % (24-48) Monocytes (%) (Auto) 4 % (0-9) Eosinophils (%) (Auto) 0 % (0-3) Basophils (%) (Auto) 0 % (0-3) Neutrophils # (Auto) 3.6 x10^3uL (1.8-7.7) Lymphocytes # (Auto) 0.4 x10^3/uL (1.0-4.8) Monocytes # (Auto) 0.2 x10^3/uL (0.0-1.1) Eosinophils # (Auto) 0.0 x10^3/uL (0.0-0.7) Basophils # (Auto) 0.0 x10^3/uL (0.0-0.2) Prothrombin Time 14.9 SEC (11.7-14.0) Prothromb Time International Ratio 1.2 (0.8-1.1) Sodium Level 149 mmol/L (136-145) Potassium Level 3.4 mmol/L (3.5-5.1) Chloride Level 114 mmol/L (98-107) Carbon Dioxide Level 26 mmol/L (21-32) Anion Gap 9 (6-14) Blood Urea Nitrogen 54 mg/dL (7-20) Creatinine 1.1 mg/dL (0.6-1.0) Estimated GFR (Cockcroft-Gault) 62.4 Glucose Level 108 mg/dL (70-99) Calcium Level 8.5 mg/dL (8.5-10.1) O2 Saturation 97 % (92-99) Arterial Blood pH 7.51 (7.35-7.45) Arterial Blood pCO2 at Patient Temp 28 mmHg (35-46) Arterial Blood pO2 at Patient Temp 100 mmHg (75-108) Arterial Blood HCO3 22 mmol/L (21-28) Arterial Blood Base Excess -1 mmol/L (-3-3) FiO2 30 Microbiology 12/14/16 Blood Culture - Preliminary, Resulted NO GROWTH AFTER 3 DAYS 12/09/16 Stool Culture - Final, Complete 12/09/16 Stool Culture Result 1 (LUCINA) - Final, Complete 12/09/16 Campylobacter Antigen Assay - Final, Complete 12/09/16 Campylobactor Result 1 - Final, Complete 12/09/16 Shiga Toxin Test - Final, Complete 12/08/16 Sputum Culture - Final, Complete 12/08/16 Sputum Result 1 - Final, Complete 6/18/17 Antimicrobic Susceptibility - Final, Complete 12/06/16 Urine Culture - Final, Complete 12/06/16 Urine Culture Result 1 (LUCINA) - Final, Complete Medications Current Medications Sodium Chloride 1,000 ml @ 1,000 mls/hr 1X ONCE IV Last administered on 16:18; Start 12/06/16 at 16:15; Stop 12/06/16 at 17:14; Status DC Vancomycin HCl (Vanco Per Pharmacy) 1 each PRN DAILY PRN MC SEE COMMENTS Last administered on 12/15/16 15:18; Start 12/06/16 at 17:00; Stop 12/16/16 at 09:58 ; Status DC Levofloxacin/ Dextrose 150 ml @ 100 mls/hr 1X ONCE IV Last administered on 20:04; Start 12/06/16 at 17:00; Stop 12/06/16 at 18:29; Status DC Vancomycin HCl 2 gm/Sodium Chloride 500 ml @ 250 mls/hr 1X ONCE IV Last administered on 12/06/16 17:11; Start 12/06/16 at 17:00; Stop 12/06/16 at 18:59 ; Status DC Sodium Chloride 1,000 ml @ 1,000 mls/hr 1X ONCE IV Last administered on 17:09; Start 12/06/16 at 17:00; Stop 12/06/16 at 17:59; Status DC Meropenem 500 mg/ Sodium Chloride 50 ml @ 100 mls/hr Q8HRS IV Last administered on 12/10/16 07:30; Start 12/06/16 at 18:00; Stop 12/10/16 at 08:13 ; Status DC Dopamine HCl/ Dextrose 250 ml @ 16.414 mls/ hr 1X ONCE IV Last administered on 12/06/16 17:41; Start 12/06/16 at 17:15; Stop 12/07/16 at 08:28; Status DC Etomidate (Amidate) 20 mg 1X ONCE IV Last administered on 12/06/16 17:19; Start 12/06/16 at 17:15; Stop 12/06/16 at 17:17; Status DC Succinylcholine Chloride (Anectine) 100 mg 1X ONCE IV Last administered on 17:20; Start 12/06/16 at 17:15; Stop 12/06/16 at 17:17; Status DC Vancomycin HCl 1.25 gm/Sodium Chloride 250 ml @ 167 mls/hr Q24H IV Last administered on 12/07/16 18:39; Start 12/07/16 at 17:00; Stop 12/07/16 at 23:00 ; Status DC Vancomycin HCl 1 each 1X ONCE MC ; Start 12/07/16 at 16:30; Stop 12/07/16 at 16 :31; Status Cancel Midazolam HCl 100 ml @ As Directed STK-MED ONCE IV ; Start 12/06/16 at 17:36; Stop 12/06/16 at 17:37; Status DC Midazolam HCl (Versed) 5 mg STK-MED ONCE .ROUTE ; Start 12/06/16 at 17:37; Stop 12/06/16 at 17:38; Status DC Midazolam HCl (Versed) 5 mg PRN Q10MIN PRN IV SEDATION; Start 12/06/16 at 17:45 Hydrocortisone Sodium Succinate (Solu-CORTEF) 100 mg Q8HRS IV Last administered on 12/09/16 13:55; Start 12/06/16 at 18:30; Stop 12/09/16 at 16:21 ; Status DC Norepinephrine Bitartrate 16 mg/ Sodium Chloride 266 ml @ 0 mls/hr CONT PRN IV SEE I/O RECORD; Start 12/06/16 at 19:00; Status UNV Pantoprazole Sodium (Protonix Vial) 40 mg DAILYAC IVP Last administered on 12/15 08:40; Start 12/06/16 at 19:30; Stop 12/15/16 at 10:35; Status DC Acetaminophen (Tylenol) 325 mg PRN Q6HRS PRN PO MILD PAIN / TEMP; Start at 19:00 Hydralazine HCl (Apresoline) 10 mg PRN Q4HRS PRN IVP ELEVATED BP, SEE COMMENTS Last administered on 12/17/16 08:22; Start 12/06/16 at 19:00 Ondansetron HCl (Zofran) 4 mg PRN Q8HRS PRN IV NAUSEA/VOMITING; Start 12/06/16 at 19:00; Stop 12/12/16 at 08:31; Status DC Albuterol Sulfate (Ventolin Neb Soln) 2.5 mg PRN Q4HRS PRN NEB SHORTNESS OF BREATH Last administered on 12/16/16 00:43; Start 12/06/16 at 19:00 Norepinephrine Bitartrate 250 ml @ 1.875 mls/ hr CONT PRN IV SEE I/O RECORD Last administered on 12/06/16 19:55; Start 12/06/16 at 19:00; Stop 12/15/16 at 10:33; Status DC Sodium Chloride 1,000 ml @ 1,000 mls/hr 1X ONCE IV Last administered on 19:56; Start 12/06/16 at 19:15; Stop 12/06/16 at 20:14; Status DC Sodium Chloride 1,000 ml @ 75 mls/hr [id number] IV Last administered on 21:55; Start 12/06/16 at 19:15; Stop 12/09/16 at 18:44; Status DC Pneumococcal Polyvalent Vaccine (Do NOT chart on this placeholder) 1 each PRN DAILY PRN MC PT UNABLE TO RESPOND; Start 12/07/16 at 09:30; Status Cancel Pneumococcal Polyvalent Vaccine (Pneumovax 23) 0.5 ml ONCE ONCE VAX IM ; Start 12/08/16 at 09:00; Stop 12/08/16 at 09:01; Status DC Albuterol/ Ipratropium (Duoneb) 3 ml RTQID NEB Last administered on 12/17/16 08:06; Start 12/07/16 at 12:00 Midazolam HCl 100 ml @ 0 mls/hr CONT PRN IV SEE I/O RECORD Last administered on 12/07/16 10:29; Start 12/07/16 at 10:15; Stop 12/13/16 at 20:41; Status DC Fentanyl Citrate (Fentanyl 2ml Vial) 25 mcg PRN Q1HR PRN IV PAIN Last administered on 12/15/16 00:34; Start 12/07/16 at 10:45 Pantoprazole Sodium (Protonix Vial) 40 mg DAILYAC IVP ; Start 12/07/16 at 17:00 ; Status Cancel Vancomycin HCl 1.25 gm/Sodium Chloride 250 ml @ 167 mls/hr Q12H IV Last administered on 12/13/16 18:25; Start 12/08/16 at 06:00; Stop 12/13/16 at 18:54 ; Status DC Vancomycin HCl 1 each 1X ONCE MC ; Start 12/08/16 at 17:30; Stop 12/08/16 at 17 :31; Status DC Vancomycin HCl 1 gm/Sodium Chloride 250 ml @ 250 mls/hr Q12H IV ; Start at 18:00; Status Cancel Chlorhexidine Gluconate (Peridex) 15 ml BID SWSP ; Start 12/09/16 at 21:00; Stop 12/10/16 at 07:23; Status DC Hydrocortisone Sodium Succinate (Solu-CORTEF) 100 mg Q12HR IV Last administered on 12/14/16 08:53; Start 12/09/16 at 21:00; Stop 12/14/16 at 16:52 ; Status DC Amino Acids/ Glycerin/ Electrolytes 1,000 ml @ 40 mls/hr Q24H IV Last administered on 12/09/16 17:56; Start 12/09/16 at 17:00; Stop 12/10/16 at 14:16 ; Status DC Alprazolam (Xanax) 0.25 mg DAILY PO Last administered on 12/17/16 08:03; Start 12/10/16 at 09:00 Bupropion HCl (Wellbutrin) 100 mg BID PO Last administered on 12/17/16 08:03; Start 12/09/16 at 21:00 Gabapentin (Neurontin) 300 mg BID PO ; Start 12/09/16 at 21:00; Status Cancel Ropinirole HCl (Requip) 0.25 mg QHS PO Last administered on 12/16/16 21:12; Start 12/09/16 at 21:00 Pregabalin (Lyrica) 150 mg DAILY PO Last administered on 12/17/16 08:03; Start 12/10/16 at 09:00 Epinephrine (S2 Racepinephrine) 0.5 ml 1X ONCE NEB Last administered on 07:45; Start 12/10/16 at 07:45; Stop 12/10/16 at 07:46; Status DC Lorazepam (Ativan) 2 mg 1X ONCE IV Last administered on 12/10/16 08:33; Start 12/10/16 at 08:00; Stop 12/10/16 at 08:01; Status DC Succinylcholine Chloride (Anectine) 200 mg STK-MED ONCE .ROUTE ; Start 12/10/16 at 10:28; Stop 12/10/16 at 10:29; Status DC Propofol 100 ml @ As Directed STK-MED ONCE IV ; Start 12/10/16 at 10:28; Stop 12/10/16 at 10:29; Status DC Calcium Gluconate (Calcium Gluconate) 1,000 mg 1X ONCE IVP Last administered on 12/10/16 11:41; Start 12/10/16 at 11:30; Stop 12/10/16 at 11:31; Status DC Succinylcholine Chloride (Anectine) 200 mg 1X ONCE IV Last administered on 11:41; Start 12/10/16 at 11:30; Stop 12/10/16 at 11:31; Status DC Propofol 100 ml @ 0 mls/hr CONT PRN IV SEE I/O RECORD Last administered on 12/13 00:57; Start 12/10/16 at 11:30; Stop 12/13/16 at 20:41; Status DC Insulin Aspart (NovoLOG) 0-5 UNITS TIDWMEALS SQ ; Start 12/11/16 at 08:00; Stop 12/11/16 at 08:00; Status DC Dextrose (Dextrose 50%-Water Syringe) 12.5 gm PRN Q15MIN PRN IV SEE COMMENTS; Start 12/10/16 at 20:30 Insulin Aspart (NovoLOG) 0-5 UNITS Q6HRS SQ Last administered on 12/13/16 06: 25; Start 12/11/16 at 00:00 Chlorhexidine Gluconate (Peridex) 15 ml BID MM Last administered on 12/13/16 09:46; Start 12/11/16 at 21:00; Stop 12/13/16 at 20:41; Status DC Fentanyl Citrate (Fentanyl 2ml Vial) 25 mcg PRN Q5MIN PRN IV MILD PAIN; Start 12/12/16 at 07:00; Stop 12/13/16 at 06:59; Status DC Fentanyl Citrate (Fentanyl 2ml Vial) 50 mcg PRN Q5MIN PRN IV MODERATE PAIN; Start 12/12/16 at 07:00; Stop 12/13/16 at 06:59; Status DC Morphine Sulfate 1 mg PRN Q10MIN PRN IV SEVERE PAIN; Start 12/12/16 at 07:00; Stop 12/13/16 at 06:59; Status DC Ringer's Solution 1,000 ml @ 30 mls/hr Q24H IV ; Start 12/12/16 at 07:00; Stop 12/12/16 at 18:59; Status DC Lidocaine HCl 2 ml PRN 1X PRN ID PRIOR TO IV START; Start 12/12/16 at 07:00; Stop 12/13/16 at 06:59; Status DC Hydromorphone HCl (Dilaudid) 0.5 mg PRN Q10MIN PRN IV SEV PAIN, Second choice; Start 12/12/16 at 07:00; Stop 12/13/16 at 06:59; Status DC Prochlorperazine Edisylate (Compazine) 5 mg PACU PRN PRN IV NAUSEA, MRX1; Start 12/12/16 at 07:00; Stop 12/13/16 at 06:59; Status DC Lidocaine HCl (Lidocaine Pf 2% Vial) 5 ml STK-MED ONCE .ROUTE ; Start 12/12/16 at 08:15; Stop 12/12/16 at 08:16; Status DC Propofol 0 ml @ As Directed STK-MED ONCE IV ; Start 12/12/16 at 08:15; Stop at 08:16; Status DC Ondansetron HCl (Zofran) 4 mg PRN Q6HRS PRN IV NAUSEA/VOMITING Last administered on 12/14/16 01:41; Start 12/12/16 at 19:00 Acetaminophen (Tylenol) 650 mg PRN Q6HRS PRN PEG MILD PAIN / TEMP Last administered on 12/15/16 17:25; Start 12/12/16 at 08:30 Vancomycin HCl 1 each 1X ONCE MC Last administered on 12/13/16 10:00; Start 12/13/16 at 10:00; Stop 12/13/16 at 10:01; Status DC Furosemide (Lasix) 40 mg 1X ONCE IVP Last administered on 12/13/16 11:31; Start 12/13/16 at 11:15; Stop 12/13/16 at 11:16; Status DC Amino Acids/ Glycerin/ Electrolytes 1,000 ml @ 75 mls/hr Q24H14V IV Last administered on 12/15/16 04:25; Start 12/13/16 at 21:00; Stop 12/15/16 at 10:33 ; Status DC Vancomycin HCl 1 each 1X ONCE MC Last administered on 12/14/16 09:00; Start 12/14/16 at 09:00; Stop 12/14/16 at 09:01; Status DC Vancomycin HCl 1 each 1X ONCE MC ; Start 12/15/16 at 06:00; Stop 12/15/16 at 06 :01; Status Cancel Vancomycin HCl 1 each 1X ONCE MC Last administered on 12/15/16 06:00; Start 12/15/16 at 06:00; Stop 12/15/16 at 06:01; Status DC Alteplase, Recombinant (Cathflo) 2 mg 1X ONCE INT CAT Last administered on 14:58; Start 12/14/16 at 14:30; Stop 12/14/16 at 14:34; Status DC Hydrocortisone Sodium Succinate (Solu-CORTEF) 100 mg DAILY IV Last administered on 12/17/16 08:03; Start 12/15/16 at 09:00 Haloperidol Lactate (Haldol) 2.5 mg PRN Q4HRS PRN IVP AGITATION Last administered on 12/15/16 20:35; Start 12/15/16 at 06:45 Lansoprazole (Prevacid) 30 mg DAILYAC FT ; Start 12/16/16 at 07:30; Stop at 10:00; Status DC Vancomycin HCl 1 gm/Sodium Chloride 250 ml @ 250 mls/hr Q48H IV ; Start at 21:00; Status Cancel Morphine Sulfate 2 mg PRN Q2HR PRN IV SEVERE PAIN Last administered on 01:19; Start 12/15/16 at 21:15 Zolpidem Tartrate (Ambien) 5 mg PRN QHS PRN PO INSOMNIA Last administered on 00:17; Start 12/16/16 at 00:00 Propofol 100 ml @ As Directed STK-MED ONCE IV ; Start 12/16/16 at 02:34; Stop 12/16/16 at 02:35; Status DC Succinylcholine Chloride (Anectine) 200 mg STK-MED ONCE .ROUTE ; Start 12/16/16 at 02:57; Stop 12/16/16 at 02:58; Status DC Succinylcholine Chloride (Anectine) 200 mg STK-MED ONCE .ROUTE ; Start 12/16/16 at 02:57; Stop 12/16/16 at 02:58; Status DC Etomidate (Amidate) 20 mg STK-MED ONCE IV ; Start 12/16/16 at 02:58; Stop at 02:59; Status DC Propofol 100 ml @ 0 mls/hr CONT PRN IV SEE I/O RECORD; Start 12/16/16 at 04:15 ; Stop 12/16/16 at 08:04; Status DC Chlorhexidine Gluconate (Peridex) 15 ml BID MM Last administered on 12/17/16 08:17; Start 12/16/16 at 09:00 Propofol (Diprivan) 1,000 mg STK-MED ONCE IV ; Start 12/16/16 at 03:00; Stop at 07:11; Status DC Furosemide (Lasix) 40 mg DAILY IVP Last administered on 12/17/16 08:02; Start 12/16/16 at 09:00 Ceftaroline Fosamil 600 mg/ Sodium Chloride 250 ml @ 250 mls/hr Q8HRS IV Last administered on 12/17/16 06:13; Start 12/16/16 at 10:00 Famotidine (Pepcid) 20 mg BID IVP Last administered on 12/17/16 08:03; Start 12/16/16 at 10:30 Propofol 100 ml @ 0 mls/hr CONT PRN IV PER PROTOCOL Last administered on 04:20; Start 12/16/16 at 06:45 Fentanyl Citrate (Fentanyl 2ml Vial) 25 mcg PRN Q5MIN PRN IV MILD PAIN; Start 12/16/16 at 12:45; Stop 12/17/16 at 12:44 Fentanyl Citrate (Fentanyl 2ml Vial) 50 mcg PRN Q5MIN PRN IV MODERATE PAIN; Start 12/16/16 at 12:45; Stop 12/17/16 at 12:44 Morphine Sulfate 1 mg PRN Q10MIN PRN IV SEVERE PAIN; Start 12/16/16 at 12:45; Stop 12/17/16 at 12:44 Ringer's Solution 1,000 ml @ 30 mls/hr Q24H IV ; Start 12/16/16 at 12:32; Stop 12/17/16 at 00:31; Status DC Lidocaine HCl 2 ml PRN 1X PRN ID PRIOR TO IV START; Start 12/16/16 at 12:45; Stop 12/17/16 at 12:44 Hydromorphone HCl (Dilaudid) 0.5 mg PRN Q10MIN PRN IV SEV PAIN, Second choice; Start 12/16/16 at 12:45; Stop 12/17/16 at 12:44 Prochlorperazine Edisylate (Compazine) 5 mg PACU PRN PRN IV NAUSEA, MRX1; Start 12/16/16 at 12:45; Stop 12/17/16 at 12:44 Dextrose/Sodium Chloride 1,000 ml @ 50 mls/hr Q20H IV ; Start 12/16/16 at 13:00 ; Stop 12/16/16 at 13:38; Status DC Active Scripts Active Oxycodone Hcl 5 Mg Tablet 5 Mg PO PRN Q6HRS PRN Reported Albuterol Sulfate Neb Soln (Albuterol Sulfate) 1.25 Mg/3 Ml Vial.neb 1 Vial NEB Q6HRS Ranitidine Hcl 150 Mg Capsule 75 Mg PO DAILY Ondansetron Hcl 8 Mg Tablet 8 Mg PO DAILY Azithromycin Tablet (Azithromycin) 250 Mg Tablet 250 Mg PO DAILY Bupropion Hcl 100 Mg Tablet 100 Mg PO BID Nasal Allergy [place] (Cromolyn Sodium) 13 Ml [place].pump 13 Ml NS DAILY Gabapentin 300 Mg Capsule 300 Mg PO BID Hydroxyzine Hcl 25 Mg Tablet 25 Mg PO DAILY Nystatin 15 Gm Cream..g. 15 Gm TP BID Duloxetine Hcl 60 Mg Capsule.dr 60 Mg PO DAILY Clonidine Hcl 0.1 Mg Tablet 0.1 Mg PO DAILY Lisinopril 20 Mg Tablet 20 Mg PO DAILY Famciclovir 125 Mg Tablet 125 Mg PO DAILY Ropinirole Hcl 0.25 Mg Tablet 0.25 Mg PO DAILY Hydroxychloroquine Sulfate 200 Mg Tablet 200 Mg PO DAILY Lyrica (Pregabalin) 150 Mg Capsule 150 Mg PO DAILY Furosemide 20 Mg Tablet 20 Mg PO DAILY Alprazolam 0.25 Mg Tablet 0.25 Mg PO Oxycodone Hcl 5 Mg Tablet 5 Mg PO PRN Q4HRS PRN Ibuprofen 400 Mg Tablet 400 Mg PO PRN DAILY PRN Multivitamins (Multivitamin) 1 Each Tablet 1 Each PO DAILY Oxycodone-Acetaminophen 10-325 (Oxycodone Hcl/Acetaminophen) 1 Each Tablet 1 Each PO PRN Q4-6HRS PRN Plaquenil (Hydroxychloroquine Sulfate) 200 Mg Tablet 200 Mg PO BID Vitals/I & O Vital Sign - Last 24 Hours 12/16/16 12/16/16 12/16/16 12/16/16 10:30 11:00 11:15 11:30 Pulse 84 84 82 Resp 20 20 20 B/P (MAP) 140/64 (89) 148/67 (94) 144/72 (96) Pulse Ox 100 100 100 100 O2 Delivery Ventilator Ventilator Ventilator Ventilator 12/16/16 12/16/16 12/16/16 12/16/16 12:00 12:00 13:00 13:08 Temp 97.9 97.9 Pulse 84 82 Resp 25 20 B/P (MAP) 149/74 (99) 175/82 (113) Pulse Ox 100 100 100 O2 Delivery Mechanical Ventilator Ventilator Ventilator Ventilator O2 Flow Rate 2.0 12/16/16 12/16/16 12/16/16 12/16/16 14:00 15:00 15:12 16:00 Pulse 88 86 Resp 20 21 B/P (MAP) 173/73 (106) 193/76 (115) Pulse Ox 99 100 100 O2 Delivery Ventilator Ventilator Ventilator Mechanical Ventilator O2 Flow Rate 2.0 12/16/16 12/16/16 12/16/16 12/16/16 16:00 17:00 17:04 18:00 Temp 98.0 98.0 Pulse 94 94 86 Resp 21 20 20 B/P (MAP) 179/67 (104) 159/67 (97) 160/71 (100) Pulse Ox 96 95 100 98 O2 Delivery Ventilator Ventilator Ventilator Ventilator 12/16/16 12/16/16 12/16/16 12/16/16 19:00 19:26 20:00 20:00 Temp 97.7 97.7 Pulse 85 90 Resp 20 20 B/P (MAP) 217/80 (125) 195/86 (122) Pulse Ox 100 100 100 O2 Delivery Ventilator Ventilator Mechanical Ventilator Ventilator 12/16/16 12/16/16 12/16/16 12/16/16 21:00 21:10 21:11 22:00 Pulse 98 86 94 Resp 18 21 B/P (MAP) 182/70 (107) 199/77 166/66 (99) Pulse Ox 100 100 100 O2 Delivery Ventilator Ventilator Ventilator 12/16/16 12/16/16 12/17/16 12/17/16 23:00 23:15 00:00 00:00 Temp 97.9 97.9 Pulse 94 93 Resp 21 16 B/P (MAP) 172/70 (104) 177/71 (106) Pulse Ox 100 100 100 O2 Delivery Ventilator Ventilator Ventilator Mechanical Ventilator 12/17/16 12/17/16 12/17/16 12/17/16 00:55 01:00 02:00 02:02 Pulse 90 100 85 Resp 21 20 B/P (MAP) 166/66 (99) 167/65 (99) 176/69 Pulse Ox 100 100 99 O2 Delivery Ventilator Ventilator Ventilator 12/17/16 12/17/16 12/17/16 12/17/16 02:43 03:00 04:00 04:00 Temp 98.6 98.6 Pulse 90 88 Resp 19 20 B/P (MAP) 172/68 (102) 174/70 (104) Pulse Ox 100 99 99 O2 Delivery Ventilator Ventilator Ventilator Mechanical Ventilator 12/17/16 12/17/16 12/17/16 12/17/16 05:00 05:10 06:00 07:23 Pulse 78 81 Resp 19 20 B/P (MAP) 111/60 (77) 160/82 (108) Pulse Ox 98 96 97 97 O2 Delivery Ventilator Ventilator Ventilator Ventilator 12/17/16 12/17/16 12/17/16 12/17/16 07:30 08:22 08:29 08:30 Temp 98.3 98.3 Pulse 81 89 82 Resp 15 20 B/P (MAP) 186/77 (113) 183/133 183/133 (150) Pulse Ox 97 98 O2 Delivery Ventilator Mechanical Ventilator Ventilator O2 Flow Rate 2.0 12/17/16 12/17/16 09:02 09:20 Pulse 99 Resp 21 B/P (MAP) 153/74 (100) Pulse Ox 98 96 O2 Delivery Ventilator Ventilator Intake and Output 12/16/16 12/16/16 12/17/16 14:59 22:59 06:59 Intake Total 250 ml 704.06 ml 1262 ml Output Total 725 ml 880 ml 400 ml Balance -475 ml -175.94 ml 862 ml Nutrition Consultation Dietary Evaluation: Recommendations by RD: Increase Calorie Intake Comments: Rec. restart the TF's with Diabetisource AC, goal rate 60 ml/hr start at 20 ml/hr, increase by 20 ml/hr q8h to goal flushes 225 cc q6h Expected Outcomes/Goals: tolerate the TF's at goal rate- not met / in progress meet 75% estimated nutrition needs- not met / in progress Malnutrition Findings: Reduced Study Coordinator Strength: N/A Reduced Study Coordinator Strength (Non-Sev: N/A Malnutrition related to morbid: No Weight Status: Obese SHARIF REYNA MD Dec 17, 2016 10:09
[2016-12-17] MEDS ORDERED: POTASSIUM CHLORIDE 20 MEQ/15 ML ORAL LIQUID. PEG ONE (11:00)
[2016-12-17] MEDS: fentaNYL PF VIAL 100 MCG/2 ML VIAL IV PRN (14:44)
[2016-12-17] MEDS ORDERED: LIDOCAINE 1% / SOD BICARB 8.4% 20 ML VIAL. IJ ONE ×2 (14:48→15:15)
--- NOTE | 2016-12-17 14:58 | PDOC ---
PROGRESS NOTES Subjective Subjective c/c - f/u of Acute pancytopenia ROS - on vent Objective Objective Vital Signs Date Time Temp Pulse Resp B/P (MAP) Pulse Ox O2 Delivery O2 Flow Rate FiO2 12/17/16 14:47 97 18 176/68 (104) 95 Ventilator 12/17/16 14:44 2.0 12/17/16 11:32 98.0 98.0 Intake and Output 12/17/16 07:00 Intake Total 2216.06 ml Output Total 2005 ml Balance 211.06 ml IV Total 1181.06 ml Tube Feeding 810 ml Other 225 ml Output Urine Total 2005 ml Physical Exam Lungs: Normal air movement (on vent), Other Psych/Mental Status: Other (on vent-sedated) Assessment Assessment Problems Medical Problems: (1) Respiratory failure Status: Acute ASSESSMENT AND PLAN: The patient is a 55-year-old female with the following medical problems: 1. Acute pancytopenia, likely related to her severe sepsis with methicillin-resistant Staphylococcus aureus bacteremia. Her CBC was normal in late 10/2016. I recommend continuing to treat the underlying infection as you are doing. Transfuse for hemoglobin less than 7, platelets less than 20. She has no evidence of bleeding at this time. 2. Left upper extremity swelling. Ultrasound negative for a DVT 3. 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 She has several risk features. Ultimately, she agreed to have a mastectomy, which was completed in 04/2015. Her tumor was ER/WV negative, HER2 positive. She completed adjuvant Adriamycin/Cytoxan in 06/2015 and Taxol/Herceptin. She completed 1 year of Herceptin in 07/2016. A CT scan in 07/2016 showed indeterminant hilar lymph nodes and pulmonary nodules and bone scan was negative for any metastases. 4. Anemia worse, Hb 7.2, monitor hb 5. Thrombocytopenia better at 61, monitor cbc.. 6. Resp failure - appreciate pulm management. Comment Review of Relevant I have reviewed the following items anselmo (where applicable) has been applied. Labs Laboratory Tests Test 12/15/16 16:58 12/16/16 00:32 12/16/16 02:15 12/16/16 05:01 Glucose (Fingerstick) 138 mg/dL (70-99) 146 mg/dL (70-99) O2 Saturation 98 % (92-99) 99 % (92-99) Arterial Blood pH 7.19 (7.35-7.45) 7.33 (7.35-7.45) Arterial Blood pCO2 at Patient Temp 66 mmHg (35-46) 43 mmHg (35-46) Arterial Blood pO2 at Patient Temp 144 mmHg (75-108) 264 mmHg (75-108) Arterial Blood HCO3 25 mmol/L (21-28) 22 mmol/L (21-28) Arterial Blood Base Excess -5 mmol/L (-3-3) -3 mmol/L (-3-3) FiO2 60 70 Test 12/16/16 06:50 12/16/16 07:10 12/16/16 08:55 12/16/16 09:09 Glucose (Fingerstick) 124 mg/dL (70-99) 93 mg/dL (70-99) White Blood Count 5.4 x10^3/uL (4.0-11.0) Red Blood Count 2.50 x10^6/uL (3.50-5.40) Hemoglobin 7.5 g/dL (12.0-15.5) Hematocrit 22.7 % (36.0-47.0) Mean Corpuscular Volume 91 fL (79-100) Mean Corpuscular Hemoglobin 30 pg (25-35) Mean Corpuscular Hemoglobin Concent 33 g/dL (31-37) Red Cell Distribution Width 15.5 % (11.5-14.5) Platelet Count 50 x10^3/uL (140-400) Neutrophils (%) (Auto) 86 % (31-73) Lymphocytes (%) (Auto) 10 % (24-48) Monocytes (%) (Auto) 4 % (0-9) Eosinophils (%) (Auto) 0 % (0-3) Basophils (%) (Auto) 0 % (0-3) Neutrophils # (Auto) 4.6 x10^3uL (1.8-7.7) Lymphocytes # (Auto) 0.5 x10^3/uL (1.0-4.8) Monocytes # (Auto) 0.2 x10^3/uL (0.0-1.1) Eosinophils # (Auto) 0.0 x10^3/uL (0.0-0.7) Basophils # (Auto) 0.0 x10^3/uL (0.0-0.2) Sodium Level 147 mmol/L (136-145) Potassium Level 3.7 mmol/L (3.5-5.1) Chloride Level 115 mmol/L (98-107) Carbon Dioxide Level 25 mmol/L (21-32) Anion Gap 7 (6-14) Blood Urea Nitrogen 60 mg/dL (7-20) Creatinine 1.0 mg/dL (0.6-1.0) Estimated GFR (Cockcroft-Gault) 69.7 Glucose Level 135 mg/dL (70-99) Calcium Level 9.0 mg/dL (8.5-10.1) Random Vancomycin Level 13.5 mcg/mL O2 Saturation 98 % (92-99) Arterial Blood pH 7.41 (7.35-7.45) Arterial Blood pCO2 at Patient Temp 38 mmHg (35-46) Arterial Blood pO2 at Patient Temp 144 mmHg (75-108) Arterial Blood HCO3 23 mmol/L (21-28) Arterial Blood Base Excess -1 mmol/L (-3-3) FiO2 40 Test 12/16/16 12:37 12/16/16 17:22 12/17/16 00:34 12/17/16 06:11 Glucose (Fingerstick) 101 mg/dL (70-99) 124 mg/dL (70-99) 94 mg/dL (70-99) 114 mg/dL (70-99) Test 12/17/16 08:05 12/17/16 08:20 12/17/16 11:34 White Blood Count 4.2 x10^3/uL (4.0-11.0) Red Blood Count 2.37 x10^6/uL (3.50-5.40) Hemoglobin 7.2 g/dL (12.0-15.5) Hematocrit 21.3 % (36.0-47.0) Mean Corpuscular Volume 90 fL (79-100) Mean Corpuscular Hemoglobin 30 pg (25-35) Mean Corpuscular Hemoglobin Concent 34 g/dL (31-37) Red Cell Distribution Width 15.6 % (11.5-14.5) Platelet Count 61 x10^3/uL (140-400) Neutrophils (%) (Auto) 85 % (31-73) Lymphocytes (%) (Auto) 10 % (24-48) Monocytes (%) (Auto) 4 % (0-9) Eosinophils (%) (Auto) 0 % (0-3) Basophils (%) (Auto) 0 % (0-3) Neutrophils # (Auto) 3.6 x10^3uL (1.8-7.7) Lymphocytes # (Auto) 0.4 x10^3/uL (1.0-4.8) Monocytes # (Auto) 0.2 x10^3/uL (0.0-1.1) Eosinophils # (Auto) 0.0 x10^3/uL (0.0-0.7) Basophils # (Auto) 0.0 x10^3/uL (0.0-0.2) Prothrombin Time 14.9 SEC (11.7-14.0) Prothromb Time International Ratio 1.2 (0.8-1.1) Sodium Level 149 mmol/L (136-145) Potassium Level 3.4 mmol/L (3.5-5.1) Chloride Level 114 mmol/L (98-107) Carbon Dioxide Level 26 mmol/L (21-32) Anion Gap 9 (6-14) Blood Urea Nitrogen 54 mg/dL (7-20) Creatinine 1.1 mg/dL (0.6-1.0) Estimated GFR (Cockcroft-Gault) 62.4 Glucose Level 108 mg/dL (70-99) Calcium Level 8.5 mg/dL (8.5-10.1) O2 Saturation 97 % (92-99) Arterial Blood pH 7.51 (7.35-7.45) Arterial Blood pCO2 at Patient Temp 28 mmHg (35-46) Arterial Blood pO2 at Patient Temp 100 mmHg (75-108) Arterial Blood HCO3 22 mmol/L (21-28) Arterial Blood Base Excess -1 mmol/L (-3-3) FiO2 30 Glucose (Fingerstick) 126 mg/dL (70-99) Laboratory Tests Test 12/16/16 17:22 12/17/16 00:34 12/17/16 06:11 12/17/16 08:05 Glucose (Fingerstick) 124 mg/dL (70-99) 94 mg/dL (70-99) 114 mg/dL (70-99) White Blood Count 4.2 x10^3/uL (4.0-11.0) Red Blood Count 2.37 x10^6/uL (3.50-5.40) Hemoglobin 7.2 g/dL (12.0-15.5) Hematocrit 21.3 % (36.0-47.0) Mean Corpuscular Volume 90 fL (79-100) Mean Corpuscular Hemoglobin 30 pg (25-35) Mean Corpuscular Hemoglobin Concent 34 g/dL (31-37) Red Cell Distribution Width 15.6 % (11.5-14.5) Platelet Count 61 x10^3/uL (140-400) Neutrophils (%) (Auto) 85 % (31-73) Lymphocytes (%) (Auto) 10 % (24-48) Monocytes (%) (Auto) 4 % (0-9) Eosinophils (%) (Auto) 0 % (0-3) Basophils (%) (Auto) 0 % (0-3) Neutrophils # (Auto) 3.6 x10^3uL (1.8-7.7) Lymphocytes # (Auto) 0.4 x10^3/uL (1.0-4.8) Monocytes # (Auto) 0.2 x10^3/uL (0.0-1.1) Eosinophils # (Auto) 0.0 x10^3/uL (0.0-0.7) Basophils # (Auto) 0.0 x10^3/uL (0.0-0.2) Prothrombin Time 14.9 SEC (11.7-14.0) Prothromb Time International Ratio 1.2 (0.8-1.1) Sodium Level 149 mmol/L (136-145) Potassium Level 3.4 mmol/L (3.5-5.1) Chloride Level 114 mmol/L (98-107) Carbon Dioxide Level 26 mmol/L (21-32) Anion Gap 9 (6-14) Blood Urea Nitrogen 54 mg/dL (7-20) Creatinine 1.1 mg/dL (0.6-1.0) Estimated GFR (Cockcroft-Gault) 62.4 Glucose Level 108 mg/dL (70-99) Calcium Level 8.5 mg/dL (8.5-10.1) Test 12/17/16 08:20 6/27/17 11:34 O2 Saturation 97 % (92-99) Arterial Blood pH 7.51 (7.35-7.45) Arterial Blood pCO2 at Patient Temp 28 mmHg (35-46) Arterial Blood pO2 at Patient Temp 100 mmHg (75-108) Arterial Blood HCO3 22 mmol/L (21-28) Arterial Blood Base Excess -1 mmol/L (-3-3) FiO2 30 Glucose (Fingerstick) 126 mg/dL (70-99) Microbiology 12/14/16 Blood Culture - Preliminary, Resulted NO GROWTH AFTER 3 DAYS 12/09/16 Stool Culture - Final, Complete 12/09/16 Stool Culture Result 1 (LUCINA) - Final, Complete 12/09/16 Campylobacter Antigen Assay - Final, Complete 12/09/16 Campylobactor Result 1 - Final, Complete 12/09/16 Shiga Toxin Test - Final, Complete 12/17/16 Gram Stain - Final, Resulted 12/06/16 Urine Culture - Final, Complete 12/06/16 Urine Culture Result 1 (LUCINA) - Final, Complete Medications Current Medications Sodium Chloride 1,000 ml @ 1,000 mls/hr 1X ONCE IV Last administered on 16:18; Start 12/06/16 at 16:15; Stop 12/06/16 at 17:14; Status DC Vancomycin HCl (Vanco Per Pharmacy) 1 each PRN DAILY PRN MC SEE COMMENTS Last administered on 12/15/16 15:18; Start 12/06/16 at 17:00; Stop 12/16/16 at 09:58 ; Status DC Levofloxacin/ Dextrose 150 ml @ 100 mls/hr 1X ONCE IV Last administered on 20:04; Start 12/06/16 at 17:00; Stop 12/06/16 at 18:29; Status DC Vancomycin HCl 2 gm/Sodium Chloride 500 ml @ 250 mls/hr 1X ONCE IV Last administered on 12/06/16 17:11; Start 12/06/16 at 17:00; Stop 12/06/16 at 18:59 ; Status DC Sodium Chloride 1,000 ml @ 1,000 mls/hr 1X ONCE IV Last administered on 17:09; Start 12/06/16 at 17:00; Stop 12/06/16 at 17:59; Status DC Meropenem 500 mg/ Sodium Chloride 50 ml @ 100 mls/hr Q8HRS IV Last administered on 12/10/16 07:30; Start 12/06/16 at 18:00; Stop 12/10/16 at 08:13 ; Status DC Dopamine HCl/ Dextrose 250 ml @ 16.414 mls/ hr 1X ONCE IV Last administered on 12/06/16 17:41; Start 12/06/16 at 17:15; Stop 12/07/16 at 08:28; Status DC Etomidate (Amidate) 20 mg 1X ONCE IV Last administered on 12/06/16 17:19; Start 12/06/16 at 17:15; Stop 12/06/16 at 17:17; Status DC Succinylcholine Chloride (Anectine) 100 mg 1X ONCE IV Last administered on 17:20; Start 12/06/16 at 17:15; Stop 12/06/16 at 17:17; Status DC Vancomycin HCl 1.25 gm/Sodium Chloride 250 ml @ 167 mls/hr Q24H IV Last administered on 12/07/16 18:39; Start 12/07/16 at 17:00; Stop 12/07/16 at 23:00 ; Status DC Vancomycin HCl 1 each 1X ONCE MC ; Start 12/07/16 at 16:30; Stop 12/07/16 at 16 :31; Status Cancel Midazolam HCl 100 ml @ As Directed STK-MED ONCE IV ; Start 12/06/16 at 17:36; Stop 12/06/16 at 17:37; Status DC Midazolam HCl (Versed) 5 mg STK-MED ONCE .ROUTE ; Start 12/06/16 at 17:37; Stop 12/06/16 at 17:38; Status DC Midazolam HCl (Versed) 5 mg PRN Q10MIN PRN IV SEDATION; Start 12/06/16 at 17:45 Hydrocortisone Sodium Succinate (Solu-CORTEF) 100 mg Q8HRS IV Last administered on 12/09/16 13:55; Start 12/06/16 at 18:30; Stop 12/09/16 at 16:21 ; Status DC Norepinephrine Bitartrate 16 mg/ Sodium Chloride 266 ml @ 0 mls/hr CONT PRN IV SEE I/O RECORD; Start 12/06/16 at 19:00; Status UNV Pantoprazole Sodium (Protonix Vial) 40 mg DAILYAC IVP Last administered on 12/15 08:40; Start 12/06/16 at 19:30; Stop 12/15/16 at 10:35; Status DC Acetaminophen (Tylenol) 325 mg PRN Q6HRS PRN PO MILD PAIN / TEMP; Start at 19:00 Hydralazine HCl (Apresoline) 10 mg PRN Q4HRS PRN IVP ELEVATED BP, SEE COMMENTS Last administered on 12/17/16 12:26; Start 12/06/16 at 19:00 Ondansetron HCl (Zofran) 4 mg PRN Q8HRS PRN IV NAUSEA/VOMITING; Start 12/06/16 at 19:00; Stop 12/12/16 at 08:31; Status DC Albuterol Sulfate (Ventolin Neb Soln) 2.5 mg PRN Q4HRS PRN NEB SHORTNESS OF BREATH Last administered on 12/16/16 00:43; Start 12/06/16 at 19:00 Norepinephrine Bitartrate 250 ml @ 1.875 mls/ hr CONT PRN IV SEE I/O RECORD Last administered on 12/06/16 19:55; Start 12/06/16 at 19:00; Stop 12/15/16 at 10:33; Status DC Sodium Chloride 1,000 ml @ 1,000 mls/hr 1X ONCE IV Last administered on 19:56; Start 12/06/16 at 19:15; Stop 12/06/16 at 20:14; Status DC Sodium Chloride 1,000 ml @ 75 mls/hr [id number] IV Last administered on 21:55; Start 12/06/16 at 19:15; Stop 12/09/16 at 18:44; Status DC Pneumococcal Polyvalent Vaccine (Do NOT chart on this placeholder) 1 each PRN DAILY PRN MC PT UNABLE TO RESPOND; Start 12/07/16 at 09:30; Status Cancel Pneumococcal Polyvalent Vaccine (Pneumovax 23) 0.5 ml ONCE ONCE VAX IM ; Start 12/08/16 at 09:00; Stop 12/08/16 at 09:01; Status DC Albuterol/ Ipratropium (Duoneb) 3 ml RTQID NEB Last administered on 12/17/16 11:41; Start 12/07/16 at 12:00 Midazolam HCl 100 ml @ 0 mls/hr CONT PRN IV SEE I/O RECORD Last administered on 12/07/16 10:29; Start 12/07/16 at 10:15; Stop 12/13/16 at 20:41; Status DC Fentanyl Citrate (Fentanyl 2ml Vial) 25 mcg PRN Q1HR PRN IV PAIN Last administered on 12/17/16 14:44; Start 12/07/16 at 10:45 Pantoprazole Sodium (Protonix Vial) 40 mg DAILYAC IVP ; Start 12/07/16 at 17:00 ; Status Cancel Vancomycin HCl 1.25 gm/Sodium Chloride 250 ml @ 167 mls/hr Q12H IV Last administered on 12/13/16 18:25; Start 12/08/16 at 06:00; Stop 12/13/16 at 18:54 ; Status DC Vancomycin HCl 1 each 1X ONCE MC ; Start 12/08/16 at 17:30; Stop 12/08/16 at 17 :31; Status DC Vancomycin HCl 1 gm/Sodium Chloride 250 ml @ 250 mls/hr Q12H IV ; Start at 18:00; Status Cancel Chlorhexidine Gluconate (Peridex) 15 ml BID SWSP ; Start 12/09/16 at 21:00; Stop 12/10/16 at 07:23; Status DC Hydrocortisone Sodium Succinate (Solu-CORTEF) 100 mg Q12HR IV Last administered on 12/14/16 08:53; Start 12/09/16 at 21:00; Stop 12/14/16 at 16:52 ; Status DC Amino Acids/ Glycerin/ Electrolytes 1,000 ml @ 40 mls/hr Q24H IV Last administered on 12/09/16 17:56; Start 12/09/16 at 17:00; Stop 12/10/16 at 14:16 ; Status DC Alprazolam (Xanax) 0.25 mg DAILY PO Last administered on 12/17/16 08:03; Start 12/10/16 at 09:00 Bupropion HCl (Wellbutrin) 100 mg BID PO Last administered on 12/17/16 08:03; Start 12/09/16 at 21:00 Gabapentin (Neurontin) 300 mg BID PO ; Start 12/09/16 at 21:00; Status Cancel Ropinirole HCl (Requip) 0.25 mg QHS PO Last administered on 12/16/16 21:12; Start 12/09/16 at 21:00 Pregabalin (Lyrica) 150 mg DAILY PO Last administered on 12/17/16 08:03; Start 12/10/16 at 09:00 Epinephrine (S2 Racepinephrine) 0.5 ml 1X ONCE NEB Last administered on 07:45; Start 12/10/16 at 07:45; Stop 12/10/16 at 07:46; Status DC Lorazepam (Ativan) 2 mg 1X ONCE IV Last administered on 12/10/16 08:33; Start 12/10/16 at 08:00; Stop 12/10/16 at 08:01; Status DC Succinylcholine Chloride (Anectine) 200 mg STK-MED ONCE .ROUTE ; Start 12/10/16 at 10:28; Stop 12/10/16 at 10:29; Status DC Propofol 100 ml @ As Directed STK-MED ONCE IV ; Start 12/10/16 at 10:28; Stop 12/10/16 at 10:29; Status DC Calcium Gluconate (Calcium Gluconate) 1,000 mg 1X ONCE IVP Last administered on 12/10/16 11:41; Start 12/10/16 at 11:30; Stop 12/10/16 at 11:31; Status DC Succinylcholine Chloride (Anectine) 200 mg 1X ONCE IV Last administered on 11:41; Start 12/10/16 at 11:30; Stop 12/10/16 at 11:31; Status DC Propofol 100 ml @ 0 mls/hr CONT PRN IV SEE I/O RECORD Last administered on 12/13 00:57; Start 12/10/16 at 11:30; Stop 12/13/16 at 20:41; Status DC Insulin Aspart (NovoLOG) 0-5 UNITS TIDWMEALS SQ ; Start 12/11/16 at 08:00; Stop 12/11/16 at 08:00; Status DC Dextrose (Dextrose 50%-Water Syringe) 12.5 gm PRN Q15MIN PRN IV SEE COMMENTS; Start 12/10/16 at 20:30 Insulin Aspart (NovoLOG) 0-5 UNITS Q6HRS SQ Last administered on 12/13/16 06: 25; Start 12/11/16 at 00:00 Chlorhexidine Gluconate (Peridex) 15 ml BID MM Last administered on 12/13/16 09:46; Start 12/11/16 at 21:00; Stop 12/13/16 at 20:41; Status DC Fentanyl Citrate (Fentanyl 2ml Vial) 25 mcg PRN Q5MIN PRN IV MILD PAIN; Start 12/12/16 at 07:00; Stop 12/13/16 at 06:59; Status DC Fentanyl Citrate (Fentanyl 2ml Vial) 50 mcg PRN Q5MIN PRN IV MODERATE PAIN; Start 12/12/16 at 07:00; Stop 12/13/16 at 06:59; Status DC Morphine Sulfate 1 mg PRN Q10MIN PRN IV SEVERE PAIN; Start 12/12/16 at 07:00; Stop 12/13/16 at 06:59; Status DC Ringer's Solution 1,000 ml @ 30 mls/hr Q24H IV ; Start 12/12/16 at 07:00; Stop 12/12/16 at 18:59; Status DC Lidocaine HCl 2 ml PRN 1X PRN ID PRIOR TO IV START; Start 12/12/16 at 07:00; Stop 12/13/16 at 06:59; Status DC Hydromorphone HCl (Dilaudid) 0.5 mg PRN Q10MIN PRN IV SEV PAIN, Second choice; Start 12/12/16 at 07:00; Stop 12/13/16 at 06:59; Status DC Prochlorperazine Edisylate (Compazine) 5 mg PACU PRN PRN IV NAUSEA, MRX1; Start 12/12/16 at 07:00; Stop 12/13/16 at 06:59; Status DC Lidocaine HCl (Lidocaine Pf 2% Vial) 5 ml STK-MED ONCE .ROUTE ; Start 12/12/16 at 08:15; Stop 12/12/16 at 08:16; Status DC Propofol 0 ml @ As Directed STK-MED ONCE IV ; Start 12/12/16 at 08:15; Stop at 08:16; Status DC Ondansetron HCl (Zofran) 4 mg PRN Q6HRS PRN IV NAUSEA/VOMITING Last administered on 12/14/16 01:41; Start 12/12/16 at 19:00 Acetaminophen (Tylenol) 650 mg PRN Q6HRS PRN PEG MILD PAIN / TEMP Last administered on 12/15/16 17:25; Start 12/12/16 at 08:30 Vancomycin HCl 1 each 1X ONCE MC Last administered on 12/13/16 10:00; Start 12/13/16 at 10:00; Stop 12/13/16 at 10:01; Status DC Furosemide (Lasix) 40 mg 1X ONCE IVP Last administered on 12/13/16 11:31; Start 12/13/16 at 11:15; Stop 12/13/16 at 11:16; Status DC Amino Acids/ Glycerin/ Electrolytes 1,000 ml @ 75 mls/hr [id number] IV Last administered on 12/15/16 04:25; Start 12/13/16 at 21:00; Stop 12/15/16 at 10:33 ; Status DC Vancomycin HCl 1 each 1X ONCE MC Last administered on 12/14/16 09:00; Start 12/14/16 at 09:00; Stop 12/14/16 at 09:01; Status DC Vancomycin HCl 1 each 1X ONCE MC ; Start 12/15/16 at 06:00; Stop 12/15/16 at 06 :01; Status Cancel Vancomycin HCl 1 each 1X ONCE MC Last administered on 12/15/16 06:00; Start 12/15/16 at 06:00; Stop 12/15/16 at 06:01; Status DC Alteplase, Recombinant (Cathflo) 2 mg 1X ONCE INT CAT Last administered on 14:58; Start 12/14/16 at 14:30; Stop 12/14/16 at 14:34; Status DC Hydrocortisone Sodium Succinate (Solu-CORTEF) 100 mg DAILY IV Last administered on 12/17/16 08:03; Start 12/15/16 at 09:00 Haloperidol Lactate (Haldol) 2.5 mg PRN Q4HRS PRN IVP AGITATION Last administered on 12/15/16 20:35; Start 12/15/16 at 06:45 Lansoprazole (Prevacid) 30 mg DAILYAC FT ; Start 12/16/16 at 07:30; Stop at 10:00; Status DC Vancomycin HCl 1 gm/Sodium Chloride 250 ml @ 250 mls/hr Q48H IV ; Start at 21:00; Status Cancel Morphine Sulfate 2 mg PRN Q2HR PRN IV SEVERE PAIN Last administered on 01:19; Start 12/15/16 at 21:15 Zolpidem Tartrate (Ambien) 5 mg PRN QHS PRN PO INSOMNIA Last administered on 00:17; Start 12/16/16 at 00:00 Propofol 100 ml @ As Directed STK-MED ONCE IV ; Start 12/16/16 at 02:34; Stop 12/16/16 at 02:35; Status DC Succinylcholine Chloride (Anectine) 200 mg STK-MED ONCE .ROUTE ; Start 12/16/16 at 02:57; Stop 12/16/16 at 02:58; Status DC Succinylcholine Chloride (Anectine) 200 mg STK-MED ONCE .ROUTE ; Start 12/16/16 at 02:57; Stop 12/16/16 at 02:58; Status DC Etomidate (Amidate) 20 mg STK-MED ONCE IV ; Start 12/16/16 at 02:58; Stop at 02:59; Status DC Propofol 100 ml @ 0 mls/hr CONT PRN IV SEE I/O RECORD; Start 12/16/16 at 04:15 ; Stop 12/16/16 at 08:04; Status DC Chlorhexidine Gluconate (Peridex) 15 ml BID MM Last administered on 12/17/16 08:17; Start 12/16/16 at 09:00 Propofol (Diprivan) 1,000 mg STK-MED ONCE IV ; Start 12/16/16 at 03:00; Stop at 07:11; Status DC Furosemide (Lasix) 40 mg DAILY IVP Last administered on 12/17/16 08:02; Start 12/16/16 at 09:00 Ceftaroline Fosamil 600 mg/ Sodium Chloride 250 ml @ 250 mls/hr Q8HRS IV Last administered on 12/17/16 14:06; Start 12/16/16 at 10:00 Famotidine (Pepcid) 20 mg BID IVP Last administered on 12/17/16 08:03; Start 12/16/16 at 10:30 Propofol 100 ml @ 0 mls/hr CONT PRN IV PER PROTOCOL Last administered on 14:45; Start 12/16/16 at 06:45 Fentanyl Citrate (Fentanyl 2ml Vial) 25 mcg PRN Q5MIN PRN IV MILD PAIN; Start 12/16/16 at 12:45; Stop 12/17/16 at 12:44; Status DC Fentanyl Citrate (Fentanyl 2ml Vial) 50 mcg PRN Q5MIN PRN IV MODERATE PAIN; Start 12/16/16 at 12:45; Stop 12/17/16 at 12:44; Status DC Morphine Sulfate 1 mg PRN Q10MIN PRN IV SEVERE PAIN; Start 12/16/16 at 12:45; Stop 12/17/16 at 12:44; Status DC Ringer's Solution 1,000 ml @ 30 mls/hr Q24H IV ; Start 12/16/16 at 12:32; Stop 12/17/16 at 00:31; Status DC Lidocaine HCl 2 ml PRN 1X PRN ID PRIOR TO IV START; Start 12/16/16 at 12:45; Stop 12/17/16 at 12:44; Status DC Hydromorphone HCl (Dilaudid) 0.5 mg PRN Q10MIN PRN IV SEV PAIN, Second choice; Start 12/16/16 at 12:45; Stop 12/17/16 at 12:44; Status DC Prochlorperazine Edisylate (Compazine) 5 mg PACU PRN PRN IV NAUSEA, MRX1; Start 12/16/16 at 12:45; Stop 12/17/16 at 12:44; Status DC Dextrose/Sodium Chloride 1,000 ml @ 50 mls/hr Q20H IV ; Start 12/16/16 at 13:00 ; Stop 12/16/16 at 13:38; Status DC Potassium Chloride (KCl Oral Soln) 20 meq 1X ONCE PEG Last administered on 11:28; Start 12/17/16 at 11:00; Stop 12/17/16 at 11:01; Status DC Lidocaine/Sodium Bicarbonate (Buffered Lidocaine 1%) 20 ml STK-MED ONCE IJ ; Start 12/17/16 at 14:48; Stop 12/17/16 at 14:49; Status DC Heparin Sodium/ Sodium Chloride 500 ml @ As Directed STK-MED ONCE .ROUTE ; Start 12/17/16 at 14:48; Stop 12/17/16 at 14:49; Status DC Active Scripts Active Oxycodone Hcl 5 Mg Tablet 5 Mg PO PRN Q6HRS PRN Reported Albuterol Sulfate Neb Soln (Albuterol Sulfate) 1.25 Mg/3 Ml Vial.neb 1 Vial NEB Q6HRS Ranitidine Hcl 150 Mg Capsule 75 Mg PO DAILY Ondansetron Hcl 8 Mg Tablet 8 Mg PO DAILY Azithromycin Tablet (Azithromycin) 250 Mg Tablet 250 Mg PO DAILY Bupropion Hcl 100 Mg Tablet 100 Mg PO BID Nasal Allergy Doran (Cromolyn Sodium) 13 Ml Doran.pump 13 Ml NS DAILY Gabapentin 300 Mg Capsule 300 Mg PO BID Hydroxyzine Hcl 25 Mg Tablet 25 Mg PO DAILY Nystatin 15 Gm Cream..g. 15 Gm TP BID Duloxetine Hcl 60 Mg Capsule.dr 60 Mg PO DAILY Clonidine Hcl 0.1 Mg Tablet 0.1 Mg PO DAILY Lisinopril 20 Mg Tablet 20 Mg PO DAILY Famciclovir 125 Mg Tablet 125 Mg PO DAILY Ropinirole Hcl 0.25 Mg Tablet 0.25 Mg PO DAILY Hydroxychloroquine Sulfate 200 Mg Tablet 200 Mg PO DAILY Lyrica (Pregabalin) 150 Mg Capsule 150 Mg PO DAILY Furosemide 20 Mg Tablet 20 Mg PO DAILY Alprazolam 0.25 Mg Tablet 0.25 Mg PO Oxycodone Hcl 5 Mg Tablet 5 Mg PO PRN Q4HRS PRN Ibuprofen 400 Mg Tablet 400 Mg PO PRN DAILY PRN Multivitamins (Multivitamin) 1 Each Tablet 1 Each PO DAILY Oxycodone-Acetaminophen 10-325 (Oxycodone Hcl/Acetaminophen) 1 Each Tablet 1 Each PO PRN Q4-6HRS PRN Plaquenil (Hydroxychloroquine Sulfate) 200 Mg Tablet 200 Mg PO BID Vitals/I & O Vital Sign - Last 24 Hours 12/16/16 12/16/16 12/16/16 12/16/16 15:00 15:12 16:00 16:00 Temp 98.0 98.0 Pulse 86 94 Resp 21 21 B/P (MAP) 193/76 (115) 179/67 (104) Pulse Ox 100 100 96 O2 Delivery Ventilator Ventilator Mechanical Ventilator Ventilator O2 Flow Rate 2.0 12/16/16 12/16/16 12/16/16 12/16/16 17:00 17:04 18:00 19:00 Pulse 94 86 85 Resp 20 20 20 B/P (MAP) 159/67 (97) 160/71 (100) 217/80 (125) Pulse Ox 95 100 98 100 O2 Delivery Ventilator Ventilator Ventilator Ventilator 12/16/16 12/16/16 12/16/16 12/16/16 19:26 20:00 20:00 21:00 Temp 97.7 97.7 Pulse 90 98 Resp 20 18 B/P (MAP) 195/86 (122) 182/70 (107) Pulse Ox 100 100 100 O2 Delivery Ventilator Mechanical Ventilator Ventilator Ventilator 12/16/16 12/16/16 12/16/16 12/16/16 21:10 21:11 22:00 23:00 Pulse 86 94 94 Resp 21 21 B/P (MAP) 199/77 166/66 (99) 172/70 (104) Pulse Ox 100 100 100 O2 Delivery Ventilator Ventilator Ventilator 12/16/16 12/17/16 12/17/16 12/17/16 23:15 00:00 00:00 00:55 Temp 97.9 97.9 Pulse 93 Resp 16 B/P (MAP) 177/71 (106) Pulse Ox 100 100 100 O2 Delivery Ventilator Ventilator Mechanical Ventilator Ventilator 12/17/16 12/17/16 12/17/16 12/17/16 01:00 02:00 02:02 02:43 Pulse 90 100 85 Resp 21 20 B/P (MAP) 166/66 (99) 167/65 (99) 176/69 Pulse Ox 100 99 100 O2 Delivery Ventilator Ventilator Ventilator 12/17/16 12/17/16 12/17/16 12/17/16 03:00 04:00 04:00 05:00 Temp 98.6 98.6 Pulse 90 88 78 Resp 19 20 19 B/P (MAP) 172/68 (102) 174/70 (104) 111/60 (77) Pulse Ox 99 99 98 O2 Delivery Ventilator Ventilator Mechanical Ventilator Ventilator 12/17/16 12/17/16 12/17/16 12/17/16 05:10 06:00 07:23 07:30 Temp 98.3 98.3 Pulse 81 81 Resp 20 15 B/P (MAP) 160/82 (108) 186/77 (113) Pulse Ox 96 97 97 97 O2 Delivery Ventilator Ventilator Ventilator Ventilator 12/17/16 12/17/16 12/17/16 12/17/16 08:22 08:29 08:30 09:02 Pulse 89 82 99 Resp 20 21 B/P (MAP) 183/133 183/133 (150) 153/74 (100) Pulse Ox 98 98 O2 Delivery Mechanical Ventilator Ventilator Ventilator O2 Flow Rate 2.0 12/17/16 12/17/16 12/17/16 12/17/16 09:20 10:22 11:06 11:18 Pulse 85 90 Resp 17 16 B/P (MAP) 186/80 (115) 198/75 (116) Pulse Ox 96 96 95 95 O2 Delivery Ventilator Ventilator Ventilator Ventilator 12/17/16 12/17/16 12/17/16 12/17/16 11:32 11:50 12:26 13:00 Temp 98.0 98.0 Pulse 106 105 96 Resp 23 15 B/P (MAP) 191/75 (113) 191/75 158/61 (93) Pulse Ox 94 94 O2 Delivery Ventilator Mechanical Ventilator Ventilator O2 Flow Rate 2.0 12/17/16 12/17/16 12/17/16 14:02 14:44 14:47 Pulse 96 97 Resp 15 18 B/P (MAP) 165/63 (97) 176/68 (104) Pulse Ox 95 95 95 O2 Delivery Ventilator Ventilator O2 Flow Rate 2.0 Intake and Output 12/16/16 12/16/16 12/17/16 15:00 23:00 07:00 Intake Total 250 ml 954.06 ml 1012 ml Output Total 725 ml 930 ml 350 ml Balance -475 ml 24.06 ml 662 ml Nutrition Consultation Dietary Evaluation: Recommendations by RD: Increase Calorie Intake, PPN/TPN Comments: Rec. resume the TF's when medically appropriate TF goal rate adjusted as pt is receiving 505 calories/day from propofol Rec. Diabetisource AC, goal rate 45 ml/hr start at 25 ml/hr, increase by 25 ml/hr q8h to goal flushes 175 cc q4h add 1 packet of prostat/morning Expected Outcomes/Goals: tolerate the TF's at goal rate- in progress meet 75% estimated nutrition needs- in progress Malnutrition Findings: Reduced Customs Broker Strength: N/A Reduced Customs Broker Strength (Non-Sev: N/A Malnutrition related to morbid: No Weight Status: Obese ELLE CLARK MD Dec 17, 2016 14:58
[2016-12-17] MEDS ORDERED: GELATIN SPONGE SIZE 12-7MM SPONGE. ONE (15:01)
[2016-12-17] MEDS ORDERED: LIDOCAINE 1%/EPI 1:100,000 20 ML VIAL. INJ ONE (15:15)
--- NOTE | 2016-12-17 16:18 | PDOC ---
Exam Certified Ophthalmic Medical Technician Certified Ophthalmic Medical Technician Mahi Supplier Relationship Director Supplier Relationship Director V Rebecca Pre-Procedure Diagnosis Pre-Procedure Diagnosis 55 YO female ICU patient with acute respiratory failure, Sepsis, MRSA bacteremia , and ? infected left chest Power Port. Port removal required, with placement of CVC to maintain CV access. Post-Procedure Diagnosis Post-Procedure Diagnosis Same Procedure Performed Procedure Performed Bedside ICU Sono guided CVC insertion. (Left chest Power Port removed by Dr Vivar) Type of Anesthesia Type of Anesthesia Local Estimated Blood Loss EBL: Minimal Specimens Specimans (Left chest Power Port removed by Dr Vivar---tip to micro for C&S) Drain/Tubes Drains/Tubes Rt IJ 7F 3L 20cm Power Injectable CVC Condition of Patient Condition of Patient No change. No apparent complication. Disposition Disposition STAT pCXR requested for CVC position. Full report to follow. CHITO SANTOS MD Dec 17, 2016 16:18
--- NOTE | 2016-12-17 16:36 | RAD ---
Portable AP upright chest x-ray performed at 1622 History: Central line placement Comparison: December 16, 2016. Findings: A right subclavian central line has been placed and the tip is seen within the right atrium. ET tube and Dobbhoff tube remain in place. ET tube tip is located 2.5 cm above the level of the nunu. Dobbhoff tube has been advanced and the tip is now seen within the proximal body of the stomach. Bilateral pulmonary edema and vascular congestion has improved but is still present. Bilateral pleural effusions have improved as well but are still present. No pneumothorax is seen. Heart size and mediastinum are stable. IMPRESSION: Placement of a right subclavian central line and the tip is located within the right atrium. No pneumothorax is seen. Improving CHF or fluid overload.
--- NOTE | 2016-12-17 16:46 | PDOC2 ---
PALLIATIVE CARE Palliative Care Note Palliative Care Patient remains on Vent. Port removed. Spoke with daughter Araceli. Answered question. Undecided about trach and PEG. Plan meeting tomorrow at 11am JOSE ELIAS SMITH Dec 17, 2016 16:46
[2016-12-17] MEDS: rOPINIRole 0.25 MG TABLET. PO SCH (21:23)
--- NOTE | 2016-12-17 23:47 | RAD ---
History: Orogastric tube placement. Comparison: December 16, 2016. Findings: AP view of the abdomen. Left side of the abdomen has been excluded from the examination. Esophagogastric tube is present with tip projecting at the body of the stomach. Cholecystectomy clips are present. There is a dilated loop of small bowel measuring up to 3.5 cm in diameter. Impression: Esophagogastric tube tip projects in the body of the stomach. Electronically signed by: Steven Baptiste MD (12/17/2016 11:44 PM)
[2016-12-18] VITALS (24 sets, daily range): BP systolic 100–119; BP diastolic 46–65
[2016-12-18] MEDS: PROPOFOL 100 ML IV PRN ×5 (01:15→18:52)
[2016-12-18] MEDS: INSULIN ASPART 300 UNITS/3 ML INSULN.PEN SQ SCH ×4 (05:30→18:00)
[2016-12-18] MEDS: CEFTAROLINE FOSAMIL 600 MG in IV NORMAL SALINE 250ML 250 ML IV SCH ×3 (05:30→21:56)
--- NOTE | 2016-12-18 06:33 | RAD ---
Bedside ultrasound guided Central Venous Catheter placement Indication: 55-year-old female with respiratory failure on vent, sepsis, MRSA bacteremia, and possibly infected left subclavian tunneled power port. Bedside central venous catheter insertion has been requested. Power port removal was also requested----the procedure was performed bedside by general surgery. Anesthesia: Local only Sterility: All elements of maximal sterile barrier technique, hand hygiene, skin preparation, and, if ultrasound was used, sterile ultrasound technique were followed. Procedure: Informed consent was obtained from the patient's daughter. This procedure was performed bedside in ICU. Preliminary ultrasound examination of right neck revealed wide patency of right internal jugular vein, which was documented with a single hard copy ultrasound image. Right neck was then prepped and draped in the usual sterile fashion, utilizing all elements of maximal sterile barrier technique, as described above. Using aseptic technique, local anesthesia, direct ultrasound guidance, and the micropuncture technique, successful entry was made into right internal jugular vein. The right IJ venostomy tract was then dilated and a 7 Algerian triple lumen 20 cm power injectable CVC was easily advanced centrally over an angiographic guidewire. The CVC was then demonstrated to flush and aspirate normally, and was secured at the skin exit site using suture and sterile dressing. Patient tolerated the procedure well, without apparent complication. A STAT portable CXR was requested for CVC position. Impression: Successful, uneventful sono guided placement of right IJ power injectable 7 Algerian triple lumen 20 cm CVC, bedside in ICU, as described.
[2016-12-18] MEDS: IPRATRPIUM/ALBUTEROL 0.5/2.5MG 3 ML NEBU. NEB SCH ×3 (07:29→19:49)
[2016-12-18 07:43] LABS: HCO3 ABG 24 mmol/L (21-28); PCO2 ABG 36 mmHg (35-46); PH ABG 7.43 (7.35-7.45); PO2 ABG 96 mmHg (75-108); SAT O2 ABG 97 % (92-99)
[2016-12-18 08:07] LABS: FIO2 ABG 30
--- NOTE | 2016-12-18 08:24 | PDOC ---
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 SKIN: + purpura BLE. fading. Less ant chest erythema - improving Removed Port-a-cath site -clean Labs Lab Laboratory Tests Test 12/17/16 08:20 12/17/16 11:34 12/17/16 18:28 12/17/16 23:52 O2 Saturation 97 % (92-99) Arterial Blood pH 7.51 (7.35-7.45) Arterial Blood pCO2 at Patient Temp 28 mmHg (35-46) Arterial Blood pO2 at Patient Temp 100 mmHg (75-108) Arterial Blood HCO3 22 mmol/L (21-28) Arterial Blood Base Excess -1 mmol/L (-3-3) FiO2 30 Glucose (Fingerstick) 126 mg/dL (70-99) 135 mg/dL (70-99) 97 mg/dL (70-99) Test 12/18/16 05:28 12/18/16 08:00 Glucose (Fingerstick) 116 mg/dL (70-99) O2 Saturation 97 % (92-99) Arterial Blood pH 7.43 (7.35-7.45) Arterial Blood pCO2 at Patient Temp 36 mmHg (35-46) Arterial Blood pO2 at Patient Temp 96 mmHg (75-108) Arterial Blood HCO3 24 mmol/L (21-28) Arterial Blood Base Excess -1 mmol/L (-3-3) FiO2 30 Objective Assessment Acute resp failure - intubated. Per nursing a lot of plugs suctioned s/p bronch 12/16 - no plugs seen Infected port a cath with veg on port seen on CHARLI 12/16 s/p Removal 12/17 Sepsis. POA with MRSA bacteremia. 12/06 with repeat 12/10 likely positive. 12/14 so far neg. No pressors -TTE neg. repeat BC positive, 12/10 MRSA pneumonia, POA Hypotension, now off pressor Pancytopenia/anemia - some better PCN allergy, reaction unknown Acute encephalopathy -sedated LEONARDO Acute respiratory failure h/o breast cancer, s/p chemo. Port removed Lupus on Plaquenil Recent E. coli UTI MRSA nares, 11/25, 12/06 Diarrhea. C. diff. neg 12/06 Plan Plan of Care Given thrombocytopenia (avoid Zyvox and has bacteremia)/Acute resp failure ( Avoid Dapto no lung coverage) ? ant chest rash and ? Vanc kinetics - will cont Teflaro to cover lung and blood. Monitor WBC, Cr and temp. Repeat BC from 12/14 pending am labs Critically ill KEITH DAIGLE MD Dec 18, 2016 08:24
[2016-12-18] MEDS: FUROSEMIDE 40 MG/4 ML VIAL. IVP SCH (08:42)
[2016-12-18] MEDS: PREGABALIN 75 MG CAPSULE PO SCH (08:42)
[2016-12-18] MEDS: ALPRAZolam 0.25 MG TABLET PO SCH (08:42)
[2016-12-18] MEDS: FAMOTIDINE 20 MG/2 ML VIAL IVP SCH ×2 (08:42→21:23)
[2016-12-18] MEDS: HYDROCORTISONE SOD SUCC/PF 100 MG/2 ML VIAL. IV SCH (08:42)
[2016-12-18] MEDS: CHLORHEXIDINE 0.12% 15 ML MOUTHWASH. MM SCH ×2 (08:43→21:24)
[2016-12-18] MEDS: buPROPion 100 MG TABLET PO SCH ×2 (08:43→21:24)
--- NOTE | 2016-12-18 09:16 | PDOC ---
PROGRESS NOTES Chief Complaint Chief Complaint AMS Sepsis ASSESSMENT AND PLAN: 1. Septic shock: POA ,requiring pressors. now resolved 2. MRSA bacteremia: Echo showing "2.7 x 2.0 cm. hypoechoic structure attached to the [port] catheter consistent with vegetation"; port removed. on ceftaroline 3. Metabolic encephalopathy: due to sepsis, hypotension. appears resolved 4. Acute respiratory failure: re-intubation 12/11 - extubated 12/13, re- intubated 12/15. d/w daughter re trach/PEG, family meeting later today 5. Pancytopenia: slowly recovering WBC and plts. suspect 2/2 sepsis 6. Anemia: s/p PRBC x1 on 12/13; H/H slowly drifting. ? GIB with elevated BUN. check OB stool 7. LEONARDO on CKD3: creat at baseline, but significant uremia (Vs GIB) 8. Hyponatremia: resolved. now hypernatremia - increase free water in OG 9. Hypokalemia: resolved 10. DM: well controlled 11. SLE: meds on hold 12. Hypoalbuminemia: severe, prob multifactorial, incl malnutrition, inflammation. 13. Recently treated urinary tract infection, Escherichia coli. 14. Hx breast CA: completed adjuvant AC and Herceptin in Jul 2016; echo with nl EF and wall motion History of Present Illness History of Present Illness intubated, lightly sedated. responding w/head movements Vitals Vitals Vital Signs Date Time Temp Pulse Resp B/P (MAP) Pulse Ox O2 Delivery O2 Flow Rate FiO2 12/18/16 07:19 93 Ventilator 12/18/16 06:00 75 14 108/55 (72) 12/18/16 04:00 98.0 98.0 12/17/16 15:30 2.0 Physical Exam General: Alert, Oriented X3, No acute distress Heart: Regular rate Lungs: Other (UAm rhonchi. lung field posteriorly clear) Abdomen: Normal bowel sounds, Soft, No tenderness Extremities: No clubbing, Other (2+ edema) Skin: Other (several small echymoses over UE) Labs LABS Laboratory Tests Test 12/17/16 11:34 12/17/16 18:28 12/17/16 23:52 12/18/16 05:28 Glucose (Fingerstick) 126 mg/dL (70-99) 135 mg/dL (70-99) 97 mg/dL (70-99) 116 mg/dL (70-99) Test 12/18/16 08:00 O2 Saturation 97 % (92-99) Arterial Blood pH 7.43 (7.35-7.45) Arterial Blood pCO2 at Patient Temp 36 mmHg (35-46) Arterial Blood pO2 at Patient Temp 96 mmHg (75-108) Arterial Blood HCO3 24 mmol/L (21-28) Arterial Blood Base Excess -1 mmol/L (-3-3) FiO2 30 Nutrition Consultation Dietary Evaluation: Recommendations by RD: Increase Calorie Intake, PPN/TPN Comments: Rec. resume the TF's when medically appropriate TF goal rate adjusted as pt is receiving 505 calories/day from propofol Rec. Diabetisource AC, goal rate 45 ml/hr start at 25 ml/hr, increase by 25 ml/hr q8h to goal flushes 175 cc q4h add 1 packet of prostat/morning Expected Outcomes/Goals: tolerate the TF's at goal rate- in progress meet 75% estimated nutrition needs- in progress Malnutrition Findings: Reduced Customer Experience Retail Clerk Strength: N/A Reduced Customer Experience Retail Clerk Strength (Non-Sev: N/A Malnutrition related to morbid: No Weight Status: Obese RICO WOODWARD MD Dec 18, 2016 09:16
--- NOTE | 2016-12-18 11:06 | PDOC ---
PULMONARY PROGRESS NOTES Subjective ON VENT AC MODE Vitals Vital Signs Date Time Temp Pulse Resp B/P (MAP) Pulse Ox O2 Delivery O2 Flow Rate FiO2 12/18/16 10:00 72 15 110/58 (75) 97 Ventilator 12/18/16 07:00 97.6 97.6 12/17/16 15:30 2.0 General: No acute distress HEENT: Other (nc at perrl, orally intubated, nose clear... neck no lap, no thyromegaly) Lungs: Other (UAm rhonchi. lung field posteriorly clear) Cardiovascular: S1, S2 Abdomen: Soft, Non-tender Neuro Exam: Alert Extremities: Other (edema) Skin: Warm Labs Laboratory Tests Test 12/16/16 12:37 12/16/16 17:22 12/17/16 00:34 12/17/16 06:11 Glucose (Fingerstick) 101 mg/dL (70-99) 124 mg/dL (70-99) 94 mg/dL (70-99) 114 mg/dL (70-99) Test 12/17/16 08:05 12/17/16 08:20 12/17/16 11:34 12/17/16 18:28 White Blood Count 4.2 x10^3/uL (4.0-11.0) Red Blood Count 2.37 x10^6/uL (3.50-5.40) Hemoglobin 7.2 g/dL (12.0-15.5) Hematocrit 21.3 % (36.0-47.0) Mean Corpuscular Volume 90 fL (79-100) Mean Corpuscular Hemoglobin 30 pg (25-35) Mean Corpuscular Hemoglobin Concent 34 g/dL (31-37) Red Cell Distribution Width 15.6 % (11.5-14.5) Platelet Count 61 x10^3/uL (140-400) Neutrophils (%) (Auto) 85 % (31-73) Lymphocytes (%) (Auto) 10 % (24-48) Monocytes (%) (Auto) 4 % (0-9) Eosinophils (%) (Auto) 0 % (0-3) Basophils (%) (Auto) 0 % (0-3) Neutrophils # (Auto) 3.6 x10^3uL (1.8-7.7) Lymphocytes # (Auto) 0.4 x10^3/uL (1.0-4.8) Monocytes # (Auto) 0.2 x10^3/uL (0.0-1.1) Eosinophils # (Auto) 0.0 x10^3/uL (0.0-0.7) Basophils # (Auto) 0.0 x10^3/uL (0.0-0.2) Prothrombin Time 14.9 SEC (11.7-14.0) Prothromb Time International Ratio 1.2 (0.8-1.1) Sodium Level 149 mmol/L (136-145) Potassium Level 3.4 mmol/L (3.5-5.1) Chloride Level 114 mmol/L (98-107) Carbon Dioxide Level 26 mmol/L (21-32) Anion Gap 9 (6-14) Blood Urea Nitrogen 54 mg/dL (7-20) Creatinine 1.1 mg/dL (0.6-1.0) Estimated GFR (Cockcroft-Gault) 62.4 Glucose Level 108 mg/dL (70-99) Calcium Level 8.5 mg/dL (8.5-10.1) O2 Saturation 97 % (92-99) Arterial Blood pH 7.51 (7.35-7.45) Arterial Blood pCO2 at Patient Temp 28 mmHg (35-46) Arterial Blood pO2 at Patient Temp 100 mmHg (75-108) Arterial Blood HCO3 22 mmol/L (21-28) Arterial Blood Base Excess -1 mmol/L (-3-3) FiO2 30 Glucose (Fingerstick) 126 mg/dL (70-99) 135 mg/dL (70-99) Test 12/17/16 23:52 12/18/16 05:28 12/18/16 08:00 Glucose (Fingerstick) 97 mg/dL (70-99) 116 mg/dL (70-99) O2 Saturation 97 % (92-99) Arterial Blood pH 7.43 (7.35-7.45) Arterial Blood pCO2 at Patient Temp 36 mmHg (35-46) Arterial Blood pO2 at Patient Temp 96 mmHg (75-108) Arterial Blood HCO3 24 mmol/L (21-28) Arterial Blood Base Excess -1 mmol/L (-3-3) FiO2 30 Laboratory Tests Test 12/17/16 11:34 12/17/16 18:28 12/17/16 23:52 12/18/16 05:28 Glucose (Fingerstick) 126 mg/dL (70-99) 135 mg/dL (70-99) 97 mg/dL (70-99) 116 mg/dL (70-99) Test 12/18/16 08:00 O2 Saturation 97 % (92-99) Arterial Blood pH 7.43 (7.35-7.45) Arterial Blood pCO2 at Patient Temp 36 mmHg (35-46) Arterial Blood pO2 at Patient Temp 96 mmHg (75-108) Arterial Blood HCO3 24 mmol/L (21-28) Arterial Blood Base Excess -1 mmol/L (-3-3) FiO2 30 Medications Active Scripts Medications Dose Route/Sig Max Daily Dose Days Date Category Oxycodone Hcl 5 Mg Tablet 5 Mg PO PRN Q6HRS PRN 11/28/16 Rx Albuterol Sulfate Neb Soln (Albuterol Sulfate) 1.25 Mg/3 Ml Vial.neb 1 Vial NEB Q6HRS 11/25/16 Reported Ranitidine Hcl 150 Mg Capsule 75 Mg PO DAILY 11/25/16 Reported Ondansetron Hcl 8 Mg Tablet 8 Mg PO DAILY 11/25/16 Reported Azithromycin Tablet (Azithromycin) 250 Mg Tablet 250 Mg PO DAILY 11/25/16 Reported Bupropion Hcl 100 Mg Tablet 100 Mg PO BID 11/25/16 Reported Nasal Allergy Aurora (Cromolyn Sodium) 13 Ml Aurora.pump 13 Ml NS DAILY 11/25/16 Reported Gabapentin 300 Mg Capsule 300 Mg PO BID 11/25/16 Reported Hydroxyzine Hcl 25 Mg Tablet 25 Mg PO DAILY 11/25/16 Reported Nystatin 15 Gm Cream..g. 15 Gm TP BID 11/25/16 Reported Duloxetine Hcl 60 Mg Capsule.dr 60 Mg PO DAILY 11/25/16 Reported Clonidine Hcl 0.1 Mg Tablet 0.1 Mg PO DAILY 11/25/16 Reported Lisinopril 20 Mg Tablet 20 Mg PO DAILY 11/25/16 Reported Famciclovir 125 Mg Tablet 125 Mg PO DAILY 11/25/16 Reported Ropinirole Hcl 0.25 Mg Tablet 0.25 Mg PO DAILY 11/25/16 Reported Hydroxychloroquine Sulfate 200 Mg Tablet 200 Mg PO DAILY 11/25/16 Reported Lyrica (Pregabalin) 150 Mg Capsule 150 Mg PO DAILY 11/25/16 Reported Furosemide 20 Mg Tablet 20 Mg PO DAILY 11/25/16 Reported Alprazolam 0.25 Mg Tablet 0.25 Mg PO 11/25/16 Reported Oxycodone Hcl 5 Mg Tablet 5 Mg PO PRN Q4HRS PRN 11/25/16 Reported Ibuprofen 400 Mg Tablet 400 Mg PO PRN DAILY PRN 05/11/15 Reported Multivitamins (Multivitamin) 1 Each Tablet 1 Each PO DAILY 05/11/15 Reported Oxycodone-Acetaminophen 10-325 (Oxycodone Hcl/Acetaminophen) 1 Each Tablet 1 Each PO PRN Q4-6HRS PRN 05/11/15 Reported Plaquenil (Hydroxychloroquine Sulfate) 200 Mg Tablet 200 Mg PO BID 08/19/13 Reported Comments CXR REVIEWED CHF Impression . 1. Acute respiratory failure, multifactorial in etiology. THIRD INTUBATION 12/16 2. Abnormal chest x-ray could be secondary to volume overload, congestive heart failure or pneumonia. 3. Septic shock, bacteremia, g + cocci 4. Hypotension, resolved. 5. Pancytopenia. 6. Systemic lupus erythematosus, immunocompromised. 7. Hyponatremia. 8. Acute kidney injury. 9. History of breast cancer. 10. Hepatitis C. 11. Gastroesophageal reflux disease. 12. MRSA colonization. 13. ACUTE Blood loss anemia 14. POSITIVE CHARLI 12/16 Plan . ANTIBX PER ID SUSPECT MOST OF CXR FINDINGS RELATED TO EDEMA, NEEDS LASIX RESP STATUS DETERIORATED REINTUBATED 12/16 FOR THIRD TIME SHE NEEDS A TRACH . DECISION TO BE MADE SOON TUBE FEEDING REINTUBATED 12/10 EXTUBATED 12/13 UPPER EXT EDEMA TRANSFUSE NEEDED JOSE ROBERTO BYRNES MD Dec 18, 2016 11:06
--- NOTE | 2016-12-18 13:20 | PDOC2 ---
GI CONSULT Reason For Consult: PEG HPI: HPI: History from chart, RN, pt/family. 55 y/o female admitted on 12/06/16 w/ septic shock. For acute resp failure, has been intubated three times (last 12/16), also s/p bronchoscopy. H/o breast cancer, treatment via port finished in 2016. CHARLI this admission w/ vegetation, port removed. Additionally has pancytopenia, heme/onc has seen, likely 2/2 sepsis/bacteremia. Was transfused 1 unit pRBC on 12/13, hemoccult neg on 12/07. H/o IVDU and Hep C, untreated, ? cirrhosis. Daughter SIMON Amaral, here from [place], has decided to proceed w/ trach/PEG, hence GI consult. H/o occasional heartburn after eating peppers. Had colonoscopy w/ Dr. Karolina Manzano in 2013, believes normal. Most recent labs: WBC 4.2, Hgb 7.2, plt 61, BUN 54, Cr 1.1. Currently has OG for tube feeds. Per RN, has been approved for [facility]; her insurance ([employer]) is out of network for [employer]. On IV atbx and Pepcid. Dr. Canas consulted re: trach. PMH: PMH: lupus (on Plaquenil at home), Hep C and B, bipolar/anxiety/depression, CTS, restless leg syndrome, CKD, skin cancer, cervical cancer, breast cancer, port placement/removal, right lumpectomy, lymph node biopsy, right mastectomy, cholecystectomy, cervical laminectomy, tonsillectomy, surgery for bone spurs, cervical conization FH: Family History: Cancer (rectal and breast cancer) Social History: Smoke: <1 pack per day ALCOHOL: occassional Drugs: Other (h/o IVDU) ROS: GEN: Denies fevers, chills, sweats HEENT: Denies blurred vision, sore throat CV: Denies chest pain RESP: Denies shortness of air, cough GI: Per HPI : Denies hematuria, dysuria ENDO: Denies weight changes NEURO: Denies confusion, dizziness MSK: +weakness SKIN: Denies jaundice, pruritus Vitals: Vitals: Vital Signs Date Time Temp Pulse Resp B/P (MAP) Pulse Ox O2 Delivery O2 Flow Rate FiO2 12/18/16 12:50 96 Ventilator 12/18/16 12:00 98.4 81 14 113/61 (78) 98.4 12/17/16 15:30 2.0 Labs: Labs: Laboratory Tests Test 12/17/16 18:28 12/17/16 23:52 12/18/16 05:28 12/18/16 08:00 Glucose (Fingerstick) 135 mg/dL (70-99) 97 mg/dL (70-99) 116 mg/dL (70-99) O2 Saturation 97 % (92-99) Arterial Blood pH 7.43 (7.35-7.45) Arterial Blood pCO2 at Patient Temp 36 mmHg (35-46) Arterial Blood pO2 at Patient Temp 96 mmHg (75-108) Arterial Blood HCO3 24 mmol/L (21-28) Arterial Blood Base Excess -1 mmol/L (-3-3) FiO2 30 Test 12/18/16 12:18 Glucose (Fingerstick) 153 mg/dL (70-99) Allergies: Coded Allergies: I S O L A T I O N *CONTACT* (Verified Allergy, Unknown, 11/27/16) mrsa Penicillins (Verified Adverse Reaction, Intermediate, NAUSEA AND VOMITING WITH PENICILLIN INJECTIONS/ORAL IS OK, 05/12/15) diazepam (Verified Adverse Reaction, Intermediate, NAUSEA AND VOMITING WITH IV DOSES/OK WITH ORAL FORM, 05/12/15) ibuprofen (Verified Adverse Reaction, Intermediate, LARGE DOSES CAUSE GI UPSET, 05/12/15) Medications: Current Medications Medications (Trade) Dose Ordered Sig/Altaf Route PRN Reason Start Time Stop Time Status Last Admin Dose Admin Lidocaine/Sodium Bicarbonate (Buffered Lidocaine 1%) 3 ml 1X ONCE IJ 12/17/16 15:15 12/17/16 15:16 DC 12/17/16 16:01 Heparin Sodium/ Sodium Chloride 60 unit 1X ONCE IV 12/17/16 15:15 12/17/16 15:16 DC 12/17/16 16:02 Lidocaine/ Epinephrine (Xylocaine 1%-Epi 1:100,000) 10 ml 1X ONCE INJ 12/17/16 15:15 12/17/16 15:16 DC 12/17/16 16:01 Imaging: Imaging: KUB 12/17/16 Impression: Esophagogastric tube tip projects in the body of the stomach. CXR 12/17/16 IMPRESSION: Placement of a right subclavian central line and the tip is located within the right atrium. No pneumothorax is seen. Improving CHF or fluid overload. Echocardiogram 12/16/16 <Conclusion> The left ventricular systolic function is normal and the ejection fraction is within normal range. The Ejection Fraction is >55%. There is normal LV segmental wall motion. A catheter is seen in the SVC/right atrium. There is a a 2.7 x 2.0 cm. hypoechoic structure attached to the catheter consistent with vegetation. PE: GEN: intubated HEENT: Atraumatic, PERRL LUNGS: clear/vent HEART: RRR +murm ABD: NABS, S/ND/NT EXTREMITY: No edema NEURO/PSYCH: awake/alert A/P: A/P: Resp failure requiring repeated intubations -DPOA wishes to pursue trach/PEG Bacteremia -echo w/ vegetation, port removed -on IV atbx Pancytopenia -heme/onc has seen, likely related to sepsis/bacteremia -Hgb mostly in 7-8s, was transfused 1 unit pRBCs on 12/13 -plt 61, WBC currently WNL Hep C -untreated, ?cirrhosis -thrombocytopenia as above, INR 1.2 Heartburn -occasionally after eating peppers CRC screen -colonoscopy reportedly normal 2013 -- D/w daughter Cristin SIMON. D/w Dr. Milian. With thrombocytopenia, h/o Hep w/ ?cirrhosis, need to check abd imaging to assess for varices before considering PEG placement. D/w [place]. ANSELMO JIN Dec 18, 2016 13:19
--- NOTE | 2016-12-18 13:46 | PDOC2 ---
PALLIATIVE CARE Palliative Care Note Palliative Care Patient remain intubated; lightly sedated. Spoke with daughter Araceli and friend Ruma. Reviewed medical condition; Labs, x-ray results. Goal is to continue current treatment plan. Family understands that patient will need trach and PEG to continue aggressive care Daughter Araceli request Trach and PEG. Understand patient likely will be transferred to [facility] soon. Dr. Quijano, Dr. Becerra aware of plan. JOSE ELIAS SMITH Dec 18, 2016 13:46
[2016-12-18] MEDS ORDERED: CONTRAST GIVEN MC PRN (14:00)
[2016-12-18] MEDS ORDERED: IOHEXOL 300 MG/ML 75 ML VIAL IV ONE (14:00)
--- NOTE | 2016-12-18 15:23 | RAD ---
Indication: Thrombocytopenia and hepatitis C. Pre and post intravenous contrast axial imaging of the abdomen and pelvis was performed utilizing the liver protocol. Hepatic arterial and portal venous phase postcontrast imaging was performed. Moderate bilateral pleural effusions are identified. There is associated bibasilar atelectasis or consolidation. Mild perihepatic ascites is identified. No discrete liver mass is identified. The portal vein is patent. No biliary ductal dilatation is seen. The gallbladder appears surgically absent. The pancreas is unremarkable. The spleen is enlarged measuring approximately 17 cm. No adrenal mass is seen. The kidneys are unremarkable. Aorta is heavily calcified but nonaneurysmal. The small and large bowel loops are normal caliber. No significant upper abdominal varices are identified. Imaging through the pelvis shows a small amount of free fluid. The bladder is decompressed by a Vaughan catheter. The uterus is unremarkable. Impression: 1. Moderate bilateral pleural effusions with bibasilar consolidation. 2. Splenomegaly. 3. No discrete liver mass is identified. There is mild upper abdominal and pelvic ascites. No varices are detected.
--- NOTE | 2016-12-18 15:41 | PDOC4 ---
PROCEDURE Procedure 12/17/16 asked by IR to help with removal left sided power port area was prepped and draped local anesthetic infiltrated incision made port and catheter removed intact closed with interrupted prolene sutures pt tolerated well JIM MATOS MD Dec 18, 2016 15:41
[2016-12-18] MEDS: rOPINIRole 0.25 MG TABLET. PO SCH (21:24)
[2016-12-19] VITALS (28 sets, daily range): BP systolic 100–142; BP diastolic 48–74
[2016-12-19] MEDS: PROPOFOL 100 ML IV PRN ×5 (00:23→21:33)
[2016-12-19] MEDS: CEFTAROLINE FOSAMIL 600 MG in IV NORMAL SALINE 250ML 250 ML IV SCH ×3 (05:52→21:34)
[2016-12-19] MEDS: INSULIN ASPART 300 UNITS/3 ML INSULN.PEN SQ SCH ×4 (05:56→18:00)
[2016-12-19] MEDS: IPRATRPIUM/ALBUTEROL 0.5/2.5MG 3 ML NEBU. NEB SCH ×4 (07:18→19:33)
[2016-12-19 07:27] LABS: HCO3 ABG 24 mmol/L (21-28); PCO2 ABG 36 mmHg (35-46); PH ABG 7.43 (7.35-7.45); PO2 ABG 85 mmHg (75-108); SAT O2 ABG 95 % (92-99)
--- NOTE | 2016-12-19 08:06 | PDOC ---
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 SKIN: + purpura BLE. fading. Less ant chest erythema - improving Removed Port-a-cath site -clean. [facility] Labs Lab Laboratory Tests Test 12/18/16 12:18 12/18/16 17:58 12/19/16 00:21 12/19/16 05:55 Glucose (Fingerstick) 153 mg/dL (70-99) 147 mg/dL (70-99) 105 mg/dL (70-99) 116 mg/dL (70-99) Objective Assessment Acute resp failure - intubated. Per nursing a lot of plugs suctioned at intubation. s/p bronch 12/16 - no plugs seen Infected port a cath with veg on port seen on CHARLI 12/16 s/p Removal 12/17 Sepsis. POA with MRSA bacteremia. 12/06 with repeat 12/10 likely positive. 12/14 so far neg. No pressors -TTE neg. repeat BC positive, 12/10 MRSA pneumonia, POA Hypotension, now off pressor Pancytopenia/anemia - some better PCN allergy, reaction unknown Acute encephalopathy -sedated LEONARDO Acute respiratory failure h/o breast cancer, s/p chemo. Port removed Lupus on Plaquenil Recent E. coli UTI MRSA nares, 11/25, 12/06 Diarrhea. C. diff. neg 12/06 Plan Plan of Care Given thrombocytopenia (avoid Zyvox and has bacteremia)/Acute resp failure ( Avoid Dapto no lung coverage) ? ant chest rash and ? Vanc kinetics - will cont Teflaro to cover lung and blood. Monitor WBC, Cr -labs pending Repeat BC from 12/14 pending - neg so far F/u cath cults am labs Trach/PEG pending Critically ill KEITH DAIGLE MD Dec 19, 2016 08:06
[2016-12-19] MEDS: buPROPion 100 MG TABLET PO SCH ×2 (08:14→21:35)
[2016-12-19] MEDS: ALPRAZolam 0.25 MG TABLET PO SCH (08:16)
[2016-12-19] MEDS: FUROSEMIDE 40 MG/4 ML VIAL. IVP SCH (08:16)
[2016-12-19] MEDS: PREGABALIN 75 MG CAPSULE PO SCH ×2 (08:16→21:35)
[2016-12-19] MEDS: FAMOTIDINE 20 MG/2 ML VIAL IVP SCH ×2 (08:17→21:34)
[2016-12-19] MEDS: HYDROCORTISONE SOD SUCC/PF 100 MG/2 ML VIAL. IV SCH (08:17)
[2016-12-19] MEDS: CHLORHEXIDINE 0.12% 15 ML MOUTHWASH. MM SCH ×2 (08:18→21:34)
[2016-12-19 08:44] LABS: BASO % 1 % (0-3); EOS % 1 % (0-3); LYMPH # 0.5 x10^3/uL (1.0-4.8); LYMPH % 15 % (24-48); MEAN CORPUSCULAR HEMOGLOBIN 31 pg (25-35); MEAN CORPUSCULAR HGB CONC 33 g/dL (31-37); MEAN CORPUSCULAR VOLUME 91 fL (79-100); MONO % 7 % (0-9); NEUT % 78 % (31-73); PLATELET COUNT 63 x10^3/uL (140-400); RED BLOOD COUNT 2.08 x10^6/uL (3.50-5.40); RED CELL DISTRIBUTION WIDTH 16.3 % (11.5-14.5); WHITE BLOOD COUNT 3.2 x10^3/uL (4.0-11.0)
[2016-12-19 09:06] LABS: CALCIUM 7.9 mg/dL (8.5-10.1); CREATININE 1.1 mg/dL (0.6-1.0); GFR 62.4
[2016-12-19 09:21] LABS: HEMOGLOBIN 6.3 g/dL (12.0-15.5)
--- NOTE | 2016-12-19 10:03 | PDOC ---
PULMONARY PROGRESS NOTES Subjective awake, on CPAP Vitals Vital Signs Date Time Temp Pulse Resp B/P (MAP) Pulse Ox O2 Delivery O2 Flow Rate FiO2 12/19/16 09:00 79 24 122/63 (82) 94 Ventilator 12/19/16 08:00 98.5 98.5 General: Alert, No acute distress HEENT: Other (nc at perrl, orally intubated, nose clear... neck no lap, no thyromegaly) Lungs: Other (decrease bs) Cardiovascular: S1, S2 Abdomen: Soft, Non-tender Neuro Exam: Alert Extremities: Other (edema) Skin: Warm Labs Laboratory Tests Test 12/17/16 11:34 12/17/16 18:28 12/17/16 23:52 12/18/16 05:28 Glucose (Fingerstick) 126 mg/dL (70-99) 135 mg/dL (70-99) 97 mg/dL (70-99) 116 mg/dL (70-99) Test 12/18/16 08:00 12/18/16 12:18 12/18/16 17:58 12/19/16 00:21 O2 Saturation 97 % (92-99) Arterial Blood pH 7.43 (7.35-7.45) Arterial Blood pCO2 at Patient Temp 36 mmHg (35-46) Arterial Blood pO2 at Patient Temp 96 mmHg (75-108) Arterial Blood HCO3 24 mmol/L (21-28) Arterial Blood Base Excess -1 mmol/L (-3-3) FiO2 30 Glucose (Fingerstick) 153 mg/dL (70-99) 147 mg/dL (70-99) 105 mg/dL (70-99) Test 12/19/16 05:55 12/19/16 08:30 Glucose (Fingerstick) 116 mg/dL (70-99) White Blood Count 3.2 x10^3/uL (4.0-11.0) Red Blood Count 2.08 x10^6/uL (3.50-5.40) Hemoglobin 6.3 g/dL (12.0-15.5) Hematocrit 19.0 % (36.0-47.0) Mean Corpuscular Volume 91 fL (79-100) Mean Corpuscular Hemoglobin 31 pg (25-35) Mean Corpuscular Hemoglobin Concent 33 g/dL (31-37) Red Cell Distribution Width 16.3 % (11.5-14.5) Platelet Count 63 x10^3/uL (140-400) Neutrophils (%) (Auto) 78 % (31-73) Lymphocytes (%) (Auto) 15 % (24-48) Monocytes (%) (Auto) 7 % (0-9) Eosinophils (%) (Auto) 1 % (0-3) Basophils (%) (Auto) 1 % (0-3) Neutrophils # (Auto) 2.4 x10^3uL (1.8-7.7) Lymphocytes # (Auto) 0.5 x10^3/uL (1.0-4.8) Monocytes # (Auto) 0.2 x10^3/uL (0.0-1.1) Eosinophils # (Auto) 0.0 x10^3/uL (0.0-0.7) Basophils # (Auto) 0.0 x10^3/uL (0.0-0.2) Sodium Level 148 mmol/L (136-145) Potassium Level 3.0 mmol/L (3.5-5.1) Chloride Level 112 mmol/L (98-107) Carbon Dioxide Level 28 mmol/L (21-32) Anion Gap 8 (6-14) Blood Urea Nitrogen 48 mg/dL (7-20) Creatinine 1.1 mg/dL (0.6-1.0) Estimated GFR (Cockcroft-Gault) 62.4 Glucose Level 124 mg/dL (70-99) Calcium Level 7.9 mg/dL (8.5-10.1) Laboratory Tests Test 12/18/16 12:18 12/18/16 17:58 12/19/16 00:21 12/19/16 05:55 Glucose (Fingerstick) 153 mg/dL (70-99) 147 mg/dL (70-99) 105 mg/dL (70-99) 116 mg/dL (70-99) Test 12/19/16 08:30 White Blood Count 3.2 x10^3/uL (4.0-11.0) Red Blood Count 2.08 x10^6/uL (3.50-5.40) Hemoglobin 6.3 g/dL (12.0-15.5) Hematocrit 19.0 % (36.0-47.0) Mean Corpuscular Volume 91 fL (79-100) Mean Corpuscular Hemoglobin 31 pg (25-35) Mean Corpuscular Hemoglobin Concent 33 g/dL (31-37) Red Cell Distribution Width 16.3 % (11.5-14.5) Platelet Count 63 x10^3/uL (140-400) Neutrophils (%) (Auto) 78 % (31-73) Lymphocytes (%) (Auto) 15 % (24-48) Monocytes (%) (Auto) 7 % (0-9) Eosinophils (%) (Auto) 1 % (0-3) Basophils (%) (Auto) 1 % (0-3) Neutrophils # (Auto) 2.4 x10^3uL (1.8-7.7) Lymphocytes # (Auto) 0.5 x10^3/uL (1.0-4.8) Monocytes # (Auto) 0.2 x10^3/uL (0.0-1.1) Eosinophils # (Auto) 0.0 x10^3/uL (0.0-0.7) Basophils # (Auto) 0.0 x10^3/uL (0.0-0.2) Sodium Level 148 mmol/L (136-145) Potassium Level 3.0 mmol/L (3.5-5.1) Chloride Level 112 mmol/L (98-107) Carbon Dioxide Level 28 mmol/L (21-32) Anion Gap 8 (6-14) Blood Urea Nitrogen 48 mg/dL (7-20) Creatinine 1.1 mg/dL (0.6-1.0) Estimated GFR (Cockcroft-Gault) 62.4 Glucose Level 124 mg/dL (70-99) Calcium Level 7.9 mg/dL (8.5-10.1) Medications Active Scripts Medications Dose Route/Sig Max Daily Dose Days Date Category Oxycodone Hcl 5 Mg Tablet 5 Mg PO PRN Q6HRS PRN 11/28/16 Rx Albuterol Sulfate Neb Soln (Albuterol Sulfate) 1.25 Mg/3 Ml Vial.neb 1 Vial NEB Q6HRS 11/25/16 Reported Ranitidine Hcl 150 Mg Capsule 75 Mg PO DAILY 11/25/16 Reported Ondansetron Hcl 8 Mg Tablet 8 Mg PO DAILY 11/25/16 Reported Azithromycin Tablet (Azithromycin) 250 Mg Tablet 250 Mg PO DAILY 11/25/16 Reported Bupropion Hcl 100 Mg Tablet 100 Mg PO BID 11/25/16 Reported Nasal Allergy [place] (Cromolyn Sodium) 13 Ml [place].pump 13 Ml NS DAILY 11/25/16 Reported Gabapentin 300 Mg Capsule 300 Mg PO BID 11/25/16 Reported Hydroxyzine Hcl 25 Mg Tablet 25 Mg PO DAILY 11/25/16 Reported Nystatin 15 Gm Cream..g. 15 Gm TP BID 11/25/16 Reported Duloxetine Hcl 60 Mg Capsule.dr 60 Mg PO DAILY 11/25/16 Reported Clonidine Hcl 0.1 Mg Tablet 0.1 Mg PO DAILY 11/25/16 Reported Lisinopril 20 Mg Tablet 20 Mg PO DAILY 11/25/16 Reported Famciclovir 125 Mg Tablet 125 Mg PO DAILY 11/25/16 Reported Ropinirole Hcl 0.25 Mg Tablet 0.25 Mg PO DAILY 11/25/16 Reported Hydroxychloroquine Sulfate 200 Mg Tablet 200 Mg PO DAILY 11/25/16 Reported Lyrica (Pregabalin) 150 Mg Capsule 150 Mg PO DAILY 11/25/16 Reported Furosemide 20 Mg Tablet 20 Mg PO DAILY 11/25/16 Reported Alprazolam 0.25 Mg Tablet 0.25 Mg PO 11/25/16 Reported Oxycodone Hcl 5 Mg Tablet 5 Mg PO PRN Q4HRS PRN 11/25/16 Reported Ibuprofen 400 Mg Tablet 400 Mg PO PRN DAILY PRN 05/11/15 Reported Multivitamins (Multivitamin) 1 Each Tablet 1 Each PO DAILY 05/11/15 Reported Oxycodone-Acetaminophen 10-325 (Oxycodone Hcl/Acetaminophen) 1 Each Tablet 1 Each PO PRN Q4-6HRS PRN 05/11/15 Reported Plaquenil (Hydroxychloroquine Sulfate) 200 Mg Tablet 200 Mg PO BID 08/19/13 Reported Comments CXR REVIEWED CHF Impression . 1. Acute respiratory failure, multifactorial in etiology. THIRD INTUBATION 12/16 2. Abnormal chest x-ray secondary to volume overload, congestive heart failure , cannot exclude pneumonia. 3. Septic shock, bacteremia, g + cocci 4. Hypotension, resolved. 5. Pancytopenia. 6. Systemic lupus erythematosus, immunocompromised. 7. Hyponatremia. 8. Acute kidney injury. 9. History of breast cancer. 10. Hepatitis C. 11. Gastroesophageal reflux disease. 12. MRSA colonization. 13. ACUTE Blood loss anemia 14. POSITIVE CHARLI 12/16 Plan . CPAP DURING DAY ANTIBX PER ID SUSPECT MOST OF CXR FINDINGS RELATED TO EDEMA, LASIX RESP STATUS DETERIORATED REINTUBATED 12/16 FOR THIRD TIME SHE NEEDS A TRACH . FAMILY AGREES. DUE TO INSURANCE REASONS, CANNOT BE DONE AT [facility] [place] WITH TRANSFER TO [facility] REINTUBATED 12/10 EXTUBATED 12/13 UPPER EXT EDEMA TRANSFUSE NEEDED D/W RN/PCP JOSE ROBERTO BYRNES MD Dec 19, 2016 10:03
--- NOTE | 2016-12-19 10:33 | PDOC ---
PROGRESS NOTES Chief Complaint Chief Complaint AMS Sepsis ASSESSMENT AND PLAN: 1. Septic shock: POA, initially requiring pressors. now resolved 2. MRSA bacteremia: Echo showing "2.7 x 2.0 cm. hypoechoic structure attached to the [port] catheter consistent with vegetation"; port removed. on ceftaroline (day #3) 3. Metabolic encephalopathy: due to sepsis, hypotension. appears resolved 4. Acute respiratory failure: re-intubation 12/11 - extubated 12/13, re- intubated 12/15. d/w daughter re trach/PEG, they want to go forward, but difficult to set up at this time 5. Pancytopenia: slowly recovering WBC and plts. suspect 2/2 sepsis 6. Anemia: s/p PRBC x1 on 12/13; H/H slowly drifting. ? GIB with elevated BUN. re-check OB stool pending (had neg test on 12/07). transfuse PRBC x2 today. GI following 7. LEONARDO on CKD3: creat at baseline, but significant uremia (vs GIB) 8. Hyponatremia: resolved. now hypernatremia - persisting despite increased free water TF. 1/2 NS bolus with 20 K+ 9. Hypokalemia: recurrent, replete per IV and NG 10. DM: well controlled 11. SLE: meds on hold 12. Hypoalbuminemia: severe, prob multifactorial, incl malnutrition, inflammation. 13. Recently treated urinary tract infection, Escherichia coli. 14. Hx breast CA: completed adjuvant AC and Herceptin in Jul 2016; echo with nl EF and wall motion History of Present Illness History of Present Illness intubated, lightly sedated. responding w/head movements. wants to sit up in chair. indicates pain in L thigh Vitals Vitals Vital Signs Date Time Temp Pulse Resp B/P (MAP) Pulse Ox O2 Delivery O2 Flow Rate FiO2 12/19/16 09:00 79 24 122/63 (82) 94 Ventilator 12/19/16 08:00 98.5 98.5 12/17/16 15:30 2.0 Physical Exam General: Alert, Cooperative, No acute distress Heart: Regular rate, Other (3/6 systolic murmur) Lungs: Other (decrease bs) Abdomen: Normal bowel sounds, Soft, No tenderness Extremities: No clubbing, Other (2+ edema/[place]) Skin: Other (several small echymoses over UE) Labs LABS Laboratory Tests Test 12/18/16 12:18 12/18/16 17:58 12/19/16 00:21 12/19/16 05:55 Glucose (Fingerstick) 153 mg/dL (70-99) 147 mg/dL (70-99) 105 mg/dL (70-99) 116 mg/dL (70-99) Test 12/19/16 08:30 White Blood Count 3.2 x10^3/uL (4.0-11.0) Red Blood Count 2.08 x10^6/uL (3.50-5.40) Hemoglobin 6.3 g/dL (12.0-15.5) Hematocrit 19.0 % (36.0-47.0) Mean Corpuscular Volume 91 fL (79-100) Mean Corpuscular Hemoglobin 31 pg (25-35) Mean Corpuscular Hemoglobin Concent 33 g/dL (31-37) Red Cell Distribution Width 16.3 % (11.5-14.5) Platelet Count 63 x10^3/uL (140-400) Neutrophils (%) (Auto) 78 % (31-73) Lymphocytes (%) (Auto) 15 % (24-48) Monocytes (%) (Auto) 7 % (0-9) Eosinophils (%) (Auto) 1 % (0-3) Basophils (%) (Auto) 1 % (0-3) Neutrophils # (Auto) 2.4 x10^3uL (1.8-7.7) Lymphocytes # (Auto) 0.5 x10^3/uL (1.0-4.8) Monocytes # (Auto) 0.2 x10^3/uL (0.0-1.1) Eosinophils # (Auto) 0.0 x10^3/uL (0.0-0.7) Basophils # (Auto) 0.0 x10^3/uL (0.0-0.2) Sodium Level 148 mmol/L (136-145) Potassium Level 3.0 mmol/L (3.5-5.1) Chloride Level 112 mmol/L (98-107) Carbon Dioxide Level 28 mmol/L (21-32) Anion Gap 8 (6-14) Blood Urea Nitrogen 48 mg/dL (7-20) Creatinine 1.1 mg/dL (0.6-1.0) Estimated GFR (Cockcroft-Gault) 62.4 Glucose Level 124 mg/dL (70-99) Calcium Level 7.9 mg/dL (8.5-10.1) Nutrition Consultation Dietary Evaluation: Recommendations by RD: Increase Calorie Intake, PPN/TPN Comments: Rec. continue TF's: Diabetisource AC, goal rate 45 ml/hr flushes 200 cc q4h add 1 packet of prostat/morning Expected Outcomes/Goals: tolerate the TF's at goal rate- met meet 75% estimated nutrition needs- met Malnutrition Findings: Reduced Reinspector Strength: N/A Reduced Reinspector Strength (Non-Sev: N/A Malnutrition related to morbid: No Weight Status: Obese RICO WOODWARD MD Dec 19, 2016 10:33
[2016-12-19 10:34] LABS: FIO2 ABG 30%
[2016-12-19] MEDS: POTASSIUM CHLORIDE 20 MEQ TABLET.ER. PO SCH ×2 (10:47→14:51)
[2016-12-19] MEDS ORDERED: CHLO473M MM (10:53)
[2016-12-19] MEDS ORDERED: MORP2CAR IV (10:53)
[2016-12-19] MEDS ORDERED: RANI150C PO (10:53)
[2016-12-19] MEDS ORDERED: HYDR15SO4 PO (10:53)
[2016-12-19] MEDS ORDERED: INSU100I17 SQ (10:53)
[2016-12-19] MEDS ORDERED: ONDA4VIA4 IV (10:53)
[2016-12-19] MEDS ORDERED: ZOLP5TAB PO (10:53)
[2016-12-19] MEDS ORDERED: HYDR20VI5 IVP (10:53)
[2016-12-19] MEDS ORDERED: FURO20TA3 PO (10:53)
[2016-12-19] MEDS ORDERED: POTASSIUM CHLORIDE IV ONE (11:00)
[2016-12-19] MEDS ORDERED: 1/2 NORMAL SALINE IV ONE (11:00)
--- NOTE | 2016-12-19 11:27 | PDOC ---
Subjective: Subjective: Indicates wants to be extubated. Objective: Objective: DC to [facility] today. Vital Signs: Vital Signs Date Time Temp Pulse Resp B/P (MAP) Pulse Ox O2 Delivery O2 Flow Rate FiO2 12/19/16 11:00 75 17 136/66 (89) 98 Ventilator 12/19/16 08:00 98.5 98.5 Labs: Laboratory Tests Test 12/18/16 12:18 12/18/16 17:58 12/19/16 00:21 12/19/16 05:55 Glucose (Fingerstick) 153 mg/dL (70-99) 147 mg/dL (70-99) 105 mg/dL (70-99) 116 mg/dL (70-99) Imaging: CT A/P w/ IV contrast 12/18/16 Moderate bilateral pleural effusions are identified. There is associated bibasilar atelectasis or consolidation. Mild perihepatic ascites is identified. No discrete liver mass is identified. The portal vein is patent. No biliary ductal dilatation is seen. The gallbladder appears surgically absent. The pancreas is unremarkable. The spleen is enlarged measuring approximately 17 cm. No adrenal mass is seen. The kidneys are unremarkable. Aorta is heavily calcified but nonaneurysmal. The small and large bowel loops are normal caliber. No significant upper abdominal varices are identified. Imaging through the pelvis shows a small amount of free fluid. The bladder is decompressed by a Vaughan catheter. The uterus is unremarkable. Impression: 1. Moderate bilateral pleural effusions with bibasilar consolidation. 2. Splenomegaly. 3. No discrete liver mass is identified. There is mild upper abdominal and pelvic ascites. No varices are detected. PE: GEN: intubated LUNGS: vent HEART: RRR ABD: S/ND/NT NEURO/PSYCH: awake A/P: Resp failure requiring repeated intubations -DPOA wants trach/PEG Pancytopenia -another transfusion planned today, Hgb in 6s w/o obvious bleeding -heme/onc following, likely 2/2 sepsis/bacteremia -colonoscopy 2013 -on IV H2 jeaneth BID Hep C -untreated, CT as above w/o varices, did not ascites and splenomegaly -- Plans to transfer to [facility] before holiday weekend 2/2 insurance issues. Can see Dr. Dorantes for GI care at [facility]. ANSELMO JIN Dec 19, 2016 11:27
--- NOTE | 2016-12-19 12:17 | PDOC ---
PROGRESS NOTES Subjective Subjective c/c - f/u of pancytopenia ROS - awake, has cough, on vent. Objective Objective Vital Signs Date Time Temp Pulse Resp B/P (MAP) Pulse Ox O2 Delivery O2 Flow Rate FiO2 12/19/16 11:23 95 Ventilator 12/19/16 11:00 75 17 136/66 (89) 12/19/16 08:00 98.5 98.5 12/17/16 15:30 2.0 Intake and Output 12/19/16 07:00 Intake Total 4570 ml Output Total 2410 ml Balance 2160 ml IV Total 1396 ml Tube Feeding 2484 ml Other 690 ml Output Urine Total 2410 ml Physical Exam General: Alert, No acute distress Lungs: Normal air movement Assessment Assessment Problems Medical Problems: (1) Respiratory failure Status: Acute ASSESSMENT AND PLAN: The patient is a 55-year-old female with the following medical problems: 1. Acute pancytopenia, likely related to her severe sepsis with methicillin-resistant Staphylococcus aureus bacteremia. Her CBC was normal in late 10/2016. I recommend continuing to treat the underlying infection as you are doing. Transfuse for hemoglobin less than 7, platelets less than 20. She has no evidence of bleeding at this time. 2. Left upper extremity swelling. Ultrasound negative for a DVT 3. 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 She has several risk features. Ultimately, she agreed to have a mastectomy, which was completed in 04/2015. Her tumor was ER/FL negative, HER2 positive. She completed adjuvant Adriamycin/Cytoxan in 06/2015 and Taxol/Herceptin. She completed 1 year of Herceptin in 07/2016. A CT scan in 07/2016 showed indeterminant hilar lymph nodes and pulmonary nodules and bone scan was negative for any metastases. 4. Anemia worse, Hb 6.3, agree to transfuse, monitor hb 5. Thrombocytopenia better at 63, monitor cbc.. 6. Resp failure - appreciate pulm management. 7. Septic shock. Comment Review of Relevant I have reviewed the following items anselmo (where applicable) has been applied. Labs Laboratory Tests Test 12/17/16 18:28 12/17/16 23:52 12/18/16 05:28 12/18/16 08:00 Glucose (Fingerstick) 135 mg/dL (70-99) 97 mg/dL (70-99) 116 mg/dL (70-99) O2 Saturation 97 % (92-99) Arterial Blood pH 7.43 (7.35-7.45) Arterial Blood pCO2 at Patient Temp 36 mmHg (35-46) Arterial Blood pO2 at Patient Temp 96 mmHg (75-108) Arterial Blood HCO3 24 mmol/L (21-28) Arterial Blood Base Excess -1 mmol/L (-3-3) FiO2 30 Test 12/18/16 12:18 12/18/16 17:58 12/19/16 00:21 12/19/16 05:55 Glucose (Fingerstick) 153 mg/dL (70-99) 147 mg/dL (70-99) 105 mg/dL (70-99) 116 mg/dL (70-99) Test 12/19/16 08:00 12/19/16 08:30 12/19/16 11:54 O2 Saturation 95 % (92-99) Arterial Blood pH 7.43 (7.35-7.45) Arterial Blood pCO2 at Patient Temp 36 mmHg (35-46) Arterial Blood pO2 at Patient Temp 85 mmHg (75-108) Arterial Blood HCO3 24 mmol/L (21-28) Arterial Blood Base Excess -1 mmol/L (-3-3) FiO2 30% White Blood Count 3.2 x10^3/uL (4.0-11.0) Red Blood Count 2.08 x10^6/uL (3.50-5.40) Hemoglobin 6.3 g/dL (12.0-15.5) Hematocrit 19.0 % (36.0-47.0) Mean Corpuscular Volume 91 fL (79-100) Mean Corpuscular Hemoglobin 31 pg (25-35) Mean Corpuscular Hemoglobin Concent 33 g/dL (31-37) Red Cell Distribution Width 16.3 % (11.5-14.5) Platelet Count 63 x10^3/uL (140-400) Neutrophils (%) (Auto) 78 % (31-73) Lymphocytes (%) (Auto) 15 % (24-48) Monocytes (%) (Auto) 7 % (0-9) Eosinophils (%) (Auto) 1 % (0-3) Basophils (%) (Auto) 1 % (0-3) Neutrophils # (Auto) 2.4 x10^3uL (1.8-7.7) Lymphocytes # (Auto) 0.5 x10^3/uL (1.0-4.8) Monocytes # (Auto) 0.2 x10^3/uL (0.0-1.1) Eosinophils # (Auto) 0.0 x10^3/uL (0.0-0.7) Basophils # (Auto) 0.0 x10^3/uL (0.0-0.2) Sodium Level 148 mmol/L (136-145) Potassium Level 3.0 mmol/L (3.5-5.1) Chloride Level 112 mmol/L (98-107) Carbon Dioxide Level 28 mmol/L (21-32) Anion Gap 8 (6-14) Blood Urea Nitrogen 48 mg/dL (7-20) Creatinine 1.1 mg/dL (0.6-1.0) Estimated GFR (Cockcroft-Gault) 62.4 Glucose Level 124 mg/dL (70-99) Calcium Level 7.9 mg/dL (8.5-10.1) Glucose (Fingerstick) 167 mg/dL (70-99) Laboratory Tests Test 12/18/16 12:18 12/18/16 17:58 12/19/16 00:21 12/19/16 05:55 Glucose (Fingerstick) 153 mg/dL (70-99) 147 mg/dL (70-99) 105 mg/dL (70-99) 116 mg/dL (70-99) Test 12/19/16 08:00 12/19/16 08:30 12/19/16 11:54 O2 Saturation 95 % (92-99) Arterial Blood pH 7.43 (7.35-7.45) Arterial Blood pCO2 at Patient Temp 36 mmHg (35-46) Arterial Blood pO2 at Patient Temp 85 mmHg (75-108) Arterial Blood HCO3 24 mmol/L (21-28) Arterial Blood Base Excess -1 mmol/L (-3-3) FiO2 30% White Blood Count 3.2 x10^3/uL (4.0-11.0) Red Blood Count 2.08 x10^6/uL (3.50-5.40) Hemoglobin 6.3 g/dL (12.0-15.5) Hematocrit 19.0 % (36.0-47.0) Mean Corpuscular Volume 91 fL (79-100) Mean Corpuscular Hemoglobin 31 pg (25-35) Mean Corpuscular Hemoglobin Concent 33 g/dL (31-37) Red Cell Distribution Width 16.3 % (11.5-14.5) Platelet Count 63 x10^3/uL (140-400) Neutrophils (%) (Auto) 78 % (31-73) Lymphocytes (%) (Auto) 15 % (24-48) Monocytes (%) (Auto) 7 % (0-9) Eosinophils (%) (Auto) 1 % (0-3) Basophils (%) (Auto) 1 % (0-3) Neutrophils # (Auto) 2.4 x10^3uL (1.8-7.7) Lymphocytes # (Auto) 0.5 x10^3/uL (1.0-4.8) Monocytes # (Auto) 0.2 x10^3/uL (0.0-1.1) Eosinophils # (Auto) 0.0 x10^3/uL (0.0-0.7) Basophils # (Auto) 0.0 x10^3/uL (0.0-0.2) Sodium Level 148 mmol/L (136-145) Potassium Level 3.0 mmol/L (3.5-5.1) Chloride Level 112 mmol/L (98-107) Carbon Dioxide Level 28 mmol/L (21-32) Anion Gap 8 (6-14) Blood Urea Nitrogen 48 mg/dL (7-20) Creatinine 1.1 mg/dL (0.6-1.0) Estimated GFR (Cockcroft-Gault) 62.4 Glucose Level 124 mg/dL (70-99) Calcium Level 7.9 mg/dL (8.5-10.1) Glucose (Fingerstick) 167 mg/dL (70-99) Microbiology 12/14/16 Blood Culture - Final, Complete NO GROWTH AFTER 5 DAYS 12/09/16 Stool Culture - Final, Complete 12/09/16 Stool Culture Result 1 (LUCINA) - Final, Complete 12/09/16 Campylobacter Antigen Assay - Final, Complete 12/09/16 Campylobactor Result 1 - Final, Complete 12/09/16 Shiga Toxin Test - Final, Complete 12/17/16 Gram Stain - Final, Complete 12/06/16 Urine Culture - Final, Complete 12/06/16 Urine Culture Result 1 (LUCINA) - Final, Complete 12/17/16 Gram Stain - Final, Complete Medications Current Medications Sodium Chloride 1,000 ml @ 1,000 mls/hr 1X ONCE IV Last administered on 16:18; Start 12/06/16 at 16:15; Stop 12/06/16 at 17:14; Status DC Vancomycin HCl (Vanco Per Pharmacy) 1 each PRN DAILY PRN MC SEE COMMENTS Last administered on 12/15/16 15:18; Start 12/06/16 at 17:00; Stop 12/16/16 at 09:58 ; Status DC Levofloxacin/ Dextrose 150 ml @ 100 mls/hr 1X ONCE IV Last administered on 20:04; Start 12/06/16 at 17:00; Stop 12/06/16 at 18:29; Status DC Vancomycin HCl 2 gm/Sodium Chloride 500 ml @ 250 mls/hr 1X ONCE IV Last administered on 12/06/16 17:11; Start 12/06/16 at 17:00; Stop 12/06/16 at 18:59 ; Status DC Sodium Chloride 1,000 ml @ 1,000 mls/hr 1X ONCE IV Last administered on 17:09; Start 12/06/16 at 17:00; Stop 12/06/16 at 17:59; Status DC Meropenem 500 mg/ Sodium Chloride 50 ml @ 100 mls/hr Q8HRS IV Last administered on 12/10/16 07:30; Start 12/06/16 at 18:00; Stop 12/10/16 at 08:13 ; Status DC Dopamine HCl/ Dextrose 250 ml @ 16.414 mls/ hr 1X ONCE IV Last administered on 12/06/16 17:41; Start 12/06/16 at 17:15; Stop 12/07/16 at 08:28; Status DC Etomidate (Amidate) 20 mg 1X ONCE IV Last administered on 12/06/16 17:19; Start 12/06/16 at 17:15; Stop 12/06/16 at 17:17; Status DC Succinylcholine Chloride (Anectine) 100 mg 1X ONCE IV Last administered on 17:20; Start 12/06/16 at 17:15; Stop 12/06/16 at 17:17; Status DC Vancomycin HCl 1.25 gm/Sodium Chloride 250 ml @ 167 mls/hr Q24H IV Last administered on 12/07/16 18:39; Start 12/07/16 at 17:00; Stop 12/07/16 at 23:00 ; Status DC Vancomycin HCl 1 each 1X ONCE MC ; Start 12/07/16 at 16:30; Stop 12/07/16 at 16 :31; Status Cancel Midazolam HCl 100 ml @ As Directed STK-MED ONCE IV ; Start 12/06/16 at 17:36; Stop 12/06/16 at 17:37; Status DC Midazolam HCl (Versed) 5 mg STK-MED ONCE .ROUTE ; Start 12/06/16 at 17:37; Stop 12/06/16 at 17:38; Status DC Midazolam HCl (Versed) 5 mg PRN Q10MIN PRN IV SEDATION; Start 12/06/16 at 17:45 Hydrocortisone Sodium Succinate (Solu-CORTEF) 100 mg Q8HRS IV Last administered on 12/09/16 13:55; Start 12/06/16 at 18:30; Stop 12/09/16 at 16:21 ; Status DC Norepinephrine Bitartrate 16 mg/ Sodium Chloride 266 ml @ 0 mls/hr CONT PRN IV SEE I/O RECORD; Start 12/06/16 at 19:00; Status UNV Pantoprazole Sodium (Protonix Vial) 40 mg DAILYAC IVP Last administered on 12/15 08:40; Start 12/06/16 at 19:30; Stop 12/15/16 at 10:35; Status DC Acetaminophen (Tylenol) 325 mg PRN Q6HRS PRN PO MILD PAIN / TEMP; Start at 19:00 Hydralazine HCl (Apresoline) 10 mg PRN Q4HRS PRN IVP ELEVATED BP, SEE COMMENTS Last administered on 12/17/16 12:26; Start 12/06/16 at 19:00 Ondansetron HCl (Zofran) 4 mg PRN Q8HRS PRN IV NAUSEA/VOMITING; Start 12/06/16 at 19:00; Stop 12/12/16 at 08:31; Status DC Albuterol Sulfate (Ventolin Neb Soln) 2.5 mg PRN Q4HRS PRN NEB SHORTNESS OF BREATH Last administered on 12/16/16 00:43; Start 12/06/16 at 19:00 Norepinephrine Bitartrate 250 ml @ 1.875 mls/ hr CONT PRN IV SEE I/O RECORD Last administered on 12/06/16 19:55; Start 12/06/16 at 19:00; Stop 12/15/16 at 10:33; Status DC Sodium Chloride 1,000 ml @ 1,000 mls/hr 1X ONCE IV Last administered on 19:56; Start 12/06/16 at 19:15; Stop 12/06/16 at 20:14; Status DC Sodium Chloride 1,000 ml @ 75 mls/hr [id number] IV Last administered on 21:55; Start 12/06/16 at 19:15; Stop 12/09/16 at 18:44; Status DC Pneumococcal Polyvalent Vaccine (Do NOT chart on this placeholder) 1 each PRN DAILY PRN MC PT UNABLE TO RESPOND; Start 12/07/16 at 09:30; Status Cancel Pneumococcal Polyvalent Vaccine (Pneumovax 23) 0.5 ml ONCE ONCE VAX IM ; Start 12/08/16 at 09:00; Stop 12/08/16 at 09:01; Status DC Albuterol/ Ipratropium (Duoneb) 3 ml RTQID NEB Last administered on 12/19/16 11:22; Start 12/07/16 at 12:00 Midazolam HCl 100 ml @ 0 mls/hr CONT PRN IV SEE I/O RECORD Last administered on 12/07/16 10:29; Start 12/07/16 at 10:15; Stop 12/13/16 at 20:41; Status DC Fentanyl Citrate (Fentanyl 2ml Vial) 25 mcg PRN Q1HR PRN IV PAIN Last administered on 12/17/16 14:44; Start 12/07/16 at 10:45 Pantoprazole Sodium (Protonix Vial) 40 mg DAILYAC IVP ; Start 12/07/16 at 17:00 ; Status Cancel Vancomycin HCl 1.25 gm/Sodium Chloride 250 ml @ 167 mls/hr Q12H IV Last administered on 12/13/16 18:25; Start 12/08/16 at 06:00; Stop 12/13/16 at 18:54 ; Status DC Vancomycin HCl 1 each 1X ONCE MC ; Start 12/08/16 at 17:30; Stop 12/08/16 at 17 :31; Status DC Vancomycin HCl 1 gm/Sodium Chloride 250 ml @ 250 mls/hr Q12H IV ; Start at 18:00; Status Cancel Chlorhexidine Gluconate (Peridex) 15 ml BID SWSP ; Start 12/09/16 at 21:00; Stop 12/10/16 at 07:23; Status DC Hydrocortisone Sodium Succinate (Solu-CORTEF) 100 mg Q12HR IV Last administered on 12/14/16 08:53; Start 12/09/16 at 21:00; Stop 12/14/16 at 16:52 ; Status DC Amino Acids/ Glycerin/ Electrolytes 1,000 ml @ 40 mls/hr Q24H IV Last administered on 12/09/16 17:56; Start 12/09/16 at 17:00; Stop 12/10/16 at 14:16 ; Status DC Alprazolam (Xanax) 0.25 mg DAILY PO Last administered on 12/19/16 08:16; Start 12/10/16 at 09:00 Bupropion HCl (Wellbutrin) 100 mg BID PO Last administered on 12/19/16 08:14; Start 12/09/16 at 21:00 Gabapentin (Neurontin) 300 mg BID PO ; Start 12/09/16 at 21:00; Status Cancel Ropinirole HCl (Requip) 0.25 mg QHS PO Last administered on 12/18/16 21:24; Start 12/09/16 at 21:00 Pregabalin (Lyrica) 150 mg DAILY PO Last administered on 12/19/16 08:16; Start 12/10/16 at 09:00 Epinephrine (S2 Racepinephrine) 0.5 ml 1X ONCE NEB Last administered on 07:45; Start 12/10/16 at 07:45; Stop 12/10/16 at 07:46; Status DC Lorazepam (Ativan) 2 mg 1X ONCE IV Last administered on 12/10/16 08:33; Start 12/10/16 at 08:00; Stop 12/10/16 at 08:01; Status DC Succinylcholine Chloride (Anectine) 200 mg STK-MED ONCE .ROUTE ; Start 12/10/16 at 10:28; Stop 12/10/16 at 10:29; Status DC Propofol 100 ml @ As Directed STK-MED ONCE IV ; Start 12/10/16 at 10:28; Stop 12/10/16 at 10:29; Status DC Calcium Gluconate (Calcium Gluconate) 1,000 mg 1X ONCE IVP Last administered on 12/10/16 11:41; Start 12/10/16 at 11:30; Stop 12/10/16 at 11:31; Status DC Succinylcholine Chloride (Anectine) 200 mg 1X ONCE IV Last administered on 11:41; Start 12/10/16 at 11:30; Stop 12/10/16 at 11:31; Status DC Propofol 100 ml @ 0 mls/hr CONT PRN IV SEE I/O RECORD Last administered on 12/13 00:57; Start 12/10/16 at 11:30; Stop 12/13/16 at 20:41; Status DC Insulin Aspart (NovoLOG) 0-5 UNITS TIDWMEALS SQ ; Start 12/11/16 at 08:00; Stop 12/11/16 at 08:00; Status DC Dextrose (Dextrose 50%-Water Syringe) 12.5 gm PRN Q15MIN PRN IV SEE COMMENTS; Start 12/10/16 at 20:30 Insulin Aspart (NovoLOG) 0-5 UNITS Q6HRS SQ Last administered on 12/19/16 11: 57; Start 12/11/16 at 00:00 Chlorhexidine Gluconate (Peridex) 15 ml BID MM Last administered on 12/13/16 09:46; Start 12/11/16 at 21:00; Stop 12/13/16 at 20:41; Status DC Fentanyl Citrate (Fentanyl 2ml Vial) 25 mcg PRN Q5MIN PRN IV MILD PAIN; Start 12/12/16 at 07:00; Stop 12/13/16 at 06:59; Status DC Fentanyl Citrate (Fentanyl 2ml Vial) 50 mcg PRN Q5MIN PRN IV MODERATE PAIN; Start 12/12/16 at 07:00; Stop 12/13/16 at 06:59; Status DC Morphine Sulfate 1 mg PRN Q10MIN PRN IV SEVERE PAIN; Start 12/12/16 at 07:00; Stop 12/13/16 at 06:59; Status DC Ringer's Solution 1,000 ml @ 30 mls/hr Q24H IV ; Start 12/12/16 at 07:00; Stop 12/12/16 at 18:59; Status DC Lidocaine HCl 2 ml PRN 1X PRN ID PRIOR TO IV START; Start 12/12/16 at 07:00; Stop 12/13/16 at 06:59; Status DC Hydromorphone HCl (Dilaudid) 0.5 mg PRN Q10MIN PRN IV SEV PAIN, Second choice; Start 12/12/16 at 07:00; Stop 12/13/16 at 06:59; Status DC Prochlorperazine Edisylate (Compazine) 5 mg PACU PRN PRN IV NAUSEA, MRX1; Start 12/12/16 at 07:00; Stop 12/13/16 at 06:59; Status DC Lidocaine HCl (Lidocaine Pf 2% Vial) 5 ml STK-MED ONCE .ROUTE ; Start 12/12/16 at 08:15; Stop 12/12/16 at 08:16; Status DC Propofol 0 ml @ As Directed STK-MED ONCE IV ; Start 12/12/16 at 08:15; Stop at 08:16; Status DC Ondansetron HCl (Zofran) 4 mg PRN Q6HRS PRN IV NAUSEA/VOMITING Last administered on 12/14/16 01:41; Start 12/12/16 at 19:00 Acetaminophen (Tylenol) 650 mg PRN Q6HRS PRN PEG MILD PAIN / TEMP Last administered on 12/15/16 17:25; Start 12/12/16 at 08:30 Vancomycin HCl 1 each 1X ONCE MC Last administered on 12/13/16 10:00; Start 12/13/16 at 10:00; Stop 12/13/16 at 10:01; Status DC Furosemide (Lasix) 40 mg 1X ONCE IVP Last administered on 12/13/16 11:31; Start 12/13/16 at 11:15; Stop 12/13/16 at 11:16; Status DC Amino Acids/ Glycerin/ Electrolytes 1,000 ml @ 75 mls/hr [id number] IV Last administered on 12/15/16 04:25; Start 12/13/16 at 21:00; Stop 12/15/16 at 10:33 ; Status DC Vancomycin HCl 1 each 1X ONCE MC Last administered on 12/14/16 09:00; Start 12/14/16 at 09:00; Stop 12/14/16 at 09:01; Status DC Vancomycin HCl 1 each 1X ONCE MC ; Start 12/15/16 at 06:00; Stop 12/15/16 at 06 :01; Status Cancel Vancomycin HCl 1 each 1X ONCE MC Last administered on 12/15/16 06:00; Start 12/15/16 at 06:00; Stop 12/15/16 at 06:01; Status DC Alteplase, Recombinant (Cathflo) 2 mg 1X ONCE INT CAT Last administered on 14:58; Start 12/14/16 at 14:30; Stop 12/14/16 at 14:34; Status DC Hydrocortisone Sodium Succinate (Solu-CORTEF) 100 mg DAILY IV Last administered on 12/19/16 08:17; Start 12/15/16 at 09:00; Stop 12/19/16 at 10:04 ; Status DC Haloperidol Lactate (Haldol) 2.5 mg PRN Q4HRS PRN IVP AGITATION Last administered on 12/15/16 20:35; Start 12/15/16 at 06:45 Lansoprazole (Prevacid) 30 mg DAILYAC FT ; Start 12/16/16 at 07:30; Stop at 10:00; Status DC Vancomycin HCl 1 gm/Sodium Chloride 250 ml @ 250 mls/hr Q48H IV ; Start at 21:00; Status Cancel Morphine Sulfate 2 mg PRN Q2HR PRN IV SEVERE PAIN Last administered on 01:19; Start 12/15/16 at 21:15 Zolpidem Tartrate (Ambien) 5 mg PRN QHS PRN PO INSOMNIA Last administered on 00:17; Start 12/16/16 at 00:00 Propofol 100 ml @ As Directed STK-MED ONCE IV ; Start 12/16/16 at 02:34; Stop 12/16/16 at 02:35; Status DC Succinylcholine Chloride (Anectine) 200 mg STK-MED ONCE .ROUTE ; Start 12/16/16 at 02:57; Stop 12/16/16 at 02:58; Status DC Succinylcholine Chloride (Anectine) 200 mg STK-MED ONCE .ROUTE ; Start 12/16/16 at 02:57; Stop 12/16/16 at 02:58; Status DC Etomidate (Amidate) 20 mg STK-MED ONCE IV ; Start 12/16/16 at 02:58; Stop at 02:59; Status DC Propofol 100 ml @ 0 mls/hr CONT PRN IV SEE I/O RECORD; Start 12/16/16 at 04:15 ; Stop 12/16/16 at 08:04; Status DC Chlorhexidine Gluconate (Peridex) 15 ml BID MM Last administered on 12/19/16 08:18; Start 12/16/16 at 09:00 Propofol (Diprivan) 1,000 mg STK-MED ONCE IV ; Start 12/16/16 at 03:00; Stop at 07:11; Status DC Furosemide (Lasix) 40 mg DAILY IVP Last administered on 12/19/16 08:16; Start 12/16/16 at 09:00 Ceftaroline Fosamil 600 mg/ Sodium Chloride 250 ml @ 250 mls/hr Q8HRS IV Last administered on 12/19/16 05:52; Start 12/16/16 at 10:00 Famotidine (Pepcid) 20 mg BID IVP Last administered on 12/19/16 08:17; Start 12/16/16 at 10:30 Propofol 100 ml @ 0 mls/hr CONT PRN IV PER PROTOCOL Last administered on 08:18; Start 12/16/16 at 06:45 Fentanyl Citrate (Fentanyl 2ml Vial) 25 mcg PRN Q5MIN PRN IV MILD PAIN; Start 12/16/16 at 12:45; Stop 12/17/16 at 12:44; Status DC Fentanyl Citrate (Fentanyl 2ml Vial) 50 mcg PRN Q5MIN PRN IV MODERATE PAIN; Start 12/16/16 at 12:45; Stop 12/17/16 at 12:44; Status DC Morphine Sulfate 1 mg PRN Q10MIN PRN IV SEVERE PAIN; Start 12/16/16 at 12:45; Stop 12/17/16 at 12:44; Status DC Ringer's Solution 1,000 ml @ 30 mls/hr Q24H IV ; Start 12/16/16 at 12:32; Stop 12/17/16 at 00:31; Status DC Lidocaine HCl 2 ml PRN 1X PRN ID PRIOR TO IV START; Start 12/16/16 at 12:45; Stop 12/17/16 at 12:44; Status DC Hydromorphone HCl (Dilaudid) 0.5 mg PRN Q10MIN PRN IV SEV PAIN, Second choice; Start 12/16/16 at 12:45; Stop 12/17/16 at 12:44; Status DC Prochlorperazine Edisylate (Compazine) 5 mg PACU PRN PRN IV NAUSEA, MRX1; Start 12/16/16 at 12:45; Stop 12/17/16 at 12:44; Status DC Dextrose/Sodium Chloride 1,000 ml @ 50 mls/hr Q20H IV ; Start 12/16/16 at 13:00 ; Stop 12/16/16 at 13:38; Status DC Potassium Chloride (KCl Oral Soln) 20 meq 1X ONCE PEG Last administered on 11:28; Start 12/17/16 at 11:00; Stop 12/17/16 at 11:01; Status DC Lidocaine/Sodium Bicarbonate (Buffered Lidocaine 1%) 20 ml STK-MED ONCE IJ ; Start 12/17/16 at 14:48; Stop 12/17/16 at 14:49; Status DC Heparin Sodium/ Sodium Chloride 500 ml @ As Directed STK-MED ONCE .ROUTE ; Start 12/17/16 at 14:48; Stop 12/17/16 at 14:49; Status DC Lidocaine/Sodium Bicarbonate (Buffered Lidocaine 1%) 3 ml 1X ONCE IJ Last administered on 12/17/16 16:01; Start 12/17/16 at 15:15; Stop 12/17/16 at 15:16 ; Status DC Heparin Sodium/ Sodium Chloride 60 unit 1X ONCE IV Last administered on 16:02; Start 12/17/16 at 15:15; Stop 12/17/16 at 15:16; Status DC Lidocaine/ Epinephrine (Xylocaine 1%-Epi 1:100,000) 10 ml 1X ONCE INJ Last administered on 12/17/16 16:01; Start 12/17/16 at 15:15; Stop 12/17/16 at 15:16 ; Status DC Gelatin (Gelfoam Size 12-7mm) 1 each STK-MED ONCE .ROUTE ; Start 12/17/16 at 15 :01; Stop 12/17/16 at 15:02; Status DC Iohexol (Omnipaque 300 Mg/ml) 75 ml 1X ONCE IV ; Start 12/18/16 at 14:00; Stop 12/18/16 at 14:01; Status DC Info (Do NOT chart on this entry -- for MONITORING) 1 each PRN DAILY PRN MC SEE COMMENTS; Start 12/18/16 at 14:00; Stop 12/20/16 at 13:59 Potassium Chloride (Klor-Con) 40 meq Q2H PO Last administered on 12/19/16 10: 47; Start 12/19/16 at 10:00; Stop 12/19/16 at 12:01; Status DC Hydrocortisone Sodium Succinate (Solu-CORTEF) 50 mg DAILY IV ; Start 12/20/16 at 09:00 Potassium Chloride 20 meq/ Sodium Chloride 510 ml @ 500 mls/hr 1X ONCE IV Last administered on 12/19/16 11:42; Start 12/19/16 at 11:00; Stop 12/19/16 at 12:01; Status DC Active Scripts Active Ambien (Zolpidem Tartrate) 5 Mg Tablet 5 Mg PO PRN QHS PRN Hydrocodone-Apap 7.5-325/15 Soln (Hydrocodone Bit/Acetaminophen) 15 Ml Solution 15 Ml PO PRN Q6HRS PRN Morphine Sulfate 2 Mg/1 Ml Cartridge 2 Mg IV PRN Q2HR PRN Oxycodone Hcl 5 Mg Tablet 5 Mg PO PRN Q6HRS PRN Reported Albuterol Sulfate Neb Soln (Albuterol Sulfate) 1.25 Mg/3 Ml Vial.neb 1 Vial NEB Q6HRS Ranitidine Hcl 150 Mg Capsule 75 Mg PO DAILY Ondansetron Hcl 8 Mg Tablet 8 Mg PO DAILY Azithromycin Tablet (Azithromycin) 250 Mg Tablet 250 Mg PO DAILY Bupropion Hcl 100 Mg Tablet 100 Mg PO BID Nasal Allergy [place] (Cromolyn Sodium) 13 Ml [place].pump 13 Ml NS DAILY Gabapentin 300 Mg Capsule 300 Mg PO BID Hydroxyzine Hcl 25 Mg Tablet 25 Mg PO DAILY Nystatin 15 Gm Cream..g. 15 Gm TP BID Duloxetine Hcl 60 Mg Capsule.dr 60 Mg PO DAILY Clonidine Hcl 0.1 Mg Tablet 0.1 Mg PO DAILY Lisinopril 20 Mg Tablet 20 Mg PO DAILY Famciclovir 125 Mg Tablet 125 Mg PO DAILY Ropinirole Hcl 0.25 Mg Tablet 0.25 Mg PO DAILY Hydroxychloroquine Sulfate 200 Mg Tablet 200 Mg PO DAILY Lyrica (Pregabalin) 150 Mg Capsule 150 Mg PO DAILY Furosemide 20 Mg Tablet 20 Mg PO DAILY Alprazolam 0.25 Mg Tablet 0.25 Mg PO Oxycodone Hcl 5 Mg Tablet 5 Mg PO PRN Q4HRS PRN Ibuprofen 400 Mg Tablet 400 Mg PO PRN DAILY PRN Multivitamins (Multivitamin) 1 Each Tablet 1 Each PO DAILY Oxycodone-Acetaminophen 10-325 (Oxycodone Hcl/Acetaminophen) 1 Each Tablet 1 Each PO PRN Q4-6HRS PRN Plaquenil (Hydroxychloroquine Sulfate) 200 Mg Tablet 200 Mg PO BID Vitals/I & O Vital Sign - Last 24 Hours 12/18/16 12/18/16 12/18/16 12/18/16 12:50 13:00 14:00 15:00 Pulse 86 84 79 Resp 14 14 11 B/P (MAP) 119/58 (78) 106/53 (70) 119/65 (83) Pulse Ox 96 94 94 96 O2 Delivery Ventilator Ventilator Ventilator Ventilator 12/18/16 12/18/16 12/18/16 12/18/16 15:40 16:00 16:00 17:00 Pulse 77 82 Resp 14 16 B/P (MAP) 112/55 (74) 112/58 (76) Pulse Ox 96 94 93 O2 Delivery Ventilator Mechanical Ventilator Ventilator Ventilator 12/18/16 12/18/16 12/18/16 12/18/16 17:09 18:00 19:00 19:50 Temp 98.2 98.2 Pulse 75 74 Resp 12 16 B/P (MAP) 112/57 (75) 112/56 (74) Pulse Ox 95 94 94 94 O2 Delivery Ventilator Ventilator Ventilator Ventilator 12/18/16 12/18/16 12/18/16 12/18/16 20:00 20:00 21:00 22:00 Temp 97.9 97.9 Pulse 74 74 74 Resp 16 16 22 B/P (MAP) 108/53 (71) 102/58 (73) 100/48 (65) Pulse Ox 93 94 94 O2 Delivery Mechanical Ventilator Ventilator Ventilator Ventilator 12/18/16 12/18/16 12/19/16 12/19/16 22:51 23:00 00:00 00:00 Temp 98.0 98.0 Pulse 72 72 Resp 16 16 B/P (MAP) 101/46 (64) 101/48 (65) Pulse Ox 94 94 94 O2 Delivery Ventilator Ventilator Mechanical Ventilator Ventilator 12/19/16 12/19/16 12/19/16 12/19/16 00:20 01:00 02:00 02:39 Pulse 75 74 Resp 16 16 B/P (MAP) 100/52 (68) 103/51 (68) Pulse Ox 94 94 94 94 O2 Delivery Ventilator Ventilator Ventilator Ventilator 12/19/16 12/19/16 12/19/16 12/19/16 03:00 04:00 04:00 04:34 Temp 98.6 98.6 Pulse 74 77 Resp 16 16 B/P (MAP) 106/54 (71) 105/54 (71) Pulse Ox 94 94 94 O2 Delivery Ventilator Mechanical Ventilator Ventilator Ventilator 12/19/16 12/19/16 12/19/16 12/19/16 05:00 06:00 06:23 07:00 Pulse 80 74 82 Resp 18 28 27 B/P (MAP) 104/59 (74) 124/65 (84) 116/60 (78) Pulse Ox 95 98 95 96 O2 Delivery Ventilator Ventilator Ventilator Ventilator 12/19/16 12/19/16 12/19/16 12/19/16 07:18 07:33 08:00 08:00 Temp 98.5 98.5 Pulse 94 Resp 29 B/P (MAP) 107/67 (80) Pulse Ox 95 96 94 O2 Delivery Ventilator Ventilator Mechanical Ventilator 12/19/16 12/19/16 12/19/16 12/19/16 08:42 09:00 10:00 11:00 Pulse 79 83 75 Resp 24 20 17 B/P (MAP) 122/63 (82) 142/74 (96) 136/66 (89) Pulse Ox 93 94 95 98 O2 Delivery Ventilator Ventilator Ventilator Ventilator 12/19/16 11:23 Pulse Ox 95 O2 Delivery Ventilator Intake and Output 12/18/16 12/18/16 12/19/16 15:00 23:00 07:00 Intake Total 420 ml 2094 ml 2056 ml Output Total 2065 ml 345 ml Balance 420 ml 29 ml 1711 ml Nutrition Consultation Dietary Evaluation: Recommendations by RD: Increase Calorie Intake, PPN/TPN Comments: Rec. continue TF's: Diabetisource AC, goal rate 45 ml/hr flushes 200 cc q4h add 1 packet of prostat/morning Expected Outcomes/Goals: tolerate the TF's at goal rate- met meet 75% estimated nutrition needs- met Malnutrition Findings: Reduced Mastic Floor Layer Strength: N/A Reduced Mastic Floor Layer Strength (Non-Sev: N/A Malnutrition related to morbid: No Weight Status: Obese ELLE CLARK MD Dec 19, 2016 12:17
--- NOTE | 2016-12-19 13:17 | PDOC ---
MIKO LORENZO PETROGRAPHY TEACHER 12/19/16 1317: SURGICAL PROGRESS NOTE Subjective intubated, awake Vital Signs Vital Signs Date Time Temp Pulse Resp B/P (MAP) Pulse Ox O2 Delivery O2 Flow Rate FiO2 12/19/16 13:01 98.7 85 21 134/66 98.7 12/19/16 12:19 96 Ventilator I&O Intake and Output 12/19/16 07:00 Intake Total 4570 ml Output Total 2410 ml Balance 2160 ml IV Total 1396 ml Tube Feeding 2484 ml Other 690 ml Output Urine Total 2410 ml General: Alert, No acute distress HEENT: Other (vent) Abdomen: Soft, No tenderness Labs Laboratory Tests Test 12/17/16 18:28 12/17/16 23:52 12/18/16 05:28 12/18/16 08:00 Glucose (Fingerstick) 135 mg/dL (70-99) 97 mg/dL (70-99) 116 mg/dL (70-99) O2 Saturation 97 % (92-99) Arterial Blood pH 7.43 (7.35-7.45) Arterial Blood pCO2 at Patient Temp 36 mmHg (35-46) Arterial Blood pO2 at Patient Temp 96 mmHg (75-108) Arterial Blood HCO3 24 mmol/L (21-28) Arterial Blood Base Excess -1 mmol/L (-3-3) FiO2 30 Test 12/18/16 12:18 12/18/16 17:58 12/19/16 00:21 12/19/16 05:55 Glucose (Fingerstick) 153 mg/dL (70-99) 147 mg/dL (70-99) 105 mg/dL (70-99) 116 mg/dL (70-99) Test 12/19/16 08:00 12/19/16 08:30 12/19/16 11:54 O2 Saturation 95 % (92-99) Arterial Blood pH 7.43 (7.35-7.45) Arterial Blood pCO2 at Patient Temp 36 mmHg (35-46) Arterial Blood pO2 at Patient Temp 85 mmHg (75-108) Arterial Blood HCO3 24 mmol/L (21-28) Arterial Blood Base Excess -1 mmol/L (-3-3) FiO2 30% White Blood Count 3.2 x10^3/uL (4.0-11.0) Red Blood Count 2.08 x10^6/uL (3.50-5.40) Hemoglobin 6.3 g/dL (12.0-15.5) Hematocrit 19.0 % (36.0-47.0) Mean Corpuscular Volume 91 fL (79-100) Mean Corpuscular Hemoglobin 31 pg (25-35) Mean Corpuscular Hemoglobin Concent 33 g/dL (31-37) Red Cell Distribution Width 16.3 % (11.5-14.5) Platelet Count 63 x10^3/uL (140-400) Neutrophils (%) (Auto) 78 % (31-73) Lymphocytes (%) (Auto) 15 % (24-48) Monocytes (%) (Auto) 7 % (0-9) Eosinophils (%) (Auto) 1 % (0-3) Basophils (%) (Auto) 1 % (0-3) Neutrophils # (Auto) 2.4 x10^3uL (1.8-7.7) Lymphocytes # (Auto) 0.5 x10^3/uL (1.0-4.8) Monocytes # (Auto) 0.2 x10^3/uL (0.0-1.1) Eosinophils # (Auto) 0.0 x10^3/uL (0.0-0.7) Basophils # (Auto) 0.0 x10^3/uL (0.0-0.2) Sodium Level 148 mmol/L (136-145) Potassium Level 3.0 mmol/L (3.5-5.1) Chloride Level 112 mmol/L (98-107) Carbon Dioxide Level 28 mmol/L (21-32) Anion Gap 8 (6-14) Blood Urea Nitrogen 48 mg/dL (7-20) Creatinine 1.1 mg/dL (0.6-1.0) Estimated GFR (Cockcroft-Gault) 62.4 Glucose Level 124 mg/dL (70-99) Calcium Level 7.9 mg/dL (8.5-10.1) Glucose (Fingerstick) 167 mg/dL (70-99) Laboratory Tests Test 12/18/16 17:58 12/19/16 00:21 12/19/16 05:55 12/19/16 08:00 Glucose (Fingerstick) 147 mg/dL (70-99) 105 mg/dL (70-99) 116 mg/dL (70-99) O2 Saturation 95 % (92-99) Arterial Blood pH 7.43 (7.35-7.45) Arterial Blood pCO2 at Patient Temp 36 mmHg (35-46) Arterial Blood pO2 at Patient Temp 85 mmHg (75-108) Arterial Blood HCO3 24 mmol/L (21-28) Arterial Blood Base Excess -1 mmol/L (-3-3) FiO2 30% Test 12/19/16 08:30 12/19/16 11:54 White Blood Count 3.2 x10^3/uL (4.0-11.0) Red Blood Count 2.08 x10^6/uL (3.50-5.40) Hemoglobin 6.3 g/dL (12.0-15.5) Hematocrit 19.0 % (36.0-47.0) Mean Corpuscular Volume 91 fL (79-100) Mean Corpuscular Hemoglobin 31 pg (25-35) Mean Corpuscular Hemoglobin Concent 33 g/dL (31-37) Red Cell Distribution Width 16.3 % (11.5-14.5) Platelet Count 63 x10^3/uL (140-400) Neutrophils (%) (Auto) 78 % (31-73) Lymphocytes (%) (Auto) 15 % (24-48) Monocytes (%) (Auto) 7 % (0-9) Eosinophils (%) (Auto) 1 % (0-3) Basophils (%) (Auto) 1 % (0-3) Neutrophils # (Auto) 2.4 x10^3uL (1.8-7.7) Lymphocytes # (Auto) 0.5 x10^3/uL (1.0-4.8) Monocytes # (Auto) 0.2 x10^3/uL (0.0-1.1) Eosinophils # (Auto) 0.0 x10^3/uL (0.0-0.7) Basophils # (Auto) 0.0 x10^3/uL (0.0-0.2) Sodium Level 148 mmol/L (136-145) Potassium Level 3.0 mmol/L (3.5-5.1) Chloride Level 112 mmol/L (98-107) Carbon Dioxide Level 28 mmol/L (21-32) Anion Gap 8 (6-14) Blood Urea Nitrogen 48 mg/dL (7-20) Creatinine 1.1 mg/dL (0.6-1.0) Estimated GFR (Cockcroft-Gault) 62.4 Glucose Level 124 mg/dL (70-99) Calcium Level 7.9 mg/dL (8.5-10.1) Glucose (Fingerstick) 167 mg/dL (70-99) Problem List Problems Medical Problems: (1) Respiratory failure Status: Acute Assessment/Plan vent, plans for [facility]--may need trach though prior or once at [facility] Matos assisted IR with port cath removal receiving blood today will follow Problems: JIM MATOS MD 12/19/16 1546: SURGICAL PROGRESS NOTE Assessment/Plan as above d/w Dr Canas he will adress the trach need Problems: MIKO LORENZO APRN Dec 19, 2016 13:17 JIM MATOS MD Dec 19, 2016 15:46
[2016-12-19] MEDS: fentaNYL PF VIAL 100 MCG/2 ML VIAL IV PRN (16:02)
[2016-12-19] MEDS: rOPINIRole 0.25 MG TABLET. PO SCH (21:34)
[2016-12-19] MEDS: NYSTATIN TOPICAL POWDER 15GM BOTTLE. TP SCH (21:36)
[2016-12-20] VITALS (24 sets, daily range): BP systolic 120–181; BP diastolic 60–97
[2016-12-20] MEDS ORDERED: IV NORMAL SALINE 1000ML BAG 1,000 ML IV ONE (00:15)
[2016-12-20] MEDS: PROPOFOL 100 ML IV PRN ×2 (01:49→21:08)
[2016-12-20] MEDS: INSULIN ASPART 300 UNITS/3 ML INSULN.PEN SQ SCH ×4 (06:00→18:00)
[2016-12-20] MEDS: CEFTAROLINE FOSAMIL 600 MG in IV NORMAL SALINE 250ML 250 ML IV SCH ×3 (06:18→21:10)
[2016-12-20 06:42] LABS: BASO % 0 % (0-3); EOS % 1 % (0-3); HEMATOCRIT 23.6 % (36.0-47.0); HEMOGLOBIN 8.1 g/dL (12.0-15.5); LYMPH # 0.6 x10^3/uL (1.0-4.8); LYMPH % 16 % (24-48); MEAN CORPUSCULAR HEMOGLOBIN 30 pg (25-35); MEAN CORPUSCULAR HGB CONC 34 g/dL (31-37); MEAN CORPUSCULAR VOLUME 89 fL (79-100); MONO % 6 % (0-9); NEUT % 77 % (31-73); PLATELET COUNT 79 x10^3/uL (140-400); RED BLOOD COUNT 2.65 x10^6/uL (3.50-5.40); RED CELL DISTRIBUTION WIDTH 15.8 % (11.5-14.5); WHITE BLOOD COUNT 3.7 x10^3/uL (4.0-11.0)
[2016-12-20 07:01] LABS: ALBUMIN 1.6 g/dL (3.4-5.0); ALBUMIN/GLOBULIN RATIO 0.4 (1.0-1.7); CALCIUM 8.1 mg/dL (8.5-10.1); GFR 69.7; POTASSIUM 3.6 mmol/L (3.5-5.1); TOTAL BILIRUBIN 0.5 mg/dL (0.2-1.0); TOTAL PROTEIN 5.7 g/dL (6.4-8.2)
[2016-12-20] MEDS: buPROPion 100 MG TABLET PO SCH ×2 (08:14→21:10)
[2016-12-20] MEDS: ALPRAZolam 0.25 MG TABLET PO SCH (08:14)
[2016-12-20] MEDS: PREGABALIN 75 MG CAPSULE PO SCH ×3 (08:14→21:10)
[2016-12-20] MEDS: FUROSEMIDE 40 MG/4 ML VIAL. IVP SCH (08:15)
[2016-12-20] MEDS: FAMOTIDINE 20 MG/2 ML VIAL IVP SCH ×2 (08:15→21:10)
[2016-12-20] MEDS: HYDROCORTISONE SOD SUCC/PF 100 MG/2 ML VIAL. IV SCH (08:15)
[2016-12-20] MEDS: CHLORHEXIDINE 0.12% 15 ML MOUTHWASH. MM SCH ×2 (08:16→21:11)
[2016-12-20] MEDS: NYSTATIN TOPICAL POWDER 15GM BOTTLE. TP SCH ×2 (08:16→21:11)
[2016-12-20] MEDS: IPRATRPIUM/ALBUTEROL 0.5/2.5MG 3 ML NEBU. NEB SCH ×4 (08:29→19:59)
--- NOTE | 2016-12-20 09:51 | PDOC ---
Infectious Disease Note Subjective Subjective Remains intubated. Tube feedings via OGT. Improved UO after Vaughan flushed per RN. No fever. Denies SOA, CP or upset stomach. c/o right-sided neck pain worse with movement. ROS ROS Vital Sign Vital Signs Vital Signs Date Time Temp Pulse Resp B/P (MAP) Pulse Ox O2 Delivery O2 Flow Rate FiO2 12/20/16 09:27 99 Ventilator 12/20/16 06:00 64 16 127/67 (87) 12/20/16 04:00 97.9 97.9 Physical Exam PHYSICAL EXAM GENERAL: Propped up in bed, on cell phone, calm, NAD HEENT: ETT. OGT NECK: No nuchal rigidity, supple LUNGS: Diminished aeration bases. HEART: S1S2, no gallop, no murmur ABD: Soft, NT : Vaughan EXT: BLE edema. 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 clean. (12/17) Port-out Labs Lab Laboratory Tests Test 12/19/16 11:54 12/19/16 17:40 12/20/16 00:25 12/20/16 06:27 Glucose (Fingerstick) 167 mg/dL (70-99) 122 mg/dL (70-99) 89 mg/dL (70-99) 114 mg/dL (70-99) Test 12/20/16 06:30 White Blood Count 3.7 x10^3/uL (4.0-11.0) Red Blood Count 2.65 x10^6/uL (3.50-5.40) Hemoglobin 8.1 g/dL (12.0-15.5) Hematocrit 23.6 % (36.0-47.0) Mean Corpuscular Volume 89 fL (79-100) Mean Corpuscular Hemoglobin 30 pg (25-35) Mean Corpuscular Hemoglobin Concent 34 g/dL (31-37) Red Cell Distribution Width 15.8 % (11.5-14.5) Platelet Count 79 x10^3/uL (140-400) Neutrophils (%) (Auto) 77 % (31-73) Lymphocytes (%) (Auto) 16 % (24-48) Monocytes (%) (Auto) 6 % (0-9) Eosinophils (%) (Auto) 1 % (0-3) Basophils (%) (Auto) 0 % (0-3) Neutrophils # (Auto) 2.8 x10^3uL (1.8-7.7) Lymphocytes # (Auto) 0.6 x10^3/uL (1.0-4.8) Monocytes # (Auto) 0.2 x10^3/uL (0.0-1.1) Eosinophils # (Auto) 0.0 x10^3/uL (0.0-0.7) Basophils # (Auto) 0.0 x10^3/uL (0.0-0.2) Sodium Level 146 mmol/L (136-145) Potassium Level 3.6 mmol/L (3.5-5.1) Chloride Level 112 mmol/L (98-107) Carbon Dioxide Level 28 mmol/L (21-32) Anion Gap 6 (6-14) Blood Urea Nitrogen 41 mg/dL (7-20) Creatinine 1.0 mg/dL (0.6-1.0) Estimated GFR (Cockcroft-Gault) 69.7 BUN/Creatinine Ratio 41 (6-20) Glucose Level 111 mg/dL (70-99) Calcium Level 8.1 mg/dL (8.5-10.1) Total Bilirubin 0.5 mg/dL (0.2-1.0) Aspartate Amino Transf (AST/SGOT) 21 U/L (15-37) Alanine Aminotransferase (ALT/SGPT) 18 U/L (14-59) Alkaline Phosphatase 59 U/L (46-116) Total Protein 5.7 g/dL (6.4-8.2) Albumin 1.6 g/dL (3.4-5.0) Albumin/Globulin Ratio 0.4 (1.0-1.7) Micro 12/17. SPUTUM CULT RES 1 Preliminary Staphylococcus aureus Objective Assessment Acute resp failure - reintubated. s/p bronch 12/16. staph aureus Infected port a cath with veg on port seen on CHARLI 12/16. s/p Removal 12/17 Sepsis. POA with MRSA bacteremia. 12/06 -TTE neg. CHARLI veg on port. Repeat BC 12/10 positive, 12/14 negative. MRSA pneumonia, POA Hypotension, now off pressors Pancytopenia/anemia - some better PCN allergy, reaction unknown Acute encephalopathy -sedated LEONARDO h/o breast cancer, s/p chemo. Port removed Lupus on Plaquenil Recent E. coli UTI MRSA nares, 11/25, 12/06 Diarrhea. C. diff. neg 12/06 Plan Plan of Care Given thrombocytopenia (avoid Zyvox and has bacteremia)/Acute resp failure ( Avoid Dapto no lung coverage) ? ant chest rash and ? Vanc kinetics - will cont Teflaro to cover lung and blood. Monitor WBC, Cr F/u cath cults Trach/PEG pending Critically ill Attending Co-Sign The patient was seen and interviewed as well as examined at the bedside. The chart was reviewed. The case was discussed. Agree with the plan of care. YOCASTA RODRÍGUEZ APRN Dec 20, 2016 09:51 AMANDA MARC MD Dec 20, 2016 13:57
--- NOTE | 2016-12-20 10:22 | PDOC ---
PROGRESS NOTES Chief Complaint Chief Complaint AMS Sepsis ASSESSMENT AND PLAN: 1. Septic shock: POA, initially requiring pressors. now resolved 2. MRSA bacteremia: Echo showing "2.7 x 2.0 cm. hypoechoic structure attached to the [port] catheter consistent with vegetation"; port removed. on ceftaroline (started 12/14, plan for at least 6 weeks) 3. Metabolic encephalopathy: due to sepsis, hypotension. appears resolved 4. Acute respiratory failure: re-intubation 12/11 - extubated 12/13, re- intubated 12/15. trach planned for this PM 5. Pancytopenia: suspect 2/2 sepsis. WBC now stable ~4, plts increasing, >50 6. Anemia: s/p PRBC x1 on 12/13; H/H slowly drifting. appropriate recovery after PRBC x2 on 12/19. ? GIB with elevated BUN. re-check OB stool pending (had neg test on 12/07). 7. 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 monitor 8. Hyponatremia: resolved. now hypernatremia - improved with increased free water in OG, IVF bolus 9. Hypokalemia: resolved. monitor, replete as needed 10. DM: well controlled 11. SLE: Plaquenil on hold 12. Hypoalbuminemia: severe, prob multifactorial, incl malnutrition, inflammation. 13. Nutrition: currently on OG, planned PEG with trach; coordinate with GI 14. Recently treated urinary tract infection, Escherichia coli. 15. Hx breast CA: completed adjuvant AC and Herceptin in Jul 2016; echo with nl EF and wall motion History of Present Illness History of Present Illness intubated, lightly sedated. animated body language. no pain. wants to eat Vitals Vitals Vital Signs Date Time Temp Pulse Resp B/P (MAP) Pulse Ox O2 Delivery O2 Flow Rate FiO2 12/20/16 09:27 99 Ventilator 12/20/16 09:00 74 12 158/94 (115) 12/20/16 08:00 98.1 98.1 Physical Exam General: Alert, Cooperative, No acute distress Heart: Regular rate, Other (3/6 systolic murmur) Lungs: Clear Abdomen: Normal bowel sounds, Soft, No tenderness Extremities: No clubbing, Other (2+ edema/[place]) Skin: Other (several small echymoses over UE) Labs LABS Laboratory Tests Test 12/19/16 11:54 12/19/16 17:40 12/20/16 00:25 12/20/16 06:27 Glucose (Fingerstick) 167 mg/dL (70-99) 122 mg/dL (70-99) 89 mg/dL (70-99) 114 mg/dL (70-99) Test 12/20/16 06:30 White Blood Count 3.7 x10^3/uL (4.0-11.0) Red Blood Count 2.65 x10^6/uL (3.50-5.40) Hemoglobin 8.1 g/dL (12.0-15.5) Hematocrit 23.6 % (36.0-47.0) Mean Corpuscular Volume 89 fL (79-100) Mean Corpuscular Hemoglobin 30 pg (25-35) Mean Corpuscular Hemoglobin Concent 34 g/dL (31-37) Red Cell Distribution Width 15.8 % (11.5-14.5) Platelet Count 79 x10^3/uL (140-400) Neutrophils (%) (Auto) 77 % (31-73) Lymphocytes (%) (Auto) 16 % (24-48) Monocytes (%) (Auto) 6 % (0-9) Eosinophils (%) (Auto) 1 % (0-3) Basophils (%) (Auto) 0 % (0-3) Neutrophils # (Auto) 2.8 x10^3uL (1.8-7.7) Lymphocytes # (Auto) 0.6 x10^3/uL (1.0-4.8) Monocytes # (Auto) 0.2 x10^3/uL (0.0-1.1) Eosinophils # (Auto) 0.0 x10^3/uL (0.0-0.7) Basophils # (Auto) 0.0 x10^3/uL (0.0-0.2) Sodium Level 146 mmol/L (136-145) Potassium Level 3.6 mmol/L (3.5-5.1) Chloride Level 112 mmol/L (98-107) Carbon Dioxide Level 28 mmol/L (21-32) Anion Gap 6 (6-14) Blood Urea Nitrogen 41 mg/dL (7-20) Creatinine 1.0 mg/dL (0.6-1.0) Estimated GFR (Cockcroft-Gault) 69.7 BUN/Creatinine Ratio 41 (6-20) Glucose Level 111 mg/dL (70-99) Calcium Level 8.1 mg/dL (8.5-10.1) Total Bilirubin 0.5 mg/dL (0.2-1.0) Aspartate Amino Transf (AST/SGOT) 21 U/L (15-37) Alanine Aminotransferase (ALT/SGPT) 18 U/L (14-59) Alkaline Phosphatase 59 U/L (46-116) Total Protein 5.7 g/dL (6.4-8.2) Albumin 1.6 g/dL (3.4-5.0) Albumin/Globulin Ratio 0.4 (1.0-1.7) Nutrition Consultation Dietary Evaluation: Recommendations by RD: Increase Calorie Intake, PPN/TPN Comments: Rec. continue TF's: Diabetisource AC, goal rate 45 ml/hr flushes 200 cc q4h add 1 packet of prostat/morning Expected Outcomes/Goals: tolerate the TF's at goal rate- met meet 75% estimated nutrition needs- met Malnutrition Findings: Reduced Medical Staff Manager Strength: N/A Reduced Medical Staff Manager Strength (Non-Sev: N/A Malnutrition related to morbid: No Weight Status: Obese RICO WOODWARD MD Dec 20, 2016 10:22
--- NOTE | 2016-12-20 10:29 | PDOC ---
Subjective: Subjective: Indicates neck pain, tired of being in hospital. Objective: Objective: D/w Dr. Quijano and RN. Can't go to [facility] w/o trach, now possibly planned for this afternoon. Vital Signs: Vital Signs Date Time Temp Pulse Resp B/P (MAP) Pulse Ox O2 Delivery O2 Flow Rate FiO2 12/20/16 09:27 99 Ventilator 12/20/16 09:00 74 12 158/94 (115) 12/20/16 08:00 98.1 98.1 Labs: Laboratory Tests Test 12/19/16 11:54 12/19/16 17:40 12/20/16 00:25 12/20/16 06:27 Glucose (Fingerstick) 167 mg/dL 122 mg/dL 89 mg/dL 114 mg/dL Test 12/20/16 06:30 White Blood Count 3.7 x10^3/uL Red Blood Count 2.65 x10^6/uL Hemoglobin 8.1 g/dL Hematocrit 23.6 % Mean Corpuscular Volume 89 fL Mean Corpuscular Hemoglobin 30 pg Mean Corpuscular Hemoglobin Concent 34 g/dL Red Cell Distribution Width 15.8 % Platelet Count 79 x10^3/uL Neutrophils (%) (Auto) 77 % Lymphocytes (%) (Auto) 16 % Monocytes (%) (Auto) 6 % Eosinophils (%) (Auto) 1 % Basophils (%) (Auto) 0 % Neutrophils # (Auto) 2.8 x10^3uL Lymphocytes # (Auto) 0.6 x10^3/uL Monocytes # (Auto) 0.2 x10^3/uL Eosinophils # (Auto) 0.0 x10^3/uL Basophils # (Auto) 0.0 x10^3/uL Sodium Level 146 mmol/L Potassium Level 3.6 mmol/L Chloride Level 112 mmol/L Carbon Dioxide Level 28 mmol/L Anion Gap 6 Blood Urea Nitrogen 41 mg/dL Creatinine 1.0 mg/dL Estimated GFR (Cockcroft-Gault) 69.7 BUN/Creatinine Ratio 41 Glucose Level 111 mg/dL Calcium Level 8.1 mg/dL Total Bilirubin 0.5 mg/dL Aspartate Amino Transf (AST/SGOT) 21 U/L Alanine Aminotransferase (ALT/SGPT) 18 U/L Alkaline Phosphatase 59 U/L Total Protein 5.7 g/dL Albumin 1.6 g/dL Albumin/Globulin Ratio 0.4 PE: GEN: intubated, OG LUNGS: CTAB HEART: RRR ABD: probably distended (but stable), non-tender NEURO/PSYCH: awake, texting A/P: Resp failure requiring repeated intubations -DPOA requesting trach/PEG Pancytopenia -Hgb improved s/p transfusion -heme/onc following, thought related to sepsis/bacteremia -colonoscopy 2013 -on IV H2 jeaneth BID Hep C -untreated, CT w/o varices, did note ascites and splenomegaly -- Had planned to transfer to [facility] yesterday; however, cannot go until has tracheostomy which might be placed today. Will review any plans for PEG w/ Dr. Milian - is high risk w/ liver disease. ANSELMO JIN Dec 20, 2016 10:29
--- NOTE | 2016-12-20 11:03 | PDOC ---
PULMONARY PROGRESS NOTES Subjective awake, on CPAP Vitals Vital Signs Date Time Temp Pulse Resp B/P (MAP) Pulse Ox O2 Delivery O2 Flow Rate FiO2 12/20/16 09:27 99 Ventilator 12/20/16 09:00 74 12 158/94 (115) 12/20/16 08:00 98.1 98.1 General: Alert, No acute distress HEENT: Other (nc at perrl, orally intubated, nose clear... neck no lap, no thyromegaly) Lungs: Clear Cardiovascular: S1, S2 Abdomen: Soft, Non-tender Neuro Exam: Alert Extremities: Other (edema) Skin: Warm Labs Laboratory Tests Test 12/18/16 12:18 12/18/16 17:58 12/19/16 00:21 12/19/16 05:55 Glucose (Fingerstick) 153 mg/dL (70-99) 147 mg/dL (70-99) 105 mg/dL (70-99) 116 mg/dL (70-99) Test 12/19/16 08:00 12/19/16 08:30 12/19/16 11:54 12/19/16 17:40 O2 Saturation 95 % (92-99) Arterial Blood pH 7.43 (7.35-7.45) Arterial Blood pCO2 at Patient Temp 36 mmHg (35-46) Arterial Blood pO2 at Patient Temp 85 mmHg (75-108) Arterial Blood HCO3 24 mmol/L (21-28) Arterial Blood Base Excess -1 mmol/L (-3-3) FiO2 30% White Blood Count 3.2 x10^3/uL (4.0-11.0) Red Blood Count 2.08 x10^6/uL (3.50-5.40) Hemoglobin 6.3 g/dL (12.0-15.5) Hematocrit 19.0 % (36.0-47.0) Mean Corpuscular Volume 91 fL (79-100) Mean Corpuscular Hemoglobin 31 pg (25-35) Mean Corpuscular Hemoglobin Concent 33 g/dL (31-37) Red Cell Distribution Width 16.3 % (11.5-14.5) Platelet Count 63 x10^3/uL (140-400) Neutrophils (%) (Auto) 78 % (31-73) Lymphocytes (%) (Auto) 15 % (24-48) Monocytes (%) (Auto) 7 % (0-9) Eosinophils (%) (Auto) 1 % (0-3) Basophils (%) (Auto) 1 % (0-3) Neutrophils # (Auto) 2.4 x10^3uL (1.8-7.7) Lymphocytes # (Auto) 0.5 x10^3/uL (1.0-4.8) Monocytes # (Auto) 0.2 x10^3/uL (0.0-1.1) Eosinophils # (Auto) 0.0 x10^3/uL (0.0-0.7) Basophils # (Auto) 0.0 x10^3/uL (0.0-0.2) Sodium Level 148 mmol/L (136-145) Potassium Level 3.0 mmol/L (3.5-5.1) Chloride Level 112 mmol/L (98-107) Carbon Dioxide Level 28 mmol/L (21-32) Anion Gap 8 (6-14) Blood Urea Nitrogen 48 mg/dL (7-20) Creatinine 1.1 mg/dL (0.6-1.0) Estimated GFR (Cockcroft-Gault) 62.4 Glucose Level 124 mg/dL (70-99) Calcium Level 7.9 mg/dL (8.5-10.1) Glucose (Fingerstick) 167 mg/dL (70-99) 122 mg/dL (70-99) Test 12/20/16 00:25 12/20/16 06:27 12/20/16 06:30 Glucose (Fingerstick) 89 mg/dL (70-99) 114 mg/dL (70-99) White Blood Count 3.7 x10^3/uL (4.0-11.0) Red Blood Count 2.65 x10^6/uL (3.50-5.40) Hemoglobin 8.1 g/dL (12.0-15.5) Hematocrit 23.6 % (36.0-47.0) Mean Corpuscular Volume 89 fL (79-100) Mean Corpuscular Hemoglobin 30 pg (25-35) Mean Corpuscular Hemoglobin Concent 34 g/dL (31-37) Red Cell Distribution Width 15.8 % (11.5-14.5) Platelet Count 79 x10^3/uL (140-400) Neutrophils (%) (Auto) 77 % (31-73) Lymphocytes (%) (Auto) 16 % (24-48) Monocytes (%) (Auto) 6 % (0-9) Eosinophils (%) (Auto) 1 % (0-3) Basophils (%) (Auto) 0 % (0-3) Neutrophils # (Auto) 2.8 x10^3uL (1.8-7.7) Lymphocytes # (Auto) 0.6 x10^3/uL (1.0-4.8) Monocytes # (Auto) 0.2 x10^3/uL (0.0-1.1) Eosinophils # (Auto) 0.0 x10^3/uL (0.0-0.7) Basophils # (Auto) 0.0 x10^3/uL (0.0-0.2) Sodium Level 146 mmol/L (136-145) Potassium Level 3.6 mmol/L (3.5-5.1) Chloride Level 112 mmol/L (98-107) Carbon Dioxide Level 28 mmol/L (21-32) Anion Gap 6 (6-14) Blood Urea Nitrogen 41 mg/dL (7-20) Creatinine 1.0 mg/dL (0.6-1.0) Estimated GFR (Cockcroft-Gault) 69.7 BUN/Creatinine Ratio 41 (6-20) Glucose Level 111 mg/dL (70-99) Calcium Level 8.1 mg/dL (8.5-10.1) Total Bilirubin 0.5 mg/dL (0.2-1.0) Aspartate Amino Transf (AST/SGOT) 21 U/L (15-37) Alanine Aminotransferase (ALT/SGPT) 18 U/L (14-59) Alkaline Phosphatase 59 U/L (46-116) Total Protein 5.7 g/dL (6.4-8.2) Albumin 1.6 g/dL (3.4-5.0) Albumin/Globulin Ratio 0.4 (1.0-1.7) Laboratory Tests Test 12/19/16 11:54 12/19/16 17:40 12/20/16 00:25 12/20/16 06:27 Glucose (Fingerstick) 167 mg/dL (70-99) 122 mg/dL (70-99) 89 mg/dL (70-99) 114 mg/dL (70-99) Test 12/20/16 06:30 White Blood Count 3.7 x10^3/uL (4.0-11.0) Red Blood Count 2.65 x10^6/uL (3.50-5.40) Hemoglobin 8.1 g/dL (12.0-15.5) Hematocrit 23.6 % (36.0-47.0) Mean Corpuscular Volume 89 fL (79-100) Mean Corpuscular Hemoglobin 30 pg (25-35) Mean Corpuscular Hemoglobin Concent 34 g/dL (31-37) Red Cell Distribution Width 15.8 % (11.5-14.5) Platelet Count 79 x10^3/uL (140-400) Neutrophils (%) (Auto) 77 % (31-73) Lymphocytes (%) (Auto) 16 % (24-48) Monocytes (%) (Auto) 6 % (0-9) Eosinophils (%) (Auto) 1 % (0-3) Basophils (%) (Auto) 0 % (0-3) Neutrophils # (Auto) 2.8 x10^3uL (1.8-7.7) Lymphocytes # (Auto) 0.6 x10^3/uL (1.0-4.8) Monocytes # (Auto) 0.2 x10^3/uL (0.0-1.1) Eosinophils # (Auto) 0.0 x10^3/uL (0.0-0.7) Basophils # (Auto) 0.0 x10^3/uL (0.0-0.2) Sodium Level 146 mmol/L (136-145) Potassium Level 3.6 mmol/L (3.5-5.1) Chloride Level 112 mmol/L (98-107) Carbon Dioxide Level 28 mmol/L (21-32) Anion Gap 6 (6-14) Blood Urea Nitrogen 41 mg/dL (7-20) Creatinine 1.0 mg/dL (0.6-1.0) Estimated GFR (Cockcroft-Gault) 69.7 BUN/Creatinine Ratio 41 (6-20) Glucose Level 111 mg/dL (70-99) Calcium Level 8.1 mg/dL (8.5-10.1) Total Bilirubin 0.5 mg/dL (0.2-1.0) Aspartate Amino Transf (AST/SGOT) 21 U/L (15-37) Alanine Aminotransferase (ALT/SGPT) 18 U/L (14-59) Alkaline Phosphatase 59 U/L (46-116) Total Protein 5.7 g/dL (6.4-8.2) Albumin 1.6 g/dL (3.4-5.0) Albumin/Globulin Ratio 0.4 (1.0-1.7) Medications Active Scripts Medications Dose Route/Sig Max Daily Dose Days Date Category Oxycodone Hcl 5 Mg Tablet 5 Mg PO PRN Q6HRS PRN 11/28/16 Rx Albuterol Sulfate Neb Soln (Albuterol Sulfate) 1.25 Mg/3 Ml Vial.neb 1 Vial NEB Q6HRS 11/25/16 Reported Ranitidine Hcl 150 Mg Capsule 75 Mg PO DAILY 11/25/16 Reported Ondansetron Hcl 8 Mg Tablet 8 Mg PO DAILY 11/25/16 Reported Azithromycin Tablet (Azithromycin) 250 Mg Tablet 250 Mg PO DAILY 11/25/16 Reported Bupropion Hcl 100 Mg Tablet 100 Mg PO BID 11/25/16 Reported Nasal Allergy [place] (Cromolyn Sodium) 13 Ml [place].pump 13 Ml NS DAILY 11/25/16 Reported Gabapentin 300 Mg Capsule 300 Mg PO BID 11/25/16 Reported Hydroxyzine Hcl 25 Mg Tablet 25 Mg PO DAILY 11/25/16 Reported Nystatin 15 Gm Cream..g. 15 Gm TP BID 11/25/16 Reported Duloxetine Hcl 60 Mg Capsule.dr 60 Mg PO DAILY 11/25/16 Reported Clonidine Hcl 0.1 Mg Tablet 0.1 Mg PO DAILY 11/25/16 Reported Lisinopril 20 Mg Tablet 20 Mg PO DAILY 11/25/16 Reported Famciclovir 125 Mg Tablet 125 Mg PO DAILY 11/25/16 Reported Ropinirole Hcl 0.25 Mg Tablet 0.25 Mg PO DAILY 11/25/16 Reported Hydroxychloroquine Sulfate 200 Mg Tablet 200 Mg PO DAILY 11/25/16 Reported Lyrica (Pregabalin) 150 Mg Capsule 150 Mg PO DAILY 11/25/16 Reported Furosemide 20 Mg Tablet 20 Mg PO DAILY 11/25/16 Reported Alprazolam 0.25 Mg Tablet 0.25 Mg PO 11/25/16 Reported Oxycodone Hcl 5 Mg Tablet 5 Mg PO PRN Q4HRS PRN 11/25/16 Reported Ibuprofen 400 Mg Tablet 400 Mg PO PRN DAILY PRN 05/11/15 Reported Multivitamins (Multivitamin) 1 Each Tablet 1 Each PO DAILY 05/11/15 Reported Oxycodone-Acetaminophen 10-325 (Oxycodone Hcl/Acetaminophen) 1 Each Tablet 1 Each PO PRN Q4-6HRS PRN 05/11/15 Reported Plaquenil (Hydroxychloroquine Sulfate) 200 Mg Tablet 200 Mg PO BID 08/19/13 Reported Comments CXR REVIEWED CHF Impression . 1. Acute respiratory failure, multifactorial in etiology. THIRD INTUBATION 12/16 2. Abnormal chest x-ray secondary to volume overload, congestive heart failure , cannot exclude pneumonia. 3. Septic shock, bacteremia, g + cocci 4. Hypotension, resolved. 5. Pancytopenia. 6. Systemic lupus erythematosus, immunocompromised. 7. Hyponatremia. 8. Acute kidney injury. 9. History of breast cancer. 10. Hepatitis C. 11. Gastroesophageal reflux disease. 12. MRSA colonization. 13. ACUTE Blood loss anemia 14. POSITIVE CHARLI 12/16 Plan . CPAP DURING DAY/ AC qhs ANTIBX PER ID SUSPECT MOST OF CXR FINDINGS RELATED TO EDEMA, LASIX/ f/u CXR RESP STATUS DETERIORATED REINTUBATED 12/16 FOR THIRD TIME SHE NEEDS A TRACH . FAMILY AGREES. SCHEDULED FOR FRIDAY TUBE FEEDING REINTUBATED 12/10 EXTUBATED 12/13 UPPER EXT EDEMA TRANSFUSE NEEDED D/W RN/PCP D/W JOSE ROBERTO SOLIMAN MD Dec 20, 2016 11:03
[2016-12-20 11:16] LABS: NEG OBC FOB NEG; POS OBC FOB POS
[2016-12-20] MEDS: fentaNYL PF VIAL 100 MCG/2 ML VIAL IV PRN ×2 (13:21→17:07)
--- NOTE | 2016-12-20 13:35 | PDOC ---
Provider Note Provider Note SURG Cb for Dr Canas plan for trach Friday no new surg recs Dr Pelayo available over the weekend if needed JIM MATOS MD Dec 20, 2016 13:35
--- NOTE | 2016-12-20 13:49 | PDOC ---
PROGRESS NOTES Subjective Subjective c/c - f/u of pancytopenia ROS - on vent Objective Objective Vital Signs Date Time Temp Pulse Resp B/P (MAP) Pulse Ox O2 Delivery O2 Flow Rate FiO2 12/20/16 13:39 100 Ventilator 12/20/16 13:21 19 12/20/16 09:00 74 158/94 (115) 12/20/16 08:00 98.1 98.1 12/17/16 15:30 2.0 Intake and Output 12/20/16 07:00 Intake Total 6652 ml Output Total 2345 ml Balance 4307 ml Intake Oral 0 ml IV Total 2166 ml Tube Feeding 2301 ml Blood Product 792 ml Blood Product IV Normal Saline Flush 568 ml Other 825 ml Output Urine Total 2345 ml Gastric Drainage Total 0 ml Physical Exam General: Alert, Oriented X3 Neck: No JVD Assessment Assessment Problems Medical Problems: (1) Respiratory failure Status: Acute ASSESSMENT AND PLAN: The patient is a 55-year-old female with the following medical problems: 1. Acute pancytopenia, likely related to her severe sepsis with methicillin-resistant Staphylococcus aureus bacteremia. Her CBC was normal in late 10/2016. I recommend continuing to treat the underlying infection as you are doing. Transfuse for hemoglobin less than 7, platelets less than 20. She has no evidence of bleeding at this time. 2. Left upper extremity swelling. Ultrasound negative for a DVT 3. 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 She has several risk features. Ultimately, she agreed to have a mastectomy, which was completed in 04/2015. Her tumor was ER/NV negative, HER2 positive. She completed adjuvant Adriamycin/Cytoxan in 06/2015 and Taxol/Herceptin. She completed 1 year of Herceptin in 07/2016. A CT scan in 07/2016 showed indeterminant hilar lymph nodes and pulmonary nodules and bone scan was negative for any metastases. 4. Anemia worse, Hb 8.1, monitor hb 5. Thrombocytopenia better at 79, monitor cbc.. 6. Resp failure - appreciate pulm management. 7. Septic shock. No further recommendations. Please call if needed. Comment Review of Relevant I have reviewed the following items anselmo (where applicable) has been applied. Labs Laboratory Tests Test 12/18/16 17:58 12/19/16 00:21 12/19/16 05:55 12/19/16 08:00 Glucose (Fingerstick) 147 mg/dL (70-99) 105 mg/dL (70-99) 116 mg/dL (70-99) O2 Saturation 95 % (92-99) Arterial Blood pH 7.43 (7.35-7.45) Arterial Blood pCO2 at Patient Temp 36 mmHg (35-46) Arterial Blood pO2 at Patient Temp 85 mmHg (75-108) Arterial Blood HCO3 24 mmol/L (21-28) Arterial Blood Base Excess -1 mmol/L (-3-3) FiO2 30% Test 12/19/16 08:30 12/19/16 11:54 12/19/16 17:40 12/20/16 00:25 White Blood Count 3.2 x10^3/uL (4.0-11.0) Red Blood Count 2.08 x10^6/uL (3.50-5.40) Hemoglobin 6.3 g/dL (12.0-15.5) Hematocrit 19.0 % (36.0-47.0) Mean Corpuscular Volume 91 fL (79-100) Mean Corpuscular Hemoglobin 31 pg (25-35) Mean Corpuscular Hemoglobin Concent 33 g/dL (31-37) Red Cell Distribution Width 16.3 % (11.5-14.5) Platelet Count 63 x10^3/uL (140-400) Neutrophils (%) (Auto) 78 % (31-73) Lymphocytes (%) (Auto) 15 % (24-48) Monocytes (%) (Auto) 7 % (0-9) Eosinophils (%) (Auto) 1 % (0-3) Basophils (%) (Auto) 1 % (0-3) Neutrophils # (Auto) 2.4 x10^3uL (1.8-7.7) Lymphocytes # (Auto) 0.5 x10^3/uL (1.0-4.8) Monocytes # (Auto) 0.2 x10^3/uL (0.0-1.1) Eosinophils # (Auto) 0.0 x10^3/uL (0.0-0.7) Basophils # (Auto) 0.0 x10^3/uL (0.0-0.2) Sodium Level 148 mmol/L (136-145) Potassium Level 3.0 mmol/L (3.5-5.1) Chloride Level 112 mmol/L (98-107) Carbon Dioxide Level 28 mmol/L (21-32) Anion Gap 8 (6-14) Blood Urea Nitrogen 48 mg/dL (7-20) Creatinine 1.1 mg/dL (0.6-1.0) Estimated GFR (Cockcroft-Gault) 62.4 Glucose Level 124 mg/dL (70-99) Calcium Level 7.9 mg/dL (8.5-10.1) Glucose (Fingerstick) 167 mg/dL (70-99) 122 mg/dL (70-99) 89 mg/dL (70-99) Test 12/20/16 06:27 12/20/16 06:30 12/20/16 10:55 12/20/16 13:28 Glucose (Fingerstick) 114 mg/dL (70-99) 118 mg/dL (70-99) White Blood Count 3.7 x10^3/uL (4.0-11.0) Red Blood Count 2.65 x10^6/uL (3.50-5.40) Hemoglobin 8.1 g/dL (12.0-15.5) Hematocrit 23.6 % (36.0-47.0) Mean Corpuscular Volume 89 fL (79-100) Mean Corpuscular Hemoglobin 30 pg (25-35) Mean Corpuscular Hemoglobin Concent 34 g/dL (31-37) Red Cell Distribution Width 15.8 % (11.5-14.5) Platelet Count 79 x10^3/uL (140-400) Neutrophils (%) (Auto) 77 % (31-73) Lymphocytes (%) (Auto) 16 % (24-48) Monocytes (%) (Auto) 6 % (0-9) Eosinophils (%) (Auto) 1 % (0-3) Basophils (%) (Auto) 0 % (0-3) Neutrophils # (Auto) 2.8 x10^3uL (1.8-7.7) Lymphocytes # (Auto) 0.6 x10^3/uL (1.0-4.8) Monocytes # (Auto) 0.2 x10^3/uL (0.0-1.1) Eosinophils # (Auto) 0.0 x10^3/uL (0.0-0.7) Basophils # (Auto) 0.0 x10^3/uL (0.0-0.2) Sodium Level 146 mmol/L (136-145) Potassium Level 3.6 mmol/L (3.5-5.1) Chloride Level 112 mmol/L (98-107) Carbon Dioxide Level 28 mmol/L (21-32) Anion Gap 6 (6-14) Blood Urea Nitrogen 41 mg/dL (7-20) Creatinine 1.0 mg/dL (0.6-1.0) Estimated GFR (Cockcroft-Gault) 69.7 BUN/Creatinine Ratio 41 (6-20) Glucose Level 111 mg/dL (70-99) Calcium Level 8.1 mg/dL (8.5-10.1) Total Bilirubin 0.5 mg/dL (0.2-1.0) Aspartate Amino Transf (AST/SGOT) 21 U/L (15-37) Alanine Aminotransferase (ALT/SGPT) 18 U/L (14-59) Alkaline Phosphatase 59 U/L (46-116) Total Protein 5.7 g/dL (6.4-8.2) Albumin 1.6 g/dL (3.4-5.0) Albumin/Globulin Ratio 0.4 (1.0-1.7) Stool Occult Blood Negative (NEG) Laboratory Tests Test 12/19/16 17:40 12/20/16 00:25 12/20/16 06:27 12/20/16 06:30 Glucose (Fingerstick) 122 mg/dL (70-99) 89 mg/dL (70-99) 114 mg/dL (70-99) White Blood Count 3.7 x10^3/uL (4.0-11.0) Red Blood Count 2.65 x10^6/uL (3.50-5.40) Hemoglobin 8.1 g/dL (12.0-15.5) Hematocrit 23.6 % (36.0-47.0) Mean Corpuscular Volume 89 fL (79-100) Mean Corpuscular Hemoglobin 30 pg (25-35) Mean Corpuscular Hemoglobin Concent 34 g/dL (31-37) Red Cell Distribution Width 15.8 % (11.5-14.5) Platelet Count 79 x10^3/uL (140-400) Neutrophils (%) (Auto) 77 % (31-73) Lymphocytes (%) (Auto) 16 % (24-48) Monocytes (%) (Auto) 6 % (0-9) Eosinophils (%) (Auto) 1 % (0-3) Basophils (%) (Auto) 0 % (0-3) Neutrophils # (Auto) 2.8 x10^3uL (1.8-7.7) Lymphocytes # (Auto) 0.6 x10^3/uL (1.0-4.8) Monocytes # (Auto) 0.2 x10^3/uL (0.0-1.1) Eosinophils # (Auto) 0.0 x10^3/uL (0.0-0.7) Basophils # (Auto) 0.0 x10^3/uL (0.0-0.2) Sodium Level 146 mmol/L (136-145) Potassium Level 3.6 mmol/L (3.5-5.1) Chloride Level 112 mmol/L (98-107) Carbon Dioxide Level 28 mmol/L (21-32) Anion Gap 6 (6-14) Blood Urea Nitrogen 41 mg/dL (7-20) Creatinine 1.0 mg/dL (0.6-1.0) Estimated GFR (Cockcroft-Gault) 69.7 BUN/Creatinine Ratio 41 (6-20) Glucose Level 111 mg/dL (70-99) Calcium Level 8.1 mg/dL (8.5-10.1) Total Bilirubin 0.5 mg/dL (0.2-1.0) Aspartate Amino Transf (AST/SGOT) 21 U/L (15-37) Alanine Aminotransferase (ALT/SGPT) 18 U/L (14-59) Alkaline Phosphatase 59 U/L (46-116) Total Protein 5.7 g/dL (6.4-8.2) Albumin 1.6 g/dL (3.4-5.0) Albumin/Globulin Ratio 0.4 (1.0-1.7) Test 12/20/16 10:55 12/20/16 13:28 Stool Occult Blood Negative (NEG) Glucose (Fingerstick) 118 mg/dL (70-99) Microbiology 12/14/16 Blood Culture - Final, Complete NO GROWTH AFTER 5 DAYS 12/09/16 Stool Culture - Final, Complete 12/09/16 Stool Culture Result 1 (LUCINA) - Final, Complete 12/09/16 Campylobacter Antigen Assay - Final, Complete 12/09/16 Campylobactor Result 1 - Final, Complete 12/09/16 Shiga Toxin Test - Final, Complete 12/17/16 Gram Stain - Final, Complete 12/06/16 Urine Culture - Final, Complete 12/06/16 Urine Culture Result 1 (LUCINA) - Final, Complete 12/17/16 Gram Stain - Final, Complete Medications Current Medications Sodium Chloride 1,000 ml @ 1,000 mls/hr 1X ONCE IV Last administered on 16:18; Start 12/06/16 at 16:15; Stop 12/06/16 at 17:14; Status DC Vancomycin HCl (Vanco Per Pharmacy) 1 each PRN DAILY PRN MC SEE COMMENTS Last administered on 12/15/16 15:18; Start 12/06/16 at 17:00; Stop 12/16/16 at 09:58 ; Status DC Levofloxacin/ Dextrose 150 ml @ 100 mls/hr 1X ONCE IV Last administered on 20:04; Start 12/06/16 at 17:00; Stop 12/06/16 at 18:29; Status DC Vancomycin HCl 2 gm/Sodium Chloride 500 ml @ 250 mls/hr 1X ONCE IV Last administered on 12/06/16 17:11; Start 12/06/16 at 17:00; Stop 12/06/16 at 18:59 ; Status DC Sodium Chloride 1,000 ml @ 1,000 mls/hr 1X ONCE IV Last administered on 17:09; Start 12/06/16 at 17:00; Stop 12/06/16 at 17:59; Status DC Meropenem 500 mg/ Sodium Chloride 50 ml @ 100 mls/hr Q8HRS IV Last administered on 12/10/16 07:30; Start 12/06/16 at 18:00; Stop 12/10/16 at 08:13 ; Status DC Dopamine HCl/ Dextrose 250 ml @ 16.414 mls/ hr 1X ONCE IV Last administered on 12/06/16 17:41; Start 12/06/16 at 17:15; Stop 12/07/16 at 08:28; Status DC Etomidate (Amidate) 20 mg 1X ONCE IV Last administered on 12/06/16 17:19; Start 12/06/16 at 17:15; Stop 12/06/16 at 17:17; Status DC Succinylcholine Chloride (Anectine) 100 mg 1X ONCE IV Last administered on 17:20; Start 12/06/16 at 17:15; Stop 12/06/16 at 17:17; Status DC Vancomycin HCl 1.25 gm/Sodium Chloride 250 ml @ 167 mls/hr Q24H IV Last administered on 12/07/16 18:39; Start 12/07/16 at 17:00; Stop 12/07/16 at 23:00 ; Status DC Vancomycin HCl 1 each 1X ONCE MC ; Start 12/07/16 at 16:30; Stop 12/07/16 at 16 :31; Status Cancel Midazolam HCl 100 ml @ As Directed STK-MED ONCE IV ; Start 12/06/16 at 17:36; Stop 12/06/16 at 17:37; Status DC Midazolam HCl (Versed) 5 mg STK-MED ONCE .ROUTE ; Start 12/06/16 at 17:37; Stop 12/06/16 at 17:38; Status DC Midazolam HCl (Versed) 5 mg PRN Q10MIN PRN IV SEDATION; Start 12/06/16 at 17:45 Hydrocortisone Sodium Succinate (Solu-CORTEF) 100 mg Q8HRS IV Last administered on 12/09/16 13:55; Start 12/06/16 at 18:30; Stop 12/09/16 at 16:21 ; Status DC Norepinephrine Bitartrate 16 mg/ Sodium Chloride 266 ml @ 0 mls/hr CONT PRN IV SEE I/O RECORD; Start 12/06/16 at 19:00; Status UNV Pantoprazole Sodium (Protonix Vial) 40 mg DAILYAC IVP Last administered on 12/15 08:40; Start 12/06/16 at 19:30; Stop 12/15/16 at 10:35; Status DC Acetaminophen (Tylenol) 325 mg PRN Q6HRS PRN PO MILD PAIN / TEMP; Start at 19:00 Hydralazine HCl (Apresoline) 10 mg PRN Q4HRS PRN IVP ELEVATED BP, SEE COMMENTS Last administered on 12/17/16 12:26; Start 12/06/16 at 19:00 Ondansetron HCl (Zofran) 4 mg PRN Q8HRS PRN IV NAUSEA/VOMITING; Start 12/06/16 at 19:00; Stop 12/12/16 at 08:31; Status DC Albuterol Sulfate (Ventolin Neb Soln) 2.5 mg PRN Q4HRS PRN NEB SHORTNESS OF BREATH Last administered on 12/16/16 00:43; Start 12/06/16 at 19:00 Norepinephrine Bitartrate 250 ml @ 1.875 mls/ hr CONT PRN IV SEE I/O RECORD Last administered on 12/06/16 19:55; Start 12/06/16 at 19:00; Stop 12/15/16 at 10:33; Status DC Sodium Chloride 1,000 ml @ 1,000 mls/hr 1X ONCE IV Last administered on 19:56; Start 12/06/16 at 19:15; Stop 12/06/16 at 20:14; Status DC Sodium Chloride 1,000 ml @ 75 mls/hr [id number] IV Last administered on 21:55; Start 12/06/16 at 19:15; Stop 12/09/16 at 18:44; Status DC Pneumococcal Polyvalent Vaccine (Do NOT chart on this placeholder) 1 each PRN DAILY PRN MC PT UNABLE TO RESPOND; Start 12/07/16 at 09:30; Status Cancel Pneumococcal Polyvalent Vaccine (Pneumovax 23) 0.5 ml ONCE ONCE VAX IM ; Start 12/08/16 at 09:00; Stop 12/08/16 at 09:01; Status DC Albuterol/ Ipratropium (Duoneb) 3 ml RTQID NEB Last administered on 12/20/16 11:23; Start 12/07/16 at 12:00 Midazolam HCl 100 ml @ 0 mls/hr CONT PRN IV SEE I/O RECORD Last administered on 12/07/16 10:29; Start 12/07/16 at 10:15; Stop 12/13/16 at 20:41; Status DC Fentanyl Citrate (Fentanyl 2ml Vial) 25 mcg PRN Q1HR PRN IV PAIN Last administered on 12/20/16 13:21; Start 12/07/16 at 10:45 Pantoprazole Sodium (Protonix Vial) 40 mg DAILYAC IVP ; Start 12/07/16 at 17:00 ; Status Cancel Vancomycin HCl 1.25 gm/Sodium Chloride 250 ml @ 167 mls/hr Q12H IV Last administered on 12/13/16 18:25; Start 12/08/16 at 06:00; Stop 12/13/16 at 18:54 ; Status DC Vancomycin HCl 1 each 1X ONCE MC ; Start 12/08/16 at 17:30; Stop 12/08/16 at 17 :31; Status DC Vancomycin HCl 1 gm/Sodium Chloride 250 ml @ 250 mls/hr Q12H IV ; Start at 18:00; Status Cancel Chlorhexidine Gluconate (Peridex) 15 ml BID SWSP ; Start 12/09/16 at 21:00; Stop 12/10/16 at 07:23; Status DC Hydrocortisone Sodium Succinate (Solu-CORTEF) 100 mg Q12HR IV Last administered on 12/14/16 08:53; Start 12/09/16 at 21:00; Stop 12/14/16 at 16:52 ; Status DC Amino Acids/ Glycerin/ Electrolytes 1,000 ml @ 40 mls/hr Q24H IV Last administered on 12/09/16 17:56; Start 12/09/16 at 17:00; Stop 12/10/16 at 14:16 ; Status DC Alprazolam (Xanax) 0.25 mg DAILY PO Last administered on 12/20/16 08:14; Start 12/10/16 at 09:00 Bupropion HCl (Wellbutrin) 100 mg BID PO Last administered on 12/20/16 08:14; Start 12/09/16 at 21:00 Gabapentin (Neurontin) 300 mg BID PO ; Start 12/09/16 at 21:00; Status Cancel Ropinirole HCl (Requip) 0.25 mg QHS PO Last administered on 12/19/16 21:34; Start 12/09/16 at 21:00 Pregabalin (Lyrica) 150 mg DAILY PO Last administered on 12/19/16 08:16; Start 12/10/16 at 09:00; Stop 12/19/16 at 18:41; Status DC Epinephrine (S2 Racepinephrine) 0.5 ml 1X ONCE NEB Last administered on 07:45; Start 12/10/16 at 07:45; Stop 12/10/16 at 07:46; Status DC Lorazepam (Ativan) 2 mg 1X ONCE IV Last administered on 12/10/16 08:33; Start 12/10/16 at 08:00; Stop 12/10/16 at 08:01; Status DC Succinylcholine Chloride (Anectine) 200 mg STK-MED ONCE .ROUTE ; Start 12/10/16 at 10:28; Stop 12/10/16 at 10:29; Status DC Propofol 100 ml @ As Directed STK-MED ONCE IV ; Start 12/10/16 at 10:28; Stop 12/10/16 at 10:29; Status DC Calcium Gluconate (Calcium Gluconate) 1,000 mg 1X ONCE IVP Last administered on 12/10/16 11:41; Start 12/10/16 at 11:30; Stop 12/10/16 at 11:31; Status DC Succinylcholine Chloride (Anectine) 200 mg 1X ONCE IV Last administered on 11:41; Start 12/10/16 at 11:30; Stop 12/10/16 at 11:31; Status DC Propofol 100 ml @ 0 mls/hr CONT PRN IV SEE I/O RECORD Last administered on 12/13 00:57; Start 12/10/16 at 11:30; Stop 12/13/16 at 20:41; Status DC Insulin Aspart (NovoLOG) 0-5 UNITS TIDWMEALS SQ ; Start 12/11/16 at 08:00; Stop 12/11/16 at 08:00; Status DC Dextrose (Dextrose 50%-Water Syringe) 12.5 gm PRN Q15MIN PRN IV SEE COMMENTS; Start 12/10/16 at 20:30 Insulin Aspart (NovoLOG) 0-5 UNITS Q6HRS SQ Last administered on 12/19/16 11: 57; Start 12/11/16 at 00:00 Chlorhexidine Gluconate (Peridex) 15 ml BID MM Last administered on 12/13/16 09:46; Start 12/11/16 at 21:00; Stop 12/13/16 at 20:41; Status DC Fentanyl Citrate (Fentanyl 2ml Vial) 25 mcg PRN Q5MIN PRN IV MILD PAIN; Start 12/12/16 at 07:00; Stop 12/13/16 at 06:59; Status DC Fentanyl Citrate (Fentanyl 2ml Vial) 50 mcg PRN Q5MIN PRN IV MODERATE PAIN; Start 12/12/16 at 07:00; Stop 12/13/16 at 06:59; Status DC Morphine Sulfate 1 mg PRN Q10MIN PRN IV SEVERE PAIN; Start 12/12/16 at 07:00; Stop 12/13/16 at 06:59; Status DC Ringer's Solution 1,000 ml @ 30 mls/hr Q24H IV ; Start 12/12/16 at 07:00; Stop 12/12/16 at 18:59; Status DC Lidocaine HCl 2 ml PRN 1X PRN ID PRIOR TO IV START; Start 12/12/16 at 07:00; Stop 12/13/16 at 06:59; Status DC Hydromorphone HCl (Dilaudid) 0.5 mg PRN Q10MIN PRN IV SEV PAIN, Second choice; Start 12/12/16 at 07:00; Stop 12/13/16 at 06:59; Status DC Prochlorperazine Edisylate (Compazine) 5 mg PACU PRN PRN IV NAUSEA, MRX1; Start 12/12/16 at 07:00; Stop 12/13/16 at 06:59; Status DC Lidocaine HCl (Lidocaine Pf 2% Vial) 5 ml STK-MED ONCE .ROUTE ; Start 12/12/16 at 08:15; Stop 12/12/16 at 08:16; Status DC Propofol 0 ml @ As Directed STK-MED ONCE IV ; Start 12/12/16 at 08:15; Stop at 08:16; Status DC Ondansetron HCl (Zofran) 4 mg PRN Q6HRS PRN IV NAUSEA/VOMITING Last administered on 12/14/16t 01:41; Start 12/12/16 at 19:00 Acetaminophen (Tylenol) 650 mg PRN Q6HRS PRN PEG MILD PAIN / TEMP Last administered on 6/25/17at 17:25; Start 12/12/16 at 08:30 Vancomycin HCl 1 each 1X ONCE MC Last administered on 12/13/16 10:00; Start 12/13/16 at 10:00; Stop 12/13/16 at 10:01; Status DC Furosemide (Lasix) 40 mg 1X ONCE IVP Last administered on 12/13/16 11:31; Start 12/13/16 at 11:15; Stop 12/13/16 at 11:16; Status DC Amino Acids/ Glycerin/ Electrolytes 1,000 ml @ 75 mls/hr [id number] IV Last administered on 12/15/16 04:25; Start 12/13/16 at 21:00; Stop 12/15/16 at 10:33 ; Status DC Vancomycin HCl 1 each 1X ONCE MC Last administered on 12/14/16 09:00; Start 12/14/16 at 09:00; Stop 12/14/16 at 09:01; Status DC Vancomycin HCl 1 each 1X ONCE MC ; Start 12/15/16 at 06:00; Stop 12/15/16 at 06 :01; Status Cancel Vancomycin HCl 1 each 1X ONCE MC Last administered on 12/15/16 06:00; Start 12/15/16 at 06:00; Stop 12/15/16 at 06:01; Status DC Alteplase, Recombinant (Cathflo) 2 mg 1X ONCE INT CAT Last administered on 14:58; Start 12/14/16 at 14:30; Stop 12/14/16 at 14:34; Status DC Hydrocortisone Sodium Succinate (Solu-CORTEF) 100 mg DAILY IV Last administered on 12/19/16 08:17; Start 12/15/16 at 09:00; Stop 12/19/16 at 10:04 ; Status DC Haloperidol Lactate (Haldol) 2.5 mg PRN Q4HRS PRN IVP AGITATION Last administered on 12/15/16 20:35; Start 12/15/16 at 06:45 Lansoprazole (Prevacid) 30 mg DAILYAC FT ; Start 12/16/16 at 07:30; Stop at 10:00; Status DC Vancomycin HCl 1 gm/Sodium Chloride 250 ml @ 250 mls/hr Q48H IV ; Start at 21:00; Status Cancel Morphine Sulfate 2 mg PRN Q2HR PRN IV SEVERE PAIN Last administered on 01:19; Start 12/15/16 at 21:15 Zolpidem Tartrate (Ambien) 5 mg PRN QHS PRN PO INSOMNIA Last administered on 00:17; Start 12/16/16 at 00:00 Propofol 100 ml @ As Directed STK-MED ONCE IV ; Start 12/16/16 at 02:34; Stop 12/16/16 at 02:35; Status DC Succinylcholine Chloride (Anectine) 200 mg STK-MED ONCE .ROUTE ; Start 12/16/16 at 02:57; Stop 12/16/16 at 02:58; Status DC Succinylcholine Chloride (Anectine) 200 mg STK-MED ONCE .ROUTE ; Start 12/16/16 at 02:57; Stop 12/16/16 at 02:58; Status DC Etomidate (Amidate) 20 mg STK-MED ONCE IV ; Start 12/16/16 at 02:58; Stop at 02:59; Status DC Propofol 100 ml @ 0 mls/hr CONT PRN IV SEE I/O RECORD; Start 12/16/16 at 04:15 ; Stop 12/16/16 at 08:04; Status DC Chlorhexidine Gluconate (Peridex) 15 ml BID MM Last administered on 12/20/16 08:16; Start 12/16/16 at 09:00 Propofol (Diprivan) 1,000 mg STK-MED ONCE IV ; Start 12/16/16 at 03:00; Stop at 07:11; Status DC Furosemide (Lasix) 40 mg DAILY IVP Last administered on 12/20/16 08:15; Start 12/16/16 at 09:00 Ceftaroline Fosamil 600 mg/ Sodium Chloride 250 ml @ 250 mls/hr Q8HRS IV Last administered on 12/20/16 13:21; Start 12/16/16 at 10:00 Famotidine (Pepcid) 20 mg BID IVP Last administered on 12/20/16 08:15; Start 12/16/16 at 10:30 Propofol 100 ml @ 0 mls/hr CONT PRN IV PER PROTOCOL Last administered on 01:49; Start 12/16/16 at 06:45 Fentanyl Citrate (Fentanyl 2ml Vial) 25 mcg PRN Q5MIN PRN IV MILD PAIN; Start 12/16/16 at 12:45; Stop 12/17/16 at 12:44; Status DC Fentanyl Citrate (Fentanyl 2ml Vial) 50 mcg PRN Q5MIN PRN IV MODERATE PAIN; Start 12/16/16 at 12:45; Stop 12/17/16 at 12:44; Status DC Morphine Sulfate 1 mg PRN Q10MIN PRN IV SEVERE PAIN; Start 12/16/16 at 12:45; Stop 12/17/16 at 12:44; Status DC Ringer's Solution 1,000 ml @ 30 mls/hr Q24H IV ; Start 12/16/16 at 12:32; Stop 12/17/16 at 00:31; Status DC Lidocaine HCl 2 ml PRN 1X PRN ID PRIOR TO IV START; Start 12/16/16 at 12:45; Stop 12/17/16 at 12:44; Status DC Hydromorphone HCl (Dilaudid) 0.5 mg PRN Q10MIN PRN IV SEV PAIN, Second choice; Start 12/16/16 at 12:45; Stop 12/17/16 at 12:44; Status DC Prochlorperazine Edisylate (Compazine) 5 mg PACU PRN PRN IV NAUSEA, MRX1; Start 12/16/16 at 12:45; Stop 12/17/16 at 12:44; Status DC Dextrose/Sodium Chloride 1,000 ml @ 50 mls/hr Q20H IV ; Start 12/16/16 at 13:00 ; Stop 12/16/16 at 13:38; Status DC Potassium Chloride (KCl Oral Soln) 20 meq 1X ONCE PEG Last administered on t 11:28; Start 12/17/16 at 11:00; Stop 12/17/16 at 11:01; Status DC Lidocaine/Sodium Bicarbonate (Buffered Lidocaine 1%) 20 ml STK-MED ONCE IJ ; Start 12/17/16 at 14:48; Stop 12/17/16 at 14:49; Status DC Heparin Sodium/ Sodium Chloride 500 ml @ As Directed STK-MED ONCE .ROUTE ; Start 12/17/16 at 14:48; Stop 12/17/16 at 14:49; Status DC Lidocaine/Sodium Bicarbonate (Buffered Lidocaine 1%) 3 ml 1X ONCE IJ Last administered on 12/17/16 16:01; Start 12/17/16 at 15:15; Stop 12/17/16 at 15:16 ; Status DC Heparin Sodium/ Sodium Chloride 60 unit 1X ONCE IV Last administered on 16:02; Start 12/17/16 at 15:15; Stop 12/17/16 at 15:16; Status DC Lidocaine/ Epinephrine (Xylocaine 1%-Epi 1:100,000) 10 ml 1X ONCE INJ Last administered on 12/17/16 16:01; Start 12/17/16 at 15:15; Stop 12/17/16 at 15:16 ; Status DC Gelatin (Gelfoam Size 12-7mm) 1 each STK-MED ONCE .ROUTE ; Start 12/17/16 at 15 :01; Stop 12/17/16 at 15:02; Status DC Iohexol (Omnipaque 300 Mg/ml) 75 ml 1X ONCE IV ; Start 12/18/16 at 14:00; Stop 12/18/16 at 14:01; Status DC Info (Do NOT chart on this entry -- for MONITORING) 1 each PRN DAILY PRN MC SEE COMMENTS; Start 12/18/16 at 14:00; Stop 12/20/16 at 13:59 Potassium Chloride (Klor-Con) 40 meq Q2H PO Last administered on 12/19/16 14: 51; Start 12/19/16 at 10:00; Stop 12/19/16 at 12:01; Status DC Hydrocortisone Sodium Succinate (Solu-CORTEF) 50 mg DAILY IV Last administered on 12/20/16 08:15; Start 12/20/16 at 09:00 Potassium Chloride 20 meq/ Sodium Chloride 510 ml @ 500 mls/hr 1X ONCE IV Last administered on 12/19/16 11:42; Start 12/19/16 at 11:00; Stop 12/19/16 at 12:01; Status DC Nystatin (Nystop) 1 [email or web address] BID TP Last administered on 12/20/16 08:16; Start at 21:00 Pregabalin (Lyrica) 75 mg [id number] PO Last administered on 12/20/16 08:14; Start 12/19/16 at 21:00 Sodium Chloride 1,000 ml @ 100 mls/hr 1X ONCE IV Last administered on 00:28; Start 12/20/16 at 00:15; Stop 12/20/16 at 10:14; Status DC Active Scripts Active Ambien (Zolpidem Tartrate) 5 Mg Tablet 5 Mg PO PRN QHS PRN Hydrocodone-Apap 7.5-325/15 Soln (Hydrocodone Bit/Acetaminophen) 15 Ml Solution 15 Ml PO PRN Q6HRS PRN Morphine Sulfate 2 Mg/1 Ml Cartridge 2 Mg IV PRN Q2HR PRN Oxycodone Hcl 5 Mg Tablet 5 Mg PO PRN Q6HRS PRN Reported Albuterol Sulfate Neb Soln (Albuterol Sulfate) 1.25 Mg/3 Ml Vial.neb 1 Vial NEB Q6HRS Ranitidine Hcl 150 Mg Capsule 75 Mg PO DAILY Ondansetron Hcl 8 Mg Tablet 8 Mg PO DAILY Azithromycin Tablet (Azithromycin) 250 Mg Tablet 250 Mg PO DAILY Bupropion Hcl 100 Mg Tablet 100 Mg PO BID Nasal Allergy Ayer (Cromolyn Sodium) 13 Ml Ayer.pump 13 Ml NS DAILY Gabapentin 300 Mg Capsule 300 Mg PO BID Hydroxyzine Hcl 25 Mg Tablet 25 Mg PO DAILY Nystatin 15 Gm Cream..g. 15 Gm TP BID Duloxetine Hcl 60 Mg Capsule.dr 60 Mg PO DAILY Clonidine Hcl 0.1 Mg Tablet 0.1 Mg PO DAILY Lisinopril 20 Mg Tablet 20 Mg PO DAILY Famciclovir 125 Mg Tablet 125 Mg PO DAILY Ropinirole Hcl 0.25 Mg Tablet 0.25 Mg PO DAILY Hydroxychloroquine Sulfate 200 Mg Tablet 200 Mg PO DAILY Lyrica (Pregabalin) 150 Mg Capsule 150 Mg PO DAILY Furosemide 20 Mg Tablet 20 Mg PO DAILY Alprazolam 0.25 Mg Tablet 0.25 Mg PO Oxycodone Hcl 5 Mg Tablet 5 Mg PO PRN Q4HRS PRN Ibuprofen 400 Mg Tablet 400 Mg PO PRN DAILY PRN Multivitamins (Multivitamin) 1 Each Tablet 1 Each PO DAILY Oxycodone-Acetaminophen 10-325 (Oxycodone Hcl/Acetaminophen) 1 Each Tablet 1 Each PO PRN Q4-6HRS PRN Plaquenil (Hydroxychloroquine Sulfate) 200 Mg Tablet 200 Mg PO BID Vitals/I & O Vital Sign - Last 24 Hours 12/19/16 12/19/16 12/19/16 12/19/16 14:00 14:32 14:45 15:00 Temp 99.1 98.8 99.1 98.8 Pulse 78 78 79 78 Resp 29 16 16 B/P (MAP) 133/70 (91) 133/70 133/70 141/74 (96) Pulse Ox 99 100 O2 Delivery Ventilator Ventilator 12/19/16 12/19/16 12/19/16 12/19/16 15:27 16:00 16:00 16:02 Resp 15 B/P (MAP) 138/71 (93) Pulse Ox 98 100 O2 Delivery Ventilator Mechanical Ventilator Ventilator 12/19/16 12/19/16 12/19/16 12/19/16 16:32 17:00 17:51 18:00 Pulse 67 68 Resp 18 11 12 B/P (MAP) 138/71 (93) 131/66 (87) Pulse Ox 98 99 97 O2 Delivery Ventilator Ventilator Ventilator Ventilator 12/19/16 12/19/16 12/19/16 12/19/16 19:00 19:34 20:00 20:00 Temp 98.9 98.9 Pulse 66 65 Resp 11 11 B/P (MAP) 114/58 (76) 112/58 (76) Pulse Ox 98 99 98 O2 Delivery Ventilator Ventilator Mechanical Ventilator Ventilator 12/19/16 12/19/16 12/19/16 12/19/16 21:00 22:00 22:40 23:00 Pulse 66 66 64 Resp 11 11 11 B/P (MAP) 113/60 (77) 117/59 (78) 123/59 (80) Pulse Ox 97 98 98 98 O2 Delivery Ventilator Ventilator Ventilator Ventilator 12/20/16 12/20/16 12/20/16 12/20/16 00:00 00:00 00:57 01:00 Temp 99.1 99.1 Pulse 62 66 Resp 11 15 B/P (MAP) 121/65 (83) 136/75 (95) Pulse Ox 97 98 99 O2 Delivery Mechanical Ventilator Ventilator Ventilator Ventilator 12/20/16 12/20/16 12/20/16 12/20/16 02:00 03:00 03:03 04:00 Temp 97.9 97.9 Pulse 62 64 70 Resp 15 14 14 B/P (MAP) 124/66 (85) 126/70 (88) 127/71 (89) Pulse Ox 99 100 99 99 O2 Delivery Ventilator Ventilator Ventilator Ventilator 12/20/16 12/20/16 12/20/16 12/20/16 04:00 05:00 05:41 06:00 Pulse 64 64 Resp 16 16 B/P (MAP) 120/81 (94) 127/67 (87) Pulse Ox 100 99 100 O2 Delivery Mechanical Ventilator Ventilator Ventilator Ventilator 12/20/16 12/20/16 12/20/16 12/20/16 07:00 08:00 08:00 08:29 Temp 98.1 98.1 Pulse 64 68 Resp 16 18 B/P (MAP) 130/72 (91) 148/78 (101) Pulse Ox 100 98 100 O2 Delivery Ventilator Ventilator Mechanical Ventilator Ventilator 12/20/16 12/20/16 12/20/16 12/20/16 09:00 09:27 11:23 13:21 Pulse 74 Resp 12 19 B/P (MAP) 158/94 (115) Pulse Ox 95 99 100 O2 Delivery Ventilator Ventilator Ventilator Ventilator 12/20/16 13:39 Pulse Ox 100 O2 Delivery Ventilator Intake and Output 12/19/16 12/19/16 12/20/16 15:00 23:00 07:00 Intake Total 818 ml 3715 ml 2119 ml Output Total 1275 ml 780 ml 290 ml Balance -457 ml 2935 ml 1829 ml Nutrition Consultation Dietary Evaluation: Recommendations by RD: Increase Calorie Intake, PPN/TPN Comments: Rec. continue TF's: Diabetisource AC, goal rate 45 ml/hr flushes 200 cc q4h add 1 packet of prostat/morning Expected Outcomes/Goals: tolerate the TF's at goal rate- met meet 75% estimated nutrition needs- met Malnutrition Findings: Reduced Chemical Educator Strength: N/A Reduced Chemical Educator Strength (Non-Sev: N/A Malnutrition related to morbid: No Weight Status: Obese ELLE CLARK MD Dec 20, 2016 13:49
[2016-12-20] MEDS: rOPINIRole 0.25 MG TABLET. PO SCH (21:10)
[2016-12-20] MEDS: MORPHINE SULFATE 2 MG/ML DISP.SYRIN. IV PRN (21:11)
[2016-12-21] VITALS (24 sets, daily range): BP systolic 124–153; BP diastolic 62–88
[2016-12-21] MEDS: INSULIN ASPART 300 UNITS/3 ML INSULN.PEN SQ SCH ×4 (06:00→18:00)
[2016-12-21] MEDS: CEFTAROLINE FOSAMIL 600 MG in IV NORMAL SALINE 250ML 250 ML IV SCH ×3 (06:36→21:05)
[2016-12-21] MEDS: IPRATRPIUM/ALBUTEROL 0.5/2.5MG 3 ML NEBU. NEB SCH ×4 (07:57→19:06)
[2016-12-21 08:12] LABS: BASO % 0 % (0-3); EOS % 1 % (0-3); HEMATOCRIT 25.7 % (36.0-47.0); HEMOGLOBIN 8.5 g/dL (12.0-15.5); LYMPH # 0.6 x10^3/uL (1.0-4.8); LYMPH % 16 % (24-48); MEAN CORPUSCULAR HEMOGLOBIN 30 pg (25-35); MEAN CORPUSCULAR HGB CONC 33 g/dL (31-37); MEAN CORPUSCULAR VOLUME 91 fL (79-100); MONO % 5 % (0-9); NEUT % 78 % (31-73); PLATELET COUNT 83 x10^3/uL (140-400); RED BLOOD COUNT 2.84 x10^6/uL (3.50-5.40); RED CELL DISTRIBUTION WIDTH 15.7 % (11.5-14.5); WHITE BLOOD COUNT 3.8 x10^3/uL (4.0-11.0)
--- NOTE | 2016-12-21 08:20 | RAD ---
Portable chest, 12/21/2016: History: Congestive heart failure Comparison is made to a study from 12/17/2016. The patient is rotated to the left. The tip of the ET tube lies well above the nunu. A nasogastric type tube remains in place extending at least into the stomach, although its tip is not visible. A right jugular central venous catheter extends into the superior aspect of the right atrium. The heart size is unchanged. The pulmonary vascularity is congested. There are moderate ongoing bibasilar opacities compatible with infiltrate and pleural fluid. These appear to have worsened with increasing left lower lobe opacification. There is no evidence of pneumothorax. IMPRESSION: 1. Various tubes and catheters remain in place as described above. 2. Ongoing vascular congestion with slight interval worsening of the basilar infiltrates and pleural effusions
[2016-12-21 08:25] LABS: CALCIUM 8.5 mg/dL (8.5-10.1); GFR 69.7; POTASSIUM 3.4 mmol/L (3.5-5.1)
[2016-12-21] MEDS: buPROPion 100 MG TABLET PO SCH ×2 (08:33→21:04)
[2016-12-21] MEDS: ALPRAZolam 0.25 MG TABLET PO SCH (08:33)
[2016-12-21] MEDS: PREGABALIN 75 MG CAPSULE PO SCH ×3 (08:36→21:05)
[2016-12-21] MEDS: FAMOTIDINE 20 MG/2 ML VIAL IVP SCH ×2 (08:42→21:04)
--- NOTE | 2016-12-21 08:46 | PDOC ---
PROGRESS NOTES Chief Complaint Chief Complaint AMS Sepsis ASSESSMENT AND PLAN: 1. Septic shock: POA, initially requiring pressors. now resolved 2. MRSA bacteremia: Echo showing 2.7 x 2.0 cm with vegetation on cath -> port removed. on ceftaroline (started 12/14, plan for at least 6 weeks) 3. Metabolic encephalopathy: due to sepsis, hypotension. appears resolved 4. Acute respiratory failure: re-intubation 12/11 - extubated 12/13, re- intubated 12/15. trach planned for Friday 5. Pancytopenia: suspect 2/2 sepsis. WBC now stable ~4, plts increasing, >50 6. Anemia: s/p PRBC x1 on 12/13; H/H slowly drifting. appropriate recovery after PRBC x2 on 12/19. unlikely GIB with re-check OB stool negative (had neg test on 12/07). 7. 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 sl improved. monitor 8. Hyponatremia: resolved. now hypernatremia - borderline with increased free water. decrease lasix IV 9. Hypokalemia: resolved. monitor, replete as needed 10. DM: well controlled 11. SLE: Plaquenil on hold 12. Knee pain: arthritis (psoriatic vs ostero); treat symptomatically with PO /TD meds 13. Petechial rash: in intertrichial folds, prob pressure rash in thrombocytopenic state. prophylactic nystatin 14. Hypoalbuminemia: severe, prob multifactorial, incl malnutrition, inflammation. 15. Nutrition: currently on OG, no PEG 2/2 ascites, cirrhosis. plan for Dobhoff with trach 16. Recently treated urinary tract infection, E.coli, pansensitive 17. Hx breast CA: completed adjuvant AC and Herceptin in Jul 2016; echo with nl EF and wall motion [id number] discussion with [employer] congressional representative Dr Miranda yesterday: transfer to LTAC not allowed until trach in place, despite clear financial disadvantages not only to pt, but to insurance Co... History of Present Illness History of Present Illness intubated, lightly sedated. animated body language. pain in knee Vitals Vitals Vital Signs Date Time Temp Pulse Resp B/P (MAP) Pulse Ox O2 Delivery O2 Flow Rate FiO2 12/21/16 07:57 99 Ventilator 12/21/16 06:00 78 14 142/73 (96) 12/21/16 04:00 98.5 98.5 Physical Exam General: Alert, Oriented X3 Heart: Regular rate, Other (3/6 systolic murmur) Lungs: Clear Abdomen: Normal bowel sounds, Soft, No tenderness Extremities: No clubbing, Other (1-2+ edema) Skin: Other (several small echymoses over UE) Labs LABS Laboratory Tests Test 12/20/16 10:55 12/20/16 13:28 12/20/16 19:00 12/21/16 00:21 Stool Occult Blood Negative (NEG) Glucose (Fingerstick) 118 mg/dL (70-99) 78 mg/dL (70-99) 84 mg/dL (70-99) Test 12/21/16 06:30 12/21/16 06:33 White Blood Count 3.8 x10^3/uL (4.0-11.0) Red Blood Count 2.84 x10^6/uL (3.50-5.40) Hemoglobin 8.5 g/dL (12.0-15.5) Hematocrit 25.7 % (36.0-47.0) Mean Corpuscular Volume 91 fL (79-100) Mean Corpuscular Hemoglobin 30 pg (25-35) Mean Corpuscular Hemoglobin Concent 33 g/dL (31-37) Red Cell Distribution Width 15.7 % (11.5-14.5) Platelet Count 83 x10^3/uL (140-400) Neutrophils (%) (Auto) 78 % (31-73) Lymphocytes (%) (Auto) 16 % (24-48) Monocytes (%) (Auto) 5 % (0-9) Eosinophils (%) (Auto) 1 % (0-3) Basophils (%) (Auto) 0 % (0-3) Neutrophils # (Auto) 2.9 x10^3uL (1.8-7.7) Lymphocytes # (Auto) 0.6 x10^3/uL (1.0-4.8) Monocytes # (Auto) 0.2 x10^3/uL (0.0-1.1) Eosinophils # (Auto) 0.0 x10^3/uL (0.0-0.7) Basophils # (Auto) 0.0 x10^3/uL (0.0-0.2) Sodium Level 147 mmol/L (136-145) Potassium Level 3.4 mmol/L (3.5-5.1) Chloride Level 111 mmol/L (98-107) Carbon Dioxide Level 30 mmol/L (21-32) Anion Gap 6 (6-14) Blood Urea Nitrogen 34 mg/dL (7-20) Creatinine 1.0 mg/dL (0.6-1.0) Estimated GFR (Cockcroft-Gault) 69.7 Glucose Level 117 mg/dL (70-99) Calcium Level 8.5 mg/dL (8.5-10.1) Glucose (Fingerstick) 120 mg/dL (70-99) Nutrition Consultation Dietary Evaluation: Recommendations by RD: Increase Calorie Intake, PPN/TPN Comments: Rec. continue TF's: Diabetisource AC, goal rate 45 ml/hr flushes 200 cc q4h add 1 packet of prostat/morning Expected Outcomes/Goals: tolerate the TF's at goal rate- met meet 75% estimated nutrition needs- met Malnutrition Findings: Reduced Professor Of Environmental Engineering Strength: N/A Reduced Professor Of Environmental Engineering Strength (Non-Sev: N/A Malnutrition related to morbid: No Weight Status: Obese RICO WOODWARD MD Dec 21, 2016 08:46
--- NOTE | 2016-12-21 08:54 | PDOC ---
Infectious Disease Note Subjective Subjective Remains intubated, FiO2 30%. Tube feedings via OGT. No fever., N/V/D Denies SOA, CP or upset stomach. Right-sided neck pain, better Rash- pt attributes to lupus Vital Sign Vital Signs Vital Signs Date Time Temp Pulse Resp B/P (MAP) Pulse Ox O2 Delivery O2 Flow Rate FiO2 12/21/16 07:57 99 Ventilator 12/21/16 06:00 78 14 142/73 (96) 12/21/16 04:00 98.5 98.5 Physical Exam PHYSICAL EXAM GENERAL: Propped up in bed, calm, NAD HEENT: ETT. OGT LUNGS: Clear anteriorly HEART: S1S2, no gallop, no murmur ABD: Soft, NT, BS active : Vaughan EXT: BLE edema. No cyanosis METAL STUD FRAMER: Alert, responds appropriately, nods to questions SKIN: Erythema chest, neck areas RIJ. clean. (12/17) Port-out Labs Lab Laboratory Tests Test 12/20/16 10:55 12/20/16 13:28 12/20/16 19:00 12/21/16 00:21 Stool Occult Blood Negative (NEG) Glucose (Fingerstick) 118 mg/dL (70-99) 78 mg/dL (70-99) 84 mg/dL (70-99) Test 12/21/16 06:30 12/21/16 06:33 White Blood Count 3.8 x10^3/uL (4.0-11.0) Red Blood Count 2.84 x10^6/uL (3.50-5.40) Hemoglobin 8.5 g/dL (12.0-15.5) Hematocrit 25.7 % (36.0-47.0) Mean Corpuscular Volume 91 fL (79-100) Mean Corpuscular Hemoglobin 30 pg (25-35) Mean Corpuscular Hemoglobin Concent 33 g/dL (31-37) Red Cell Distribution Width 15.7 % (11.5-14.5) Platelet Count 83 x10^3/uL (140-400) Neutrophils (%) (Auto) 78 % (31-73) Lymphocytes (%) (Auto) 16 % (24-48) Monocytes (%) (Auto) 5 % (0-9) Eosinophils (%) (Auto) 1 % (0-3) Basophils (%) (Auto) 0 % (0-3) Neutrophils # (Auto) 2.9 x10^3uL (1.8-7.7) Lymphocytes # (Auto) 0.6 x10^3/uL (1.0-4.8) Monocytes # (Auto) 0.2 x10^3/uL (0.0-1.1) Eosinophils # (Auto) 0.0 x10^3/uL (0.0-0.7) Basophils # (Auto) 0.0 x10^3/uL (0.0-0.2) Sodium Level 147 mmol/L (136-145) Potassium Level 3.4 mmol/L (3.5-5.1) Chloride Level 111 mmol/L (98-107) Carbon Dioxide Level 30 mmol/L (21-32) Anion Gap 6 (6-14) Blood Urea Nitrogen 34 mg/dL (7-20) Creatinine 1.0 mg/dL (0.6-1.0) Estimated GFR (Cockcroft-Gault) 69.7 Glucose Level 117 mg/dL (70-99) Calcium Level 8.5 mg/dL (8.5-10.1) Glucose (Fingerstick) 120 mg/dL (70-99) Micro 12/17. SPUTUM CULT RES 1 Final Methicillin - resistant Staphylococcus aureus Antibiotic RSLT#1 Ciprofloxacin S Clindamycin S Erythromycin R Gentamicin S Levofloxacin S Linezolid S Oxacillin R Penicillin R Rifampin S Tetracycline S Trimethoprim/Sulfa S Vancomycin S Cath tip AEROBIC RES 1 Preliminary Staphylococcus aureus Objective Assessment Acute resp failure - reintubated. s/p bronch 12/16. staph aureus Infected port a cath with veg on port seen on CHARLI 12/16. s/p Removal 12/17. MRSA Sepsis. POA with MRSA bacteremia. 12/06 -TTE neg. CHARLI veg on port. Repeat BC 12/10 positive, 12/14 negative. MRSA pneumonia, POA Hypotension, now off pressors Pancytopenia/anemia - some better PCN allergy, reaction unknown Acute encephalopathy, improved LEONARDO h/o breast cancer, s/p chemo. Port removed Lupus on Plaquenil Recent E. coli UTI MRSA nares, 11/25, 12/06 Diarrhea. C. diff. neg 12/06 Plan Plan of Care Given thrombocytopenia (avoid Zyvox and has bacteremia)/Acute resp failure ( Avoid Dapto no lung coverage) ? ant chest rash and ? Vanc kinetics - will cont Teflaro to cover lung and blood. Monitor WBC, Cr Supportive care Trach scheduled for Friday. Per GI, peg deferred due to high risk of leakage in the setting of ascites. Dobbhoff feedings recommended. Critically ill Attending Co-Sign The patient was seen and interviewed as well as examined at the bedside. The chart was reviewed. The case was discussed. Agree with the plan of care. YOCASTA RODRÍGUEZ APRN Dec 21, 2016 08:54 AMANDA MARC MD Dec 21, 2016 12:48
[2016-12-21] MEDS: HYDROCORTISONE SOD SUCC/PF 100 MG/2 ML VIAL. IV SCH (09:01)
[2016-12-21] MEDS: CHLORHEXIDINE 0.12% 15 ML MOUTHWASH. MM SCH ×2 (09:03→21:04)
[2016-12-21] MEDS: NYSTATIN TOPICAL POWDER 15GM BOTTLE. TP SCH ×2 (09:03→21:05)
[2016-12-21] MEDS: FUROSEMIDE 40 MG/4 ML VIAL. IVP SCH (09:03)
[2016-12-21] MEDS: MORPHINE SULFATE 2 MG/ML DISP.SYRIN. IV PRN (09:51)
--- NOTE | 2016-12-21 10:12 | PDOC ---
PULMONARY PROGRESS NOTES Subjective awake, on CPAP Vitals Vital Signs Date Time Temp Pulse Resp B/P (MAP) Pulse Ox O2 Delivery O2 Flow Rate FiO2 12/21/16 09:51 18 98 Ventilator 3.0 12/21/16 06:00 78 142/73 (96) 12/21/16 04:00 98.5 98.5 General: Alert, No acute distress HEENT: Other (nc at perrl, orally intubated, nose clear... neck no lap, no thyromegaly) Lungs: Clear Cardiovascular: S1, S2 Abdomen: Soft, Non-tender Neuro Exam: Alert Extremities: Other (edema) Skin: Warm Labs Laboratory Tests Test 12/19/16 11:54 12/19/16 17:40 12/20/16 00:25 12/20/16 06:27 Glucose (Fingerstick) 167 mg/dL (70-99) 122 mg/dL (70-99) 89 mg/dL (70-99) 114 mg/dL (70-99) Test 12/20/16 06:30 12/20/16 10:55 12/20/16 13:28 12/20/16 19:00 White Blood Count 3.7 x10^3/uL (4.0-11.0) Red Blood Count 2.65 x10^6/uL (3.50-5.40) Hemoglobin 8.1 g/dL (12.0-15.5) Hematocrit 23.6 % (36.0-47.0) Mean Corpuscular Volume 89 fL (79-100) Mean Corpuscular Hemoglobin 30 pg (25-35) Mean Corpuscular Hemoglobin Concent 34 g/dL (31-37) Red Cell Distribution Width 15.8 % (11.5-14.5) Platelet Count 79 x10^3/uL (140-400) Neutrophils (%) (Auto) 77 % (31-73) Lymphocytes (%) (Auto) 16 % (24-48) Monocytes (%) (Auto) 6 % (0-9) Eosinophils (%) (Auto) 1 % (0-3) Basophils (%) (Auto) 0 % (0-3) Neutrophils # (Auto) 2.8 x10^3uL (1.8-7.7) Lymphocytes # (Auto) 0.6 x10^3/uL (1.0-4.8) Monocytes # (Auto) 0.2 x10^3/uL (0.0-1.1) Eosinophils # (Auto) 0.0 x10^3/uL (0.0-0.7) Basophils # (Auto) 0.0 x10^3/uL (0.0-0.2) Sodium Level 146 mmol/L (136-145) Potassium Level 3.6 mmol/L (3.5-5.1) Chloride Level 112 mmol/L (98-107) Carbon Dioxide Level 28 mmol/L (21-32) Anion Gap 6 (6-14) Blood Urea Nitrogen 41 mg/dL (7-20) Creatinine 1.0 mg/dL (0.6-1.0) Estimated GFR (Cockcroft-Gault) 69.7 BUN/Creatinine Ratio 41 (6-20) Glucose Level 111 mg/dL (70-99) Calcium Level 8.1 mg/dL (8.5-10.1) Total Bilirubin 0.5 mg/dL (0.2-1.0) Aspartate Amino Transf (AST/SGOT) 21 U/L (15-37) Alanine Aminotransferase (ALT/SGPT) 18 U/L (14-59) Alkaline Phosphatase 59 U/L (46-116) Total Protein 5.7 g/dL (6.4-8.2) Albumin 1.6 g/dL (3.4-5.0) Albumin/Globulin Ratio 0.4 (1.0-1.7) Stool Occult Blood Negative (NEG) Glucose (Fingerstick) 118 mg/dL (70-99) 78 mg/dL (70-99) Test 12/21/16 00:21 12/21/16 06:30 12/21/16 06:33 Glucose (Fingerstick) 84 mg/dL (70-99) 120 mg/dL (70-99) White Blood Count 3.8 x10^3/uL (4.0-11.0) Red Blood Count 2.84 x10^6/uL (3.50-5.40) Hemoglobin 8.5 g/dL (12.0-15.5) Hematocrit 25.7 % (36.0-47.0) Mean Corpuscular Volume 91 fL (79-100) Mean Corpuscular Hemoglobin 30 pg (25-35) Mean Corpuscular Hemoglobin Concent 33 g/dL (31-37) Red Cell Distribution Width 15.7 % (11.5-14.5) Platelet Count 83 x10^3/uL (140-400) Neutrophils (%) (Auto) 78 % (31-73) Lymphocytes (%) (Auto) 16 % (24-48) Monocytes (%) (Auto) 5 % (0-9) Eosinophils (%) (Auto) 1 % (0-3) Basophils (%) (Auto) 0 % (0-3) Neutrophils # (Auto) 2.9 x10^3uL (1.8-7.7) Lymphocytes # (Auto) 0.6 x10^3/uL (1.0-4.8) Monocytes # (Auto) 0.2 x10^3/uL (0.0-1.1) Eosinophils # (Auto) 0.0 x10^3/uL (0.0-0.7) Basophils # (Auto) 0.0 x10^3/uL (0.0-0.2) Sodium Level 147 mmol/L (136-145) Potassium Level 3.4 mmol/L (3.5-5.1) Chloride Level 111 mmol/L (98-107) Carbon Dioxide Level 30 mmol/L (21-32) Anion Gap 6 (6-14) Blood Urea Nitrogen 34 mg/dL (7-20) Creatinine 1.0 mg/dL (0.6-1.0) Estimated GFR (Cockcroft-Gault) 69.7 Glucose Level 117 mg/dL (70-99) Calcium Level 8.5 mg/dL (8.5-10.1) Laboratory Tests Test 12/20/16 10:55 12/20/16 13:28 12/20/16 19:00 12/21/16 00:21 Stool Occult Blood Negative (NEG) Glucose (Fingerstick) 118 mg/dL (70-99) 78 mg/dL (70-99) 84 mg/dL (70-99) Test 12/21/16 06:30 12/21/16 06:33 White Blood Count 3.8 x10^3/uL (4.0-11.0) Red Blood Count 2.84 x10^6/uL (3.50-5.40) Hemoglobin 8.5 g/dL (12.0-15.5) Hematocrit 25.7 % (36.0-47.0) Mean Corpuscular Volume 91 fL (79-100) Mean Corpuscular Hemoglobin 30 pg (25-35) Mean Corpuscular Hemoglobin Concent 33 g/dL (31-37) Red Cell Distribution Width 15.7 % (11.5-14.5) Platelet Count 83 x10^3/uL (140-400) Neutrophils (%) (Auto) 78 % (31-73) Lymphocytes (%) (Auto) 16 % (24-48) Monocytes (%) (Auto) 5 % (0-9) Eosinophils (%) (Auto) 1 % (0-3) Basophils (%) (Auto) 0 % (0-3) Neutrophils # (Auto) 2.9 x10^3uL (1.8-7.7) Lymphocytes # (Auto) 0.6 x10^3/uL (1.0-4.8) Monocytes # (Auto) 0.2 x10^3/uL (0.0-1.1) Eosinophils # (Auto) 0.0 x10^3/uL (0.0-0.7) Basophils # (Auto) 0.0 x10^3/uL (0.0-0.2) Sodium Level 147 mmol/L (136-145) Potassium Level 3.4 mmol/L (3.5-5.1) Chloride Level 111 mmol/L (98-107) Carbon Dioxide Level 30 mmol/L (21-32) Anion Gap 6 (6-14) Blood Urea Nitrogen 34 mg/dL (7-20) Creatinine 1.0 mg/dL (0.6-1.0) Estimated GFR (Cockcroft-Gault) 69.7 Glucose Level 117 mg/dL (70-99) Calcium Level 8.5 mg/dL (8.5-10.1) Glucose (Fingerstick) 120 mg/dL (70-99) Medications Active Scripts Medications Dose Route/Sig Max Daily Dose Days Date Category Oxycodone Hcl 5 Mg Tablet 5 Mg PO PRN Q6HRS PRN 11/28/16 Rx Albuterol Sulfate Neb Soln (Albuterol Sulfate) 1.25 Mg/3 Ml Vial.neb 1 Vial NEB Q6HRS 6/5/17 Reported Ranitidine Hcl 150 Mg Capsule 75 Mg PO DAILY 11/25/16 Reported Ondansetron Hcl 8 Mg Tablet 8 Mg PO DAILY 11/25/16 Reported Azithromycin Tablet (Azithromycin) 250 Mg Tablet 250 Mg PO DAILY 11/25/16 Reported Bupropion Hcl 100 Mg Tablet 100 Mg PO BID 11/25/16 Reported Nasal Allergy [place] (Cromolyn Sodium) 13 Ml [place].pump 13 Ml NS DAILY 11/25/16 Reported Gabapentin 300 Mg Capsule 300 Mg PO BID 11/25/16 Reported Hydroxyzine Hcl 25 Mg Tablet 25 Mg PO DAILY 11/25/16 Reported Nystatin 15 Gm Cream..g. 15 Gm TP BID 11/25/16 Reported Duloxetine Hcl 60 Mg Capsule.dr 60 Mg PO DAILY 11/25/16 Reported Clonidine Hcl 0.1 Mg Tablet 0.1 Mg PO DAILY 11/25/16 Reported Lisinopril 20 Mg Tablet 20 Mg PO DAILY 11/25/16 Reported Famciclovir 125 Mg Tablet 125 Mg PO DAILY 11/25/16 Reported Ropinirole Hcl 0.25 Mg Tablet 0.25 Mg PO DAILY 11/25/16 Reported Hydroxychloroquine Sulfate 200 Mg Tablet 200 Mg PO DAILY 11/25/16 Reported Lyrica (Pregabalin) 150 Mg Capsule 150 Mg PO DAILY 11/25/16 Reported Furosemide 20 Mg Tablet 20 Mg PO DAILY 11/25/16 Reported Alprazolam 0.25 Mg Tablet 0.25 Mg PO 11/25/16 Reported Oxycodone Hcl 5 Mg Tablet 5 Mg PO PRN Q4HRS PRN 11/25/16 Reported Ibuprofen 400 Mg Tablet 400 Mg PO PRN DAILY PRN 05/11/15 Reported Multivitamins (Multivitamin) 1 Each Tablet 1 Each PO DAILY 05/11/15 Reported Oxycodone-Acetaminophen 10-325 (Oxycodone Hcl/Acetaminophen) 1 Each Tablet 1 Each PO PRN Q4-6HRS PRN 05/11/15 Reported Plaquenil (Hydroxychloroquine Sulfate) 200 Mg Tablet 200 Mg PO BID 08/19/13 Reported Comments CXR REVIEWED CHF Impression . 1. Acute respiratory failure, multifactorial in etiology. THIRD INTUBATION 12/16 2. Abnormal chest x-ray secondary to volume overload, congestive heart failure , cannot exclude pneumonia. 3. Septic shock, bacteremia, g + cocci 4. Hypotension, resolved. 5. Pancytopenia. 6. Systemic lupus erythematosus, immunocompromised. 7. Hyponatremia. 8. Acute kidney injury. 9. History of breast cancer. 10. Hepatitis C. 11. Gastroesophageal reflux disease. 12. MRSA colonization. 13. ACUTE Blood loss anemia 14. POSITIVE CHARLI 12/16 Plan . CPAP DURING DAY/ AC qhs ANTIBX PER ID SUSPECT MOST OF CXR FINDINGS RELATED TO EDEMA, LASIX/ f/u CXR SLIGHTLY WORSE RESP STATUS DETERIORATED REINTUBATED 12/16 FOR THIRD TIME SHE NEEDS A TRACH . FAMILY AGREES. SCHEDULED FOR FRIDAY TUBE FEEDING REINTUBATED 12/10 EXTUBATED 12/13 UPPER EXT EDEMA TRANSFUSE NEEDED D/W RN/PCP D/W JOSE ROBERTO SOLIMAN MD Dec 21, 2016 10:11
[2016-12-21] MEDS ORDERED: HYDROcodon/APAP 7.5/325MG ORAL 15 ML SOLUTION PO PRN (11:15)
[2016-12-21] MEDS: PROPOFOL 100 ML IV PRN (11:35)
[2016-12-21] MEDS: POTASSIUM CHLORIDE 20MEQ 50 ML IV SCH ×2 (12:26→16:06)
[2016-12-21] MEDS: rOPINIRole 0.25 MG TABLET. PO SCH (21:04)
[2016-12-21] MEDS: fentaNYL PF VIAL 100 MCG/2 ML VIAL IV PRN (21:06)
[2016-12-22] VITALS (24 sets, daily range): BP systolic 103–152; BP diastolic 48–90
[2016-12-22] MEDS: PROPOFOL 100 ML IV PRN ×2 (00:33→14:55)
[2016-12-22] MEDS: CEFTAROLINE FOSAMIL 600 MG in IV NORMAL SALINE 250ML 250 ML IV SCH ×3 (05:52→21:07)
[2016-12-22] MEDS: INSULIN ASPART 300 UNITS/3 ML INSULN.PEN SQ SCH ×4 (06:00→18:00)
[2016-12-22 06:21] LABS: BASO % 1 % (0-3); EOS % 1 % (0-3); HEMATOCRIT 24.1 % (36.0-47.0); HEMOGLOBIN 8.4 g/dL (12.0-15.5); LYMPH # 0.7 x10^3/uL (1.0-4.8); LYMPH % 21 % (24-48); MEAN CORPUSCULAR HEMOGLOBIN 31 pg (25-35); MEAN CORPUSCULAR HGB CONC 35 g/dL (31-37); MEAN CORPUSCULAR VOLUME 88 fL (79-100); MONO % 7 % (0-9); NEUT % 71 % (31-73); PLATELET COUNT 79 x10^3/uL (140-400); RED BLOOD COUNT 2.73 x10^6/uL (3.50-5.40); RED CELL DISTRIBUTION WIDTH 15.9 % (11.5-14.5); WHITE BLOOD COUNT 3.3 x10^3/uL (4.0-11.0)
[2016-12-22 06:24] LABS: CALCIUM 8.3 mg/dL (8.5-10.1); CREATININE 0.9 mg/dL (0.6-1.0); GFR 78.4; POTASSIUM 3.2 mmol/L (3.5-5.1)
[2016-12-22] MEDS: METHYL SALICYLATE/MENTHOL TOPICAL OINTMENT 29GM TUBE. TP PRN ×3 (06:44→21:07)
--- NOTE | 2016-12-22 07:25 | PDOC ---
PROGRESS NOTES Chief Complaint Chief Complaint AMS Sepsis ASSESSMENT AND PLAN: 1. MRSA bacteremia: Echo showing 2.7 x 2.0 cm with vegetation on cath -> port removed. on ceftaroline (started 12/14, plan for at least 6 weeks) 2. Septic shock: POA, initially requiring pressors. now resolv 3. Metabolic encephalopathy: due to sepsis, hypotension. appears resolveded 4. Acute respiratory failure: re-intubation 12/11 - extubated 12/13, re- intubated 12/15. trach planned for Friday 5. Pancytopenia: WBC now stable ~4, plts ~80, prob reflecting untreated HCV 6. Anemia: s/p PRBC x1 on 12/13; and PRBC x2 on 12/19. unlikely GIB with re- check OB stool negative (had neg test on 12/07, 12/20). 7. 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 sl improved. monitor 8. Hyponatremia: resolved. now hypernatremia - borderline with increased free water. decrease lasix IV 9. Hypokalemia: recurrent. monitor, replete as needed 10. HCV cirrhosis: untreated. resultant ascites, pancytopenia, hypoalbuminemia and suspected varices 11. DM: well controlled 12. SLE: Plaquenil on hold 13. Knee pain: arthritis (Lupus vs osteo); treat symptomatically with PO/TD meds 14. Petechial rash: in intertrichial folds, prob pressure rash in thrombocytopenic state previously. nystatin powder 15. Hypoalbuminemia: severe, prob multifactorial, incl malnutrition, inflammation. 16. Nutrition: currently on OG, no PEG 2/2 ascites, cirrhosis. plan for Dobbhoff with trach 17. Recently treated urinary tract infection, E.coli, pansensitive 18. Hx breast CA: completed adjuvant AC and Herceptin in Jul 2016; echo with nl EF and wall motion 19. Dispo: to LTAC post trach and Dobbhoff placement History of Present Illness History of Present Illness intubated, lightly sedated. communicating with arm movements, writing. pain in knee much improved Vitals Vitals Vital Signs Date Time Temp Pulse Resp B/P (MAP) Pulse Ox O2 Delivery O2 Flow Rate FiO2 12/22/16 06:00 74 13 140/66 (90) 100 12/22/16 05:25 Ventilator 12/22/16 03:00 98.1 98.1 12/21/16 18:00 3.0 Physical Exam General: Alert, Oriented X3, Cooperative, No acute distress Heart: Regular rate, Other (3/6 systolic murmur) Lungs: Clear Abdomen: Normal bowel sounds, Soft, No tenderness Extremities: No clubbing, Other (1-2+ edema) Skin: Other (several small echymoses over UE) Labs LABS Laboratory Tests Test 12/21/16 12:15 12/21/16 16:43 12/22/16 00:25 12/22/16 05:54 Glucose (Fingerstick) 131 mg/dL (70-99) 133 mg/dL (70-99) 91 mg/dL (70-99) 114 mg/dL (70-99) Test 12/22/16 06:00 White Blood Count 3.3 x10^3/uL (4.0-11.0) Red Blood Count 2.73 x10^6/uL (3.50-5.40) Hemoglobin 8.4 g/dL (12.0-15.5) Hematocrit 24.1 % (36.0-47.0) Mean Corpuscular Volume 88 fL (79-100) Mean Corpuscular Hemoglobin 31 pg (25-35) Mean Corpuscular Hemoglobin Concent 35 g/dL (31-37) Red Cell Distribution Width 15.9 % (11.5-14.5) Platelet Count 79 x10^3/uL (140-400) Neutrophils (%) (Auto) 71 % (31-73) Lymphocytes (%) (Auto) 21 % (24-48) Monocytes (%) (Auto) 7 % (0-9) Eosinophils (%) (Auto) 1 % (0-3) Basophils (%) (Auto) 1 % (0-3) Neutrophils # (Auto) 2.3 x10^3uL (1.8-7.7) Lymphocytes # (Auto) 0.7 x10^3/uL (1.0-4.8) Monocytes # (Auto) 0.2 x10^3/uL (0.0-1.1) Eosinophils # (Auto) 0.0 x10^3/uL (0.0-0.7) Basophils # (Auto) 0.0 x10^3/uL (0.0-0.2) Sodium Level 146 mmol/L (136-145) Potassium Level 3.2 mmol/L (3.5-5.1) Chloride Level 109 mmol/L (98-107) Carbon Dioxide Level 31 mmol/L (21-32) Anion Gap 6 (6-14) Blood Urea Nitrogen 34 mg/dL (7-20) Creatinine 0.9 mg/dL (0.6-1.0) Estimated GFR (Cockcroft-Gault) 78.4 Glucose Level 110 mg/dL (70-99) Calcium Level 8.3 mg/dL (8.5-10.1) Nutrition Consultation Dietary Evaluation: Recommendations by RD: Increase Calorie Intake, PPN/TPN Comments: Rec. continue TF's: Diabetisource AC, goal rate 45 ml/hr flushes 200 cc q4h add 1 packet of prostat/morning Expected Outcomes/Goals: tolerate the TF's at goal rate- met meet 75% estimated nutrition needs- met Malnutrition Findings: Reduced Brush Fabrication Supervisor Strength: N/A Reduced Brush Fabrication Supervisor Strength (Non-Sev: N/A Malnutrition related to morbid: No Weight Status: Obese RICO WOODWARD MD Dec 22, 2016 07:25
[2016-12-22] MEDS ORDERED: POTASSIUM CHLORIDE 20 MEQ/15 ML ORAL LIQUID. PO ONE (07:45)
[2016-12-22] MEDS: IPRATRPIUM/ALBUTEROL 0.5/2.5MG 3 ML NEBU. NEB SCH ×4 (08:05→19:59)
--- NOTE | 2016-12-22 08:13 | PDOC ---
Infectious Disease Note Subjective Subjective Remains intubated, FiO2 30%. Tube feedings No fever., N/V/D Denies SOA, CP or anxiety Vital Sign Vital Signs Vital Signs Date Time Temp Pulse Resp B/P (MAP) Pulse Ox O2 Delivery O2 Flow Rate FiO2 12/22/16 06:00 74 13 140/66 (90) 100 12/22/16 05:25 Ventilator 12/22/16 03:00 98.1 98.1 12/21/16 18:00 3.0 Physical Exam PHYSICAL EXAM GENERAL: Propped up in bed, calm, NAD HEENT: ETT. OGT LUNGS: Clear anteriorly HEART: S1S2, no gallop, no murmur ABD: Soft, NT, BS active : [place] EXT: BLE edema. 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 clean. (12/17) Labs Lab Laboratory Tests Test 12/21/16 12:15 12/21/16 16:43 12/22/16 00:25 12/22/16 05:54 Glucose (Fingerstick) 131 mg/dL (70-99) 133 mg/dL (70-99) 91 mg/dL (70-99) 114 mg/dL (70-99) Test 12/22/16 06:00 White Blood Count 3.3 x10^3/uL (4.0-11.0) Red Blood Count 2.73 x10^6/uL (3.50-5.40) Hemoglobin 8.4 g/dL (12.0-15.5) Hematocrit 24.1 % (36.0-47.0) Mean Corpuscular Volume 88 fL (79-100) Mean Corpuscular Hemoglobin 31 pg (25-35) Mean Corpuscular Hemoglobin Concent 35 g/dL (31-37) Red Cell Distribution Width 15.9 % (11.5-14.5) Platelet Count 79 x10^3/uL (140-400) Neutrophils (%) (Auto) 71 % (31-73) Lymphocytes (%) (Auto) 21 % (24-48) Monocytes (%) (Auto) 7 % (0-9) Eosinophils (%) (Auto) 1 % (0-3) Basophils (%) (Auto) 1 % (0-3) Neutrophils # (Auto) 2.3 x10^3uL (1.8-7.7) Lymphocytes # (Auto) 0.7 x10^3/uL (1.0-4.8) Monocytes # (Auto) 0.2 x10^3/uL (0.0-1.1) Eosinophils # (Auto) 0.0 x10^3/uL (0.0-0.7) Basophils # (Auto) 0.0 x10^3/uL (0.0-0.2) Sodium Level 146 mmol/L (136-145) Potassium Level 3.2 mmol/L (3.5-5.1) Chloride Level 109 mmol/L (98-107) Carbon Dioxide Level 31 mmol/L (21-32) Anion Gap 6 (6-14) Blood Urea Nitrogen 34 mg/dL (7-20) Creatinine 0.9 mg/dL (0.6-1.0) Estimated GFR (Cockcroft-Gault) 78.4 Glucose Level 110 mg/dL (70-99) Calcium Level 8.3 mg/dL (8.5-10.1) Micro 12/17. SPUTUM CULT RES 1 Final Methicillin - resistant Staphylococcus aureus Antibiotic RSLT#1 Ciprofloxacin S Clindamycin S Erythromycin R Gentamicin S Levofloxacin S Linezolid S Oxacillin R Penicillin R Rifampin S Tetracycline S Trimethoprim/Sulfa S Vancomycin S Cath tip AEROBIC RES 1 Preliminary Staphylococcus aureus Objective Assessment Acute resp failure - reintubated. s/p bronch 12/16. staph aureus Infected port a cath with veg on port seen on CHARLI 12/16. s/p Removal 12/17. MRSA Sepsis. POA with MRSA bacteremia. 12/06 -TTE neg. CHARLI veg on port. Repeat BC 12/10 positive, 12/14 negative. MRSA pneumonia, POA Hypotension, now off pressors Pancytopenia/anemia - some better PCN allergy, reaction unknown Acute encephalopathy, improved LEONARDO h/o breast cancer, s/p chemo. Port removed Lupus on Plaquenil Recent E. coli UTI MRSA nares, 11/25, 12/06 Diarrhea. C. diff. neg 12/06 Plan Plan of Care Given thrombocytopenia (avoid Zyvox and has bacteremia)/Acute resp failure ( Avoid Dapto no lung coverage) ? ant chest rash and ? Vanc kinetics - will cont Teflaro to cover lung and blood. Monitor WBC, Cr Supportive care Trach scheduled for Friday. Per GI, peg deferred due to high risk of leakage in the setting of ascites. Dobbhoff feedings recommended. Critically ill Attending Co-Sign The patient was seen and interviewed as well as examined at the bedside. The chart was reviewed. The case was discussed. Agree with the plan of care. YOCASTA RODRÍGUEZ APRN Dec 22, 2016 08:13 AMANDA MARC MD Dec 22, 2016 12:49
[2016-12-22] MEDS: ALPRAZolam 0.25 MG TABLET PO SCH (08:21)
[2016-12-22] MEDS: HYDROCORTISONE SOD SUCC/PF 100 MG/2 ML VIAL. IV SCH (08:21)
[2016-12-22] MEDS: FUROSEMIDE 20 MG/2 ML VIAL. IVP SCH (08:22)
[2016-12-22] MEDS: FAMOTIDINE 20 MG/2 ML VIAL IVP SCH ×2 (08:23→21:07)
[2016-12-22] MEDS: buPROPion 100 MG TABLET PO SCH ×2 (08:30→21:06)
[2016-12-22] MEDS: PREGABALIN 75 MG CAPSULE PO SCH ×3 (08:31→21:06)
[2016-12-22] MEDS: CHLORHEXIDINE 0.12% 15 ML MOUTHWASH. MM SCH ×2 (09:39→21:07)
[2016-12-22] MEDS: NYSTATIN TOPICAL POWDER 15GM BOTTLE. TP SCH ×2 (09:39→21:07)
--- NOTE | 2016-12-22 10:05 | PDOC ---
PULMONARY PROGRESS NOTES Subjective awake, on CPAP Vitals Vital Signs Date Time Temp Pulse Resp B/P (MAP) Pulse Ox O2 Delivery O2 Flow Rate FiO2 12/22/16 09:58 97 Ventilator 12/22/16 06:00 74 13 140/66 (90) 12/22/16 03:00 98.1 98.1 12/21/16 18:00 3.0 General: Alert, No acute distress HEENT: Other (nc at perrl, orally intubated, nose clear... neck no lap, no thyromegaly) Lungs: Clear Cardiovascular: S1, S2 Abdomen: Soft, Non-tender Neuro Exam: Alert Extremities: Other (edema) Skin: Warm Labs Laboratory Tests Test 12/20/16 10:55 12/20/16 13:28 12/20/16 19:00 12/21/16 00:21 Stool Occult Blood Negative (NEG) Glucose (Fingerstick) 118 mg/dL (70-99) 78 mg/dL (70-99) 84 mg/dL (70-99) Test 12/21/16 06:30 12/21/16 06:33 12/21/16 12:15 12/21/16 16:43 White Blood Count 3.8 x10^3/uL (4.0-11.0) Red Blood Count 2.84 x10^6/uL (3.50-5.40) Hemoglobin 8.5 g/dL (12.0-15.5) Hematocrit 25.7 % (36.0-47.0) Mean Corpuscular Volume 91 fL (79-100) Mean Corpuscular Hemoglobin 30 pg (25-35) Mean Corpuscular Hemoglobin Concent 33 g/dL (31-37) Red Cell Distribution Width 15.7 % (11.5-14.5) Platelet Count 83 x10^3/uL (140-400) Neutrophils (%) (Auto) 78 % (31-73) Lymphocytes (%) (Auto) 16 % (24-48) Monocytes (%) (Auto) 5 % (0-9) Eosinophils (%) (Auto) 1 % (0-3) Basophils (%) (Auto) 0 % (0-3) Neutrophils # (Auto) 2.9 x10^3uL (1.8-7.7) Lymphocytes # (Auto) 0.6 x10^3/uL (1.0-4.8) Monocytes # (Auto) 0.2 x10^3/uL (0.0-1.1) Eosinophils # (Auto) 0.0 x10^3/uL (0.0-0.7) Basophils # (Auto) 0.0 x10^3/uL (0.0-0.2) Sodium Level 147 mmol/L (136-145) Potassium Level 3.4 mmol/L (3.5-5.1) Chloride Level 111 mmol/L (98-107) Carbon Dioxide Level 30 mmol/L (21-32) Anion Gap 6 (6-14) Blood Urea Nitrogen 34 mg/dL (7-20) Creatinine 1.0 mg/dL (0.6-1.0) Estimated GFR (Cockcroft-Gault) 69.7 Glucose Level 117 mg/dL (70-99) Calcium Level 8.5 mg/dL (8.5-10.1) Glucose (Fingerstick) 120 mg/dL (70-99) 131 mg/dL (70-99) 133 mg/dL (70-99) Test 12/22/16 00:25 12/22/16 05:54 12/22/16 06:00 Glucose (Fingerstick) 91 mg/dL (70-99) 114 mg/dL (70-99) White Blood Count 3.3 x10^3/uL (4.0-11.0) Red Blood Count 2.73 x10^6/uL (3.50-5.40) Hemoglobin 8.4 g/dL (12.0-15.5) Hematocrit 24.1 % (36.0-47.0) Mean Corpuscular Volume 88 fL (79-100) Mean Corpuscular Hemoglobin 31 pg (25-35) Mean Corpuscular Hemoglobin Concent 35 g/dL (31-37) Red Cell Distribution Width 15.9 % (11.5-14.5) Platelet Count 79 x10^3/uL (140-400) Neutrophils (%) (Auto) 71 % (31-73) Lymphocytes (%) (Auto) 21 % (24-48) Monocytes (%) (Auto) 7 % (0-9) Eosinophils (%) (Auto) 1 % (0-3) Basophils (%) (Auto) 1 % (0-3) Neutrophils # (Auto) 2.3 x10^3uL (1.8-7.7) Lymphocytes # (Auto) 0.7 x10^3/uL (1.0-4.8) Monocytes # (Auto) 0.2 x10^3/uL (0.0-1.1) Eosinophils # (Auto) 0.0 x10^3/uL (0.0-0.7) Basophils # (Auto) 0.0 x10^3/uL (0.0-0.2) Sodium Level 146 mmol/L (136-145) Potassium Level 3.2 mmol/L (3.5-5.1) Chloride Level 109 mmol/L (98-107) Carbon Dioxide Level 31 mmol/L (21-32) Anion Gap 6 (6-14) Blood Urea Nitrogen 34 mg/dL (7-20) Creatinine 0.9 mg/dL (0.6-1.0) Estimated GFR (Cockcroft-Gault) 78.4 Glucose Level 110 mg/dL (70-99) Calcium Level 8.3 mg/dL (8.5-10.1) Laboratory Tests Test 12/21/16 12:15 12/21/16 16:43 12/22/16 00:25 12/22/16 05:54 Glucose (Fingerstick) 131 mg/dL (70-99) 133 mg/dL (70-99) 91 mg/dL (70-99) 114 mg/dL (70-99) Test 12/22/16 06:00 White Blood Count 3.3 x10^3/uL (4.0-11.0) Red Blood Count 2.73 x10^6/uL (3.50-5.40) Hemoglobin 8.4 g/dL (12.0-15.5) Hematocrit 24.1 % (36.0-47.0) Mean Corpuscular Volume 88 fL (79-100) Mean Corpuscular Hemoglobin 31 pg (25-35) Mean Corpuscular Hemoglobin Concent 35 g/dL (31-37) Red Cell Distribution Width 15.9 % (11.5-14.5) Platelet Count 79 x10^3/uL (140-400) Neutrophils (%) (Auto) 71 % (31-73) Lymphocytes (%) (Auto) 21 % (24-48) Monocytes (%) (Auto) 7 % (0-9) Eosinophils (%) (Auto) 1 % (0-3) Basophils (%) (Auto) 1 % (0-3) Neutrophils # (Auto) 2.3 x10^3uL (1.8-7.7) Lymphocytes # (Auto) 0.7 x10^3/uL (1.0-4.8) Monocytes # (Auto) 0.2 x10^3/uL (0.0-1.1) Eosinophils # (Auto) 0.0 x10^3/uL (0.0-0.7) Basophils # (Auto) 0.0 x10^3/uL (0.0-0.2) Sodium Level 146 mmol/L (136-145) Potassium Level 3.2 mmol/L (3.5-5.1) Chloride Level 109 mmol/L (98-107) Carbon Dioxide Level 31 mmol/L (21-32) Anion Gap 6 (6-14) Blood Urea Nitrogen 34 mg/dL (7-20) Creatinine 0.9 mg/dL (0.6-1.0) Estimated GFR (Cockcroft-Gault) 78.4 Glucose Level 110 mg/dL (70-99) Calcium Level 8.3 mg/dL (8.5-10.1) Medications Active Scripts Medications Dose Route/Sig Max Daily Dose Days Date Category Oxycodone Hcl 5 Mg Tablet 5 Mg PO PRN Q6HRS PRN 11/28/16 Rx Albuterol Sulfate Neb Soln (Albuterol Sulfate) 1.25 Mg/3 Ml Vial.neb 1 Vial NEB Q6HRS 11/25/16 Reported Ranitidine Hcl 150 Mg Capsule 75 Mg PO DAILY 11/25/16 Reported Ondansetron Hcl 8 Mg Tablet 8 Mg PO DAILY 11/25/16 Reported Azithromycin Tablet (Azithromycin) 250 Mg Tablet 250 Mg PO DAILY 11/25/16 Reported Bupropion Hcl 100 Mg Tablet 100 Mg PO BID 11/25/16 Reported Nasal Allergy [place] (Cromolyn Sodium) 13 Ml [place].pump 13 Ml NS DAILY 11/25/16 Reported Gabapentin 300 Mg Capsule 300 Mg PO BID 11/25/16 Reported Hydroxyzine Hcl 25 Mg Tablet 25 Mg PO DAILY 11/25/16 Reported Nystatin 15 Gm Cream..g. 15 Gm TP BID 11/25/16 Reported Duloxetine Hcl 60 Mg Capsule.dr 60 Mg PO DAILY 11/25/16 Reported Clonidine Hcl 0.1 Mg Tablet 0.1 Mg PO DAILY 11/25/16 Reported Lisinopril 20 Mg Tablet 20 Mg PO DAILY 11/25/16 Reported Famciclovir 125 Mg Tablet 125 Mg PO DAILY 11/25/16 Reported Ropinirole Hcl 0.25 Mg Tablet 0.25 Mg PO DAILY 11/25/16 Reported Hydroxychloroquine Sulfate 200 Mg Tablet 200 Mg PO DAILY 11/25/16 Reported Lyrica (Pregabalin) 150 Mg Capsule 150 Mg PO DAILY 11/25/16 Reported Furosemide 20 Mg Tablet 20 Mg PO DAILY 11/25/16 Reported Alprazolam 0.25 Mg Tablet 0.25 Mg PO 11/25/16 Reported Oxycodone Hcl 5 Mg Tablet 5 Mg PO PRN Q4HRS PRN 11/25/16 Reported Ibuprofen 400 Mg Tablet 400 Mg PO PRN DAILY PRN 05/11/15 Reported Multivitamins (Multivitamin) 1 Each Tablet 1 Each PO DAILY 05/11/15 Reported Oxycodone-Acetaminophen 10-325 (Oxycodone Hcl/Acetaminophen) 1 Each Tablet 1 Each PO PRN Q4-6HRS PRN 05/11/15 Reported Plaquenil (Hydroxychloroquine Sulfate) 200 Mg Tablet 200 Mg PO BID 08/19/13 Reported Comments CXR REVIEWED CHF Impression . 1. Acute respiratory failure, multifactorial in etiology. THIRD INTUBATION 12/16 2. Abnormal chest x-ray secondary to volume overload, congestive heart failure , cannot exclude pneumonia. 3. Septic shock, MRSA bacteremia 4. Hypotension, resolved. 5. Pancytopenia. 6. Systemic lupus erythematosus, immunocompromised. 7. Hyponatremia. 8. Acute kidney injury. 9. History of breast cancer. 10. Hepatitis C. 11. Gastroesophageal reflux disease. 13. ACUTE Blood loss anemia 14. POSITIVE CHARLI 12/16 Plan . CPAP 24 hr as tolerated ANTIBX PER ID SUSPECT MOST OF CXR FINDINGS RELATED TO EDEMA, LASIX/ .f/u CXR SLIGHTLY WORSE RESP STATUS DETERIORATED REINTUBATED 12/16 FOR THIRD TIME. REINTUBATED 12/10, EXTUBATED 12/13 TRACH SCHEDULED FOR FRIDAY TUBE FEEDING UPPER EXT EDEMA TRANSFUSE NEEDED D/W RN/PCP JOSE ROBERTO BYRNES MD Dec 22, 2016 10:05
--- NOTE | 2016-12-22 12:08 | RAD ---
Portable abdomen, 12/22/2016: History: Abdominal pain An NG tube extends into the antral region of the stomach. The abdominal gas pattern is unremarkable. There is no evidence of organomegaly. Surgical clips are present in the right upper quadrant. Scattered degenerative changes are evident in the spine. IMPRESSION: 1. The NG tube is in satisfactory position. 2. No acute abdominal abnormality is detected.
[2016-12-22] MEDS: fentaNYL PF VIAL 100 MCG/2 ML VIAL IV PRN (15:45)
[2016-12-22] MEDS: rOPINIRole 0.25 MG TABLET. PO SCH (21:06)
[2016-12-23] VITALS (25 sets, daily range): BP systolic 106–154; BP diastolic 54–86
[2016-12-23] MEDS: PROPOFOL 100 ML IV PRN (04:47)
[2016-12-23] MEDS: CEFTAROLINE FOSAMIL 600 MG in IV NORMAL SALINE 250ML 250 ML IV SCH ×3 (04:48→22:03)
[2016-12-23] MEDS ORDERED: fentaNYL PF VIAL 100 MCG/2 ML VIAL IV PRN ×3 (06:00→06:45)
[2016-12-23] MEDS: INSULIN ASPART 300 UNITS/3 ML INSULN.PEN SQ SCH ×4 (06:00→18:00)
[2016-12-23] MEDS ORDERED: HYDROmorphone 2 MG/ML VIAL IV PRN ×2 (06:00→06:45)
[2016-12-23] MEDS ORDERED: MEPERIDINE PF 25 MG/ML VIAL. IV PRN (06:00)
[2016-12-23] MEDS ORDERED: PROCHLORPERAZINE 10 MG/2 ML VIAL. IV PRN ×2 (06:00→06:45)
[2016-12-23] MEDS ORDERED: diphenhydrAMINE 50 MG/ML VIAL IV PRN (06:00)
[2016-12-23] MEDS ORDERED: MORPHINE SULFATE 4 MG/ML DISP.SYRIN. IV PRN (06:00)
[2016-12-23 06:33] LABS: BASO % 1 % (0-3); EOS % 1 % (0-3); HEMATOCRIT 22.3 % (36.0-47.0); HEMOGLOBIN 7.4 g/dL (12.0-15.5); LYMPH # 0.7 x10^3/uL (1.0-4.8); LYMPH % 25 % (24-48); MEAN CORPUSCULAR HEMOGLOBIN 30 pg (25-35); MEAN CORPUSCULAR HGB CONC 33 g/dL (31-37); MEAN CORPUSCULAR VOLUME 91 fL (79-100); MONO % 8 % (0-9); NEUT % 66 % (31-73); PLATELET COUNT 68 x10^3/uL (140-400); RED BLOOD COUNT 2.47 x10^6/uL (3.50-5.40); RED CELL DISTRIBUTION WIDTH 16.2 % (11.5-14.5); WHITE BLOOD COUNT 2.6 x10^3/uL (4.0-11.0)
[2016-12-23 06:39] LABS: CALCIUM 8.3 mg/dL (8.5-10.1); CREATININE 0.9 mg/dL (0.6-1.0); GFR 78.4; POTASSIUM 3.2 mmol/L (3.5-5.1)
[2016-12-23] MEDS ORDERED: IV RINGERS,LACTATED 1000ML 1,000 ML IV SCH (06:41)
[2016-12-23] MEDS ORDERED: LIDOCAINE 1% 1 ML SYRINGE. ID PRN (06:45)
[2016-12-23] MEDS ORDERED: MORPHINE SULFATE 2 MG/ML DISP.SYRIN. IV PRN (06:45)
[2016-12-23 07:06] LABS: INR 1.3 (0.8-1.1); PROTHROMBIN TIME PATIENT 15.1 SEC (11.7-14.0)
[2016-12-23] MEDS: IPRATRPIUM/ALBUTEROL 0.5/2.5MG 3 ML NEBU. NEB SCH ×4 (07:25→19:07)
--- NOTE | 2016-12-23 07:50 | PDOC ---
Infectious Disease Note Subjective Subjective Remains intubated, FiO2 30%. 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 x 3, no focal neurologic deficit SKIN: No rash IV: ok Labs Lab Laboratory Tests Test 12/22/16 12:02 12/22/16 18:31 12/23/16 05:50 12/23/16 06:40 Glucose (Fingerstick) 121 mg/dL (70-99) 103 mg/dL (70-99) White Blood Count 2.6 x10^3/uL (4.0-11.0) Red Blood Count 2.47 x10^6/uL (3.50-5.40) Hemoglobin 7.4 g/dL (12.0-15.5) Hematocrit 22.3 % (36.0-47.0) Mean Corpuscular Volume 91 fL (79-100) Mean Corpuscular Hemoglobin 30 pg (25-35) Mean Corpuscular Hemoglobin Concent 33 g/dL (31-37) Red Cell Distribution Width 16.2 % (11.5-14.5) Platelet Count 68 x10^3/uL (140-400) Neutrophils (%) (Auto) 66 % (31-73) Lymphocytes (%) (Auto) 25 % (24-48) Monocytes (%) (Auto) 8 % (0-9) Eosinophils (%) (Auto) 1 % (0-3) Basophils (%) (Auto) 1 % (0-3) Neutrophils # (Auto) 1.7 x10^3uL (1.8-7.7) Lymphocytes # (Auto) 0.7 x10^3/uL (1.0-4.8) Monocytes # (Auto) 0.2 x10^3/uL (0.0-1.1) Eosinophils # (Auto) 0.0 x10^3/uL (0.0-0.7) Basophils # (Auto) 0.0 x10^3/uL (0.0-0.2) Sodium Level 145 mmol/L (136-145) Potassium Level 3.2 mmol/L (3.5-5.1) Chloride Level 109 mmol/L (98-107) Carbon Dioxide Level 30 mmol/L (21-32) Anion Gap 6 (6-14) Blood Urea Nitrogen 33 mg/dL (7-20) Creatinine 0.9 mg/dL (0.6-1.0) Estimated GFR (Cockcroft-Gault) 78.4 Glucose Level 97 mg/dL (70-99) Calcium Level 8.3 mg/dL (8.5-10.1) Prothrombin Time 15.1 SEC (11.7-14.0) Prothromb Time International Ratio 1.3 (0.8-1.1) Activated Partial Thromboplast Time 27 SEC (24-38) Micro BLOOD CULTURE PRL Final Final report BLD CULT RESULT 1 Final Staphylococcus aureus Recovered from aerobic and anaerobic bottles. Methicillin resistant (MRSA) Based on resistance to oxacillin this isolate would be resistant to all currently available beta-lactam antimicrobial agents, with the exception of the newer cephalosporins with anti-MRSA activity, such as Ceftaroline ANTIMICROBIAL SUSCEPTIBILITY Final Comment S = Susceptible; I = Intermediate; R = Resistant P = Positive; N = Negative MICS are expressed in micrograms per mL Antibiotic RSLT#1 RSLT#2 RSLT#3 RSLT#4 Ciprofloxacin S Gentamicin S Levofloxacin S Linezolid S Nitrofurantoin S Oxacillin R Penicillin R Rifampin S Tetracycline S Trimethoprim/Sulfa S Vancomycin S Performed at: [address] [id number] [place]: Evelyn Reyes MD, Phone: [phone] Objective Assessment Sepsis. POA Hypotension, now off pressor Pancytopenia PCN allergy, reaction unknown Acute encephalopathy LEONARDO Acute respiratory failure h/o breast cancer, s/p chemo. Port still in place Lupus on Plaquenil Recent E. coli UTI MRSA nares, 11/25, 12/06 and sputum Diarrhea. C. diff. neg 12/06 BC + MRSA Plan Plan of Care Given thrombocytopenia (avoid Zyvox and has bacteremia)/Acute resp failure ( Avoid Dapto no lung coverage) ? ant chest rash and ? Vanc kinetics - will cont Teflaro to cover lung and blood. Monitor WBC, Cr Supportive care Trach scheduled for Friday. Per GI, peg deferred due to high risk of leakage in the setting of ascites. Dobbhoff feedings recommended. Critically ill AMANDA MARC MD Dec 23, 2016 07:50
[2016-12-23] MEDS: CHLORHEXIDINE 0.12% 15 ML MOUTHWASH. MM SCH ×2 (08:18→22:02)
[2016-12-23] MEDS: NYSTATIN TOPICAL POWDER 15GM BOTTLE. TP SCH ×2 (08:18→22:03)
[2016-12-23] MEDS: fentaNYL PF VIAL 100 MCG/2 ML VIAL IV PRN ×4 (08:56→20:11)
[2016-12-23] MEDS: PREGABALIN 75 MG CAPSULE PO SCH ×4 (09:00→23:04)
[2016-12-23] MEDS: buPROPion 100 MG TABLET PO SCH ×2 (09:00→22:04)
[2016-12-23] MEDS: ALPRAZolam 0.25 MG TABLET PO SCH (09:00)
[2016-12-23] MEDS ORDERED: ROCURONIUM 50 MG/5 ML VIAL. ONE (09:51)
[2016-12-23] MEDS ORDERED: BUPIVACAINE-EPI 0.5%-1:200000 50 ML VIAL. ONE (09:53)
[2016-12-23] MEDS ORDERED: PROPOFOL 20 ML IV ONE (09:55)
[2016-12-23] MEDS ORDERED: SURGICEL FIBRILLAR 1X2 EACH. ONE (09:56)
[2016-12-23] MEDS ORDERED: ONDANSETRON PF 4 MG/2 ML VIAL. ONE (09:57)
[2016-12-23] MEDS ORDERED: DEXAMETHASONE SOD PHOS 20 MG/5 ML VIAL. ONE (09:57)
--- NOTE | 2016-12-23 09:59 | PDOC ---
SURGICAL PROGRESS NOTE Subjective Pre-Op Note 56 yo F with vent dependance TO OR for trach placement R/B/A d/w pt and pt's sister Vital Signs Vital Signs Date Time Temp Pulse Resp B/P (MAP) Pulse Ox O2 Delivery O2 Flow Rate FiO2 12/23/16 09:12 98 Ventilator 12/23/16 09:00 69 16 132/60 (84) 12/23/16 08:00 98.5 98.5 12/22/16 16:15 3.0 I&O Intake and Output 12/23/16 07:00 Intake Total 3678.87 ml Output Total 2525 ml Balance 1153.87 ml Intake Oral 225 ml IV Total 1050.87 ml Tube Feeding 2403 ml Output Urine Total 2525 ml Labs Laboratory Tests Test 12/21/16 12:15 12/21/16 16:43 12/22/16 00:25 12/22/16 05:54 Glucose (Fingerstick) 131 mg/dL (70-99) 133 mg/dL (70-99) 91 mg/dL (70-99) 114 mg/dL (70-99) Test 12/22/16 06:00 12/22/16 12:02 12/22/16 18:31 12/23/16 05:50 White Blood Count 3.3 x10^3/uL (4.0-11.0) 2.6 x10^3/uL (4.0-11.0) Red Blood Count 2.73 x10^6/uL (3.50-5.40) 2.47 x10^6/uL (3.50-5.40) Hemoglobin 8.4 g/dL (12.0-15.5) 7.4 g/dL (12.0-15.5) Hematocrit 24.1 % (36.0-47.0) 22.3 % (36.0-47.0) Mean Corpuscular Volume 88 fL (79-100) 91 fL (79-100) Mean Corpuscular Hemoglobin 31 pg (25-35) 30 pg (25-35) Mean Corpuscular Hemoglobin Concent 35 g/dL (31-37) 33 g/dL (31-37) Red Cell Distribution Width 15.9 % (11.5-14.5) 16.2 % (11.5-14.5) Platelet Count 79 x10^3/uL (140-400) 68 x10^3/uL (140-400) Neutrophils (%) (Auto) 71 % (31-73) 66 % (31-73) Lymphocytes (%) (Auto) 21 % (24-48) 25 % (24-48) Monocytes (%) (Auto) 7 % (0-9) 8 % (0-9) Eosinophils (%) (Auto) 1 % (0-3) 1 % (0-3) Basophils (%) (Auto) 1 % (0-3) 1 % (0-3) Neutrophils # (Auto) 2.3 x10^3uL (1.8-7.7) 1.7 x10^3uL (1.8-7.7) Lymphocytes # (Auto) 0.7 x10^3/uL (1.0-4.8) 0.7 x10^3/uL (1.0-4.8) Monocytes # (Auto) 0.2 x10^3/uL (0.0-1.1) 0.2 x10^3/uL (0.0-1.1) Eosinophils # (Auto) 0.0 x10^3/uL (0.0-0.7) 0.0 x10^3/uL (0.0-0.7) Basophils # (Auto) 0.0 x10^3/uL (0.0-0.2) 0.0 x10^3/uL (0.0-0.2) Sodium Level 146 mmol/L (136-145) 145 mmol/L (136-145) Potassium Level 3.2 mmol/L (3.5-5.1) 3.2 mmol/L (3.5-5.1) Chloride Level 109 mmol/L (98-107) 109 mmol/L (98-107) Carbon Dioxide Level 31 mmol/L (21-32) 30 mmol/L (21-32) Anion Gap 6 (6-14) 6 (6-14) Blood Urea Nitrogen 34 mg/dL (7-20) 33 mg/dL (7-20) Creatinine 0.9 mg/dL (0.6-1.0) 0.9 mg/dL (0.6-1.0) Estimated GFR (Cockcroft-Gault) 78.4 78.4 Glucose Level 110 mg/dL (70-99) 97 mg/dL (70-99) Calcium Level 8.3 mg/dL (8.5-10.1) 8.3 mg/dL (8.5-10.1) Magnesium Level 2.0 mg/dL (1.8-2.4) Glucose (Fingerstick) 121 mg/dL (70-99) 103 mg/dL (70-99) Test 12/23/16 06:40 Prothrombin Time 15.1 SEC (11.7-14.0) Prothromb Time International Ratio 1.3 (0.8-1.1) Activated Partial Thromboplast Time 27 SEC (24-38) Laboratory Tests Test 12/22/16 12:02 12/22/16 18:31 12/23/16 05:50 12/23/16 06:40 Glucose (Fingerstick) 121 mg/dL (70-99) 103 mg/dL (70-99) White Blood Count 2.6 x10^3/uL (4.0-11.0) Red Blood Count 2.47 x10^6/uL (3.50-5.40) Hemoglobin 7.4 g/dL (12.0-15.5) Hematocrit 22.3 % (36.0-47.0) Mean Corpuscular Volume 91 fL (79-100) Mean Corpuscular Hemoglobin 30 pg (25-35) Mean Corpuscular Hemoglobin Concent 33 g/dL (31-37) Red Cell Distribution Width 16.2 % (11.5-14.5) Platelet Count 68 x10^3/uL (140-400) Neutrophils (%) (Auto) 66 % (31-73) Lymphocytes (%) (Auto) 25 % (24-48) Monocytes (%) (Auto) 8 % (0-9) Eosinophils (%) (Auto) 1 % (0-3) Basophils (%) (Auto) 1 % (0-3) Neutrophils # (Auto) 1.7 x10^3uL (1.8-7.7) Lymphocytes # (Auto) 0.7 x10^3/uL (1.0-4.8) Monocytes # (Auto) 0.2 x10^3/uL (0.0-1.1) Eosinophils # (Auto) 0.0 x10^3/uL (0.0-0.7) Basophils # (Auto) 0.0 x10^3/uL (0.0-0.2) Sodium Level 145 mmol/L (136-145) Potassium Level 3.2 mmol/L (3.5-5.1) Chloride Level 109 mmol/L (98-107) Carbon Dioxide Level 30 mmol/L (21-32) Anion Gap 6 (6-14) Blood Urea Nitrogen 33 mg/dL (7-20) Creatinine 0.9 mg/dL (0.6-1.0) Estimated GFR (Cockcroft-Gault) 78.4 Glucose Level 97 mg/dL (70-99) Calcium Level 8.3 mg/dL (8.5-10.1) Prothrombin Time 15.1 SEC (11.7-14.0) Prothromb Time International Ratio 1.3 (0.8-1.1) Activated Partial Thromboplast Time 27 SEC (24-38) Problem List Problems Medical Problems: (1) Respiratory failure Status: Acute Problems: PARVEZ LOCKHART MD Dec 23, 2016 09:59
[2016-12-23] MEDS ORDERED: ePHEDrine PF IN SALINE 50 MG/5 ML DISP.SYRIN IV ONE (10:45)
[2016-12-23] MEDS ORDERED: fentaNYL PF VIAL 100 MCG/2 ML VIAL ONE (10:49)
[2016-12-23] MEDS ORDERED: GLYCOPYRROLATE 1 MG/5 ML VIAL. ONE (11:10)
[2016-12-23] MEDS ORDERED: NEOSTIGMINE METHYLSULFATE 5 MG/5 ML SYRINGE. ONE (11:10)
[2016-12-23] MEDS ORDERED: SEVOFLURANE 31 TO 60 MINUTES. IH ONE (11:12)
--- NOTE | 2016-12-23 11:19 | PDOC ---
BRIEF OPERATIVE NOTE Pre-Op Diagnosis Ventilatory dependence Post-Op Diagnosis same Procedure Performed Tracheostomy placement Surgeon David Lockhart Anesthesia Type: General, Local Blood Loss 5 Specimens Obtained none Complications none Additional Remarks 56 yo F with ventilatory dependence. TO OR for tracheostomy tube placement. R/ B/a d/w pt and pt's sister. Risks, including, but not limited to: bleeding, infection, damage to surrouding structures and risk of anesthesia. Patient and patient's sister appear to understand and they agree to proceed. After obtaining informed consent, patient was taken to the OR and induced under GETA. Patient was prepped and drapped in the the usual fashion over the anterior neck. Vertical incision was made using electrocautery. Incision was taken down through the SQ tissue using cautery. The inferior aspect of the thyroid was divided using cautery. The trachea was cleared off using cautery. The 2nd tracheal ring was identified. FiO2 was reduced. A transverse incision was made using 15 blade scapel. A size 8 cuffed shiley trach was introduced under direct vision. End tidal CO2 was detected, patient was successful ventilated and oxygenated via the trach, and breath sounds were noted bilaterally. The tracheostomy was secured in place using multiple interrupted 3 -0 nylon. A sterile dressing was place over the wound. Patient tolerated procedure well and was transferred to the ICU in a stable condition. DAVID LOCKHART MD Dec 23, 2016 11:19
--- NOTE | 2016-12-23 12:38 | PDOC ---
PULMONARY PROGRESS NOTES Subjective RETURNED FROM SURGERY A/A NO DISTRESS Vitals Vital Signs Date Time Temp Pulse Resp B/P (MAP) Pulse Ox O2 Delivery O2 Flow Rate FiO2 12/23/16 12:15 Ventilator 12/23/16 11:29 98 12/23/16 10:00 68 15 133/69 (90) 12/23/16 08:00 98.5 98.5 12/22/16 16:15 3.0 General: Alert, No acute distress HEENT: Other (TRACH 12/23) Lungs: Clear Cardiovascular: S1, S2 Abdomen: Soft, Non-tender Neuro Exam: Alert Extremities: Other (edema) Skin: Warm Labs Laboratory Tests Test 12/21/16 16:43 12/22/16 00:25 12/22/16 05:54 12/22/16 06:00 Glucose (Fingerstick) 133 mg/dL (70-99) 91 mg/dL (70-99) 114 mg/dL (70-99) White Blood Count 3.3 x10^3/uL (4.0-11.0) Red Blood Count 2.73 x10^6/uL (3.50-5.40) Hemoglobin 8.4 g/dL (12.0-15.5) Hematocrit 24.1 % (36.0-47.0) Mean Corpuscular Volume 88 fL (79-100) Mean Corpuscular Hemoglobin 31 pg (25-35) Mean Corpuscular Hemoglobin Concent 35 g/dL (31-37) Red Cell Distribution Width 15.9 % (11.5-14.5) Platelet Count 79 x10^3/uL (140-400) Neutrophils (%) (Auto) 71 % (31-73) Lymphocytes (%) (Auto) 21 % (24-48) Monocytes (%) (Auto) 7 % (0-9) Eosinophils (%) (Auto) 1 % (0-3) Basophils (%) (Auto) 1 % (0-3) Neutrophils # (Auto) 2.3 x10^3uL (1.8-7.7) Lymphocytes # (Auto) 0.7 x10^3/uL (1.0-4.8) Monocytes # (Auto) 0.2 x10^3/uL (0.0-1.1) Eosinophils # (Auto) 0.0 x10^3/uL (0.0-0.7) Basophils # (Auto) 0.0 x10^3/uL (0.0-0.2) Sodium Level 146 mmol/L (136-145) Potassium Level 3.2 mmol/L (3.5-5.1) Chloride Level 109 mmol/L (98-107) Carbon Dioxide Level 31 mmol/L (21-32) Anion Gap 6 (6-14) Blood Urea Nitrogen 34 mg/dL (7-20) Creatinine 0.9 mg/dL (0.6-1.0) Estimated GFR (Cockcroft-Gault) 78.4 Glucose Level 110 mg/dL (70-99) Calcium Level 8.3 mg/dL (8.5-10.1) Magnesium Level 2.0 mg/dL (1.8-2.4) Test 12/22/16 12:02 12/22/16 18:31 12/23/16 05:50 12/23/16 06:40 Glucose (Fingerstick) 121 mg/dL (70-99) 103 mg/dL (70-99) White Blood Count 2.6 x10^3/uL (4.0-11.0) Red Blood Count 2.47 x10^6/uL (3.50-5.40) Hemoglobin 7.4 g/dL (12.0-15.5) Hematocrit 22.3 % (36.0-47.0) Mean Corpuscular Volume 91 fL (79-100) Mean Corpuscular Hemoglobin 30 pg (25-35) Mean Corpuscular Hemoglobin Concent 33 g/dL (31-37) Red Cell Distribution Width 16.2 % (11.5-14.5) Platelet Count 68 x10^3/uL (140-400) Neutrophils (%) (Auto) 66 % (31-73) Lymphocytes (%) (Auto) 25 % (24-48) Monocytes (%) (Auto) 8 % (0-9) Eosinophils (%) (Auto) 1 % (0-3) Basophils (%) (Auto) 1 % (0-3) Neutrophils # (Auto) 1.7 x10^3uL (1.8-7.7) Lymphocytes # (Auto) 0.7 x10^3/uL (1.0-4.8) Monocytes # (Auto) 0.2 x10^3/uL (0.0-1.1) Eosinophils # (Auto) 0.0 x10^3/uL (0.0-0.7) Basophils # (Auto) 0.0 x10^3/uL (0.0-0.2) Sodium Level 145 mmol/L (136-145) Potassium Level 3.2 mmol/L (3.5-5.1) Chloride Level 109 mmol/L (98-107) Carbon Dioxide Level 30 mmol/L (21-32) Anion Gap 6 (6-14) Blood Urea Nitrogen 33 mg/dL (7-20) Creatinine 0.9 mg/dL (0.6-1.0) Estimated GFR (Cockcroft-Gault) 78.4 Glucose Level 97 mg/dL (70-99) Calcium Level 8.3 mg/dL (8.5-10.1) Prothrombin Time 15.1 SEC (11.7-14.0) Prothromb Time International Ratio 1.3 (0.8-1.1) Activated Partial Thromboplast Time 27 SEC (24-38) Laboratory Tests Test 12/22/16 18:31 12/23/16 05:50 12/23/16 06:40 Glucose (Fingerstick) 103 mg/dL (70-99) White Blood Count 2.6 x10^3/uL (4.0-11.0) Red Blood Count 2.47 x10^6/uL (3.50-5.40) Hemoglobin 7.4 g/dL (12.0-15.5) Hematocrit 22.3 % (36.0-47.0) Mean Corpuscular Volume 91 fL (79-100) Mean Corpuscular Hemoglobin 30 pg (25-35) Mean Corpuscular Hemoglobin Concent 33 g/dL (31-37) Red Cell Distribution Width 16.2 % (11.5-14.5) Platelet Count 68 x10^3/uL (140-400) Neutrophils (%) (Auto) 66 % (31-73) Lymphocytes (%) (Auto) 25 % (24-48) Monocytes (%) (Auto) 8 % (0-9) Eosinophils (%) (Auto) 1 % (0-3) Basophils (%) (Auto) 1 % (0-3) Neutrophils # (Auto) 1.7 x10^3uL (1.8-7.7) Lymphocytes # (Auto) 0.7 x10^3/uL (1.0-4.8) Monocytes # (Auto) 0.2 x10^3/uL (0.0-1.1) Eosinophils # (Auto) 0.0 x10^3/uL (0.0-0.7) Basophils # (Auto) 0.0 x10^3/uL (0.0-0.2) Sodium Level 145 mmol/L (136-145) Potassium Level 3.2 mmol/L (3.5-5.1) Chloride Level 109 mmol/L (98-107) Carbon Dioxide Level 30 mmol/L (21-32) Anion Gap 6 (6-14) Blood Urea Nitrogen 33 mg/dL (7-20) Creatinine 0.9 mg/dL (0.6-1.0) Estimated GFR (Cockcroft-Gault) 78.4 Glucose Level 97 mg/dL (70-99) Calcium Level 8.3 mg/dL (8.5-10.1) Prothrombin Time 15.1 SEC (11.7-14.0) Prothromb Time International Ratio 1.3 (0.8-1.1) Activated Partial Thromboplast Time 27 SEC (24-38) Medications Active Scripts Medications Dose Route/Sig Max Daily Dose Days Date Category Oxycodone Hcl 5 Mg Tablet 5 Mg PO PRN Q6HRS PRN 11/28/16 Rx Albuterol Sulfate Neb Soln (Albuterol Sulfate) 1.25 Mg/3 Ml Vial.neb 1 Vial NEB Q6HRS 11/25/16 Reported Ranitidine Hcl 150 Mg Capsule 75 Mg PO DAILY 11/25/16 Reported Ondansetron Hcl 8 Mg Tablet 8 Mg PO DAILY 11/25/16 Reported Azithromycin Tablet (Azithromycin) 250 Mg Tablet 250 Mg PO DAILY 11/25/16 Reported Bupropion Hcl 100 Mg Tablet 100 Mg PO BID 11/25/16 Reported Nasal Allergy [place] (Cromolyn Sodium) 13 Ml [place].pump 13 Ml NS DAILY 11/25/16 Reported Gabapentin 300 Mg Capsule 300 Mg PO BID 11/25/16 Reported Hydroxyzine Hcl 25 Mg Tablet 25 Mg PO DAILY 11/25/16 Reported Nystatin 15 Gm Cream..g. 15 Gm TP BID 11/25/16 Reported Duloxetine Hcl 60 Mg Capsule.dr 60 Mg PO DAILY 11/25/16 Reported Clonidine Hcl 0.1 Mg Tablet 0.1 Mg PO DAILY 11/25/16 Reported Lisinopril 20 Mg Tablet 20 Mg PO DAILY 11/25/16 Reported Famciclovir 125 Mg Tablet 125 Mg PO DAILY 11/25/16 Reported Ropinirole Hcl 0.25 Mg Tablet 0.25 Mg PO DAILY 11/25/16 Reported Hydroxychloroquine Sulfate 200 Mg Tablet 200 Mg PO DAILY 11/25/16 Reported Lyrica (Pregabalin) 150 Mg Capsule 150 Mg PO DAILY 11/25/16 Reported Furosemide 20 Mg Tablet 20 Mg PO DAILY 11/25/16 Reported Alprazolam 0.25 Mg Tablet 0.25 Mg PO 11/25/16 Reported Oxycodone Hcl 5 Mg Tablet 5 Mg PO PRN Q4HRS PRN 11/25/16 Reported Ibuprofen 400 Mg Tablet 400 Mg PO PRN DAILY PRN 05/11/15 Reported Multivitamins (Multivitamin) 1 Each Tablet 1 Each PO DAILY 05/11/15 Reported Oxycodone-Acetaminophen 10-325 (Oxycodone Hcl/Acetaminophen) 1 Each Tablet 1 Each PO PRN Q4-6HRS PRN 05/11/15 Reported Plaquenil (Hydroxychloroquine Sulfate) 200 Mg Tablet 200 Mg PO BID 08/19/13 Reported Impression . 1. Acute respiratory failure, multifactorial in etiology. THIRD INTUBATION 12/16 2. Abnormal chest x-ray secondary to volume overload, congestive heart failure /possible pneumonia 3. Septic shock, MRSA bacteremia 4. Hypotension, resolved. 5. Pancytopenia. 6. Systemic lupus erythematosus, immunocompromised. 7. Hyponatremia. 8. Acute kidney injury. 9. History of breast cancer. 10. Hepatitis C. 11. Gastroesophageal reflux disease. 13. ACUTE Blood loss anemia 14. POSITIVE CHARLI 12/16 Plan . S/P TRACH NUTRITION PER GI SUSPECT MOST OF CXR FINDINGS RELATED TO EDEMA, RESP STATUS DETERIORATED REINTUBATED 12/16 FOR THIRD TIME. REINTUBATED 12/10, EXTUBATED 12/13 UPPER EXT EDEMA TRANSFUSE NEEDED YASMANY HNESON MD Dec 23, 2016 12:38
--- NOTE | 2016-12-23 13:02 | PDOC ---
PROGRESS NOTES Chief Complaint Chief Complaint 1 AMS 2 Sepsis 3 MRSA bacteremia 4 Septic shock 5 Metabolic encephalopathy 6 Acute respiratory failure 7 Anemia 8 LEONARDO on CKD2-3 9 Hyponatremia 10 Hypokalemia 11 HCV cirrhosis 12 DM 13 SLE 14 Knee pain 15 Petechial rash 16 Hypoalbuminemia 17 Malnutrition 18 Urinary tract infection, E.coli, pansensitive 19 Hx breast CA History of Present Illness History of Present Illness The patient has had a tracheotomy put in place. Patient is communicating with arm movements, writing and gestures. Vitals Vitals Vital Signs Date Time Temp Pulse Resp B/P (MAP) Pulse Ox O2 Delivery O2 Flow Rate FiO2 12/23/16 12:15 Ventilator 12/23/16 11:29 98 12/23/16 10:00 68 15 133/69 (90) 12/23/16 08:00 98.5 98.5 12/22/16 16:15 3.0 Physical Exam General: Alert, Oriented X3, Cooperative, No acute distress Heart: Regular rate, Other (3 out of 6 systolic murmur) Lungs: Clear Abdomen: Normal bowel sounds, Soft, No tenderness Extremities: No clubbing, Other (2+ edema) Skin: Other (few small echymoses over UE) Labs LABS Laboratory Tests Test 12/22/16 18:31 12/23/16 05:50 12/23/16 06:40 Glucose (Fingerstick) 103 mg/dL (70-99) White Blood Count 2.6 x10^3/uL (4.0-11.0) Red Blood Count 2.47 x10^6/uL (3.50-5.40) Hemoglobin 7.4 g/dL (12.0-15.5) Hematocrit 22.3 % (36.0-47.0) Mean Corpuscular Volume 91 fL (79-100) Mean Corpuscular Hemoglobin 30 pg (25-35) Mean Corpuscular Hemoglobin Concent 33 g/dL (31-37) Red Cell Distribution Width 16.2 % (11.5-14.5) Platelet Count 68 x10^3/uL (140-400) Neutrophils (%) (Auto) 66 % (31-73) Lymphocytes (%) (Auto) 25 % (24-48) Monocytes (%) (Auto) 8 % (0-9) Eosinophils (%) (Auto) 1 % (0-3) Basophils (%) (Auto) 1 % (0-3) Neutrophils # (Auto) 1.7 x10^3uL (1.8-7.7) Lymphocytes # (Auto) 0.7 x10^3/uL (1.0-4.8) Monocytes # (Auto) 0.2 x10^3/uL (0.0-1.1) Eosinophils # (Auto) 0.0 x10^3/uL (0.0-0.7) Basophils # (Auto) 0.0 x10^3/uL (0.0-0.2) Sodium Level 145 mmol/L (136-145) Potassium Level 3.2 mmol/L (3.5-5.1) Chloride Level 109 mmol/L (98-107) Carbon Dioxide Level 30 mmol/L (21-32) Anion Gap 6 (6-14) Blood Urea Nitrogen 33 mg/dL (7-20) Creatinine 0.9 mg/dL (0.6-1.0) Estimated GFR (Cockcroft-Gault) 78.4 Glucose Level 97 mg/dL (70-99) Calcium Level 8.3 mg/dL (8.5-10.1) Prothrombin Time 15.1 SEC (11.7-14.0) Prothromb Time International Ratio 1.3 (0.8-1.1) Activated Partial Thromboplast Time 27 SEC (24-38) Review of Systems Review of Systems denies knee pain denies headache Assessment and Plan Assessmemt and Plan Assessment: 1 AMS 2 Sepsis 3 MRSA bacteremia 4 Septic shock 5 Metabolic encephalopathy 6 Acute respiratory failure 7 Anemia 8 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 Trach was performed today will monitor for complications 2. WBC now stable ~4, plts ~80, prob reflecting untreated HCV; recheck BMP and CBC tomorrow 3. Na 145 today, lasix decreased to 20 mg po qd 4. K 3.2 today, 40 meq IV 5. Plaquenil for SLE held 6. cont Teflaro per ID for blood and pulm coverage 7. DM well controlled, glucose 110 today 8. continue PO/TD meds for knee pain 9. continue nystatin powder for petechial rash in intertrichial folds 10. discussed with nurses and family plan of care 11. consider PEG in future 12. Treated urinary tract infection, E.coli, pansensitive. Cont to monitor for changes in status 13. Appreciate subspecialty input 14. Start procalamine 75 ml/hr 15. Dispo: to LTAC post trach and Dobbhoff placement Problems: Comment Review of Relevant I have reviewed the following items anselmo (where applicable) has been applied. Labs Laboratory Tests Test 12/21/16 16:43 12/22/16 00:25 12/22/16 05:54 12/22/16 06:00 Glucose (Fingerstick) 133 mg/dL (70-99) 91 mg/dL (70-99) 114 mg/dL (70-99) White Blood Count 3.3 x10^3/uL (4.0-11.0) Red Blood Count 2.73 x10^6/uL (3.50-5.40) Hemoglobin 8.4 g/dL (12.0-15.5) Hematocrit 24.1 % (36.0-47.0) Mean Corpuscular Volume 88 fL (79-100) Mean Corpuscular Hemoglobin 31 pg (25-35) Mean Corpuscular Hemoglobin Concent 35 g/dL (31-37) Red Cell Distribution Width 15.9 % (11.5-14.5) Platelet Count 79 x10^3/uL (140-400) Neutrophils (%) (Auto) 71 % (31-73) Lymphocytes (%) (Auto) 21 % (24-48) Monocytes (%) (Auto) 7 % (0-9) Eosinophils (%) (Auto) 1 % (0-3) Basophils (%) (Auto) 1 % (0-3) Neutrophils # (Auto) 2.3 x10^3uL (1.8-7.7) Lymphocytes # (Auto) 0.7 x10^3/uL (1.0-4.8) Monocytes # (Auto) 0.2 x10^3/uL (0.0-1.1) Eosinophils # (Auto) 0.0 x10^3/uL (0.0-0.7) Basophils # (Auto) 0.0 x10^3/uL (0.0-0.2) Sodium Level 146 mmol/L (136-145) Potassium Level 3.2 mmol/L (3.5-5.1) Chloride Level 109 mmol/L (98-107) Carbon Dioxide Level 31 mmol/L (21-32) Anion Gap 6 (6-14) Blood Urea Nitrogen 34 mg/dL (7-20) Creatinine 0.9 mg/dL (0.6-1.0) Estimated GFR (Cockcroft-Gault) 78.4 Glucose Level 110 mg/dL (70-99) Calcium Level 8.3 mg/dL (8.5-10.1) Magnesium Level 2.0 mg/dL (1.8-2.4) Test 12/22/16 12:02 12/22/16 18:31 12/23/16 05:50 12/23/16 06:40 Glucose (Fingerstick) 121 mg/dL (70-99) 103 mg/dL (70-99) White Blood Count 2.6 x10^3/uL (4.0-11.0) Red Blood Count 2.47 x10^6/uL (3.50-5.40) Hemoglobin 7.4 g/dL (12.0-15.5) Hematocrit 22.3 % (36.0-47.0) Mean Corpuscular Volume 91 fL (79-100) Mean Corpuscular Hemoglobin 30 pg (25-35) Mean Corpuscular Hemoglobin Concent 33 g/dL (31-37) Red Cell Distribution Width 16.2 % (11.5-14.5) Platelet Count 68 x10^3/uL (140-400) Neutrophils (%) (Auto) 66 % (31-73) Lymphocytes (%) (Auto) 25 % (24-48) Monocytes (%) (Auto) 8 % (0-9) Eosinophils (%) (Auto) 1 % (0-3) Basophils (%) (Auto) 1 % (0-3) Neutrophils # (Auto) 1.7 x10^3uL (1.8-7.7) Lymphocytes # (Auto) 0.7 x10^3/uL (1.0-4.8) Monocytes # (Auto) 0.2 x10^3/uL (0.0-1.1) Eosinophils # (Auto) 0.0 x10^3/uL (0.0-0.7) Basophils # (Auto) 0.0 x10^3/uL (0.0-0.2) Sodium Level 145 mmol/L (136-145) Potassium Level 3.2 mmol/L (3.5-5.1) Chloride Level 109 mmol/L (98-107) Carbon Dioxide Level 30 mmol/L (21-32) Anion Gap 6 (6-14) Blood Urea Nitrogen 33 mg/dL (7-20) Creatinine 0.9 mg/dL (0.6-1.0) Estimated GFR (Cockcroft-Gault) 78.4 Glucose Level 97 mg/dL (70-99) Calcium Level 8.3 mg/dL (8.5-10.1) Prothrombin Time 15.1 SEC (11.7-14.0) Prothromb Time International Ratio 1.3 (0.8-1.1) Activated Partial Thromboplast Time 27 SEC (24-38) Laboratory Tests Test 12/22/16 18:31 12/23/16 05:50 12/23/16 06:40 Glucose (Fingerstick) 103 mg/dL (70-99) White Blood Count 2.6 x10^3/uL (4.0-11.0) Red Blood Count 2.47 x10^6/uL (3.50-5.40) Hemoglobin 7.4 g/dL (12.0-15.5) Hematocrit 22.3 % (36.0-47.0) Mean Corpuscular Volume 91 fL (79-100) Mean Corpuscular Hemoglobin 30 pg (25-35) Mean Corpuscular Hemoglobin Concent 33 g/dL (31-37) Red Cell Distribution Width 16.2 % (11.5-14.5) Platelet Count 68 x10^3/uL (140-400) Neutrophils (%) (Auto) 66 % (31-73) Lymphocytes (%) (Auto) 25 % (24-48) Monocytes (%) (Auto) 8 % (0-9) Eosinophils (%) (Auto) 1 % (0-3) Basophils (%) (Auto) 1 % (0-3) Neutrophils # (Auto) 1.7 x10^3uL (1.8-7.7) Lymphocytes # (Auto) 0.7 x10^3/uL (1.0-4.8) Monocytes # (Auto) 0.2 x10^3/uL (0.0-1.1) Eosinophils # (Auto) 0.0 x10^3/uL (0.0-0.7) Basophils # (Auto) 0.0 x10^3/uL (0.0-0.2) Sodium Level 145 mmol/L (136-145) Potassium Level 3.2 mmol/L (3.5-5.1) Chloride Level 109 mmol/L (98-107) Carbon Dioxide Level 30 mmol/L (21-32) Anion Gap 6 (6-14) Blood Urea Nitrogen 33 mg/dL (7-20) Creatinine 0.9 mg/dL (0.6-1.0) Estimated GFR (Cockcroft-Gault) 78.4 Glucose Level 97 mg/dL (70-99) Calcium Level 8.3 mg/dL (8.5-10.1) Prothrombin Time 15.1 SEC (11.7-14.0) Prothromb Time International Ratio 1.3 (0.8-1.1) Activated Partial Thromboplast Time 27 SEC (24-38) Microbiology 12/14/16 Blood Culture - Final, Complete NO GROWTH AFTER 5 DAYS 12/09/16 Stool Culture - Final, Complete 12/09/16 Stool Culture Result 1 (LUCINA) - Final, Complete 12/09/16 Campylobacter Antigen Assay - Final, Complete 12/09/16 Campylobactor Result 1 - Final, Complete 12/09/16 Shiga Toxin Test - Final, Complete 12/17/16 Gram Stain - Final, Complete 12/06/16 Urine Culture - Final, Complete 12/06/16 Urine Culture Result 1 (LUCINA) - Final, Complete 12/17/16 Gram Stain - Final, Complete Medications Current Medications Sodium Chloride 1,000 ml @ 1,000 mls/hr 1X ONCE IV Last administered on 16:18; Start 12/06/16 at 16:15; Stop 12/06/16 at 17:14; Status DC Vancomycin HCl (Vanco Per Pharmacy) 1 each PRN DAILY PRN MC SEE COMMENTS Last administered on 12/15/16 15:18; Start 12/06/16 at 17:00; Stop 12/16/16 at 09:58 ; Status DC Levofloxacin/ Dextrose 150 ml @ 100 mls/hr 1X ONCE IV Last administered on 20:04; Start 12/06/16 at 17:00; Stop 12/06/16 at 18:29; Status DC Vancomycin HCl 2 gm/Sodium Chloride 500 ml @ 250 mls/hr 1X ONCE IV Last administered on 12/06/16 17:11; Start 12/06/16 at 17:00; Stop 12/06/16 at 18:59 ; Status DC Sodium Chloride 1,000 ml @ 1,000 mls/hr 1X ONCE IV Last administered on 17:09; Start 12/06/16 at 17:00; Stop 12/06/16 at 17:59; Status DC Meropenem 500 mg/ Sodium Chloride 50 ml @ 100 mls/hr Q8HRS IV Last administered on 12/10/16 07:30; Start 12/06/16 at 18:00; Stop 12/10/16 at 08:13 ; Status DC Dopamine HCl/ Dextrose 250 ml @ 16.414 mls/ hr 1X ONCE IV Last administered on 12/06/16 17:41; Start 12/06/16 at 17:15; Stop 12/07/16 at 08:28; Status DC Etomidate (Amidate) 20 mg 1X ONCE IV Last administered on 12/06/16 17:19; Start 12/06/16 at 17:15; Stop 12/06/16 at 17:17; Status DC Succinylcholine Chloride (Anectine) 100 mg 1X ONCE IV Last administered on 17:20; Start 12/06/16 at 17:15; Stop 12/06/16 at 17:17; Status DC Vancomycin HCl 1.25 gm/Sodium Chloride 250 ml @ 167 mls/hr Q24H IV Last administered on 12/07/16 18:39; Start 12/07/16 at 17:00; Stop 12/07/16 at 23:00 ; Status DC Vancomycin HCl 1 each 1X ONCE MC ; Start 12/07/16 at 16:30; Stop 12/07/16 at 16 :31; Status Cancel Midazolam HCl 100 ml @ As Directed STK-MED ONCE IV ; Start 12/06/16 at 17:36; Stop 12/06/16 at 17:37; Status DC Midazolam HCl (Versed) 5 mg STK-MED ONCE .ROUTE ; Start 12/06/16 at 17:37; Stop 12/06/16 at 17:38; Status DC Midazolam HCl (Versed) 5 mg PRN Q10MIN PRN IV SEDATION; Start 12/06/16 at 17:45 ; Stop 12/21/16 at 11:15; Status DC Hydrocortisone Sodium Succinate (Solu-CORTEF) 100 mg Q8HRS IV Last administered on 12/09/16 13:55; Start 12/06/16 at 18:30; Stop 12/09/16 at 16:21 ; Status DC Norepinephrine Bitartrate 16 mg/ Sodium Chloride 266 ml @ 0 mls/hr CONT PRN IV SEE I/O RECORD; Start 12/06/16 at 19:00; Status UNV Pantoprazole Sodium (Protonix Vial) 40 mg DAILYAC IVP Last administered on 12/15 08:40; Start 12/06/16 at 19:30; Stop 12/15/16 at 10:35; Status DC Acetaminophen (Tylenol) 325 mg PRN Q6HRS PRN PO MILD PAIN / TEMP; Start at 19:00; Stop 12/21/16 at 11:15; Status DC Hydralazine HCl (Apresoline) 10 mg PRN Q4HRS PRN IVP ELEVATED BP, SEE COMMENTS Last administered on 12/17/16 12:26; Start 12/06/16 at 19:00 Ondansetron HCl (Zofran) 4 mg PRN Q8HRS PRN IV NAUSEA/VOMITING; Start 12/06/16 at 19:00; Stop 12/12/16 at 08:31; Status DC Albuterol Sulfate (Ventolin Neb Soln) 2.5 mg PRN Q4HRS PRN NEB SHORTNESS OF BREATH Last administered on 12/16/16 00:43; Start 12/06/16 at 19:00 Norepinephrine Bitartrate 250 ml @ 1.875 mls/ hr CONT PRN IV SEE I/O RECORD Last administered on 12/06/16 19:55; Start 12/06/16 at 19:00; Stop 12/15/16 at 10:33; Status DC Sodium Chloride 1,000 ml @ 1,000 mls/hr 1X ONCE IV Last administered on 19:56; Start 12/06/16 at 19:15; Stop 12/06/16 at 20:14; Status DC Sodium Chloride 1,000 ml @ 75 mls/hr [id number] IV Last administered on 21:55; Start 12/06/16 at 19:15; Stop 12/09/16 at 18:44; Status DC Pneumococcal Polyvalent Vaccine (Do NOT chart on this placeholder) 1 each PRN DAILY PRN MC PT UNABLE TO RESPOND; Start 12/07/16 at 09:30; Status Cancel Pneumococcal Polyvalent Vaccine (Pneumovax 23) 0.5 ml ONCE ONCE VAX IM ; Start 12/08/16 at 09:00; Stop 12/08/16 at 09:01; Status DC Albuterol/ Ipratropium (Duoneb) 3 ml RTQID NEB Last administered on 12/23/16 11 :29; Start 12/07/16 at 12:00 Midazolam HCl 100 ml @ 0 mls/hr CONT PRN IV SEE I/O RECORD Last administered on 12/07/16 10:29; Start 12/07/16 at 10:15; Stop 12/13/16 at 20:41; Status DC Fentanyl Citrate (Fentanyl 2ml Vial) 25 mcg PRN Q1HR PRN IV PAIN Last administered on 12/23/16 12:15; Start 12/07/16 at 10:45 Pantoprazole Sodium (Protonix Vial) 40 mg DAILYAC IVP ; Start 12/07/16 at 17:00 ; Status Cancel Vancomycin HCl 1.25 gm/Sodium Chloride 250 ml @ 167 mls/hr Q12H IV Last administered on 12/13/16 18:25; Start 12/08/16 at 06:00; Stop 12/13/16 at 18:54 ; Status DC Vancomycin HCl 1 each 1X ONCE MC ; Start 12/08/16 at 17:30; Stop 12/08/16 at 17 :31; Status DC Vancomycin HCl 1 gm/Sodium Chloride 250 ml @ 250 mls/hr Q12H IV ; Start at 18:00; Status Cancel Chlorhexidine Gluconate (Peridex) 15 ml BID SWSP ; Start 12/09/16 at 21:00; Stop 12/10/16 at 07:23; Status DC Hydrocortisone Sodium Succinate (Solu-CORTEF) 100 mg Q12HR IV Last administered on 12/14/16 08:53; Start 12/09/16 at 21:00; Stop 12/14/16 at 16:52 ; Status DC Amino Acids/ Glycerin/ Electrolytes 1,000 ml @ 40 mls/hr Q24H IV Last administered on 12/09/16 17:56; Start 12/09/16 at 17:00; Stop 12/10/16 at 14:16 ; Status DC Alprazolam (Xanax) 0.25 mg DAILY PO Last administered on 12/22/16 08:21; Start 12/10/16 at 09:00 Bupropion HCl (Wellbutrin) 100 mg BID PO Last administered on 12/22/16 21:06; Start 12/09/16 at 21:00 Gabapentin (Neurontin) 300 mg BID PO ; Start 12/09/16 at 21:00; Status Cancel Ropinirole HCl (Requip) 0.25 mg QHS PO Last administered on 12/22/16 21:06; Start 12/09/16 at 21:00 Pregabalin (Lyrica) 150 mg DAILY PO Last administered on 12/19/16 08:16; Start 12/10/16 at 09:00; Stop 12/19/16 at 18:41; Status DC Epinephrine (S2 Racepinephrine) 0.5 ml 1X ONCE NEB Last administered on 07:45; Start 12/10/16 at 07:45; Stop 12/10/16 at 07:46; Status DC Lorazepam (Ativan) 2 mg 1X ONCE IV Last administered on 12/10/16 08:33; Start 12/10/16 at 08:00; Stop 12/10/16 at 08:01; Status DC Succinylcholine Chloride (Anectine) 200 mg STK-MED ONCE .ROUTE ; Start 12/10/16 at 10:28; Stop 12/10/16 at 10:29; Status DC Propofol 100 ml @ As Directed STK-MED ONCE IV ; Start 12/10/16 at 10:28; Stop 12/10/16 at 10:29; Status DC Calcium Gluconate (Calcium Gluconate) 1,000 mg 1X ONCE IVP Last administered on 12/10/16 11:41; Start 12/10/16 at 11:30; Stop 12/10/16 at 11:31; Status DC Succinylcholine Chloride (Anectine) 200 mg 1X ONCE IV Last administered on 11:41; Start 12/10/16 at 11:30; Stop 12/10/16 at 11:31; Status DC Propofol 100 ml @ 0 mls/hr CONT PRN IV SEE I/O RECORD Last administered on 12/13 00:57; Start 12/10/16 at 11:30; Stop 12/13/16 at 20:41; Status DC Insulin Aspart (NovoLOG) 0-5 UNITS TIDWMEALS SQ ; Start 12/11/16 at 08:00; Stop 12/11/16 at 08:00; Status DC Dextrose (Dextrose 50%-Water Syringe) 12.5 gm PRN Q15MIN PRN IV SEE COMMENTS; Start 12/10/16 at 20:30 Insulin Aspart (NovoLOG) 0-5 UNITS Q6HRS SQ Last administered on 12/19/16 11: 57; Start 12/11/16 at 00:00 Chlorhexidine Gluconate (Peridex) 15 ml BID MM Last administered on 12/13/16 09:46; Start 12/11/16 at 21:00; Stop 12/13/16 at 20:41; Status DC Fentanyl Citrate (Fentanyl 2ml Vial) 25 mcg PRN Q5MIN PRN IV MILD PAIN; Start 12/12/16 at 07:00; Stop 12/13/16 at 06:59; Status DC Fentanyl Citrate (Fentanyl 2ml Vial) 50 mcg PRN Q5MIN PRN IV MODERATE PAIN; Start 12/12/16 at 07:00; Stop 12/13/16 at 06:59; Status DC Morphine Sulfate 1 mg PRN Q10MIN PRN IV SEVERE PAIN; Start 12/12/16 at 07:00; Stop 12/13/16 at 06:59; Status DC Ringer's Solution 1,000 ml @ 30 mls/hr Q24H IV ; Start 12/12/16 at 07:00; Stop 12/12/16 at 18:59; Status DC Lidocaine HCl 2 ml PRN 1X PRN ID PRIOR TO IV START; Start 12/12/16 at 07:00; Stop 12/13/16 at 06:59; Status DC Hydromorphone HCl (Dilaudid) 0.5 mg PRN Q10MIN PRN IV SEV PAIN, Second choice; Start 12/12/16 at 07:00; Stop 12/13/16 at 06:59; Status DC Prochlorperazine Edisylate (Compazine) 5 mg PACU PRN PRN IV NAUSEA, MRX1; Start 12/12/16 at 07:00; Stop 12/13/16 at 06:59; Status DC Lidocaine HCl (Lidocaine Pf 2% Vial) 5 ml STK-MED ONCE .ROUTE ; Start 12/12/16 at 08:15; Stop 12/12/16 at 08:16; Status DC Propofol 0 ml @ As Directed STK-MED ONCE IV ; Start 12/12/16 at 08:15; Stop at 08:16; Status DC Ondansetron HCl (Zofran) 4 mg PRN Q6HRS PRN IV NAUSEA/VOMITING Last administered on 12/14/16 01:41; Start 12/12/16 at 19:00 Acetaminophen (Tylenol) 650 mg PRN Q6HRS PRN PEG MILD PAIN / TEMP Last administered on 12/15/16 17:25; Start 12/12/16 at 08:30 Vancomycin HCl 1 each 1X ONCE MC Last administered on 12/13/16 10:00; Start 12/13/16 at 10:00; Stop 12/13/16 at 10:01; Status DC Furosemide (Lasix) 40 mg 1X ONCE IVP Last administered on 12/13/16 11:31; Start 12/13/16 at 11:15; Stop 12/13/16 at 11:16; Status DC Amino Acids/ Glycerin/ Electrolytes 1,000 ml @ 75 mls/hr [id number] IV Last administered on 12/15/16 04:25; Start 12/13/16 at 21:00; Stop 12/15/16 at 10:33 ; Status DC Vancomycin HCl 1 each 1X ONCE MC Last administered on 12/14/16 09:00; Start 12/14/16 at 09:00; Stop 12/14/16 at 09:01; Status DC Vancomycin HCl 1 each 1X ONCE MC ; Start 12/15/16 at 06:00; Stop 12/15/16 at 06 :01; Status Cancel Vancomycin HCl 1 each 1X ONCE MC Last administered on 12/15/16 06:00; Start 12/15/16 at 06:00; Stop 12/15/16 at 06:01; Status DC Alteplase, Recombinant (Cathflo) 2 mg 1X ONCE INT CAT Last administered on 14:58; Start 12/14/16 at 14:30; Stop 12/14/16 at 14:34; Status DC Hydrocortisone Sodium Succinate (Solu-CORTEF) 100 mg DAILY IV Last administered on 12/19/16 08:17; Start 12/15/16 at 09:00; Stop 12/19/16 at 10:04 ; Status DC Haloperidol Lactate (Haldol) 2.5 mg PRN Q4HRS PRN IVP AGITATION Last administered on 12/15/16 20:35; Start 12/15/16 at 06:45 Lansoprazole (Prevacid) 30 mg DAILYAC FT ; Start 12/16/16 at 07:30; Stop at 10:00; Status DC Vancomycin HCl 1 gm/Sodium Chloride 250 ml @ 250 mls/hr Q48H IV ; Start at 21:00; Status Cancel Morphine Sulfate 2 mg PRN Q2HR PRN IV SEVERE PAIN Last administered on 09:51; Start 12/15/16 at 21:15; Stop 12/21/16 at 11:15; Status DC Zolpidem Tartrate (Ambien) 5 mg PRN QHS PRN PO INSOMNIA Last administered on 00:17; Start 12/16/16 at 00:00 Propofol 100 ml @ As Directed STK-MED ONCE IV ; Start 12/16/16 at 02:34; Stop 12/16/16 at 02:35; Status DC Succinylcholine Chloride (Anectine) 200 mg STK-MED ONCE .ROUTE ; Start 12/16/16 at 02:57; Stop 12/16/16 at 02:58; Status DC Succinylcholine Chloride (Anectine) 200 mg STK-MED ONCE .ROUTE ; Start 12/16/16 at 02:57; Stop 12/16/16 at 02:58; Status DC Etomidate (Amidate) 20 mg STK-MED ONCE IV ; Start 12/16/16 at 02:58; Stop at 02:59; Status DC Propofol 100 ml @ 0 mls/hr CONT PRN IV SEE I/O RECORD; Start 12/16/16 at 04:15 ; Stop 12/16/16 at 08:04; Status DC Chlorhexidine Gluconate (Peridex) 15 ml BID MM Last administered on 12/23/16 08 :18; Start 12/16/16 at 09:00 Propofol (Diprivan) 1,000 mg STK-MED ONCE IV ; Start 12/16/16 at 03:00; Stop at 07:11; Status DC Furosemide (Lasix) 40 mg DAILY IVP Last administered on 12/21/16 09:03; Start 12/16/16 at 09:00; Stop 12/21/16 at 11:02; Status DC Ceftaroline Fosamil 600 mg/ Sodium Chloride 250 ml @ 250 mls/hr Q8HRS IV Last administered on 12/23/16 04:48; Start 12/16/16 at 10:00 Famotidine (Pepcid) 20 mg BID IVP Last administered on 12/22/16 21:07; Start at 10:30 Propofol 100 ml @ 0 mls/hr CONT PRN IV PER PROTOCOL Last administered on 04:47; Start 12/16/16 at 06:45 Fentanyl Citrate (Fentanyl 2ml Vial) 25 mcg PRN Q5MIN PRN IV MILD PAIN; Start 12/16/16 at 12:45; Stop 12/17/16 at 12:44; Status DC Fentanyl Citrate (Fentanyl 2ml Vial) 50 mcg PRN Q5MIN PRN IV MODERATE PAIN; Start 12/16/16 at 12:45; Stop 12/17/16 at 12:44; Status DC Morphine Sulfate 1 mg PRN Q10MIN PRN IV SEVERE PAIN; Start 12/16/16 at 12:45; Stop 12/17/16 at 12:44; Status DC Ringer's Solution 1,000 ml @ 30 mls/hr Q24H IV ; Start 12/16/16 at 12:32; Stop 12/17/16 at 00:31; Status DC Lidocaine HCl 2 ml PRN 1X PRN ID PRIOR TO IV START; Start 12/16/16 at 12:45; Stop 12/17/16 at 12:44; Status DC Hydromorphone HCl (Dilaudid) 0.5 mg PRN Q10MIN PRN IV SEV PAIN, Second choice; Start 12/16/16 at 12:45; Stop 12/17/16 at 12:44; Status DC Prochlorperazine Edisylate (Compazine) 5 mg PACU PRN PRN IV NAUSEA, MRX1; Start 12/16/16 at 12:45; Stop 12/17/16 at 12:44; Status DC Dextrose/Sodium Chloride 1,000 ml @ 50 mls/hr Q20H IV ; Start 12/16/16 at 13:00 ; Stop 12/16/16 at 13:38; Status DC Potassium Chloride (KCl Oral Soln) 20 meq 1X ONCE PEG Last administered on 11:28; Start 12/17/16 at 11:00; Stop 12/17/16 at 11:01; Status DC Lidocaine/Sodium Bicarbonate (Buffered Lidocaine 1%) 20 ml STK-MED ONCE IJ ; Start 12/17/16 at 14:48; Stop 12/17/16 at 14:49; Status DC Heparin Sodium/ Sodium Chloride 500 ml @ As Directed STK-MED ONCE .ROUTE ; Start 12/17/16 at 14:48; Stop 12/17/16 at 14:49; Status DC Lidocaine/Sodium Bicarbonate (Buffered Lidocaine 1%) 3 ml 1X ONCE IJ Last administered on 12/17/16 16:01; Start 12/17/16 at 15:15; Stop 12/17/16 at 15:16 ; Status DC Heparin Sodium/ Sodium Chloride 60 unit 1X ONCE IV Last administered on 16:02; Start 12/17/16 at 15:15; Stop 12/17/16 at 15:16; Status DC Lidocaine/ Epinephrine (Xylocaine 1%-Epi 1:100,000) 10 ml 1X ONCE INJ Last administered on 12/17/16 16:01; Start 12/17/16 at 15:15; Stop 12/17/16 at 15:16 ; Status DC Gelatin (Gelfoam Size 12-7mm) 1 each STK-MED ONCE .ROUTE ; Start 12/17/16 at 15 :01; Stop 12/17/16 at 15:02; Status DC Iohexol (Omnipaque 300 Mg/ml) 75 ml 1X ONCE IV ; Start 12/18/16 at 14:00; Stop 12/18/16 at 14:01; Status DC Info (Do NOT chart on this entry -- for MONITORING) 1 each PRN DAILY PRN MC SEE COMMENTS; Start 12/18/16 at 14:00; Stop 12/20/16 at 13:59; Status DC Potassium Chloride (Klor-Con) 40 meq Q2H PO Last administered on 12/19/16 14: 51; Start 12/19/16 at 10:00; Stop 12/19/16 at 12:01; Status DC Hydrocortisone Sodium Succinate (Solu-CORTEF) 50 mg DAILY IV Last administered on 12/22/16 08:21; Start 12/20/16 at 09:00 Potassium Chloride 20 meq/ Sodium Chloride 510 ml @ 500 mls/hr 1X ONCE IV Last administered on 12/19/16 11:42; Start 12/19/16 at 11:00; Stop 12/19/16 at 12:01; Status DC Nystatin (Nystop) 1 jimenez BID TP Last administered on 12/23/16 08:18; Start 12/19 at 21:00 Pregabalin (Lyrica) 75 mg [id number] PO Last administered on 12/22/16 21:06; Start 12/19/16 at 21:00 Sodium Chloride 1,000 ml @ 100 mls/hr 1X ONCE IV Last administered on 00:28; Start 12/20/16 at 00:15; Stop 12/20/16 at 10:14; Status DC Fentanyl Citrate (Fentanyl 2ml Vial) 50 mcg PRN Q5MIN PRN IV Acute Pain; Start 12/23/16 at 06:00; Stop 12/23/16 at 06:00; Status DC Morphine Sulfate 4 mg PRN Q10MIN PRN IV Moderate Pain; Start 12/23/16 at 06:00; Stop 12/23/16 at 06:00; Status DC Hydromorphone HCl (Dilaudid) 0.4 mg PRN Q10MIN PRN IV Moderate to severe pain; Start 12/23/16 at 06:00; Stop 12/23/16 at 06:00; Status DC Meperidine HCl (Demerol) 12.5 mg PRN Q5MIN PRN IV SHIVERING; Start 12/23/16 at 06:00; Stop 12/23/16 at 06:00; Status DC Prochlorperazine Edisylate (Compazine) 5 mg PRN Q6HRS PRN IV Nausea/Vomiting, 1st Choice; Start 12/23/16 at 06:00; Stop 12/23/16 at 15:00 Diphenhydramine HCl (Benadryl) 12.5 mg PRN Q2HR PRN IV ITCHING; Start 12/23/16 at 06:00; Stop 12/23/16 at 15:00 Furosemide (Lasix) 20 mg DAILY IVP Last administered on 12/22/16 08:22; Start 12/22/16 at 09:00 Acetaminophen/ Hydrocodone Bitart (Lortab 7.5-325/ 15ml Oral Solution) 10 ml PRN Q6HRS PRN PO PAIN; Start 12/21/16 at 11:15 Multi-Ingredient Ointment (Analgesic Nelson) 1 jimenez PRN QID PRN TP MUSCLE PAIN Last administered on 12/22/16 21:07; Start 12/21/16 at 11:15 Potassium Chloride 50 ml @ 25 mls/hr Q2H IV Last administered on 12/21/16 16:06 ; Start 12/21/16 at 12:00; Stop 12/21/16 at 15:59; Status DC Potassium Chloride (KCl Oral Soln) 40 meq 1X ONCE PO Last administered on 08:20; Start 12/22/16 at 07:45; Stop 12/22/16 at 07:47; Status DC Fentanyl Citrate (Fentanyl 2ml Vial) 25 mcg PRN Q5MIN PRN IV MILD PAIN; Start 12/23/16 at 06:45; Stop 12/24/16 at 06:44 Fentanyl Citrate (Fentanyl 2ml Vial) 50 mcg PRN Q5MIN PRN IV MODERATE PAIN; Start 12/23/16 at 06:45; Stop 12/24/16 at 06:44 Morphine Sulfate 1 mg PRN Q10MIN PRN IV SEVERE PAIN; Start 12/23/16 at 06:45; Stop 12/24/16 at 06:44 Ringer's Solution 1,000 ml @ 30 mls/hr Q24H IV ; Start 12/23/16 at 06:41; Stop 12/23/16 at 18:40 Lidocaine HCl 2 ml PRN 1X PRN ID PRIOR TO IV START; Start 12/23/16 at 06:45; Stop 12/24/16 at 06:44 Hydromorphone HCl (Dilaudid) 0.5 mg PRN Q10MIN PRN IV SEV PAIN, Second choice; Start 12/23/16 at 06:45; Stop 12/24/16 at 06:44 Prochlorperazine Edisylate (Compazine) 5 mg PACU PRN PRN IV NAUSEA, MRX1; Start 12/23/16 at 06:45; Stop 12/24/16 at 06:44 Rocuronium [place] (Zemuron) 50 mg STK-MED ONCE .ROUTE ; Start 12/23/16 at 09:51 ; Stop 12/23/16 at 09:52; Status DC Bupivacaine HCl/ Epinephrine Bitart (Marcaine-Epi 0.5%-[id number]) 50 ml STK-MED ONCE .ROUTE ; Start 12/23/16 at 09:53; Stop 12/23/16 at 09:54; Status DC Propofol 20 ml @ As Directed STK-MED ONCE IV ; Start 12/23/16 at 09:55; Stop 12/23 at 09:56; Status DC Cellulose 1 each STK-MED ONCE .ROUTE ; Start 12/23/16 at 09:56; Stop 12/23/16 at 09:57; Status DC Dexamethasone Sodium Phosphate (Decadron) 20 mg STK-MED ONCE .ROUTE ; Start 12/23 at 09:57; Stop 12/23/16 at 09:58; Status DC Ondansetron HCl (Zofran) 4 mg STK-MED ONCE .ROUTE ; Start 12/23/16 at 09:57; Stop 12/23/16 at 09:58; Status DC Ephedrine Sulfate 50 mg STK-MED ONCE IV ; Start 12/23/16 at 10:45; Stop 12/23/16 at 10:46; Status DC Fentanyl Citrate (Fentanyl 2ml Vial) 100 mcg STK-MED ONCE .ROUTE ; Start at 10:49; Stop 12/23/16 at 10:50; Status DC Glycopyrrolate (Robinul) 1 mg STK-MED ONCE .ROUTE ; Start 12/23/16 at 11:10; Stop 12/23/16 at 11:11; Status DC Neostigmine Methylsulfate 5 mg STK-MED ONCE .ROUTE ; Start 12/23/16 at 11:10; Stop 12/23/16 at 11:11; Status DC Sevoflurane (Ultane) 30 ml STK-MED ONCE IH ; Start 12/23/16 at 11:12; Stop at 11:13; Status DC Active Scripts Active Ambien (Zolpidem Tartrate) 5 Mg Tablet 5 Mg PO PRN QHS PRN Hydrocodone-Apap 7.5-325/15 Soln (Hydrocodone Bit/Acetaminophen) 15 Ml Solution 15 Ml PO PRN Q6HRS PRN Morphine Sulfate 2 Mg/1 Ml Cartridge 2 Mg IV PRN Q2HR PRN Oxycodone Hcl 5 Mg Tablet 5 Mg PO PRN Q6HRS PRN Reported Albuterol Sulfate Neb Soln (Albuterol Sulfate) 1.25 Mg/3 Ml Vial.neb 1 Vial NEB Q6HRS Ranitidine Hcl 150 Mg Capsule 75 Mg PO DAILY Ondansetron Hcl 8 Mg Tablet 8 Mg PO DAILY Azithromycin Tablet (Azithromycin) 250 Mg Tablet 250 Mg PO DAILY Bupropion Hcl 100 Mg Tablet 100 Mg PO BID Nasal Allergy [place] (Cromolyn Sodium) 13 Ml [place].pump 13 Ml NS DAILY Gabapentin 300 Mg Capsule 300 Mg PO BID Hydroxyzine Hcl 25 Mg Tablet 25 Mg PO DAILY Nystatin 15 Gm Cream..g. 15 Gm TP BID Duloxetine Hcl 60 Mg Capsule.dr 60 Mg PO DAILY Clonidine Hcl 0.1 Mg Tablet 0.1 Mg PO DAILY Lisinopril 20 Mg Tablet 20 Mg PO DAILY Famciclovir 125 Mg Tablet 125 Mg PO DAILY Ropinirole Hcl 0.25 Mg Tablet 0.25 Mg PO DAILY Hydroxychloroquine Sulfate 200 Mg Tablet 200 Mg PO DAILY Lyrica (Pregabalin) 150 Mg Capsule 150 Mg PO DAILY Furosemide 20 Mg Tablet 20 Mg PO DAILY Alprazolam 0.25 Mg Tablet 0.25 Mg PO Oxycodone Hcl 5 Mg Tablet 5 Mg PO PRN Q4HRS PRN Ibuprofen 400 Mg Tablet 400 Mg PO PRN DAILY PRN Multivitamins (Multivitamin) 1 Each Tablet 1 Each PO DAILY Oxycodone-Acetaminophen 10-325 (Oxycodone Hcl/Acetaminophen) 1 Each Tablet 1 Each PO PRN Q4-6HRS PRN Plaquenil (Hydroxychloroquine Sulfate) 200 Mg Tablet 200 Mg PO BID Vitals/I & O Vital Sign - Last 24 Hours 12/22/16 12/22/16 12/22/16 12/22/16 12:37 13:00 14:00 15:00 Pulse 80 78 78 Resp 16 19 10 B/P (MAP) 139/81 (100) 141/69 (93) 141/69 (93) Pulse Ox 97 97 95 97 O2 Delivery Ventilator Ventilator Ventilator Ventilator 12/22/16 12/22/16 12/22/16 12/22/16 15:45 15:55 16:00 16:00 Pulse 72 Resp 9 10 B/P (MAP) 138/66 (90) Pulse Ox 100 98 100 O2 Delivery Ventilator Ventilator Mechanical Ventilator Ventilator O2 Flow Rate 3.0 3.0 12/22/16 12/22/16 12/22/16 12/22/16 16:15 17:00 18:00 19:00 Temp 98.4 98.4 Pulse 76 76 76 Resp 12 13 10 12 B/P (MAP) 133/59 (83) 115/54 (74) 129/73 (91) Pulse Ox 96 96 96 98 O2 Delivery Ventilator Ventilator Ventilator O2 Flow Rate 3.0 12/22/16 12/22/16 12/22/16 12/22/16 20:00 20:00 20:00 21:00 Pulse 74 76 Resp 12 14 B/P (MAP) 109/82 (91) 123/60 (81) Pulse Ox 100 96 96 O2 Delivery Ventilator Ventilator Mechanical Ventilator Ventilator 12/22/16 12/22/16 12/22/16 12/23/16 22:00 22:37 23:00 00:00 Pulse 73 73 Resp 14 14 B/P (MAP) 128/69 (88) 103/48 (66) Pulse Ox 96 100 98 O2 Delivery Ventilator Ventilator Ventilator Mechanical Ventilator 12/23/16 12/23/16 12/23/16 12/23/16 00:01 00:45 01:00 02:00 Temp 99.0 99.0 Pulse 70 67 69 Resp 14 14 14 B/P (MAP) 106/56 (73) 106/54 (71) 112/57 (75) Pulse Ox 98 100 98 98 O2 Delivery Ventilator Ventilator Ventilator Ventilator 12/23/16 12/23/16 12/23/16 12/23/16 03:00 03:20 04:00 04:00 Temp 98.7 98.7 Pulse 65 67 Resp 14 14 B/P (MAP) 114/54 (74) 113/56 (75) Pulse Ox 98 98 98 O2 Delivery Ventilator Ventilator Ventilator Mechanical Ventilator 12/23/16 12/23/16 12/23/16 12/23/16 05:00 05:58 06:00 07:00 Pulse 67 64 67 Resp 14 14 14 B/P (MAP) 120/67 (84) 122/63 (82) 118/61 (80) Pulse Ox 98 97 98 98 O2 Delivery Ventilator Ventilator Ventilator Ventilator 12/23/16 12/23/16 12/23/16 12/23/16 07:25 08:00 08:00 08:35 Temp 98.5 98.5 Pulse 67 Resp 18 B/P (MAP) 121/65 (83) Pulse Ox 98 97 O2 Delivery Ventilator Mechanical Ventilator Ventilator Ventilator 12/23/16 12/23/16 12/23/16 12/23/16 08:56 09:00 09:12 09:26 Pulse 69 Resp 16 B/P (MAP) 132/60 (84) Pulse Ox 96 98 O2 Delivery Ventilator Ventilator Ventilator Ventilator 12/23/16 12/23/16 12/23/16 10:00 11:29 12:15 Pulse 68 Resp 15 B/P (MAP) 133/69 (90) Pulse Ox 98 98 O2 Delivery Ventilator Ventilator Ventilator Intake and Output 12/22/16 12/22/16 12/23/16 15:00 23:00 07:00 Intake Total 1220 ml 1158.87 ml 1300 ml Output Total 1725 ml 450 ml 350 ml Balance -505 ml 708.87 ml 950 ml Nutrition Consultation Dietary Evaluation: Recommendations by RD: Increase Calorie Intake, PPN/TPN Comments: Pt's propofol rate has decreased Rec. 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
--- NOTE | 2016-12-23 13:12 | PDOC ---
G I PROGRESS NOTE Reason for Follow-up Ascites/oropharyngeal dysphagia Subjective Alert/on trach Physical Exam Lungs decreased BS CV S1 S2 Abd +BS, soft, nontender Review of Relevant I have reviewed the following items anselmo (where applicable) has been applied. Labs Laboratory Tests Test 12/21/16 16:43 12/22/16 00:25 12/22/16 05:54 12/22/16 06:00 Glucose (Fingerstick) 133 mg/dL (70-99) 91 mg/dL (70-99) 114 mg/dL (70-99) White Blood Count 3.3 x10^3/uL (4.0-11.0) Red Blood Count 2.73 x10^6/uL (3.50-5.40) Hemoglobin 8.4 g/dL (12.0-15.5) Hematocrit 24.1 % (36.0-47.0) Mean Corpuscular Volume 88 fL (79-100) Mean Corpuscular Hemoglobin 31 pg (25-35) Mean Corpuscular Hemoglobin Concent 35 g/dL (31-37) Red Cell Distribution Width 15.9 % (11.5-14.5) Platelet Count 79 x10^3/uL (140-400) Neutrophils (%) (Auto) 71 % (31-73) Lymphocytes (%) (Auto) 21 % (24-48) Monocytes (%) (Auto) 7 % (0-9) Eosinophils (%) (Auto) 1 % (0-3) Basophils (%) (Auto) 1 % (0-3) Neutrophils # (Auto) 2.3 x10^3uL (1.8-7.7) Lymphocytes # (Auto) 0.7 x10^3/uL (1.0-4.8) Monocytes # (Auto) 0.2 x10^3/uL (0.0-1.1) Eosinophils # (Auto) 0.0 x10^3/uL (0.0-0.7) Basophils # (Auto) 0.0 x10^3/uL (0.0-0.2) Sodium Level 146 mmol/L (136-145) Potassium Level 3.2 mmol/L (3.5-5.1) Chloride Level 109 mmol/L (98-107) Carbon Dioxide Level 31 mmol/L (21-32) Anion Gap 6 (6-14) Blood Urea Nitrogen 34 mg/dL (7-20) Creatinine 0.9 mg/dL (0.6-1.0) Estimated GFR (Cockcroft-Gault) 78.4 Glucose Level 110 mg/dL (70-99) Calcium Level 8.3 mg/dL (8.5-10.1) Magnesium Level 2.0 mg/dL (1.8-2.4) Test 12/22/16 12:02 12/22/16 18:31 12/23/16 05:50 12/23/16 06:40 Glucose (Fingerstick) 121 mg/dL (70-99) 103 mg/dL (70-99) White Blood Count 2.6 x10^3/uL (4.0-11.0) Red Blood Count 2.47 x10^6/uL (3.50-5.40) Hemoglobin 7.4 g/dL (12.0-15.5) Hematocrit 22.3 % (36.0-47.0) Mean Corpuscular Volume 91 fL (79-100) Mean Corpuscular Hemoglobin 30 pg (25-35) Mean Corpuscular Hemoglobin Concent 33 g/dL (31-37) Red Cell Distribution Width 16.2 % (11.5-14.5) Platelet Count 68 x10^3/uL (140-400) Neutrophils (%) (Auto) 66 % (31-73) Lymphocytes (%) (Auto) 25 % (24-48) Monocytes (%) (Auto) 8 % (0-9) Eosinophils (%) (Auto) 1 % (0-3) Basophils (%) (Auto) 1 % (0-3) Neutrophils # (Auto) 1.7 x10^3uL (1.8-7.7) Lymphocytes # (Auto) 0.7 x10^3/uL (1.0-4.8) Monocytes # (Auto) 0.2 x10^3/uL (0.0-1.1) Eosinophils # (Auto) 0.0 x10^3/uL (0.0-0.7) Basophils # (Auto) 0.0 x10^3/uL (0.0-0.2) Sodium Level 145 mmol/L (136-145) Potassium Level 3.2 mmol/L (3.5-5.1) Chloride Level 109 mmol/L (98-107) Carbon Dioxide Level 30 mmol/L (21-32) Anion Gap 6 (6-14) Blood Urea Nitrogen 33 mg/dL (7-20) Creatinine 0.9 mg/dL (0.6-1.0) Estimated GFR (Cockcroft-Gault) 78.4 Glucose Level 97 mg/dL (70-99) Calcium Level 8.3 mg/dL (8.5-10.1) Prothrombin Time 15.1 SEC (11.7-14.0) Prothromb Time International Ratio 1.3 (0.8-1.1) Activated Partial Thromboplast Time 27 SEC (24-38) Test 12/23/16 12:20 Glucose (Fingerstick) 113 mg/dL (70-99) Laboratory Tests Test 12/22/16 18:31 12/23/16 05:50 12/23/16 06:40 12/23/16 12:20 Glucose (Fingerstick) 103 mg/dL (70-99) 113 mg/dL (70-99) White Blood Count 2.6 x10^3/uL (4.0-11.0) Red Blood Count 2.47 x10^6/uL (3.50-5.40) Hemoglobin 7.4 g/dL (12.0-15.5) Hematocrit 22.3 % (36.0-47.0) Mean Corpuscular Volume 91 fL (79-100) Mean Corpuscular Hemoglobin 30 pg (25-35) Mean Corpuscular Hemoglobin Concent 33 g/dL (31-37) Red Cell Distribution Width 16.2 % (11.5-14.5) Platelet Count 68 x10^3/uL (140-400) Neutrophils (%) (Auto) 66 % (31-73) Lymphocytes (%) (Auto) 25 % (24-48) Monocytes (%) (Auto) 8 % (0-9) Eosinophils (%) (Auto) 1 % (0-3) Basophils (%) (Auto) 1 % (0-3) Neutrophils # (Auto) 1.7 x10^3uL (1.8-7.7) Lymphocytes # (Auto) 0.7 x10^3/uL (1.0-4.8) Monocytes # (Auto) 0.2 x10^3/uL (0.0-1.1) Eosinophils # (Auto) 0.0 x10^3/uL (0.0-0.7) Basophils # (Auto) 0.0 x10^3/uL (0.0-0.2) Sodium Level 145 mmol/L (136-145) Potassium Level 3.2 mmol/L (3.5-5.1) Chloride Level 109 mmol/L (98-107) Carbon Dioxide Level 30 mmol/L (21-32) Anion Gap 6 (6-14) Blood Urea Nitrogen 33 mg/dL (7-20) Creatinine 0.9 mg/dL (0.6-1.0) Estimated GFR (Cockcroft-Gault) 78.4 Glucose Level 97 mg/dL (70-99) Calcium Level 8.3 mg/dL (8.5-10.1) Prothrombin Time 15.1 SEC (11.7-14.0) Prothromb Time International Ratio 1.3 (0.8-1.1) Activated Partial Thromboplast Time 27 SEC (24-38) Microbiology 12/14/16 Blood Culture - Final, Complete NO GROWTH AFTER 5 DAYS 12/09/16 Stool Culture - Final, Complete 12/09/16 Stool Culture Result 1 (LUCINA) - Final, Complete 12/09/16 Campylobacter Antigen Assay - Final, Complete 12/09/16 Campylobactor Result 1 - Final, Complete 12/09/16 Shiga Toxin Test - Final, Complete 12/17/16 Gram Stain - Final, Complete 12/06/16 Urine Culture - Final, Complete 12/06/16 Urine Culture Result 1 (LUCINA) - Final, Complete 12/17/16 Gram Stain - Final, Complete Medications Current Medications Sodium Chloride 1,000 ml @ 1,000 mls/hr 1X ONCE IV Last administered on 16:18; Start 12/06/16 at 16:15; Stop 12/06/16 at 17:14; Status DC Vancomycin HCl (Vanco Per Pharmacy) 1 each PRN DAILY PRN MC SEE COMMENTS Last administered on 12/15/16t 15:18; Start 12/06/16 at 17:00; Stop 12/16/16 at 09:58 ; Status DC Levofloxacin/ Dextrose 150 ml @ 100 mls/hr 1X ONCE IV Last administered on 20:04; Start 12/06/16 at 17:00; Stop 12/06/16 at 18:29; Status DC Vancomycin HCl 2 gm/Sodium Chloride 500 ml @ 250 mls/hr 1X ONCE IV Last administered on 12/06/16 17:11; Start 12/06/16 at 17:00; Stop 12/06/16 at 18:59 ; Status DC Sodium Chloride 1,000 ml @ 1,000 mls/hr 1X ONCE IV Last administered on 17:09; Start 12/06/16 at 17:00; Stop 12/06/16 at 17:59; Status DC Meropenem 500 mg/ Sodium Chloride 50 ml @ 100 mls/hr Q8HRS IV Last administered on 12/10/16 07:30; Start 12/06/16 at 18:00; Stop 12/10/16 at 08:13 ; Status DC Dopamine HCl/ Dextrose 250 ml @ 16.414 mls/ hr 1X ONCE IV Last administered on 12/06/16 17:41; Start 12/06/16 at 17:15; Stop 12/07/16 at 08:28; Status DC Etomidate (Amidate) 20 mg 1X ONCE IV Last administered on 12/06/16 17:19; Start 12/06/16 at 17:15; Stop 12/06/16 at 17:17; Status DC Succinylcholine Chloride (Anectine) 100 mg 1X ONCE IV Last administered on 17:20; Start 12/06/16 at 17:15; Stop 12/06/16 at 17:17; Status DC Vancomycin HCl 1.25 gm/Sodium Chloride 250 ml @ 167 mls/hr Q24H IV Last administered on 12/07/16 18:39; Start 12/07/16 at 17:00; Stop 12/07/16 at 23:00 ; Status DC Vancomycin HCl 1 each 1X ONCE MC ; Start 12/07/16 at 16:30; Stop 12/07/16 at 16 :31; Status Cancel Midazolam HCl 100 ml @ As Directed STK-MED ONCE IV ; Start 12/06/16 at 17:36; Stop 12/06/16 at 17:37; Status DC Midazolam HCl (Versed) 5 mg STK-MED ONCE .ROUTE ; Start 12/06/16 at 17:37; Stop 12/06/16 at 17:38; Status DC Midazolam HCl (Versed) 5 mg PRN Q10MIN PRN IV SEDATION; Start 12/06/16 at 17:45 ; Stop 12/21/16 at 11:15; Status DC Hydrocortisone Sodium Succinate (Solu-CORTEF) 100 mg Q8HRS IV Last administered on 12/09/16 13:55; Start 12/06/16 at 18:30; Stop 12/09/16 at 16:21 ; Status DC Norepinephrine Bitartrate 16 mg/ Sodium Chloride 266 ml @ 0 mls/hr CONT PRN IV SEE I/O RECORD; Start 12/06/16 at 19:00; Status UNV Pantoprazole Sodium (Protonix Vial) 40 mg DAILYAC IVP Last administered on 12/15 08:40; Start 12/06/16 at 19:30; Stop 12/15/16 at 10:35; Status DC Acetaminophen (Tylenol) 325 mg PRN Q6HRS PRN PO MILD PAIN / TEMP; Start at 19:00; Stop 12/21/16 at 11:15; Status DC Hydralazine HCl (Apresoline) 10 mg PRN Q4HRS PRN IVP ELEVATED BP, SEE COMMENTS Last administered on 12/17/16 12:26; Start 12/06/16 at 19:00 Ondansetron HCl (Zofran) 4 mg PRN Q8HRS PRN IV NAUSEA/VOMITING; Start 12/06/16 at 19:00; Stop 12/12/16 at 08:31; Status DC Albuterol Sulfate (Ventolin Neb Soln) 2.5 mg PRN Q4HRS PRN NEB SHORTNESS OF BREATH Last administered on 12/16/16 00:43; Start 12/06/16 at 19:00 Norepinephrine Bitartrate 250 ml @ 1.875 mls/ hr CONT PRN IV SEE I/O RECORD Last administered on 12/06/16 19:55; Start 12/06/16 at 19:00; Stop 12/15/16 at 10:33; Status DC Sodium Chloride 1,000 ml @ 1,000 mls/hr 1X ONCE IV Last administered on 19:56; Start 12/06/16 at 19:15; Stop 12/06/16 at 20:14; Status DC Sodium Chloride 1,000 ml @ 75 mls/hr [id number] IV Last administered on 21:55; Start 12/06/16 at 19:15; Stop 12/09/16 at 18:44; Status DC Pneumococcal Polyvalent Vaccine (Do NOT chart on this placeholder) 1 each PRN DAILY PRN MC PT UNABLE TO RESPOND; Start 12/07/16 at 09:30; Status Cancel Pneumococcal Polyvalent Vaccine (Pneumovax 23) 0.5 ml ONCE ONCE VAX IM ; Start 12/08/16 at 09:00; Stop 12/08/16 at 09:01; Status DC Albuterol/ Ipratropium (Duoneb) 3 ml RTQID NEB Last administered on 12/23/16 11 :29; Start 12/07/16 at 12:00 Midazolam HCl 100 ml @ 0 mls/hr CONT PRN IV SEE I/O RECORD Last administered on 12/07/16 10:29; Start 12/07/16 at 10:15; Stop 12/13/16 at 20:41; Status DC Fentanyl Citrate (Fentanyl 2ml Vial) 25 mcg PRN Q1HR PRN IV PAIN Last administered on 12/23/16 12:15; Start 12/07/16 at 10:45 Pantoprazole Sodium (Protonix Vial) 40 mg DAILYAC IVP ; Start 12/07/16 at 17:00 ; Status Cancel Vancomycin HCl 1.25 gm/Sodium Chloride 250 ml @ 167 mls/hr Q12H IV Last administered on 12/13/16 18:25; Start 12/08/16 at 06:00; Stop 12/13/16 at 18:54 ; Status DC Vancomycin HCl 1 each 1X ONCE MC ; Start 12/08/16 at 17:30; Stop 12/08/16 at 17 :31; Status DC Vancomycin HCl 1 gm/Sodium Chloride 250 ml @ 250 mls/hr Q12H IV ; Start at 18:00; Status Cancel Chlorhexidine Gluconate (Peridex) 15 ml BID SWSP ; Start 12/09/16 at 21:00; Stop 12/10/16 at 07:23; Status DC Hydrocortisone Sodium Succinate (Solu-CORTEF) 100 mg Q12HR IV Last administered on 12/14/16 08:53; Start 12/09/16 at 21:00; Stop 12/14/16 at 16:52 ; Status DC Amino Acids/ Glycerin/ Electrolytes 1,000 ml @ 40 mls/hr Q24H IV Last administered on 12/09/16 17:56; Start 12/09/16 at 17:00; Stop 12/10/16 at 14:16 ; Status DC Alprazolam (Xanax) 0.25 mg DAILY PO Last administered on 12/22/16 08:21; Start 12/10/16 at 09:00 Bupropion HCl (Wellbutrin) 100 mg BID PO Last administered on 12/22/16 21:06; Start 12/09/16 at 21:00 Gabapentin (Neurontin) 300 mg BID PO ; Start 12/09/16 at 21:00; Status Cancel Ropinirole HCl (Requip) 0.25 mg QHS PO Last administered on 12/22/16 21:06; Start 12/09/16 at 21:00 Pregabalin (Lyrica) 150 mg DAILY PO Last administered on 12/19/16 08:16; Start 12/10/16 at 09:00; Stop 12/19/16 at 18:41; Status DC Epinephrine (S2 Racepinephrine) 0.5 ml 1X ONCE NEB Last administered on 07:45; Start 12/10/16 at 07:45; Stop 12/10/16 at 07:46; Status DC Lorazepam (Ativan) 2 mg 1X ONCE IV Last administered on 12/10/16 08:33; Start 12/10/16 at 08:00; Stop 12/10/16 at 08:01; Status DC Succinylcholine Chloride (Anectine) 200 mg STK-MED ONCE .ROUTE ; Start 12/10/16 at 10:28; Stop 12/10/16 at 10:29; Status DC Propofol 100 ml @ As Directed STK-MED ONCE IV ; Start 12/10/16 at 10:28; Stop 12/10/16 at 10:29; Status DC Calcium Gluconate (Calcium Gluconate) 1,000 mg 1X ONCE IVP Last administered on 12/10/16 11:41; Start 12/10/16 at 11:30; Stop 12/10/16 at 11:31; Status DC Succinylcholine Chloride (Anectine) 200 mg 1X ONCE IV Last administered on 11:41; Start 12/10/16 at 11:30; Stop 12/10/16 at 11:31; Status DC Propofol 100 ml @ 0 mls/hr CONT PRN IV SEE I/O RECORD Last administered on 12/13 00:57; Start 12/10/16 at 11:30; Stop 12/13/16 at 20:41; Status DC Insulin Aspart (NovoLOG) 0-5 UNITS TIDWMEALS SQ ; Start 12/11/16 at 08:00; Stop 12/11/16 at 08:00; Status DC Dextrose (Dextrose 50%-Water Syringe) 12.5 gm PRN Q15MIN PRN IV SEE COMMENTS; Start 12/10/16 at 20:30 Insulin Aspart (NovoLOG) 0-5 UNITS Q6HRS SQ Last administered on 12/19/16 11: 57; Start 12/11/16 at 00:00 Chlorhexidine Gluconate (Peridex) 15 ml BID MM Last administered on 12/13/16 09:46; Start 12/11/16 at 21:00; Stop 12/13/16 at 20:41; Status DC Fentanyl Citrate (Fentanyl 2ml Vial) 25 mcg PRN Q5MIN PRN IV MILD PAIN; Start 12/12/16 at 07:00; Stop 12/13/16 at 06:59; Status DC Fentanyl Citrate (Fentanyl 2ml Vial) 50 mcg PRN Q5MIN PRN IV MODERATE PAIN; Start 12/12/16 at 07:00; Stop 12/13/16 at 06:59; Status DC Morphine Sulfate 1 mg PRN Q10MIN PRN IV SEVERE PAIN; Start 12/12/16 at 07:00; Stop 12/13/16 at 06:59; Status DC Ringer's Solution 1,000 ml @ 30 mls/hr Q24H IV ; Start 12/12/16 at 07:00; Stop 12/12/16 at 18:59; Status DC Lidocaine HCl 2 ml PRN 1X PRN ID PRIOR TO IV START; Start 12/12/16 at 07:00; Stop 12/13/16 at 06:59; Status DC Hydromorphone HCl (Dilaudid) 0.5 mg PRN Q10MIN PRN IV SEV PAIN, Second choice; Start 12/12/16 at 07:00; Stop 12/13/16 at 06:59; Status DC Prochlorperazine Edisylate (Compazine) 5 mg PACU PRN PRN IV NAUSEA, MRX1; Start 12/12/16 at 07:00; Stop 12/13/16 at 06:59; Status DC Lidocaine HCl (Lidocaine Pf 2% Vial) 5 ml STK-MED ONCE .ROUTE ; Start 12/12/16 at 08:15; Stop 12/12/16 at 08:16; Status DC Propofol 0 ml @ As Directed STK-MED ONCE IV ; Start 12/12/16 at 08:15; Stop at 08:16; Status DC Ondansetron HCl (Zofran) 4 mg PRN Q6HRS PRN IV NAUSEA/VOMITING Last administered on 12/14/16 01:41; Start 12/12/16 at 19:00 Acetaminophen (Tylenol) 650 mg PRN Q6HRS PRN PEG MILD PAIN / TEMP Last administered on 12/15/16 17:25; Start 12/12/16 at 08:30 Vancomycin HCl 1 each 1X ONCE MC Last administered on 12/13/16 10:00; Start 12/13/16 at 10:00; Stop 12/13/16 at 10:01; Status DC Furosemide (Lasix) 40 mg 1X ONCE IVP Last administered on 12/13/16 11:31; Start 12/13/16 at 11:15; Stop 12/13/16 at 11:16; Status DC Amino Acids/ Glycerin/ Electrolytes 1,000 ml @ 75 mls/hr [id number] IV Last administered on 12/15/16 04:25; Start 12/13/16 at 21:00; Stop 12/15/16 at 10:33 ; Status DC Vancomycin HCl 1 each 1X ONCE MC Last administered on 12/14/16 09:00; Start 12/14/16 at 09:00; Stop 12/14/16 at 09:01; Status DC Vancomycin HCl 1 each 1X ONCE MC ; Start 12/15/16 at 06:00; Stop 12/15/16 at 06 :01; Status Cancel Vancomycin HCl 1 each 1X ONCE MC Last administered on 12/15/16 06:00; Start 12/15/16 at 06:00; Stop 12/15/16 at 06:01; Status DC Alteplase, Recombinant (Cathflo) 2 mg 1X ONCE INT CAT Last administered on 14:58; Start 12/14/16 at 14:30; Stop 12/14/16 at 14:34; Status DC Hydrocortisone Sodium Succinate (Solu-CORTEF) 100 mg DAILY IV Last administered on 12/19/16 08:17; Start 12/15/16 at 09:00; Stop 12/19/16 at 10:04 ; Status DC Haloperidol Lactate (Haldol) 2.5 mg PRN Q4HRS PRN IVP AGITATION Last administered on 12/15/16 20:35; Start 12/15/16 at 06:45 Lansoprazole (Prevacid) 30 mg DAILYAC FT ; Start 12/16/16 at 07:30; Stop at 10:00; Status DC Vancomycin HCl 1 gm/Sodium Chloride 250 ml @ 250 mls/hr Q48H IV ; Start at 21:00; Status Cancel Morphine Sulfate 2 mg PRN Q2HR PRN IV SEVERE PAIN Last administered on 09:51; Start 12/15/16 at 21:15; Stop 12/21/16 at 11:15; Status DC Zolpidem Tartrate (Ambien) 5 mg PRN QHS PRN PO INSOMNIA Last administered on 00:17; Start 12/16/16 at 00:00 Propofol 100 ml @ As Directed STK-MED ONCE IV ; Start 12/16/16 at 02:34; Stop 12/16/16 at 02:35; Status DC Succinylcholine Chloride (Anectine) 200 mg STK-MED ONCE .ROUTE ; Start 12/16/16 at 02:57; Stop 12/16/16 at 02:58; Status DC Succinylcholine Chloride (Anectine) 200 mg STK-MED ONCE .ROUTE ; Start 12/16/16 at 02:57; Stop 12/16/16 at 02:58; Status DC Etomidate (Amidate) 20 mg STK-MED ONCE IV ; Start 12/16/16 at 02:58; Stop at 02:59; Status DC Propofol 100 ml @ 0 mls/hr CONT PRN IV SEE I/O RECORD; Start 12/16/16 at 04:15 ; Stop 12/16/16 at 08:04; Status DC Chlorhexidine Gluconate (Peridex) 15 ml BID MM Last administered on 12/23/16 08 :18; Start 12/16/16 at 09:00 Propofol (Diprivan) 1,000 mg STK-MED ONCE IV ; Start 12/16/16 at 03:00; Stop at 07:11; Status DC Furosemide (Lasix) 40 mg DAILY IVP Last administered on 12/21/16 09:03; Start 12/16/16 at 09:00; Stop 12/21/16 at 11:02; Status DC Ceftaroline Fosamil 600 mg/ Sodium Chloride 250 ml @ 250 mls/hr Q8HRS IV Last administered on 12/23/16 04:48; Start 12/16/16 at 10:00 Famotidine (Pepcid) 20 mg BID IVP Last administered on 12/22/16 21:07; Start at 10:30 Propofol 100 ml @ 0 mls/hr CONT PRN IV PER PROTOCOL Last administered on 04:47; Start 12/16/16 at 06:45 Fentanyl Citrate (Fentanyl 2ml Vial) 25 mcg PRN Q5MIN PRN IV MILD PAIN; Start 12/16/16 at 12:45; Stop 12/17/16 at 12:44; Status DC Fentanyl Citrate (Fentanyl 2ml Vial) 50 mcg PRN Q5MIN PRN IV MODERATE PAIN; Start 12/16/16 at 12:45; Stop 12/17/16 at 12:44; Status DC Morphine Sulfate 1 mg PRN Q10MIN PRN IV SEVERE PAIN; Start 12/16/16 at 12:45; Stop 12/17/16 at 12:44; Status DC Ringer's Solution 1,000 ml @ 30 mls/hr Q24H IV ; Start 12/16/16 at 12:32; Stop 12/17/16 at 00:31; Status DC Lidocaine HCl 2 ml PRN 1X PRN ID PRIOR TO IV START; Start 12/16/16 at 12:45; Stop 12/17/16 at 12:44; Status DC Hydromorphone HCl (Dilaudid) 0.5 mg PRN Q10MIN PRN IV SEV PAIN, Second choice; Start 12/16/16 at 12:45; Stop 12/17/16 at 12:44; Status DC Prochlorperazine Edisylate (Compazine) 5 mg PACU PRN PRN IV NAUSEA, MRX1; Start 12/16/16 at 12:45; Stop 12/17/16 at 12:44; Status DC Dextrose/Sodium Chloride 1,000 ml @ 50 mls/hr Q20H IV ; Start 12/16/16 at 13:00 ; Stop 12/16/16 at 13:38; Status DC Potassium Chloride (KCl Oral Soln) 20 meq 1X ONCE PEG Last administered on 11:28; Start 12/17/16 at 11:00; Stop 12/17/16 at 11:01; Status DC Lidocaine/Sodium Bicarbonate (Buffered Lidocaine 1%) 20 ml STK-MED ONCE IJ ; Start 12/17/16 at 14:48; Stop 12/17/16 at 14:49; Status DC Heparin Sodium/ Sodium Chloride 500 ml @ As Directed STK-MED ONCE .ROUTE ; Start 12/17/16 at 14:48; Stop 12/17/16 at 14:49; Status DC Lidocaine/Sodium Bicarbonate (Buffered Lidocaine 1%) 3 ml 1X ONCE IJ Last administered on 12/17/16 16:01; Start 12/17/16 at 15:15; Stop 12/17/16 at 15:16 ; Status DC Heparin Sodium/ Sodium Chloride 60 unit 1X ONCE IV Last administered on 16:02; Start 12/17/16 at 15:15; Stop 12/17/16 at 15:16; Status DC Lidocaine/ Epinephrine (Xylocaine 1%-Epi 1:100,000) 10 ml 1X ONCE INJ Last administered on 12/17/16 16:01; Start 12/17/16 at 15:15; Stop 12/17/16 at 15:16 ; Status DC Gelatin (Gelfoam Size 12-7mm) 1 each STK-MED ONCE .ROUTE ; Start 12/17/16 at 15 :01; Stop 12/17/16 at 15:02; Status DC Iohexol (Omnipaque 300 Mg/ml) 75 ml 1X ONCE IV ; Start 12/18/16 at 14:00; Stop 12/18/16 at 14:01; Status DC Info (Do NOT chart on this entry -- for MONITORING) 1 each PRN DAILY PRN MC SEE COMMENTS; Start 12/18/16 at 14:00; Stop 12/20/16 at 13:59; Status DC Potassium Chloride (Klor-Con) 40 meq Q2H PO Last administered on 12/19/16 14: 51; Start 12/19/16 at 10:00; Stop 12/19/16 at 12:01; Status DC Hydrocortisone Sodium Succinate (Solu-CORTEF) 50 mg DAILY IV Last administered on 12/22/16 08:21; Start 12/20/16 at 09:00 Potassium Chloride 20 meq/ Sodium Chloride 510 ml @ 500 mls/hr 1X ONCE IV Last administered on 12/19/16 11:42; Start 12/19/16 at 11:00; Stop 12/19/16 at 12:01; Status DC Nystatin (Nystop) 1 jimenez BID TP Last administered on 12/23/16 08:18; Start 12/19 at 21:00 Pregabalin (Lyrica) 75 mg [id number] PO Last administered on 12/22/16 21:06; Start 12/19/16 at 21:00 Sodium Chloride 1,000 ml @ 100 mls/hr 1X ONCE IV Last administered on 00:28; Start 12/20/16 at 00:15; Stop 12/20/16 at 10:14; Status DC Fentanyl Citrate (Fentanyl 2ml Vial) 50 mcg PRN Q5MIN PRN IV Acute Pain; Start 12/23/16 at 06:00; Stop 12/23/16 at 06:00; Status DC Morphine Sulfate 4 mg PRN Q10MIN PRN IV Moderate Pain; Start 12/23/16 at 06:00; Stop 12/23/16 at 06:00; Status DC Hydromorphone HCl (Dilaudid) 0.4 mg PRN Q10MIN PRN IV Moderate to severe pain; Start 12/23/16 at 06:00; Stop 12/23/16 at 06:00; Status DC Meperidine HCl (Demerol) 12.5 mg PRN Q5MIN PRN IV SHIVERING; Start 12/23/16 at 06:00; Stop 12/23/16 at 06:00; Status DC Prochlorperazine Edisylate (Compazine) 5 mg PRN Q6HRS PRN IV Nausea/Vomiting, 1st Choice; Start 12/23/16 at 06:00; Stop 12/23/16 at 15:00 Diphenhydramine HCl (Benadryl) 12.5 mg PRN Q2HR PRN IV ITCHING; Start 12/23/16 at 06:00; Stop 12/23/16 at 15:00 Furosemide (Lasix) 20 mg DAILY IVP Last administered on 12/22/16 08:22; Start 12/22/16 at 09:00 Acetaminophen/ Hydrocodone Bitart (Lortab 7.5-325/ 15ml Oral Solution) 10 ml PRN Q6HRS PRN PO PAIN; Start 12/21/16 at 11:15 Multi-Ingredient Ointment (Analgesic [place]) 1 jimenez PRN QID PRN TP MUSCLE PAIN Last administered on 12/22/16 21:07; Start 12/21/16 at 11:15 Potassium Chloride 50 ml @ 25 mls/hr Q2H IV Last administered on 12/21/16 16:06 ; Start 12/21/16 at 12:00; Stop 12/21/16 at 15:59; Status DC Potassium Chloride (KCl Oral Soln) 40 meq 1X ONCE PO Last administered on 08:20; Start 12/22/16 at 07:45; Stop 12/22/16 at 07:47; Status DC Fentanyl Citrate (Fentanyl 2ml Vial) 25 mcg PRN Q5MIN PRN IV MILD PAIN; Start 12/23/16 at 06:45; Stop 12/24/16 at 06:44 Fentanyl Citrate (Fentanyl 2ml Vial) 50 mcg PRN Q5MIN PRN IV MODERATE PAIN; Start 12/23/16 at 06:45; Stop 12/24/16 at 06:44 Morphine Sulfate 1 mg PRN Q10MIN PRN IV SEVERE PAIN; Start 12/23/16 at 06:45; Stop 12/24/16 at 06:44 Ringer's Solution 1,000 ml @ 30 mls/hr Q24H IV ; Start 12/23/16 at 06:41; Stop 12/23/16 at 18:40 Lidocaine HCl 2 ml PRN 1X PRN ID PRIOR TO IV START; Start 12/23/16 at 06:45; Stop 12/24/16 at 06:44 Hydromorphone HCl (Dilaudid) 0.5 mg PRN Q10MIN PRN IV SEV PAIN, Second choice; Start 12/23/16 at 06:45; Stop 12/24/16 at 06:44 Prochlorperazine Edisylate (Compazine) 5 mg PACU PRN PRN IV NAUSEA, MRX1; Start 12/23/16 at 06:45; Stop 12/24/16 at 06:44 Rocuronium [place] (Zemuron) 50 mg STK-MED ONCE .ROUTE ; Start 12/23/16 at 09:51 ; Stop 12/23/16 at 09:52; Status DC Bupivacaine HCl/ Epinephrine Bitart (Marcaine-Epi 0.5%-1:[id number]) 50 ml STK-MED ONCE .ROUTE ; Start 12/23/16 at 09:53; Stop 12/23/16 at 09:54; Status DC Propofol 20 ml @ As Directed STK-MED ONCE IV ; Start 12/23/16 at 09:55; Stop 12/23 at 09:56; Status DC Cellulose 1 each STK-MED ONCE .ROUTE ; Start 12/23/16 at 09:56; Stop 12/23/16 at 09:57; Status DC Dexamethasone Sodium Phosphate (Decadron) 20 mg STK-MED ONCE .ROUTE ; Start 12/23 at 09:57; Stop 12/23/16 at 09:58; Status DC Ondansetron HCl (Zofran) 4 mg STK-MED ONCE .ROUTE ; Start 12/23/16 at 09:57; Stop 12/23/16 at 09:58; Status DC Ephedrine Sulfate 50 mg STK-MED ONCE IV ; Start 12/23/16 at 10:45; Stop 12/23/16 at 10:46; Status DC Fentanyl Citrate (Fentanyl 2ml Vial) 100 mcg STK-MED ONCE .ROUTE ; Start at 10:49; Stop 12/23/16 at 10:50; Status DC Glycopyrrolate (Robinul) 1 mg STK-MED ONCE .ROUTE ; Start 12/23/16 at 11:10; Stop 12/23/16 at 11:11; Status DC Neostigmine Methylsulfate 5 mg STK-MED ONCE .ROUTE ; Start 12/23/16 at 11:10; Stop 12/23/16 at 11:11; Status DC Sevoflurane (Ultane) 30 ml STK-MED ONCE IH ; Start 12/23/16 at 11:12; Stop at 11:13; Status DC Potassium Chloride 50 ml @ 50 mls/hr Q1H IV ; Start 12/23/16 at 12:45; Stop at 14:44 Amino Acids/ Glycerin/ Electrolytes 1,000 ml @ 75 mls/hr [id number] IV ; Start 12/23/16 at 13:30 Active Scripts Active Ambien (Zolpidem Tartrate) 5 Mg Tablet 5 Mg PO PRN QHS PRN Hydrocodone-Apap 7.5-325/15 Soln (Hydrocodone Bit/Acetaminophen) 15 Ml Solution 15 Ml PO PRN Q6HRS PRN Morphine Sulfate 2 Mg/1 Ml Cartridge 2 Mg IV PRN Q2HR PRN Oxycodone Hcl 5 Mg Tablet 5 Mg PO PRN Q6HRS PRN Reported Albuterol Sulfate Neb Soln (Albuterol Sulfate) 1.25 Mg/3 Ml Vial.neb 1 Vial NEB Q6HRS Ranitidine Hcl 150 Mg Capsule 75 Mg PO DAILY Ondansetron Hcl 8 Mg Tablet 8 Mg PO DAILY Azithromycin Tablet (Azithromycin) 250 Mg Tablet 250 Mg PO DAILY Bupropion Hcl 100 Mg Tablet 100 Mg PO BID Nasal Allergy [place] (Cromolyn Sodium) 13 Ml [place].pump 13 Ml NS DAILY Gabapentin 300 Mg Capsule 300 Mg PO BID Hydroxyzine Hcl 25 Mg Tablet 25 Mg PO DAILY Nystatin 15 Gm Cream..g. 15 Gm TP BID Duloxetine Hcl 60 Mg Capsule.dr 60 Mg PO DAILY Clonidine Hcl 0.1 Mg Tablet 0.1 Mg PO DAILY Lisinopril 20 Mg Tablet 20 Mg PO DAILY Famciclovir 125 Mg Tablet 125 Mg PO DAILY Ropinirole Hcl 0.25 Mg Tablet 0.25 Mg PO DAILY Hydroxychloroquine Sulfate 200 Mg Tablet 200 Mg PO DAILY Lyrica (Pregabalin) 150 Mg Capsule 150 Mg PO DAILY Furosemide 20 Mg Tablet 20 Mg PO DAILY Alprazolam 0.25 Mg Tablet 0.25 Mg PO Oxycodone Hcl 5 Mg Tablet 5 Mg PO PRN Q4HRS PRN Ibuprofen 400 Mg Tablet 400 Mg PO PRN DAILY PRN Multivitamins (Multivitamin) 1 Each Tablet 1 Each PO DAILY Oxycodone-Acetaminophen 10-325 (Oxycodone Hcl/Acetaminophen) 1 Each Tablet 1 Each PO PRN Q4-6HRS PRN Plaquenil (Hydroxychloroquine Sulfate) 200 Mg Tablet 200 Mg PO BID Vitals/I & O Vital Sign - Last 24 Hours 12/22/16 12/22/16 12/22/16 12/22/16 14:00 15:00 15:45 15:55 Pulse 78 78 Resp 19 10 9 B/P (MAP) 141/69 (93) 141/69 (93) Pulse Ox 95 97 100 98 O2 Delivery Ventilator Ventilator Ventilator Ventilator O2 Flow Rate 3.0 12/22/16 12/22/16 12/22/16 12/22/16 16:00 16:00 16:15 17:00 Pulse 72 76 Resp 10 12 13 B/P (MAP) 138/66 (90) 133/59 (83) Pulse Ox 100 96 96 O2 Delivery Mechanical Ventilator Ventilator Ventilator O2 Flow Rate 3.0 3.0 12/22/16 12/22/16 12/22/16 12/22/16 18:00 19:00 20:00 20:00 Temp 98.4 98.4 Pulse 76 76 74 Resp 10 12 12 B/P (MAP) 115/54 (74) 129/73 (91) 109/82 (91) Pulse Ox 96 98 100 96 O2 Delivery Ventilator Ventilator Ventilator Ventilator 12/22/16 12/22/16 12/22/16 12/22/16 20:00 21:00 22:00 22:37 Pulse 76 73 Resp 14 14 B/P (MAP) 123/60 (81) 128/69 (88) Pulse Ox 96 96 100 O2 Delivery Mechanical Ventilator Ventilator Ventilator Ventilator 12/22/16 12/23/16 12/23/16 12/23/16 23:00 00:00 00:01 00:45 Temp 99.0 99.0 Pulse 73 70 Resp 14 14 B/P (MAP) 103/48 (66) 106/56 (73) Pulse Ox 98 98 100 O2 Delivery Ventilator Mechanical Ventilator Ventilator Ventilator 12/23/16 12/23/16 12/23/16 12/23/16 01:00 02:00 03:00 03:20 Pulse 67 69 65 Resp 14 14 14 B/P (MAP) 106/54 (71) 112/57 (75) 114/54 (74) Pulse Ox 98 98 98 98 O2 Delivery Ventilator Ventilator Ventilator Ventilator 12/23/16 12/23/16 12/23/16 12/23/16 04:00 04:00 05:00 05:58 Temp 98.7 98.7 Pulse 67 67 Resp 14 14 B/P (MAP) 113/56 (75) 120/67 (84) Pulse Ox 98 98 97 O2 Delivery Ventilator Mechanical Ventilator Ventilator Ventilator 12/23/16 12/23/16 12/23/16 12/23/16 06:00 07:00 07:25 08:00 Pulse 64 67 Resp 14 14 B/P (MAP) 122/63 (82) 118/61 (80) Pulse Ox 98 98 98 O2 Delivery Ventilator Ventilator Ventilator Mechanical Ventilator 12/23/16 12/23/16 12/23/16 12/23/16 08:00 08:35 08:56 09:00 Temp 98.5 98.5 Pulse 67 69 Resp 18 16 B/P (MAP) 121/65 (83) 132/60 (84) Pulse Ox 97 96 O2 Delivery Ventilator Ventilator Ventilator Ventilator 12/23/16 12/23/16 12/23/16 12/23/16 09:12 09:26 10:00 11:29 Pulse 68 Resp 15 B/P (MAP) 133/69 (90) Pulse Ox 98 98 98 O2 Delivery Ventilator Ventilator Ventilator Ventilator 12/23/16 12/23/16 12/23/16 12/23/16 11:30 11:45 12:00 12:15 Temp 98.2 98.2 Pulse 80 74 78 Resp 12 12 17 B/P (MAP) 151/80 (103) 140/69 (92) 153/86 (108) Pulse Ox 95 100 99 O2 Delivery Ventilator Ventilator Ventilator Ventilator 12/23/16 12/23/16 12/23/16 12:15 12:30 13:00 Pulse 72 74 67 Resp 12 19 11 B/P (MAP) 145/73 (97) 141/81 (101) 146/76 (99) Pulse Ox 97 96 95 O2 Delivery Ventilator Ventilator Ventilator Intake and Output 12/22/16 12/22/16 12/23/16 15:00 23:00 07:00 Intake Total 1220 ml 1158.87 ml 1300 ml Output Total 1725 ml 450 ml 350 ml Balance -505 ml 708.87 ml 950 ml Problem List Problems Medical Problems: (1) Respiratory failure Status: Acute Assessment Oropharyngeal dysphagia- with ascites and thrombocytopenia, PEG contra- indicated with increased risk of post-procedure bleeding and ascites leak, dobhoff recommended sand wheeler until dysphagia improves, EVY MANLEY MD Dec 23, 2016 13:12
[2016-12-23] MEDS: POTASSIUM CHLORIDE 20MEQ 50 ML IV SCH ×2 (13:20→14:24)
[2016-12-23] MEDS ORDERED: AMINO AC 3%/ELECTROLYTE/GLYCER 1,000 ML IV SCH (13:30)
[2016-12-23] MEDS: HYDROCORTISONE SOD SUCC/PF 100 MG/2 ML VIAL. IV SCH (14:30)
[2016-12-23] MEDS: FAMOTIDINE 20 MG/2 ML VIAL IVP SCH ×2 (14:31→22:04)
[2016-12-23] MEDS: FUROSEMIDE 20 MG/2 ML VIAL. IVP SCH (14:33)
--- NOTE | 2016-12-23 16:13 | RAD ---
Indication check Dobbhoff feeding tube placement. A single view targeted to the lower chest and abdomen was obtained. There is a tube positioned in the antrum of the stomach or first portion of the duodenum. There is some mild dilatation of small bowel loops representing a new finding relative to yesterday's study. IMPRESSION: Tube in the antrum or first portion of the duodenum. Modest dilatation of small bowel loops.
[2016-12-23] MEDS: rOPINIRole 0.25 MG TABLET. PO SCH (22:03)
[2016-12-23] MEDS: METHYL SALICYLATE/MENTHOL TOPICAL OINTMENT 29GM TUBE. TP PRN (23:14)
[2016-12-24] VITALS (24 sets, daily range): BP systolic 103–179; BP diastolic 43–89
[2016-12-24] MEDS: INSULIN ASPART 300 UNITS/3 ML INSULN.PEN SQ SCH ×4 (06:00→18:00)
[2016-12-24] MEDS: CEFTAROLINE FOSAMIL 600 MG in IV NORMAL SALINE 250ML 250 ML IV SCH ×3 (06:14→22:01)
[2016-12-24 06:35] LABS: BASO % 1 % (0-3); EOS % 0 % (0-3); HEMATOCRIT 23.5 % (36.0-47.0); HEMOGLOBIN 7.8 g/dL (12.0-15.5); LYMPH # 0.7 x10^3/uL (1.0-4.8); LYMPH % 22 % (24-48); MEAN CORPUSCULAR HEMOGLOBIN 30 pg (25-35); MEAN CORPUSCULAR HGB CONC 33 g/dL (31-37); MEAN CORPUSCULAR VOLUME 91 fL (79-100); MONO % 8 % (0-9); NEUT % 70 % (31-73); PLATELET COUNT 69 x10^3/uL (140-400); RED BLOOD COUNT 2.59 x10^6/uL (3.50-5.40); RED CELL DISTRIBUTION WIDTH 16.3 % (11.5-14.5)
[2016-12-24 06:44] LABS: CALCIUM 8.1 mg/dL (8.5-10.1); GFR 69.4; POTASSIUM 3.5 mmol/L (3.5-5.1)
[2016-12-24] MEDS: METHYL SALICYLATE/MENTHOL TOPICAL OINTMENT 29GM TUBE. TP PRN (06:45)
[2016-12-24] MEDS: IPRATRPIUM/ALBUTEROL 0.5/2.5MG 3 ML NEBU. NEB SCH ×4 (07:12→19:27)
--- NOTE | 2016-12-24 07:48 | PDOC ---
Infectious Disease Note Subjective Subjective Remains intubated, FiO2 30%. Tube feeding ROS ROS awake, no n/v/d/pain Vital Sign Vital Signs Vital Signs Date Time Temp Pulse Resp B/P (MAP) Pulse Ox O2 Delivery O2 Flow Rate FiO2 12/24/16 07:12 97 Ventilator 12/24/16 06:00 62 14 130/64 (86) 12/24/16 03:00 98.0 98.0 12/23/16 20:11 3.0 Physical Exam PHYSICAL EXAM GENERAL: NAD, Alert on vent HEENT: PERRL, OC/OP NECK: Supple, no JVD, no LN LUNGS: Clear HEART: S1S2, no gallop, no murmur ABD: Soft, NT, no organomegaly, no rebound EXT: No edema, no cyanosis HOSPICE MUSIC THERAPIST: Alert, oriented x 3, no focal neurologic deficit SKIN: No rash IV: ok Labs Lab Laboratory Tests Test 12/23/16 12:20 12/23/16 18:08 12/24/16 00:20 12/24/16 06:25 Glucose (Fingerstick) 113 mg/dL (70-99) 120 mg/dL (70-99) 102 mg/dL (70-99) White Blood Count 3.0 x10^3/uL (4.0-11.0) Red Blood Count 2.59 x10^6/uL (3.50-5.40) Hemoglobin 7.8 g/dL (12.0-15.5) Hematocrit 23.5 % (36.0-47.0) Mean Corpuscular Volume 91 fL (79-100) Mean Corpuscular Hemoglobin 30 pg (25-35) Mean Corpuscular Hemoglobin Concent 33 g/dL (31-37) Red Cell Distribution Width 16.3 % (11.5-14.5) Platelet Count 69 x10^3/uL (140-400) Neutrophils (%) (Auto) 70 % (31-73) Lymphocytes (%) (Auto) 22 % (24-48) Monocytes (%) (Auto) 8 % (0-9) Eosinophils (%) (Auto) 0 % (0-3) Basophils (%) (Auto) 1 % (0-3) Neutrophils # (Auto) 2.1 x10^3uL (1.8-7.7) Lymphocytes # (Auto) 0.7 x10^3/uL (1.0-4.8) Monocytes # (Auto) 0.2 x10^3/uL (0.0-1.1) Eosinophils # (Auto) 0.0 x10^3/uL (0.0-0.7) Basophils # (Auto) 0.0 x10^3/uL (0.0-0.2) Sodium Level 146 mmol/L (136-145) Potassium Level 3.5 mmol/L (3.5-5.1) Chloride Level 110 mmol/L (98-107) Carbon Dioxide Level 31 mmol/L (21-32) Anion Gap 5 (6-14) Blood Urea Nitrogen 32 mg/dL (7-20) Creatinine 1.0 mg/dL (0.6-1.0) Estimated GFR (Cockcroft-Gault) 69.4 Glucose Level 114 mg/dL (70-99) Calcium Level 8.1 mg/dL (8.5-10.1) Test 12/24/16 06:27 Glucose (Fingerstick) 114 mg/dL (70-99) Micro BLOOD CULTURE PRL Final Final report BLD CULT RESULT 1 Final Staphylococcus aureus Recovered from aerobic and anaerobic bottles. Methicillin resistant (MRSA) Based on resistance to oxacillin this isolate would be resistant to all currently available beta-lactam antimicrobial agents, with the exception of the newer cephalosporins with anti-MRSA activity, such as Ceftaroline ANTIMICROBIAL SUSCEPTIBILITY Final Comment S = Susceptible; I = Intermediate; R = Resistant P = Positive; N = Negative MICS are expressed in micrograms per mL Antibiotic RSLT#1 RSLT#2 RSLT#3 RSLT#4 Ciprofloxacin S Gentamicin S Levofloxacin S Linezolid S Nitrofurantoin S Oxacillin R Penicillin R Rifampin S Tetracycline S Trimethoprim/Sulfa S Vancomycin S Performed at: [facility] [address], [place], [place] [id number] Security Software Engineer: Evelyn Reyes MD, Phone: [phone] Objective Assessment Sepsis. POA Hypotension, now off pressor Pancytopenia PCN allergy, reaction unknown Acute encephalopathy LEONARDO Acute respiratory failure h/o breast cancer, s/p chemo. Port still in place Lupus on Plaquenil Recent E. coli UTI MRSA nares, 11/25, 12/06 and sputum Diarrhea. C. diff. neg 12/06 BC + MRSA Plan Plan of Care Given thrombocytopenia (avoid Zyvox and has bacteremia)/Acute resp failure ( Avoid Dapto no lung coverage) ? ant chest rash and ? Vanc kinetics - will cont Teflaro to cover lung and blood. Monitor WBC, Cr Supportive care Trach scheduled for Friday. Per GI, peg deferred due to high risk of leakage in the setting of ascites. Dobbhoff feedings recommended. d/c cv line picc repeat AMANDA MARC MD Dec 24, 2016 07:48
[2016-12-24] MEDS: buPROPion 100 MG TABLET PO SCH ×2 (08:25→21:14)
[2016-12-24] MEDS: ALPRAZolam 0.25 MG TABLET PO SCH (08:25)
[2016-12-24] MEDS: NYSTATIN TOPICAL POWDER 15GM BOTTLE. TP SCH ×2 (08:25→21:15)
[2016-12-24] MEDS: FAMOTIDINE 20 MG/2 ML VIAL IVP SCH ×2 (08:26→21:13)
[2016-12-24] MEDS: CHLORHEXIDINE 0.12% 15 ML MOUTHWASH. MM SCH ×2 (08:26→21:14)
[2016-12-24] MEDS: FUROSEMIDE 20 MG/2 ML VIAL. IVP SCH (08:27)
[2016-12-24] MEDS: HYDROCORTISONE SOD SUCC/PF 100 MG/2 ML VIAL. IV SCH (08:27)
[2016-12-24] MEDS: fentaNYL PF VIAL 100 MCG/2 ML VIAL IV PRN ×2 (08:27→16:55)
--- NOTE | 2016-12-24 09:14 | PDOC ---
SURGICAL PROGRESS NOTE Subjective trach intact Vital Signs Vital Signs Date Time Temp Pulse Resp B/P (MAP) Pulse Ox O2 Delivery O2 Flow Rate FiO2 12/24/16 08:57 97 Ventilator 12/24/16 08:27 3.0 12/24/16 06:00 62 14 130/64 (86) 12/24/16 03:00 98.0 98.0 I&O Intake and Output 12/24/16 07:00 Intake Total 2193.85 ml Output Total 1500 ml Balance 693.85 ml Intake Oral 0 ml IV Total 628.85 ml Tube Feeding 1565 ml Output Urine Total 1500 ml General: Alert, Cooperative HEENT: Other (trach dry) Labs Laboratory Tests Test 12/22/16 12:02 12/22/16 18:31 12/23/16 05:50 12/23/16 06:40 Glucose (Fingerstick) 121 mg/dL (70-99) 103 mg/dL (70-99) White Blood Count 2.6 x10^3/uL (4.0-11.0) Red Blood Count 2.47 x10^6/uL (3.50-5.40) Hemoglobin 7.4 g/dL (12.0-15.5) Hematocrit 22.3 % (36.0-47.0) Mean Corpuscular Volume 91 fL (79-100) Mean Corpuscular Hemoglobin 30 pg (25-35) Mean Corpuscular Hemoglobin Concent 33 g/dL (31-37) Red Cell Distribution Width 16.2 % (11.5-14.5) Platelet Count 68 x10^3/uL (140-400) Neutrophils (%) (Auto) 66 % (31-73) Lymphocytes (%) (Auto) 25 % (24-48) Monocytes (%) (Auto) 8 % (0-9) Eosinophils (%) (Auto) 1 % (0-3) Basophils (%) (Auto) 1 % (0-3) Neutrophils # (Auto) 1.7 x10^3uL (1.8-7.7) Lymphocytes # (Auto) 0.7 x10^3/uL (1.0-4.8) Monocytes # (Auto) 0.2 x10^3/uL (0.0-1.1) Eosinophils # (Auto) 0.0 x10^3/uL (0.0-0.7) Basophils # (Auto) 0.0 x10^3/uL (0.0-0.2) Sodium Level 145 mmol/L (136-145) Potassium Level 3.2 mmol/L (3.5-5.1) Chloride Level 109 mmol/L (98-107) Carbon Dioxide Level 30 mmol/L (21-32) Anion Gap 6 (6-14) Blood Urea Nitrogen 33 mg/dL (7-20) Creatinine 0.9 mg/dL (0.6-1.0) Estimated GFR (Cockcroft-Gault) 78.4 Glucose Level 97 mg/dL (70-99) Calcium Level 8.3 mg/dL (8.5-10.1) Prothrombin Time 15.1 SEC (11.7-14.0) Prothromb Time International Ratio 1.3 (0.8-1.1) Activated Partial Thromboplast Time 27 SEC (24-38) Test 12/23/16 12:20 12/23/16 18:08 12/24/16 00:20 12/24/16 06:25 Glucose (Fingerstick) 113 mg/dL (70-99) 120 mg/dL (70-99) 102 mg/dL (70-99) White Blood Count 3.0 x10^3/uL (4.0-11.0) Red Blood Count 2.59 x10^6/uL (3.50-5.40) Hemoglobin 7.8 g/dL (12.0-15.5) Hematocrit 23.5 % (36.0-47.0) Mean Corpuscular Volume 91 fL (79-100) Mean Corpuscular Hemoglobin 30 pg (25-35) Mean Corpuscular Hemoglobin Concent 33 g/dL (31-37) Red Cell Distribution Width 16.3 % (11.5-14.5) Platelet Count 69 x10^3/uL (140-400) Neutrophils (%) (Auto) 70 % (31-73) Lymphocytes (%) (Auto) 22 % (24-48) Monocytes (%) (Auto) 8 % (0-9) Eosinophils (%) (Auto) 0 % (0-3) Basophils (%) (Auto) 1 % (0-3) Neutrophils # (Auto) 2.1 x10^3uL (1.8-7.7) Lymphocytes # (Auto) 0.7 x10^3/uL (1.0-4.8) Monocytes # (Auto) 0.2 x10^3/uL (0.0-1.1) Eosinophils # (Auto) 0.0 x10^3/uL (0.0-0.7) Basophils # (Auto) 0.0 x10^3/uL (0.0-0.2) Sodium Level 146 mmol/L (136-145) Potassium Level 3.5 mmol/L (3.5-5.1) Chloride Level 110 mmol/L (98-107) Carbon Dioxide Level 31 mmol/L (21-32) Anion Gap 5 (6-14) Blood Urea Nitrogen 32 mg/dL (7-20) Creatinine 1.0 mg/dL (0.6-1.0) Estimated GFR (Cockcroft-Gault) 69.4 Glucose Level 114 mg/dL (70-99) Calcium Level 8.1 mg/dL (8.5-10.1) Test 12/24/16 06:27 Glucose (Fingerstick) 114 mg/dL (70-99) Laboratory Tests Test 12/23/16 12:20 12/23/16 18:08 12/24/16 00:20 12/24/16 06:25 Glucose (Fingerstick) 113 mg/dL (70-99) 120 mg/dL (70-99) 102 mg/dL (70-99) White Blood Count 3.0 x10^3/uL (4.0-11.0) Red Blood Count 2.59 x10^6/uL (3.50-5.40) Hemoglobin 7.8 g/dL (12.0-15.5) Hematocrit 23.5 % (36.0-47.0) Mean Corpuscular Volume 91 fL (79-100) Mean Corpuscular Hemoglobin 30 pg (25-35) Mean Corpuscular Hemoglobin Concent 33 g/dL (31-37) Red Cell Distribution Width 16.3 % (11.5-14.5) Platelet Count 69 x10^3/uL (140-400) Neutrophils (%) (Auto) 70 % (31-73) Lymphocytes (%) (Auto) 22 % (24-48) Monocytes (%) (Auto) 8 % (0-9) Eosinophils (%) (Auto) 0 % (0-3) Basophils (%) (Auto) 1 % (0-3) Neutrophils # (Auto) 2.1 x10^3uL (1.8-7.7) Lymphocytes # (Auto) 0.7 x10^3/uL (1.0-4.8) Monocytes # (Auto) 0.2 x10^3/uL (0.0-1.1) Eosinophils # (Auto) 0.0 x10^3/uL (0.0-0.7) Basophils # (Auto) 0.0 x10^3/uL (0.0-0.2) Sodium Level 146 mmol/L (136-145) Potassium Level 3.5 mmol/L (3.5-5.1) Chloride Level 110 mmol/L (98-107) Carbon Dioxide Level 31 mmol/L (21-32) Anion Gap 5 (6-14) Blood Urea Nitrogen 32 mg/dL (7-20) Creatinine 1.0 mg/dL (0.6-1.0) Estimated GFR (Cockcroft-Gault) 69.4 Glucose Level 114 mg/dL (70-99) Calcium Level 8.1 mg/dL (8.5-10.1) Test 12/24/16 06:27 Glucose (Fingerstick) 114 mg/dL (70-99) Problem List Problems Medical Problems: (1) Respiratory failure Status: Acute Assessment/Plan s/p trach no acute bleeding, stable continue medical care Problems: MIKO LORENZO APRN Dec 24, 2016 09:14
--- NOTE | 2016-12-24 11:12 | PDOC ---
PROGRESS NOTES Chief Complaint Chief Complaint 1 AMS 2 Sepsis 3 MRSA bacteremia 4 Septic shock 5 Metabolic encephalopathy 6 Acute respiratory failure 7 Anemia 8 LEONARDO on CKD2-3 9 Hyponatremia 10 Hypokalemia 11 HCV cirrhosis 12 DM 13 SLE 14 Knee pain 15 Petechial rash 16 Hypoalbuminemia 17 Malnutrition 18 Urinary tract infection, E.coli, pansensitive 19 Hx breast CA History of Present Illness History of Present Illness The patient has had a tracheotomy put in place yesterday. Patient is communicating with arm movements, writing and gestures. Patient wanted ice chips for mouth dryness. Eagerly awaiting central line placement. Vent settings spont/500ml/30% Vitals Vitals Vital Signs Date Time Temp Pulse Resp B/P (MAP) Pulse Ox O2 Delivery O2 Flow Rate FiO2 12/24/16 08:57 97 Ventilator 12/24/16 08:57 3.0 12/24/16 06:00 62 14 130/64 (86) 12/24/16 03:00 98.0 98.0 Physical Exam General: Alert, Cooperative Heart: Regular rate, Other (3 out of 6 systolic murmur) Lungs: Clear Abdomen: Normal bowel sounds, Soft, No tenderness Extremities: No clubbing, Other (2+ edema) Skin: Other (few small echymoses over UE) Labs LABS Laboratory Tests Test 12/23/16 12:20 12/23/16 18:08 12/24/16 00:20 12/24/16 06:25 Glucose (Fingerstick) 113 mg/dL (70-99) 120 mg/dL (70-99) 102 mg/dL (70-99) White Blood Count 3.0 x10^3/uL (4.0-11.0) Red Blood Count 2.59 x10^6/uL (3.50-5.40) Hemoglobin 7.8 g/dL (12.0-15.5) Hematocrit 23.5 % (36.0-47.0) Mean Corpuscular Volume 91 fL (79-100) Mean Corpuscular Hemoglobin 30 pg (25-35) Mean Corpuscular Hemoglobin Concent 33 g/dL (31-37) Red Cell Distribution Width 16.3 % (11.5-14.5) Platelet Count 69 x10^3/uL (140-400) Neutrophils (%) (Auto) 70 % (31-73) Lymphocytes (%) (Auto) 22 % (24-48) Monocytes (%) (Auto) 8 % (0-9) Eosinophils (%) (Auto) 0 % (0-3) Basophils (%) (Auto) 1 % (0-3) Neutrophils # (Auto) 2.1 x10^3uL (1.8-7.7) Lymphocytes # (Auto) 0.7 x10^3/uL (1.0-4.8) Monocytes # (Auto) 0.2 x10^3/uL (0.0-1.1) Eosinophils # (Auto) 0.0 x10^3/uL (0.0-0.7) Basophils # (Auto) 0.0 x10^3/uL (0.0-0.2) Sodium Level 146 mmol/L (136-145) Potassium Level 3.5 mmol/L (3.5-5.1) Chloride Level 110 mmol/L (98-107) Carbon Dioxide Level 31 mmol/L (21-32) Anion Gap 5 (6-14) Blood Urea Nitrogen 32 mg/dL (7-20) Creatinine 1.0 mg/dL (0.6-1.0) Estimated GFR (Cockcroft-Gault) 69.4 Glucose Level 114 mg/dL (70-99) Calcium Level 8.1 mg/dL (8.5-10.1) Test 12/24/16 06:27 Glucose (Fingerstick) 114 mg/dL (70-99) Review of Systems Review of Systems Admits to mouth dryness. Denies acute issues: BAKER, nausea, vomiting. 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 Trach was performed yesterday will continue to monitor for complications 2. WBC now stable ~3, plts ~69, prob reflecting untreated HCV; cont to recheck BMP and CBC tomorrow 3. Na 146 today, cont to monitor 4. K 3.5 today, will cont to monitor 5. Dobhoff in place 6. cont Teflaro per ID for blood and pulm coverage 7. DM well controlled, glucose 114 today 8. continue PO/TD meds for knee pain 9. continue nystatin powder for petechial rash in intertrichial folds 10. Appreciate subspecialty input 11. Awaiting central line placement 12. Discussed plan with nursing staff 13. Vent settings: spont/500ml/30% Problems: Comment Review of Relevant I have reviewed the following items anselmo (where applicable) has been applied. Labs Laboratory Tests Test 12/22/16 12:02 12/22/16 18:31 12/23/16 05:50 12/23/16 06:40 Glucose (Fingerstick) 121 mg/dL (70-99) 103 mg/dL (70-99) White Blood Count 2.6 x10^3/uL (4.0-11.0) Red Blood Count 2.47 x10^6/uL (3.50-5.40) Hemoglobin 7.4 g/dL (12.0-15.5) Hematocrit 22.3 % (36.0-47.0) Mean Corpuscular Volume 91 fL (79-100) Mean Corpuscular Hemoglobin 30 pg (25-35) Mean Corpuscular Hemoglobin Concent 33 g/dL (31-37) Red Cell Distribution Width 16.2 % (11.5-14.5) Platelet Count 68 x10^3/uL (140-400) Neutrophils (%) (Auto) 66 % (31-73) Lymphocytes (%) (Auto) 25 % (24-48) Monocytes (%) (Auto) 8 % (0-9) Eosinophils (%) (Auto) 1 % (0-3) Basophils (%) (Auto) 1 % (0-3) Neutrophils # (Auto) 1.7 x10^3uL (1.8-7.7) Lymphocytes # (Auto) 0.7 x10^3/uL (1.0-4.8) Monocytes # (Auto) 0.2 x10^3/uL (0.0-1.1) Eosinophils # (Auto) 0.0 x10^3/uL (0.0-0.7) Basophils # (Auto) 0.0 x10^3/uL (0.0-0.2) Sodium Level 145 mmol/L (136-145) Potassium Level 3.2 mmol/L (3.5-5.1) Chloride Level 109 mmol/L (98-107) Carbon Dioxide Level 30 mmol/L (21-32) Anion Gap 6 (6-14) Blood Urea Nitrogen 33 mg/dL (7-20) Creatinine 0.9 mg/dL (0.6-1.0) Estimated GFR (Cockcroft-Gault) 78.4 Glucose Level 97 mg/dL (70-99) Calcium Level 8.3 mg/dL (8.5-10.1) Prothrombin Time 15.1 SEC (11.7-14.0) Prothromb Time International Ratio 1.3 (0.8-1.1) Activated Partial Thromboplast Time 27 SEC (24-38) Test 12/23/16 12:20 12/23/16 18:08 12/24/16 00:20 12/24/16 06:25 Glucose (Fingerstick) 113 mg/dL (70-99) 120 mg/dL (70-99) 102 mg/dL (70-99) White Blood Count 3.0 x10^3/uL (4.0-11.0) Red Blood Count 2.59 x10^6/uL (3.50-5.40) Hemoglobin 7.8 g/dL (12.0-15.5) Hematocrit 23.5 % (36.0-47.0) Mean Corpuscular Volume 91 fL (79-100) Mean Corpuscular Hemoglobin 30 pg (25-35) Mean Corpuscular Hemoglobin Concent 33 g/dL (31-37) Red Cell Distribution Width 16.3 % (11.5-14.5) Platelet Count 69 x10^3/uL (140-400) Neutrophils (%) (Auto) 70 % (31-73) Lymphocytes (%) (Auto) 22 % (24-48) Monocytes (%) (Auto) 8 % (0-9) Eosinophils (%) (Auto) 0 % (0-3) Basophils (%) (Auto) 1 % (0-3) Neutrophils # (Auto) 2.1 x10^3uL (1.8-7.7) Lymphocytes # (Auto) 0.7 x10^3/uL (1.0-4.8) Monocytes # (Auto) 0.2 x10^3/uL (0.0-1.1) Eosinophils # (Auto) 0.0 x10^3/uL (0.0-0.7) Basophils # (Auto) 0.0 x10^3/uL (0.0-0.2) Sodium Level 146 mmol/L (136-145) Potassium Level 3.5 mmol/L (3.5-5.1) Chloride Level 110 mmol/L (98-107) Carbon Dioxide Level 31 mmol/L (21-32) Anion Gap 5 (6-14) Blood Urea Nitrogen 32 mg/dL (7-20) Creatinine 1.0 mg/dL (0.6-1.0) Estimated GFR (Cockcroft-Gault) 69.4 Glucose Level 114 mg/dL (70-99) Calcium Level 8.1 mg/dL (8.5-10.1) Test 12/24/16 06:27 Glucose (Fingerstick) 114 mg/dL (70-99) Laboratory Tests Test 12/23/16 12:20 12/23/16 18:08 12/24/16 00:20 12/24/16 06:25 Glucose (Fingerstick) 113 mg/dL (70-99) 120 mg/dL (70-99) 102 mg/dL (70-99) White Blood Count 3.0 x10^3/uL (4.0-11.0) Red Blood Count 2.59 x10^6/uL (3.50-5.40) Hemoglobin 7.8 g/dL (12.0-15.5) Hematocrit 23.5 % (36.0-47.0) Mean Corpuscular Volume 91 fL (79-100) Mean Corpuscular Hemoglobin 30 pg (25-35) Mean Corpuscular Hemoglobin Concent 33 g/dL (31-37) Red Cell Distribution Width 16.3 % (11.5-14.5) Platelet Count 69 x10^3/uL (140-400) Neutrophils (%) (Auto) 70 % (31-73) Lymphocytes (%) (Auto) 22 % (24-48) Monocytes (%) (Auto) 8 % (0-9) Eosinophils (%) (Auto) 0 % (0-3) Basophils (%) (Auto) 1 % (0-3) Neutrophils # (Auto) 2.1 x10^3uL (1.8-7.7) Lymphocytes # (Auto) 0.7 x10^3/uL (1.0-4.8) Monocytes # (Auto) 0.2 x10^3/uL (0.0-1.1) Eosinophils # (Auto) 0.0 x10^3/uL (0.0-0.7) Basophils # (Auto) 0.0 x10^3/uL (0.0-0.2) Sodium Level 146 mmol/L (136-145) Potassium Level 3.5 mmol/L (3.5-5.1) Chloride Level 110 mmol/L (98-107) Carbon Dioxide Level 31 mmol/L (21-32) Anion Gap 5 (6-14) Blood Urea Nitrogen 32 mg/dL (7-20) Creatinine 1.0 mg/dL (0.6-1.0) Estimated GFR (Cockcroft-Gault) 69.4 Glucose Level 114 mg/dL (70-99) Calcium Level 8.1 mg/dL (8.5-10.1) Test 12/24/16 06:27 Glucose (Fingerstick) 114 mg/dL (70-99) Microbiology 12/14/16 Blood Culture - Final, Complete NO GROWTH AFTER 5 DAYS 12/09/16 Stool Culture - Final, Complete 12/09/16 Stool Culture Result 1 (LUCINA) - Final, Complete 12/09/16 Campylobacter Antigen Assay - Final, Complete 12/09/16 Campylobactor Result 1 - Final, Complete 12/09/16 Shiga Toxin Test - Final, Complete 12/17/16 Gram Stain - Final, Complete 12/06/16 Urine Culture - Final, Complete 12/06/16 Urine Culture Result 1 (LUCINA) - Final, Complete 12/17/16 Gram Stain - Final, Complete Medications Current Medications Sodium Chloride 1,000 ml @ 1,000 mls/hr 1X ONCE IV Last administered on 16:18; Start 12/06/16 at 16:15; Stop 12/06/16 at 17:14; Status DC Vancomycin HCl (Vanco Per Pharmacy) 1 each PRN DAILY PRN MC SEE COMMENTS Last administered on 12/15/16 15:18; Start 12/06/16 at 17:00; Stop 12/16/16 at 09:58 ; Status DC Levofloxacin/ Dextrose 150 ml @ 100 mls/hr 1X ONCE IV Last administered on 20:04; Start 12/06/16 at 17:00; Stop 12/06/16 at 18:29; Status DC Vancomycin HCl 2 gm/Sodium Chloride 500 ml @ 250 mls/hr 1X ONCE IV Last administered on 12/06/16 17:11; Start 12/06/16 at 17:00; Stop 12/06/16 at 18:59 ; Status DC Sodium Chloride 1,000 ml @ 1,000 mls/hr 1X ONCE IV Last administered on 17:09; Start 12/06/16 at 17:00; Stop 12/06/16 at 17:59; Status DC Meropenem 500 mg/ Sodium Chloride 50 ml @ 100 mls/hr Q8HRS IV Last administered on 12/10/16 07:30; Start 12/06/16 at 18:00; Stop 12/10/16 at 08:13 ; Status DC Dopamine HCl/ Dextrose 250 ml @ 16.414 mls/ hr 1X ONCE IV Last administered on 12/06/16 17:41; Start 12/06/16 at 17:15; Stop 12/07/16 at 08:28; Status DC Etomidate (Amidate) 20 mg 1X ONCE IV Last administered on 12/06/16 17:19; Start 12/06/16 at 17:15; Stop 12/06/16 at 17:17; Status DC Succinylcholine Chloride (Anectine) 100 mg 1X ONCE IV Last administered on 17:20; Start 12/06/16 at 17:15; Stop 12/06/16 at 17:17; Status DC Vancomycin HCl 1.25 gm/Sodium Chloride 250 ml @ 167 mls/hr Q24H IV Last administered on 12/07/16 18:39; Start 12/07/16 at 17:00; Stop 12/07/16 at 23:00 ; Status DC Vancomycin HCl 1 each 1X ONCE MC ; Start 12/07/16 at 16:30; Stop 12/07/16 at 16 :31; Status Cancel Midazolam HCl 100 ml @ As Directed STK-MED ONCE IV ; Start 12/06/16 at 17:36; Stop 12/06/16 at 17:37; Status DC Midazolam HCl (Versed) 5 mg STK-MED ONCE .ROUTE ; Start 12/06/16 at 17:37; Stop 12/06/16 at 17:38; Status DC Midazolam HCl (Versed) 5 mg PRN Q10MIN PRN IV SEDATION; Start 12/06/16 at 17:45 ; Stop 12/21/16 at 11:15; Status DC Hydrocortisone Sodium Succinate (Solu-CORTEF) 100 mg Q8HRS IV Last administered on 12/09/16 13:55; Start 12/06/16 at 18:30; Stop 12/09/16 at 16:21 ; Status DC Norepinephrine Bitartrate 16 mg/ Sodium Chloride 266 ml @ 0 mls/hr CONT PRN IV SEE I/O RECORD; Start 12/06/16 at 19:00; Status UNV Pantoprazole Sodium (Protonix Vial) 40 mg DAILYAC IVP Last administered on 12/15 08:40; Start 12/06/16 at 19:30; Stop 12/15/16 at 10:35; Status DC Acetaminophen (Tylenol) 325 mg PRN Q6HRS PRN PO MILD PAIN / TEMP; Start at 19:00; Stop 12/21/16 at 11:15; Status DC Hydralazine HCl (Apresoline) 10 mg PRN Q4HRS PRN IVP ELEVATED BP, SEE COMMENTS Last administered on 12/17/16 12:26; Start 12/06/16 at 19:00 Ondansetron HCl (Zofran) 4 mg PRN Q8HRS PRN IV NAUSEA/VOMITING; Start 12/06/16 at 19:00; Stop 12/12/16 at 08:31; Status DC Albuterol Sulfate (Ventolin Neb Soln) 2.5 mg PRN Q4HRS PRN NEB SHORTNESS OF BREATH Last administered on 12/16/16 00:43; Start 12/06/16 at 19:00 Norepinephrine Bitartrate 250 ml @ 1.875 mls/ hr CONT PRN IV SEE I/O RECORD Last administered on 12/06/16 19:55; Start 12/06/16 at 19:00; Stop 12/15/16 at 10:33; Status DC Sodium Chloride 1,000 ml @ 1,000 mls/hr 1X ONCE IV Last administered on 19:56; Start 12/06/16 at 19:15; Stop 12/06/16 at 20:14; Status DC Sodium Chloride 1,000 ml @ 75 mls/hr [id number] IV Last administered on 21:55; Start 12/06/16 at 19:15; Stop 12/09/16 at 18:44; Status DC Pneumococcal Polyvalent Vaccine (Do NOT chart on this placeholder) 1 each PRN DAILY PRN MC PT UNABLE TO RESPOND; Start 12/07/16 at 09:30; Status Cancel Pneumococcal Polyvalent Vaccine (Pneumovax 23) 0.5 ml ONCE ONCE VAX IM ; Start 12/08/16 at 09:00; Stop 12/08/16 at 09:01; Status DC Albuterol/ Ipratropium (Duoneb) 3 ml RTQID NEB Last administered on 12/24/16 11 :01; Start 12/07/16 at 12:00 Midazolam HCl 100 ml @ 0 mls/hr CONT PRN IV SEE I/O RECORD Last administered on 12/07/16 10:29; Start 12/07/16 at 10:15; Stop 12/13/16 at 20:41; Status DC Fentanyl Citrate (Fentanyl 2ml Vial) 25 mcg PRN Q1HR PRN IV PAIN Last administered on 12/24/16 08:27; Start 12/07/16 at 10:45 Pantoprazole Sodium (Protonix Vial) 40 mg DAILYAC IVP ; Start 12/07/16 at 17:00 ; Status Cancel Vancomycin HCl 1.25 gm/Sodium Chloride 250 ml @ 167 mls/hr Q12H IV Last administered on 12/13/16 18:25; Start 12/08/16 at 06:00; Stop 12/13/16 at 18:54 ; Status DC Vancomycin HCl 1 each 1X ONCE MC ; Start 12/08/16 at 17:30; Stop 12/08/16 at 17 :31; Status DC Vancomycin HCl 1 gm/Sodium Chloride 250 ml @ 250 mls/hr Q12H IV ; Start at 18:00; Status Cancel Chlorhexidine Gluconate (Peridex) 15 ml BID SWSP ; Start 12/09/16 at 21:00; Stop 12/10/16 at 07:23; Status DC Hydrocortisone Sodium Succinate (Solu-CORTEF) 100 mg Q12HR IV Last administered on 12/14/16 08:53; Start 12/09/16 at 21:00; Stop 12/14/16 at 16:52 ; Status DC Amino Acids/ Glycerin/ Electrolytes 1,000 ml @ 40 mls/hr Q24H IV Last administered on 12/09/16 17:56; Start 12/09/16 at 17:00; Stop 12/10/16 at 14:16 ; Status DC Alprazolam (Xanax) 0.25 mg DAILY PO Last administered on 12/24/16 08:25; Start 12/10/16 at 09:00 Bupropion HCl (Wellbutrin) 100 mg BID PO Last administered on 12/24/16 08:25; Start 12/09/16 at 21:00 Gabapentin (Neurontin) 300 mg BID PO ; Start 12/09/16 at 21:00; Status Cancel Ropinirole HCl (Requip) 0.25 mg QHS PO Last administered on 12/23/16 22:03; Start 12/09/16 at 21:00 Pregabalin (Lyrica) 150 mg DAILY PO Last administered on 12/19/16 08:16; Start 12/10/16 at 09:00; Stop 12/19/16 at 18:41; Status DC Epinephrine (S2 Racepinephrine) 0.5 ml 1X ONCE NEB Last administered on 07:45; Start 12/10/16 at 07:45; Stop 12/10/16 at 07:46; Status DC Lorazepam (Ativan) 2 mg 1X ONCE IV Last administered on 12/10/16 08:33; Start 12/10/16 at 08:00; Stop 12/10/16 at 08:01; Status DC Succinylcholine Chloride (Anectine) 200 mg STK-MED ONCE .ROUTE ; Start 12/10/16 at 10:28; Stop 12/10/16 at 10:29; Status DC Propofol 100 ml @ As Directed STK-MED ONCE IV ; Start 12/10/16 at 10:28; Stop 12/10/16 at 10:29; Status DC Calcium Gluconate (Calcium Gluconate) 1,000 mg 1X ONCE IVP Last administered on 12/10/16 11:41; Start 12/10/16 at 11:30; Stop 12/10/16 at 11:31; Status DC Succinylcholine Chloride (Anectine) 200 mg 1X ONCE IV Last administered on 11:41; Start 12/10/16 at 11:30; Stop 12/10/16 at 11:31; Status DC Propofol 100 ml @ 0 mls/hr CONT PRN IV SEE I/O RECORD Last administered on 12/13 00:57; Start 12/10/16 at 11:30; Stop 12/13/16 at 20:41; Status DC Insulin Aspart (NovoLOG) 0-5 UNITS TIDWMEALS SQ ; Start 12/11/16 at 08:00; Stop 12/11/16 at 08:00; Status DC Dextrose (Dextrose 50%-Water Syringe) 12.5 gm PRN Q15MIN PRN IV SEE COMMENTS; Start 12/10/16 at 20:30 Insulin Aspart (NovoLOG) 0-5 UNITS Q6HRS SQ Last administered on 12/19/16 11: 57; Start 12/11/16 at 00:00 Chlorhexidine Gluconate (Peridex) 15 ml BID MM Last administered on 12/13/16 09:46; Start 12/11/16 at 21:00; Stop 12/13/16 at 20:41; Status DC Fentanyl Citrate (Fentanyl 2ml Vial) 25 mcg PRN Q5MIN PRN IV MILD PAIN; Start 12/12/16 at 07:00; Stop 12/13/16 at 06:59; Status DC Fentanyl Citrate (Fentanyl 2ml Vial) 50 mcg PRN Q5MIN PRN IV MODERATE PAIN; Start 12/12/16 at 07:00; Stop 12/13/16 at 06:59; Status DC Morphine Sulfate 1 mg PRN Q10MIN PRN IV SEVERE PAIN; Start 12/12/16 at 07:00; Stop 12/13/16 at 06:59; Status DC Ringer's Solution 1,000 ml @ 30 mls/hr Q24H IV ; Start 12/12/16 at 07:00; Stop 12/12/16 at 18:59; Status DC Lidocaine HCl 2 ml PRN 1X PRN ID PRIOR TO IV START; Start 12/12/16 at 07:00; Stop 12/13/16 at 06:59; Status DC Hydromorphone HCl (Dilaudid) 0.5 mg PRN Q10MIN PRN IV SEV PAIN, Second choice; Start 12/12/16 at 07:00; Stop 12/13/16 at 06:59; Status DC Prochlorperazine Edisylate (Compazine) 5 mg PACU PRN PRN IV NAUSEA, MRX1; Start 12/12/16 at 07:00; Stop 12/13/16 at 06:59; Status DC Lidocaine HCl (Lidocaine Pf 2% Vial) 5 ml STK-MED ONCE .ROUTE ; Start 12/12/16 at 08:15; Stop 12/12/16 at 08:16; Status DC Propofol 0 ml @ As Directed STK-MED ONCE IV ; Start 12/12/16 at 08:15; Stop at 08:16; Status DC Ondansetron HCl (Zofran) 4 mg PRN Q6HRS PRN IV NAUSEA/VOMITING Last administered on 12/14/16 01:41; Start 12/12/16 at 19:00 Acetaminophen (Tylenol) 650 mg PRN Q6HRS PRN PEG MILD PAIN / TEMP Last administered on 12/15/16 17:25; Start 12/12/16 at 08:30 Vancomycin HCl 1 each 1X ONCE MC Last administered on 12/13/16 10:00; Start 12/13/16 at 10:00; Stop 12/13/16 at 10:01; Status DC Furosemide (Lasix) 40 mg 1X ONCE IVP Last administered on 12/13/16 11:31; Start 12/13/16 at 11:15; Stop 12/13/16 at 11:16; Status DC Amino Acids/ Glycerin/ Electrolytes 1,000 ml @ 75 mls/hr [id number] IV Last administered on 12/15/16 04:25; Start 12/13/16 at 21:00; Stop 12/15/16 at 10:33 ; Status DC Vancomycin HCl 1 each 1X ONCE MC Last administered on 12/14/16 09:00; Start 12/14/16 at 09:00; Stop 12/14/16 at 09:01; Status DC Vancomycin HCl 1 each 1X ONCE MC ; Start 12/15/16 at 06:00; Stop 12/15/16 at 06 :01; Status Cancel Vancomycin HCl 1 each 1X ONCE MC Last administered on 12/15/16 06:00; Start 12/15/16 at 06:00; Stop 12/15/16 at 06:01; Status DC Alteplase, Recombinant (Cathflo) 2 mg 1X ONCE INT CAT Last administered on 14:58; Start 12/14/16 at 14:30; Stop 12/14/16 at 14:34; Status DC Hydrocortisone Sodium Succinate (Solu-CORTEF) 100 mg DAILY IV Last administered on 12/19/16 08:17; Start 12/15/16 at 09:00; Stop 12/19/16 at 10:04 ; Status DC Haloperidol Lactate (Haldol) 2.5 mg PRN Q4HRS PRN IVP AGITATION Last administered on 12/15/16 20:35; Start 12/15/16 at 06:45 Lansoprazole (Prevacid) 30 mg DAILYAC FT ; Start 12/16/16 at 07:30; Stop at 10:00; Status DC Vancomycin HCl 1 gm/Sodium Chloride 250 ml @ 250 mls/hr Q48H IV ; Start at 21:00; Status Cancel Morphine Sulfate 2 mg PRN Q2HR PRN IV SEVERE PAIN Last administered on 09:51; Start 12/15/16 at 21:15; Stop 12/21/16 at 11:15; Status DC Zolpidem Tartrate (Ambien) 5 mg PRN QHS PRN PO INSOMNIA Last administered on 00:17; Start 12/16/16 at 00:00 Propofol 100 ml @ As Directed STK-MED ONCE IV ; Start 12/16/16 at 02:34; Stop 12/16/16 at 02:35; Status DC Succinylcholine Chloride (Anectine) 200 mg STK-MED ONCE .ROUTE ; Start 12/16/16 at 02:57; Stop 12/16/16 at 02:58; Status DC Succinylcholine Chloride (Anectine) 200 mg STK-MED ONCE .ROUTE ; Start 12/16/16 at 02:57; Stop 12/16/16 at 02:58; Status DC Etomidate (Amidate) 20 mg STK-MED ONCE IV ; Start 12/16/16 at 02:58; Stop at 02:59; Status DC Propofol 100 ml @ 0 mls/hr CONT PRN IV SEE I/O RECORD; Start 12/16/16 at 04:15 ; Stop 12/16/16 at 08:04; Status DC Chlorhexidine Gluconate (Peridex) 15 ml BID MM Last administered on 12/24/16 08 :26; Start 12/16/16 at 09:00 Propofol (Diprivan) 1,000 mg STK-MED ONCE IV ; Start 12/16/16 at 03:00; Stop at 07:11; Status DC Furosemide (Lasix) 40 mg DAILY IVP Last administered on 12/21/16 09:03; Start 12/16/16 at 09:00; Stop 12/21/16 at 11:02; Status DC Ceftaroline Fosamil 600 mg/ Sodium Chloride 250 ml @ 250 mls/hr Q8HRS IV Last administered on 12/24/16 06:14; Start 12/16/16 at 10:00 Famotidine (Pepcid) 20 mg BID IVP Last administered on 12/24/16 08:26; Start at 10:30 Propofol 100 ml @ 0 mls/hr CONT PRN IV PER PROTOCOL Last administered on 04:47; Start 12/16/16 at 06:45 Fentanyl Citrate (Fentanyl 2ml Vial) 25 mcg PRN Q5MIN PRN IV MILD PAIN; Start 12/16/16 at 12:45; Stop 12/17/16 at 12:44; Status DC Fentanyl Citrate (Fentanyl 2ml Vial) 50 mcg PRN Q5MIN PRN IV MODERATE PAIN; Start 12/16/16 at 12:45; Stop 12/17/16 at 12:44; Status DC Morphine Sulfate 1 mg PRN Q10MIN PRN IV SEVERE PAIN; Start 12/16/16 at 12:45; Stop 12/17/16 at 12:44; Status DC Ringer's Solution 1,000 ml @ 30 mls/hr Q24H IV ; Start 12/16/16 at 12:32; Stop 12/17/16 at 00:31; Status DC Lidocaine HCl 2 ml PRN 1X PRN ID PRIOR TO IV START; Start 12/16/16 at 12:45; Stop 12/17/16 at 12:44; Status DC Hydromorphone HCl (Dilaudid) 0.5 mg PRN Q10MIN PRN IV SEV PAIN, Second choice; Start 12/16/16 at 12:45; Stop 12/17/16 at 12:44; Status DC Prochlorperazine Edisylate (Compazine) 5 mg PACU PRN PRN IV NAUSEA, MRX1; Start 12/16/16 at 12:45; Stop 12/17/16 at 12:44; Status DC Dextrose/Sodium Chloride 1,000 ml @ 50 mls/hr Q20H IV ; Start 12/16/16 at 13:00 ; Stop 12/16/16 at 13:38; Status DC Potassium Chloride (KCl Oral Soln) 20 meq 1X ONCE PEG Last administered on 11:28; Start 12/17/16 at 11:00; Stop 12/17/16 at 11:01; Status DC Lidocaine/Sodium Bicarbonate (Buffered Lidocaine 1%) 20 ml STK-MED ONCE IJ ; Start 12/17/16 at 14:48; Stop 12/17/16 at 14:49; Status DC Heparin Sodium/ Sodium Chloride 500 ml @ As Directed STK-MED ONCE .ROUTE ; Start 12/17/16 at 14:48; Stop 12/17/16 at 14:49; Status DC Lidocaine/Sodium Bicarbonate (Buffered Lidocaine 1%) 3 ml 1X ONCE IJ Last administered on 12/17/16 16:01; Start 12/17/16 at 15:15; Stop 12/17/16 at 15:16 ; Status DC Heparin Sodium/ Sodium Chloride 60 unit 1X ONCE IV Last administered on 16:02; Start 12/17/16 at 15:15; Stop 12/17/16 at 15:16; Status DC Lidocaine/ Epinephrine (Xylocaine 1%-Epi 1:100,000) 10 ml 1X ONCE INJ Last administered on 12/17/16 16:01; Start 12/17/16 at 15:15; Stop 12/17/16 at 15:16 ; Status DC Gelatin (Gelfoam Size 12-7mm) 1 each STK-MED ONCE .ROUTE ; Start 12/17/16 at 15 :01; Stop 12/17/16 at 15:02; Status DC Iohexol (Omnipaque 300 Mg/ml) 75 ml 1X ONCE IV ; Start 12/18/16 at 14:00; Stop 12/18/16 at 14:01; Status DC Info (Do NOT chart on this entry -- for MONITORING) 1 each PRN DAILY PRN MC SEE COMMENTS; Start 12/18/16 at 14:00; Stop 12/20/16 at 13:59; Status DC Potassium Chloride (Klor-Con) 40 meq Q2H PO Last administered on 12/19/16 14: 51; Start 12/19/16 at 10:00; Stop 12/19/16 at 12:01; Status DC Hydrocortisone Sodium Succinate (Solu-CORTEF) 50 mg DAILY IV Last administered on 12/24/16 08:27; Start 12/20/16 at 09:00 Potassium Chloride 20 meq/ Sodium Chloride 510 ml @ 500 mls/hr 1X ONCE IV Last administered on 12/19/16 11:42; Start 12/19/16 at 11:00; Stop 12/19/16 at 12:01; Status DC Nystatin (Nystop) 1 jimenez BID TP Last administered on 12/24/16 08:25; Start 12/19 at 21:00 Pregabalin (Lyrica) 75 mg [id number] PO Last administered on 12/23/16 23:04; Start 12/19/16 at 21:00 Sodium Chloride 1,000 ml @ 100 mls/hr 1X ONCE IV Last administered on 00:28; Start 12/20/16 at 00:15; Stop 12/20/16 at 10:14; Status DC Fentanyl Citrate (Fentanyl 2ml Vial) 50 mcg PRN Q5MIN PRN IV Acute Pain; Start 12/23/16 at 06:00; Stop 12/23/16 at 06:00; Status DC Morphine Sulfate 4 mg PRN Q10MIN PRN IV Moderate Pain; Start 12/23/16 at 06:00; Stop 12/23/16 at 06:00; Status DC Hydromorphone HCl (Dilaudid) 0.4 mg PRN Q10MIN PRN IV Moderate to severe pain; Start 12/23/16 at 06:00; Stop 12/23/16 at 06:00; Status DC Meperidine HCl (Demerol) 12.5 mg PRN Q5MIN PRN IV SHIVERING; Start 12/23/16 at 06:00; Stop 12/23/16 at 06:00; Status DC Prochlorperazine Edisylate (Compazine) 5 mg PRN Q6HRS PRN IV Nausea/Vomiting, 1st Choice; Start 12/23/16 at 06:00; Stop 12/23/16 at 15:00; Status DC Diphenhydramine HCl (Benadryl) 12.5 mg PRN Q2HR PRN IV ITCHING; Start 12/23/16 at 06:00; Stop 12/23/16 at 15:00; Status DC Furosemide (Lasix) 20 mg DAILY IVP Last administered on 12/24/16 08:27; Start 12/22/16 at 09:00 Acetaminophen/ Hydrocodone Bitart (Lortab 7.5-325/ 15ml Oral Solution) 10 ml PRN Q6HRS PRN PO PAIN; Start 12/21/16 at 11:15 Multi-Ingredient Ointment (Analgesic [place]) 1 jimenez PRN QID PRN TP MUSCLE PAIN Last administered on 12/24/16 06:45; Start 12/21/16 at 11:15 Potassium Chloride 50 ml @ 25 mls/hr Q2H IV Last administered on 12/21/16 16:06 ; Start 12/21/16 at 12:00; Stop 12/21/16 at 15:59; Status DC Potassium Chloride (KCl Oral Soln) 40 meq 1X ONCE PO Last administered on 08:20; Start 12/22/16 at 07:45; Stop 12/22/16 at 07:47; Status DC Fentanyl Citrate (Fentanyl 2ml Vial) 25 mcg PRN Q5MIN PRN IV MILD PAIN; Start 12/23/16 at 06:45; Stop 12/24/16 at 06:44; Status DC Fentanyl Citrate (Fentanyl 2ml Vial) 50 mcg PRN Q5MIN PRN IV MODERATE PAIN; Start 12/23/16 at 06:45; Stop 12/24/16 at 06:44; Status DC Morphine Sulfate 1 mg PRN Q10MIN PRN IV SEVERE PAIN; Start 12/23/16 at 06:45; Stop 12/24/16 at 06:44; Status DC Ringer's Solution 1,000 ml @ 30 mls/hr Q24H IV ; Start 12/23/16 at 06:41; Stop 12/23/16 at 18:40; Status DC Lidocaine HCl 2 ml PRN 1X PRN ID PRIOR TO IV START; Start 12/23/16 at 06:45; Stop 12/24/16 at 06:44; Status DC Hydromorphone HCl (Dilaudid) 0.5 mg PRN Q10MIN PRN IV SEV PAIN, Second choice; Start 12/23/16 at 06:45; Stop 12/24/16 at 06:44; Status DC Prochlorperazine Edisylate (Compazine) 5 mg PACU PRN PRN IV NAUSEA, MRX1; Start 12/23/16 at 06:45; Stop 12/24/16 at 06:44; Status DC Rocuronium [place] (Zemuron) 50 mg STK-MED ONCE .ROUTE ; Start 12/23/16 at 09:51 ; Stop 12/23/16 at 09:52; Status DC Bupivacaine HCl/ Epinephrine Bitart (Marcaine-Epi 0.5%-1:[id number]) 50 ml STK-MED ONCE .ROUTE ; Start 12/23/16 at 09:53; Stop 12/23/16 at 09:54; Status DC Propofol 20 ml @ As Directed STK-MED ONCE IV ; Start 12/23/16 at 09:55; Stop 12/23 at 09:56; Status DC Cellulose 1 each STK-MED ONCE .ROUTE ; Start 12/23/16 at 09:56; Stop 12/23/16 at 09:57; Status DC Dexamethasone Sodium Phosphate (Decadron) 20 mg STK-MED ONCE .ROUTE ; Start 12/23 at 09:57; Stop 12/23/16 at 09:58; Status DC Ondansetron HCl (Zofran) 4 mg STK-MED ONCE .ROUTE ; Start 12/23/16 at 09:57; Stop 12/23/16 at 09:58; Status DC Ephedrine Sulfate 50 mg STK-MED ONCE IV ; Start 12/23/16 at 10:45; Stop 12/23/16 at 10:46; Status DC Fentanyl Citrate (Fentanyl 2ml Vial) 100 mcg STK-MED ONCE .ROUTE ; Start at 10:49; Stop 12/23/16 at 10:50; Status DC Glycopyrrolate (Robinul) 1 mg STK-MED ONCE .ROUTE ; Start 12/23/16 at 11:10; Stop 12/23/16 at 11:11; Status DC Neostigmine Methylsulfate 5 mg STK-MED ONCE .ROUTE ; Start 12/23/16 at 11:10; Stop 12/23/16 at 11:11; Status DC Sevoflurane (Ultane) 30 ml STK-MED ONCE IH ; Start 12/23/16 at 11:12; Stop at 11:13; Status DC Potassium Chloride 50 ml @ 50 mls/hr Q1H IV Last administered on 12/23/16t 14:24 ; Start 12/23/16 at 12:45; Stop 12/23/16 at 14:44; Status DC Amino Acids/ Glycerin/ Electrolytes 1,000 ml @ 75 mls/hr [id number] IV ; Start 12/23/16 at 13:30; Stop 12/23/16 at 17:37; Status DC Lorazepam (Ativan) 0.5 mg PRN Q6HRS PRN IV ANXIETY / AGITATION; Start 12/23/16 at 17:45 Active Scripts Active Ambien (Zolpidem Tartrate) 5 Mg Tablet 5 Mg PO PRN QHS PRN Hydrocodone-Apap 7.5-325/15 Soln (Hydrocodone Bit/Acetaminophen) 15 Ml Solution 15 Ml PO PRN Q6HRS PRN Morphine Sulfate 2 Mg/1 Ml Cartridge 2 Mg IV PRN Q2HR PRN Oxycodone Hcl 5 Mg Tablet 5 Mg PO PRN Q6HRS PRN Reported Albuterol Sulfate Neb Soln (Albuterol Sulfate) 1.25 Mg/3 Ml Vial.neb 1 Vial NEB Q6HRS Ranitidine Hcl 150 Mg Capsule 75 Mg PO DAILY Ondansetron Hcl 8 Mg Tablet 8 Mg PO DAILY Azithromycin Tablet (Azithromycin) 250 Mg Tablet 250 Mg PO DAILY Bupropion Hcl 100 Mg Tablet 100 Mg PO BID Nasal Allergy [place] (Cromolyn Sodium) 13 Ml [place].pump 13 Ml NS DAILY Gabapentin 300 Mg Capsule 300 Mg PO BID Hydroxyzine Hcl 25 Mg Tablet 25 Mg PO DAILY Nystatin 15 Gm Cream..g. 15 Gm TP BID Duloxetine Hcl 60 Mg Capsule.dr 60 Mg PO DAILY Clonidine Hcl 0.1 Mg Tablet 0.1 Mg PO DAILY Lisinopril 20 Mg Tablet 20 Mg PO DAILY Famciclovir 125 Mg Tablet 125 Mg PO DAILY Ropinirole Hcl 0.25 Mg Tablet 0.25 Mg PO DAILY Hydroxychloroquine Sulfate 200 Mg Tablet 200 Mg PO DAILY Lyrica (Pregabalin) 150 Mg Capsule 150 Mg PO DAILY Furosemide 20 Mg Tablet 20 Mg PO DAILY Alprazolam 0.25 Mg Tablet 0.25 Mg PO Oxycodone Hcl 5 Mg Tablet 5 Mg PO PRN Q4HRS PRN Ibuprofen 400 Mg Tablet 400 Mg PO PRN DAILY PRN Multivitamins (Multivitamin) 1 Each Tablet 1 Each PO DAILY Oxycodone-Acetaminophen 10-325 (Oxycodone Hcl/Acetaminophen) 1 Each Tablet 1 Each PO PRN Q4-6HRS PRN Plaquenil (Hydroxychloroquine Sulfate) 200 Mg Tablet 200 Mg PO BID Vitals/I & O Vital Sign - Last 24 Hours 12/23/16 12/23/16 12/23/16 12/23/16 11:29 11:30 11:45 12:00 Pulse 80 74 Resp 12 12 B/P (MAP) 151/80 (103) 140/69 (92) Pulse Ox 98 95 100 O2 Delivery Ventilator Ventilator Ventilator Mechanical Ventilator 12/23/16 12/23/16 12/23/16 12/23/16 12:00 12:15 12:15 12:30 Temp 98.2 98.2 Pulse 78 72 74 Resp 17 12 19 B/P (MAP) 153/86 (108) 145/73 (97) 141/81 (101) Pulse Ox 99 97 96 O2 Delivery Ventilator Ventilator Ventilator Ventilator 12/23/16 12/23/16 12/23/16 12/23/16 12:45 13:00 13:11 14:00 Pulse 67 72 Resp 11 12 B/P (MAP) 146/76 (99) 137/67 (90) Pulse Ox 95 98 93 O2 Delivery Ventilator Ventilator Ventilator Ventilator 7/3/17 7/3/17 7/3/17 7/3/17 14:30 15:00 15:35 16:00 Pulse 70 Resp 15 B/P (MAP) 147/78 (101) Pulse Ox 95 98 O2 Delivery Ventilator Ventilator Ventilator Mechanical Ventilator 12/23/16 12/23/16 12/23/16 12/23/16 16:00 16:57 17:00 18:00 Temp 98.2 98.2 Pulse 68 62 67 Resp 17 14 14 B/P (MAP) 149/84 (105) 145/75 (98) 134/71 (92) Pulse Ox 97 99 98 97 O2 Delivery Ventilator Ventilator Ventilator Ventilator 12/23/16 12/23/16 12/23/16 12/23/16 19:00 19:08 20:00 20:00 Temp 98.2 98.2 Pulse 72 66 Resp 14 13 B/P (MAP) 154/72 (99) 147/66 (93) Pulse Ox 97 98 96 O2 Delivery Ventilator Ventilator Ventilator Mechanical Ventilator 12/23/16 12/23/16 12/23/16 12/23/16 20:11 20:51 21:00 22:00 Pulse 67 64 Resp 14 13 B/P (MAP) 140/70 (93) Pulse Ox 98 96 96 98 O2 Delivery Ventilator Ventilator Ventilator O2 Flow Rate 3.0 12/23/16 12/24/16 12/24/16 12/24/16 23:20 00:00 00:03 01:00 Pulse 61 Resp 13 B/P (MAP) 143/76 (98) Pulse Ox 99 97 98 O2 Delivery Ventilator Mechanical Ventilator Ventilator Ventilator 12/24/16 12/24/16 12/24/16 12/24/16 01:00 02:00 03:00 03:00 Temp 98.0 98.0 Pulse 63 63 65 Resp 13 14 14 B/P (MAP) 141/63 (89) 103/43 (63) 123/62 (82) Pulse Ox 98 97 99 97 O2 Delivery Ventilator Ventilator Ventilator 12/24/16 12/24/16 12/24/16 12/24/16 04:00 04:00 05:00 05:00 Pulse 64 64 Resp 13 13 B/P (MAP) 131/59 (83) 109/59 (76) Pulse Ox 97 98 97 O2 Delivery Mechanical Ventilator Ventilator Ventilator 12/24/16 12/24/16 12/24/16 12/24/16 06:00 07:12 08:27 08:57 Pulse 62 Resp 14 B/P (MAP) 130/64 (86) Pulse Ox 98 97 97 97 O2 Delivery Ventilator Ventilator O2 Flow Rate 3.0 3.0 12/24/16 08:57 Pulse Ox 97 O2 Delivery Ventilator Intake and Output 12/23/16 12/23/16 12/24/16 15:00 23:00 07:00 Intake Total 78.85 ml 750 ml 1365 ml Output Total 715 ml 555 ml 230 ml Balance -636.15 ml 195 ml 1135 ml Nutrition Consultation Dietary Evaluation: Recommendations by RD: Increase Calorie Intake, PPN/TPN Comments: Pt's propofol rate has decreased Rec. increase the TF goal rate Diabetisource AC, goal rate 55 ml/hr flushes 225 cc q6h d/c the prostat Expected Outcomes/Goals: tolerate the TF's at goal rate- met meet 75% estimated nutrition needs- met Malnutrition Findings: Reduced Organ Pipe Maker Metal Strength: N/A Reduced Organ Pipe Maker Metal Strength (Non-Sev: N/A Malnutrition related to morbid: No Weight Status: Obese SILVINA MORRIS III DO Dec 24, 2016 11:12
--- NOTE | 2016-12-24 16:09 | PDOC ---
PULMONARY PROGRESS NOTES Subjective PT SITTING UP IN CHAIR NO RESP DISTRESS Vitals Vital Signs Date Time Temp Pulse Resp B/P (MAP) Pulse Ox O2 Delivery O2 Flow Rate FiO2 12/24/16 14:49 99 Ventilator 12/24/16 08:57 3.0 12/24/16 06:00 62 14 130/64 (86) 12/24/16 03:00 98.0 98.0 General: Alert, No acute distress HEENT: Other (TRACH 12/23) Lungs: Clear Cardiovascular: S1, S2 Abdomen: Soft, Non-tender Neuro Exam: Alert Extremities: Other (edema) Skin: Warm Labs Laboratory Tests Test 12/22/16 18:31 12/23/16 05:50 12/23/16 06:40 12/23/16 12:20 Glucose (Fingerstick) 103 mg/dL (70-99) 113 mg/dL (70-99) White Blood Count 2.6 x10^3/uL (4.0-11.0) Red Blood Count 2.47 x10^6/uL (3.50-5.40) Hemoglobin 7.4 g/dL (12.0-15.5) Hematocrit 22.3 % (36.0-47.0) Mean Corpuscular Volume 91 fL (79-100) Mean Corpuscular Hemoglobin 30 pg (25-35) Mean Corpuscular Hemoglobin Concent 33 g/dL (31-37) Red Cell Distribution Width 16.2 % (11.5-14.5) Platelet Count 68 x10^3/uL (140-400) Neutrophils (%) (Auto) 66 % (31-73) Lymphocytes (%) (Auto) 25 % (24-48) Monocytes (%) (Auto) 8 % (0-9) Eosinophils (%) (Auto) 1 % (0-3) Basophils (%) (Auto) 1 % (0-3) Neutrophils # (Auto) 1.7 x10^3uL (1.8-7.7) Lymphocytes # (Auto) 0.7 x10^3/uL (1.0-4.8) Monocytes # (Auto) 0.2 x10^3/uL (0.0-1.1) Eosinophils # (Auto) 0.0 x10^3/uL (0.0-0.7) Basophils # (Auto) 0.0 x10^3/uL (0.0-0.2) Sodium Level 145 mmol/L (136-145) Potassium Level 3.2 mmol/L (3.5-5.1) Chloride Level 109 mmol/L (98-107) Carbon Dioxide Level 30 mmol/L (21-32) Anion Gap 6 (6-14) Blood Urea Nitrogen 33 mg/dL (7-20) Creatinine 0.9 mg/dL (0.6-1.0) Estimated GFR (Cockcroft-Gault) 78.4 Glucose Level 97 mg/dL (70-99) Calcium Level 8.3 mg/dL (8.5-10.1) Prothrombin Time 15.1 SEC (11.7-14.0) Prothromb Time International Ratio 1.3 (0.8-1.1) Activated Partial Thromboplast Time 27 SEC (24-38) Test 12/23/16 18:08 12/24/16 00:20 12/24/16 06:25 12/24/16 06:27 Glucose (Fingerstick) 120 mg/dL (70-99) 102 mg/dL (70-99) 114 mg/dL (70-99) White Blood Count 3.0 x10^3/uL (4.0-11.0) Red Blood Count 2.59 x10^6/uL (3.50-5.40) Hemoglobin 7.8 g/dL (12.0-15.5) Hematocrit 23.5 % (36.0-47.0) Mean Corpuscular Volume 91 fL (79-100) Mean Corpuscular Hemoglobin 30 pg (25-35) Mean Corpuscular Hemoglobin Concent 33 g/dL (31-37) Red Cell Distribution Width 16.3 % (11.5-14.5) Platelet Count 69 x10^3/uL (140-400) Neutrophils (%) (Auto) 70 % (31-73) Lymphocytes (%) (Auto) 22 % (24-48) Monocytes (%) (Auto) 8 % (0-9) Eosinophils (%) (Auto) 0 % (0-3) Basophils (%) (Auto) 1 % (0-3) Neutrophils # (Auto) 2.1 x10^3uL (1.8-7.7) Lymphocytes # (Auto) 0.7 x10^3/uL (1.0-4.8) Monocytes # (Auto) 0.2 x10^3/uL (0.0-1.1) Eosinophils # (Auto) 0.0 x10^3/uL (0.0-0.7) Basophils # (Auto) 0.0 x10^3/uL (0.0-0.2) Sodium Level 146 mmol/L (136-145) Potassium Level 3.5 mmol/L (3.5-5.1) Chloride Level 110 mmol/L (98-107) Carbon Dioxide Level 31 mmol/L (21-32) Anion Gap 5 (6-14) Blood Urea Nitrogen 32 mg/dL (7-20) Creatinine 1.0 mg/dL (0.6-1.0) Estimated GFR (Cockcroft-Gault) 69.4 Glucose Level 114 mg/dL (70-99) Calcium Level 8.1 mg/dL (8.5-10.1) Laboratory Tests Test 12/23/16 18:08 12/24/16 00:20 12/24/16 06:25 12/24/16 06:27 Glucose (Fingerstick) 120 mg/dL (70-99) 102 mg/dL (70-99) 114 mg/dL (70-99) White Blood Count 3.0 x10^3/uL (4.0-11.0) Red Blood Count 2.59 x10^6/uL (3.50-5.40) Hemoglobin 7.8 g/dL (12.0-15.5) Hematocrit 23.5 % (36.0-47.0) Mean Corpuscular Volume 91 fL (79-100) Mean Corpuscular Hemoglobin 30 pg (25-35) Mean Corpuscular Hemoglobin Concent 33 g/dL (31-37) Red Cell Distribution Width 16.3 % (11.5-14.5) Platelet Count 69 x10^3/uL (140-400) Neutrophils (%) (Auto) 70 % (31-73) Lymphocytes (%) (Auto) 22 % (24-48) Monocytes (%) (Auto) 8 % (0-9) Eosinophils (%) (Auto) 0 % (0-3) Basophils (%) (Auto) 1 % (0-3) Neutrophils # (Auto) 2.1 x10^3uL (1.8-7.7) Lymphocytes # (Auto) 0.7 x10^3/uL (1.0-4.8) Monocytes # (Auto) 0.2 x10^3/uL (0.0-1.1) Eosinophils # (Auto) 0.0 x10^3/uL (0.0-0.7) Basophils # (Auto) 0.0 x10^3/uL (0.0-0.2) Sodium Level 146 mmol/L (136-145) Potassium Level 3.5 mmol/L (3.5-5.1) Chloride Level 110 mmol/L (98-107) Carbon Dioxide Level 31 mmol/L (21-32) Anion Gap 5 (6-14) Blood Urea Nitrogen 32 mg/dL (7-20) Creatinine 1.0 mg/dL (0.6-1.0) Estimated GFR (Cockcroft-Gault) 69.4 Glucose Level 114 mg/dL (70-99) Calcium Level 8.1 mg/dL (8.5-10.1) Medications Active Scripts Medications Dose Route/Sig Max Daily Dose Days Date Category Oxycodone Hcl 5 Mg Tablet 5 Mg PO PRN Q6HRS PRN 11/28/16 Rx Albuterol Sulfate Neb Soln (Albuterol Sulfate) 1.25 Mg/3 Ml Vial.neb 1 Vial NEB Q6HRS 11/25/16 Reported Ranitidine Hcl 150 Mg Capsule 75 Mg PO DAILY 11/25/16 Reported Ondansetron Hcl 8 Mg Tablet 8 Mg PO DAILY 11/25/16 Reported Azithromycin Tablet (Azithromycin) 250 Mg Tablet 250 Mg PO DAILY 11/25/16 Reported Bupropion Hcl 100 Mg Tablet 100 Mg PO BID 11/25/16 Reported Nasal Allergy [place] (Cromolyn Sodium) 13 Ml [place].pump 13 Ml NS DAILY 11/25/16 Reported Gabapentin 300 Mg Capsule 300 Mg PO BID 11/25/16 Reported Hydroxyzine Hcl 25 Mg Tablet 25 Mg PO DAILY 11/25/16 Reported Nystatin 15 Gm Cream..g. 15 Gm TP BID 11/25/16 Reported Duloxetine Hcl 60 Mg Capsule.dr 60 Mg PO DAILY 11/25/16 Reported Clonidine Hcl 0.1 Mg Tablet 0.1 Mg PO DAILY 11/25/16 Reported Lisinopril 20 Mg Tablet 20 Mg PO DAILY 11/25/16 Reported Famciclovir 125 Mg Tablet 125 Mg PO DAILY 11/25/16 Reported Ropinirole Hcl 0.25 Mg Tablet 0.25 Mg PO DAILY 11/25/16 Reported Hydroxychloroquine Sulfate 200 Mg Tablet 200 Mg PO DAILY 11/25/16 Reported Lyrica (Pregabalin) 150 Mg Capsule 150 Mg PO DAILY 11/25/16 Reported Furosemide 20 Mg Tablet 20 Mg PO DAILY 11/25/16 Reported Alprazolam 0.25 Mg Tablet 0.25 Mg PO 11/25/16 Reported Oxycodone Hcl 5 Mg Tablet 5 Mg PO PRN Q4HRS PRN 11/25/16 Reported Ibuprofen 400 Mg Tablet 400 Mg PO PRN DAILY PRN 05/11/15 Reported Multivitamins (Multivitamin) 1 Each Tablet 1 Each PO DAILY 05/11/15 Reported Oxycodone-Acetaminophen 10-325 (Oxycodone Hcl/Acetaminophen) 1 Each Tablet 1 Each PO PRN Q4-6HRS PRN 05/11/15 Reported Plaquenil (Hydroxychloroquine Sulfate) 200 Mg Tablet 200 Mg PO BID 08/19/13 Reported Impression . PT UP IN CHAIR NO RESP DISTRESS OK TO TRANSFER PT TO [facility] IN AM 1. Acute respiratory failure, multifactorial in etiology. THIRD INTUBATION 12/16 2. Abnormal chest x-ray secondary to volume overload, congestive heart failure /possible pneumonia 3. Septic shock, MRSA bacteremia 4. Hypotension, resolved. 5. Pancytopenia. 6. Systemic lupus erythematosus, immunocompromised. 7. Hyponatremia. 8. Acute kidney injury. 9. History of breast cancer. 10. Hepatitis C. 11. Gastroesophageal reflux disease. 13. ACUTE Blood loss anemia 14. POSITIVE CHARLI 12/16 Plan . S/P TRACH NUTRITION PER GI SUSPECT MOST OF CXR FINDINGS RELATED TO EDEMA, RESP STATUS DETERIORATED REINTUBATED 12/16 FOR THIRD TIME. REINTUBATED 12/10, EXTUBATED 12/13 UPPER EXT EDEMA TRANSFUSE NEEDED YASMANY HENSON MD Dec 24, 2016 16:08
[2016-12-24] MEDS: PREGABALIN 75 MG CAPSULE PO SCH ×2 (18:26→21:14)
[2016-12-24] MEDS: rOPINIRole 0.25 MG TABLET. PO SCH (21:14)
[2016-12-24] MEDS: ZOLPIDEM 5 MG TABLET. PO PRN (21:28)
[2016-12-25] VITALS (11 sets, daily range): BP systolic 93–162; BP diastolic 47–76
[2016-12-25] MEDS: INSULIN ASPART 300 UNITS/3 ML INSULN.PEN SQ SCH ×3 (05:48→12:00)
[2016-12-25] MEDS: CEFTAROLINE FOSAMIL 600 MG in IV NORMAL SALINE 250ML 250 ML IV SCH ×2 (05:48→13:12)
[2016-12-25] MEDS: IPRATRPIUM/ALBUTEROL 0.5/2.5MG 3 ML NEBU. NEB SCH ×2 (07:13→11:18)
--- NOTE | 2016-12-25 08:07 | PDOC ---
Infectious Disease Note Subjective Subjective Remains intubated, FiO2 30%. Tube feeding ROS ROS unable to do Vital Sign Vital Signs Vital Signs Date Time Temp Pulse Resp B/P (MAP) Pulse Ox O2 Delivery O2 Flow Rate FiO2 12/25/16 07:13 98 Ventilator 12/25/16 06:00 70 15 147/60 (89) 12/25/16 04:00 98.0 98.0 12/24/16 22:15 3.0 Physical Exam PHYSICAL EXAM GENERAL: NAD, Alert on vent HEENT: PERRL, OC/OP NECK: Supple, no JVD, no LN LUNGS: Clear HEART: S1S2, no gallop, no murmur ABD: Soft, NT, no organomegaly, no rebound EXT: No edema, no cyanosis ENTERTAINER & COMIC: Alert, oriented x 3, no focal neurologic deficit SKIN: No rash IV: ok Labs Lab Laboratory Tests Test 12/24/16 18:13 12/25/16 00:46 12/25/16 05:47 Glucose (Fingerstick) 87 mg/dL (70-99) 92 mg/dL (70-99) 105 mg/dL (70-99) Micro BLOOD CULTURE PRL Final Final report BLD CULT RESULT 1 Final Staphylococcus aureus Recovered from aerobic and anaerobic bottles. Methicillin resistant (MRSA) Based on resistance to oxacillin this isolate would be resistant to all currently available beta-lactam antimicrobial agents, with the exception of the newer cephalosporins with anti-MRSA activity, such as Ceftaroline ANTIMICROBIAL SUSCEPTIBILITY Final Comment S = Susceptible; I = Intermediate; R = Resistant P = Positive; N = Negative MICS are expressed in micrograms per mL Antibiotic RSLT#1 RSLT#2 RSLT#3 RSLT#4 Ciprofloxacin S Gentamicin S Levofloxacin S Linezolid S Nitrofurantoin S Oxacillin R Penicillin R Rifampin S Tetracycline S Trimethoprim/Sulfa S Vancomycin S Performed at: [facility] [address], [place], [place] [id number] Regulator Assembler: Evelyn Reyes MD, Phone: [phone] Objective Assessment Sepsis. POA Hypotension, now off pressor Pancytopenia PCN allergy, reaction unknown Acute encephalopathy LEONARDO Acute respiratory failure h/o breast cancer, s/p chemo. Port still in place Lupus on Plaquenil Recent E. coli UTI MRSA nares, 11/25, 12/06 and sputum Diarrhea. C. diff. neg 12/06 BC + MRSA Plan Plan of Care Given thrombocytopenia (avoid Zyvox and has bacteremia)/Acute resp failure ( Avoid Dapto no lung coverage) ? ant chest rash and ? Vanc kinetics - will cont Teflaro to cover lung and blood. Monitor WBC, Cr Supportive care picc repeat bc neg AMANDA Wesley MD Dec 25, 2016 08:07
[2016-12-25] MEDS: buPROPion 100 MG TABLET PO SCH (08:39)
[2016-12-25] MEDS: CHLORHEXIDINE 0.12% 15 ML MOUTHWASH. MM SCH (08:40)
[2016-12-25] MEDS: FAMOTIDINE 20 MG/2 ML VIAL IVP SCH (08:40)
[2016-12-25] MEDS: FUROSEMIDE 20 MG/2 ML VIAL. IVP SCH (08:41)
[2016-12-25] MEDS: NYSTATIN TOPICAL POWDER 15GM BOTTLE. TP SCH (08:41)
[2016-12-25] MEDS: ALPRAZolam 0.25 MG TABLET PO SCH (08:41)
[2016-12-25] MEDS: PREGABALIN 75 MG CAPSULE PO SCH (08:41)
--- NOTE | 2016-12-25 10:54 | PDOC ---
Subjective: Subjective: No GI complaints. Objective: Objective: Per RN - probable transfer to [facility] today. No issues w/ Dobhoff. Vital Signs: Vital Signs Date Time Temp Pulse Resp B/P (MAP) Pulse Ox O2 Delivery O2 Flow Rate FiO2 12/25/16 09:08 94 Ventilator 12/25/16 09:00 74 14 162/76 (104) 12/25/16 07:00 98.0 98.0 12/24/16 22:15 3.0 Labs: Laboratory Tests Test 12/24/16 18:13 12/25/16 00:46 12/25/16 05:47 Glucose (Fingerstick) 87 mg/dL 92 mg/dL 105 mg/dL PE: GEN: NAD LUNGS: trach HEART: RRR ABD: BS+, some distention w/ ascites NEURO/PSYCH: A & O 3 A/P: Resp failure requiring repeated intubations -s/p trach 12/23 -high risk for PEG w/ liver disease/ascites Pancytopenia -colonoscopy 2013 -on IV H2 jeaneth BID Hep C -untreated, CT w/o varices, did note ascites and splenomegaly -- No plans for PEG at this time, agree w/ transfer to [facility]. Continue Dobhoff for nutrition. ANSELMO JIN Dec 25, 2016 10:54
--- NOTE | 2016-12-25 11:01 | PDOC ---
PROGRESS NOTES Chief Complaint Chief Complaint 1 AMS 2 Sepsis 3 MRSA bacteremia 4 Septic shock 5 Metabolic encephalopathy 6 Acute respiratory failure 7 Anemia 8 LEONARDO on CKD2-3 9 Hyponatremia 10 Hypokalemia 11 HCV cirrhosis 12 DM 13 SLE 14 Knee pain 15 Petechial rash 16 Hypoalbuminemia 17 Malnutrition 18 Urinary tract infection, E.coli, pansensitive 19 Hx breast CA History of Present Illness History of Present Illness Patient seen in the ICU. The patient has had a tracheotomy in place and is nonverbal. Patient is continuing to communicating with arm movements, writing and gestures. Trach vent settings spont/500ml/30% Vitals Vitals Vital Signs Date Time Temp Pulse Resp B/P (MAP) Pulse Ox O2 Delivery O2 Flow Rate FiO2 12/25/16 09:08 94 Ventilator 12/25/16 09:00 74 14 162/76 (104) 12/25/16 07:00 98.0 98.0 12/24/16 22:15 3.0 Physical Exam General: Alert, Cooperative Heart: Regular rate, Other (3 out of 6 systolic murmur) Lungs: Clear Abdomen: Normal bowel sounds, Soft, No tenderness Extremities: No clubbing, Other (2+ edema) Skin: Other (few small echymoses over UE) Labs LABS Laboratory Tests Test 12/24/16 18:13 12/25/16 00:46 12/25/16 05:47 Glucose (Fingerstick) 87 mg/dL (70-99) 92 mg/dL (70-99) 105 mg/dL (70-99) Review of Systems Review of Systems Patient denies n/v or BAKER. Denies acute pain. 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 Trach was performed two days ago and will continue to monitor for complications 2. Dobhoff in place 3. cont Teflaro per ID for blood and pulm coverage 4. DM well controlled, glucose 105 today 5. continue PO/TD meds for knee pain 6. continue nystatin powder for petechial rash in intertrichial folds 7. Appreciate subspecialty input 8. Discussed plan with nursing staff 9. Vent settings: spont/500ml/30% 10. Likely transfer to [facility] on abx Problems: Comment Review of Relevant I have reviewed the following items anselmo (where applicable) has been applied. Labs Laboratory Tests Test 12/23/16 12:20 12/23/16 18:08 12/24/16 00:20 12/24/16 06:25 Glucose (Fingerstick) 113 mg/dL (70-99) 120 mg/dL (70-99) 102 mg/dL (70-99) White Blood Count 3.0 x10^3/uL (4.0-11.0) Red Blood Count 2.59 x10^6/uL (3.50-5.40) Hemoglobin 7.8 g/dL (12.0-15.5) Hematocrit 23.5 % (36.0-47.0) Mean Corpuscular Volume 91 fL (79-100) Mean Corpuscular Hemoglobin 30 pg (25-35) Mean Corpuscular Hemoglobin Concent 33 g/dL (31-37) Red Cell Distribution Width 16.3 % (11.5-14.5) Platelet Count 69 x10^3/uL (140-400) Neutrophils (%) (Auto) 70 % (31-73) Lymphocytes (%) (Auto) 22 % (24-48) Monocytes (%) (Auto) 8 % (0-9) Eosinophils (%) (Auto) 0 % (0-3) Basophils (%) (Auto) 1 % (0-3) Neutrophils # (Auto) 2.1 x10^3uL (1.8-7.7) Lymphocytes # (Auto) 0.7 x10^3/uL (1.0-4.8) Monocytes # (Auto) 0.2 x10^3/uL (0.0-1.1) Eosinophils # (Auto) 0.0 x10^3/uL (0.0-0.7) Basophils # (Auto) 0.0 x10^3/uL (0.0-0.2) Sodium Level 146 mmol/L (136-145) Potassium Level 3.5 mmol/L (3.5-5.1) Chloride Level 110 mmol/L (98-107) Carbon Dioxide Level 31 mmol/L (21-32) Anion Gap 5 (6-14) Blood Urea Nitrogen 32 mg/dL (7-20) Creatinine 1.0 mg/dL (0.6-1.0) Estimated GFR (Cockcroft-Gault) 69.4 Glucose Level 114 mg/dL (70-99) Calcium Level 8.1 mg/dL (8.5-10.1) Test 12/24/16 06:27 12/24/16 18:13 12/25/16 00:46 12/25/16 05:47 Glucose (Fingerstick) 114 mg/dL (70-99) 87 mg/dL (70-99) 92 mg/dL (70-99) 105 mg/dL (70-99) Laboratory Tests Test 12/24/16 18:13 12/25/16 00:46 12/25/16 05:47 Glucose (Fingerstick) 87 mg/dL (70-99) 92 mg/dL (70-99) 105 mg/dL (70-99) Microbiology 12/14/16 Blood Culture - Final, Complete NO GROWTH AFTER 5 DAYS 12/09/16 Stool Culture - Final, Complete 12/09/16 Stool Culture Result 1 (LUCINA) - Final, Complete 12/09/16 Campylobacter Antigen Assay - Final, Complete 12/09/16 Campylobactor Result 1 - Final, Complete 12/09/16 Shiga Toxin Test - Final, Complete 12/17/16 Gram Stain - Final, Complete 12/06/16 Urine Culture - Final, Complete 12/06/16 Urine Culture Result 1 (LUCINA) - Final, Complete 12/17/16 Gram Stain - Final, Complete Medications Current Medications Sodium Chloride 1,000 ml @ 1,000 mls/hr 1X ONCE IV Last administered on 16:18; Start 12/06/16 at 16:15; Stop 12/06/16 at 17:14; Status DC Vancomycin HCl (Vanco Per Pharmacy) 1 each PRN DAILY PRN MC SEE COMMENTS Last administered on 12/15/16 15:18; Start 12/06/16 at 17:00; Stop 12/16/16 at 09:58 ; Status DC Levofloxacin/ Dextrose 150 ml @ 100 mls/hr 1X ONCE IV Last administered on 20:04; Start 12/06/16 at 17:00; Stop 12/06/16 at 18:29; Status DC Vancomycin HCl 2 gm/Sodium Chloride 500 ml @ 250 mls/hr 1X ONCE IV Last administered on 12/06/16 17:11; Start 12/06/16 at 17:00; Stop 12/06/16 at 18:59 ; Status DC Sodium Chloride 1,000 ml @ 1,000 mls/hr 1X ONCE IV Last administered on 17:09; Start 12/06/16 at 17:00; Stop 12/06/16 at 17:59; Status DC Meropenem 500 mg/ Sodium Chloride 50 ml @ 100 mls/hr Q8HRS IV Last administered on 12/10/16 07:30; Start 12/06/16 at 18:00; Stop 12/10/16 at 08:13 ; Status DC Dopamine HCl/ Dextrose 250 ml @ 16.414 mls/ hr 1X ONCE IV Last administered on 12/06/16 17:41; Start 12/06/16 at 17:15; Stop 12/07/16 at 08:28; Status DC Etomidate (Amidate) 20 mg 1X ONCE IV Last administered on 12/06/16 17:19; Start 12/06/16 at 17:15; Stop 12/06/16 at 17:17; Status DC Succinylcholine Chloride (Anectine) 100 mg 1X ONCE IV Last administered on 17:20; Start 12/06/16 at 17:15; Stop 12/06/16 at 17:17; Status DC Vancomycin HCl 1.25 gm/Sodium Chloride 250 ml @ 167 mls/hr Q24H IV Last administered on 12/07/16 18:39; Start 12/07/16 at 17:00; Stop 12/07/16 at 23:00 ; Status DC Vancomycin HCl 1 each 1X ONCE MC ; Start 12/07/16 at 16:30; Stop 12/07/16 at 16 :31; Status Cancel Midazolam HCl 100 ml @ As Directed STK-MED ONCE IV ; Start 12/06/16 at 17:36; Stop 12/06/16 at 17:37; Status DC Midazolam HCl (Versed) 5 mg STK-MED ONCE .ROUTE ; Start 12/06/16 at 17:37; Stop 12/06/16 at 17:38; Status DC Midazolam HCl (Versed) 5 mg PRN Q10MIN PRN IV SEDATION; Start 12/06/16 at 17:45 ; Stop 12/21/16 at 11:15; Status DC Hydrocortisone Sodium Succinate (Solu-CORTEF) 100 mg Q8HRS IV Last administered on 12/09/16 13:55; Start 12/06/16 at 18:30; Stop 12/09/16 at 16:21 ; Status DC Norepinephrine Bitartrate 16 mg/ Sodium Chloride 266 ml @ 0 mls/hr CONT PRN IV SEE I/O RECORD; Start 12/06/16 at 19:00; Status UNV Pantoprazole Sodium (Protonix Vial) 40 mg DAILYAC IVP Last administered on 12/15 08:40; Start 12/06/16 at 19:30; Stop 12/15/16 at 10:35; Status DC Acetaminophen (Tylenol) 325 mg PRN Q6HRS PRN PO MILD PAIN / TEMP; Start at 19:00; Stop 12/21/16 at 11:15; Status DC Hydralazine HCl (Apresoline) 10 mg PRN Q4HRS PRN IVP ELEVATED BP, SEE COMMENTS Last administered on 12/17/16 12:26; Start 12/06/16 at 19:00 Ondansetron HCl (Zofran) 4 mg PRN Q8HRS PRN IV NAUSEA/VOMITING; Start 12/06/16 at 19:00; Stop 12/12/16 at 08:31; Status DC Albuterol Sulfate (Ventolin Neb Soln) 2.5 mg PRN Q4HRS PRN NEB SHORTNESS OF BREATH Last administered on 12/16/16 00:43; Start 12/06/16 at 19:00 Norepinephrine Bitartrate 250 ml @ 1.875 mls/ hr CONT PRN IV SEE I/O RECORD Last administered on 12/06/16 19:55; Start 12/06/16 at 19:00; Stop 12/15/16 at 10:33; Status DC Sodium Chloride 1,000 ml @ 1,000 mls/hr 1X ONCE IV Last administered on 19:56; Start 12/06/16 at 19:15; Stop 12/06/16 at 20:14; Status DC Sodium Chloride 1,000 ml @ 75 mls/hr [id number] IV Last administered on 21:55; Start 12/06/16 at 19:15; Stop 12/09/16 at 18:44; Status DC Pneumococcal Polyvalent Vaccine (Do NOT chart on this placeholder) 1 each PRN DAILY PRN MC PT UNABLE TO RESPOND; Start 12/07/16 at 09:30; Status Cancel Pneumococcal Polyvalent Vaccine (Pneumovax 23) 0.5 ml ONCE ONCE VAX IM ; Start 12/08/16 at 09:00; Stop 12/08/16 at 09:01; Status DC Albuterol/ Ipratropium (Duoneb) 3 ml RTQID NEB Last administered on 12/25/16 07 :13; Start 12/07/16 at 12:00 Midazolam HCl 100 ml @ 0 mls/hr CONT PRN IV SEE I/O RECORD Last administered on 12/07/16 10:29; Start 12/07/16 at 10:15; Stop 12/13/16 at 20:41; Status DC Fentanyl Citrate (Fentanyl 2ml Vial) 25 mcg PRN Q1HR PRN IV PAIN Last administered on 12/24/16 16:55; Start 12/07/16 at 10:45 Pantoprazole Sodium (Protonix Vial) 40 mg DAILYAC IVP ; Start 12/07/16 at 17:00 ; Status Cancel Vancomycin HCl 1.25 gm/Sodium Chloride 250 ml @ 167 mls/hr Q12H IV Last administered on 12/13/16 18:25; Start 12/08/16 at 06:00; Stop 12/13/16 at 18:54 ; Status DC Vancomycin HCl 1 each 1X ONCE MC ; Start 12/08/16 at 17:30; Stop 12/08/16 at 17 :31; Status DC Vancomycin HCl 1 gm/Sodium Chloride 250 ml @ 250 mls/hr Q12H IV ; Start at 18:00; Status Cancel Chlorhexidine Gluconate (Peridex) 15 ml BID SWSP ; Start 12/09/16 at 21:00; Stop 12/10/16 at 07:23; Status DC Hydrocortisone Sodium Succinate (Solu-CORTEF) 100 mg Q12HR IV Last administered on 12/14/16 08:53; Start 12/09/16 at 21:00; Stop 12/14/16 at 16:52 ; Status DC Amino Acids/ Glycerin/ Electrolytes 1,000 ml @ 40 mls/hr Q24H IV Last administered on 12/09/16 17:56; Start 12/09/16 at 17:00; Stop 12/10/16 at 14:16 ; Status DC Alprazolam (Xanax) 0.25 mg DAILY PO Last administered on 12/25/16 08:41; Start 12/10/16 at 09:00 Bupropion HCl (Wellbutrin) 100 mg BID PO Last administered on 12/25/16 08:39; Start 12/09/16 at 21:00 Gabapentin (Neurontin) 300 mg BID PO ; Start 12/09/16 at 21:00; Status Cancel Ropinirole HCl (Requip) 0.25 mg QHS PO Last administered on 12/24/16 21:14; Start 12/09/16 at 21:00 Pregabalin (Lyrica) 150 mg DAILY PO Last administered on 12/19/16 08:16; Start 12/10/16 at 09:00; Stop 12/19/16 at 18:41; Status DC Epinephrine (S2 Racepinephrine) 0.5 ml 1X ONCE NEB Last administered on 07:45; Start 12/10/16 at 07:45; Stop 12/10/16 at 07:46; Status DC Lorazepam (Ativan) 2 mg 1X ONCE IV Last administered on 12/10/16 08:33; Start 12/10/16 at 08:00; Stop 12/10/16 at 08:01; Status DC Succinylcholine Chloride (Anectine) 200 mg STK-MED ONCE .ROUTE ; Start 12/10/16 at 10:28; Stop 12/10/16 at 10:29; Status DC Propofol 100 ml @ As Directed STK-MED ONCE IV ; Start 12/10/16 at 10:28; Stop 12/10/16 at 10:29; Status DC Calcium Gluconate (Calcium Gluconate) 1,000 mg 1X ONCE IVP Last administered on 12/10/16 11:41; Start 12/10/16 at 11:30; Stop 12/10/16 at 11:31; Status DC Succinylcholine Chloride (Anectine) 200 mg 1X ONCE IV Last administered on 11:41; Start 12/10/16 at 11:30; Stop 12/10/16 at 11:31; Status DC Propofol 100 ml @ 0 mls/hr CONT PRN IV SEE I/O RECORD Last administered on 12/13 00:57; Start 12/10/16 at 11:30; Stop 12/13/16 at 20:41; Status DC Insulin Aspart (NovoLOG) 0-5 UNITS TIDWMEALS SQ ; Start 12/11/16 at 08:00; Stop 12/11/16 at 08:00; Status DC Dextrose (Dextrose 50%-Water Syringe) 12.5 gm PRN Q15MIN PRN IV SEE COMMENTS; Start 12/10/16 at 20:30 Insulin Aspart (NovoLOG) 0-5 UNITS Q6HRS SQ Last administered on 12/19/16 11: 57; Start 12/11/16 at 00:00 Chlorhexidine Gluconate (Peridex) 15 ml BID MM Last administered on 12/13/16 09:46; Start 12/11/16 at 21:00; Stop 12/13/16 at 20:41; Status DC Fentanyl Citrate (Fentanyl 2ml Vial) 25 mcg PRN Q5MIN PRN IV MILD PAIN; Start 12/12/16 at 07:00; Stop 12/13/16 at 06:59; Status DC Fentanyl Citrate (Fentanyl 2ml Vial) 50 mcg PRN Q5MIN PRN IV MODERATE PAIN; Start 12/12/16 at 07:00; Stop 12/13/16 at 06:59; Status DC Morphine Sulfate 1 mg PRN Q10MIN PRN IV SEVERE PAIN; Start 12/12/16 at 07:00; Stop 12/13/16 at 06:59; Status DC Ringer's Solution 1,000 ml @ 30 mls/hr Q24H IV ; Start 12/12/16 at 07:00; Stop 12/12/16 at 18:59; Status DC Lidocaine HCl 2 ml PRN 1X PRN ID PRIOR TO IV START; Start 12/12/16 at 07:00; Stop 12/13/16 at 06:59; Status DC Hydromorphone HCl (Dilaudid) 0.5 mg PRN Q10MIN PRN IV SEV PAIN, Second choice; Start 12/12/16 at 07:00; Stop 12/13/16 at 06:59; Status DC Prochlorperazine Edisylate (Compazine) 5 mg PACU PRN PRN IV NAUSEA, MRX1; Start 12/12/16 at 07:00; Stop 12/13/16 at 06:59; Status DC Lidocaine HCl (Lidocaine Pf 2% Vial) 5 ml STK-MED ONCE .ROUTE ; Start 12/12/16 at 08:15; Stop 12/12/16 at 08:16; Status DC Propofol 0 ml @ As Directed STK-MED ONCE IV ; Start 12/12/16 at 08:15; Stop at 08:16; Status DC Ondansetron HCl (Zofran) 4 mg PRN Q6HRS PRN IV NAUSEA/VOMITING Last administered on 12/14/16 01:41; Start 12/12/16 at 19:00 Acetaminophen (Tylenol) 650 mg PRN Q6HRS PRN PEG MILD PAIN / TEMP Last administered on 12/15/16 17:25; Start 12/12/16 at 08:30 Vancomycin HCl 1 each 1X ONCE MC Last administered on 12/13/16 10:00; Start 12/13/16 at 10:00; Stop 12/13/16 at 10:01; Status DC Furosemide (Lasix) 40 mg 1X ONCE IVP Last administered on 12/13/16 11:31; Start 12/13/16 at 11:15; Stop 12/13/16 at 11:16; Status DC Amino Acids/ Glycerin/ Electrolytes 1,000 ml @ 75 mls/hr [id number] IV Last administered on 12/15/16 04:25; Start 12/13/16 at 21:00; Stop 12/15/16 at 10:33 ; Status DC Vancomycin HCl 1 each 1X ONCE MC Last administered on 12/14/16 09:00; Start 12/14/16 at 09:00; Stop 12/14/16 at 09:01; Status DC Vancomycin HCl 1 each 1X ONCE MC ; Start 12/15/16 at 06:00; Stop 12/15/16 at 06 :01; Status Cancel Vancomycin HCl 1 each 1X ONCE MC Last administered on 12/15/16 06:00; Start 12/15/16 at 06:00; Stop 12/15/16 at 06:01; Status DC Alteplase, Recombinant (Cathflo) 2 mg 1X ONCE INT CAT Last administered on 14:58; Start 12/14/16 at 14:30; Stop 12/14/16 at 14:34; Status DC Hydrocortisone Sodium Succinate (Solu-CORTEF) 100 mg DAILY IV Last administered on 12/19/16 08:17; Start 12/15/16 at 09:00; Stop 12/19/16 at 10:04 ; Status DC Haloperidol Lactate (Haldol) 2.5 mg PRN Q4HRS PRN IVP AGITATION Last administered on 12/15/16 20:35; Start 12/15/16 at 06:45 Lansoprazole (Prevacid) 30 mg DAILYAC FT ; Start 12/16/16 at 07:30; Stop at 10:00; Status DC Vancomycin HCl 1 gm/Sodium Chloride 250 ml @ 250 mls/hr Q48H IV ; Start at 21:00; Status Cancel Morphine Sulfate 2 mg PRN Q2HR PRN IV SEVERE PAIN Last administered on 09:51; Start 12/15/16 at 21:15; Stop 12/21/16 at 11:15; Status DC Zolpidem Tartrate (Ambien) 5 mg PRN QHS PRN PO INSOMNIA Last administered on 21:28; Start 12/16/16 at 00:00 Propofol 100 ml @ As Directed STK-MED ONCE IV ; Start 12/16/16 at 02:34; Stop 12/16/16 at 02:35; Status DC Succinylcholine Chloride (Anectine) 200 mg STK-MED ONCE .ROUTE ; Start 12/16/16 at 02:57; Stop 12/16/16 at 02:58; Status DC Succinylcholine Chloride (Anectine) 200 mg STK-MED ONCE .ROUTE ; Start 12/16/16 at 02:57; Stop 12/16/16 at 02:58; Status DC Etomidate (Amidate) 20 mg STK-MED ONCE IV ; Start 12/16/16 at 02:58; Stop at 02:59; Status DC Propofol 100 ml @ 0 mls/hr CONT PRN IV SEE I/O RECORD; Start 12/16/16 at 04:15 ; Stop 12/16/16 at 08:04; Status DC Chlorhexidine Gluconate (Peridex) 15 ml BID MM Last administered on 12/25/16 08 :40; Start 12/16/16 at 09:00 Propofol (Diprivan) 1,000 mg STK-MED ONCE IV ; Start 12/16/16 at 03:00; Stop at 07:11; Status DC Furosemide (Lasix) 40 mg DAILY IVP Last administered on 12/21/16 09:03; Start 12/16/16 at 09:00; Stop 12/21/16 at 11:02; Status DC Ceftaroline Fosamil 600 mg/ Sodium Chloride 250 ml @ 250 mls/hr Q8HRS IV Last administered on 12/25/16 05:48; Start 12/16/16 at 10:00 Famotidine (Pepcid) 20 mg BID IVP Last administered on 12/25/16 08:40; Start at 10:30 Propofol 100 ml @ 0 mls/hr CONT PRN IV PER PROTOCOL Last administered on 04:47; Start 12/16/16 at 06:45 Fentanyl Citrate (Fentanyl 2ml Vial) 25 mcg PRN Q5MIN PRN IV MILD PAIN; Start 12/16/16 at 12:45; Stop 12/17/16 at 12:44; Status DC Fentanyl Citrate (Fentanyl 2ml Vial) 50 mcg PRN Q5MIN PRN IV MODERATE PAIN; Start 12/16/16 at 12:45; Stop 12/17/16 at 12:44; Status DC Morphine Sulfate 1 mg PRN Q10MIN PRN IV SEVERE PAIN; Start 12/16/16 at 12:45; Stop 12/17/16 at 12:44; Status DC Ringer's Solution 1,000 ml @ 30 mls/hr Q24H IV ; Start 12/16/16 at 12:32; Stop 12/17/16 at 00:31; Status DC Lidocaine HCl 2 ml PRN 1X PRN ID PRIOR TO IV START; Start 12/16/16 at 12:45; Stop 12/17/16 at 12:44; Status DC Hydromorphone HCl (Dilaudid) 0.5 mg PRN Q10MIN PRN IV SEV PAIN, Second choice; Start 12/16/16 at 12:45; Stop 12/17/16 at 12:44; Status DC Prochlorperazine Edisylate (Compazine) 5 mg PACU PRN PRN IV NAUSEA, MRX1; Start 12/16/16 at 12:45; Stop 12/17/16 at 12:44; Status DC Dextrose/Sodium Chloride 1,000 ml @ 50 mls/hr Q20H IV ; Start 12/16/16 at 13:00 ; Stop 12/16/16 at 13:38; Status DC Potassium Chloride (KCl Oral Soln) 20 meq 1X ONCE PEG Last administered on 11:28; Start 12/17/16 at 11:00; Stop 12/17/16 at 11:01; Status DC Lidocaine/Sodium Bicarbonate (Buffered Lidocaine 1%) 20 ml STK-MED ONCE IJ ; Start 12/17/16 at 14:48; Stop 12/17/16 at 14:49; Status DC Heparin Sodium/ Sodium Chloride 500 ml @ As Directed STK-MED ONCE .ROUTE ; Start 12/17/16 at 14:48; Stop 12/17/16 at 14:49; Status DC Lidocaine/Sodium Bicarbonate (Buffered Lidocaine 1%) 3 ml 1X ONCE IJ Last administered on 12/17/16 16:01; Start 12/17/16 at 15:15; Stop 12/17/16 at 15:16 ; Status DC Heparin Sodium/ Sodium Chloride 60 unit 1X ONCE IV Last administered on 16:02; Start 12/17/16 at 15:15; Stop 12/17/16 at 15:16; Status DC Lidocaine/ Epinephrine (Xylocaine 1%-Epi 1:100,000) 10 ml 1X ONCE INJ Last administered on 12/17/16 16:01; Start 12/17/16 at 15:15; Stop 12/17/16 at 15:16 ; Status DC Gelatin (Gelfoam Size 12-7mm) 1 each STK-MED ONCE .ROUTE ; Start 12/17/16 at 15 :01; Stop 12/17/16 at 15:02; Status DC Iohexol (Omnipaque 300 Mg/ml) 75 ml 1X ONCE IV ; Start 12/18/16 at 14:00; Stop 12/18/16 at 14:01; Status DC Info (Do NOT chart on this entry -- for MONITORING) 1 each PRN DAILY PRN MC SEE COMMENTS; Start 12/18/16 at 14:00; Stop 12/20/16 at 13:59; Status DC Potassium Chloride (Klor-Con) 40 meq Q2H PO Last administered on 12/19/16 14: 51; Start 12/19/16 at 10:00; Stop 12/19/16 at 12:01; Status DC Hydrocortisone Sodium Succinate (Solu-CORTEF) 50 mg DAILY IV Last administered on 12/24/16 08:27; Start 12/20/16 at 09:00 Potassium Chloride 20 meq/ Sodium Chloride 510 ml @ 500 mls/hr 1X ONCE IV Last administered on 12/19/16 11:42; Start 12/19/16 at 11:00; Stop 12/19/16 at 12:01; Status DC Nystatin (Nystop) 1 jimenez BID TP Last administered on 12/25/16 08:41; Start 12/19 at 21:00 Pregabalin (Lyrica) 75 mg [id number] PO Last administered on 12/25/16 08:41; Start 12/19/16 at 21:00 Sodium Chloride 1,000 ml @ 100 mls/hr 1X ONCE IV Last administered on 00:28; Start 12/20/16 at 00:15; Stop 12/20/16 at 10:14; Status DC Fentanyl Citrate (Fentanyl 2ml Vial) 50 mcg PRN Q5MIN PRN IV Acute Pain; Start 12/23/16 at 06:00; Stop 12/23/16 at 06:00; Status DC Morphine Sulfate 4 mg PRN Q10MIN PRN IV Moderate Pain; Start 12/23/16 at 06:00; Stop 12/23/16 at 06:00; Status DC Hydromorphone HCl (Dilaudid) 0.4 mg PRN Q10MIN PRN IV Moderate to severe pain; Start 12/23/16 at 06:00; Stop 12/23/16 at 06:00; Status DC Meperidine HCl (Demerol) 12.5 mg PRN Q5MIN PRN IV SHIVERING; Start 12/23/16 at 06:00; Stop 12/23/16 at 06:00; Status DC Prochlorperazine Edisylate (Compazine) 5 mg PRN Q6HRS PRN IV Nausea/Vomiting, 1st Choice; Start 12/23/16 at 06:00; Stop 12/23/16 at 15:00; Status DC Diphenhydramine HCl (Benadryl) 12.5 mg PRN Q2HR PRN IV ITCHING; Start 12/23/16 at 06:00; Stop 12/23/16 at 15:00; Status DC Furosemide (Lasix) 20 mg DAILY IVP Last administered on 12/25/16 08:41; Start 12/22/16 at 09:00 Acetaminophen/ Hydrocodone Bitart (Lortab 7.5-325/ 15ml Oral Solution) 10 ml PRN Q6HRS PRN PO PAIN Last administered on 12/24/16 21:15; Start 12/21/16 at 11: 15 Multi-Ingredient Ointment (Analgesic [place]) 1 jimenez PRN QID PRN TP MUSCLE PAIN Last administered on 12/24/16 06:45; Start 12/21/16 at 11:15 Potassium Chloride 50 ml @ 25 mls/hr Q2H IV Last administered on 12/21/16 16:06 ; Start 12/21/16 at 12:00; Stop 12/21/16 at 15:59; Status DC Potassium Chloride (KCl Oral Soln) 40 meq 1X ONCE PO Last administered on 08:20; Start 12/22/16 at 07:45; Stop 12/22/16 at 07:47; Status DC Fentanyl Citrate (Fentanyl 2ml Vial) 25 mcg PRN Q5MIN PRN IV MILD PAIN; Start 12/23/16 at 06:45; Stop 12/24/16 at 06:44; Status DC Fentanyl Citrate (Fentanyl 2ml Vial) 50 mcg PRN Q5MIN PRN IV MODERATE PAIN; Start 12/23/16 at 06:45; Stop 12/24/16 at 06:44; Status DC Morphine Sulfate 1 mg PRN Q10MIN PRN IV SEVERE PAIN; Start 12/23/16 at 06:45; Stop 12/24/16 at 06:44; Status DC Ringer's Solution 1,000 ml @ 30 mls/hr Q24H IV ; Start 12/23/16 at 06:41; Stop 12/23/16 at 18:40; Status DC Lidocaine HCl 2 ml PRN 1X PRN ID PRIOR TO IV START; Start 12/23/16 at 06:45; Stop 12/24/16 at 06:44; Status DC Hydromorphone HCl (Dilaudid) 0.5 mg PRN Q10MIN PRN IV SEV PAIN, Second choice; Start 12/23/16 at 06:45; Stop 12/24/16 at 06:44; Status DC Prochlorperazine Edisylate (Compazine) 5 mg PACU PRN PRN IV NAUSEA, MRX1; Start 12/23/16 at 06:45; Stop 12/24/16 at 06:44; Status DC Rocuronium Leslie (Zemuron) 50 mg STK-MED ONCE .ROUTE ; Start 12/23/16 at 09:51 ; Stop 12/23/16 at 09:52; Status DC Bupivacaine HCl/ Epinephrine Bitart (Marcaine-Epi 0.5%-[id number]) 50 ml STK-MED ONCE .ROUTE ; Start 12/23/16 at 09:53; Stop 12/23/16 at 09:54; Status DC Propofol 20 ml @ As Directed STK-MED ONCE IV ; Start 12/23/16 at 09:55; Stop 12/23 at 09:56; Status DC Cellulose 1 each STK-MED ONCE .ROUTE ; Start 12/23/16 at 09:56; Stop 12/23/16 at 09:57; Status DC Dexamethasone Sodium Phosphate (Decadron) 20 mg STK-MED ONCE .ROUTE ; Start 12/23 at 09:57; Stop 12/23/16 at 09:58; Status DC Ondansetron HCl (Zofran) 4 mg STK-MED ONCE .ROUTE ; Start 12/23/16 at 09:57; Stop 12/23/16 at 09:58; Status DC Ephedrine Sulfate 50 mg STK-MED ONCE IV ; Start 12/23/16 at 10:45; Stop 12/23/16 at 10:46; Status DC Fentanyl Citrate (Fentanyl 2ml Vial) 100 mcg STK-MED ONCE .ROUTE ; Start at 10:49; Stop 12/23/16 at 10:50; Status DC Glycopyrrolate (Robinul) 1 mg STK-MED ONCE .ROUTE ; Start 12/23/16 at 11:10; Stop 12/23/16 at 11:11; Status DC Neostigmine Methylsulfate 5 mg STK-MED ONCE .ROUTE ; Start 12/23/16 at 11:10; Stop 12/23/16 at 11:11; Status DC Sevoflurane (Ultane) 30 ml STK-MED ONCE IH ; Start 12/23/16 at 11:12; Stop at 11:13; Status DC Potassium Chloride 50 ml @ 50 mls/hr Q1H IV Last administered on 12/23/16t 14:24 ; Start 12/23/16 at 12:45; Stop 12/23/16 at 14:44; Status DC Amino Acids/ Glycerin/ Electrolytes 1,000 ml @ 75 mls/hr [id number] IV ; Start 12/23/16 at 13:30; Stop 12/23/16 at 17:37; Status DC Lorazepam (Ativan) 0.5 mg PRN Q6HRS PRN IV ANXIETY / AGITATION; Start 12/23/16 at 17:45 Active Scripts Active Ambien (Zolpidem Tartrate) 5 Mg Tablet 5 Mg PO PRN QHS PRN Hydrocodone-Apap 7.5-325/15 Soln (Hydrocodone Bit/Acetaminophen) 15 Ml Solution 15 Ml PO PRN Q6HRS PRN Morphine Sulfate 2 Mg/1 Ml Cartridge 2 Mg IV PRN Q2HR PRN Oxycodone Hcl 5 Mg Tablet 5 Mg PO PRN Q6HRS PRN Reported Albuterol Sulfate Neb Soln (Albuterol Sulfate) 1.25 Mg/3 Ml Vial.neb 1 Vial NEB Q6HRS Ranitidine Hcl 150 Mg Capsule 75 Mg PO DAILY Ondansetron Hcl 8 Mg Tablet 8 Mg PO DAILY Azithromycin Tablet (Azithromycin) 250 Mg Tablet 250 Mg PO DAILY Bupropion Hcl 100 Mg Tablet 100 Mg PO BID Nasal Allergy [place] (Cromolyn Sodium) 13 Ml [place].pump 13 Ml NS DAILY Gabapentin 300 Mg Capsule 300 Mg PO BID Hydroxyzine Hcl 25 Mg Tablet 25 Mg PO DAILY Nystatin 15 Gm Cream..g. 15 Gm TP BID Duloxetine Hcl 60 Mg Capsule.dr 60 Mg PO DAILY Clonidine Hcl 0.1 Mg Tablet 0.1 Mg PO DAILY Lisinopril 20 Mg Tablet 20 Mg PO DAILY Famciclovir 125 Mg Tablet 125 Mg PO DAILY Ropinirole Hcl 0.25 Mg Tablet 0.25 Mg PO DAILY Hydroxychloroquine Sulfate 200 Mg Tablet 200 Mg PO DAILY Lyrica (Pregabalin) 150 Mg Capsule 150 Mg PO DAILY Furosemide 20 Mg Tablet 20 Mg PO DAILY Alprazolam 0.25 Mg Tablet 0.25 Mg PO Oxycodone Hcl 5 Mg Tablet 5 Mg PO PRN Q4HRS PRN Ibuprofen 400 Mg Tablet 400 Mg PO PRN DAILY PRN Multivitamins (Multivitamin) 1 Each Tablet 1 Each PO DAILY Oxycodone-Acetaminophen 10-325 (Oxycodone Hcl/Acetaminophen) 1 Each Tablet 1 Each PO PRN Q4-6HRS PRN Plaquenil (Hydroxychloroquine Sulfate) 200 Mg Tablet 200 Mg PO BID Vitals/I & O Vital Sign - Last 24 Hours 12/24/16 12/24/16 12/24/16 12/24/16 11:00 11:02 12:00 12:00 Temp 98.0 98.0 Pulse 62 68 Resp 14 14 B/P (MAP) 138/61 (86) 141/67 (91) Pulse Ox 98 97 98 O2 Delivery Ventilator Ventilator Ventilator Mechanical Ventilator 12/24/16 12/24/16 12/24/16 12/24/16 12:27 13:00 14:00 14:49 Pulse 66 66 Resp 14 14 B/P (MAP) 155/81 (105) 141/64 (89) Pulse Ox 99 98 98 99 O2 Delivery Ventilator Ventilator Ventilator Ventilator 12/24/16 12/24/16 12/24/16 12/24/16 15:00 16:00 16:00 16:50 Temp 97.8 97.8 Pulse 66 68 Resp 14 14 B/P (MAP) 172/86 (114) 130/64 (86) Pulse Ox 98 98 99 O2 Delivery Ventilator Ventilator Mechanical Ventilator Ventilator 12/24/16 12/24/16 12/24/16 12/24/16 16:55 17:00 17:25 18:00 Pulse 64 64 Resp 14 14 B/P (MAP) 130/64 (86) 124/64 (84) Pulse Ox 99 98 98 98 O2 Delivery Ventilator Ventilator O2 Flow Rate 3.0 3.0 12/24/16 12/24/16 12/24/16 12/24/16 19:00 19:27 20:00 20:00 Temp 98.0 98.0 Pulse 63 68 Resp 16 11 B/P (MAP) 178/89 (118) 179/88 (118) Pulse Ox 98 99 98 O2 Delivery Ventilator Ventilator Ventilator Mechanical Ventilator 12/24/16 12/24/16 12/24/16 12/24/16 20:55 21:00 21:15 22:00 Pulse 71 70 Resp 11 12 12 B/P (MAP) 162/80 (107) 138/68 (91) Pulse Ox 98 98 98 98 O2 Delivery Ventilator Ventilator Ventilator O2 Flow Rate 3.0 12/24/16 12/24/16 12/24/16 12/24/16 22:15 22:55 22:57 23:00 Pulse 69 Resp 12 13 B/P (MAP) 140/66 (90) Pulse Ox 98 99 99 98 O2 Delivery Ventilator Ventilator Ventilator O2 Flow Rate 3.0 12/25/16 12/25/16 12/25/16 12/25/16 00:00 00:00 01:00 01:00 Temp 98.2 98.2 Pulse 69 67 Resp 13 10 B/P (MAP) 147/71 (96) 93/47 (62) Pulse Ox 100 98 98 O2 Delivery Ventilator Mechanical Ventilator Ventilator Ventilator 12/25/16 12/25/16 12/25/16 12/25/16 02:00 03:00 03:10 04:00 Pulse 68 74 Resp 14 15 B/P (MAP) 112/47 (68) 162/75 (104) Pulse Ox 98 98 96 O2 Delivery Ventilator Ventilator Ventilator Mechanical Ventilator 12/25/16 12/25/16 12/25/16 12/25/16 04:00 05:00 05:09 06:00 Temp 98.0 98.0 Pulse 69 74 70 Resp 14 15 15 B/P (MAP) 140/59 (86) 130/62 (84) 147/60 (89) Pulse Ox 98 98 97 100 O2 Delivery Ventilator Ventilator Ventilator Ventilator 12/25/16 12/25/16 12/25/16 12/25/16 07:00 07:13 08:00 08:00 Temp 98.0 98.0 Pulse 70 70 Resp 14 14 B/P (MAP) 153/66 (95) 147/75 (99) Pulse Ox 97 98 99 O2 Delivery Ventilator Ventilator Mechanical Ventilator Ventilator 12/25/16 12/25/16 09:00 09:08 Pulse 74 Resp 14 B/P (MAP) 162/76 (104) Pulse Ox 95 94 O2 Delivery Ventilator Ventilator Intake and Output 12/24/16 12/24/16 12/25/16 15:00 23:00 07:00 Intake Total 460 ml 455 ml 2495 ml Output Total 1980 ml 560 ml Balance 460 ml -1525 ml 1935 ml Nutrition Consultation Dietary Evaluation: Recommendations by RD: Increase Calorie Intake, PPN/TPN Comments: Pt's propofol rate has decreased Rec. increase the TF goal rate Diabetisource AC, goal rate 55 ml/hr flushes 225 cc q6h d/c the prostat Expected Outcomes/Goals: tolerate the TF's at goal rate- met meet 75% estimated nutrition needs- met Malnutrition Findings: Reduced Deli Department Manager Strength: N/A Reduced Deli Department Manager Strength (Non-Sev: N/A Malnutrition related to morbid: No Weight Status: Obese SILVINA MORRIS III DO Dec 25, 2016 11:01
[2016-12-25] MEDS: HYDROCORTISONE SOD SUCC/PF 100 MG/2 ML VIAL. IV SCH (13:10)
--- NOTE | 2016-12-25 14:01 | PDOC3 ---
Discharge Summary Visit Information Date of Discharge: Dec 25, 2016 Admitting Diagnosis: Sepsis Admitting Diagnosis Comment: Elderly female was admitted with sepsis. Developed resp failure and intubated/ extubated 3 times Had to get her a trach Refuses PEG Pt seen and examined this am Plan is to dc to LTAC Total time 31 minutes Final Diagnosis Problems Medical Problems: (1) Respiratory failure Status: Acute Brief Hospital Course Allergies Allergies Coded Allergies Type Severity Reaction Last Updated Verified I S O L A T I O N *CONTACT* Allergy Unknown 11/27/16 Yes Penicillins Adverse Reaction Intermediate NAUSEA AND VOMITING WITH PENICILLIN INJECTIONS/ORAL IS OK 05/12/15 Yes diazepam Adverse Reaction Intermediate NAUSEA AND VOMITING WITH IV DOSES/OK WITH ORAL FORM 05/12/15 Yes ibuprofen Adverse Reaction Intermediate LARGE DOSES CAUSE GI UPSET 05/12/15 Yes Vital Signs Vital Signs Date Time Temp Pulse Resp B/P (MAP) Pulse Ox O2 Delivery O2 Flow Rate FiO2 12/25/16 13:32 94 Ventilator 12/25/16 09:00 74 14 162/76 (104) 12/25/16 07:00 98.0 98.0 12/24/16 22:15 3.0 Lab Results Laboratory Tests Test 12/23/16 18:08 12/24/16 00:20 12/24/16 06:25 12/24/16 06:27 Glucose (Fingerstick) 120 mg/dL (70-99) 102 mg/dL (70-99) 114 mg/dL (70-99) White Blood Count 3.0 x10^3/uL (4.0-11.0) Red Blood Count 2.59 x10^6/uL (3.50-5.40) Hemoglobin 7.8 g/dL (12.0-15.5) Hematocrit 23.5 % (36.0-47.0) Mean Corpuscular Volume 91 fL (79-100) Mean Corpuscular Hemoglobin 30 pg (25-35) Mean Corpuscular Hemoglobin Concent 33 g/dL (31-37) Red Cell Distribution Width 16.3 % (11.5-14.5) Platelet Count 69 x10^3/uL (140-400) Neutrophils (%) (Auto) 70 % (31-73) Lymphocytes (%) (Auto) 22 % (24-48) Monocytes (%) (Auto) 8 % (0-9) Eosinophils (%) (Auto) 0 % (0-3) Basophils (%) (Auto) 1 % (0-3) Neutrophils # (Auto) 2.1 x10^3uL (1.8-7.7) Lymphocytes # (Auto) 0.7 x10^3/uL (1.0-4.8) Monocytes # (Auto) 0.2 x10^3/uL (0.0-1.1) Eosinophils # (Auto) 0.0 x10^3/uL (0.0-0.7) Basophils # (Auto) 0.0 x10^3/uL (0.0-0.2) Sodium Level 146 mmol/L (136-145) Potassium Level 3.5 mmol/L (3.5-5.1) Chloride Level 110 mmol/L (98-107) Carbon Dioxide Level 31 mmol/L (21-32) Anion Gap 5 (6-14) Blood Urea Nitrogen 32 mg/dL (7-20) Creatinine 1.0 mg/dL (0.6-1.0) Estimated GFR (Cockcroft-Gault) 69.4 Glucose Level 114 mg/dL (70-99) Calcium Level 8.1 mg/dL (8.5-10.1) Test 12/24/16 18:13 12/25/16 00:46 12/25/16 05:47 12/25/16 13:16 Glucose (Fingerstick) 87 mg/dL (70-99) 92 mg/dL (70-99) 105 mg/dL (70-99) 84 mg/dL (70-99) Laboratory Tests Test 12/24/16 18:13 12/25/16 00:46 12/25/16 05:47 12/25/16 13:16 Glucose (Fingerstick) 87 mg/dL (70-99) 92 mg/dL (70-99) 105 mg/dL (70-99) 84 mg/dL (70-99) Brief Hospital Course Ms. Ovalle is a 56 old [sex] who presented with [ ] Discharge Information Scheduled Albuterol Sulfate (Albuterol Sulfate Neb Soln), 1 VIAL NEB Q6HRS, (Reported) Bupropion Hcl (Bupropion Hcl), 100 MG PO BID, (Reported) Chlorhexidine Gluconate (Chlorhexidine Gluconate), 15 ML MM BID Duloxetine Hcl (Duloxetine Hcl), 60 MG PO DAILY, (Reported) Furosemide (Furosemide), 40 MG PO DAILY Gabapentin (Gabapentin), 300 MG PO BID, (Reported) Hydroxychloroquine Sulfate (Plaquenil), 200 MG PO BID, (Reported) Insulin Aspart (Novolog Flexpen), 0 UNITS SQ Q6HRS Lisinopril (Lisinopril), 20 MG PO DAILY, (Reported) Multivitamin (Multivitamins), 1 EACH PO DAILY, (Reported) Nystatin (Nystatin), 15 GM TP BID, (Reported) Ondansetron Hcl (Ondansetron Hcl), 8 MG PO DAILY, (Reported) Pregabalin (Lyrica), 150 MG PO DAILY, (Reported) Ranitidine Hcl (Ranitidine Hcl), 75 MG PO BID Ropinirole Hcl (Ropinirole Hcl), 0.25 MG PO DAILY, (Reported) Scheduled PRN Hydralazine Hcl (Hydralazine Hcl), 10 MG IVP PRN Q4HRS PRN for ELEVATED BP, SEE COMMENTS Hydrocodone Bit/Acetaminophen (Hydrocodone-Apap 7.5-325/15 Soln ), 15 ML PO PRN Q6HRS PRN for PAIN Ibuprofen (Ibuprofen), 400 MG PO PRN DAILY PRN for PAIN, (Reported) Morphine Sulfate (Morphine Sulfate), 2 MG IV PRN Q2HR PRN for SEVERE PAIN Ondansetron Hcl/Pf (Ondansetron Hcl 4 Mg/2 Ml Vial), 4 MG IV PRN Q6HRS PRN for NAUSEA/VOMITING Oxycodone Hcl (Oxycodone Hcl), 5 MG PO PRN Q4HRS PRN for PAIN, (Reported) Oxycodone Hcl (Oxycodone Hcl), 5 MG PO PRN Q6HRS PRN for SEVERE PAIN Oxycodone Hcl/Acetaminophen (Oxycodone-Acetaminophen 10-325), 1 EACH PO PRN Q4- 6HRS PRN for PAIN, (Reported) Zolpidem Tartrate (Ambien), 5 MG PO PRN QHS PRN for INSOMNIA Miscellaneous Medications Alprazolam (Alprazolam), 0.25 MG PO, (Reported) Discontinued Medications Azithromycin (Azithromycin Tablet), 250 MG PO DAILY, (Reported) Clonidine Hcl (Clonidine Hcl), 0.1 MG PO DAILY, (Reported) Cromolyn Sodium (Nasal Allergy [place]), 13 ML NS DAILY, (Reported) Famciclovir (Famciclovir), 125 MG PO DAILY, (Reported) Hydroxychloroquine Sulfate (Hydroxychloroquine Sulfate), 200 MG PO DAILY, ( Reported) Hydroxyzine Hcl (Hydroxyzine Hcl), 25 MG PO DAILY, (Reported) SILVINA MORRIS III, DO Dec 25, 2016 14:00
--- NOTE | 2016-12-25 14:47 | PDOC ---
PULMONARY PROGRESS NOTES Subjective PT SITTING UP IN CHAIR NO RESP DISTRESS Vitals Vital Signs Date Time Temp Pulse Resp B/P (MAP) Pulse Ox O2 Delivery O2 Flow Rate FiO2 12/25/16 13:32 94 Ventilator 12/25/16 09:00 74 14 162/76 (104) 12/25/16 07:00 98.0 98.0 12/24/16 22:15 3.0 General: Alert, No acute distress HEENT: Other (TRACH 12/23) Lungs: Clear Cardiovascular: S1, S2 Abdomen: Soft, Non-tender Neuro Exam: Alert Extremities: Other (edema) Skin: Warm Labs Laboratory Tests Test 12/23/16 18:08 12/24/16 00:20 12/24/16 06:25 12/24/16 06:27 Glucose (Fingerstick) 120 mg/dL (70-99) 102 mg/dL (70-99) 114 mg/dL (70-99) White Blood Count 3.0 x10^3/uL (4.0-11.0) Red Blood Count 2.59 x10^6/uL (3.50-5.40) Hemoglobin 7.8 g/dL (12.0-15.5) Hematocrit 23.5 % (36.0-47.0) Mean Corpuscular Volume 91 fL (79-100) Mean Corpuscular Hemoglobin 30 pg (25-35) Mean Corpuscular Hemoglobin Concent 33 g/dL (31-37) Red Cell Distribution Width 16.3 % (11.5-14.5) Platelet Count 69 x10^3/uL (140-400) Neutrophils (%) (Auto) 70 % (31-73) Lymphocytes (%) (Auto) 22 % (24-48) Monocytes (%) (Auto) 8 % (0-9) Eosinophils (%) (Auto) 0 % (0-3) Basophils (%) (Auto) 1 % (0-3) Neutrophils # (Auto) 2.1 x10^3uL (1.8-7.7) Lymphocytes # (Auto) 0.7 x10^3/uL (1.0-4.8) Monocytes # (Auto) 0.2 x10^3/uL (0.0-1.1) Eosinophils # (Auto) 0.0 x10^3/uL (0.0-0.7) Basophils # (Auto) 0.0 x10^3/uL (0.0-0.2) Sodium Level 146 mmol/L (136-145) Potassium Level 3.5 mmol/L (3.5-5.1) Chloride Level 110 mmol/L (98-107) Carbon Dioxide Level 31 mmol/L (21-32) Anion Gap 5 (6-14) Blood Urea Nitrogen 32 mg/dL (7-20) Creatinine 1.0 mg/dL (0.6-1.0) Estimated GFR (Cockcroft-Gault) 69.4 Glucose Level 114 mg/dL (70-99) Calcium Level 8.1 mg/dL (8.5-10.1) Test 12/24/16 18:13 12/25/16 00:46 12/25/16 05:47 12/25/16 13:16 Glucose (Fingerstick) 87 mg/dL (70-99) 92 mg/dL (70-99) 105 mg/dL (70-99) 84 mg/dL (70-99) Laboratory Tests Test 12/24/16 18:13 12/25/16 00:46 12/25/16 05:47 12/25/16 13:16 Glucose (Fingerstick) 87 mg/dL (70-99) 92 mg/dL (70-99) 105 mg/dL (70-99) 84 mg/dL (70-99) Medications Active Scripts Medications Dose Route/Sig Max Daily Dose Days Date Category Oxycodone Hcl 5 Mg Tablet 5 Mg PO PRN Q6HRS PRN 11/28/16 Rx Albuterol Sulfate Neb Soln (Albuterol Sulfate) 1.25 Mg/3 Ml Vial.neb 1 Vial NEB Q6HRS 11/25/16 Reported Ranitidine Hcl 150 Mg Capsule 75 Mg PO DAILY 11/25/16 Reported Ondansetron Hcl 8 Mg Tablet 8 Mg PO DAILY 11/25/16 Reported Azithromycin Tablet (Azithromycin) 250 Mg Tablet 250 Mg PO DAILY 11/25/16 Reported Bupropion Hcl 100 Mg Tablet 100 Mg PO BID 11/25/16 Reported Nasal Allergy [place] (Cromolyn Sodium) 13 Ml [place].pump 13 Ml NS DAILY 11/25/16 Reported Gabapentin 300 Mg Capsule 300 Mg PO BID 11/25/16 Reported Hydroxyzine Hcl 25 Mg Tablet 25 Mg PO DAILY 11/25/16 Reported Nystatin 15 Gm Cream..g. 15 Gm TP BID 11/25/16 Reported Duloxetine Hcl 60 Mg Capsule.dr 60 Mg PO DAILY 11/25/16 Reported Clonidine Hcl 0.1 Mg Tablet 0.1 Mg PO DAILY 11/25/16 Reported Lisinopril 20 Mg Tablet 20 Mg PO DAILY 11/25/16 Reported Famciclovir 125 Mg Tablet 125 Mg PO DAILY 11/25/16 Reported Ropinirole Hcl 0.25 Mg Tablet 0.25 Mg PO DAILY 11/25/16 Reported Hydroxychloroquine Sulfate 200 Mg Tablet 200 Mg PO DAILY 11/25/16 Reported Lyrica (Pregabalin) 150 Mg Capsule 150 Mg PO DAILY 11/25/16 Reported Furosemide 20 Mg Tablet 20 Mg PO DAILY 11/25/16 Reported Alprazolam 0.25 Mg Tablet 0.25 Mg PO 11/25/16 Reported Oxycodone Hcl 5 Mg Tablet 5 Mg PO PRN Q4HRS PRN 11/25/16 Reported Ibuprofen 400 Mg Tablet 400 Mg PO PRN DAILY PRN 05/11/15 Reported Multivitamins (Multivitamin) 1 Each Tablet 1 Each PO DAILY 05/11/15 Reported Oxycodone-Acetaminophen 10-325 (Oxycodone Hcl/Acetaminophen) 1 Each Tablet 1 Each PO PRN Q4-6HRS PRN 05/11/15 Reported Plaquenil (Hydroxychloroquine Sulfate) 200 Mg Tablet 200 Mg PO BID 08/19/13 Reported Impression . PT UP IN CHAIR NO RESP DISTRESS OK TO TRANSFER PT TO [facility] IN AM 1. Acute respiratory failure, multifactorial in etiology. THIRD INTUBATION 12/16 2. Abnormal chest x-ray secondary to volume overload, congestive heart failure /possible pneumonia 3. Septic shock, MRSA bacteremia 4. Hypotension, resolved. 5. Pancytopenia. 6. Systemic lupus erythematosus, immunocompromised. 7. Hyponatremia. 8. Acute kidney injury. 9. History of breast cancer. 10. Hepatitis C. 11. Gastroesophageal reflux disease. 13. ACUTE Blood loss anemia 14. POSITIVE CHARLI 12/16 Plan . PT WITH NO RESP DISTRESS MOVING TO [facility] TODAY S/P TRACH NUTRITION PER GI SUSPECT MOST OF CXR FINDINGS RELATED TO EDEMA, RESP STATUS DETERIORATED REINTUBATED 12/16 FOR THIRD TIME. REINTUBATED 12/10, EXTUBATED 12/13 YASMANY HENSON MD Dec 25, 2016 14:47
== END 2016-12-25 13:50 | DRG 4 ==
LOC: ER 15:40 → 1 WEST ICU 16:43 → 6 SOUTH 12-15 12:59 → 1 WEST ICU 12-16 03:12
PROVIDERS: ADMIT Internal Medicine; ATTEND Internal Medicine
PROC: 0BH17EZ Insertion of Endotracheal Airway into Trachea, Via Natural or Artificial Opening (ICD-10-PCS; 2016-12-06)
PROC: 5A1945Z Respiratory Ventilation, 24-96 Consecutive Hours (ICD-10-PCS; 2016-12-06)
PROC: 5A09357 Assistance with Respiratory Ventilation, Less than 24 Consecutive Hours, Continuous Positive Airway Pressure (ICD-10-PCS; 2016-12-10)
PROC: 5A1955Z Respiratory Ventilation, Greater than 96 Consecutive Hours (ICD-10-PCS; 2016-12-16)
PROC: 0B968ZX Drainage of Right Lower Lobe Bronchus, Via Natural or Artificial Opening Endoscopic, Diagnostic (ICD-10-PCS; 2016-12-16)
PROC: 0DH67UZ Insertion of Feeding Device into Stomach, Via Natural or Artificial Opening (ICD-10-PCS; 2016-12-16)
PROC: 02H633Z Insertion of Infusion Device into Right Atrium, Percutaneous Approach (ICD-10-PCS; 2016-12-17)
PROC: B244ZZZ Ultrasonography of Right Heart (ICD-10-PCS; 2016-12-17)
PROC: 05PY33Z Removal of Infusion Device from Upper Vein, Percutaneous Approach (ICD-10-PCS; 2016-12-18)
PROC: 30233N1 Transfusion of Nonautologous Red Blood Cells into Peripheral Vein, Percutaneous Approach (ICD-10-PCS; 2016-12-19)
PROC: 0B110F4 Bypass Trachea to Cutaneous with Tracheostomy Device, Open Approach (ICD-10-PCS; principal; 2016-12-23 10:00)
DX: A41.02 Sepsis due to Methicillin resistant Staphylococcus aureus (principal); J96.00 Acute respiratory failure, unspecified whether with hypoxia or hypercapnia; E43 Unspecified severe protein-calorie malnutrition; G93.41 Metabolic encephalopathy; J15.212 Pneumonia due to Methicillin resistant Staphylococcus aureus; R65.21 Severe sepsis with septic shock; N39.0 Urinary tract infection, site not specified; E87.1 Hypo-osmolality and hyponatremia; D61.818 Other pancytopenia; D62 Acute posthemorrhagic anemia; E87.0 Hyperosmolality and hypernatremia; I13.0 Hypertensive heart and chronic kidney disease with heart failure and stage 1 through stage 4 chronic kidney disease, or unspecified chronic kidney disease; N17.9 Acute kidney failure, unspecified; R18.8 Other ascites; B19.10 Unspecified viral hepatitis B without hepatic coma; Z99.11 Dependence on respirator [ventilator] status; Z68.41 Body mass index [BMI] 40.0-44.9, adult; T80.219A Unspecified infection due to central venous catheter, initial encounter; B19.20 Unspecified viral hepatitis C without hepatic coma; E11.22 Type 2 diabetes mellitus with diabetic chronic kidney disease; E11.40 Type 2 diabetes mellitus with diabetic neuropathy, unspecified; Z66 Do not resuscitate; E87.5 Hyperkalemia; E87.6 Hypokalemia; F17.210 Nicotine dependence, cigarettes, uncomplicated; F31.9 Bipolar disorder, unspecified; Z51.5 Encounter for palliative care; F41.9 Anxiety disorder, unspecified; G25.81 Restless legs syndrome; G47.00 Insomnia, unspecified; I27.2 Other secondary pulmonary hypertension; I34.0 Nonrheumatic mitral (valve) insufficiency; I50.9 Heart failure, unspecified; K21.9 Gastro-esophageal reflux disease without esophagitis; K74.60 Unspecified cirrhosis of liver; M06.9 Rheumatoid arthritis, unspecified; M32.9 Systemic lupus erythematosus, unspecified; F12.90 Cannabis use, unspecified, uncomplicated; M19.90 Unspecified osteoarthritis, unspecified site; M54.2 Cervicalgia; N18.3 Chronic kidney disease, stage 3 (moderate); R13.12 Dysphagia, oropharyngeal phase; Z22.322 Carrier or suspected carrier of Methicillin resistant Staphylococcus aureus; Z80.0 Family history of malignant neoplasm of digestive organs; Z80.1 Family history of malignant neoplasm of trachea, bronchus and lung; Z80.3 Family history of malignant neoplasm of breast; Z82.49 Family history of ischemic heart disease and other diseases of the circulatory system; Z83.3 Family history of diabetes mellitus; Z85.3 Personal history of malignant neoplasm of breast; Z85.41 Personal history of malignant neoplasm of cervix uteri; Z86.14 Personal history of Methicillin resistant Staphylococcus aureus infection; Z88.0 Allergy status to penicillin; Z90.11 Acquired absence of right breast and nipple; Z93.0 Tracheostomy status; Z92.21 Personal history of antineoplastic chemotherapy; Z87.01 Personal history of pneumonia (recurrent); Z90.49 Acquired absence of other specified parts of digestive tract; Z88.8 Allergy status to other drugs, medicaments and biological substances
CPT/HCPCS: 31500; 36415; 36556; 36590; 36600; 51702; 71010; 74000; 74177; 76937; 80048; 80053; 80202; 81001; 82140; 82274; 82805; 82962; 83605; 83735; 83880; 85007; 85027; 85610; 85730; 86140; 86850; 86900; 86901; 86920; 87040; 87045; 87070; 87086; 87186; 87205; 87324; 87641; 93005; 93306; 93312; 93325; 93971; 94002; 94003; 94070; 94640; 94660; 96365; 96366; 96368; 96375; A6539; C1892; C9113; G0481; J0330; J0360; J0610; J0712; J1100; J1265; J1630; J1644; J1720; J1815; J1940; J1956; J2001; J2060; J2185; J2250; J2270; J2405; J2704; J2710; J2997; J3010; J3370; J3480; J3490; J7030; J7040; J7050; J7620; P9016; S0028; 92610; 97110; 97530; 97535; 99285-25

== ENCOUNTER 2018-01-08 13:24 | Emergency (ER) | payer MEDICARE, OTHER ==
[2018-01-08] MEDS: ONDANSETRON PF 4 MG/2 ML VIAL. IV (14:08)
[2018-01-08] MEDS: IV NORMAL SALINE 1000ML BAG 1,000 ML IV (14:08)
[2018-01-08 14:18] LABS: ADD MAN DIFF? NO
[2018-01-08 14:21] LABS: BASO % 1 % (0-3); EOS # 0.2 x10^3/uL (0.0-0.7); EOS % 4 % (0-3); HEMATOCRIT 41.1 % (36.0-47.0); HEMOGLOBIN 14.2 g/dL (12.0-15.5); LYMPH # 2.1 x10^3/uL (1.0-4.8); LYMPH % 42 % (24-48); MEAN CORPUSCULAR HEMOGLOBIN 31 pg (25-35); MEAN CORPUSCULAR HGB CONC 35 g/dL (31-37); MEAN CORPUSCULAR VOLUME 89 fL (79-100); MONO # 0.3 x10^3/uL (0.0-1.1); MONO % 7 % (0-9); NEUT # 2.3 x10^3uL (1.8-7.7); NEUT % 47 % (31-73); PLATELET COUNT 166 x10^3/uL (140-400); RED BLOOD COUNT 4.62 x10^6/uL (3.50-5.40); RED CELL DISTRIBUTION WIDTH 13.9 % (11.5-14.5); WHITE BLOOD COUNT 4.9 x10^3/uL (4.0-11.0)
[2018-01-08 14:29] LABS: ANION GAP 12 (6-14); BLOOD UREA NITROGEN 33 mg/dL (7-20); BUN/CREATININE RATIO 24 (6-20); CALCIUM 9.2 mg/dL (8.5-10.1); CARBON DIOXIDE 23 mmol/L (21-32); CHLORIDE 104 mmol/L (98-107); CREATININE 1.4 mg/dL (0.6-1.0); GFR 46.9; GLUCOSE 133 mg/dL (70-99); POTASSIUM 3.9 mmol/L (3.5-5.1); SODIUM 139 mmol/L (136-145)
[2018-01-08 14:35] LABS: ALBUMIN 3.9 g/dL (3.4-5.0); ALBUMIN/GLOBULIN RATIO 0.9 (1.0-1.7); ALK PHOS 95 U/L (46-116); ALT (SGPT) 34 U/L (14-59); AST (SGOT) 22 U/L (15-37); LIPASE 230 U/L (73-393); TOTAL BILIRUBIN 0.6 mg/dL (0.2-1.0); TOTAL PROTEIN 8.1 g/dL (6.4-8.2)
[2018-01-08 15:49] LABS: BILIRUBIN,URINE NEGATIVE (NEG); CLARITY,URINE CLEAR; COLOR,URINE YELLOW; GLUCOSE,URINE NEGATIVE (NEG); NITRITE,URINE NEGATIVE (NEG); PH,URINE 5.5; PROTEIN,URINE 30 mg/dL (NEG-TRACE); UROBILINOGEN,URINE 0.2 mg/dL (0.2 mg/dL)
[2018-01-08 16:05] LABS: BACTERIA,URINE 0 /HPF (0-FEW); HYALINE CASTS, URINE FEW /HPF; RBC,URINE 0 /HPF (0-2); SQUAMOUS EPITHELIAL CELL,UR FEW /LPF
== END 2018-01-08 16:29 | disposition home or self-care (01) ==
LOC: ER 13:24
DX: R19.7 Diarrhea, unspecified (principal); E86.0 Dehydration; K21.9 Gastro-esophageal reflux disease without esophagitis; F31.9 Bipolar disorder, unspecified; Z86.14 Personal history of Methicillin resistant Staphylococcus aureus infection; F17.200 Nicotine dependence, unspecified, uncomplicated; Z88.0 Allergy status to penicillin; Z88.8 Allergy status to other drugs, medicaments and biological substances; Z91.041 Radiographic dye allergy status
CPT/HCPCS: 36415; 80053; 81001; 83690; 85025; 96361; 96374; 99284-25; J2405; J7030